=== PATIENT | female | born 1945 | race Caucasian/White ===

== ENCOUNTER 2023-01-22 11:40 | Outpatient (OUT) | payer MEDICARE, OTHER, SELFPAY ==
[2023-01-22 12:27] LABS: Eosinophils Absolute Auto 0.2 10^3/uL (0.0-0.7); Eosinophils Percent Auto 5.8 % (0.9-7.0); Hematocrit 24.2 % (36.0-48.0); Hemoglobin 7.4 g/dL (12.0-16.0); Immature Granulocytes Abs Auto 0.02 10^3/uL (0.00-0.03); Immature Granulocytes Pct Auto 0.5 % (0.0-0.5); Lymphocytes Absolute Auto 0.9 10^3/uL (1.2-3.8); Lymphocytes Percent Auto 22.8 % (20.5-60.0); Mean Corpuscular HGB Conc 30.6 g/dL (29.9-35.2); Mean Corpuscular Hemoglobin 31.2 pg (26.7-34.0); Mean Corpuscular Volume 102.1 fL (81.0-99.0); Mean Platelet Volume 10.7 fL (9.5-13.5); Monocytes Absolute Auto 0.3 10^3/uL (0.3-0.8); Monocytes Percent Auto 7.7 % (1.7-12.0); Neutrophils Absolute Auto 2.6 10^3/uL (1.4-6.5); Neutrophils Percent Auto 62.2 % (43.0-75.0); Platelet Count 284 10^3/uL (150-450); Red Blood Count 2.37 10^6/uL (4.20-5.40); Red Cell Distribution Width 15.6 % (11.0-15.0); White Blood Count 4.1 10^3/uL (4.0-11.0)
[2023-01-22 12:32] LABS: Percent Iron Saturation 8.7 %
[2023-01-22 12:34] LABS: Alanine Aminotransferase 15 U/L (14-59); Albumin Level 3.7 g/dL (3.4-5.0); Alkaline Phosphatase 121 U/L (46-116); Anion Gap 12.7; Aspartate Amino Transferase 15 U/L (15-37); BUN Creatinine Ratio 18.9; Bilirubin Total 0.2 mg/dL (0.2-1.0); Calcium 8.7 mg/dL (8.5-10.1); Carbon Dioxide 28.6 mmol/L (21.0-32.0); Chloride 102 mmol/L (98-107); Estimated GFR (African America 29 (>=60); Estimated GFR (Non-African Ame 24 (>=60); Globulin 3.7 g/dL; Glucose 112 mg/dL (74-106); Potassium 4.3 mmol/L (3.5-5.1); Sodium 139 mmol/L (136-145); Total Protein 7.4 g/dL (6.4-8.2)
== END 2023-01-22 11:41 ==
LOC: LAB 11:45
PROVIDERS: PCP Family Medicine
DX: D50.9 Iron deficiency anemia, unspecified (principal)
CPT/HCPCS: 36415; 80053; 82728; 83540; 83550; 85025

== ENCOUNTER 2023-03-08 13:24 | Outpatient (OUT) | payer MEDICARE, OTHER, SELFPAY ==
[2023-03-08 14:05] LABS: Basophils Absolute Auto 0.1 10^3/uL (0.0-0.1); Basophils Percent Auto 1.3 % (0.2-2.0); Eosinophils Absolute Auto 0.3 10^3/uL (0.0-0.7); Eosinophils Percent Auto 7.3 % (0.9-7.0); Hemoglobin 8.1 g/dL (12.0-16.0); Immature Granulocytes Abs Auto 0.01 10^3/uL (0.00-0.03); Immature Granulocytes Pct Auto 0.2 % (0.0-0.5); Lymphocytes Percent Auto 21.4 % (20.5-60.0); Mean Corpuscular HGB Conc 31.2 g/dL (29.9-35.2); Mean Corpuscular Hemoglobin 32.1 pg (26.7-34.0); Mean Corpuscular Volume 103.2 fL (81.0-99.0); Mean Platelet Volume 9.2 fL (9.5-13.5); Monocytes Absolute Auto 0.4 10^3/uL (0.3-0.8); Monocytes Percent Auto 9.3 % (1.7-12.0); Neutrophils Absolute Auto 2.8 10^3/uL (1.4-6.5); Neutrophils Percent Auto 60.5 % (43.0-75.0); Platelet Count 279 10^3/uL (150-450); Red Blood Count 2.52 10^6/uL (4.20-5.40); Red Cell Distribution Width 16.1 % (11.0-15.0); White Blood Count 4.6 10^3/uL (4.0-11.0)
[2023-03-08 15:06] LABS: Percent Iron Saturation 10.6 %
[2023-03-08 15:13] LABS: Alanine Aminotransferase 16 U/L (14-59); Albumin Globulin Ratio 1.1; Albumin Level 3.8 g/dL (3.4-5.0); Alkaline Phosphatase 100 U/L (46-116); Anion Gap 11.6; Aspartate Amino Transferase 16 U/L (15-37); BUN Creatinine Ratio 19.5; Bilirubin Total 0.2 mg/dL (0.2-1.0); Calcium 8.9 mg/dL (8.5-10.1); Carbon Dioxide 30.6 mmol/L (21.0-32.0); Chloride 104 mmol/L (98-107); Estimated GFR (African America 37 (>=60); Estimated GFR (Non-African Ame 30 (>=60); Globulin 3.4 g/dL; Glucose 78 mg/dL (74-106); Potassium 4.2 mmol/L (3.5-5.1); Sodium 142 mmol/L (136-145); Total Protein 7.2 g/dL (6.4-8.2)
== END 2023-03-08 13:25 | disposition home or self-care (01) ==
LOC: LAB 13:27
PROVIDERS: PCP Internal Medicine
DX: D50.9 Iron deficiency anemia, unspecified (principal)
CPT/HCPCS: 36415; 80053; 82728; 83540; 83550; 85025

== ENCOUNTER 2023-04-06 12:28 | Outpatient (OUT) | payer MEDICARE, OTHER, SELFPAY ==
[2023-04-06 12:57] LABS: Basophils Absolute Auto 0.1 10^3/uL (0.0-0.1); Basophils Percent Auto 1.2 % (0.2-2.0); Eosinophils Absolute Auto 0.4 10^3/uL (0.0-0.7); Eosinophils Percent Auto 7.5 % (0.9-7.0); Hematocrit 29.3 % (36.0-48.0); Hemoglobin 9.2 g/dL (12.0-16.0); Immature Granulocytes Abs Auto 0.03 10^3/uL (0.00-0.03); Immature Granulocytes Pct Auto 0.6 % (0.0-0.5); Lymphocytes Absolute Auto 0.8 10^3/uL (1.2-3.8); Mean Corpuscular HGB Conc 31.4 g/dL (29.9-35.2); Mean Corpuscular Hemoglobin 32.5 pg (26.7-34.0); Mean Corpuscular Volume 103.5 fL (81.0-99.0); Mean Platelet Volume 9.6 fL (9.5-13.5); Monocytes Absolute Auto 0.4 10^3/uL (0.3-0.8); Monocytes Percent Auto 8.1 % (1.7-12.0); Neutrophils Absolute Auto 3.3 10^3/uL (1.4-6.5); Neutrophils Percent Auto 65.6 % (43.0-75.0); Platelet Count 263 10^3/uL (150-450); Red Blood Count 2.83 10^6/uL (4.20-5.40); Red Cell Distribution Width 15.8 % (11.0-15.0)
[2023-04-06 14:24] LABS: Percent Iron Saturation 11.6 %
== END 2023-04-06 12:29 | disposition home or self-care (01) ==
LOC: LAB 12:30
PROVIDERS: PCP Internal Medicine; Visit Provider Urology
DX: D50.9 Iron deficiency anemia, unspecified (principal); E03.9 Hypothyroidism, unspecified
CPT/HCPCS: 36415; 82728; 83540; 83550; 84443; 85025

== ENCOUNTER 2023-04-06 12:32 | Outpatient (OUT) | payer MEDICARE, OTHER, SELFPAY ==
[2023-04-06 13:28] LABS: Thyroid Stimulating Hormone 9.451 uIU/mL (0.358-3.740)
== END 2023-04-06 12:33 | disposition home or self-care (01) ==
PROVIDERS: PCP Internal Medicine; Visit Provider Internal Medicine
DX: E03.9 Hypothyroidism, unspecified (principal)
CPT/HCPCS: 36415; 84443

== ENCOUNTER 2023-05-05 10:19 | Outpatient (OUT) | payer MEDICARE, OTHER, SELFPAY ==
--- NOTE | 2023-05-05 10:44 | XR_ITS ---
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 The lungs are clear. There is no evidence of pleural effusion or pneumothorax. There are calcified nodes of the left hilar region, stable. There is calcification of the left mitral valve annulus, stable. XR/XR chest 2V IMPRESSION: Chest radiograph is essentially within normal limits. Stable chest. Electronically authenticated by: MJ REEVES Date: 05/05/2023 11:12
== END 2023-05-05 10:20 | disposition home or self-care (01) ==
LOC: RAD 10:22
PROVIDERS: PCP Internal Medicine; Visit Provider Internal Medicine
DX: J44.1 Chronic obstructive pulmonary disease with (acute) exacerbation (principal)
CPT/HCPCS: 71046

== ENCOUNTER 2023-05-05 10:26 | Outpatient (OUT) | payer MEDICARE, OTHER, SELFPAY ==
[2023-05-05 11:42] LABS: Basophils Absolute Auto 0.1 10^3/uL (0.0-0.1); Basophils Percent Auto 1.1 % (0.2-2.0); Eosinophils Absolute Auto 0.1 10^3/uL (0.0-0.7); Eosinophils Percent Auto 0.9 % (0.9-7.0); Hematocrit 28.6 % (36.0-48.0); Immature Granulocytes Abs Auto 0.09 10^3/uL (0.00-0.03); Immature Granulocytes Pct Auto 1.6 % (0.0-0.5); Lymphocytes Absolute Auto 0.8 10^3/uL (1.2-3.8); Lymphocytes Percent Auto 14.7 % (20.5-60.0); Mean Corpuscular HGB Conc 31.5 g/dL (29.9-35.2); Mean Corpuscular Hemoglobin 32.6 pg (26.7-34.0); Mean Corpuscular Volume 103.6 fL (81.0-99.0); Mean Platelet Volume 10.1 fL (9.5-13.5); Monocytes Absolute Auto 0.3 10^3/uL (0.3-0.8); Monocytes Percent Auto 4.9 % (1.7-12.0); Neutrophils Absolute Auto 4.2 10^3/uL (1.4-6.5); Neutrophils Percent Auto 76.8 % (43.0-75.0); Platelet Count 405 10^3/uL (150-450); Red Blood Count 2.76 10^6/uL (4.20-5.40); Red Cell Distribution Width 16.3 % (11.0-15.0); White Blood Count 5.5 10^3/uL (4.0-11.0)
[2023-05-05 12:37] LABS: Percent Iron Saturation 18.7 %
== END 2023-05-05 10:27 | disposition home or self-care (01) ==
LOC: LAB 10:28
PROVIDERS: PCP Internal Medicine
DX: D50.9 Iron deficiency anemia, unspecified (principal)
CPT/HCPCS: 36415; 82728; 83540; 83550; 85025

== ENCOUNTER 2023-05-18 09:56 | Outpatient (OUT) | payer MEDICARE, OTHER, SELFPAY ==
[2023-05-18 10:25] LABS: Basophils Percent Auto 0.4 % (0.2-2.0); Eosinophils Absolute Auto 0.2 10^3/uL (0.0-0.7); Eosinophils Percent Auto 2.6 % (0.9-7.0); Hematocrit 31.1 % (36.0-48.0); Hemoglobin 9.7 g/dL (12.0-16.0); Immature Granulocytes Abs Auto 0.06 10^3/uL (0.00-0.03); Immature Granulocytes Pct Auto 0.8 % (0.0-0.5); Lymphocytes Absolute Auto 0.8 10^3/uL (1.2-3.8); Lymphocytes Percent Auto 10.3 % (20.5-60.0); Mean Corpuscular HGB Conc 31.2 g/dL (29.9-35.2); Mean Corpuscular Hemoglobin 32.3 pg (26.7-34.0); Mean Corpuscular Volume 103.7 fL (81.0-99.0); Mean Platelet Volume 11.3 fL (9.5-13.5); Monocytes Absolute Auto 0.7 10^3/uL (0.3-0.8); Monocytes Percent Auto 9.5 % (1.7-12.0); Neutrophils Absolute Auto 5.9 10^3/uL (1.4-6.5); Neutrophils Percent Auto 76.4 % (43.0-75.0); Platelet Count 198 10^3/uL (150-450); Red Cell Distribution Width 16.8 % (11.0-15.0); White Blood Count 7.8 10^3/uL (4.0-11.0)
[2023-05-18 15:54] LABS: Anion Gap 13.6; Bilirubin Total 0.2 mg/dL (0.2-1.0); Calcium 8.1 mg/dL (8.5-10.1); Carbon Dioxide 26.2 mmol/L (21.0-32.0); Chloride 105 mmol/L (98-107); Estimated GFR (African America 29 (>=60); Estimated GFR (Non-African Ame 24 (>=60); Glucose 118 mg/dL (74-106); Potassium 3.8 mmol/L (3.5-5.1); Sodium 141 mmol/L (136-145)
[2023-05-18 15:55] LABS: Alanine Aminotransferase 17 U/L (14-59); Albumin Globulin Ratio 0.9; Albumin Level 3.2 g/dL (3.4-5.0); Alkaline Phosphatase 110 U/L (46-116); Aspartate Amino Transferase 13 U/L (15-37); Globulin 3.4 g/dL; Total Protein 6.6 g/dL (6.4-8.2)
== END 2023-05-18 09:57 | disposition home or self-care (01) ==
LOC: LAB 09:58
PROVIDERS: PCP Internal Medicine; Visit Provider Internal Medicine
DX: K92.2 Gastrointestinal hemorrhage, unspecified (principal); I10 Essential (primary) hypertension; I95.9 Hypotension, unspecified
CPT/HCPCS: 36415; 80053; 85025

== ENCOUNTER 2023-07-09 08:45 | Outpatient (OUT) | payer MEDICARE, OTHER, SELFPAY ==
[2023-07-09 10:19] LABS: Free T3 2.02 pg/mL (2.18-3.98); Thyroid Stimulating Hormone 3.217 uIU/mL (0.358-3.740)
[2023-07-09 11:08] LABS: Free T4 0.95 ng/dL (0.76-1.46)
== END 2023-07-09 08:46 | disposition home or self-care (01) ==
LOC: LAB 08:46
PROVIDERS: PCP Internal Medicine; Visit Provider Internal Medicine
DX: D50.9 Iron deficiency anemia, unspecified (principal); E03.9 Hypothyroidism, unspecified
CPT/HCPCS: 36415; 82728; 83540; 83550; 84436; 84439; 84443; 84481; 85025

== ENCOUNTER 2023-07-09 08:48 | Outpatient (OUT) | payer MEDICARE, OTHER, SELFPAY ==
[2023-07-09 09:08] LABS: Basophils Absolute Auto 0.1 10^3/uL (0.0-0.1); Basophils Percent Auto 1.4 % (0.2-2.0); Eosinophils Absolute Auto 0.4 10^3/uL (0.0-0.7); Eosinophils Percent Auto 9.1 % (0.9-7.0); Hematocrit 38.9 % (36.0-48.0); Hemoglobin 12.4 g/dL (12.0-16.0); Immature Granulocytes Abs Auto 0.03 10^3/uL (0.00-0.03); Immature Granulocytes Pct Auto 0.7 % (0.0-0.5); Lymphocytes Percent Auto 22.4 % (20.5-60.0); Mean Corpuscular HGB Conc 31.9 g/dL (29.9-35.2); Mean Corpuscular Hemoglobin 33.3 pg (26.7-34.0); Mean Corpuscular Volume 104.6 fL (81.0-99.0); Mean Platelet Volume 11.7 fL (9.5-13.5); Monocytes Absolute Auto 0.4 10^3/uL (0.3-0.8); Monocytes Percent Auto 8.4 % (1.7-12.0); Neutrophils Absolute Auto 2.6 10^3/uL (1.4-6.5); Platelet Count 191 10^3/uL (150-450); Red Blood Count 3.72 10^6/uL (4.20-5.40); White Blood Count 4.4 10^3/uL (4.0-11.0)
[2023-07-09 10:03] LABS: Percent Iron Saturation 79.7 %
== END 2023-07-09 08:49 | disposition home or self-care (01) ==
PROVIDERS: PCP Internal Medicine
DX: D50.9 Iron deficiency anemia, unspecified (principal)
CPT/HCPCS: 36415; 82728; 83540; 83550; 85025

== ENCOUNTER 2024-02-25 08:46 | Outpatient (OUT) | payer MEDICARE, OTHER, SELFPAY ==
--- OUTSIDE RECORDS SUMMARY | 2024-02-25 08:50 | XMS_ITS ---
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 Name Role Phone Alem Jimenez Unavailable Jarrell Granados Unavailable DO Ceasar Dunn Primary Care Provider MD Bell Camargo Attending Provider MD Jarrell Granados Referring Provider [phone] DO Ceasar Dunn Primary Care Provider MD Bell Camargo Attending Provider [phone] MD Jarrell Garnados Referring Provider Ceasar Dunn Unavailable Unavailable Unavailable DO Ceasar Dunn Primary Care Provider [phone] MD Bell Camargo Attending Provider MD Jarrell Granados Referring Provider DO Ceasar Dunn Primary Care Provider MD Bell Camargo Attending Provider [phone] MD Jarrell Granados Referring Provider RAMAN, DR BELL Maldonado Attending Unavailable RAMAN, DR BELL Maldonado Admitting Unavailable RAMAN, DR BELL Maldonado Consulting Unavailable HOUSE, DR MCDONOUGH Primary Care Unavailable RAMAN, DR BELL Maldonado Attending Unavailable RAMAN, DR BELL Maldonado Admitting Unavailable RAMAN, DR BELL Maldonado Consulting Unavailable HOUSE, DR MCDONOUGH Primary Care Unavailable RAMAN, DR BELL Maldonado Attending Unavailable RAMAN, DR BELL Maldonado Admitting Unavailable RAMAN, DR BELL Maldonado Consulting Unavailable HOUSE, DR MCDONOUGH Primary Care Unavailable RAMAN, DR BELL Maldonado Attending Unavailable RAMAN, DR BELL Maldonado Admitting Unavailable RAMAN, DR BELL Maldonado Consulting Unavailable HOUSE, DR MCDONOUGH Primary Care Unavailable RAMAN, DR BELL Maldonado Attending Unavailable RAMAN, DR BELL Maldonado Admitting Unavailable HOUSE, DR MCDONOUGH Primary Care Unavailable RAMAN, DR BELL Maldonado Consulting Unavailable RAMAN, DR BELL Maldonado Attending Unavailable RAMAN, DR BELL Maldonado Admitting Unavailable HOUSE, DR MCDONOUGH Primary Care Unavailable RAMAN, DR BELL Maldonado Consulting Unavailable RAMAN, DR BELL Maldonado Attending Unavailable RAMAN, DR BELL Maldonado Admitting Unavailable RAMAN, DR BELL Maldonado Consulting Unavailable HOUSE, DR MCDONOUGH Primary Care Unavailable HOUSE, DR MCDONOUGH Attending Unavailable HOUSE, DR MCDONOUGH Admitting Unavailable HOUSE, DR MCDONOUGH Primary Care Unavailable HOUSE, DR MCDONOUGH Consulting Unavailable ZIEBER, DR LOVE De La Rosa Consulting Unavailable HOUSE, DR MCDONOUGH Primary Care Unavailable RAMAN, DR BELL Maldonado Attending Unavailable RAMAN, DR BELL Maldonado Admitting Unavailable RAMAN, DR BELL Maldonado Consulting Unavailable IVÁN, DR OROZCO Attending Unavailable IVÁN, DR OROZCO Admitting Unavailable HOUSE, DR MCDONOUGH Primary Care Unavailable PAY ., DR SHIN Consulting Unavailable IVÁN, DR OROZCO Consulting Unavailable GRECHNY ., JAIME DORADO Consulting Unavailabl e KLIPPER, ALEM Consulting Unavailable REINECK, DR THERESA Wiley Consulting Unavailabl e REINECK, DR THERESA Wiley Attending Unavailabl e HOUSE, DR MCDONOUGH Primary Care Unavailable REINECK, DR THERESA Wiley Admitting Unavailabl e MARYLOU, ASIYA Consulting Unavailable HOUSE, DR MCDONOUGH Primary Care Unavailable RAMAN, DR BELL Maldonado Attending Unavailable RAMAN, DR BELL Maldonado Admitting Unavailable RAMAN, DR BELL Maldonado Consulting Unavailable Markell, DO Mcdonough Primary Care Provider MD Bell Camargo Attending Provider [phone] MD Jarrell Granados Referring Provider [phone] DO Ceasar Dunn Primary Care Provider MD Bell Camargo Attending Provider [phone] MD Jarrell Granados Referring Provider DO Ceasar Dunn Primary Care Provider [phone] MD Bell Camargo Attending Provider MD Jarrell Granados Referring Provider [phone] Criss Nunez Unavailable Tamar Alvarado Unavailable MD Bell Camargo Attending Provider MD Jarrell Granados Referring Provider IRINA Lomas Primary Care Provider Shaikh Reece MD Primary Care Provider NINFA FAM Attending Unavailable GIGI CASON Attending Unavailable MD Bell Camargo Attending Provider MD Jarrell Granados Referring Provider [phone] IRINA Lomas Primary Care Provider JAYY LOMAS Attending Unavailable JAYY LOMAS Attending Unavailable JAYY LOMAS Attending Unavailable Jayy Lomas Primary Care Unavailable Bell Camargo Admitting Unavailable Bell Camargo Attending Unavailable Jarrell Granados Referring Unavailable Allergies Allergy Classification Reported Allergen(s) Allergy Type Date of Onset Reaction(s) Facility (4 sources) Flecainide; Translations: [Flecainide Acetate TABS] Drug Allergy Hives, Dizziness -[facility] [facility] DO Work Phone: Encounters Encounter Date Encounter Type Care Provider Facility Start: 02-03-2024 ambulatory Jayy Lomas Facility:[facility] Start: 01-24-2024 End: 01-24-2024 ambulatory JAYY LOMAS Not Available Start: 01-07-2024 End: 01-07-2024 ambulatory MD Jarrell Granados Work Phone: [facility] Work Phone: Start: 01-07-2024 End: 01-07-2024 Patient encounter procedure MD Jarrell Granados Work Phone: [facility] Work Phone: Start: 01-06-2024 Registered Recurring MD Tanmay Granados Work Phone: [facility] Work Phone: Start: 01-06-2024 End: 01-06-2024 Patient encounter procedure MD Jarrell Granados [facility] Work Phone: Start: 11-17-2023 End: 11-17-2023 ambulatory JAYY Waldrop DIRK Not Available Start: 10-14-2023 End: 10-14-2023 ambulatory GIGI [facility] Start: 09-28-2023 Registered Recurring MD Tanmay Granados [facility] Work Phone: Start: 09-28-2023 End: 09-28-2023 ambulatory MD Jarrell Granados Work Phone: [facility] Work Phone: Start: 09-28-2023 End: 09-28-2023 Patient encounter procedure MD Jarrell Granados Work Phone: [facility] Work Phone: Start: 09-26-2023 Tonie Reece MD Work Phone: [facility] Comment on above: Hypothyroidism, unsp ecified (CMS/HCC) Start: 09-23-2023 End: 09-23-2023 ambulatory JAYY Palma LOMAS Not Available Start: 09-18-2023 End: 09-18-2023 ambulatory Tamar Alvarado Other [employer] Other Start: 09-18-2023 Office outpatient visit 25 minutes Tamar Alvarado [facility] Start: 08-08-2023 End: 08-08-2023 ambulatory Criss Enrique Other [employer] Other Start: 08-08-2023 Office outpatient visit 15 minutes Criss Enrique [facility] Start: 08-08-2023 End: 08-08-2023 Patient encounter procedure MD Jarrell Granados Work Phone: [facility] Work Phone: Start: 06-10-2023 End: 06-10-2023 ambulatory DO Ceasar House Work Phone: [facility] Work Phone: Start: 06-10-2023 End: 06-10-2023 Registered Recurring DO Ceasar House Work Phone: [facility] Work Phone: Start: 03-30-2023 End: 03-30-2023 ambulatory [facility] Start: 03-10-2023 End: 03-10-2023 ambulatory DO Ceasar House Work Phone: [facility] Work Phone: Start: 03-10-2023 End: 03-10-2023 Registered Recurring DO Ceasar House Work Phone: [facility] Work Phone: Start: 01-27-2023 End: 01-27-2023 ambulatory DO Ceasar House Work Phone: [facility] Work Phone: Start: 01-27-2023 End: 01-27-2023 Registered Recurring DO Ceasar House Work Phone: [facility] Work Phone: Start: 11-27-2022 End: 11-27-2022 ambulatory DO Ceasar House Work Phone: [facility] Work Phone: Start: 11-27-2022 End: 11-27-2022 Registered Recurring DO Ceasar House Work Phone: [facility] Work Phone: Start: 11-24-2022 End: 11-25-[address] CEASAR DUNN Facility:[facility] Start: 09-25-2022 End: 09-26-[address] CEASAR DUNN Facility:[facility] Start: 08-25-2022 End: 08-26-[address] BELL CAMARGO Facility:[facility] Start: 08-19-2022 End: 08-19-[address] PAM MINOR Facility:[facility] Start: 07-02-2022 Rx Renewal Ceasar P Hous e Work Phone: [facility] 600 DO Work Phone: Start: 06-19-2022 End: 06-19-2022 ambulatory Jarrell Granados Other [facility] [employer] Other Start: 06-19-2022 Patient encounter procedure Jarrell Granados [facility] Start: 06-03-2022 Rx Renewal Ceasar P Hous e Work Phone: [facility] [place] 250 DO Work Phone: Start: 05-28-2022 End: 05-28-2022 ambulatory DO Ceasar House Work Phone: [facility] Work Phone: Start: 05-28-2022 End: 05-28-2022 Registered Recurring DO Ceasar House Work Phone: [facility] Start: 05-25-2022 End: 05-26-[address] BELL CAMARGO Facility:[facility] Start: 04-23-2022 End: 04-23-2022 Registered Recurring DO Ceasar House Work Phone: [facility] Start: 04-16-2022 End: 04-17-[address] BELL CAMARGO Facility:[facility] Start: 04-09-2022 End: 04-10-[address] BELL CAMARGO Facility:[facility] Start: 02-27-2022 End: 02-28-[address] BELL CAMARGO Facility:[facility] Start: 02-21-2022 End: 02-21-[address] THERESA ENGLISH Facility:[facility] Start: 01-30-2022 End: 01-31-[address] BELL CAMARGO Facility:[facility] Start: 01-01-2022 End: 01-02-[address] BELL CAMARGO Facility:[facility] Start: 12-22-2021 End: 12-23-[address] CEASAR DUNN Facility:[facility] Start: 11-12-2021 Patient encounter procedure Ceasar Dunn Work Phone: [facility] DO Work Phone: Start: 10-23-2021 End: 10-23-2021 ambulatory Jarrell Sandrasalinaalex Other [employer] Other Start: 10-23-2021 Patient encounter procedure Jarrell Granados [facility] Start: 09-29-2021 End: 09-29-2021 ambulatory Jarrell Sandrabaltazar Other [employer] Other Start: 09-29-2021 Telephone encounter Jarrell FLORES [facility] Start: 09-22-2021 End: 09-22-2021 ambulatory Jarrell Sandrabaltazar Other [employer] Other Start: 09-22-2021 Telephone encounter Jarrell FLORES [facility] Start: 09-10-2021 End: 09-10-2021 ambulatory Alem Jimenez Other [employer] Other Start: 09-10-2021 Telephone encounter Alem Jimenez [facility] Start: 09-04-2021 End: 09-04-2021 ambulatory Jarrell Sandrabaltazar Other [employer] Other Start: 09-04-2021 [facility] visit new patient Jarrell Sandrabaltazar [facility] Medical Equipment Procedure Code Equipment Code Equipment Origin al Text Equipment Identifier Dates Capsule endoscopy, for patency of lumen evaluation Video capsule endoscopy system [id number] [facility] Start: 10-15-2021 Goals Date Patient Goal Desired Activity /State Immunizations Immunization Date Immunization Notes [facility] Influenza, Seasonal, Quadrivalent, Adjuvanted Shaikh Chevy LUBIN Work Phone: [facility] 06-11-2023 RSV, recombinant, protein subunit RSVpreF, adjuvant reconstitu, 120mcg/0.5mL, PF (Arexvy) Shaikh Chevy LUBIN Work Phone: [facility] 06-18-2022 Influenza, Seasonal, Quadrivalent, Adjuvanted Shaikh Chevy LUBIN Work Phone: [facility] 06-21-2021 influenza, high dose seasonal, preservative-free Ceasar [facility] Work Phone: 05-27-2020 Fluad Quadrivalent 0 .5 ML Intramuscular Prefilled Syringe Ceasar P [employer] [facility] Work Phone: 05-23-2020 influenza, seasonal, injectable Ceasar P Cambria [facility] DO Work Phone: 07-26-2019 Seasonal trivalent influenza vaccine, adjuvanted, preservative free Ceasar P House [facility] DO Work Phone: 06-23-2019 influenza, high dose seasonal, preservative-free Ceasar P Cambria Work Phone: [facility] 250 DO Work Phone: 05-23-2018 influenza virus vaccine, unspecified formulation Ceasar P Cambria Work Phone: [facility] 250 DO Work Phone: 05-09-2018 Seasonal trivalent influenza vaccine, adjuvanted, preservative free Ceasar P House [facility] DO Work Phone: 05-02-2017 Seasonal trivalent influenza vaccine, adjuvanted, preservative free Ceasar P House Work Phone: [facility] [place] DO Work Phone: 06-14-2016 pneumococcal conjuga te vaccine, 13 valent [email or web address] [facility] Phone[facility] Work Phone: 06-16-2015 influenza, high dose seasonal, preservative-free [email or web address] [facility] DO Work Phone: 06-16-2015 pneumococcal conjuga te vaccine, 13 valent [email or web address] Work Phone: [facility] [place] [facility] DO Work Phone: Medications Current Medications Medication Drug Class(es) Dates Sig (Normalized) Sig (Original) albuterol 0.83 mg/ml inhalation solution (4 sources) beta2-Adrenergic Agonist Start: 05-28-2023 albuterol (2.5 MG/3ML) 0.083% nebulizer solution Take 2.5 mg by nebulization every 4 (four) hours if needed 0 05/28/2023 Active Start: 04-14-2023 take 2 puff(s) by in halation every four hours albuterol HFA 90 mcg/act inhaler Inhale 2 puffs every 4 (four) hours if needed 0 04/14/2023 Active Albuterol Sulfat e (2.5 MG/3ML) 0.083% 3 mL as needed Inhalation every 6 hrs Active amLODIPine 5 mg oral tablet (19 sources) Dihydropyridine Calcium Channel Cameron Start: 06-25-2023 take 1 tablet by mouth in the morning amLODIPine (Norvasc) 5 MG tablet Take 5 mg by mouth in the morning. 0 06/25/2023 Active Start: 09-15-2021 End: 06-10-2023 take 5 mg by mouth once daily Amlodipine Discontinued 5 MG PO Daily September 15, 2021 1:00am June 10, 2023 9:25am take 1 tablet by meagan th every twenty-four hours amLODIPine Besylate 2.5 MG 1 tablet Orally Once a day Active azithromycin 250 mg oral tablet (3 sources) Macrolide Antimicrobial Start: 09-23-2023 End: 09-28-2023 take 2 tablets by mouth once daily, then take 1 tablet by mouth once daily azithromycin (Zithromax) 250 MG tablet Indications: Acute non-recurrent pansinusitis Take 2 tablets (500 mg) by mouth Daily for 1 day, THEN 1 tablet (250 mg) Daily for 4 days. 6 tablet 0 09/23/2023 09/28/2023 Active Start: 08-08-2023 Azithromycin 2 50 MG Take 2 tablets on first day then 1 tablet daily for 4 days Orally as directed for 5 Jul, Not-Taking/PRN doxycycline hyclate 100 mg oral capsule (1 source) Tetracycline-class Drug Start: 09-18-2023 take 1 capsule by mouth every twelve hours Doxycycline Hyclate 100 MG 1 capsule Orally Twice a day for 10 day(s) Aug, Active folic acid 0.4 mg / vitamin b12 0.5 mg oral tablet (8 sources) Vitamin B12 Start: 05-28-2022 take 1 tablet by mouth once daily Vitamin K14-Asstu Acid Active 1 TAB PO Daily May 28, 2022 12:00am administer with a meal furosemide 40 mg oral tablet (18 sources) Loop Diuretic Start: 06-25-2023 take 1 tablet by mouth in the morning furosemide (Lasix) 40 MG tablet Take 40 mg by mouth in the morning. 0 06/25/2023 Active Start: 09-15-2021 take 20 mg by mouth once daily Furosemide Active 20 MG PO Daily September 15, 2021 1:00am levothyroxine sodium 0.112 mg oral tablet (20 sources) l-Thyroxine Start: 06-25-2023 End: 03-25-2024 take 1 tablet by mouth in the morning levothyroxine (Synthroid, Levoxyl) 112 MCG tablet Indications: Hypothyroidism, unspecified (CMS/HCC) Take 1 tablet (112 mcg) by mouth in the morning. 90 tablet 1 09/27/2023 03/25/2024 Active Start: 04-14-2021 take 88 ug by mouth once daily Levothyroxine Active 88 MCG PO Daily April 14, 2021 12:00am Start: 07-28-2019 End: 04-14-2021 Levothyroxine (Synthroid) 75 mcg tablet Discontinued 88 MCG PO DAILY@0330 July 28, 2019 10:16am April 14, 2021 3:39pm Start: 06-04-2019 End: 07-28-2019 take 1 tablet by mouth once daily Levothyroxine (Synthroid) 75 mcg Tablet Discontinued 75 MCG PO DAILY@0630 June 04, 2019 12:00am July 28, 2019 10:17am Start: 06-01-2019 End: 06-04-2019 take 1 tablet by mouth once daily Levothyroxine Discontinued 1 TAB PO Daily June 01, 2019 12:00am June 04, 2019 11:45am take 1 tablet by meagan th once daily in the morning Levothyroxine Sodium 88 MCG 1 tablet in the morning on an empty stomach Orally Once a day Active methocarbamol 500 mg oral tablet (20 sources) Muscle Relaxant Start: 06-25-2023 take 1 tablet by mouth every twenty-four hours as needed methocarbamol (Robaxin) 500 MG tablet Take 500 mg by mouth Daily as needed 0 06/25/2023 Active Start: 09-15-2021 take 500 mg by mouth twice daily Methocarbamol Active 500 MG PO Twice daily September 15, 2021 1:00am Robaxin 500 MG T ABS TAKE 1 TABLET 3 TIMES DAILY. Quantity: 0 Refills: 0 Ordered: 10-Jun-2021 DO Active methylPREDNISolone 4 mg oral tablet (12 sources) Corticosteroid Start: 08-08-2023 Medrol (Misbah) 4 MG as directed Orally for daily dose take half with breakfast half with dinner for 6 days Aug, Active Start: 06-01-2019 End: 06-04-2019 Methylprednisolone Discontin ued 0 TAB PO Use as Directed May 31, 2019 11:00pm June 04, 2019 10:45am Start: 06-01-2019 End: 06-04-2019 Methylprednisolone Discontin ued 0 TAB PO Use as Directed June 01, 2019 12:00am June 04, 2019 11:45am Multivitamin preparation (9 sources) Start: 06-01-2019 take 1 tablet by mouth once daily Multivitamin Active 1 TAB PO Daily May 31, 2019 11:00pm Start: 06-01-2019 take 1 tablet by meagan th once daily Multivitamin Active 1 TAB PO Daily June 01, 2019 12:00am nitroglycerin 0.4 mg sublingual tablet (9 sources) Nitrate Vasodilator Start: 08-01-2019 Nitroglycerin Active 0.4 MG SUBLINGUAL every 5 to 15 minutes August 01, 2019 1:00am propafenone hydrochloride 150 mg oral tablet (20 sources) Antiarrhythmic Start: 04-15-2021 take 150 mg by mouth every eight hours Propafenone Active 150 MG PO Q8H 90 30 April 15, 2021 12:00am take 1 tablet by meagan th every twelve hours Propafenone HCl 150 MG 1 tablet Orally T WICE A DAY Active simethicone 80 mg chewable tablet (1 source) Start: 06-19-2022 take 1 tablet by mouth three times daily as needed Simethicone 80 MG 1 tablet Orally three times a day as needed for 30 day(s) May, Active traMADol hydrochloride 50 mg oral tablet (9 sources) Opioid Agonist Start: 10-30-2021 take 50 mg by mouth twice daily Tramadol Active 50 MG PO Twice daily October 30, 2021 1:00am Completed/Discontinued Medications Medication Drug Class(es) Dates Sig (Normalized) Sig (Original) apixaban 5 mg oral tablet (13 sources) Factor Xa Inhibitor Start: 04-14-2021 End: 09-15-2021 take 1 tablet by mouth twice daily Apixaban (Eliquis) 5 mg Tablet Discontinued 5 MG PO Twice daily April 14, 2021 12:00am September 15, 2021 10:30am aspirin 81 mg delayed release oral tablet (20 sources) Platelet Aggregation Inhibitor, Nonsteroidal Anti-inflammatory Drug Start: 07-28-2019 End: 04-15-2021 Aspirin (Jackie Low Dose Aspirin) 81 mg Tablet,Delayed Release (Dr/Ec) Discontinued 81 MG PO Daily July 28, 2019 1:00am April 15, 2021 8:35am Start: 06-04-2019 End: 07-28-2019 take 1 tablet by mouth once daily Aspirin Discontinued 1 TAB PO Daily 0 June 04, 2019 10:44am July 28, 2019 9:17am Start: 06-04-2019 End: 07-28-2019 take 1 tablet by mouth once daily Aspirin Discontinued 1 TAB PO Daily 0 June 04, 2019 11:44am July 28, 2019 10:17am Start: 06-01-2019 End: 06-04-2019 take 1 tablet by mouth every other day Aspirin Discontinued 1 TAB PO every other day May 31, 2019 11:00pm June 04, 2019 10:45am Start: 06-01-2019 End: 06-04-2019 take 1 tablet by mouth every other day Aspirin Discontinued 1 TAB PO every other day June 01, 2019 12:00am June 04, 2019 11:45am cefdinir 300 mg oral capsule (9 sources) Cephalosporin Antibacterial Start: 06-04-2019 End: 07-28-2019 take 300 mg by mouth twice daily Cefdinir Discontinued 300 MG PO Twice daily 05 27June 04, 2019 12:00am July 28, 2019 9:43am 24 hr dilTIAZem hydrochloride 120 mg extended release oral capsule (18 sources) Calcium Channel Cameron Start: 07-28-2019 End: 04-14-2021 take 120 mg by mouth once daily Diltiazem Hcl Discontinued 120 MG PO Daily July 28, 2019 1:00am April 14, 2021 3:39pm Start: 06-02-2019 End: 07-28-2019 take 180 mg by mouth once daily Diltiazem Hcl Discontinued 180 MG PO Daily June 02, 2019 12:00am July 28, 2019 9:44am ferrous sulfate 325 mg delayed release oral tablet (14 sources) Start: 09-15-2021 End: 04-23-2022 take 325 mg by mouth once daily Ferrous Sulfate Discontinued 325 MG PO Daily September 15, 2021 1:00am April 23, 2022 8:06am take 1 tablet by mouth once lakes[place] y FeroSul 325 (65 Fe) MG TAKE 1 TABLET BY MOUTH DAILY Oral for 30 Active folic acid 1 mg oral tablet (18 sources) Start: 05-28-2022 End: 01-06-2024 take 3 mg by mouth once daily Folic Acid Discontinued 3 MG PO Daily May 28, 2022 11:31am January 06, 2024 9:57am Start: 05-28-2022 End: 05-28-2022 take 1 mg by mouth once daily Folic Acid Discontinued 1 MG PO Daily May 28, 2022 12:00am May 28, 2022 11:32am folic acid (Folv ite) 1 MG tablet Take 3 mg by mouth in the morning. 0 Active Folic Acid Activ e 12 hr guaiFENesin 600 mg extended release oral tablet (9 sources) Start: 06-04-2019 End: 07-28-2019 take 1 tablet by mouth twice daily, then take 1 tablet by mouth every twelve hours Guaifenesin (Mucinex) 600 mg Tablet Extended Release 12hr Discontinued 600 MG PO Twice daily June 04, 2019 12:00am July 28, 2019 9:44am hydroCHLOROthiazide 25 mg / triamterene 37.5 mg oral tablet (4 sources) Potassium-sparing Diuretic, Thiazide Diuretic take 1 tablet by mouth once daily Triamterene-HCT Z 37.5-25 MG Oral Tablet TAKE 1 TABLET DAILY DIRECTED. Quantity: 0 Refills: 0 Ordered: 10-Jun-2021 DO Active ipratropium bromide 0.2 mg/ml inhalation solution (9 sources) Anticholinergic Start: 06-04-2019 End: 07-28-2019 take 0.5 mg by inhalation four times daily Ipratropium [place] Discontinued 0.5 MG INHALATION Four times daily - Respiratory 150 June 04, 2019 12:22pm July 28, 2019 9:44am levalbuterol 0.417 mg/ml inhalation solution (9 sources) beta2-Adrenergic Agonist Start: 06-04-2019 End: 07-28-2019 take 1.25 mg by inhalation four times daily Levalbuterol Hcl Discontinued 1.25 MG INHALATION Four times daily - Respiratory 90 June 04, 2019 12:00am July 28, 2019 9:44am levoFLOXacin 500 mg oral tablet (9 sources) Quinolone Antimicrobial Start: 06-01-2019 End: 06-04-2019 take 1 tablet by mouth once daily Levofloxacin Discontinued 1 TAB PO Daily June 01, 2019 12:00am June 04, 2019 11:45am 24 hr metoprolol succinate 50 mg extended release oral tablet (20 sources) beta-Adrenergic Cameron Start: 04-14-2021 End: 09-15-2021 take 75 mg by mouth once daily Metoprolol Succinate Discontinued 75 MG PO Daily April 14, 2021 3:39pm September 15, 2021 10:30am Start: 06-04-2019 End: 04-14-2021 take 50 mg by mouth once daily Metoprolol Succinate Di scontinued 50 MG PO Daily June 04, 2019 12:00am April 14, 2021 3:39pm Start: 06-01-2019 End: 06-04-2019 take 1 tablet by mouth once daily Metoprolol Succinate Discontinued 1 TAB PO Daily June 01, 2019 12:00am June 04, 2019 11:45am omeprazole 40 mg delayed release oral capsule (14 sources) Proton Pump Inhibitor Start: 09-15-2021 End: 10-30-2021 take 40 mg by mouth once daily Omeprazole Discontinued 40 MG PO Daily September 15, 2021 1:00am October 30, 2021 2:03pm potassium chloride 10 meq extended release oral capsule (9 sources) Start: 08-01-2019 End: 04-14-2021 take 10 mEq by mouth once daily Potassium Chloride Discontinued 10 MEQ PO Daily August 01, 2019 1:00am April 14, 2021 3:39pm predniSONE 10 mg oral tablet (9 sources) Start: 06-04-2019 End: 07-28-2019 Prednisone Discontinued 10 MG PO Daily June 04, 2019 12:00am July 28, 2019 9:45am 40mg x 3, 30mg x 3, 20mg x 3, 10mg x 3 then stop valsartan 160 mg oral tablet (13 sources) Angiotensin 2 Receptor Cameron Start: 04-14-2021 End: 09-15-2021 take 160 mg by mouth twice daily Valsartan Discontinued 160 MG PO Twice daily April 14, 2021 12:00am September 15, 2021 10:30am Payers Date Payer Category Payer Self-pay [id number] 2022 Unknown 2021 Unknown [id number] 2011 Medicare MEDICARE MEDICAR E PART B [id number] 2011-[place] [address] [place] [address] Medicare [id number] 1958 Medicare [id number] 1959 Unknown [id number] 1945 Unknown [id number] 1945 Unknown [id number] 2.16.840.1.065485.3.579.2.593 1946 Unknown [id number] 2.16.840.1.628926.3.579.2.593 1946 Unknown [id number] 2.16.840.1.124353.3.579.2.593 1946 Unknown [id number] 2.16.840.1.642963.3.579.2.593 1946 Unknown [id number] 2.16.840.1.654980.3.579.2.593 1946 Unknown [id number] 2.16.840.1.080355.3.579.2.593 1946 Unknown [id number] 2.840.1.357754.3.579.2.593 1946 Unknown [id number] 2.16.840.1.483133.3.579.2.593 1946 Unknown [id number] 2.16.840.1.673791.3.579.2.593 1946 Unknown [id number] 2.16.840.1.854091.3.579.2.593 1946 Unknown [id number] 2.840.1.923795.3.579.2.593 1946 Unknown [id number] 2.16.840.1.867718.3.579.2.1259 1946 Unknown [id number] 2.16.840.1.020840.3.579.2.1259 1946 Unknown [id number] 2.16.840.1.810581.3.579.2.1259 Medicare [place] MCR PFFS [id number] Unknown [id number] 2.16.8 [id number] Unknown [id number] [id number] Unknown [id number] Plan of Treatment Date Care Activity Detail Author Start: 01-24-2024 End: 01-24-2024 Patient encounter procedure 01/24/2024 9:15 AM EDT Office Visit [facility] [address] [facility] [address] [place] [address] Jayy Lomas MD [address] [facility] [address] [place] [address] [facility] Start: 10-13-2023 [facility] Start: 09-28-2023 [facility] Start: 09-02-2023 End: 09-02-2023 [facility] Start: 08-27-2023 End: 08-27-2023 [facility] Start: 07-29-2023 [facility] Start: 07-29-2023 [facility] Start: 07-19-2023 [facility] Start: 07-08-2023 [facility] Start: 07-01-2023 [facility] Start: 06-10-2023 [facility] Start: 06-03-2023 [facility] Start: 05-31-2023 [facility] Start: 05-26-2023 End: 05-26-2023 [facility] Start: 05-17-2023 [facility] Start: 05-06-2023 [facility] Start: 04-30-2023 [facility] Start: 04-28-2023 [facility] Start: 04-23-2023 [facility] Start: 04-19-2023 [facility] Start: 03-22-2023 [facility] Start: 03-16-2023 [facility] Start: 03-15-2023 [facility] Start: 03-11-2023 [facility] Start: 03-10-2023 [facility] Start: 02-22-2023 [facility] Start: 02-19-2023 [facility] Start: 02-12-2023 [facility] Start: 02-10-2023 [facility] Start: 02-02-2023 [facility] Start: 01-22-2023 End: 01-22-2023 [facility] Start: 12-14-2022 [facility] Start: 12-07-2022 [facility] Start: 10-23-2022 [facility] Start: 09-08-2022 [facility] Start: 09-01-2022 [facility] Start: 08-20-2022 [facility] Start: 05-20-2022 [facility] Start: 05-08-2022 [facility] Start: 05-01-2022 [facility] Start: 05-01-2022 [facility] Start: 03-18-2022 End: 03-19-2022 [facility] Start: 03-11-2022 [facility] Start: 02-27-2022 [facility] Start: 08-11-2015 Pneumococcal Vaccine: 65+ Years (2 - PPSV23 or PCV20) Pneumococcal Vaccine: 65+ Years (2 - PPSV23 or PCV20) [facility] Start: 1945 Medicare Annual Wellness (AWV) Medicare Annual Wellness (AWV) [facility] Comprehensive metabo lic 1999 panel - Serum or Plasma [facility] Work Phone: Comprehensive metabo lic 1999 panel - Serum or Plasma [facility] Comprehensive metabo lic 1999 panel - Serum or Plasma [facility] Comprehensive metabo lic 1999 panel - Serum or Plasma [facility] Comprehensive metabo lic 1999 panel - Serum or Plasma [facility] Comprehensive metabo lic 1999 panel - Serum or Plasma [facility] Comprehensive metabo lic 1999 panel - Serum or Plasma [facility] CT Abdomen and Pelvi s W contrast IV [facility] Work Phone: Ferritin [Mass/volum e] in Serum or Plasma [facility] Work Phone: Ferritin [Mass/volum e] in Serum or Plasma [facility] Ferritin [Mass/volum e] in Serum or Plasma [facility] Ferritin [Mass/volum e] in Serum or Plasma [facility] Ferritin [Mass/volum e] in Serum or Plasma [facility] Ferritin [Mass/volum e] in Serum or Plasma [facility] Ferritin [Mass/volum e] in Serum or Plasma [facility] Ferritin [Mass/volum e] in Serum or Plasma [facility] Ferritin [Mass/volum e] in Serum or Plasma [facility] Folate [Mass/volume] in Serum or Plasma [facility] Homocysteine [Moles/volume] in Serum or Plasma [facility] Homocysteine [Moles/volume] in Serum or Plasma [facility] Vitamin B12 measurement [facility] Problems Active Problems Problem Classification Problem Date Documented Da te Episodic/Chronic Abdominal pain (18 sources) Epigastric pain; Translations: [Epigastric pain] 04-23-2022 Episodic Acute bronchitis (2 sources) Acute bronchitis, unspecified Episodic Cardiac dysrhythmias (20 sources) Atrial fibrillation; Translations: [Unspecified atrial fibrillation] Onset: 1 10-31-2021 Chronic Cardiac dysrhythmias (4 sources) Palpitations; Translations: [Palpitations] Episodic Chronic kidney disease (3 sources) Chronic kidney disease, unspecified; Translations: [Chronic kidney disease stage 3] Onset: 2 01-06-2024 Chronic Chronic kidney disease (2 sources) Chronic kidney disease; Translations: [Chronic kidney disease, stage 3b] Onset: 3 Chronic obstructive pulmonary disease and bronchiectasis (20 sources) Chronic obstructive lung disease; Translations: [Chronic obstructive pulmonary disease, unspecified] Onset: 1 12-04-2021 Chronic Deficiency and other anemia (1 source) Iron deficiency anemia secondary to blood loss (chronic); Translations: [Iron deficiency anemia secondary to blood loss (chronic)] Onset: 4 Chronic Deficiency and other anemia (18 sources) Iron deficiency anemia; Translations: [Iron deficiency anemia, unspecified] Onset: 3 10-30-2021 Episodic Deficiency and other anemia (16 sources) Iron deficiency anemia, unspecified; Translations: [Iron deficiency anemia, unspecified] Onset: 2 Resolved: 2 Episodic Deficiency and other anemia (7 sources) Nutritional anemia; Translations: [Folate deficiency anemia, unspecified] 08-29-2022 Episodic Deficiency and other anemia (7 sources) Folate deficiency anemia, unspecified; Translations: [Folate-deficiency anemia] 11-27-2022 Episodic Deficiency and other anemia (2 sources) Anemia, unspecified; Translations: [Anemia, unspecified] Onset: 2 Episodic Disorders of lipid metabolism (1 source) Familial hyperchylomicronemia; 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] Onset: 8 07-28-2023 Chronic Essential hypertension (20 sources) Hypertensive disorder; Translations: [Essential (primary) hypertension] Onset: 1 10-31-2021 Chronic Other aftercare (4 sources) Drug therapy finding; Translations: [Long-term (current) use of anticoagulants] Episodic Other aftercare (3 sources) Other long-term (current) drug therapy; Translations: [OTH NUT STEAMER CURRENT DRUG THERAPY] Onset: 2 Episodic Other circulatory disease (4 sources) Ectatic coronary artery; Translations: [Other specified disorders of arteries and arterioles] Chronic Other gastrointestinal disorders (9 sources) Disorder of gastrointestinal tract; Translations: [Angiodysplasia of colon without hemorrhage] 10-30-2021 Episodic Other gastrointestinal disorders (15 sources) Angiodysplasia of colon without hemorrhage; Translations: [Angiodysplasia of intestine (without mention of hemorrhage)] Onset: 2 04-23-2022 Episodic Other gastrointestinal disorders (2 sources) Other specified symptoms and signs involving the digestive system and abdomen Episodic Other gastrointestinal disorders (1 source) Flatulence Episodic Other gastrointestinal disorders (1 source) Diarrhea, unspecified Episodic Other hematologic conditions (9 sources) High troponin I level; Translations: [Other specified abnormalities of plasma proteins] 10-30-2021 Episodic Other injuries and conditions due to external causes (4 sources) At risk for falls ; Translations: [History of fall] Episodic Other nutritional; endocrine; and metabolic disorders (1 source) Obesity; Translations: [Obesity, unspecified] Onset: 1 09-21-2023 Chronic Other nutritional; endocrine; and metabolic disorders (4 sources) Overweight in adulthood with body mass index of 25 or more but less than 30; Translations: [Body Mass Index 25.0-25.9, adult] Episodic Other nutritional; endocrine; and metabolic disorders (4 sources) Overweight; Translations: [Overweight] Episodic Other upper respiratory infections (1 source) Acute sinusitis, unspecified Episodic Pneumonia (except that caused by tuberculosis or sexually transmitted disease) (9 sources) Pneumonia; Translations: [Pneumonia, unspecified organism] 10-30-2021 Episodic Respiratory failure; insufficiency; arrest (adult) (1 source) Dependence on supplemental oxygen; Translations: [DEPENDENCE ON SUPPLEMENTAL OXYGEN] Onset: 2 Chronic Substance-related disorders (9 sources) Smoker; Translations: [Nicotine dependence, unspecified, uncomplicated] 10-30-2021 Chronic Thyroid disorders (20 sources) Hypothyroidism; Translations: [Hypothyroidism, unspecified] Onset: 8 10-31-2021 Chronic Unclassified (1 source) COUGH, UNSPECIFIED; Translations: [COUGH, UNSPECIFIED] Onset: 2 Unclassified (1 source) CONTACT W/AND (SUSP) EXPOS COVID-19; Translations: [CONTACT W/AND (SUSP) EXPOS COVID-19] Onset: 2 Unclassified (1 source) PERSONAL HISTORY OF COVID-19; Translations: [PERSONAL HISTORY OF COVID-19] Onset: 2 Past or Other Problems Problem Classification Problem Date Documented Da te Episodic/Chronic Deficiency and other anemia (1 source) Anemia; Translations: [Anemia, unspecified] Onset: 2 09-21-2023 Episodic Other aftercare (1 source) Encounter for follow-up examination after completed treatment for conditions other than malignant neoplasm; Translations: [ENC F/U EX AFTR CMPL TX NOT MAL JA] Onset: 2 Episodic Other bone disease and musculoskeletal deformities (1 source) Arrest of bone development AND/OR growth; Translations: [Other disorders of bone development and growth, unspecified site] Onset: 8 07-28-2023 Episodic Other circulatory disease (3 sources) Other specified symptoms and signs involving the circulatory and respiratory systems; Translations: [OTH SPEC SX SIGNS INVLV CIRC RS] Onset: 2 Episodic Other gastrointestinal disorders (1 source) Disease of intestine, unspecified Onset: 2 Resolved: 2 Episodic Other gastrointestinal disorders (1 source) History of gastrointestinal bleed; Translations: [Personal history of other diseases of the digestive system] Onset: 2 09-21-2023 Episodic Other gastrointestinal disorders (2 sources) Personal history of other diseases of the digestive system; Translations: [Personal history of other diseases of the digestive system] Onset: 2 Episodic Other hematologic conditions (1 source) Other specified abnormalities of plasma proteins; Translations: [OTH SPEC ABNORM PLASMA PROTEINS] Onset: 2 Episodic Other injuries and conditions due to external causes (4 sources) Unspecified injury of thorax, initial encounter; Translations: [UNSPECIFIED INJURY THORAX INITIAL] Onset: 2 Episodic Other lower respiratory disease (3 sources) Shortness of breath; Translations: [SHORTNESS OF BREATH] Onset: 2 Episodic Other lower respiratory disease (1 source) Dyspnea, unspecified; Translations: [DYSPNEA UNSPECIFIED] Onset: 2 Episodic Other lower respiratory disease (1 source) Personal history of pneumonia (recurrent); Translations: [PERSONAL HX OF PNEUMONIA RECURRENT] Onset: 2 Episodic Other lower respiratory disease (1 source) Wheezing; Translations: [WHEEZING] Onset: 2 Episodic Spondylosis; intervertebral disc disorders; other back problems (1 source) Low back pain; Translations: [Lumbago] Onset: 8 07-28-2023 Episodic Unclassified (1 source) Acute cough R05.1 Procedures Date Procedure Procedure Detail Performing Clinician Start: 04-30-2022 CT of abdomen and pe lvis without contrast DO [facility] Work Phone: Cataract surgery [facility] Work Phone: Cholecystectomy [facility] Work Phone: Colonoscopy [facility] Work Phone: Hysterectomy [facility] Work Phone: Tonsillectomy [facility] Work Phone: Results Test Name Value Interpretation Reference Range Facility Alanine aminotransferase [En zymatic activity/volume] in Serum or PlasmaOrdered By: Nusrat Gregor on 01-04-2024 ALT [Catalytic activity/Vol] 7 U/L Normal 7-52 [facility] Comment on above: Performed By: #### F E and TIBC, SHI, CBC, CMP #### [place] [address] [place] Albumin [Mass/volume] in Ser um or Plasma by Bromocresol green (BCG) dye binding methoOrdered By: Nusrat Bundy on 01-04-2024 Albumin BCG dye [Mass/Vol] 4.1 g/dL 3.5-5.7 [facility] Alkaline phosphatase [Enzyma tic activity/volume] in Serum or PlasmaOrdered By: Nusrat Bundy on 01-04-2024 ALP [Catalytic activity/Vol] 81 U/L Normal 34-104 [facility] Comment on above: Performed By: #### F E and TIBC, SHI, CBC, CMP #### [facility] [address] [place] [address] [place] Aspartate aminotransferase [ Enzymatic activity/volume] in Serum or PlasmaOrdered By: Nusrat Bundy on 01-04-2024 AST [Catalytic activity/Vol] 13 U/L Normal 13-39 [facility] Comment on above: Performed By: #### F E and TIBC, SHI, CBC, CMP #### [facility] [address] [place] [address] [place] Automated basophil %Ordered By: Nusrat Bundy on 01-04-2024 Basophils/100 WBC (Bld) 2.0 % Normal . [facility] Comment on above: Performed By: #### F E and TIBC, SHI, CBC, CMP #### [address] Automated basophil countOrde red By: Nusrat Bundy on 01-04-2024 Basophils (Bld) [#/Vol] 0.1 10*3/uL Normal 0.0-0.2 [facility] Comment on above: Result Comment: PERF ORMED BY: [place] [address] PATHOLOGIST [employer] ANDI DERAS M.D. Performed By: #### F E and TIBC, SHI, CBC, CMP #### [address] Automated blood monocyte cou ntOrdered By: Nusrat Bundy on 01-04-2024 Monocytes (Bld) [#/Vol] 0.5 10*3/uL Normal 0.0-0.8 [facility] Comment on above: Performed By: #### F E and TIBC, SHI, CBC, CMP #### [address] Automated eosinophil %Ordere d By: Nusrat Bundy on 01-04-2024 Eosinophils/100 WBC (Bld) 8.0 % Normal . [facility] Comment on above: Performed By: #### F E and TIBC, SHI, CBC, CMP #### [address] Automated eosinophil countOr dered By: Nusrat Bundy on 01-04-2024 Eosinophils (Bld) [#/Vol] 0.4 10*3/uL Normal 0.0-0.45 [facility] Comment on above: Performed By: #### F E and TIBC, SHI, CBC, CMP #### [address] Automated monocyte %Ordered By: Nusrat Bundy on 01-04-2024 Monocytes/100 WBC (Bld) 10.3 % Normal . [facility] Comment on above: Performed By: #### F E and TIBC, SHI, CBC, CMP #### [facility] [address] Automated neutrophil %Ordere d By: Nusrat Brownrolando on 01-04-2024 Neutrophils/100 WBC (Bld) 58.8 % Normal . [facility] Comment on above: Performed By: #### F E and TIBC, SHI, CBC, CMP #### [address] Bilirubin.total [Mass/volume ] in Serum or PlasmaOrdered By: Nusrat Brownrolando on 01-04-2024 Bilirubin [Mass/Vol] 0.3 mg/dL Normal 0.3-1.0 [facility] Comment on above: Performed By: #### F E and TIBC, SHI, CBC, CMP #### [address] Calcium [Mass/volume] in Ser um or PlasmaOrdered By: Nusrat Brownrolando on 01-04-2024 Calcium [Mass/Vol] 9.0 mg/dL Normal 8.6-10.3 [facility] Comment on above: Performed By: #### F E and TIBC, SHI, CBC, CMP #### [address] Carbon dioxide, total [Moles /volume] in Serum or PlasmaOrdered By: Nusrat Brownrolando on 01-04-2024 CO2 [Moles/Vol] 29.2 mmol/L Normal 21.0-31.0 [facility] Comment on above: Performed By: #### F E and TIBC, SHI, CBC, CMP #### [address] Chloride [Moles/volume] in S constance or PlasmaOrdered By: Nusrat Brownrolando on 01-04-2024 Chloride [Moles/Vol] 105 mmol/L Normal 98-107 [facility] Comment on above: Performed By: #### F E and TIBC, SHI, CBC, CMP #### [address] Complete Blood Count Auto Di ffon 01-04-2024 Mean Corpuscular HGB Conc 33.7 g/dL Normal 32.0-35.0 [facility] Comment on above: Performed By: #### F E and TIBC, SHI, CBC, CMP #### [address] NRBC% 0.1 /100{WBC} Normal 0-0.5 [facility] Comment on above: Performed By: #### F E and TIBC, SHI, CBC, CMP #### [address] Comprehensive Metabolic Pane abraham 01-04-2024 Albumin [Mass/Vol] 4.1 g/dL Normal 3.5-5.7 [facility] Comment on above: Performed By: #### F E and TIBC, SHI, CBC, CMP #### [address] Creatinine Clr Calc Pharmacy 24.22 Normal [facility] Comment on above: Performed By: #### F E and TIBC, SHI, CBC, CMP #### [address] GFR/1.73 sq M.predicted MDRD (S/P/Bld) [Vol rate/Area] 31.134 mL/min/{1.73_m2} Normal [facility] Comment on above: Performed By: #### F E and TIBC, SHI, CBC, CMP #### [address] Creatinine [Mass/volume] in Serum or PlasmaOrdered By: Nusrat Bundy on 01-04-2024 Creatinine [Mass/Vol] 1.68 mg/dL High 0.60-1.20 [facility] Comment on above: Performed By: #### F E and TIBC, SHI, CBC, CMP #### [address] Erythrocyte distribution wid th [Ratio] by Automated countOrdered By: Nusrat Bundy on 01-04-2024 Erythrocyte distribution width (RBC) [Ratio] 14.2 % Normal 11.9-15.3 [facility] Comment on above: Performed By: #### F E and TIBC, SHI, CBC, CMP #### [facility] [address] [place] [address] [place] Erythrocytes [#/volume] in B lood by Automated countOrdered By: Nusrat Brownrolando on 01-04-2024 RBC (Bld) [#/Vol] 2.93 10*6/uL Low 3.60-5.00 [facility] Comment on above: Performed By: #### F E and TIBC, SHI, CBC, CMP #### [facility] [address] [place] [address] [place] Ferritin [Mass/volume] in Se rum or PlasmaOrdered By: Nusrat Gregor on 01-04-2024 Ferritin [Mass/Vol] 313.5 ng/mL High 11.0-306.8 [facility] Comment on above: Result Comment: PERF ORMED BY: [place] [address] PATHOLOGIST [employer]OCIATE ANDI DERAS M.D. Performed By: #### F E and TIBC, SHI, CBC, CMP #### [facility] [address] [place] [address] [place] Glucose [Mass/volume] in Ser um or PlasmaOrdered By: Nusrat Gregor on 01-04-2024 Glucose [Mass/Vol] 81 mg/dL Normal 70-100 [facility] Comment on above: ADA recommended refe rence rangeRandom Glucose Reference Range is dependent on time and content of last meal. Glucose of more than 200 mg/dL in a nonstressed, ambulatory subject supports the diagnosis of Diabetes Mellitus. Result Comment: [place] Glucose Reference Range is dependent on time and content of last meal. Glucose of more than 200 mg/dL in a nonstressed, ambulatory subject supports the diagnosis of Diabetes Mellitus. ADA recommended reference range Performed By: #### F E and TIBC, SHI, CBC, CMP #### [facility] [address] [place] [address] [place] Hematocrit [Volume Fraction] of Blood by Automated countOrdered By: Nusrat Gregor on 01-04-2024 Hematocrit (Bld) [Volume fraction] 29.2 % Low 34.0-46.4 [facility] Comment on above: Performed By: #### F E and TIBC, SHI, CBC, CMP #### [address] Hemoglobin [Mass/volume] in BloodOrdered By: Nusrat Bundy on 01-04-2024 Hemoglobin (Bld) [Mass/Vol] 9.8 g/dL Low 11.8-15.4 [facility] Comment on above: Performed By: #### F E and TIBC, SHI, CBC, CMP #### [facility] [address] Iron [Mass/volume] in Serum or PlasmaOrdered By: Nusrat Bundy on 01-04-2024 Iron [Mass/Vol] 56 ug/dL Normal 50-212 [facility] Comment on above: Performed By: #### F E and TIBC, SHI, CBC, CMP #### [address] Iron and TIBC Profileon 12-21 % Iron Saturation 19.5 % Low 20-50 [facility] Comment on above: Performed By: #### F E and TIBC, SHI, CBC, CMP #### [address] Total Iron Binding Capacity 287 ug/dL Normal 255-450 [facility] Comment on above: Performed By: #### F E and TIBC, SHI, CBC, CMP #### [place] [address] [place] Iron binding capacity [Mass/ volume] in Serum or PlasmaOrdered By: Nusrat Bundy on 01-04-2024 Iron binding capacity [Mass/Vol] 287 ug/dL 255-450 [facility] Iron saturation [Mass Fracti on] in Serum or PlasmaOrdered By: Nusrat Bundy on 01-04-2024 Iron saturation [Mass fraction] 19.5 % 20-50 [facility] Leukocytes [#/volume] correc maria e for nucleated erythrocytes in Blood by Automated counOrdered By: Nusrat Bundy on 01-04-2024 WBC corrected for nucl RBC Auto (Bld) [#/Vol] 4.7 10*3/uL 3.8-11.6 [facility] Leukocytes [#/volume] in Blo od by Automated countOrdered By: Nusrat Gregor on 01-04-2024 WBC (Bld) [#/Vol] 4.7 10*3/uL Normal 3.8-11.6 [facility] Comment on above: Performed By: #### F E and TIBC, SHI, CBC, CMP #### [facility] [address] Lymphocytes [#/volume] in Bl ood by Automated countOrdered By: Nusrat Bundy on 01-04-2024 Lymphocytes (Bld) [#/Vol] 1.0 10*3/uL Normal 1.00-4.8 [facility] Comment on above: Performed By: #### F E and TIBC, SHI, CBC, CMP #### [address] Lymphocytes/100 leukocytes i n Blood by Automated countOrdered By: Nusrat Bundy on 01-04-2024 Lymphocytes/100 WBC (Bld) 20.9 % Normal . [facility] Comment on above: Performed By: #### F E and TIBC, SHI, CBC, CMP #### [address] MCH [Entitic mass] by Automa maria e countOrdered By: Nusrat Bundy on 01-04-2024 MCH (RBC) [Entitic mass] 33.6 pg Normal 24.7-34.3 [facility] Comment on above: Performed By: #### F E and TIBC, SHI, CBC, CMP #### [address] MCHC Auto (RBC) [Mass/Vol]Or dered By: Nusrat Bundy on 01-04-2024 MCHC (RBC) [Mass/Vol] 33.7 g/dL 32.0-35.0 [facility] MCV [Entitic volume] by Auto mated countOrdered By: Nusrat Bundy on 01-04-2024 MCV (RBC) [Entitic vol] 99.5 fL Normal 80-100 [facility] Comment on above: Performed By: #### F E and TIBC, SHI, CBC, CMP #### [facility] [address] Neutrophils [#/volume] in Bl ood by Automated countOrdered By: Nusrat Gregor on 01-04-2024 Neutrophils (Bld) [#/Vol] 2.7 10*3/uL Normal 1.8-7.7 [facility] Comment on above: Performed By: #### F E and TIBC, SHI, CBC, CMP #### [address] No Panel InformationOrdered By: Nusrat Gregor on 01-04-2024 Estimated GFR (CKD-EPI) 31.134 mL/Min [facility] Creatinine Clearance (Chem 24.22 [facility] Nucleated erythrocytes [Pres ence] in Blood by Automated countOrdered By: Nusrat Gregor on 01-04-2024 Nucleated RBC Auto Ql (Bld) 0.1 /100{WBC} 0-0.5 [facility] Platelet mean volume [Entiti c volume] in Blood by Automated countOrdered By: Nusrat Gregor on 01-04-2024 Platelet mean volume (Bld) [Entitic vol] 8.5 fL Normal 6.3-10.7 [facility] Comment on above: Performed By: #### F E and TIBC, SHI, CBC, CMP #### [facility] [address] Platelets [#/volume] in Bloo d by Automated countOrdered By: Nusrat Bundy on 01-04-2024 Platelets (Bld) [#/Vol] 247 10*3/uL Normal 150-450 [facility] Comment on above: Performed By: #### F E and TIBC, SHI, CBC, CMP #### [facility] [address] [place] [address] Potassium [Moles/volume] in Serum or PlasmaOrdered By: Nusrat Bundy on 01-04-2024 Potassium [Moles/Vol] 4.4 mmol/L Normal 3.5-5.1 [facility] Comment on above: Performed By: #### F E and TIBC, SHI, CBC, CMP #### [facility] [address] Protein [Mass/volume] in Ser um or PlasmaOrdered By: Nusrat Brownrolando on 01-04-2024 Protein [Mass/Vol] 6.4 g/dL Normal 6.4-8.9 [facility] Comment on above: Performed By: #### F E and TIBC, SHI, CBC, CMP #### [facility] [address] Serum globulin measurement b y calculation (mass/volume)Ordered By: Nusrat Brownrolando on 01-04-2024 Globulin (S) [Mass/Vol] 2.3 g/dL Normal [facility] Comment on above: Performed By: #### F E and TIBC, SHI, CBC, CMP #### [address] Serum or plasma albumin/glob ulin mass ratioOrdered By: Nusrat Brownrolando on 01-04-2024 Albumin/Globulin [Mass ratio] 1.8 {ratio} Normal [facility] Comment on above: Performed By: #### F E and TIBC, SHI, CBC, CMP #### [address] Serum or plasma anion gap de terminationOrdered By: Nusrat Brownrolando on 01-04-2024 Anion gap [Moles/Vol] 9.2 mmol/L Normal 6.0-15.0 [facility] Comment on above: Performed By: #### F E and TIBC, SHI, CBC, CMP #### [place] [address] [place] Sodium [Moles/volume] in Ser um or PlasmaOrdered By: Nusrat Brownrolando on 01-04-2024 Sodium [Moles/Vol] 139 mmol/L Normal 136-145 [facility] Comment on above: Performed By: #### F E and TIBC, SHI, CBC, CMP #### [facility] [address] Transferrin [Mass/volume] in Serum or PlasmaOrdered By: Nusrat Bundy on 01-04-2024 Transferrin [Mass/Vol] 205 mg/dL Normal 203-362 [facility] Comment on above: Performed By: #### F E and TIBC, SHI, CBC, CMP #### [facility] [address] Urea nitrogen [Mass/volume] in Serum or PlasmaOrdered By: Nusrat Bundy on 01-04-2024 Urea nitrogen [Mass/Vol] 39 mg/dL High 7-25 [facility] Comment on above: Performed By: #### F E and TIBC, SHI, CBC, CMP #### [facility] [address] Office Visiton 10-14-2023 Follow-up visit [id number] Terri Newton 1945 F Date Provider Department Center 10/14/2023 GIGI LIMON [facility] Family History Problem Relation Age of Onset Atrial fibrillation Brother Family Status - Relation Status Age at Brother Level of Service:00723 NE OFFICE/OUTPATIENT ESTABLISHED MOD MDM 30 MIN Normal [facility] COVID + FLU Quick Testingon 09-18-2023 SARS-CoV-2 (COVID-19) RNA TRACIE+probe Ql (Unsp spec) Negative [facility] [employer] Other COVID + FLU Quick Testing Negative [facility] [employer] Other Automated basophil %Ordered By: Bell Camargo on 09-02-2023 Basophils/100 WBC (Bld) 1.7 % Normal . [facility] Comment on above: Performed By: #### F ER, FE and TIBC, CBC #### [facility] [address] Automated basophil countOrde red By: Bell Camargo on 09-02-2023 Basophils (Bld) [#/Vol] 0.1 10*3/uL Normal 0.0-0.2 [facility] Comment on above: Result Comment: PERF ORMED BY: [place] [address] PATHOLOGIST [employer]OCIATE ANDI DERAS M.D. Performed By: #### F ER, FE and TIBC, CBC #### [address] Automated blood monocyte cou ntOrdered By: Bell Camargo on 09-02-2023 Monocytes (Bld) [#/Vol] 0.3 10*3/uL Normal 0.0-0.8 [facility] Comment on above: Performed By: #### F ER, FE and TIBC, CBC #### [address] Automated eosinophil %Ordere d By: Bell Camargo on 09-02-2023 Eosinophils/100 WBC (Bld) 7.8 % Normal . [facility] Comment on above: Performed By: #### F ER, FE and TIBC, CBC #### [address] Automated eosinophil countOr dered By: Bell Camargo on 09-02-2023 Eosinophils (Bld) [#/Vol] 0.3 10*3/uL Normal 0.0-0.45 [facility] Comment on above: Performed By: #### F ER, FE and TIBC, CBC #### [address] Automated monocyte %Ordered By: Bell Camargo on 09-02-2023 Monocytes/100 WBC (Bld) 8.0 % Normal . [facility] Comment on above: Performed By: #### F ER, FE and TIBC, CBC #### [address] Automated neutrophil %Ordere d By: Bell Camargo on 09-02-2023 Neutrophils/100 WBC (Bld) 60.6 % Normal . [facility] Comment on above: Performed By: #### F ER, FE and TIBC, CBC #### [address] Complete Blood Count Auto Di ffon 09-02-2023 Mean Corpuscular HGB Conc 34.2 g/dL Normal 32.0-35.0 [facility] Comment on above: Performed By: #### F ER, FE and TIBC, CBC #### [facility] [address] [place] [address] NRBC% 0.1 /100{WBC} Normal 0-0.5 [facility] Comment on above: Performed By: #### F ER, FE and TIBC, CBC #### [facility] [address] Erythrocyte distribution wid th [Ratio] by Automated countOrdered By: Bell Camargo on 09-02-2023 Erythrocyte distribution width (RBC) [Ratio] 15.1 % Normal 11.9-15.3 [facility] Comment on above: Performed By: #### F ER, FE and TIBC, CBC #### [address] Erythrocytes [#/volume] in B lood by Automated countOrdered By: Bell Camargo on 09-02-2023 RBC (Bld) [#/Vol] 3.02 10*6/uL Low 3.60-5.00 [facility] Comment on above: Performed By: #### F ER, FE and TIBC, CBC #### [address] Ferritin [Mass/volume] in Se rum or PlasmaOrdered By: Bell Camargo on 09-02-2023 Ferritin [Mass/Vol] 940.6 ng/mL High 11.0-306.8 [facility] Comment on above: Result Comment: PERF ORMED BY: [place] [address] PATHOLOGIST [employer]OCIATE ANDI DERAS M.D. Performed By: #### F ER, FE and TIBC, CBC #### [address] Hematocrit [Volume Fraction] of Blood by Automated countOrdered By: Bell Camargo on 09-02-2023 Hematocrit (Bld) [Volume fraction] 30.6 % Low 34.0-46.4 [facility] Comment on above: Performed By: #### F ER, FE and TIBC, CBC #### [facility] [address] Hemoglobin [Mass/volume] in BloodOrdered By: Bell Camargo on 09-02-2023 Hemoglobin (Bld) [Mass/Vol] 10.5 g/dL Low 11.8-15.4 [facility] Comment on above: Performed By: #### F ER, FE and TIBC, CBC #### [facility] [address] Iron [Mass/volume] in Serum or PlasmaOrdered By: Bell Camargo on 09-02-2023 Iron [Mass/Vol] 76 ug/dL Normal 50-212 [facility] Comment on above: Performed By: #### F ER, FE and TIBC, CBC #### [facility] [address] [place] [address] Iron and TIBC Profileon 08-23 % Iron Saturation 29.2 % Normal 20-50 [facility] Comment on above: Performed By: #### F ER, FE and TIBC, CBC #### [facility] [address] [place] [address] Total Iron Binding Capacity 260 ug/dL Normal 255-450 [facility] Comment on above: Performed By: #### F ER, FE and TIBC, CBC #### [facility] [address] [place] [address] Iron binding capacity [Mass/ volume] in Serum or PlasmaOrdered By: Bell Camargo on 09-02-2023 Iron binding capacity [Mass/Vol] 260 ug/dL 255-450 [facility] Iron saturation [Mass Fracti on] in Serum or PlasmaOrdered By: Bell Camargo on 09-02-2023 Iron saturation [Mass fraction] 29.2 % 20-50 [facility] Leukocytes [#/volume] correc maria e for nucleated erythrocytes in Blood by Automated counOrdered By: Bell Camargo on 09-02-2023 WBC corrected for nucl RBC Auto (Bld) [#/Vol] 3.5 10*3/uL 3.8-11.6 [facility] Leukocytes [#/volume] in Blo od by Automated countOrdered By: Bell Camargo on 09-02-2023 WBC (Bld) [#/Vol] 3.5 10*3/uL Low 3.8-11.6 [facility] Comment on above: Performed By: #### F ER, FE and TIBC, CBC #### [facility] [address] [place] [address] [place] Lymphocytes [#/volume] in Bl ood by Automated countOrdered By: Bell Camargo on 09-02-2023 Lymphocytes (Bld) [#/Vol] 0.8 10*3/uL Low 1.00-4.8 [facility] Comment on above: Performed By: #### F ER, FE and TIBC, CBC #### [facility] [address] [place] [address] Lymphocytes/100 leukocytes i n Blood by Automated countOrdered By: Bell Camargo on 09-02-2023 Lymphocytes/100 WBC (Bld) 21.9 % Normal . [facility] Comment on above: Performed By: #### F ER, FE and TIBC, CBC #### [facility] [address] [place] [address] MCH [Entitic mass] by Automa maria e countOrdered By: Bell Camargo on 09-02-2023 MCH (RBC) [Entitic mass] 34.6 pg High 24.7-34.3 [facility] Comment on above: Performed By: #### F ER, FE and TIBC, CBC #### [facility] [address] [place] [address] MCHC Auto (RBC) [Mass/Vol]Or dered By: Bell Camargo on 09-02-2023 MCHC (RBC) [Mass/Vol] 34.2 g/dL 32.0-35.0 [facility] MCV [Entitic volume] by Auto mated countOrdered By: Bell Camargo on 09-02-2023 MCV (RBC) [Entitic vol] 101.3 fL High 80-100 [facility] Comment on above: Performed By: #### F ER, FE and TIBC, CBC #### [address] Neutrophils [#/volume] in Bl ood by Automated countOrdered By: Bell Camargo on 09-02-2023 Neutrophils (Bld) [#/Vol] 2.1 10*3/uL Normal 1.8-7.7 [facility] Comment on above: Performed By: #### F ER, FE and TIBC, CBC #### [address] Nucleated erythrocytes [Pres ence] in Blood by Automated countOrdered By: Bell Camargo on 09-02-2023 Nucleated RBC Auto Ql (Bld) 0.1 /100{WBC} 0-0.5 [facility] Platelet mean volume [Entiti c volume] in Blood by Automated countOrdered By: Bell Camargo on 09-02-2023 Platelet mean volume (Bld) [Entitic vol] 8.0 fL Normal 6.3-10.7 [facility] Comment on above: Performed By: #### F ER, FE and TIBC, CBC #### [facility] [address] [place] [address] Platelets [#/volume] in Bloo d by Automated countOrdered By: Bell Camargo on 09-02-2023 Platelets (Bld) [#/Vol] 313 10*3/uL Normal 150-450 [facility] Comment on above: Performed By: #### F ER, FE and TIBC, CBC #### [facility] [address] [place] [address] Transferrin [Mass/volume] in Serum or PlasmaOrdered By: Bell Camargo on 09-02-2023 Transferrin [Mass/Vol] 186 mg/dL Low 203-362 [facility] Comment on above: Performed By: #### F ER, FE and TIBC, CBC #### [facility] [address] [place] [address] Complete Blood Count Auto Di ffon 07-29-2023 Basophils (Bld) [#/Vol] 0.0 10*3/uL Normal 0.0-0.2 [facility] Comment on above: Result Comment: PERF ORMED BY: [place] [address] PATHOLOGIST [employer]OCIATE ANDI DERAS M.D. Performed By: #### F ER, FE and TIBC, CBC #### [address] Basophils/100 WBC (Bld) 1.3 % Normal . [facility] Comment on above: Performed By: #### F ER, FE and TIBC, CBC #### [address] Eosinophils (Bld) [#/Vol] 0.2 10*3/uL Normal 0.0-0.45 [facility] Comment on above: Performed By: #### F ER, FE and TIBC, CBC #### [address] Eosinophils/100 WBC (Bld) 6.9 % Normal . [facility] Comment on above: Performed By: #### F ER, FE and TIBC, CBC #### [address] Erythrocyte distribution width (RBC) [Ratio] 15.2 % Normal 11.9-15.3 [facility] Comment on above: Performed By: #### F ER, FE and TIBC, CBC #### [address] Hematocrit (Bld) [Volume fraction] 31.6 % Low 34.0-46.4 [facility] Comment on above: Performed By: #### F ER, FE and TIBC, CBC #### [address] Hemoglobin (Bld) [Mass/Vol] 10.6 g/dL Low 11.8-15.4 [facility] Comment on above: Performed By: #### F ER, FE and TIBC, CBC #### [address] Lymphocytes (Bld) [#/Vol] 0.8 10*3/uL Low 1.00-4.8 [facility] Comment on above: Performed By: #### F ER, FE and TIBC, CBC #### [address] Lymphocytes/100 WBC (Bld) 24.4 % Normal . [facility] Comment on above: Performed By: #### F ER, FE and TIBC, CBC #### [address] MCH (RBC) [Entitic mass] 33.4 pg Normal 24.7-34.3 [facility] Comment on above: Performed By: #### F ER, FE and TIBC, CBC #### [address] MCV (RBC) [Entitic vol] 100.0 fL Normal 80-100 [facility] Comment on above: Performed By: #### F ER, FE and TIBC, CBC #### [address] Mean Corpuscular HGB Conc 33.4 g/dL Normal 32.0-35.0 [facility] Comment on above: Performed By: #### F ER, FE and TIBC, CBC #### [address] Monocytes (Bld) [#/Vol] 0.2 10*3/uL Normal 0.0-0.8 [facility] Comment on above: Performed By: #### F ER, FE and TIBC, CBC #### [address] Monocytes/100 WBC (Bld) 7.0 % Normal . [facility] Comment on above: Performed By: #### F ER, FE and TIBC, CBC #### [address] Neutrophils (Bld) [#/Vol] 2.1 10*3/uL Normal 1.8-7.7 [facility] Comment on above: Performed By: #### F ER, FE and TIBC, CBC #### [address] Neutrophils/100 WBC (Bld) 60.4 % Normal . [facility] Comment on above: Performed By: #### F ER, FE and TIBC, CBC #### [address] NRBC% 0.1 /100{WBC} Normal 0-0.5 [facility] Comment on above: Performed By: #### F ER, FE and TIBC, CBC #### [address] Platelet mean volume (Bld) [Entitic vol] 8.9 fL Normal 6.3-10.7 [facility] Comment on above: Performed By: #### F ER, FE and TIBC, CBC #### [address] Platelets (Bld) [#/Vol] 231 10*3/uL Normal 150-450 [facility] Comment on above: Performed By: #### F ER, FE and TIBC, CBC #### [address] RBC (Bld) [#/Vol] 3.16 10*6/uL Low 3.60-5.00 [facility] Comment on above: Performed By: #### F ER, FE and TIBC, CBC #### [address] WBC (Bld) [#/Vol] 3.5 10*3/uL Low 3.8-11.6 [facility] Comment on above: Performed By: #### F ER, FE and TIBC, CBC #### [address] Ferritinon 07-29-2023 Ferritin [Mass/Vol] 757.3 ng/mL High 11.0-306.8 [facility] Comment on above: Result Comment: PERF ORMED BY: [place] [address] PATHOLOGIST [employer] ASSOCIATE ANDI DERAS M.D. Performed By: #### F ER, FE and TIBC, CBC #### [address] Iron and TIBC Profileon 12-0 -2022 % Iron Saturation 35.7 % Normal 20-50 [facility] Comment on above: Performed By: #### F ER, FE and TIBC, CBC #### [address] Iron [Mass/Vol] 92 ug/dL Normal 50-212 [facility] Comment on above: Performed By: #### F ER, FE and TIBC, CBC #### [address] Total Iron Binding Capacity 258 ug/dL Normal 255-450 [facility] Comment on above: Performed By: #### F ER, FE and TIBC, CBC #### [address] Transferrin [Mass/Vol] 184 mg/dL Low 203-362 [facility] Comment on above: Performed By: #### F ER, FE and TIBC, CBC #### [address] Automated basophil %Ordered By: Bell Camargo on 05-26-2023 Basophils/100 WBC (Bld) 1.3 % Normal . [facility] Comment on above: Performed By: #### F ER, FE and TIBC, CBC #### [address] Automated basophil countOrde red By: Bell Camargo on 05-26-2023 Basophils (Bld) [#/Vol] 0.1 10*3/uL Normal 0.0-0.2 [facility] Comment on above: Result Comment: PERF ORMED BY: [place] [address] PATHOLOGIST [employer] ASSOCIATE ANDI DERAS M.D. Performed By: #### F ER, FE and TIBC, CBC #### [address] Automated blood monocyte cou ntOrdered By: Bell Reynoldsse on 05-26-2023 Monocytes (Bld) [#/Vol] 0.3 10*3/uL Normal 0.0-0.8 [facility] Comment on above: Performed By: #### F ER, FE and TIBC, CBC #### [address] Automated eosinophil %Ordere d By: Bell Reynoldsse on 05-26-2023 Eosinophils/100 WBC (Bld) 7.3 % Normal . [facility] Comment on above: Performed By: #### F ER, FE and TIBC, CBC #### [address] Automated eosinophil countOr dered By: Bell Raman on 05-26-2023 Eosinophils (Bld) [#/Vol] 0.3 10*3/uL Normal 0.0-0.45 [facility] Comment on above: Performed By: #### F ER, FE and TIBC, CBC #### [address] Automated monocyte %Ordered By: Bell Raamn on 05-26-2023 Monocytes/100 WBC (Bld) 7.8 % Normal . [facility] Comment on above: Performed By: #### F ER, FE and TIBC, CBC #### [address] Automated neutrophil %Ordere d By: Bell Raman on 05-26-2023 Neutrophils/100 WBC (Bld) 63.2 % Normal . [facility] Comment on above: Performed By: #### F ER, FE and TIBC, CBC #### [address] Complete Blood Count Auto Di ffon 05-26-2023 Mean Corpuscular HGB Conc 33.2 g/dL Normal 32.0-35.0 [facility] Comment on above: Performed By: #### F ER, FE and TIBC, CBC #### [place] [address] NRBC% 0.1 /100{WBC} Normal 0-0.5 [facility] Comment on above: Performed By: #### F ER, FE and TIBC, CBC #### [address] Erythrocyte distribution wid th [Ratio] by Automated countOrdered By: Bell Camargo on 05-26-2023 Erythrocyte distribution width (RBC) [Ratio] 16.8 % High 11.9-15.3 [facility] Comment on above: Performed By: #### F ER, FE and TIBC, CBC #### [address] Erythrocytes [#/volume] in B lood by Automated countOrdered By: Bell Camargo on 05-26-2023 RBC (Bld) [#/Vol] 3.16 10*6/uL Low 3.60-5.00 [facility] Comment on above: Performed By: #### F ER, FE and TIBC, CBC #### [address] Ferritin [Mass/volume] in Se rum or PlasmaOrdered By: Bell Camargo on 05-26-2023 Ferritin [Mass/Vol] 477.2 ng/mL High 11.0-306.8 [facility] Comment on above: Result Comment: PERF ORMED BY: [place] [address] PATHOLOGIST [employer]OC[employer]ATE ANDI DERAS M.D. Performed By: #### F ER, FE and TIBC, CBC #### [address] Hematocrit [Volume Fraction] of Blood by Automated countOrdered By: Bell Camargo on 05-26-2023 Hematocrit (Bld) [Volume fraction] 31.2 % Low 34.0-46.4 [facility] Comment on above: Performed By: #### F ER, FE and TIBC, CBC #### [address] Hemoglobin [Mass/volume] in BloodOrdered By: Bell Camargo on 05-26-2023 Hemoglobin (Bld) [Mass/Vol] 10.3 g/dL Low 11.8-15.4 [facility] Comment on above: Performed By: #### F ER, FE and TIBC, CBC #### [facility] [address] Iron [Mass/volume] in Serum or PlasmaOrdered By: Bell Camargo on 05-26-2023 Iron [Mass/Vol] 44 ug/dL Low 50-212 [facility] Comment on above: Performed By: #### F ER, FE and TIBC, CBC #### [facility] [address] Iron and TIBC Profileon 10-0 % Iron Saturation 17.2 % Low 20-50 [facility] Comment on above: Performed By: #### F ER, FE and TIBC, CBC #### [facility] [address] Total Iron Binding Capacity 256 ug/dL Normal 255-450 [facility] Comment on above: Performed By: #### F ER, FE and TIBC, CBC #### [facility] [address] Iron binding capacity [Mass/ volume] in Serum or PlasmaOrdered By: Bell Camargo on 05-26-2023 Iron binding capacity [Mass/Vol] 256 ug/dL 255-450 [facility] Iron saturation [Mass Fracti on] in Serum or PlasmaOrdered By: Bell Camargo on 05-26-2023 Iron saturation [Mass fraction] 17.2 % 20-50 [facility] Leukocytes [#/volume] correc maria e for nucleated erythrocytes in Blood by Automated counOrdered By: Bell Camargo on 05-26-2023 WBC corrected for nucl RBC Auto (Bld) [#/Vol] 4.0 10*3/uL 3.8-11.6 [facility] Leukocytes [#/volume] in Blo od by Automated countOrdered By: Bell Camargo on 05-26-2023 WBC (Bld) [#/Vol] 4.0 10*3/uL Normal 3.8-11.6 [facility] Comment on above: Performed By: #### F ER, FE and TIBC, CBC #### [facility] [address] Lymphocytes [#/volume] in Bl ood by Automated countOrdered By: Bell Camargo on 05-26-2023 Lymphocytes (Bld) [#/Vol] 0.8 10*3/uL Low 1.00-4.8 [facility] Comment on above: Performed By: #### F ER, FE and TIBC, CBC #### [facility] [address] Lymphocytes/100 leukocytes i n Blood by Automated countOrdered By: Bell Camargo on 05-26-2023 Lymphocytes/100 WBC (Bld) 20.4 % Normal . [facility] Comment on above: Performed By: #### F ER, FE and TIBC, CBC #### [address] MCH [Entitic mass] by Automa maria e countOrdered By: Bell Camargo on 05-26-2023 MCH (RBC) [Entitic mass] 32.7 pg Normal 24.7-34.3 [facility] Comment on above: Performed By: #### F ER, FE and TIBC, CBC #### [address] MCHC Auto (RBC) [Mass/Vol]Or dered By: Bell Camargo on 05-26-2023 MCHC (RBC) [Mass/Vol] 33.2 g/dL 32.0-35.0 [facility] MCV [Entitic volume] by Auto mated countOrdered By: Bell Camargo on 05-26-2023 MCV (RBC) [Entitic vol] 98.6 fL Normal 80-100 [facility] Comment on above: Performed By: #### F ER, FE and TIBC, CBC #### [address] Neutrophils [#/volume] in Bl ood by Automated countOrdered By: Bell Camargo on 05-26-2023 Neutrophils (Bld) [#/Vol] 2.5 10*3/uL Normal 1.8-7.7 [facility] Comment on above: Performed By: #### F ER, FE and TIBC, CBC #### [address] Nucleated erythrocytes [Pres ence] in Blood by Automated countOrdered By: Bell Camargo on 05-26-2023 Nucleated RBC Auto Ql (Bld) 0.1 /100{WBC} 0-0.5 [facility] Platelet mean volume [Entiti c volume] in Blood by Automated countOrdered By: Bell Camargo on 05-26-2023 Platelet mean volume (Bld) [Entitic vol] 8.3 fL Normal 6.3-10.7 [facility] Comment on above: Performed By: #### F ER, FE and TIBC, CBC #### [address] Platelets [#/volume] in Bloo d by Automated countOrdered By: Bell Camargo on 05-26-2023 Platelets (Bld) [#/Vol] 245 10*3/uL Normal 150-450 [facility] Comment on above: Performed By: #### F ER, FE and TIBC, CBC #### [address] Transferrin [Mass/volume] in Serum or PlasmaOrdered By: Bell Camargo on 05-26-2023 Transferrin [Mass/Vol] 183 mg/dL Low 203-362 [facility] Comment on above: Performed By: #### F ER, FE and TIBC, CBC #### [facility] [address] [place] [address] Ferritinon 04-19-2023 Ferritin [Mass/Vol] 202.2 ng/mL Normal 11.0-306.8 [facility] Comment on above: Result Comment: PERF ORMED BY: [place] [address] PATHOLOGIST [employer] ASSOCIATE ANDI DERAS M.D. Performed By: #### F ER, FE and TIBC #### [facility] [address] [id number] [facility] Iron and TIBC Profileon 03-24 % Iron Saturation 18.7 % Low 20-50 [facility] Comment on above: Performed By: #### F ER, FE and TIBC #### [facility] [address] [id number] [facility] Iron [Mass/Vol] 53 ug/dL Normal 50-212 [facility] Comment on above: Performed By: #### F ER, FE and TIBC #### [facility] [address] Total Iron Binding Capacity 283 ug/dL Normal 255-450 [facility] Comment on above: Performed By: #### F ER, FE and TIBC #### [facility] [address] Transferrin [Mass/Vol] 202 mg/dL Low 203-362 [facility] Comment on above: Performed By: #### F ER, FE and TIBC #### [facility] [address] Office Visiton 03-30-2023 Follow-up visit [id number] Terri Newton 1945 F Date Provider Department [place] 03/30/2023 NINFA ATKINSON [facility] Family History Problem Relation Age of Onset Atrial fibrillation Brother Family Status - Relation Status Age at Brother Level of Service:14913 NE OFFICE/OUTPATIENT ESTABLISHED LOW MDM 20-29 MIN Normal [facility] CBC AUTO DIFFon 11-24-2022 BASO # 0.1 103/ul Normal 0.0-0.1 [facility] Comment on above: Performed By: #### C BC #### [facility] [address] [place] [address] Dr. Albert Briscoe Basophils/100 WBC (Bld) 1.0 % Normal 0.2-2.0 [facility] Comment on above: Performed By: #### C BC #### [facility] [address] [address] [address] Albert Briscoe EO # 0.3 103/ul Normal 0.0-0.7 [facility] Comment on above: Performed By: #### C BC #### [facility] [address] [place] [address] Dr. Albert Briscoe Eosinophils/100 WBC (Bld) 6.9 % Normal 0.9-7.0 [facility] Comment on above: Performed By: #### C BC #### [facility] [address] [place] [address] Dr. Albert Briscoe Erythrocyte distribution width (RBC) [Ratio] 14.8 % Normal 11.0-15.0 [facility] Comment on above: Performed By: #### C BC #### [facility] [address] [place] [address] Dr. Albert Briscoe Hematocrit (Bld) [Volume fraction] 23.7 % Critically low 36.0-48.0 [facility] Comment on above: Performed By: #### C BC #### [facility] [address] [place] [address] Dr. Albert Briscoe Hemoglobin (Bld) [Mass/Vol] 7.3 g/dL Critically low 12.0-16.0 [facility] Comment on above: Performed By: #### C BC #### [facility] [address] [place] [address] Dr. Albert Briscoe IG # 0.02 10e3/ul Normal 0.00-0.03 [facility] Comment on above: Performed By: #### C BC #### [facility] [address] [place] [address] Dr. Albert Briscoe IG % 0.4 % Normal 0.0-0.5 [facility] Comment on above: Performed By: #### C BC #### [facility] [address] [place] [address] Dr. Albert Briscoe LYMPH # 1.2 103/ul Normal 1.2-3.8 [facility] Comment on above: Performed By: #### C BC #### [facility] [address] [place] [address] Dr. Albert Briscoe Lymphocytes/100 WBC (Bld) 25.1 % Normal 20.5-60.0 [facility] Comment on above: Performed By: #### C BC #### [facility] [address] [place] [address] Dr. Albert Briscoe MANUAL DIFF REQ NO Normal [facility] Comment on above: Performed By: #### C BC #### [facility] [address] [place] [address] Dr. Albert Briscoe MCH (RBC) [Entitic mass] 30.4 pg Normal 26.7-34.0 [facility] Comment on above: Performed By: #### C BC #### [facility] [address] [place] [address] Dr. Albert Briscoe MCHC (RBC) [Mass/Vol] 30.8 g/dL Normal 29.9-35.2 [facility] Comment on above: Performed By: #### C BC #### [facility] [address] [place] [address] Dr. Albert Briscoe MCV (RBC) [Entitic vol] 98.8 fL Normal 81.0-99.0 [facility] Comment on above: Performed By: #### C BC #### [facility] [address] [place] [address] Dr. Albert Briscoe MONO # 0.4 103/ul Normal 0.3-0.8 [facility] Comment on above: Performed By: #### C BC #### [facility] [address] [place] [address] Dr. Albert Briscoe Monocytes/100 WBC (Bld) 8.1 % Normal 1.7-12.0 [facility] Comment on above: Performed By: #### C BC #### [facility] [address] [place] [address] Dr. Albert Briscoe NEUT # 2.8 103/ul Normal 1.4-6.5 [facility] Comment on above: Performed By: #### C BC #### [facility] [address] [place] [address] Dr. Albert Briscoe Neutrophils/100 WBC (Bld) 58.5 % Normal 43.0-75.0 [facility] Comment on above: Performed By: #### C BC #### [facility] [address] [place] [address] Dr. Albert Briscoe Platelet mean volume (Bld) [Entitic vol] 9.1 fL Critically low 9.5-13.5 [facility] Comment on above: Performed By: #### C BC #### [facility] [address] [place] [address] Dr. Albert Briscoe PLT 315 103/ul Normal 150-450 [facility] Comment on above: Performed By: #### C BC #### [facility] [address] [place] [address] Dr. Albert Briscoe RBC 2.40 106/ul Critically low 4.20-5.40 [facility] Comment on above: Performed By: #### C BC #### [facility] [address] [place] [address] Dr. Albert Briscoe WBC 4.8 103/ul Normal 4.0-11.0 [facility] Comment on above: Performed By: #### C BC #### [facility] [address] [place] [address] Dr. Albert Briscoe FERRITINon 11-24-2022 Ferritin [Mass/Vol] 53.0 ng/mL Normal 8.0-252.0 [facility] Comment on above: Performed By: #### B 12FOL, FETIBC, FERR #### [facility] [address] [place] [address] Dr. Albert Briscoe IRON AND TIBCon 11-24-2022 % SATURATION 10.6 % Normal [facility] Comment on above: Performed By: #### B 12FOL, FETIBC, FERR #### [facility] [address] [place] [address] Dr. Albert Briscoe Iron [Mass/Vol] 34.0 ug/dL Critically low 50.0-170.0 [facility] Comment on above: Performed By: #### B 12FOL, FETIBC, FERR #### [facility] [address] [place] [address] Dr. Albert Briscoe TIBC DIRECT 322.0 ug/dL Normal 250.0-450.0 [facility] Comment on above: Performed By: #### B 12FOL, FETIBC, FERR #### [facility] [address] [address] [address] Albert Briscoe PROF 14(COMP METB)on 023 Albumin [Mass/Vol] 3.6 g/dL Normal 3.4-5.0 [facility] Comment on above: Performed By: #### B 12FOL, FETIBC, FERR #### [facility] [address] [place] [address] Dr. Albert Briscoe Albumin/Globulin [Mass ratio] 1.0 {ratio} Normal [facility] Comment on above: Performed By: #### B 12FOL, FETIBC, FERR #### [facility] [address] [place] [address] Dr. Albert Briscoe ALP [Catalytic activity/Vol] 104 U/L Normal 46-116 [facility] Comment on above: Performed By: #### B 12FOL, FETIBC, FERR #### [facility] [address] [address] [address] Albert Briscoe ALT [Catalytic activity/Vol] 16 U/L Normal 14-59 [facility] Comment on above: Performed By: #### B 12FOL, FETIBC, FERR #### [facility] [address] [address] [address] Albert Briscoe Anion gap [Moles/Vol] 12.0 mmol/L Normal [facility] Comment on above: Performed By: #### B 12FOL, FETIBC, FERR #### [facility] [address] [address] [address] Albert Briscoe AST [Catalytic activity/Vol] 11 U/L Critically low 15-37 [facility] Comment on above: Performed By: #### B 12FOL, FETIBC, FERR #### [facility] [address] [address] [address] Albert Briscoe Bilirubin [Mass/Vol] 0.2 mg/dL Normal 0.2-1.0 [facility] Comment on above: Performed By: #### B 12FOL, FETIBC, FERR #### [facility] [address] [place] [address] Dr. Albert Briscoe Calcium [Mass/Vol] 8.8 mg/dL Normal 8.5-10.1 [facility] Comment on above: Performed By: #### B 12FOL, FETIBC, FERR #### [facility] [address] [place] [address] Dr. Albert Briscoe Chloride [Moles/Vol] 103 mmol/L Normal 98-107 [facility] Comment on above: Performed By: #### B 12FOL, FETIBC, FERR #### [facility] [address] [place] [address] Dr. Albert Briscoe CO2 [Moles/Vol] 29.0 mmol/L Normal 21.0-32.0 [facility] Comment on above: Performed By: #### B 12FOL, FETIBC, FERR #### [facility] [address] [place] [address] Dr. Albert Briscoe Creatinine [Mass/Vol] 1.71 mg/dL Critically high 0.55-1.02 [facility] Comment on above: Performed By: #### B 12FOL, FETIBC, FERR #### [facility] [address] [place] [address] Dr. Albert Briscoe EGFR-AF [place] 35 mL/min/1.73m2 Critically low >=60 [facility] Comment on above: Performed By: #### B 12FOL, FETIBC, FERR #### [facility] [address] [place] [address] Dr. Albert Briscoe EGFR-NON AF [place] 29 mL/min/1.73m2 Critically low >=60 [facility] Comment on above: Performed By: #### B 12FOL, FETIBC, FERR #### [facility] [address] [place] [address] Dr. Albert Briscoe Globulin (S) [Mass/Vol] 3.7 g/dL Normal [facility] Comment on above: Performed By: #### B 12FOL, FETIBC, FERR #### [facility] [address] [place] [address] Dr. Albert Briscoe Glucose [Mass/Vol] 108 mg/dL Critically high 74-106 [facility] Comment on above: Performed By: #### B 12FOL, FETIBC, FERR #### [facility] [address] [place] [address] Dr. Albert Briscoe Potassium [Moles/Vol] 4.0 mmol/L Normal 3.5-5.1 [facility] Comment on above: Performed By: #### B 12FOL, FETIBC, FERR #### [facility] [address] [place] [address] Dr. Albert Briscoe Protein [Mass/Vol] 7.3 g/dL Normal 6.4-8.2 [facility] Comment on above: Performed By: #### B 12FOL, FETIBC, FERR #### [facility] [address] [place] [address] Dr. Albert Briscoe Sodium [Moles/Vol] 140 mmol/L Normal 136-145 [facility] Comment on above: Performed By: #### B 12FOL, FETIBC, FERR #### [facility] [address] [place] [address] Dr. Albert Briscoe Urea nitrogen [Mass/Vol] 32.0 mg/dL Critically high 7.0-18.0 [facility] Comment on above: Performed By: #### B 12FOL, FETIBC, FERR #### [facility] [address] [place] [address] Dr. Albert Briscoe Urea nitrogen/Creatinine [Mass ratio] 18.7 mg/mg Normal [facility] Comment on above: Performed By: #### B 12FOL, FETIBC, FERR #### [facility] [address] [place] [address] Dr. Albert Briscoe CBC AUTO DIFFon 09-25-2022 BASO # 0.1 103/ul Normal 0.0-0.1 [facility] Comment on above: Performed By: #### C BC #### [facility] [address] [address] [address] Albert Briscoe Basophils/100 WBC (Bld) 1.1 % Normal 0.2-2.0 [facility] Comment on above: Performed By: #### C BC #### [facility] [address] [address] [address] Albert Briscoe EO # 0.2 103/ul Normal 0.0-0.7 [facility] Comment on above: Performed By: #### C BC #### [facility] [address] [address] [address] Albert Briscoe Eosinophils/100 WBC (Bld) 4.7 % Normal 0.9-7.0 [facility] Comment on above: Performed By: #### C BC #### [facility] [address] [address] [address] Albert Briscoe Erythrocyte distribution width (RBC) [Ratio] 16.5 % Critically high 11.0-15.0 [facility] Comment on above: Performed By: #### C BC #### [facility] [address] [address] [address] Albert Briscoe Hematocrit (Bld) [Volume fraction] 33.7 % Critically low 36.0-48.0 [facility] Comment on above: Performed By: #### C BC #### [facility] [address] [address] [address] Albert Briscoe Hemoglobin (Bld) [Mass/Vol] 10.1 g/dL Critically low 12.0-16.0 [facility] Comment on above: Performed By: #### C BC #### [facility] [address] [address] [address] Albert Briscoe IG # 0.05 10e3/ul Critically high 0.00-0.03 [facility] Comment on above: Performed By: #### C BC #### [facility] [address] [address] [address] Albert Briscoe IG % 1.1 % Critically high 0.0-0.5 [facility] Comment on above: Performed By: #### C BC #### [facility] [address] [place] [address] Dr. Albert Briscoe LYMPH # 1.4 103/ul Normal 1.2-3.8 [facility] Comment on above: Performed By: #### C BC #### [facility] [address] [place] [address] Dr. Albert Briscoe Lymphocytes/100 WBC (Bld) 29.7 % Normal 20.5-60.0 [facility] Comment on above: Performed By: #### C BC #### [facility] [address] [place] [address] Dr. Albert Briscoe MANUAL DIFF REQ NO Normal [facility] Comment on above: Performed By: #### C BC #### [facility] [address] [place] [address] Dr. Albert Briscoe MCH (RBC) [Entitic mass] 31.2 pg Normal 26.7-34.0 [facility] Comment on above: Performed By: #### C BC #### [facility] [address] [place] [address] Dr. Albert Briscoe MCHC (RBC) [Mass/Vol] 30.0 g/dL Normal 29.9-35.2 [facility] Comment on above: Performed By: #### C BC #### [facility] [address] [place] [address] Dr. Albert Briscoe MCV (RBC) [Entitic vol] 104.0 fL Critically high 81.0-99 .0 [facility] Comment on above: Performed By: #### C BC #### [facility] [address] [place] [address] Dr. Albert Briscoe MONO # 0.4 103/ul Normal 0.3-0.8 [facility] Comment on above: Performed By: #### C BC #### [facility] [address] [place] [address] Dr. Albert Briscoe Monocytes/100 WBC (Bld) 8.1 % Normal 1.7-12.0 [facility] Comment on above: Performed By: #### C BC #### [facility] [address] [address] [address] Albert Briscoe NEUT # 2.6 103/ul Normal 1.4-6.5 [facility] Comment on above: Performed By: #### C BC #### [facility] [address] [address] [address] Albert Briscoe Neutrophils/100 WBC (Bld) 55.3 % Normal 43.0-75.0 [facility] Comment on above: Performed By: #### C BC #### [facility] [address] [place] [address] Dr. Albert Briscoe Platelet mean volume (Bld) [Entitic vol] 10.9 fL Normal 9.5-13.5 [facility] Comment on above: Performed By: #### C BC #### [facility] [address] [place] [address] Dr. Albert Briscoe PLT 276 103/ul Normal 150-450 [facility] Comment on above: Performed By: #### C BC #### [facility] [address] [place] [address] Dr. Albert Briscoe RBC 3.24 106/ul Critically low 4.20-5.40 [facility] Comment on above: Performed By: #### C BC #### [facility] [address] [place] [address] Dr. Albert Briscoe WBC 4.7 103/ul Normal 4.0-11.0 [facility] Comment on above: Performed By: #### C BC #### [facility] [address] [place] [address] Dr. Albert Briscoe IRON AND TIBCon 09-25-2022 % SATURATION 15.5 % Normal [facility] Comment on above: Performed By: #### C BC #### [facility] [address] [place] [address] Dr. Albert Briscoe Iron [Mass/Vol] 49.0 ug/dL Critically low 50.0-170.0 [facility] Comment on above: Performed By: #### C BC #### [facility] [id number] Albert Briscoe TIBC DIRECT 316.0 ug/dL Normal 250.0-450.0 [facility] Comment on above: Performed By: #### C BC #### [facility] [address] [place], [place] [id number] Dr. Albert Briscoe METHYLMALONIC ACID (MMA)on 0 08-30-2022 Methylmalonic Acid, Serum 246 nmol/L Normal 0-378 [facility] Comment on above: Performed By: #### C BC #### [facility] [address] [place] [address] Dr. Albert Briscoe CBC AUTO DIFFon 08-25-2022 BASO # 0.0 103/ul Normal 0.0-0.1 [facility] Comment on above: Performed By: #### C BC #### [facility] [address] [place] [address] Dr. Albert Briscoe Basophils/100 WBC (Bld) 0.6 % Normal 0.2-2.0 [facility] Comment on above: Performed By: #### C BC #### [facility] [address] [place] [address] Dr. Albert Briscoe EO # 0.2 103/ul Normal 0.0-0.7 [facility] Comment on above: Performed By: #### C BC #### [facility] [address] [place] [address] Dr. Albert Briscoe Eosinophils/100 WBC (Bld) 3.3 % Normal 0.9-7.0 [facility] Comment on above: Performed By: #### C BC #### [facility] [address] [place] [address] Dr. Albert Briscoe Erythrocyte distribution width (RBC) [Ratio] 13.7 % Normal 11.0-15.0 [facility] Comment on above: Performed By: #### C BC #### [facility] [address] [place] [address] Dr. Albert Briscoe Hematocrit (Bld) [Volume fraction] 27.3 % Critically low 36.0-48.0 [facility] Comment on above: Performed By: #### C BC #### [facility] [address] [address] [address] Albert Briscoe Hemoglobin (Bld) [Mass/Vol] 8.9 g/dL Critically low 12.0-16.0 [facility] Comment on above: Performed By: #### C BC #### [facility] [address] [address] [address] Albert Briscoe IG # 0.15 10e3/ul Critically high 0.00-0.03 [facility] Comment on above: Performed By: #### C BC #### [facility] [address] [address] [address] Albert Briscoe IG % 2.3 % Critically high 0.0-0.5 [facility] Comment on above: Performed By: #### C BC #### [facility] [address] [place] [address] Dr. Albert Briscoe LYMPH # 1.2 103/ul Normal 1.2-3.8 [facility] Comment on above: Performed By: #### C BC #### [facility] [address] [place] [address] Dr. Albert Briscoe Lymphocytes/100 WBC (Bld) 18.2 % Critically low 20.5-60.0 [facility] Comment on above: Performed By: #### C BC #### [facility] [address] [place] [address] Dr. Albert Briscoe MANUAL DIFF REQ NO Normal [facility] Comment on above: Performed By: #### C BC #### [facility] [address] [place] [address] Dr. Albert Briscoe MCH (RBC) [Entitic mass] 31.2 pg Normal 26.7-34.0 [facility] Comment on above: Performed By: #### C BC #### [facility] [address] [place] [address] Dr. Albert Briscoe MCHC (RBC) [Mass/Vol] 32.6 g/dL Normal 29.9-35.2 [facility] Comment on above: Performed By: #### C BC #### [facility] [address] [address] [address] Albert Briscoe MCV (RBC) [Entitic vol] 95.8 fL Normal 81.0-99.0 [facility] Comment on above: Performed By: #### C BC #### [facility] [address] [address] [address] Albert Briscoe MONO # 0.8 103/ul Normal 0.3-0.8 [facility] Comment on above: Performed By: #### C BC #### [facility] [address] [address] [address] Albert Briscoe Monocytes/100 WBC (Bld) 12.5 % Critically high 1.7-12. 0 [facility] Comment on above: Performed By: #### C BC #### [facility] [address] [place] [address] Dr. Albert Briscoe NEUT # 4.0 103/ul Normal 1.4-6.5 [facility] Comment on above: Performed By: #### C BC #### [facility] [address] [place] [address] Dr. Albert Briscoe Neutrophils/100 WBC (Bld) 63.1 % Normal 43.0-75.0 [facility] Comment on above: Performed By: #### C BC #### [facility] [address] [address] [address] Albert Briscoe Platelet mean volume (Bld) [Entitic vol] 11.0 fL Normal 9.5-13.5 [facility] Comment on above: Performed By: #### C BC #### [facility] [address] [address] [address] Albert Briscoe PLT 223 103/ul Normal 150-450 [facility] Comment on above: Performed By: #### C BC #### [facility] [address] [address] [address] Albert Briscoe RBC 2.85 106/ul Critically low 4.20-5.40 [facility] Comment on above: Performed By: #### C BC #### [facility] [address] [place] [address] Dr. Albert Briscoe WBC 6.4 103/ul Normal 4.0-11.0 [facility] Comment on above: Performed By: #### C BC #### [facility] [address] [place] [address] Dr. Albert Briscoe FERRITINon 08-25-2022 Ferritin [Mass/Vol] 114.0 ng/mL Normal 8.0-252.0 [facility] Comment on above: Performed By: #### F ETIBC, FERR #### [facility] [address] [place] [address] Dr. Albert Briscoe IRON AND TIBCon 08-25-2022 % SATURATION 8.6 % Normal [facility] Comment on above: Performed By: #### F ETIBC, FERR #### [facility] [address] [place] [address] Dr. Albert Briscoe Iron [Mass/Vol] 24.0 ug/dL Critically low 50.0-170.0 [facility] Comment on above: Performed By: #### F ETIBC, FERR #### [facility] [address] [place] [address] Dr. Albert Briscoe TIBC DIRECT 278.0 ug/dL Normal 250.0-450.0 [facility] Comment on above: Performed By: #### F ETIBC, FERR #### [facility] [address] [place] [address] Dr. Albert Briscoe BNPon 08-19-2022 Natriuretic peptide B (Bld) [Mass/Vol] 753.0 pg/mL Normal <=1,800.0 [facility] Comment on above: Performed By: #### C BC #### [facility] [address] [place] [address] Dr. Albert Briscoe CBC AUTO DIFFon 08-19-2022 BASO # 0.1 103/ul Normal 0.0-0.1 [facility] Comment on above: Performed By: #### B 12FOL, FETIBC, FERR #### [facility] [address] [place] [address] Dr. Albert Briscoe Basophils/100 WBC (Bld) 0.9 % Normal 0.2-2.0 [facility] Comment on above: Performed By: #### B 12FOL, FETIBC, FERR #### [facility] [address] [place] [address] Dr. Albert Briscoe EO # 0.1 103/ul Normal 0.0-0.7 [facility] Comment on above: Performed By: #### B 12FOL, FETIBC, FERR #### [facility] [address] [place] [address] Dr. Albert Briscoe Eosinophils/100 WBC (Bld) 2.1 % Normal 0.9-7.0 [facility] Comment on above: Performed By: #### B 12FOL, FETIBC, FERR #### [facility] [address] [place] [address] Dr. Albert Briscoe Erythrocyte distribution width (RBC) [Ratio] 14.0 % Normal 11.0-15.0 [facility] Comment on above: Performed By: #### B 12FOL, FETIBC, FERR #### [facility] [address] [place] [address] Dr. Albert Briscoe Hematocrit (Bld) [Volume fraction] 32.1 % Critically low 36.0-48.0 [facility] Comment on above: Performed By: #### B 12FOL, FETIBC, FERR #### [facility] [address] [place] [address] Dr. Albert Briscoe Hemoglobin (Bld) [Mass/Vol] 10.3 g/dL Critically low 12.0-16.0 [facility] Comment on above: Performed By: #### B 12FOL, FETIBC, FERR #### [facility] [address] [place] [address] Dr. Albert Briscoe IG # 0.22 10e3/ul Critically high 0.00-0.03 [facility] Comment on above: Performed By: #### B 12FOL, FETIBC, FERR #### [facility] [address] [place] [address] Dr. Albert Briscoe IG % 4.1 % Critically high 0.0-0.5 [facility] Comment on above: Performed By: #### B 12FOL, FETIBC, FERR #### [facility] [address] [place] [address] Dr. Albert Briscoe LYMPH # 0.9 103/ul Critically low 1.2-3.8 [facility] Comment on above: Performed By: #### B 12FOL, FETIBC, FERR #### [facility] [address] [place] [address] Dr. Albert Briscoe Lymphocytes/100 WBC (Bld) 17.4 % Critically low 20.5-60.0 [facility] Comment on above: Performed By: #### B 12FOL, FETIBC, FERR #### [facility] [address] [place] [address] Dr. Albert Briscoe MANUAL DIFF REQ NO Normal [facility] Comment on above: Performed By: #### B 12FOL, FETIBC, FERR #### [facility] [address] [place] [address] Dr. Albert Briscoe MCH (RBC) [Entitic mass] 30.7 pg Normal 26.7-34.0 [facility] Comment on above: Performed By: #### B 12FOL, FETIBC, FERR #### [facility] [address] [place] [address] Dr. Albert Briscoe MCHC (RBC) [Mass/Vol] 32.1 g/dL Normal 29.9-35.2 [facility] Comment on above: Performed By: #### B 12FOL, FETIBC, FERR #### [facility] [address] [place] [address] Dr. Albert Briscoe MCV (RBC) [Entitic vol] 95.5 fL Normal 81.0-99.0 [facility] Comment on above: Performed By: #### B 12FOL, FETIBC, FERR #### [facility] [address] [place] [address] Dr. Albert Briscoe MONO # 0.5 103/ul Normal 0.3-0.8 [facility] Comment on above: Performed By: #### B 12FOL, FETIBC, FERR #### [facility] [address] [place] [address] Dr. Albert Briscoe Monocytes/100 WBC (Bld) 9.4 % Normal 1.7-12.0 [facility] Comment on above: Performed By: #### B 12FOL, FETIBC, FERR #### [facility] [address] [place] [address] Dr. Albert Briscoe NEUT # 3.5 103/ul Normal 1.4-6.5 [facility] Comment on above: Performed By: #### B 12FOL, FETIBC, FERR #### [facility] [address] [place] [address] Dr. Albert Briscoe Neutrophils/100 WBC (Bld) 66.1 % Normal 43.0-75.0 [facility] Comment on above: Performed By: #### B 12FOL, FETIBC, FERR #### [facility] [address] [place] [address] Dr. Albert Briscoe Platelet mean volume (Bld) [Entitic vol] 9.6 fL Normal 9.5-13.5 [facility] Comment on above: Performed By: #### B 12FOL, FETIBC, FERR #### [facility] [address] [place] [address] Dr. Albert Briscoe PLT 247 103/ul Normal 150-450 [facility] Comment on above: Performed By: #### B 12FOL, FETIBC, FERR #### [facility] [address] [place] [address] Dr. Albert Briscoe RBC 3.36 106/ul Critically low 4.20-5.40 [facility] Comment on above: Performed By: #### B 12FOL, FETIBC, FERR #### [facility] [address] [place] [address] Dr. Albert Briscoe WBC 5.3 103/ul Normal 4.0-11.0 [facility] Comment on above: Performed By: #### B 12FOL, FETIBC, FERR #### [facility] [address] [address] [address] Albert Briscoe Covid-19 PCR ([facility])on 07-24 SARS-CoV-2 (COVID-19) RNA TRACIE+probe Ql (Unsp spec) Not detected Normal NOT DETECTED [facility] Comment on above: Result Comment: This test is not yet approved or cleared by the [place] FDA. When there are no FDA-approved or cleared tests available, and other criteria are met, FDA can make tests available under an emergency access mechanism called an Emergency Use Authorization (EUA). The EUA for this test is supported by the [employer] Supervisor of Health and Human Service's (HHS's) declaration that circumstances exist to justify the emergency use of in vitro diagnostics for the detection and/or diagnosis of the virus that causes COVID-19. This EUA will remain in effect (meaning this test can be used) for the duration of the COVID-19 declaration justifying emergency of IVDs, unless it is terminated or revoked by FDA (after which the test may no longer be used). When diagnostic testing is negative, the possibility of a false negative should be considered in the context of a patient's recent exposures and the presence of clinical signs and symptoms consistent with SARS-CoV-2. Performed By: #### B 12FOL, FETIBC, FERR #### [facility] [address] [place] [address] Dr. Albert Briscoe INFLUENZA A AND B AGon 08-[facility] SEE BELOW Normal [facility] Comment on above: Result Comment: Nega tive for Flu A protein angiten. Infection due to Flu A cannot be ruled out. Flu A angiten in the sample may be below the detection limit of the test. Performed By: #### B 12FOL, FETIBC, FERR #### [facility] [address] [address] [address] Albert Briscoe INFLUBNEG SEE BELOW Normal [facility] Comment on above: Result Comment: Nega tive for Flu B protein antigen. Infection due to Flu B cannot be ruled out. Flu B antigen in the sample may be below the detection limit of the test. Performed By: #### B 12FOL, FETIBC, FERR #### [facility] [address] [place] [address] Dr. Albert Briscoe INFLUENZA A AG Negative Normal NEGATIVE SEE COMMENT [facility] Comment on above: Performed By: #### B 12FOL, FETIBC, FERR #### [facility] [address] [place] [address] Dr. Albert Briscoe INFLUENZA B AG Negative Normal NEGATIVE SEE COMMENT [facility] Comment on above: Performed By: #### B 12FOL, FETIBC, FERR #### [facility] [address] [place] [address] Dr. Albert Briscoe PROF 14(COMP METB)on 022 Albumin [Mass/Vol] 3.5 g/dL Normal 3.4-5.0 [facility] Comment on above: Performed By: #### C BC #### [facility] [address] [place] [address] Dr. Albert Briscoe Albumin/Globulin [Mass ratio] 0.9 {ratio} Normal [facility] Comment on above: Performed By: #### C BC #### [facility] [address] [place] [address] Dr. Albert Briscoe ALP [Catalytic activity/Vol] 106 U/L Normal 46-116 [facility] Comment on above: Performed By: #### C BC #### [facility] [address] [place] [address] Dr. Albert Briscoe ALT [Catalytic activity/Vol] 12 U/L Critically low 14-59 [facility] Comment on above: Performed By: #### C BC #### [facility] [address] [place] [address] Dr. Albert Briscoe Anion gap [Moles/Vol] 12.1 mmol/L Normal [facility] Comment on above: Performed By: #### C BC #### [facility] [address] [place] [address] Dr. Albert Briscoe AST [Catalytic activity/Vol] 14 U/L Critically low 15-37 [facility] Comment on above: Performed By: #### C BC #### [facility] [address] [address] [address] Albert Briscoe Bilirubin [Mass/Vol] 0.2 mg/dL Normal 0.2-1.0 [facility] Comment on above: Performed By: #### C BC #### [facility] [address] [address] [address] Albert Briscoe Calcium [Mass/Vol] 8.6 mg/dL Normal 8.5-10.1 [facility] Comment on above: Performed By: #### C BC #### [facility] [address] [address] [address] Albert Briscoe Chloride [Moles/Vol] 96 mmol/L Critically low 98-107 [facility] Comment on above: Performed By: #### C BC #### [facility] [address] [address] [address] Albert Briscoe CO2 [Moles/Vol] 30.9 mmol/L Normal 21.0-32.0 [facility] Comment on above: Performed By: #### C BC #### [facility] [address] [address] [address] Albert Briscoe Creatinine [Mass/Vol] 1.68 mg/dL Critically high 0.55-1.02 [facility] Comment on above: Performed By: #### C BC #### [facility] [address] [address] [address] Albert Briscoe EGFR-AF [place] 36 mL/min/1.73m2 Critically low >=60 [facility] Comment on above: Performed By: #### C BC #### [facility] [address] [address] [address] Albert Briscoe EGFR-NON AF [place] 30 mL/min/1.73m2 Critically low >=60 [facility] Comment on above: Performed By: #### C BC #### [facility] [address] [address] [address] Albert Briscoe Globulin (S) [Mass/Vol] 3.7 g/dL Normal [facility] Comment on above: Performed By: #### C BC #### [facility] [address] [address] [address] Albert Briscoe Glucose [Mass/Vol] 109 mg/dL Critically high 74-106 [facility] Comment on above: Performed By: #### C BC #### [facility] [address] [address] [address] Albert Briscoe Potassium [Moles/Vol] 4.0 mmol/L Normal 3.5-5.1 [facility] Comment on above: Performed By: #### C BC #### [facility] [address] [address] [address] Albert Briscoe Protein [Mass/Vol] 7.2 g/dL Normal 6.4-8.2 [facility] Comment on above: Performed By: #### C BC #### [facility] [address] [address] [address] Albert Briscoe Sodium [Moles/Vol] 135 mmol/L Critically low 136-145 [facility] Comment on above: Performed By: #### C BC #### [facility] [address] [address] [address] Albert Briscoe Urea nitrogen [Mass/Vol] 52.0 mg/dL Critically high 7.0-18.0 [facility] Comment on above: Performed By: #### C BC #### [facility] [address] [address] [address] Albert Briscoe Urea nitrogen/Creatinine [Mass ratio] 31.0 mg/mg Normal [facility] Comment on above: Performed By: #### C BC #### [facility] [address] [address] [address] Albert Briscoe PROTIMEon 08-19-2022 INR Coag (PPP) [Relative time] 0.98 {INR} Normal [facility] Comment on above: Performed By: #### B 12FOL, FETIBC, FERR #### [facility] [address] [address] [address] Albert Briscoe INR GUIDELINES SEE BELOW Normal [facility] Comment on above: Result Comment: DREW RED INR: 2.0 - 3.0 CONDITIONS NOT LISTED BELOW 2.5 - 3.5 FOR PROSTHETIC HEART VALVE REPLACEMENT 2.5 - 3.5 RECURRENT THROMBOSIS Performed By: #### B 12FOL, FETIBC, FERR #### [facility] [address] [place] [address] Dr. Albert Briscoe PT Coag (PPP) [Time] 10.6 s Normal 9.0-11.6 [facility] Comment on above: Performed By: #### B 12FOL, FETIBC, FERR #### [facility] [address] [place] [address] Dr. Albert Briscoe PTTon 08-19-2022 aPTT Coag (Bld) [Time] 24.4 s Normal 22.3-36.2 [facility] Comment on above: Performed By: #### B 12FOL, FETIBC, FERR #### [facility] [address] [place] [address] Dr. Albert Briscoe TROPONIN, HIGH SENSITIVITYon 08-19-2022 HSTROP 150.0 pg/mL Critically high 4.0-51.3 [facility] Comment on above: Result Comment: CUT- OFF POINTS HAVE BEEN ESTABLISHED BASED ON THE FOURTH UNIVERSAL DEFINITIONS OF MYOCARDIAL INFARCTION. THE UPPER REFERENCE LIMIT (URL) OF TROPONIN, DEFINED THE 99TH PERCENTILE OF cTnI DISTRIBUTION IN A REFERENCE POPULATION, HAS BEEN CONFIRMED THE DECISION THRESHOLD FOR AK DIAGNOSIS. Performed By: #### C BC #### [facility] [address] [place] [address] Dr. Albert Briscoe HSTROP 139.4 pg/mL Critically high 4.0-51.3 [facility] Comment on above: Result Comment: CUT- OFF POINTS HAVE BEEN ESTABLISHED BASED ON THE FOURTH UNIVERSAL DEFINITIONS OF MYOCARDIAL INFARCTION. THE UPPER REFERENCE LIMIT (URL) OF TROPONIN, DEFINED THE 99TH PERCENTILE OF cTnI DISTRIBUTION IN A REFERENCE POPULATION, HAS BEEN CONFIRMED THE DECISION THRESHOLD FOR AK DIAGNOSIS. Performed By: #### C BC #### [facility] [address] [place] [address] Dr. Albert Briscoe XR CHEST 1 Von 08-19-2022 XR CHEST 1 V EXAMINATION: XR CHEST 1 V HISTORY: Shortness of breath COMPARISON: Portable chest 02/21/2022 TECHNIQUE: Portable chest FINDINGS: The lung parenchyma is free of consolidation or infiltrate. No pneumothorax or pleural effusion. The cardiac, mediastinal and hilar contours are normal. The visualized osseous structures exhibit no gross abnormality. IMPRESSION: No acute cardiopulmonary abnormality. Electronically authenticated by: ALEM ARANDA Date: 2022-08-19 19:33 Normal [facility] CBC AUTO DIFFon 05-25-2022 BASO # 0.1 103/ul Normal 0.0-0.1 [facility] Comment on above: Performed By: #### C BC #### [facility] [address] [address] [address] Albert Briscoe Basophils/100 WBC (Bld) 1.4 % Normal 0.2-2.0 [facility] Comment on above: Performed By: #### C BC #### [facility] [address] [place] [address] Dr. Albert Briscoe EO # 0.5 103/ul Normal 0.0-0.7 [facility] Comment on above: Performed By: #### C BC #### [facility] [address] [address] [address] Albert Briscoe Eosinophils/100 WBC (Bld) 11.1 % Critically high 0.9-7.0 [facility] Comment on above: Performed By: #### C BC #### [facility] [address] [place] [address] Dr. Albert Briscoe Erythrocyte distribution width (RBC) [Ratio] 14.6 % Normal 11.0-15.0 [facility] Comment on above: Performed By: #### C BC #### [facility] [address] [address] [address] Albert Briscoe Hematocrit (Bld) [Volume fraction] 30.8 % Critically low 36.0-48.0 [facility] Comment on above: Performed By: #### C BC #### [facility] [address] [address] [address] Albert Briscoe Hemoglobin (Bld) [Mass/Vol] 9.6 g/dL Critically low 12.0-16.0 [facility] Comment on above: Performed By: #### C BC #### [facility] [address] [address] [address] Albert Briscoe IG # 0.03 10e3/ul Normal 0.00-0.03 [facility] Comment on above: Performed By: #### C BC #### [facility] [address] [place] [address] Dr. Albert Briscoe IG % 0.7 % Critically high 0.0-0.5 [facility] Comment on above: Performed By: #### C BC #### [facility] [address] [place] [address] Dr. Albert Briscoe LYMPH # 1.0 103/ul Critically low 1.2-3.8 [facility] Comment on above: Performed By: #### C BC #### [facility] [address] [place] [address] Dr. Albert Briscoe Lymphocytes/100 WBC (Bld) 22.9 % Normal 20.5-60.0 [facility] Comment on above: Performed By: #### C BC #### [facility] [address] [place] [address] Dr. Albert Briscoe MANUAL DIFF REQ NO Normal [facility] Comment on above: Performed By: #### C BC #### [facility] [address] [place] [address] Dr. Albert Briscoe MCH (RBC) [Entitic mass] 32.7 pg Normal 26.7-34.0 [facility] Comment on above: Performed By: #### C BC #### [facility] [address] [place] [address] Dr. Albert Briscoe MCHC (RBC) [Mass/Vol] 31.2 g/dL Normal 29.9-35.2 [facility] Comment on above: Performed By: #### C BC #### [facility] [address] [place] [address] Dr. Albert Briscoe MCV (RBC) [Entitic vol] 104.8 fL Critically high 81.0-99 .0 [facility] Comment on above: Performed By: #### C BC #### [facility] [address] [place] [address] Dr. Albert Briscoe MONO # 0.3 103/ul Normal 0.3-0.8 [facility] Comment on above: Performed By: #### C BC #### [facility] [address] [place] [address] Dr. Albert Briscoe Monocytes/100 WBC (Bld) 7.3 % Normal 1.7-12.0 [facility] Comment on above: Performed By: #### C BC #### [facility] [address] [place] [address] Dr. Albert Briscoe NEUT # 2.5 103/ul Normal 1.4-6.5 [facility] Comment on above: Performed By: #### C BC #### [facility] [address] [place] [address] Dr. Albert Briscoe Neutrophils/100 WBC (Bld) 56.6 % Normal 43.0-75.0 [facility] Comment on above: Performed By: #### C BC #### [facility] [address] [place] [address] Dr. Albert Briscoe Platelet mean volume (Bld) [Entitic vol] 10.4 fL Normal 9.5-13.5 [facility] Comment on above: Performed By: #### C BC #### [facility] [address] [place] [address] Dr. Albert Briscoe PLT 228 103/ul Normal 150-450 [facility] Comment on above: Performed By: #### C BC #### [facility] [address] [place] [address] Dr. Albert Briscoe RBC 2.94 106/ul Critically low 4.20-5.40 [facility] Comment on above: Performed By: #### C BC #### [facility] [address] [place] [address] Dr. Albert Briscoe WBC 4.4 103/ul Normal 4.0-11.0 [facility] Comment on above: Performed By: #### C BC #### [facility] [address] [place] [address] Dr. Albert Briscoe FERRITINon 05-25-2022 Ferritin [Mass/Vol] 353.0 ng/mL Critically high 8.0-252.0 [facility] Comment on above: Performed By: #### B 12FOL, FETIBC, FERR #### [facility] [address] [place] [address] Dr. Albert Briscoe IRON AND TIBCon 05-25-2022 % SATURATION 29.1 % Normal [facility] Comment on above: Performed By: #### B 12FOL, FETIBC, FERR #### [facility] [address] [place] [address] Dr. Albert Briscoe Iron [Mass/Vol] 81.0 ug/dL Normal 50.0-170.0 [facility] Comment on above: Performed By: #### B 12FOL, FETIBC, FERR #### [facility] [address] [place] [address] Dr. Albert Briscoe TIBC DIRECT 278.0 ug/dL Normal 250.0-450.0 [facility] Comment on above: Performed By: #### B 12FOL, FETIBC, FERR #### [facility] [address] [place] [address] Dr. Albert Briscoe RETICULOCYTEon 05-25-2022 RETIC 3.02 % Normal 0.60-3.10 [facility] Comment on above: Performed By: #### C BC #### [facility] [address] [place] [address] Dr. Albert Briscoe VIT B12 AND FOLATEon 022 Cobalamin (Vitamin B12) [Mass/Vol] 3512.0 pg/mL Critically high 193.0-986.0 [facility] Comment on above: Performed By: #### B 12FOL, FETIBC, FERR #### [facility] [address] [place] [address] Dr. Albert Briscoe FOLATE 8.20 ng/mL Critically low 8.60-58.90 [facility] Comment on above: Performed By: #### B 12FOL, FETIBC, FERR #### [facility] [address] [place], [place] [address] Dr. Albert Briscoe Albumin [Mass/volume] in Ser um or PlasmaOrdered By: Bell Camargo on 04-30-2022 Albumin [Mass/Vol] 3.6 g/dL 3.2-5.5 [facility] Basophils Auto (Bld) [#/Vol] Ordered By: Bell Camargo on 04-30-2022 Basophils (Bld) [#/Vol] 0.1 10*3/uL 0.0-0.2 [facility] Basophils/100 WBC Auto (Bld) Ordered By: Bell Camargo on 04-30-2022 Basophils/100 WBC (Bld) 1.8 % . [facility] Blood hemoglobin measurement (mass/volume)Ordered By: Bell Camargo on 04-30-2022 Hemoglobin (Bld) [Mass/Vol] 7.4 g/dL 11.8-15.4 [facility] Blood leukocytes automated c ount (number/volume)Ordered By: Bell Camargo on 04-30-2022 WBC (Bld) [#/Vol] 3.4 10*3/uL 4.5-11.[address] [facility] [address] biopsyOrdered By: Bell Reynolds se on 04-30-2022 Transferrin [Mass/Vol] 246 mg/dL 180-380 Fi [facility] Creatinine and Glomerular fi ltration rate.predicted panel (S/P/Bld)Ordered By: Bell Camargo on 04-30-2022 Creatinine [Mass/Vol] 2.16 mg/dL 0.44-1.03 [facility] Eosinophils Auto (Bld) [#/Vo l]Ordered By: Bell Camargo on 04-30-2022 Eosinophils (Bld) [#/Vol] 0.4 10*3/uL 0.0-0.45 [facility] Eosinophils/100 WBC Auto (Bl d)Ordered By: Bell Camargo on 04-30-2022 Eosinophils/100 WBC (Bld) 11.9 % . [facility] Erythrocyte distribution wid th Auto (RBC) [Ratio]Ordered By: Bell Camargo on 04-30-2022 Erythrocyte distribution width (RBC) [Ratio] 17.0 % 11.9-15.3 [facility] Estimated glomerular filtrat ion rate (GFR) non- AmericanOrdered By: Bell Camargo on 04-30-2022 GFR/1.73 sq M.predicted among non-blacks MDRD (S/P/Bld) [Vol rate/Area] 22 mL/Min [facility] Ferritin [Mass/volume] in Se rum or PlasmaOrdered By: Bell Camargo on 04-30-2022 Ferritin [Mass/Vol] 54.9 ng/mL 11-306.8 [facility] Globulin Calc (S) [Mass/Vol] Ordered By: Bell Camargo on 04-30-2022 Globulin (S) [Mass/Vol] 2.5 g/dL [facility] Hematocrit Auto (Bld) [Volum e fraction]Ordered By: Bell Camargo on 04-30-2022 Hematocrit (Bld) [Volume fraction] 23.2 % 34.0-46.4 [facility] Iron [Mass/volume] in Serum or PlasmaOrdered By: Bell Camargo on 04-30-2022 Iron [Mass/Vol] 65 ug/dL 40-150 [facility] Iron binding capacity [Mass/ volume] in Serum or PlasmaOrdered By: Bell Camargo on 04-30-2022 Iron binding capacity [Mass/Vol] 344 ug/dL 255-450 [facility] Iron saturation [Mass Fracti on] in Serum or PlasmaOrdered By: Bell Camargo on 04-30-2022 Iron saturation [Mass fraction] 18.0 % 20-50 [facility] - Hematology and Cell countsOrdered By: Bell Camargo on 04-30-2022 Nucleated RBC/100 WBC (Bld) [Ratio] 0.1 % 0-0.5 [facility] Lymphocytes Auto (Bld) [#/Vo l]Ordered By: Bell Camargo on 04-30-2022 Lymphocytes (Bld) [#/Vol] 1.0 10*3/uL 1.00-4.8 [facility] Lymphocytes/100 WBC Auto (Bl d)Ordered By: Bell Camargo on 04-30-2022 Lymphocytes/100 WBC (Bld) 29.7 % . [facility] MCH Auto (RBC) [Entitic mass ]Ordered By: Bell Camargo on 04-30-2022 MCH (RBC) [Entitic mass] 31.6 pg 24.7-34.3 [facility] MCHC Auto (RBC) [Mass/Vol]Or dered By: Bell Camargo on 04-30-2022 MCHC (RBC) [Mass/Vol] 32.1 g/dL 32.0-35.0 [facility] MCV Auto (RBC) [Entitic vol] Ordered By: Bell Camargo on 04-30-2022 MCV (RBC) [Entitic vol] 98.5 fL 80-100 [facility] Monocytes Auto (Bld) [#/Vol] Ordered By: Bell Camargo on 04-30-2022 Monocytes (Bld) [#/Vol] 0.2 10*3/uL 0.0-0.8 [facility] Monocytes/100 WBC Auto (Bld) Ordered By: Bell Camargo on 04-30-2022 Monocytes/100 WBC (Bld) 7.3 % . [facility] Neutrophils Auto (Bld) [#/Vo l]Ordered By: Bell Camargo on 04-30-2022 Neutrophils (Bld) [#/Vol] 1.7 10*3/uL 1.8-7.7 [facility] Neutrophils/100 WBC Auto (Bl d)Ordered By: Bell Camargo on 04-30-2022 Neutrophils/100 WBC (Bld) 49.3 % . [facility] No Panel InformationOrdered By: Bell Camargo on 04-30-2022 Estimated GFR () 27 mL/Min [facility] Comment on above: GFR estimated refere nce range: According to KDOQI guidelines, <60 ml/min/1.73m2 is sufficient to diagnose a patient with chronic kidney disease. Pharmacy Creatinine Clearance (Chem 21.95 [facility] Platelet mean volume Auto (B ld) [Entitic vol]Ordered By: Bell Camargo on 04-30-2022 Platelet mean volume (Bld) [Entitic vol] 8.1 fL 6.3-10.7 [facility] Platelets Auto (Bld) [#/Vol] Ordered By: Bell Camargo on 04-30-2022 Platelets (Bld) [#/Vol] 332 10*3/uL 150-450 [facility] Protein [Mass/volume] in Ser um or PlasmaOrdered By: Bell Camargo on 04-30-2022 Protein [Mass/Vol] 6.1 g/dL 6.1-7.9 [facility] RBC Auto (Bld) [#/Vol]Ordere d By: Bell Camargo on 04-30-2022 RBC (Bld) [#/Vol] 2.36 10*6/uL 3.60-5.00 [facility] Serum or plasma alanine moore otransferase measurement without P-5'-P (enzymatic activiOrdered By: Bell Camargo on 04-30-2022 ALT No additional P-5'-P [Catalytic activity/Vol] 10 U/L 10-60 [facility] Serum or plasma albumin/glob ulin mass ratioOrdered By: Bell Camargo on 04-30-2022 Albumin/Globulin [Mass ratio] 1.4 {ratio} [facility] Serum or plasma alkaline akshat sphatase measurement (enzymatic activity/volume)Ordered By: Bell Camargo on 04-30-2022 ALP [Catalytic activity/Vol] 57 U/L 32-92 [facility] Serum or plasma anion gap de terminationOrdered By: Bell Camargo on 04-30-2022 Anion gap [Moles/Vol] 16.0 mmol/L 6.0-15.0 [facility] Serum or plasma aspartate am inotransferase measurement (enzymatic activity/volume)Ordered By: Bell Camargo on 04-30-2022 AST [Catalytic activity/Vol] 17 U/L 10-42 [facility] Serum or plasma calcium ej urement (mass/volume)Ordered By: Bell Camargo on 04-30-2022 Calcium [Mass/Vol] 8.9 mg/dL 8.2-10.2 [facility] Serum or plasma chloride mak surement (moles/volume)Ordered By: Bell Camargo on 04-30-2022 Chloride [Moles/Vol] 100 mmol/L 95-114 [facility] Serum or plasma glucose ej urement (mass/volume)Ordered By: Bell Camargo on 04-30-2022 Glucose [Mass/Vol] 98 mg/dL 70-100 [facility] Comment on above: ADA recommended refe rence rangeRandom Glucose Reference Range is dependent on time and content of last meal. Glucose of more than 200 mg/dL in a nonstressed, ambulatory subject supports the diagnosis of Diabetes Mellitus. Serum or plasma potassium me asurement (moles/volume)Ordered By: Bell Camargo on 04-30-2022 Potassium [Moles/Vol] 4.7 mmol/L 3.5-5.1 [facility] Serum or plasma sodium measu rement (moles/volume)Ordered By: Bell Camargo on 04-30-2022 Sodium [Moles/Vol] 139 mmol/L 136-146 [facility] Serum or plasma total biliru bin measurement (mass/volume)Ordered By: Bell Camargo on 04-30-2022 Bilirubin [Mass/Vol] 0.7 mg/dL 0.3-1.2 [facility] Serum or plasma total carbon dioxide measurement (moles/volume)Ordered By: Bell Camargo on 04-30-2022 CO2 [Moles/Vol] 27.7 mmol/L 22.0-30.0 [facility] Serum or plasma urea nitroge n measurement (mass/volume)Ordered By: Bell Camargo on 04-30-2022 Urea nitrogen [Mass/Vol] 43 mg/dL 9- [facility] Basophil percentageOrdered B y: Bell Camargo on 04-17-2022 Eosinophils/100 WBC (Bld) 5 % 1-3 [facility] Basophils Auto (Bld) [#/Vol] Ordered By: Bell Camargo on 04-17-2022 Basophils (Bld) [#/Vol] N/A [facility] Basophils/100 WBC Auto (Bld) Ordered By: Bell Camargo on 04-17-2022 Basophils/100 WBC (Bld) N/A [facility] Blood anisocytosis detection Ordered By: Bell Camargo on 04-17-2022 Anisocytosis Ql (Bld) [facility] Blood hemoglobin measurement (mass/volume)Ordered By: Bell Camargo on 04-17-2022 Hemoglobin (Bld) [Mass/Vol] 7.6 g/dL 11.8-15.4 [facility] Blood leukocytes automated c ount (number/volume)Ordered By: Bell Camargo on 04-17-2022 WBC (Bld) [#/Vol] 5.8 10*3/uL 4.5-11.[address] [facility] [address] biopsyOrdered By: Bell Reynolds se on 04-17-2022 Transferrin [Mass/Vol] 234 mg/dL 180-380 [facility] Eosinophils Auto (Bld) [#/Vo l]Ordered By: Bell Camargo on 04-17-2022 Eosinophils (Bld) [#/Vol] N/A [facility] Eosinophils/100 WBC Auto (Bl d)Ordered By: Bell Camargo on 04-17-2022 Eosinophils/100 WBC (Bld) N/A [facility] Erythrocyte distribution wid th Auto (RBC) [Ratio]Ordered By: Bell Camargo on 04-17-2022 Erythrocyte distribution width (RBC) [Ratio] 16.2 % 11.9-15.3 [facility] Ferritin [Mass/volume] in Se rum or PlasmaOrdered By: Bell Camargo on 04-17-2022 Ferritin [Mass/Vol] 77.8 ng/mL 11-306.8 [facility] Hematocrit Auto (Bld) [Volum e fraction]Ordered By: Bell Camargo on 04-17-2022 Hematocrit (Bld) [Volume fraction] 23.6 % 34.0-46.4 [facility] Iron [Mass/volume] in Serum or PlasmaOrdered By: Bell Camargo on 04-17-2022 Iron [Mass/Vol] 40 ug/dL 40-150 [facility] Iron binding capacity [Mass/ volume] in Serum or PlasmaOrdered By: Bell Camargo on 04-17-2022 Iron binding capacity [Mass/Vol] 328 ug/dL 255-450 [facility] Iron saturation [Mass Fracti on] in Serum or PlasmaOrdered By: Bell Camargo on 04-17-2022 Iron saturation [Mass fraction] 12.0 % 20-50 [facility] - Hematology and Cell countsOrdered By: Bell Camargo on 04-17-2022 Nucleated RBC/100 WBC (Bld) [Ratio] 0.2 % 0-0.5 [facility] Lymphocytes Auto (Bld) [#/Vo l]Ordered By: Bell Camargo on 04-17-2022 Lymphocytes (Bld) [#/Vol] N/A [facility] Lymphocytes/100 WBC Auto (Bl d)Ordered By: Bell Camargo on 04-17-2022 Lymphocytes/100 WBC (Bld) N/A [facility] Lymphocytes/100 WBC (Bld) 19 % 18-42 [facility] MCH Auto (RBC) [Entitic mass ]Ordered By: Bell Camargo on 04-17-2022 MCH (RBC) [Entitic mass] 33.1 pg 24.7-34.3 [facility] MCHC Auto (RBC) [Mass/Vol]Or dered By: Bell Camargo on 04-17-2022 MCHC (RBC) [Mass/Vol] 32.4 g/dL 32.0-35.0 [facility] MCV Auto (RBC) [Entitic vol] Ordered By: Bell Camargo on 04-17-2022 MCV (RBC) [Entitic vol] 102.3 fL 80-100 [facility] Macrocytes detectionOrdered By: Bell Camargo on 04-17-2022 Macrocytes Ql (Bld) [facility] Metamyelocytes/100 WBC Manua l cnt (Bld)Ordered By: Bell Camargo on 04-17-2022 Metamyelocytes/100 WBC (Bld) 2 % 0-0 [facility] Monocyte %Ordered By: Bell clarke on 04-17-2022 Monocytes/100 WBC (Bld) 5 % 1-3 [facility] Monocytes Auto (Bld) [#/Vol] Ordered By: Bell Camargo on 04-17-2022 Monocytes (Bld) [#/Vol] N/A [facility] Monocytes/100 WBC Auto (Bld) Ordered By: Bell Camargo on 04-17-2022 Monocytes/100 WBC (Bld) N/A [facility] Monocytes/100 WBC Manual cnt (Bld)Ordered By: Bell Camargo on 04-17-2022 Monocytes/100 WBC (Bld) 12 % 2-11 [facility] Myelocytes/100 WBC Manual cn t (Bld)Ordered By: Bell Camargo on 04-17-2022 Myelocytes/100 WBC (Bld) 2 % 0-0 [facility] Neutrophils Auto (Bld) [#/Vo l]Ordered By: Bell Camargo on 04-17-2022 Neutrophils (Bld) [#/Vol] N/A [facility] Neutrophils/100 WBC Auto (Bl d)Ordered By: Bell Camargo on 04-17-2022 Neutrophils/100 WBC (Bld) N/A [facility] No Panel InformationOrdered By: Bell Camargo on 04-17-2022 Platelet Estimate Normal Normal [facility] Platelet Morphology Comment Normal Normal [facility] Platelet mean volume Auto (B ld) [Entitic vol]Ordered By: Bell Camargo on 04-17-2022 Platelet mean volume (Bld) [Entitic vol] 8.3 fL 6.3-10.7 [facility] Platelets Auto (Bld) [#/Vol] Ordered By: Bell Camargo on 04-17-2022 Platelets (Bld) [#/Vol] 339 10*3/uL 150-450 [facility] RBC Auto (Bld) [#/Vol]Ordere d By: Bell Camargo on 04-17-2022 RBC (Bld) [#/Vol] 2.30 10*6/uL 3.60-5.00 [facility] RBC morphologyOrdered By: Aida Camargo on 04-17-2022 RBC morphology finding Nom (Bld) N/A [facility] Segmented neutrophils/100 WB C Manual cnt (Bld)Ordered By: Bell Camargo on 04-17-2022 Segmented neutrophils/100 WBC (Bld) 60 % 50-70 [facility] CBC AUTO DIFFon 04-16-2022 BASO # 0.1 103/ul Normal 0.0-0.1 [facility] Comment on above: Performed By: #### B 12FOWILDA Shipley FERR #### [facility] [address] [address] [address] Albert Briscoe Basophils/100 WBC (Bld) 1.5 % Normal 0.2-2.0 [facility] Comment on above: Performed By: #### B 12FOWILDA Shipley FERR #### [facility] [address] [place] [address] Dr. Albert Briscoe EO # 0.4 103/ul Normal 0.0-0.7 [facility] Comment on above: Performed By: #### B 12FOL, FETIBC, FERR #### [facility] [address] [place] [address] Dr. Albert Briscoe Eosinophils/100 WBC (Bld) 6.1 % Normal 0.9-7.0 [facility] Comment on above: Performed By: #### B 12FOL, FETIBC, FERR #### [facility] [address] [place] [address] Dr. Albert Briscoe Erythrocyte distribution width (RBC) [Ratio] 14.9 % Normal 11.0-15.0 [facility] Comment on above: Performed By: #### B 12FOL, FETIBC, FERR #### [facility] [address] [place] [address] Dr. Albert Briscoe Hematocrit (Bld) [Volume fraction] 22.1 % Critically low 36.0-48.0 [facility] Comment on above: Performed By: #### B 12FOL, FETIBC, FERR #### [facility] [address] [place] [address] Dr. Albert Briscoe Hemoglobin (Bld) [Mass/Vol] 6.8 g/dL Critically low 12.0-16.0 [facility] Comment on above: Performed By: #### B 12FOL, FETIBC, FERR #### [facility] [address] [place] [address] Dr. Albert Briscoe IG # 0.17 10e3/ul Critically high 0.00-0.03 [facility] Comment on above: Performed By: #### B 12FOL, FETIBC, FERR #### [facility] [address] [place] [address] Dr. Albert Briscoe IG % 2.8 % Critically high 0.0-0.5 [facility] Comment on above: Performed By: #### B 12FOL, FETIBC, FERR #### [facility] [address] [place] [address] Dr. Albert Briscoe LYMPH # 1.6 103/ul Normal 1.2-3.8 [facility] Comment on above: Performed By: #### B 12FOL, FETIBC, FERR #### [facility] [address] [place] [address] Dr. Albert Briscoe Lymphocytes/100 WBC (Bld) 25.7 % Normal 20.5-60.0 [facility] Comment on above: Performed By: #### B 12FOL, FETIBC, FERR #### [facility] [address] [place] [address] Dr. Albert Briscoe MANUAL DIFF REQ NO Normal [facility] Comment on above: Performed By: #### B 12FOL, FETIBC, FERR #### [facility] [address] [place] [address] Dr. Albert Briscoe MCH (RBC) [Entitic mass] 33.2 pg Normal 26.7-34.0 [facility] Comment on above: Performed By: #### B 12FOL, FETIBC, FERR #### [facility] [address] [place] [address] Dr. Albert Briscoe MCHC (RBC) [Mass/Vol] 30.8 g/dL Normal 29.9-35.2 [facility] Comment on above: Performed By: #### B 12FOL, FETIBC, FERR #### [facility] [address] [place] [address] Dr. Albert Briscoe MCV (RBC) [Entitic vol] 107.8 fL Critically high 81.0-99 .0 [facility] Comment on above: Performed By: #### B 12FOL, FETIBC, FERR #### [facility] [address] [place] [address] Dr. Albert Briscoe MONO # 0.6 103/ul Normal 0.3-0.8 [facility] Comment on above: Performed By: #### B 12FOL, FETIBC, FERR #### [facility] [address] [place] [address] Dr. Albert Briscoe Monocytes/100 WBC (Bld) 9.4 % Normal 1.7-12.0 [facility] Comment on above: Performed By: #### B 12FOL, FETIBC, FERR #### [facility] [address] [place] [address] Dr. Albert Briscoe NEUT # 3.3 103/ul Normal 1.4-6.5 [facility] Comment on above: Performed By: #### B 12FOL, FETIBC, FERR #### [facility] [address] [place] [address] Dr. Albert Briscoe Neutrophils/100 WBC (Bld) 54.5 % Normal 43.0-75.0 [facility] Comment on above: Performed By: #### B 12FOL, FETIBC, FERR #### [facility] [address] [place] [address] Dr. Albert Briscoe Platelet mean volume (Bld) [Entitic vol] 10.3 fL Normal 9.5-13.5 [facility] Comment on above: Performed By: #### B 12FOL, FETIBC, FERR #### [facility] [address] [place] [address] Dr. Albert Briscoe PLT 336 103/ul Normal 150-450 [facility] Comment on above: Performed By: #### B 12FOL, FETIBC, FERR #### [facility] [address] [place] [address] Dr. Albert Briscoe RBC 2.05 106/ul Critically low 4.20-5.40 [facility] Comment on above: Result Comment: Hypo chromasia 2+ Macrocytosis 2+ Performed By: #### B 12FOL, FETIBC, FERR #### [facility] [address] [place] [address] Dr. Albert Briscoe WBC 6.1 103/ul Normal 4.0-11.0 [facility] Comment on above: Performed By: #### B 12FOL, FETIBC, FERR #### [facility] [address] [place] [address] Dr. Albert Briscoe PROF 14(COMP METB)on 022 Albumin [Mass/Vol] 3.5 g/dL Normal 3.4-5.0 [facility] Comment on above: Performed By: #### C BC #### [facility] [address] [place] [address] Dr. Albert Briscoe Albumin/Globulin [Mass ratio] 1.2 {ratio} Normal [facility] Comment on above: Performed By: #### C BC #### [facility] [address] [place] [address] Dr. Albert Briscoe ALP [Catalytic activity/Vol] 63 U/L Normal 46-116 [facility] Comment on above: Performed By: #### C BC #### [facility] [address] [place] [address] Dr. Albert Briscoe ALT [Catalytic activity/Vol] 19 U/L Normal 14-59 [facility] Comment on above: Performed By: #### C BC #### [facility] [address] [place] [address] Dr. Albert Briscoe Anion gap [Moles/Vol] 12.8 mmol/L Normal [facility] Comment on above: Performed By: #### C BC #### [facility] [address] [place] [address] Dr. Albert Briscoe AST [Catalytic activity/Vol] 21 U/L Normal 15-37 [facility] Comment on above: Performed By: #### C BC #### [facility] [address] [place] [address] Dr. Albert Briscoe Bilirubin [Mass/Vol] 0.2 mg/dL Normal 0.2-1.0 [facility] Comment on above: Performed By: #### C BC #### [facility] [address] [place] [address] Dr. Albert Briscoe Calcium [Mass/Vol] 8.3 mg/dL Critically low 8.5-10.1 [facility] Comment on above: Performed By: #### C BC #### [facility] [address] [place] [address] Dr. Albert Briscoe Chloride [Moles/Vol] 101 mmol/L Normal 98-107 [facility] Comment on above: Performed By: #### C BC #### [facility] [address] [place] [address] Dr. Albert Briscoe CO2 [Moles/Vol] 28.8 mmol/L Normal 21.0-32.0 [facility] Comment on above: Performed By: #### C BC #### [facility] [address] [place] [address] Dr. Albert Briscoe Creatinine [Mass/Vol] 1.95 mg/dL Critically high 0.55-1.02 [facility] Comment on above: Performed By: #### C BC #### [facility] [address] [place] [address] Dr. Albert Briscoe EGFR-AF [place] 30 mL/min/1.73m2 Critically low >=60 [facility] Comment on above: Performed By: #### C BC #### [facility] [address] [place] [address] Dr. Albert Briscoe EGFR-NON AF [place] 25 mL/min/1.73m2 Critically low >=60 [facility] Comment on above: Performed By: #### C BC #### [facility] [address] [place] [address] Dr. Albert Briscoe Globulin (S) [Mass/Vol] 3.0 g/dL Normal [facility] Comment on above: Performed By: #### C BC #### [facility] [address] [place] [address] Dr. Albert Briscoe Glucose [Mass/Vol] 89 mg/dL Normal 74-106 [facility] Comment on above: Performed By: #### C BC #### [facility] [address] [address] [address] Albert Briscoe Potassium [Moles/Vol] 4.6 mmol/L Normal 3.5-5.1 [facility] Comment on above: Performed By: #### C BC #### [facility] [address] [place] [address] Dr. Albert Briscoe Protein [Mass/Vol] 6.5 g/dL Normal 6.4-8.2 [facility] Comment on above: Performed By: #### C BC #### [facility] [address] [place] [address] Dr. Albert Briscoe Sodium [Moles/Vol] 138 mmol/L Normal 136-145 [facility] Comment on above: Performed By: #### C BC #### [facility] [address] [place] [address] Dr. Albert Briscoe Urea nitrogen [Mass/Vol] 52.0 mg/dL Critically high 7.0-18.0 [facility] Comment on above: Performed By: #### C BC #### [facility] [address] [place] [address] Dr. Albert Briscoe Urea nitrogen/Creatinine [Mass ratio] 26.7 mg/mg Normal [facility] Comment on above: Performed By: #### C BC #### [facility] [address] [place] [address] Dr. Albert Briscoe CBC AUTO DIFFon 04-09-2022 BASO # 0.0 103/ul Normal 0.0-0.1 [facility] Comment on above: Performed By: #### C BC #### [facility] [address] [place] [address] Dr. Albert Briscoe Basophils/100 WBC (Bld) 0.8 % Normal 0.2-2.0 [facility] Comment on above: Performed By: #### C BC #### [facility] [address] [place] [address] Dr. Albert Briscoe EO # 0.4 103/ul Normal 0.0-0.7 [facility] Comment on above: Performed By: #### C BC #### [facility] [address] [place] [address] Dr. Albert Briscoe Eosinophils/100 WBC (Bld) 7.4 % Critically high 0.9-7.0 [facility] Comment on above: Performed By: #### C BC #### [facility] [address] [place] [address] Dr. Albert Briscoe Erythrocyte distribution width (RBC) [Ratio] 15.6 % Critically high 11.0-15.0 [facility] Comment on above: Performed By: #### C BC #### [facility] [address] [place] [address] Dr. Albert Briscoe Hematocrit (Bld) [Volume fraction] 24.0 % Critically low 36.0-48.0 [facility] Comment on above: Performed By: #### C BC #### [facility] [address] [place] [address] Dr. Albert Briscoe Hemoglobin (Bld) [Mass/Vol] 7.4 g/dL Critically low 12.0-16.0 [facility] Comment on above: Performed By: #### C BC #### [facility] [address] [place] [address] Dr. Albert Briscoe IG # 0.05 10e3/ul Critically high 0.00-0.03 [facility] Comment on above: Performed By: #### C BC #### [facility] [address] [place] [address] Dr. Albert Briscoe IG % 1.0 % Critically high 0.0-0.5 [facility] Comment on above: Performed By: #### C BC #### [facility] [address] [place] [address] Dr. Albert Briscoe LYMPH # 1.2 103/ul Normal 1.2-3.8 [facility] Comment on above: Performed By: #### C BC #### [facility] [address] [place] [address] Dr. Albert Briscoe Lymphocytes/100 WBC (Bld) 23.9 % Normal 20.5-60.0 [facility] Comment on above: Performed By: #### C BC #### [facility] [address] [place] [address] Dr. Albert Briscoe MANUAL DIFF REQ NO Normal [facility] Comment on above: Performed By: #### C BC #### [facility] [address] [place] [address] Dr. Albert Briscoe MCH (RBC) [Entitic mass] 32.7 pg Normal 26.7-34.0 [facility] Comment on above: Performed By: #### C BC #### [facility] [address] [address] [address] Albert Briscoe MCHC (RBC) [Mass/Vol] 30.8 g/dL Normal 29.9-35.2 [facility] Comment on above: Performed By: #### C BC #### [facility] [address] [address] [address] Albert Briscoe MCV (RBC) [Entitic vol] 106.2 fL Critically high 81.0-99 .0 [facility] Comment on above: Performed By: #### C BC #### [facility] [address] [place] [address] Dr. Albert Briscoe MONO # 0.4 103/ul Normal 0.3-0.8 [facility] Comment on above: Performed By: #### C BC #### [facility] [address] [place] [address] Dr. Albert Briscoe Monocytes/100 WBC (Bld) 8.2 % Normal 1.7-12.0 [facility] Comment on above: Performed By: #### C BC #### [facility] [address] [place] [address] Dr. Albert Briscoe NEUT # 2.8 103/ul Normal 1.4-6.5 [facility] Comment on above: Performed By: #### C BC #### [facility] [address] [place] [address] Dr. Albert Bricsoe Neutrophils/100 WBC (Bld) 58.7 % Normal 43.0-75.0 [facility] Comment on above: Performed By: #### C BC #### [facility] [address] [place] [address] Dr. Albert Briscoe Platelet mean volume (Bld) [Entitic vol] 10.3 fL Normal 9.5-13.5 [facility] Comment on above: Performed By: #### C BC #### [facility] [address] [place] [address] Dr. Albert Briscoe PLT 279 103/ul Normal 150-450 [facility] Comment on above: Performed By: #### C BC #### [facility] [address] [place] [address] Dr. Albert Briscoe RBC 2.26 106/ul Critically low 4.20-5.40 [facility] Comment on above: Performed By: #### C BC #### [facility] [address] [place] [address] Dr. Albert Briscoe WBC 4.9 103/ul Normal 4.0-11.0 [facility] Comment on above: Performed By: #### C BC #### [facility] [address] [place] [address] Dr. Albert Briscoe FERRITINon 04-09-2022 Ferritin [Mass/Vol] 170.0 ng/mL Normal 8.0-252.0 [facility] Comment on above: Performed By: #### B 12FOL, FETIBC, FERR #### [facility] [address] [place] [address] Dr. Albert Briscoe IRON AND TIBCon 04-09-2022 % SATURATION 20.6 % Normal [facility] Comment on above: Performed By: #### B 12FOL, FETIBC, FERR #### [facility] [address] [place] [address] Dr. Albert Briscoe Iron [Mass/Vol] 57.0 ug/dL Normal 50.0-170.0 [facility] Comment on above: Performed By: #### B 12FOL, FETIBC, FERR #### [facility] [address] [place] [address] Dr. Albert Briscoe TIBC DIRECT 277.0 ug/dL Normal 250.0-450.0 [facility] Comment on above: Performed By: #### B 12FOL, FETIBC, FERR #### [facility] [address] [place] [address] Dr. Albert Briscoe CBC AUTO DIFFon 02-27-2022 BASO # 0.0 103/ul Normal 0.0-0.1 [facility] Comment on above: Performed By: #### B 12FOL, FETIBC, FERR #### [facility] [address] [place] [address] Dr. Albert Briscoe Basophils/100 WBC (Bld) 0.4 % Normal 0.2-2.0 [facility] Comment on above: Performed By: #### B 12FOL, FETIBC, FERR #### [facility] [address] [place] [address] Dr. Albert Briscoe EO # 0.0 103/ul Normal 0.0-0.7 [facility] Comment on above: Performed By: #### B 12FOL, FETIBC, FERR #### [facility] [address] [place] [address] Dr. Albert Briscoe Eosinophils/100 WBC (Bld) 0.0 % Critically low 0.9-7.0 [facility] Comment on above: Performed By: #### B 12FOL, FETIBC, FERR #### [facility] [address] [place] [address] Dr. Albert Briscoe Erythrocyte distribution width (RBC) [Ratio] 14.6 % Normal 11.0-15.0 [facility] Comment on above: Performed By: #### B 12FOL, FETIBC, FERR #### [facility] [address] [place] [address] Dr. Albert Briscoe Hematocrit (Bld) [Volume fraction] 26.1 % Critically low 36.0-48.0 [facility] Comment on above: Performed By: #### B 12FOL, FETIBC, FERR #### [facility] [address] [place] [address] Dr. Albert Briscoe Hemoglobin (Bld) [Mass/Vol] 8.4 g/dL Critically low 12.0-16.0 [facility] Comment on above: Performed By: #### B 12FOL, FETIBC, FERR #### [facility] [address] [place] [address] Dr. Albert Briscoe IG # 0.49 10e3/ul Critically high 0.00-0.03 [facility] Comment on above: Performed By: #### B 12FOL, FETIBC, FERR #### [facility] [address] [place] [address] Dr. Albert Briscoe IG % 6.1 % Critically high 0.0-0.5 [facility] Comment on above: Performed By: #### B 12FOL, FETIBC, FERR #### [facility] [address] [place] [address] Dr. Albert Briscoe LYMPH # 1.0 103/ul Critically low 1.2-3.8 [facility] Comment on above: Performed By: #### B 12FOL, FETIBC, FERR #### [facility] [address] [place] [address] Dr. Albert Briscoe Lymphocytes/100 WBC (Bld) 11.9 % Critically low 20.5-60.0 [facility] Comment on above: Performed By: #### B 12FOL, FETIBC, FERR #### [facility] [address] [place] [address] Dr. Albert Briscoe MANUAL DIFF REQ NO Normal [facility] Comment on above: Performed By: #### B 12FOL, FETIBC, FERR #### [facility] [address] [place] [address] Dr. Albert Briscoe MCH (RBC) [Entitic mass] 31.1 pg Normal 26.7-34.0 [facility] Comment on above: Performed By: #### B 12FOL, FETIBC, FERR #### [facility] [address] [place] [address] Dr. Albert Briscoe MCHC (RBC) [Mass/Vol] 32.2 g/dL Normal 29.9-35.2 [facility] Comment on above: Performed By: #### B 12FOL, FETIBC, FERR #### [facility] [address] [place] [address] Dr. Albert Briscoe MCV (RBC) [Entitic vol] 96.7 fL Normal 81.0-99.0 [facility] Comment on above: Performed By: #### B 12FOL, FETIBC, FERR #### [facility] [address] [place], [place] [id number] Dr. Albert Briscoe MONO # 0.5 103/ul Normal 0.3-0.8 [facility] Comment on above: Performed By: #### B 12FOL, FETIBC, FERR #### [facility] [address] [place] [address] Dr. Albert Briscoe Monocytes/100 WBC (Bld) 6.1 % Normal 1.7-12.0 [facility] Comment on above: Performed By: #### B 12FOL, FETIBC, FERR #### [facility] [address] [place] [address] Dr. Albert Briscoe NEUT # 6.1 103/ul Normal 1.4-6.5 [facility] Comment on above: Performed By: #### B 12FOL, FETIBC, FERR #### [facility] [address] [place] [address] Dr. Albert Briscoe Neutrophils/100 WBC (Bld) 75.5 % Critically high 43.0-75.0 [facility] Comment on above: Performed By: #### B 12FOL, FETIBC, FERR #### [facility] [address] [place] [address] Dr. Albert Briscoe Platelet mean volume (Bld) [Entitic vol] 10.3 fL Normal 9.5-13.5 [facility] Comment on above: Performed By: #### B 12FOL, FETIBC, FERR #### [facility] [address] [place] [address] Dr. Albert Briscoe PLT 348 103/ul Normal 150-450 [facility] Comment on above: Performed By: #### B 12FOL, FETIBC, FERR #### [facility] [address] [place] [address] Dr. Albert Briscoe RBC 2.70 106/ul Critically low 4.20-5.40 [facility] Comment on above: Performed By: #### B 12FOL, FETIBC, FERR #### [facility] [address] [place] [address] Dr. Albert Briscoe WBC 8.1 103/ul Normal 4.0-11.0 [facility] Comment on above: Performed By: #### B 12FOL, FETIBC, FERR #### [facility] [address] [place] [address] Dr. Albert Briscoe FERRITINon 02-27-2022 Ferritin [Mass/Vol] 56.0 ng/mL Normal 8.0-252.0 [facility] Comment on above: Performed By: #### C BC #### [facility] [address] [place] [address] Dr. Albert Briscoe IRON AND TIBCon 02-27-2022 % SATURATION 24.0 % Normal [facility] Comment on above: Performed By: #### C BC #### [facility] [address] [place] [address] Dr. Albert Briscoe Iron [Mass/Vol] 84.0 ug/dL Normal 50.0-170.0 [facility] Comment on above: Performed By: #### C BC #### [facility] [address] [place] [address] Dr. Albert Briscoe TIBC DIRECT 350.0 ug/dL Normal 250.0-450.0 [facility] Comment on above: Performed By: #### C BC #### [facility] [address] [place] [address] Dr. Albert Briscoe BNPon 02-21-2022 Natriuretic peptide B (Bld) [Mass/Vol] 725.0 pg/mL Normal <=1,800.0 [facility] Comment on above: Performed By: #### B 12FOL, FETIBC, FERR #### [facility] [address] [place] [address] Dr. Albert Briscoe CBC AUTO DIFFon 02-21-2022 BASO # 0.1 103/ul Normal 0.0-0.1 [facility] Comment on above: Performed By: #### C BC #### [facility] [address] [place] [address] Dr. Albert Briscoe Basophils/100 WBC (Bld) 0.5 % Normal 0.2-2.0 [facility] Comment on above: Performed By: #### C BC #### [facility] [address] [address] [address] Albert Briscoe EO # 0.1 103/ul Normal 0.0-0.7 [facility] Comment on above: Performed By: #### C BC #### [facility] [address] [address] [address] Albert Briscoe Eosinophils/100 WBC (Bld) 0.8 % Critically low 0.9-7.0 [facility] Comment on above: Performed By: #### C BC #### [facility] [address] [place] [address] Dr. Albert Briscoe Erythrocyte distribution width (RBC) [Ratio] 14.8 % Normal 11.0-15.0 [facility] Comment on above: Performed By: #### C BC #### [facility] [address] [place] [address] Dr. Albert Briscoe Hematocrit (Bld) [Volume fraction] 28.4 % Critically low 36.0-48.0 [facility] Comment on above: Performed By: #### C BC #### [facility] [address] [place] [address] Dr. Albert Briscoe Hemoglobin (Bld) [Mass/Vol] 9.2 g/dL Critically low 12.0-16.0 [facility] Comment on above: Performed By: #### C BC #### [facility] [address] [place] [address] Dr. Albert Briscoe IG # 0.33 10e3/ul Critically high 0.00-0.03 [facility] Comment on above: Performed By: #### C BC #### [facility] [address] [place] [address] Dr. Albert Briscoe IG % 2.0 % Critically high 0.0-0.5 [facility] Comment on above: Performed By: #### C BC #### [facility] [address] [place] [address] Dr. Albert Briscoe LYMPH # 1.2 103/ul Normal 1.2-3.8 [facility] Comment on above: Performed By: #### C BC #### [facility] [address] [place] [address] Dr. Albert Briscoe Lymphocytes/100 WBC (Bld) 7.1 % Critically low 20.5-60.0 [facility] Comment on above: Performed By: #### C BC #### [facility] [address] [place] [address] Dr. Albert Briscoe MANUAL DIFF REQ NO Normal [facility] Comment on above: Performed By: #### C BC #### [facility] [address] [place] [address] Dr. Albert Briscoe MCH (RBC) [Entitic mass] 31.5 pg Normal 26.7-34.0 [facility] Comment on above: Performed By: #### C BC #### [facility] [address] [place] [address] Dr. Albert Briscoe MCHC (RBC) [Mass/Vol] 32.4 g/dL Normal 29.9-35.2 [facility] Comment on above: Performed By: #### C BC #### [facility] [address] [place] [address] Dr. Albert Briscoe MCV (RBC) [Entitic vol] 97.3 fL Normal 81.0-99.0 [facility] Comment on above: Performed By: #### C BC #### [facility] [address] [place] [address] Dr. Albert Briscoe MONO # 1.2 103/ul Critically high 0.3-0.8 [facility] Comment on above: Performed By: #### C BC #### [facility] [address] [place] [address] Dr. Albert Briscoe Monocytes/100 WBC (Bld) 7.2 % Normal 1.7-12.0 [facility] Comment on above: Performed By: #### C BC #### [facility] [address] [place] [address] Dr. Albert Briscoe NEUT # 13.5 103/ul Critically high 1.4-6.5 [facility] Comment on above: Performed By: #### C BC #### [facility] [address] [address] [address] Albert Briscoe Neutrophils/100 WBC (Bld) 82.4 % Critically high 43.0-75.0 [facility] Comment on above: Performed By: #### C BC #### [facility] [address] [place] [address] Dr. Albert Briscoe Platelet mean volume (Bld) [Entitic vol] 10.1 fL Normal 9.5-13.5 [facility] Comment on above: Performed By: #### C BC #### [facility] [address] [place] [address] Dr. Albert Briscoe PLT 282 103/ul Normal 150-450 [facility] Comment on above: Performed By: #### C BC #### [facility] [address] [place] [address] Dr. Albert Briscoe RBC 2.92 106/ul Critically low 4.20-5.40 [facility] Comment on above: Performed By: #### C BC #### [facility] [address] [place] [address] Dr. Albert Briscoe WBC 16.4 103/ul Critically high 4.0-11.0 [facility] Comment on above: Performed By: #### C BC #### [facility] [address] [place] [address] Dr. Albert Brisco[facility] SARS-CoV-2 (COVID-19) RNA TRACIE+probe Ql (Unsp spec) Not detected Normal NOT DETECTED [facility] Comment on above: Result Comment: When diagnostic testing is negative, the possibility of a false negative should be considered in the context of a patient's recent exposures and the presence of clinical signs and symptoms consistent with SARS-CoV-2. This test is not yet approved or cleared by the [place] FDA. When there are no FDA-approved or cleared tests available, and other criteria are met, FDA can make tests available under an emergency access mechanism called an Emergency Use Authorization (EUA). The EUA for this test is supported by the [employer] Supervisor of Health and Human Service's declaration that circumstances exist to justify the emergency use of in vitro diagnostics for the detection and/or diagnosis of the virus that causes COVID-19. This EUA will remain in effect for the duration of the COVID-19 declaration justifying emergency of IVDs, unless it is terminated or revoked by the FDA (after which the test may no longer be used). Performed By: #### C VDTBH #### [facility] [address] [place] [address] Dr. Albert Briscoe PROF CHEM 8 (BAS METB)on Anion gap [Moles/Vol] 11.0 mmol/L Normal [facility] Comment on above: Performed By: #### B 12FOL, FETIBC, FERR #### [facility] [address] [place] [address] Dr. Albert Briscoe Calcium [Mass/Vol] 8.8 mg/dL Normal 8.5-10.1 [facility] Comment on above: Performed By: #### B 12FOL, FETIBC, FERR #### [facility] [address] [place] [address] Dr. Albert Briscoe Chloride [Moles/Vol] 101 mmol/L Normal 98-107 [facility] Comment on above: Performed By: #### B 12FOL, FETIBC, FERR #### [facility] [address] [place] [address] Dr. Albert Briscoe CO2 [Moles/Vol] 28.6 mmol/L Normal 21.0-32.0 [facility] Comment on above: Performed By: #### B 12FOL, FETIBC, FERR #### [facility] [address] [place] [address] Dr. Albert Briscoe Creatinine [Mass/Vol] 1.65 mg/dL Critically high 0.55-1.02 [facility] Comment on above: Performed By: #### B 12FOL, FETIBC, FERR #### [facility] [address] [place] [address] Dr. Albert Briscoe EGFR-AF [place] 37 mL/min/1.73m2 Critically low >=60 [facility] Comment on above: Performed By: #### B 12FOL, FETIBC, FERR #### [facility] [address] [address] [address] Albert Briscoe EGFR-NON AF [place] 30 mL/min/1.73m2 Critically low >=60 [facility] Comment on above: Performed By: #### B 12FOL, FETIBC, FERR #### [facility] [address] [place] [address] Dr. Albert Briscoe Glucose [Mass/Vol] 115 mg/dL Critically high 74-106 [facility] Comment on above: Performed By: #### B 12FOL, FETIBC, FERR #### [facility] [address] [place] [address] Dr. Albert Briscoe Potassium [Moles/Vol] 4.6 mmol/L Normal 3.5-5.1 [facility] Comment on above: Performed By: #### B 12FOL, FETIBC, FERR #### [facility] [address] [place] [address] Dr. Albert Briscoe Sodium [Moles/Vol] 136 mmol/L Normal 136-145 [facility] Comment on above: Performed By: #### B 12FOL, FETIBC, FERR #### [facility] [address] [place] [address] Dr. Albert Briscoe Urea nitrogen [Mass/Vol] 48.0 mg/dL Critically high 7.0-18.0 [facility] Comment on above: Performed By: #### B 12FOL, FETIBC, FERR #### [facility] [address] [place] [address] Dr. Albert Briscoe Urea nitrogen/Creatinine [Mass ratio] 29.1 mg/mg Normal [facility] Comment on above: Performed By: #### B 12FOL, FETIBC, FERR #### [facility] [address] [place] [address] Dr. Albert Briscoe TROPONIN, HIGH SENSITIVITYon 02-21-2022 HSTROP 202.4 pg/mL Critically high 4.0-51.3 [facility] Comment on above: Result Comment: CUT- OFF POINTS HAVE BEEN ESTABLISHED BASED ON THE FOURTH UNIVERSAL DEFINITIONS OF MYOCARDIAL INFARCTION. THE UPPER REFERENCE LIMIT (URL) OF TROPONIN, DEFINED THE 99TH PERCENTILE OF cTnI DISTRIBUTION IN A REFERENCE POPULATION, HAS BEEN CONFIRMED THE DECISION THRESHOLD FOR AK DIAGNOSIS. Performed By: #### B VENKAT DAVISC, FERR #### [facility] [address] [place] [address] Dr. Albert Briscoe XR CHEST 1 Von 02-21-2022 XR CHEST 1 V EXAM: XR CHEST 1 V 02/21/2022 HISTORY: COUGH. COMPARISON STUDY: AP chest 08/10/2021. FINDINGS: Single upright AP chest image was obtained. The patient is quite rotated. IMPRESSION: 1. Heart size remains stable. There are heavy calcifications associated with the mitral valve annulus. 2. Lung volumes are mildly diminished with slight asymmetric elevation left hemidiaphragm noted. Minimal left basilar atelectatic change noted. No edema, failure, effusion, pneumothorax or acute osseous change otherwise identified. Electronically authenticated by: ASIYA MARYLOU Date: 2022-02-21 10:35 Normal [facility] CBC AUTO DIFFon 01-30-2022 BASO # 0.1 103/ul Normal 0.0-0.1 [facility] Comment on above: Performed By: #### B WILDA DAVIS, FERR #### [facility] [address] [place] [address] Dr. Albert Briscoe Basophils/100 WBC (Bld) 0.9 % Normal 0.2-2.0 [facility] Comment on above: Performed By: #### B NavaFOL FETIBC, FERR #### [facility] [address] [place] [address] Dr. Albert Briscoe EO # 0.4 103/ul Normal 0.0-0.7 [facility] Comment on above: Performed By: #### B NavaFOYUNG ShipleyIBC, FERR #### [facility] [address] [place] [address] Dr. Albert Briscoe Eosinophils/100 WBC (Bld) 6.6 % Normal 0.9-7.0 [facility] Comment on above: Performed By: #### B WILDA DAVIS, FERR #### [facility] [address] [place] [address] Dr. Albert Briscoe Erythrocyte distribution width (RBC) [Ratio] 15.6 % Critically high 11.0-15.0 [facility] Comment on above: Performed By: #### B 12FOL, FETIBC, FERR #### [facility] [address] [place] [address] Dr. Albert Briscoe Hematocrit (Bld) [Volume fraction] 31.0 % Critically low 36.0-48.0 [facility] Comment on above: Performed By: #### B 12FOL, FETIBC, FERR #### [facility] [address] [place] [address] Dr. Albert Briscoe Hemoglobin (Bld) [Mass/Vol] 9.6 g/dL Critically low 12.0-16.0 [facility] Comment on above: Performed By: #### B 12FOL, FETIBC, FERR #### [facility] [address] [place] [address] Dr. Albert Briscoe IG # 0.04 10e3/ul Critically high 0.00-0.03 [facility] Comment on above: Performed By: #### B 12FOL, FETIBC, FERR #### [facility] [address] [place] [address] Dr. Albert Briscoe IG % 0.8 % Critically high 0.0-0.5 [facility] Comment on above: Performed By: #### B 12FOL, FETIBC, FERR #### [facility] [address] [place] [address] Dr. Albert Briscoe LYMPH # 1.1 103/ul Critically low 1.2-3.8 [facility] Comment on above: Performed By: #### B 12FOL, FETIBC, FERR #### [facility] [address] [place] [address] Dr. Albert Briscoe Lymphocytes/100 WBC (Bld) 20.8 % Normal 20.5-60.0 [facility] Comment on above: Performed By: #### B 12FOL, FETIBC, FERR #### [facility] [address] [place] [address] Dr. Albert Briscoe MANUAL DIFF REQ NO Normal [facility] Comment on above: Performed By: #### B 12FOL, FETIBC, FERR #### [facility] [address] [place] [address] Dr. Albert Briscoe MCH (RBC) [Entitic mass] 31.2 pg Normal 26.7-34.0 [facility] Comment on above: Performed By: #### B 12FOL, FETIBC, FERR #### [facility] [address] [place] [address] Dr. Albert Briscoe MCHC (RBC) [Mass/Vol] 31.0 g/dL Normal 29.9-35.2 [facility] Comment on above: Performed By: #### B 12FOL, FETIBC, FERR #### [facility] [address] [place] [address] Dr. Albert Briscoe MCV (RBC) [Entitic vol] 100.6 fL Critically high 81.0-99 .0 [facility] Comment on above: Performed By: #### B 12FOL, FETIBC, FERR #### [facility] [address] [place] [address] Dr. Albert Briscoe MONO # 0.5 103/ul Normal 0.3-0.8 [facility] Comment on above: Performed By: #### B 12FOL, FETIBC, FERR #### [facility] [address] [place] [address] Dr. Albert Briscoe Monocytes/100 WBC (Bld) 8.8 % Normal 1.7-12.0 [facility] Comment on above: Performed By: #### B 12FOL, FETIBC, FERR #### [facility] [address] [place] [address] Dr. Albert Briscoe NEUT # 3.3 103/ul Normal 1.4-6.5 [facility] Comment on above: Performed By: #### B 12FOL, FETIBC, FERR #### [facility] [address] [place] [address] Dr. Albert Briscoe Neutrophils/100 WBC (Bld) 62.1 % Normal 43.0-75.0 [facility] Comment on above: Performed By: #### B 12FOL, FETIBC, FERR #### [facility] [address] [place] [address] Dr. Albert Briscoe Platelet mean volume (Bld) [Entitic vol] 10.4 fL Normal 9.5-13.5 [facility] Comment on above: Performed By: #### B 12FOL, FETIBC, FERR #### [facility] [address] [place] [address] Dr. Albert Briscoe PLT 250 103/ul Normal 150-450 [facility] Comment on above: Performed By: #### B 12FOL, FETIBC, FERR #### [facility] [address] [place] [address] Dr. Albert Briscoe RBC 3.08 106/ul Critically low 4.20-5.40 [facility] Comment on above: Performed By: #### B 12FOL, FETIBC, FERR #### [facility] [address] [place] [address] Dr. Albert Briscoe WBC 5.3 103/ul Normal 4.0-11.0 [facility] Comment on above: Performed By: #### B 12FOL, FETIBC, FERR #### [facility] [address] [place] [address] Dr. Albert Briscoe CBC AUTO DIFFon 01-01-2022 BASO # 0.1 103/ul Normal 0.0-0.1 [facility] Comment on above: Performed By: #### B 12FOL, FETIBC, FERR #### [facility] [address] [place] [address] Dr. Albert Briscoe Basophils/100 WBC (Bld) 1.7 % Normal 0.2-2.0 [facility] Comment on above: Performed By: #### B 12FOL, FETIBC, FERR #### [facility] [address] [place] [address] Dr. Albert Briscoe EO # 0.5 103/ul Normal 0.0-0.7 [facility] Comment on above: Performed By: #### B 12FOL, FETIBC, FERR #### [facility] [address] [place] [address] Dr. Albert Briscoe Eosinophils/100 WBC (Bld) 11.9 % Critically high 0.9-7.0 [facility] Comment on above: Performed By: #### B 12FOL, FETIBC, FERR #### [facility] [address] [place] [address] Dr. Albert Briscoe Erythrocyte distribution width (RBC) [Ratio] 16.6 % Critically high 11.0-15.0 [facility] Comment on above: Performed By: #### B 12FOL, FETIBC, FERR #### [facility] [address] [place] [address] Dr. Albert Briscoe Hematocrit (Bld) [Volume fraction] 30.5 % Critically low 36.0-48.0 [facility] Comment on above: Performed By: #### B 12FOL, FETIBC, FERR #### [facility] [address] [place] [address] Dr. Albert Briscoe Hemoglobin (Bld) [Mass/Vol] 9.6 g/dL Critically low 12.0-16.0 [facility] Comment on above: Performed By: #### B 12FOL, FETIBC, FERR #### [facility] [address] [place] [address] Dr. Albert Briscoe IG # 0.03 10e3/ul Normal 0.00-0.03 [facility] Comment on above: Performed By: #### B 12FOL, FETIBC, FERR #### [facility] [address] [place] [address] Dr. Albert Briscoe IG % 0.7 % Critically high 0.0-0.5 [facility] Comment on above: Performed By: #### B 12FOL, FETIBC, FERR #### [facility] [address] [place] [address] Dr. Albert Briscoe LYMPH # 1.2 103/ul Normal 1.2-3.8 [facility] Comment on above: Performed By: #### B 12FOL, FETIBC, FERR #### [facility] [address] [place] [address] Dr. Albert Briscoe Lymphocytes/100 WBC (Bld) 29.8 % Normal 20.5-60.0 [facility] Comment on above: Performed By: #### B 12FOL, FETIBC, FERR #### [facility] [address] [place] [address] Dr. Albert Briscoe MANUAL DIFF REQ NO Normal [facility] Comment on above: Performed By: #### B 12FOL, FETIBC, FERR #### [facility] [address] [place] [address] Dr. Albert Briscoe MCH (RBC) [Entitic mass] 30.9 pg Normal 26.7-34.0 [facility] Comment on above: Performed By: #### B 12FOL, FETIBC, FERR #### [facility] [address] [place] [address] Dr. Albert Briscoe MCHC (RBC) [Mass/Vol] 31.5 g/dL Normal 29.9-35.2 [facility] Comment on above: Performed By: #### B 12FOL, FETIBC, FERR #### [facility] [address] [place] [address] Dr. Albert Briscoe MCV (RBC) [Entitic vol] 98.1 fL Normal 81.0-99.0 [facility] Comment on above: Performed By: #### B 12FOL, FETIBC, FERR #### [facility] [address] [place] [address] Dr. Albert Briscoe MONO # 0.4 103/ul Normal 0.3-0.8 [facility] Comment on above: Performed By: #### B 12FOL, FETIBC, FERR #### [facility] [address] [place] [address] Dr. Albert Briscoe Monocytes/100 WBC (Bld) 10.2 % Normal 1.7-12.0 [facility] Comment on above: Performed By: #### B 12FOL, FETIBC, FERR #### [facility] [address] [place] [address] Dr. Albert Briscoe NEUT # 1.8 103/ul Normal 1.4-6.5 [facility] Comment on above: Performed By: #### B 12FOL, FETIBC, FERR #### [facility] [address] [place] [address] Dr. Albert Briscoe Neutrophils/100 WBC (Bld) 45.7 % Normal 43.0-75.0 [facility] Comment on above: Performed By: #### B 12FOL, FETIBC, FERR #### [facility] [address] [place] [address] Dr. Albert Briscoe Platelet mean volume (Bld) [Entitic vol] 10.3 fL Normal 9.5-13.5 [facility] Comment on above: Performed By: #### B 12FOL, FETIBC, FERR #### [facility] [address] [place] [address] Dr. Albert Briscoe PLT 270 103/ul Normal 150-450 [facility] Comment on above: Performed By: #### B 12FOL, FETIBC, FERR #### [facility] [address] [place] [address] Dr. Albert Briscoe RBC 3.11 106/ul Critically low 4.20-5.40 [facility] Comment on above: Performed By: #### B 12FOL, FETIBC, FERR #### [facility] [address] [place] [address] Dr. Albert Briscoe WBC 4.0 103/ul Normal 4.0-11.0 [facility] Comment on above: Performed By: #### B 12FOL, FETIBC, FERR #### [facility] [address] [place] [address] Dr. Albert Briscoe XR RIBS RT PA [place] 2 XR RIBS RT PA CH EXAMINATION: XR RIBS RT PA CH HISTORY: Contusion of right chest wall ; acute right rib pain since falling 2 weeks ago COMPARISON: XR chest 08/10/2021 FINDINGS: LUNGS: No significant pulmonary parenchymal abnormalities. PLEURA: No pneumothorax, effusion, or pleural thickening. MEDIASTINUM: No visible mass or adenopathy. CARDIAC: Stable chronic calcifications within the left myocardium. RIBS: Normal. No significant arthropathy or acute abnormality. OTHER: Negative. IMPRESSION: 1. No acute cardiac pulmonary process. 2. No visible rib fracture. Electronically authenticated by: LOVE COTTON Date: 2021-12-22 11:16 Normal [facility] CBCon 05-30-2020 Erythrocyte distribution width (RBC) [Ratio] 15.0 % High 11.5 - 14.5 [facility] Comment on above: Performed By: #### C BC #### [address] [id number] Hematocrit (Bld) [Volume fraction] 43.9 % Normal 36.0 - 46.0 [facility] Comment on above: Performed By: #### C BC #### [address] [id number] Hemoglobin (Bld) [Mass/Vol] 13.7 g/dL Normal 12.0 - 16.0 [facility] Comment on above: Performed By: #### C BC #### [address] [id number] MCHC (RBC) [Mass/Vol] 31.2 g/dL Low 32.0 - 36.0 [facility] Comment on above: Performed By: #### C BC #### [address] [id number] MCV (RBC) [Entitic vol] 102 fL High 80 - 100 U [facility] Comment on above: Performed By: #### C BC #### [address] [id number] Platelets (Bld) [#/Vol] 254 10*3/uL Normal 150 - 450 [facility] Comment on above: Performed By: #### C BC #### [address] [id number] RBC (Bld) [#/Vol] 4.32 x10E12/L Normal 4.00 - 5.20 [facility] Comment on above: Performed By: #### C BC #### [address] [id number] WBC (Bld) [#/Vol] 5.2 10*3/uL Normal 4.4 - 11.3 [facility] Comment on above: Performed By: #### C BC #### [address] [id number] CREATININEon 05-30-2020 Creatinine [Mass/Vol] 59 mL/min/1.73m2 Abnormal >60 [facility] Comment on above: Performed By: #### C REAT #### [address] [id number] Creatinine [Mass/Vol] 0.93 mg/dL Normal 0.50 - 1.05 [facility] Comment on above: Performed By: #### C REAT #### [address] [id number] Creatinine [Mass/Vol] 71 mL/min/1.73m2 Normal >60 [facility] Comment on above: Result Comment: CALC ULATIONS OF ESTIMATED GFR ARE PERFORMED USING THE MDRD STUDY EQUATION FOR THE IDMS-TRACEABLE CREATININE METHODS. CLIN CHEM 2007;53:766-72 Performed By: #### C REAT #### [address] [id number] ELECTROLYTE PANELon 05-30-20 20 Anion gap [Moles/Vol] 10 mmol/L Normal 10 - 20 [facility] Comment on above: Performed By: #### E LECT #### [address] [id number] Chloride [Moles/Vol] 105 mmol/L Normal 98 - 107 [facility] Comment on above: Performed By: #### E LECT #### [address] [id number] HCO3 (Bld) [Moles/Vol] 28 mmol/L Normal 21 - 32 [facility] Comment on above: Performed By: #### E LECT #### [address] [id number] Potassium [Moles/Vol] 4.2 mmol/L Normal 3.5 - 5.3 [facility] Comment on above: Performed By: #### E LECT #### [address] [id number] Sodium [Moles/Vol] 139 mmol/L Normal 136 - 145 [facility] Comment on above: Performed By: #### E LECT #### [address] [id number] TSHon 05-30-2020 TSH Qn 8.01 m[IU]/L High 0.44 - 3.98 [facility] Comment on above: Result Comment: TSH testing is performed using different testing methodology at [facility] than at other [facility]. Direct result comparisons should only be made within the same method. Performed By: #### T SH2 #### [address] [id number] UREA NITROGENon 05-30-2020 Urea nitrogen [Mass/Vol] 22 mg/dL Normal 6 - 23 [facility] Comment on above: Performed By: #### U TRINI #### [address] [id number] [facility] CARDIAC STRESS/REST INJE CTIONon 06-30-2019 [facility] CARDIAC STRESS/REST INJECTION Patient Name: TERRI NEWTON STUDY: MYOCARDIAL PERFUSION STRESS TEST WITH LEXISCAN Performing facility: [facility], [address] [place] [address], [address], [place] [address] [facility] Provider: Kat LOZADA NP PCP: Dr. Ceci DUNN Supervising provider: CARLO BRO INDICATION: Abnormal EKG; FATIGUE HISTORY: Gender: F; Age: 74 y/o ; Height: 162.56 cm; Weight: 72.9367436 kg. HTN PALPITATIONS COPD FATIGUE Family HX CAD; Currently smoking. COMPARISON: ACCESSION NUMBER(S): [id number] ORDERING CLINICIAN: LAURA LOZADA TECHNIQUE: ONE DAY protocol. Stress injection: Date:06/30/19, 35.8 mCi of Myoview IV 20 seconds after rapid injection of Lexiscan. Rest injection: Date: 07/10/19, 11 mCi of Myoview IV at rest. The patient had a rapid injection of 0.4 mg of Lexiscan IV over 10 seconds. Imaging was performed by GATED tomographic technique. Reason for Lexiscan: HIP/BACK PAIN STRESS TEST DATA: Resting heart rate was 51 BPM. Resting blood pressure was 126/82 mmHg. Peak blood pressure was 132/72 mmHg. Peak heart rate was 70 BPM. TEST TERMINATED DUE TO: Protocol completed FINDINGS: STRESS TEST RESULTS: Resting electrocardiogram revealed sinus bradycardia with non-specific ST segment abnormalities. There were no significant ischemic ECG changes or dysrhythmias. The patient did not have chest pains/symptoms during procedure. There was a normal recovery phase. IMAGING RESULTS: Image quality was good. Rest and stress tomographic images were reviewed and revealed abnormal perfusion. There was evidence of ischemia by perfusion images with small area of mild-moderate mid anterior ischemia. There was no evidence of myocardial infarction by perfusion images myocardial infarction. There was no left ventricular dilatation with stress. Overall left ventricular systolic function appeared to be normal. There were no regional wall motion abnormalities LVEF was 64%. TID is 1.09 and is normal. breast attenuation artifact could not be excluded. IMPRESSION: Abnormal Lexiscan Myoview cardiac perfusion stress test. Mild-Moderate mid anterior myocardial ischemia by perfusion imaging. Breast attenuation artifact could not be entirely excluded No myocardial infarction by perfusion imaging. normal left ventricular systolic function. Left ventricular ejection fraction 64 %. No previous studies are available for comparison. Electronically signed by: KYRA YEPEZ MD Normal [facility] Social History Date Type Detail Facility Start: 01-06-2024 Tobacco smoking status NEIS Current some day smoker [facility] Start: 09-23-2023 Sex Assigned At N [employer] Other Start: 07-30-2023 End: 09-23-2023 Caffeine use Caffeine use -[facility] 250 DO Work Phone: Start: 07-30-2023 Tobacco smoking status NHIS Smokes tobacco daily [facility] Start: 04-23-2022 End: 06-10-2023 Tobacco smoking status NHIS Ex-smoker (finding) [facility] Start: 1945 Sex Assigned At Female F [facility] Start: 1945 Sex Assigned At Not on file [facility] History of tobacco use Cigarette Smoker [facility] Vital Signs Date Time Vital Sign Value Performing Clinician Facility 01-07-2024 09:10-0400 Body height 162.56 cm MD Jarrell Granados Work Phone: [facility] 01-07-2024 09:10-0400 Body mass index (BMI) [Ratio] 24 kg/m2 MD Jarrell Granados Work Phone: [facility] 01-07-2024 09:10-0400 Body temperature 98.1 [degF] MD Jarrell Granados Work Phone: [facility] 01-07-2024 09:10-0400 Body weight 63.5 kg MD Jarrell Granados Work Phone: [facility] 01-07-2024 09:10-0400 Diastolic blood pressure 41 mm[Hg] MD Jarrell Granados Work Phone: [facility] 01-07-2024 09:10-0400 Heart rate 64 /min MD Jarrell Granados Work Phone: [facility] 01-07-2024 09:10-0400 Respiratory rate 18 /min MD Jarrell Granados Work Phone: [facility] 01-07-2024 09:10-0400 SaO2% (BldA) [Mass fraction] 98 % MD Jarrell Granados Work Phone: [facility] 01-07-2024 09:10-0400 Systolic blood pressure 105 mm[Hg] MD Jarrell Granados Work Phone: [facility] 01-06-2024 09:55-0400 Body temperature 97.7 [degF] MD Jarrell Granados Work Phone: [facility] 01-06-2024 09:55-0400 Body weight 63.04 kg MD Jarrell Granados Work Phone: [facility] 01-06-2024 09:55-0400 Diastolic blood pressure 74 mm[Hg] MD Jarrell Granados Work Phone: [facility] 01-06-2024 09:55-0400 Heart rate 58 /min MD Jarrell Granados Work Phone: [facility] 01-06-2024 09:55-0400 Respiratory rate 16 /min MD Jarrell Granados Work Phone: [facility] 01-06-2024 09:55-0400 SaO2% (BldA) [Mass fraction] 99 % MD Jarrell Granados Work Phone: [facility] 01-06-2024 09:55-0400 Systolic blood pressure 133 mm[Hg] MD Jarrell Granados Work Phone: [facility] 09-28-2023 11:08-0500 Body height 162.56 cm MD Jarrell Granados Work Phone: [facility] 09-28-2023 11:08-0500 Body mass index (BMI) [Ratio] 23.6 kg/m2 MD Jarrell Granados Work Phone: [facility] 09-28-2023 11:08-0500 Body temperature 98.2 [degF] MD Jarrell Granados Work Phone: [facility] 09-28-2023 11:08-0500 Body weight 62.34 kg MD Jarrell Granados Work Phone: [facility] 09-28-2023 11:08-0500 Diastolic blood pressure 53 mm[Hg] MD Jarrell Granados Work Phone: [facility] 09-28-2023 11:08-0500 Heart rate 53 /min MD Jarrell Granados Work Phone: [facility] 09-28-2023 11:08-0500 Respiratory rate 20 /min MD Jarrell Granados Work Phone: [facility] 09-28-2023 11:08-0500 SaO2% (BldA) [Mass fraction] 100 % MD Jarrell Granados Work Phone: [facility] 09-28-2023 11:08-0500 Systolic blood pressure 126 mm[Hg] MD Jarrell Granados Work Phone: [facility] 09-18-2023 09:00-0500 Body height 162.56 cm Tamar Alvarado Other [employer] Other 09-18-2023 09:00-0500 Body mass index (BMI) [Ratio] 24.54 kg/m2 Tamar Alvarado Other [employer] Other 09-18-2023 09:00-0500 Body temperature 98 [degF] Tamar Alvarado Other [employer] Other 09-18-2023 09:00-0500 Body weight 64.86 kg Tamar Alvarado Other [employer] Other 09-18-2023 09:00-0500 Respiratory rate 18 /min Tamar Alvarado Other [employer] Other 09-18-2023 09:00-0500 SaO2% (BldA) [Mass fraction] 98 % Tamar Alvarado Other [employer] Other 09-02-2023 09:00-0500 Diastolic blood pressure 48 mm[Hg] MD Jarrell Granados Work Phone: [facility] 09-02-2023 09:00-0500 Heart rate 56 /min MD Jarrell Granados Work Phone: [facility] 09-02-2023 09:00-0500 Respiratory rate 16 /min MD Jarrell Granados Work Phone: [facility] 09-02-2023 09:00-0500 SaO2% (BldA) [Mass fraction] 99 % MD Jarrell Granados Work Phone: [facility] 09-02-2023 09:00-0500 Systolic blood pressure 113 mm[Hg] MD Jarrell Granados Work Phone: [facility] 08-08-2023 11:30-0500 Body height 162.56 cm Criss Enrique Other [employer] Other 08-08-2023 11:30-0500 Body mass index (BMI) [Ratio] 24.03 kg/m2 Criss En[employer] Other [employer] Other 08-08-2023 11:30-0500 Body temperature 99 [degF] Criss Enrique Other [employer] Other 08-08-2023 11:30-0500 Body weight 63.5 kg Criss Enrique Other [employer] Other 08-08-2023 11:30-0500 Respiratory rate 20 /min Criss Enrique Other [employer] Other 08-08-2023 11:30-0500 SaO2% (BldA) [Mass fraction] 94 % Criss Enrique Other [employer] Other 06-10-2023 09:25-0400 Body temperature 97.6 [degF] DO [employer] Work Phone: [facility] 06-10-2023 09:25-0400 Body weight 61.14 kg DO [facility] Work Phone: [facility] 06-10-2023 09:25-0400 Diastolic blood pressure 50 mm[Hg] DO [employer] [facility] Work Phone: [facility] 06-10-2023 09:25-0400 Heart rate 55 /min DO [employer] [facility] Work Phone: [facility] 06-10-2023 09:25-0400 Respiratory rate 16 /min DO [employer] Work Phone: [facility] 06-10-2023 09:25-0400 SaO2% (BldA) [Mass fraction] 99 % DO [employer] Work Phone: [facility] 06-10-2023 09:25-0400 Systolic blood pressure 124 mm[Hg] DO [employer] Work Phone: [facility] 03-10-2023 10:20-0400 Body temperature 97.5 [degF] DO [employer] Work Phone: [facility] 03-10-2023 10:20-0400 Body weight 68.03 kg DO [facility] Work Phone: [facility] 03-10-2023 10:20-0400 Diastolic blood pressure 53 mm[Hg] DO [employer] [facility] Work Phone: [facility] 03-10-2023 10:20-0400 Heart rate 56 /min DO [employer] [facility] Work Phone: [facility] 03-10-2023 10:20-0400 Respiratory rate 16 /min DO [employer] [facility] Work Phone: [facility] 03-10-2023 10:20-0400 SaO2% (BldA) [Mass fraction] 100 % DO [employer] Work Phone: [facility] 03-10-2023 10:20-0400 Systolic blood pressure 117 mm[Hg] DO [employer] [facility] Work Phone: [facility] 01-27-2023 13:49-0400 Body temperature 98.2 [degF] DO [facility] Work Phone: [facility] 01-27-2023 13:49-0400 Body weight 69.89 kg DO [facility] Work Phone: [facility] 01-27-2023 13:49-0400 Diastolic blood pressure 43 mm[Hg] DO [facility] [facility] Work Phone: [facility] 01-27-2023 13:49-0400 Heart rate 60 /min DO [facility] [facility] Work Phone: [facility] 01-27-2023 13:49-0400 Respiratory rate 20 /min DO [facility] [facility] Work Phone: [facility] 01-27-2023 13:49-0400 SaO2% (BldA) [Mass fraction] 99 % DO [facility] [facility] Work Phone: [facility] 01-27-2023 13:49-0400 Systolic blood pressure 104 mm[Hg] DO [facility] [facility] Work Phone: [facility] 11-27-2022 10:10-0400 Body temperature 97 [degF] DO [facility] Work Phone: [facility] 11-27-2022 10:10-0400 Body weight 73.02 kg DO [facility] Work Phone: [facility] 11-27-2022 10:10-0400 Diastolic blood pressure 52 mm[Hg] DO [facility] [facility] Work Phone: [facility] 11-27-2022 10:10-0400 Heart rate 61 /min DO [facility] Work Phone: [facility] 11-27-2022 10:10-0400 Respiratory rate 16 /min DO [facility] Work Phone: [facility] 11-27-2022 10:10-0400 SaO2% (BldA) [Mass fraction] 100 % DO [employer] Work Phone: [facility] 11-27-2022 10:10-0400 Systolic blood pressure 123 mm[Hg] DO [facility] Work Phone: [facility] 08-28-2022 10:33-0500 Body height 162.56 cm DO [facility] [facility] Work Phone: [facility] 06-19-2022 10:30-0400 Body height 162.56 cm Jarrell Granados Other [employer] Other 06-19-2022 10:30-0400 Body mass index (BMI) [Ratio] 27.46 kg/m2 Jarrell Granados Other [employer] Other 06-19-2022 10:30-0400 Body weight 72.58 kg Jarrell Granados Other [employer] [facility] [employer] Other 05-28-2022 11:14-0400 Body temperature 97.5 [degF] DO [employer] Work Phone: [facility] 05-28-2022 11:14-0400 Body weight 73.02 kg DO [employer] Work Phone: [facility] 05-28-2022 11:14-0400 Diastolic blood pressure 75 mm[Hg] DO [employer] [facility] Work Phone: [facility] 05-28-2022 11:14-0400 Heart rate 55 /min DO [employer] Work Phone: [facility] 05-28-2022 11:14-0400 Respiratory rate 16 /min DO [employer] Work Phone: [facility] 05-28-2022 11:14-0400 SaO2% (BldA) [Mass fraction] 98 % DO [employer] Work Phone: [facility] 05-28-2022 11:14-0400 Systolic blood pressure 147 mm[Hg] DO [employer] Work Phone: [facility] 04-23-2022 08:07-0400 Body temperature 97.8 [degF] DO [employer] Work Phone: [facility] 04-23-2022 08:07-0400 Body weight 74.84 kg DO [employer] Work Phone: [facility] 04-23-2022 08:07-0400 Diastolic blood pressure 75 mm[Hg] DO [employer] Work Phone: [facility] 04-23-2022 08:07-0400 Heart rate 60 /min DO [employer] Work Phone: [facility] 04-23-2022 08:07-0400 Respiratory rate 16 /min DO [employer] Work Phone: [facility] 04-23-2022 08:07-0400 SaO2% (BldA) [Mass fraction] 99 % DO [employer] Work Phone: [facility] 04-23-2022 08:07-0400 Systolic blood pressure 142 mm[Hg] DO [employer] Work Phone: [facility] 10-30-2021 13:04-0500 Body height 162.56 cm DO [facility] [employer] Work Phone: [facility] 10-23-2021 15:30-0500 Body height 162.56 cm Jarrell Granados Other [employer] Other 10-23-2021 15:30-0500 Body mass index (BMI) [Ratio] 27.46 kg/m2 Jarrell Granados Other [employer] Other 10-23-2021 15:30-0500 Body weight 72.58 kg Jarrell Granados Other [employer] Other 09-04-2021 16:45-0500 Body height 162.56 cm Jarrell Granados Other [employer] Other 09-04-2021 16:45-0500 Body mass index (BMI) [Ratio] 27.46 kg/m2 Jarrell Granados Other [employer] Other 09-04-2021 16:45-0500 Body weight 72.58 kg Jarrell Granados Other [employer] Other 09-04-2021 16:45-0500 Diastolic blood pressure 63 mm[Hg] Jarrell Granados Other [employer] Other 09-04-2021 16:45-0500 Systolic blood pressure 129 mm[Hg] Jarrell Granados Other [employer] Other Clinical Notes 09-04-2021 to 10-14-2023 Note Date & Type Note Facility 10-14-2023 Note Patient here for 6 m o follow up PAF and hypertension. She remains off of anticoagulants due to hx of GI bleed. Doing very well from cardiac standpoint, as she denies chest pain, SOB, palpitations, and lightheadedness/syncope. Has labs monthly for hematology. Review of Systems Hematologic/Lymphatic: Bruises/bleeds easily. Musculoskeletal: Positive for arthritis and back pain. All other systems reviewed and are negative. [facility] 10-14-2023 Note Cardiology [facility] Note Subjective Terri Newton is a 78 y.o. 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 Iron deficiency anemia Lumbago Family History Problem Relation Name Age of Onset Atrial fibrillation Brother Social History Tobacco Use Smoking status: Former Types: Cigarettes Smokeless tobacco: Never Substance Use Topics Alcohol use: Not Currently Drug use: Never Update: 03/30/2023 She is octreotide every month and iron every three months for small intestinal bleeding She follows with hematology for management She takes Lasix for lower extremity edema which is worse in the summer months She stays very active crafting and doing yard work Denies chest pain, dyspnea, lightheadedness or palpitations 10/14/2023 She has been feeling well since last seen, better than she has felt in a long time. She follows with Dr. Camargo with hematology in [place]. She is no longer having blood in her stool. Her hgb is stable. She is currently off of octreotide and iron infusions. She will see Dr. Camargo in December to see if she can continue to hold these. Denies c/o CP, dyspnea, orthopnea, PND, LE edema, dizziness/LH, palpitations, syncope. 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 Review of Systems Cardiovascular: Negative for chest pain, claudication, dyspnea on exertion, irregular heartbeat, leg swelling, near-syncope, orthopnea, palpitations, paroxysmal nocturnal dyspnea and syncope. Objective Visit Vitals BP 128/58 (BP Location: Left arm, Patient Position: Sitting) Pulse 55 Ht 1.626 m (5' 4 ) Wt 63 kg (139 lb) SpO2 100% BMI 23.86 kg/m??? Smoking Status Former BSA 1.69 m??? Physical Exam General: Awake, alert, NAD Neck: No elevated JVP. No carotid bruit Pulm: Breath sounds clear to ascultation bilaterally with no wheeze, crackles or rhonchi Cards: Regular rhythm, bradycardic, S1, S2. No S3 or S4 gallop. Murmur: none Extr: Lower extremity edema: None. DP pulses: 2+ Skin: warm, dry, well perfused Neuro: A&Ox3, No gross deficits Allergies No Known Allergies Medications Current Outpatient Medications: amLODIPine (Norvasc) 5 mg tablet, Take 1 tablet (5 mg) by mouth in the morning., Disp: 90 tablet, Rfl: 3 furosemide (Lasix) 40 mg tablet, Take 1 tablet (40 mg) by mouth once daily as directed., Disp: 90 tablet, Rfl: 3 levothyroxine (Tirosint) 75 mcg capsule, Take 75 mcg by mouth before breakfast., Disp: , Rfl: methocarbamol (Robaxin) 500 mg tablet, Take 1 tablet by mouth if needed in the morning and at bedtime., Disp: , Rfl: octreotide (SandoSTATIN) 100 mcg/mL injection, Infuse 100 mcg into a venous catheter every 30 (thirty) days. On hold, will see in December if continuing , Disp: , Rfl: propafenone (Rythmol) 150 mg tablet, TAKE 1 TABLET BY MOUTH TWICE DAILY (IN THE MORNING & AT BEDTIME), Disp: 180 tablet, Rfl: 3 Recent Labs 07/09/2023 Hgb 12.4 TSH 3.217 05/18/2023 Hgb 9.7, plat 198 Cr 2, K 3.8, BUN 44, Na 141, eGFR 24 03/08/2023 WBC 4.6, Hgb 8.1, hematocrit 26, platelet 279 Sodium 142, potassium 4.2, chloride 104, CO2, 30.6, BUN 32, Scr 1.64, eGFR 30% 01/22/2023 Scr 2.01, eGFR 24% Blood testing 09/10/2021: Hemoglobin 6.6. Hematocrit 22. Blood testing 09/09/2021: Potassium 4.6, BUN 33, creatinine 1.52. NT proBNP 685 labs 06/21/2021: CBC showed hemoglobin 9.1, hematocrit 28.8 and platelet 337; Renal function BUN 23 creatinine 1.07; Liver function ALP elevated 264, AST 35 ALT 51 Imaging and other tests EKG from 06/19/2021 sinus bradycardia heart rate 54: First-degree AV block ECHO (03/20/2021): 1. Normal ventricular systolic function 2. Mild to moderate atrial dilatation 3. No significant valvular dysfunction 4. Normal right-sided pressures 5. No pericardial effusion Cardiac cath in 2019 which showed normal coronary arteries Assessment Diagnoses and all orders for this visit: Paroxysmal atrial fibrillation (CMS/HCC) - Transthoracic echo (TTE) complete; Future History of GI bleed Essential hypertension terminal carman current use of antiarrhythmic drug Stage 3b chronic kidney disease (CKD) ([facility]) Anemia, unspecified type Plan Paroxysmal atrial fibrillation -[id number] Score is 4, she is not on anticoagulation due to life-threatening GI bleed. Discussed she is at high risk for stroke not being on any anticoagulation. She states understanding. Re-discussed the option of an LAAO device, she remains uninterested at this time. I will reach out to her hematolog (more content not included)... [facility] 09-18-2023 Evaluation note Encounter Date Diagnosis Assessment Notes Aug, Acute bronchitis (ICD-10 - J20.9) pt has rescue inhaler at home. encouraged smoking cessation. Aug, Acute sinusitis (ICD-10 - J01.90) testing is negative today in clinic. rx sent, take as directed. may continue symptomatic tx c otc meds prn. push rest/fluids. reinforced universal infection control protocols and good hand hygiene for infection control. immediate eval if warning s/s of intractable fevers, respir distress or other emergent symptoms. otherwise f/u with PCP if febrile or new/worsening s/s. Aug, Diarrhea (ICD-10 - R19.7) likely d/t prunes, pt denies any N/V or abd pain. push fluids. seek further eval if new/worsening symptoms or s/s of dehydration Aug, Acute cough (ICD-10 - R05.1) [facility] Other 12-17-2023 Evaluation note* Encounter Date Diagnosis Assessment Notes Treatment Notes Treatment Clinical Notes Jul, Acute bronchitis, unspecified organism (ICD-10 - J20.9) You were seen here for your complaints of productive cough with yellow sputum, wheezing, scratchy throat. You state your throat has improved and your sinuses have improved over the past couple days but you now have chest congestion and cough. You report your wheezing and shortness of breath are improved with using your nebulizer breathing treatments. You have audible wheezing noted with deep breaths on exam. You are being diagnosed with bronchitis and put on azithromycin and Medrol dose pack. Take the medications as prescribed, rest, drink plenty of water. As discussed, keep your appt with your primary care doctor on for close follow up. Go to the ER if you develop increased cough, shortness of breath, difficulty breathing, fever, chills, nausea, vomiting, fatigue. [facility] Other 08-08-2023 NotePatient here for 10 mo follow up hypertension, PAF, and hx of GI bleed. Amlodipine was increased to 7.5mg daily at last apt in May 2022. Still having iron infusions about every 3 months. Feels good and denies chest pain, SOB, palpitations, and lightheadedness. Review of Systems Cardiovascular: Positive for leg swelling. Hematologic/Lymphatic: Bruises/bleeds easily. Musculoskeletal: Positive for arthritis and back pain. All other systems reviewed and are negative.[facility] 03-30-2023 NoteCardiology Clinic Note Subjective Terri Newton is a 77 y.o. year old female with paroxsymal a.fib s/p DVVC in 03/2021, HTN, HLD, COPD, hypothyroidism, recent GI bleed requiring blood transfusion, gastritis, diverticulitis and GERD seen in follow-up Patient Active Problem List Diagnosis Chronic obstructive lung disease (CMS/HCC) Hypertensive disorder Hypothyroidism Obesity Paroxysmal atrial fibrillation (CMS/HCC) Anemia History of GI bleed Family History Problem Relation Name Age of Onset Atrial fibrillation Brother Social History Tobacco Use Smoking status: Former Types: Cigarettes Smokeless tobacco: Never Substance Use Topics Alcohol use: Not Currently Drug use: Never Update: 03/30/2023 She is octreotide every month and iron every three months for small intestinal bleeding She follows with hematology for management She takes Lasix for lower extremity edema which is worse in the summer months She stays very active crafting and doing yard work Denies chest pain, dyspnea, lightheadedness or palpitations Review of Systems Cardiovascular: Negative for chest pain, claudication, dyspnea on exertion, irregular heartbeat, leg swelling, near-syncope, orthopnea, palpitations, paroxysmal nocturnal dyspnea and syncope. Objective Visit Vitals BP 124/53 (BP Location: Left arm, Patient Position: Sitting) Pulse 58 Ht 1.626 m (5' 4 ) Wt 66.7 kg (147 lb) SpO2 98% BMI 25.23 kg/m??? Smoking Status Former BSA 1.74 m??? Physical Exam General: Awake, alert, NAD Neck: No elevated JVP. No carotid bruit Pulm: Breath sounds clear to ascultation bilaterally with no wheeze, crackles or rhonchi Cards: Regular rate and rhythm, S1, S2. No S3 or S4 gallop. Murmur: none Extr: Lower extremity edema: None. DP pulses: 2+ Skin: warm, dry, well perfused Neuro: A&Ox3, No gross deficits Allergies No Known Allergies Medications Current Outpatient Medications: amLODIPine (Norvasc) 2.5 mg tablet, Take 1 tablet (2.5 mg) by mouth in the morning. Take in addition to 5mg tablet, Disp: 90 tablet, Rfl: 3 amLODIPine (Norvasc) 5 mg tablet, Take 1 tablet (5 mg) by mouth in the morning., Disp: 90 tablet, Rfl: 3 folic acid (Folvite) 1 mg tablet, Take 3 mg by mouth in the morning., Disp: , Rfl: levothyroxine (Tirosint) 75 mcg capsule, Take 75 mcg by mouth before breakfast., Disp: , Rfl: methocarbamol (Robaxin) 500 mg tablet, Take 1 tablet by mouth if needed in the morning and at bedtime., Disp: , Rfl: octreotide (SandoSTATIN) 100 mcg/mL injection, Infuse 100 mcg into a venous catheter every 30 (thirty) days., Disp: , Rfl: propafenone (Rythmol) 150 mg tablet, TAKE 1 TABLET BY MOUTH TWICE DAILY (IN THE MORNING & AT BEDTIME), Disp: 180 tablet, Rfl: 3 traMADol (Ultram) 50 mg tablet, Take 1 tablet by mouth if needed., Disp: , Rfl: furosemide (Lasix) 40 mg tablet, Take 1 tablet (40 mg) by mouth once daily as directed., Disp: 90 tablet, Rfl: 3 Recent Labs 03/08/2023 WBC 4.6, Hgb 8.1, hematocrit 26, platelet 279 Sodium 142, potassium 4.2, chloride 104, CO2, 30.6, BUN 32, Scr 1.64, eGFR 30% 01/22/2023 Scr 2.01, eGFR 24% Imaging and other tests EKG from 06/19/2021 sinus bradycardia heart rate 54: First-degree AV block ECHO (03/20/2021): 1. Normal ventricular systolic function 2. Mild to moderate atrial dilatation 3. No significant valvular dysfunction 4. Normal right-sided pressures 5. No pericardial effusion Cardiac cath in 2019 which showed normal coronary arteries Assessment Diagnoses and all orders for this visit: Paroxysmal atrial fibrillation (CMS/HCC) Essential hypertension - furosemide (Lasix) 40 mg tablet; Take 1 tablet (40 mg) by mouth once daily as directed. History of GI bleed Stage 3b chronic kidney disease (CKD) (CMS/HCC) terminal carman current use of antiarrhythmic drug - ECG 12 lead; Future Plan . Paroxysmal atrial fibrillation -[id number] Score is 4, she is not on anticoagulation due to life-threatening GI bleed. she is in sinus bradycardia here today. She remains uninterested in left atrial appendage closure options. She is maintained on propafenone 150 mg twice daily. 2. Hypertension -Well-controlled on amlodipine 7.5 mg. 3. History of GI bleed -Follows with hematology, receives octreotide and iron infusions as needed. 4. Long-term use of antiarrhythmic drug - ECG here today shows sinus bradycardia, will continue current dose as she is asymptomatic. 5. Stage IIIb chronic kidney disease -Recommended follow-up with PCP with consideration for nephrology referral. Follow up in about 6 months (around 09/30/2023). Ninfa Fam APRN-LORENA [facility] Progress note Author Bell Camargo [facility] March 10, 2023 4:39pm Note Date/Time March 10, 2023 10:3 3am [facility] [place] [address] Hem/Onc Follow Up Note - OP Signed Patient: Terri Newton MR#: [id number] : 1945 Acct:[id number] Age/Sex: 77 / F Type: REG RCR Copies to: MD Ceasar Ferrari DO~ Subjective Date/Time of Service: Date of Service: 03/10/2023 Time of Service: 10:32 Chief Complaint: Patient is here today for a 6 week follow up visit for iron deficiency anemia HPI: 03/10/2023: 6-week follow-up for iron deficiency anemia after IV iron repletion in mid January. She continues monthly octreotide LAR. She notes some improvement of fatigue since iron infusions but followup labs at [place] show ongoing anemia with hemoglobin 8.1, iron saturation 10.6, and ferritin normal 158.0. She denies visible bright red blood per rectum or melena. She continues monthlyoctreotide LAR 30mg IM and has not had admissions or transfusions. At this time, we will schedule Injectafer 750mg IV weekly x 2 monthly with surveillance CBC/iron profile/ferritin--will hold iron infusions if Hemoglobin normal, iron saturation >20, and ferritin >20. Next f/u for exam and review of labs in 3 months, sooner prn. Low complexity 25 minute followup. 01/27/2023: Terri presents for follow-up for her iron deficiency anemia. She has been having fatigue and dyspnea on exertion still along with continued muscle cramps. She denies any s/s of bleeding or other new complaints. Labs reveal hgb 7.4, iron saturation 8.7% and ferritin 84. She will be set up for IV iron repletion and will follow-up in 6wks, sooner as needed. 11/27/2022: Terri is here for follow-up for her iron deficiency anemia. She notes increased fatigue and dyspnea on exertion. She is having muscle cramps as well. Denies dark, tarry stool or other s/s of bleeding. Labs are reviewed and hgb is down to 7.3 with low iron- iron saturation 10.6% and ferritin 53. We will plan to replete with additional IV iron and continue her monthly Octreotide. She doesfeel the Octreotide has improved things overall. We will follow-up in 2 months with repeat labs. 08/28/2022: 3 month followup with recent increase in fatigue, but no bright red blood per rectum or melena. Maintains monthly Octreotide, no transfusions or hospitalizations. Labs reviewed from 08/25/2022: Hemoglobin currently low at 8.9, iron saturation 8.9% and ferritin normal 114. She continues oral B12/folicacid (insurance denies homocysteine test to determine if adequate replacement dosing). I will set up infusions of Injectafer 750mg IV x 2 weekly doses. 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 Low complexity 25 minute f/u visit. 05/27/2022: Terri presents for one month f/u to review labs after Injectafer. Notes improvement in fatigue and no new symptoms--denies bright red blood per rectum and continues monthly Octreotide LAR. Hemoglobin has improved from 7.4 to 9.3 but still not normal. Iron sat improved from 18% to 29% and ferritin from 54.9 to 353. B12 elevated to 5312 but folate low at 8.3. Platelets still ok 228,000. I again offered bone marrow biopsy which she declined. Since she did have some improvement after iron infusions and still has low folate 8.3, I will have her take oral folate 3mg po monthly with f/u labs and visit in 3 months. If still anemic at that time, she will reconsider bone marrow biopsy. Low complexity followup 25 minutes. 05/01/2022: Terri is here for one week followup to start Injectafer. Her CT Abdomen/Pelvis showed no abnormality in area of epigastric pain and distension. We will reevaluate iron studies after completing Injectafer, continue monthly Octreotide LAR. If persistent anemia despite normal iron stores, we may recommend bone marrow biopsy for further workup at that time. The patient will f/u 1 month, low complexity 20 minute followup visit. 04/23/2022: Terri continues to have fatigue and dyspnea on exertion. Despite receiving Injectafer 2 infusions over 2 weeks in late February, her hemoglobin returned this week at 7.6. She denies any visible melena or bright red blood per rectum. She has continued octreotide monthly with no improvement of her symptoms. She continues to have gaseous distention and has stopped oral iron. We offered bone marrow aspiration and biopsy and she again declined this today. She is concerned with persistent epigastric pain and weight gain with some lowerextremity edema. She has not had a previous abdomen/pelvic CT and on exam she has mildly increased bowel sounds with epigastric fullness. We will follow-up results by phone and determine if further work-up is needed. I am placing another orders for Injectafer 750mg IV x 2 doses due to iron sat 12% with normalferritin 77. Repeat iron studies in 4 weeks. Moderate complexity visit 30 minutes for new symptoms. 03/05/2022: Terri notes worsening fatigue and dyspnea on exertion. Her most recent hemoglobin is down to 8.0. She has been taking octreotide LAR 20 mg IM monthly with gaseous distention and light stools but no abdominal pain. Iron studies show low iron saturation 14% with low normal ferritin 36.2. We are setting up iron infusions with Injectafer 750 mg IV x 2 doses over 2 weeks. If she has persistent anemia after repletion of iron stores we may need to considerbone marrow biopsy for other causes of anemia such as myelodysplastic syndrome. Patient is in agreement with this plan and follow-up in the next 6 weeks for review of iron studies and CBC. 12/04/2021: Terri is here for followup after initiating Octreotide LAR 20mg IM monthly with weekly CBC. 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 She notes improving energy and weekly CBC over the past month shows gradually increasing hemoglobin (11/04 Hg 10.7, 12/01/2021 Hg 11). She also had f/u iron studies 11/04/2021 with normal iron saturation 23.3% with ferritin 37. She will continue monthly Octreotide IM, and I will change CBC to monthly prior to Octreotide LAR and f/u with dc 02/2022. PREVIOUS HISTORY: Original consult 10/30/2021 This is a now 77 year old lady who reported severe anemia, presenting in 06/2021with a hemoglobin of 2.7. She received 5 units RBC and was discharged with daily ferrous sulfate. She did not present with chest pain or dyspnea, but had profound fatigue. She did not report any melena or hematochezia. She returned in Aug 2021 with hemoglobin 6.6. She received 2 more units of RBC and has been followed with every 2 week CBC since that time on daily oral iron. She denies dyspepsia or constipation on oral iron. Past history of hysterectomy age 23, no history of heavy menstrual bleeding, bleeding with surgeries, . She was on hormonal therapy post hysterectomy for about 2 years only. No history of thromboembolic disease. + for chronic constipation, prior atrial fibrillation s/p cardioversion last year. Chronic anticoagulation stopped due to severe anemia and she is being evaluated for a Watchman procedure. She was evaluated with upper and lower endoscopy in late Aug 2021 with subsequent capsular endoscopy 09/2021 revealing multiple sites of vascular ectasia--Dr. Jimenez treated gastric, small bowel, and cecal AVMs with gold probe. Dr. Granados recommended consideration of Octreotide LAR to prevent recurrent bleeding due to angiodysplasia. We discussed potential adverse reactions of cholecystitis, allergic reactions, dyspepsia. She agrees to proceed. Will contact her with repeat CBC/iron studies and consider parenteral iron if recurrent iron deficiency anemia. DIAGNOSIS: 1. Iron deficiency anemia due to chronic blood loss 2. Multiple AVMs (angiodysplasia) of gastric, proximal small bowel and cecum 09/15/2021 EGD/colonoscopy 3. Atrial fibrillation 4. COPD, prior 50+ pack year smoker, quit 02/2021 - Summary of Therapies Summary of Therapies: Octreotide LAR 20mg IM monthly ordered for AVMs--starting 10/2021. 03/05/2022: Injectafer 750 mg IV x2 doses ordered for iron saturation 14%, hemoglobin 8 04/23/2022: Injectafer 750 mg IV x2 doses ordered for iron saturation 12%, hemoglobin 7.6--patient declines bone marrow biopsy for further evaluation 08/28/2022: Repeat Injectafer 750 mg IV x2 doses ordered for iron saturation 8.6%, hemoglobin 8.9 11/27/2022: Repeat Injectafer 750mg x 2 and 01/2023. Plan monthly Injectafer x 6 months after 02/2023 visit. ROS Details: All systems reviewed & no additional complaints except as documented Subjective/ROS - Narrative: CONSTITUTIONAL: Persistent fatigue since April 2022 Injectafer infusions, negative for fever or night sweats. HEAD AND NECK: Negative for changes in hearing and vision. Negative for mouth ulcers, nasal congestion and nasal drainage. PULMONARY: Negative for chest pain, cough and dyspnea. CARDIOVASCULAR: Negative for claudication and negative for irregular heartbeat/palpitations (improved after prior cardioversion). GASTROINTESTINAL: Improved epigastric abdominal pain, decreased appetite, and constipation having 1 bowel movement per day on MiraLAX. No diarrhea, nausea orvomiting. + for known AVM. Stable stools on octreotide, recent worsening anemia. GENITOURINARY: Negative for dysuria and hematuria. ENDOCRINE: Negative for cold intolerance and heat intolerance. CENTRAL NERVOUS SYSTEM: Negative for gait disturbance and headache. No focal neurologic deficits. PSYCHIATRIC: Negative for anxiety or depression. DERMATOLOGICAL: Negative for pruritus and rash. Negative for suspicious skin lesions. MUSCULOSKELETAL: Negative for back pain or other bone/joint symptoms. HEMATOLOGICAL: Negative for bleeding and easy bruising. Negative for history of thromboembolic disease. Multiple recent RBC transfusions (none prior to last year). ALLERGY: Negative for environmental allergies and food allergies. [facility] - History Attestation statement: The following information was validated with the patient. Source: Old Records Reviewed - Medical History Medical History: Medical History (Last Reviewed 03/10/23 @ 10:33 by Bell Camargo MD) Atrial fibrillation COPD (chronic obstructive pulmonary disease) Former smoker Hypothyroidism Iron deficiency anemia Kidney stones X 6 episodes Palpitations Pneumonia - Surgical History Surgical History: Surgical History (Last Reviewed 03/10/23 @ 10:33 by Bell Camargo MD) History of bladder suspension procedure History of hysterectomy History of tonsillectomy and adenoidectomy Hx of cholecystectomy - Family History Family History: Family History (Last Reviewed 03/10/23 @ 10:33 by Bell Camargo MD) Brother Fibromyalgia Heart disease Bone cancer Father Heart disease Myocardial infarction Sister Stroke Mother Suicide - Social History Smoking Status: Former smoker Tobacco Type: cigarettes Substance Use Type: None Home Medications & Allergies Allergies No Known Drug Allergies Allergy (Verified 03/10/23 10:19) Unknown Reaction Home Medications multivitamin 1 tab PO DAILY supplement 06/01/19 [History Confirmed 03/10/23] nitroglycerin 0.4 mg sublingual tablet 0.4 mg sublingual Q5-15M PRN Chest Pain 08/01/19 [History Confirmed 03/10/23] levothyroxine 88 mcg tablet 88 mcg PO DAILY 04/14/21 [History Confirmed 03/10/23] propafenone 150 mg tablet 150 mg PO Q8H 30 days #90 tabs 04/15/21 [Rx Confirmed 03/10/23] amlodipine 5 mg tablet 5 mg PO DAILY 09/15/21 [History Confirmed 03/10/23] furosemide 40 mg tablet 20 mg PO DAILY 09/15/21 [History Confirmed 03/10/23] methocarbamol 500 mg tablet 500 mg PO BID PRN Muscle Spasm 09/15/21 [History Confirmed 03/10/23] tramadol 50 mg tablet 50 mg PO BID PRN Back Pain 10/30/21 [History Confirmed 03/10/23] folic acid 1 mg tablet 3 mg PO DAILY 30 days #90 tabs 05/28/22 [Rx Confirmed 07/19/23] vitamin B12 500 mcg-folic acid 400 mcg tablet 1 tab PO DAILY 05/28/22 [History Confirmed 03/10/23] Objective - Height/Weight Height/Weight: Height 5 ft 4 in Weight 68.039 kg BSA for Today's Weight 1.78 - Vital Signs Vital Signs: 03/10/23 10:20 Temperature 97.5 F L Pulse Rate [Left Brachial] 56 L Pulse Rate [Right Brachial] 56 L Respiratory Rate 16 Blood Pressure [Right Arm] 117/53 L 02 Sat by Pulse Oximetry 100 Oxygen Delivery Method Room Air - Pain Back Pain Intensity: 6 Physical Exam Narrative: CONSTITUTIONAL: The patient is in no acute distress. HEAD / FACE: Normocephalic. RESPIRATORY: Normal to inspection. Lungs clear to auscultation and percussion. No wheezing, rales, rhonchi or rubs. Normal effort. CARDIOVASCULAR: Regular rate and rhythm. No murmurs, gallops, or rubs. ABDOMEN: Bowel sounds normoactive. Soft, nontender and non-distended. No hepatosplenomegaly. No masses. INTEGUMENTARY: The skin is unremarkable. No rashes. No suspicious lesions EXTREMITIES: No edema, cyanosis or clubbing. NEUROLOGICAL: Alert and oriented. Cranial nerves intact. No gross motor or sensory deficits. PSYCHIATRIC: No anxiety or evidence of depression.. - ECOG Performance Status ECOG Score: 1 Results - Labs Labs: Diagram of Most Recent CBC and CMP 04/30/22 11:14 04/30/22 11:14 Outside Labs: 03/08/2023: Na 142, K 4.2, BUN 32, Creat 1.64, Glu 78, Ca 8.9, Glu 78, TB 0.2, AST 16, ALT 16, ALP 100, TP 7.2, Alb 3.8 WBC 4,600, Hg 8.1, Hct 26, Platelets 278,000---ANC 2800 Iron 30, Iron sat 10.6%, Ferritin 158 - Impressions No new imaging for review. Assessment and Plan (1) Iron deficiency anemia Qualifiers: Iron deficiency anemia type: chronic blood loss Qualified Code(s): D50.0 - Iron deficiency anemia secondary to blood loss (chronic) This is a 77 year old lady who had severe iron deficiency anemia in late 2020, continued moderate anemia with EGD/colonoscopy/capsular endoscopy showing AVM/angiodysplasia. These lesions were treated with gold probe, but due to multiple lesions Dr. Granados recommended trial of Octreotide LAR 20mg IM monthly to decrease frequency of transfusions and hospitalizations due to severe anemia. I explained the pathophysiology of AVMs contributing to iron deficiency and sheagrees to proceed. If she still has low iron stores on repeat testing despite daily oral ferrous sulfate, we will set up parenteral iron. Will f/u with me toreassess response to iron and octreotide and determine frequency of CBCs and iron infusions (for now, continue q2w CBC). 12/04/2021: Here for one month followup after starting Octreotide LAR 20mg IM monthly and oral iron. Iron saturation and ferritin are normal on 11/04/2021 labs. Energy and hemoglobin have continued to improve. Continue now monthly CBC with Octreotide LAR and f/u with me in 3 months with iron profile deferred unless recurrent symptomatic anemia. 03/05/2022: Patient has worsening fatigue and hemoglobin has declined to 8. Ironsaturation down to 14% with low normal ferritin 36. Unsure if this is iron deficiency or another cause of anemia. We will replete with Injectafer 750 mg IV x2 weekly doses and repeat labs in 6 weeks. If persistent anemia despite replete iron stores, we may need to evaluate with bone marrow biopsy to exclude myelodysplastic syndrome. Patient expressed understanding. 04/23/2022: Patient has persistent anemia with hemoglobin 7.6 despite Injectafer last week. Iron saturation is still 12% with normal ferritin 77. She also has reticulocyte count of 1.2% which is hypoproliferative for her degree of anemia. She will receive another round of Injectafer 750 mg x 2 weekly doses with repeatlabs in 4 weeks. Epigastric pain evaluated with CT abdomen pelvis to rule out mass. Okay to stop her daily oral iron. 04/30/2022: Abdomen/Pelvis CT with no concerning finding. Will receive first Injectafer of 2 today. Reeval with CBC and iron studies with exam in one month. If normal iron stores with persistent low hemoglobin, consider bone marrow biopsy at that time. 05/28/2022: Improved but persistent macrocytic anemia with replete iron stores on followup labs. We will start folic acid 3mg po daily for low folate. She agrees if persistent anemia at 3 month followup she will reconsider bone marrow biopsy. She agrees with this plan. Low complexity followup over 25 minutes to review followup labs after iron infusion. 08/28/2022: Recurrent fatigue--no obvious rectal bleeding noted by patient on monthly Octreotide. Homocysteine level to assess response to folic acid and [id number] by insurance. Again has anemia 8.9 with iron sat 8.6%--agrees to repeat infusion of Injectafer 750mg IV x 2 weeks (has been getting this about once every 4 months). 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 Low complexity followup over 25 minutes to review followup labs and coordinate repeat iron infusions. 11/27/2022: She has recurrent symptoms of GRZEGORZ with fatigue, dyspnea and muscle cramping. No s/s of bleeding. Her labs reveal low iron with saturation 10.6%, ferritin 53 and hgb 7.3. We will plan for IV iron repletion in addition to her Octreotide injections. Follow-up will be in 2 months with repeat cbc, cmp, iron studies. She is in agreement with this plan and has no questions. 01/27/2023: She continues to have symptoms and labs reveal low iron studies. We will replete with IV Injectafer and follow-up in 6 weeks to assess response. Shecontinues Octreotide as well 03/10/2023: Persistent anemia and iron sat 10% despite iron infusions in 08/2022,11/2022, and 01/2023. Known history of angiodysplasia without visible blood in stool. Due to persistent anemia and iron deficiency, I recommend monthly iron infusions with Injectafer until hemoglobin and iron saturation/ferritin normalizes. If persistent anemia with normal iron stores, we may workup with bone marrow biopsy to evaluate for angiodysplasia. Next f/u in 3 months. Low complexity 25 minute followup. (2) Folate deficiency anemia, unspecified Qualifiers: Folate deficiency anemia type: unspecified folate deficiency Qualified Code(s): D52.9 - Folate deficiency anemia, unspecified Persistent macrocytic anemia with folate deficiency by followup labs 05/25/2022. We added oral folate 3mg daily and ordered labs for 3 month methylmalonic acid and homocysteine at the time of repeat iron studies were declined by insurance. For now continue current supplementation. 03/10/2023: She continues on folic acid supplementation. Will check methylmalonic acid and homocysteine with 3 month followup labs. (3) Angiodysplasia of gastrointestinal tract Octreotide LAR 20mg IM every 28 days as noted above. 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 She denied increased bloody stools or black stools but continued to have decline in hemoglobin to 8.9 noted on labs 08/25/2022. Continue monthly octreotide LAR with further iron repletion (4) Atrial fibrillation status post cardioversion Rate controlled, followup primary care. (5) COPD (chronic obstructive pulmonary disease) (6) Hypertension (7) Hypothyroidism - Time with Patient Time Spent with Patient (Follow Up Visit): 25 minutes - f/u labs and Injectafer infusions Coordination of Care & Counseling Time: Greater than 50% of time spent with patient was for coordination of care (as documented) and [id number] counseling of patient and/or family. Dictated By: Bell Camargo MD DD/ [id number] Signed By: <Electronically signed by MD Bell Camargo> 03/10/23 16[address] [facility] Work Phone: 1(213) 180-314806-21-2023 Progress note Author Nusrat Bundy [facility] February 10, 2023 4:14pm Note Date/Time January 27, 2023 2:04p m [facility] [place] [address] Hem/Onc Follow Up Note - OP Signed Patient: Terri Newton MR#: [id number] : 1945 Acct:[id number] Age/Sex: 77 / F Type: REG RCR Copies to: MD Ceasar Ferrari, DO~ Subjective Date/Time of Service: Date of Service: 01/27/2023 Time of Service: 14:04 Chief Complaint: Patient is here for a 2 month follow up with outside labs for review. No concerns voiced at this time. HPI: 01/27/2023: Terri presents for follow-up for her iron deficiency anemia. She has been having fatigue and dyspnea on exertion still along with continued muscle cramps. She denies any s/s of bleeding or other new complaints. Labs reveal hgb 7.4, iron saturation 8.7% and ferritin 84. She will be set up for IV iron repletion and will follow-up in 6wks, sooner as needed. 11/27/2022: Terri is here for follow-up for her iron deficiency anemia. She notes increased fatigue and dyspnea on exertion. She is having muscle cramps as well. Denies dark, tarry stool or other s/s of bleeding. Labs are reviewed and hgb is down to 7.3 with low iron- iron saturation 10.6% and ferritin 53. We will plan to replete with additional IV iron and continue her monthly Octreotide. She doesfeel the Octreotide has improved things overall. We will follow-up in 2 months with repeat labs. 08/28/2022: 3 month followup with recent increase in fatigue, but no bright red blood per rectum or melena. Maintains monthly Octreotide, no transfusions or hospitalizations. Labs reviewed from 08/25/2022: Hemoglobin currently low at 8.9, iron saturation 8.9% and ferritin normal 114. She continues oral B12/folicacid (insurance denies homocysteine test to determine if adequate replacement dosing). I will set up infusions of Injectafer 750mg IV x 2 weekly doses. 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 Low complexity 25 minute f/u visit. 05/27/2022: Terri presents for one month f/u to review labs after Injectafer. Notes improvement in fatigue and no new symptoms--denies bright red blood per rectum and continues monthly Octreotide LAR. Hemoglobin has improved from 7.4 to 9.3 but still not normal. Iron sat improved from 18% to 29% and ferritin from 54.9 to 353. B12 elevated to 5312 but folate low at 8.3. Platelets still ok 228,000. I again offered bone marrow biopsy which she declined. Since she did have some improvement after iron infusions and still has low folate 8.3, I will have her take oral folate 3mg po monthly with f/u labs and visit in 3 months. If still anemic at that time, she will reconsider bone marrow biopsy. Low complexity followup 25 minutes. 05/01/2022: Terri is here for one week followup to start Injectafer. Her CT Abdomen/Pelvis showed no abnormality in area of epigastric pain and distension. We will reevaluate iron studies after completing Injectafer, continue monthly Octreotide LAR. If persistent anemia despite normal iron stores, we may recommend bone marrow biopsy for further workup at that time. The patient will f/u 1 month, low complexity 20 minute followup visit. 04/23/2022: Terri continues to have fatigue and dyspnea on exertion. Despite receiving Injectafer 2 infusions over 2 weeks in late February, her hemoglobin returned this week at 7.6. She denies any visible melena or bright red blood per rectum. She has continued octreotide monthly with no improvement of her symptoms. She continues to have gaseous distention and has stopped oral iron. We offered bone marrow aspiration and biopsy and she again declined this today. She is concerned with persistent epigastric pain and weight gain with some lowerextremity edema. She has not had a previous abdomen/pelvic CT and on exam she has mildly increased bowel sounds with epigastric fullness. We will follow-up results by phone and determine if further work-up is needed. I am placing another orders for Injectafer 750mg IV x 2 doses due to iron sat 12% with normalferritin 77. Repeat iron studies in 4 weeks. Moderate complexity visit 30 minutes for new symptoms. 03/05/2022: Terri notes worsening fatigue and dyspnea on exertion. Her most recent hemoglobin is down to 8.0. She has been taking octreotide LAR 20 mg IM monthly with gaseous distention and light stools but no abdominal pain. Iron studies show low iron saturation 14% with low normal ferritin 36.2. We are setting up iron infusions with Injectafer 750 mg IV x 2 doses over 2 weeks. If she has persistent anemia after repletion of iron stores we may need to considerbone marrow biopsy for other causes of anemia such as myelodysplastic syndrome. Patient is in agreement with this plan and follow-up in the next 6 weeks for review of iron studies and CBC. 12/04/2021: Terri is here for followup after initiating Octreotide LAR 20mg IM monthly with weekly CBC. 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 She notes improving energy and weekly CBC over the past month shows gradually increasing hemoglobin (11/04 Hg 10.7, 12/01/2021 Hg 11). She also had f/u iron studies 11/04/2021 with normal iron saturation 23.3% with ferritin 37. She will continue monthly Octreotide IM, and I will change CBC to monthly prior to Octreotide LAR and f/u with me 02/2022. PREVIOUS HISTORY: Original consult 10/30/2021 This is a now 77 year old lady who reported severe anemia, presenting in 06/2021with a hemoglobin of 2.7. She received 5 units RBC and was discharged with daily ferrous sulfate. She did not present with chest pain or dyspnea, but had profound fatigue. She did not report any melena or hematochezia. She returned in Aug 2021 with hemoglobin 6.6. She received 2 more units of RBC and has been followed with every 2 week CBC since that time on daily oral iron. She denies dyspepsia or constipation on oral iron. Past history of hysterectomy age 23, no history of heavy menstrual bleeding, bleeding with surgeries, . She was on hormonal therapy post hysterectomy for about 2 years only. No history of thromboembolic disease. + for chronic constipation, prior atrial fibrillation s/p cardioversion last year. Chronic anticoagulation stopped due to severe anemia and she is being evaluated for a Watchman procedure. She was evaluated with upper and lower endoscopy in late Aug 2021 with subsequent capsular endoscopy 09/2021 revealing multiple sites of vascular ectasia-- treated gastric, small bowel, and cecal AVMs with gold probe. Dr. Granados recommended consideration of Octreotide LAR to prevent recurrent bleeding due toangiodysplasia. We discussed potential adverse reactions of cholecystitis, allergic reactions, dyspepsia. She agrees to proceed. Will contact her with repeat CBC/iron studies and consider parenteral iron if recurrent iron deficiency anemia. DIAGNOSIS: 1. Iron deficiency anemia due to chronic blood loss 2. Multiple AVMs (angiodysplasia) of gastric, proximal small bowel and cecum 09/15/2021 EGD/colonoscopy 3. Atrial fibrillation 4. COPD, prior 50+ pack year smoker, quit 02/2021 - Summary of Therapies Summary of Therapies: Octreotide LAR 20mg IM monthly ordered for AVMs--starting 10/2021. 03/05/2022: Injectafer 750 mg IV x2 doses ordered for iron saturation 14%, hemoglobin 8 04/23/2022: Injectafer 750 mg IV x2 doses ordered for iron saturation 12%, hemoglobin 7.6--patient declines bone marrow biopsy for further evaluation 08/28/2022: Repeat Injectafer 750 mg IV x2 doses ordered for iron saturation 8.6%, hemoglobin 8.9 11/27/2022: Plan repeat Injectafer 750mg x 2 ROS Details: All systems reviewed & no additional complaints except as documented PMFSH - Medical History Medical History: Medical History (Last Reviewed 08/29/22 @ 10:36 by Bell Camargo MD) Atrial fibrillation COPD (chronic obstructive pulmonary disease) Former smoker Hypothyroidism Iron deficiency anemia Kidney stones X 6 episodes Palpitations Pneumonia - Surgical History Surgical History: Surgical History (Last Reviewed 08/29/22 @ 10:36 by Bell Camargo MD) History of bladder suspension procedure History of hysterectomy History of tonsillectomy and adenoidectomy Hx of cholecystectomy - Family History Family History: Family History (Last Reviewed 08/29/22 @ 10:36 by Bell Camargo MD) Brother Fibromyalgia Heart disease Bone cancer Father Heart disease Myocardial infarct Sister Stroke Mother Suicide - Social History Smoking Status: Former smoker Tobacco Type: cigarettes Substance Use Type: None Home Medications & Allergies Allergies No Known Drug Allergies Allergy (Verified 11/27/22 10:10) Unknown Reaction Home Medications multivitamin 1 tab PO DAILY supplement 06/01/19 [History Confirmed 01/27/23] nitroglycerin 0.4 mg sublingual tablet 0.4 mg sublingual Q5-15M PRN Chest Pain 08/01/19 [History Confirmed 01/27/23] levothyroxine 88 mcg tablet 88 mcg PO DAILY 04/14/21 [History Confirmed 01/27/23] propafenone 150 mg tablet 150 mg PO Q8H 30 days #90 tabs 04/15/21 [Rx Confirmed 01/27/23] amlodipine 5 mg tablet 5 mg PO DAILY 09/15/21 [History Confirmed 01/27/23] furosemide 40 mg tablet 20 mg PO DAILY 09/15/21 [History Confirmed 01/27/23] methocarbamol 500 mg tablet 500 mg PO BID PRN Muscle Spasm 09/15/21 [History Confirmed 01/27/23] tramadol 50 mg tablet 50 mg PO BID PRN Back Pain 10/30/21 [History Confirmed 01/27/23] folic acid 1 mg tablet 3 mg PO DAILY 30 days #90 tabs 05/28/22 [Rx Confirmed 01/27/23] vitamin B12 500 mcg-folic acid 400 mcg tablet 1 tab PO DAILY 05/28/22 [History Confirmed 01/27/23] Objective - Height/Weight Height/Weight: Height 5 ft 4 in Weight 69.899 kg - Vital Signs Vital Signs: 01/27/23 13:49 Temperature 98.2 F Pulse Rate [Right Brachial] 60 Respiratory Rate 20 Blood Pressure [Right Arm] 104/43 L 02 Sat by Pulse Oximetry 99 Oxygen Delivery Method Room Air - Pain Back Pain Intensity: 6 Physical Exam Narrative: CONSTITUTIONAL: The patient is in no acute distress. HEAD / FACE: Normocephalic. RESPIRATORY: Normal to inspection. Lungs clear to auscultation and percussion. No wheezing, rales, rhonchi or rubs. Normal effort. CARDIOVASCULAR: Regular rate and rhythm. No murmurs, gallops, or rubs. ABDOMEN: Bowel sounds normoactive. Soft, nontender and non-distended. No hepatosplenomegaly. No masses. INTEGUMENTARY: The skin is unremarkable. No rashes. No suspicious lesions EXTREMITIES: No edema, cyanosis or clubbing. NEUROLOGICAL: Alert and oriented. Cranial nerves intact. No gross motor or sensory deficits. PSYCHIATRIC: No anxiety or evidence of depression. She has a small grape sized nodule on her left buttock that is nontender. Most likely scar tissue from her Octreotide shots, no erythema or edema. Is not fixed. Results - Labs Labs: Diagram of Most Recent CBC and CMP 04/30/22 11:14 04/30/22 11:14 Assessment and Plan (1) Iron deficiency anemia Qualifiers: Iron deficiency anemia type: chronic blood loss Qualified Code(s): D50.0 - Iron deficiency anemia secondary to blood loss (chronic) This is a 77 year old lady who had severe iron deficiency anemia in late 2020, continued moderate anemia with EGD/colonoscopy/capsular endoscopy showing AVM/angiodysplasia. These lesions were treated with gold probe, but due to multiple lesions Dr. Granados recommended trial of Octreotide LAR 20mg IM monthly to decrease frequency of transfusions and hospitalizations due to severe anemia. I explained the pathophysiology of AVMs contributing to iron deficiency and sheagrees to proceed. If she still has low iron stores on repeat testing despite daily oral ferrous sulfate, we will set up parenteral iron. Will f/u with me toreassess response to iron and octreotide and determine frequency of CBCs and iron infusions (for now, continue q2w CBC). 12/04/2021: Here for one month followup after starting Octreotide LAR 20mg IM monthly and oral iron. Iron saturation and ferritin are normal on 11/04/2021 labs. Energy and hemoglobin have continued to improve. Continue now monthly CBC with Octreotide LAR and f/u with me in 3 months with iron profile deferred unless recurrent symptomatic anemia. 03/05/2022: Patient has worsening fatigue and hemoglobin has declined to 8. Ironsaturation down to 14% with low normal ferritin 36. Unsure if this is iron deficiency or another cause of anemia. We will replete with Injectafer 750 mg IV x2 weekly doses and repeat labs in 6 weeks. If persistent anemia despite replete iron stores, we may need to evaluate with bone marrow biopsy to exclude myelodysplastic syndrome. Patient expressed understanding. 04/23/2022: Patient has persistent anemia with hemoglobin 7.6 despite Injectafer last week. Iron saturation is still 12% with normal ferritin 77. She also has reticulocyte count of 1.2% which is hypoproliferative for her degree of anemia. She will receive another round of Injectafer 750 mg x 2 weekly doses with repeatlabs in 4 weeks. Epigastric pain evaluated with CT abdomen pelvis to rule out mass. Okay to stop her daily oral iron. 04/30/2022: Abdomen/Pelvis CT with no concerning finding. Will receive first Injectafer of 2 today. Reeval with CBC and iron studies with exam in one month. If normal iron stores with persistent low hemoglobin, consider bone marrow biopsy at that time. 05/28/2022: Improved but persistent macrocytic anemia with replete iron stores on followup labs. We will start folic acid 3mg po daily for low folate. She agrees if persistent anemia at 3 month followup she will reconsider bone marrow biopsy. She agrees with this plan. Low complexity followup over 25 minutes to review followup labs after iron infusion. 08/28/2022: Recurrent fatigue--no obvious rectal bleeding noted by patient on monthly Octreotide. Homocysteine level to assess response to folic acid and [id number] by insurance. Again has anemia 8.9 with iron sat 8.6%--agrees to repeat infusion of Injectafer 750mg IV x 2 weeks (has been getting this about once every 4 months). 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 Low complexity followup over 25 minutes to review followup labs and coordinate repeat iron infusions. 11/27/2022: She has recurrent symptoms of GRZEGORZ with fatigue, dyspnea and muscle cramping. No s/s of bleeding. Her labs reveal low iron with saturation 10.6%, ferritin 53 and hgb 7.3. We will plan for IV iron repletion in addition to her Octreotide injections. Follow-up will be in 2 months with repeat cbc, cmp, iron studies. She is in agreement with this plan and has no questions. 01/27/2023: She continues to have symptoms and labs reveal low iron studies. We will replete with IV Injectafer and follow-up in 6 weeks to assess response. Shecontinues Octreotide as well (2) Folate deficiency anemia, unspecified Qualifiers: Folate deficiency anemia type: unspecified folate deficiency Qualified Code(s): D52.9 - Folate deficiency anemia, unspecified Persistent macrocytic anemia with folate deficiency by followup labs 05/25/2022. We added oral folate 3mg daily and ordered labs for 3 month methylmalonic acid and homocysteine at the time of repeat iron studies were declined by insurance. For now continue current supplementation. 11/27/2022: She continues on folic acid supplementation (3) Angiodysplasia of gastrointestinal tract (4) Atrial fibrillation status post cardioversion (5) COPD (chronic obstructive pulmonary disease) (6) Hypertension (7) Hypothyroidism - Time with Patient Time Spent with Patient (Follow Up Visit): 25 minutes - f/u labs and Injectafer infusions Coordination of Care & Counseling Time: Greater than 50% of time spent with patient was for coordination of care (as documented) and [id number] counseling of patient and/or family. Dictated By: Nusrat Bundy APRN DD/ [id number] Signed By: <Electronically signed by LESLY Bundy> 02/10/23 17[address] [facility] Work Phone: [phone]) 644-126004-07-2023 Progress note Author Nusrat Bundy [facility] November 27, 2022 10:37am Note Date/Time November 27, 2022 10:2 9am [facility] [place] [address] Hem/Onc Follow Up Note - OP Signed Patient: Terri Newton MR#: [id number] : 1945 Acct:[id number] Age/Sex: 77 / F Type: REG RCR Copies to: MD Ceasar Ferrari, DO~ Subjective Date/Time of Service: Date of Service: 11/27/2022 Time of Service: 10:28 Chief Complaint: Patient is here today for a 3 month follow up visit for iron deficiency anemia and go over labs HPI: 11/27/2022: Terri is here for follow-up for her iron deficiency anemia. She notes increased fatigue and dyspnea on exertion. She is having muscle cramps as well. Denies dark, tarry stool or other s/s of bleeding. Labs are reviewed and hgb is down to 7.3 with low iron- iron saturation 10.6% and ferritin 53. We will plan to replete with additional IV iron and continue her monthly Octreotide. She doesfeel the Octreotide has improved things overall. We will follow-up in 2 months with repeat labs. 08/28/2022: 3 month followup with recent increase in fatigue, but no bright red blood per rectum or melena. Maintains monthly Octreotide, no transfusions or hospitalizations. Labs reviewed from 08/25/2022: Hemoglobin currently low at 8.9, iron saturation 8.9% and ferritin normal 114. She continues oral B12/folicacid (insurance denies homocysteine test to determine if adequate replacement dosing). I will set up infusions of Injectafer 750mg IV x 2 weekly doses. 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 Low complexity 25 minute f/u visit. 05/27/2022: Terri presents for one month f/u to review labs after Injectafer. Notes improvement in fatigue and no new symptoms--denies bright red blood per rectum and continues monthly Octreotide LAR. Hemoglobin has improved from 7.4 to 9.3 but still not normal. Iron sat improved from 18% to 29% and ferritin from 54.9 to 353. B12 elevated to 5312 but folate low at 8.3. Platelets still ok 228,000. I again offered bone marrow biopsy which she declined. Since she did have some improvement after iron infusions and still has low folate 8.3, I will have her take oral folate 3mg po monthly with f/u labs and visit in 3 months. If still anemic at that time, she will reconsider bone marrow biopsy. Low complexity followup 25 minutes. 05/01/2022: Terri is here for one week followup to start Injectafer. Her CT Abdomen/Pelvis showed no abnormality in area of epigastric pain and distension. We will reevaluate iron studies after completing Injectafer, continue monthly Octreotide LAR. If persistent anemia despite normal iron stores, we may recommend bone marrow biopsy for further workup at that time. The patient will f/u 1 month, low complexity 20 minute followup visit. 04/23/2022: Terri continues to have fatigue and dyspnea on exertion. Despite receiving Injectafer 2 infusions over 2 weeks in late February, her hemoglobin returned this week at 7.6. She denies any visible melena or bright red blood per rectum. She has continued octreotide monthly with no improvement of her symptoms. She continues to have gaseous distention and has stopped oral iron. We offered bone marrow aspiration and biopsy and she again declined this today. She is concerned with persistent epigastric pain and weight gain with some lowerextremity edema. She has not had a previous abdomen/pelvic CT and on exam she has mildly increased bowel sounds with epigastric fullness. We will follow-up results by phone and determine if further work-up is needed. I am placing another orders for Injectafer 750mg IV x 2 doses due to iron sat 12% with normalferritin 77. Repeat iron studies in 4 weeks. Moderate complexity visit 30 minutes for new symptoms. 03/05/2022: Terri notes worsening fatigue and dyspnea on exertion. Her most recent hemoglobin is down to 8.0. She has been taking octreotide LAR 20 mg IM monthly with gaseous distention and light stools but no abdominal pain. Iron studies show low iron saturation 14% with low normal ferritin 36.2. We are setting up iron infusions with Injectafer 750 mg IV x 2 doses over 2 weeks. If she has persistent anemia after repletion of iron stores we may need to considerbone marrow biopsy for other causes of anemia such as myelodysplastic syndrome. Patient is in agreement with this plan and follow-up in the next 6 weeks for review of iron studies and CBC. 12/04/2021: Terri is here for followup after initiating Octreotide LAR 20mg IM monthly with weekly CBC. 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 She notes improving energy and weekly CBC over the past month shows gradually increasing hemoglobin (11/04 Hg 10.7, 12/01/2021 Hg 11). She also had f/u iron studies 11/04/2021 with normal iron saturation 23.3% with ferritin 37. She will continue monthly Octreotide IM, and I will change CBC to monthly prior to Octreotide LAR and f/u with me 02/2022. PREVIOUS HISTORY: Original consult 10/30/2021 This is a now 77 year old lady who reported severe anemia, presenting in 06/2021with a hemoglobin of 2.7. She received 5 units RBC and was discharged with daily ferrous sulfate. She did not present with chest pain or dyspnea, but had profound fatigue. She did not report any melena or hematochezia. She returned in Aug 2021 with hemoglobin 6.6. She received 2 more units of RBC and has been followed with every 2 week CBC since that time on daily oral iron. She denies dyspepsia or constipation on oral iron. Past history of hysterectomy age 23, no history of heavy menstrual bleeding, bleeding with surgeries, . She was on hormonal therapy post hysterectomy for about 2 years only. No history of thromboembolic disease. + for chronic constipation, prior atrial fibrillation s/p cardioversion last year. Chronic anticoagulation stopped due to severe anemia and she is being evaluated for a Watchman procedure. She was evaluated with upper and lower endoscopy in late Aug 2021 with subsequent capsular endoscopy 09/2021 revealing multiple sites of vascular ectasia--Dr. Jimenez treated gastric, small bowel, and cecal AVMs with gold probe. Dr. Granados recommended consideration of Octreotide LAR to prevent recurrent bleeding due to angiodysplasia. We discussed potential adverse reactions of cholecystitis, allergic reactions, dyspepsia. She agrees to proceed. Will contact her with repeat CBC/iron studies and consider parenteral iron if recurrent iron deficiency anemia. DIAGNOSIS: 1. Iron deficiency anemia due to chronic blood loss 2. Multiple AVMs (angiodysplasia) of gastric, proximal small bowel and cecum 09/15/2021 EGD/colonoscopy 3. Atrial fibrillation 4. COPD, prior 50+ pack year smoker, quit 02/2021 - Summary of Therapies Summary of Therapies: Octreotide LAR 20mg IM monthly ordered for AVMs--starting 10/2021. 03/05/2022: Injectafer 750 mg IV x2 doses ordered for iron saturation 14%, hemoglobin 8 04/23/2022: Injectafer 750 mg IV x2 doses ordered for iron saturation 12%, hemoglobin 7.6--patient declines bone marrow biopsy for further evaluation 08/28/2022: Repeat Injectafer 750 mg IV x2 doses ordered for iron saturation 8.6%, hemoglobin 8.9 11/27/2022: Plan repeat Injectafer 750mg x 2 ROS Details: All systems reviewed & no additional complaints except as documented PMF - Medical History Medical History: Medical History (Last Reviewed 08/29/22 @ 10:36 by Bell Camargo MD) Atrial fibrillation COPD (chronic obstructive pulmonary disease) Former smoker Hypothyroidism Iron deficiency anemia Kidney stones X 6 episodes Palpitations Pneumonia - Surgical History Surgical History: Surgical History (Last Reviewed 08/29/22 @ 10:36 by Bell Camargo MD) History of bladder suspension procedure History of hysterectomy History of tonsillectomy and adenoidectomy Hx of cholecystectomy - Family History Family History: Family History (Last Reviewed 08/29/22 @ 10:36 by Bell Camargo MD) Brother Fibromyalgia Heart disease Bone cancer Father Heart disease Myocardial infarct Sister Stroke Mother Suicide - Social History Smoking Status: Former smoker Tobacco Type: cigarettes Substance Use Type: None Home Medications & Allergies Allergies No Known Drug Allergies Allergy (Verified 11/27/22 10:10) Unknown Reaction Home Medications multivitamin 1 tab PO DAILY supplement 06/01/19 [History Confirmed 11/27/22] nitroglycerin 0.4 mg sublingual tablet 0.4 mg sublingual Q5-15M PRN Chest Pain 08/01/19 [History Confirmed 11/27/22] levothyroxine 88 mcg tablet 88 mcg PO DAILY 04/14/21 [History Confirmed 11/27/22] propafenone 150 mg tablet 150 mg PO Q8H 30 days #90 tabs 04/15/21 [Rx Confirmed 11/27/22] amlodipine 5 mg tablet 5 mg PO DAILY 09/15/21 [History Confirmed 11/27/22] furosemide 40 mg tablet 20 mg PO DAILY 09/15/21 [History Confirmed 11/27/22] methocarbamol 500 mg tablet 500 mg PO BID PRN Muscle Spasm 09/15/21 [History Confirmed 11/27/22] tramadol 50 mg tablet 50 mg PO BID PRN Back Pain 10/30/21 [History Confirmed 11/27/22] folic acid 1 mg tablet 3 mg PO DAILY 30 days #90 tabs 05/28/22 [Rx Confirmed 11/27/22] vitamin B12 500 mcg-folic acid 400 mcg tablet 1 tab PO DAILY 05/28/22 [History Confirmed 11/27/22] Objective - Height/Weight Height/Weight: Height 5 ft 4 in Weight 73.028 kg - Vital Signs Vital Signs: 11/27/22 10:10 Temperature 97.0 F L Pulse Rate [Right Brachial] 61 Respiratory Rate 16 Blood Pressure [Right Arm] 123/52 L 02 Sat by Pulse Oximetry 100 Oxygen Delivery Method Room Air - Pain Back Pain Intensity: 6 Physical Exam Narrative: CONSTITUTIONAL: The patient is in no acute distress. HEAD / FACE: Normocephalic. RESPIRATORY: Normal to inspection. Lungs clear to auscultation and percussion. No wheezing, rales, rhonchi or rubs. Normal effort. CARDIOVASCULAR: Regular rate and rhythm. No murmurs, gallops, or rubs. ABDOMEN: Bowel sounds normoactive. Soft, nontender and non-distended. No hepatosplenomegaly. No masses. INTEGUMENTARY: The skin is unremarkable. No rashes. No suspicious lesions EXTREMITIES: No edema, cyanosis or clubbing. NEUROLOGICAL: Alert and oriented. Cranial nerves intact. No gross motor or sensory deficits. PSYCHIATRIC: No anxiety or evidence of depression. She has a small grape sized nodule on her left buttock that is nontender. Most likely scar tissue from her Octreotide shots, no erythema or edema. Is not fixed. Results - Labs Labs: Diagram of Most Recent CBC and CMP 04/30/22 11:14 04/30/22 11:14 Assessment and Plan (1) Iron deficiency anemia Qualifiers: Iron deficiency anemia type: chronic blood loss Qualified Code(s): D50.0 - Iron deficiency anemia secondary to blood loss (chronic) This is a 77 year old lady who had severe iron deficiency anemia in late 2020, continued moderate anemia with EGD/colonoscopy/capsular endoscopy showing AVM/angiodysplasia. These lesions were treated with gold probe, but due to multiple lesions Dr. Granados recommended trial of Octreotide LAR 20mg IM monthly to decrease frequency of transfusions and hospitalizations due to severe anemia. I explained the pathophysiology of AVMs contributing to iron deficiency and sheagrees to proceed. If she still has low iron stores on repeat testing despite daily oral ferrous sulfate, we will set up parenteral iron. Will f/u with me toreassess response to iron and octreotide and determine frequency of CBCs and iron infusions (for now, continue q2w CBC). 12/04/2021: Here for one month followup after starting Octreotide LAR 20mg IM monthly and oral iron. Iron saturation and ferritin are normal on 11/04/2021 labs. Energy and hemoglobin have continued to improve. Continue now monthly CBC with Octreotide LAR and f/u with me in 3 months with iron profile deferred unless recurrent symptomatic anemia. 03/05/2022: Patient has worsening fatigue and hemoglobin has declined to 8. Ironsaturation down to 14% with low normal ferritin 36. Unsure if this is iron deficiency or another cause of anemia. We will replete with Injectafer 750 mg IV x2 weekly doses and repeat labs in 6 weeks. If persistent anemia despite replete iron stores, we may need to evaluate with bone marrow biopsy to exclude myelodysplastic syndrome. Patient expressed understanding. 04/23/2022: Patient has persistent anemia with hemoglobin 7.6 despite Injectafer last week. Iron saturation is still 12% with normal ferritin 77. She also has reticulocyte count of 1.2% which is hypoproliferative for her degree of anemia. She will receive another round of Injectafer 750 mg x 2 weekly doses with repeatlabs in 4 weeks. Epigastric pain evaluated with CT abdomen pelvis to rule out mass. Okay to stop her daily oral iron. 04/30/2022: Abdomen/Pelvis CT with no concerning finding. Will receive first Injectafer of 2 today. Reeval with CBC and iron studies with exam in one month. If normal iron stores with persistent low hemoglobin, consider bone marrow biopsy at that time. 05/28/2022: Improved but persistent macrocytic anemia with replete iron stores on followup labs. We will start folic acid 3mg po daily for low folate. She agrees if persistent anemia at 3 month followup she will reconsider bone marrow biopsy. She agrees with this plan. Low complexity followup over 25 minutes to review followup labs after iron infusion. 08/28/2022: Recurrent fatigue--no obvious rectal bleeding noted by patient on monthly Octreotide. Homocysteine level to assess response to folic acid and [id number] by insurance. Again has anemia 8.9 with iron sat 8.6%--agrees to repeat infusion of Injectafer 750mg IV x 2 weeks (has been getting this about once every 4 months). 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 Low complexity followup over 25 minutes to review followup labs and coordinate repeat iron infusions. 11/27/2022: She has recurrent symptoms of GRZEGORZ with fatigue, dyspnea and muscle cramping. No s/s of bleeding. Her labs reveal low iron with saturation 10.6%, ferritin 53 and hgb 7.3. We will plan for IV iron repletion in addition to her Octreotide injections. Follow-up will be in 2 months with repeat cbc, cmp, iron studies. She is in agreement with this plan and has no questions. (2) Folate deficiency anemia, unspecified Qualifiers: Folate deficiency anemia type: unspecified folate deficiency Qualified Code(s): D52.9 - Folate deficiency anemia, unspecified Persistent macrocytic anemia with folate deficiency by followup labs 05/25/2022. We added oral folate 3mg daily and ordered labs for 3 month methylmalonic acid and homocysteine at the time of repeat iron studies were declined by insurance. For now continue current supplementation. 11/27/2022: She continues on folic acid supplementation (3) Angiodysplasia of gastrointestinal tract Octreotide LAR 20mg IM every 28 days as noted above. 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 She denied increased bloody stools or black stools but continued to have decline in hemoglobin to 8.9 noted on labs 08/25/2022. Continue monthly octreotide LAR with further iron repletion (4) Atrial fibrillation status post cardioversion (5) COPD (chronic obstructive pulmonary disease) (6) Hypertension (7) Hypothyroidism - Time with Patient Time Spent with Patient (Follow Up Visit): 25 minutes - f/u labs and Injectafer infusions Coordination of Care & Counseling Time: Greater than 50% of time spent with patient was for coordination of care (as documented) and [id number] counseling of patient and/or family. Dictated By: Nusrat Bundy APRN DD/ 1028 Signed By: <Electronically signed by LELSY Bundy> 11/27/22 [address] [facility] Work Phone: [phone] Progress note Author Bell Camargo [facility] August 29, 2022 10:57am Note Date/Time August 28, 2022 10 :40am [facility] [place] [id number] Hem/Onc Follow Up Note - OP Signed Patient: Terri Newton MR#: [id number] : 1945 Acct:[id number] Age/Sex: 77 / F Type: REG RCR Copies to: MD Ceasar Ferrari, DO~ Subjective Date/Time of Service: Date of Service: 08/28/2022 Time of Service: 10:40 Chief Complaint: Patient is here for a 3 month follow up with outside labs for review. States she has been sick for 3 weeks and is just now feeling better. HPI: 08/28/2022: 3 month followup with recent increase in fatigue, but no bright red blood per rectum or melena. Maintains monthly Octreotide, no transfusions or hospitalizations. Labs reviewed from 08/25/2022: Hemoglobin currently low at 8.9, iron saturation 8.9% and ferritin normal 114. She continues oral B12/folicacid (insurance denies homocysteine test to determine if adequate replacement dosing). I will set up infusions of Injectafer 750mg IV x 2 weekly doses. 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 Low complexity 25 minute f/u visit. 05/27/2022: Terri presents for one month f/u to review labs after Injectafer. Notes improvement in fatigue and no new symptoms--denies bright red blood per rectum and continues monthly Octreotide LAR. Hemoglobin has improved from 7.4 to9.3 but still not normal. Iron sat improved from 18% to 29% and ferritin from 54.9 to 353. B12 elevated to 5312 but folate low at 8.3. Platelets still ok 228,000. I again offered bone marrow biopsy which she declined. Since she did have some improvement after iron infusions and still has low folate 8.3, I will have her take oral folate 3mg po monthly with f/u labs and visit in 3 months. If still anemic at that time, she will reconsider bone marrow biopsy. Low complexity followup 25 minutes. 05/01/2022: Terri is here for one week followup to start Injectafer. Her CT Abdomen/Pelvis showed no abnormality in area of epigastric pain and distension. We will reevaluate iron studies after completing Injectafer, continue monthly Octreotide LAR. If persistent anemia despite normal iron stores, we may recommend bone marrow biopsy for further workup at that time. The patient will f/u 1 month, low complexity 20 minute followup visit. 04/23/2022: Terri continues to have fatigue and dyspnea on exertion. Despite receiving Injectafer 2 infusions over 2 weeks in late February, her hemoglobin returned this week at 7.6. She denies any visible melena or bright red blood per rectum. She has continued octreotide monthly with no improvement of her symptoms. She continues to have gaseous distention and has stopped oral iron. We offered bone marrow aspiration and biopsy and she again declined this today. She is concerned with persistent epigastric pain and weight gain with some lowerextremity edema. She has not had a previous abdomen/pelvic CT and on exam she has mildly increased bowel sounds with epigastric fullness. We will follow-up results by phone and determine if further work-up is needed. I am placing another orders for Injectafer 750mg IV x 2 doses due to iron sat 12% with normalferritin 77. Repeat iron studies in 4 weeks. Moderate complexity visit 30 minutes for new symptoms. 03/05/2022: Terri notes worsening fatigue and dyspnea on exertion. Her most recent hemoglobin is down to 8.0. She has been taking octreotide LAR 20 mg IM monthly with gaseous distention and light stools but no abdominal pain. Iron studies show low iron saturation 14% with low normal ferritin 36.2. We are setting up iron infusions with Injectafer 750 mg IV x 2 doses over 2 weeks. If she has persistent anemia after repletion of iron stores we may need to considerbone marrow biopsy for other causes of anemia such as myelodysplastic syndrome. Patient is in agreement with this plan and follow-up in the next 6 weeks for review of iron studies and CBC. 12/04/2021: Terri is here for followup after initiating Octreotide LAR 20mg IM monthly with weekly CBC. 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 She notes improving energy and weekly CBC over the past month shows gradually increasing hemoglobin (11/04 Hg 10.7, 12/01/2021 Hg 11). She also had f/u iron studies 11/04/2021 with normal iron saturation 23.3% with ferritin 37. She will continue monthly Octreotide IM, and I will change CBC to monthly prior to Octreotide LAR and f/u with me 02/2022. PREVIOUS HISTORY: Original consult 10/30/2021 This is a now 77 year old lady who reported severe anemia, presenting in 06/2021with a hemoglobin of 2.7. She received 5 units RBC and was discharged with daily ferrous sulfate. She did not present with chest pain or dyspnea, but had profound fatigue. She did not report any melena or hematochezia. She returned in Aug 2021 with hemoglobin 6.6. She received 2 more units of RBC and has been followed with every 2 week CBC since that time on daily oral iron. She denies dyspepsia or constipation on oral iron. Past history of hysterectomy age 23, no history of heavy menstrual bleeding, bleeding with surgeries, . She was on hormonal therapy post hysterectomy for about 2 years only. No history of thromboembolic disease. + for chronic constipation, prior atrial fibrillation s/p cardioversion last year. Chronic anticoagulation stopped due to severe anemia and she is being evaluated for a Watchman procedure. She was evaluated with upper and lower endoscopy in late Aug 2021 with subsequent capsular endoscopy 09/2021 revealing multiple sites of vascular ectasia--Dr. Jimenez treated gastric, small bowel, and cecal AVMs with gold probe. Dr. Granados recommended consideration of Octreotide LAR to prevent recurrent bleeding due to angiodysplasia. We discussed potential adverse reactions of cholecystitis, allergic reactions, dyspepsia. She agrees to proceed. Will contact her with repeat CBC/iron studies and consider parenteral iron if recurrent iron deficiency anemia. DIAGNOSIS: 1. Iron deficiency anemia due to chronic blood loss 2. Multiple AVMs (angiodysplasia) of gastric, proximal small bowel and cecum 09/15/2021 EGD/colonoscopy 3. Atrial fibrillation 4. COPD, prior 50+ pack year smoker, quit 02/2021 - Summary of Therapies Summary of Therapies: Octreotide LAR 20mg IM monthly ordered for AVMs--starting 10/2021. 03/05/2022: Injectafer 750 mg IV x2 doses ordered for iron saturation 14%, hemoglobin 8 04/23/2022: Injectafer 750 mg IV x2 doses ordered for iron saturation 12%, hemoglobin 7.6--patient declines bone marrow biopsy for further evaluation 08/28/2022: Repeat Injectafer 750 mg IV x2 doses ordered for iron saturation 8.6%, hemoglobin 8.9 ROS Details: All systems reviewed & no additional complaints except as documented Subjective/ROS - Narrative: CONSTITUTIONAL: Recurrent fatigue since April 2022 Injectafer infusions, negative for fever or night sweats. HEAD AND NECK: Negative for changes in hearing and vision. Negative for mouth ulcers, nasal congestion and nasal drainage. PULMONARY: Negative for chest pain, cough and dyspnea. CARDIOVASCULAR: Negative for claudication and negative for irregular heartbeat/palpitations (improved after prior cardioversion). GASTROINTESTINAL: Improved epigastric abdominal pain, decreased appetite, and constipation having 1 bowel movement per day on MiraLAX. No diarrhea, nausea orvomiting. + for known AVM. Stable stools on octreotide, recent worsening anemia. GENITOURINARY: Negative for dysuria and hematuria. ENDOCRINE: Negative for cold intolerance and heat intolerance. CENTRAL NERVOUS SYSTEM: Negative for gait disturbance and headache. No focal neurologic deficits. PSYCHIATRIC: Negative for anxiety or depression. DERMATOLOGICAL: Negative for pruritus and rash. Negative for suspicious skin lesions. MUSCULOSKELETAL: Negative for back pain or other bone/joint symptoms. HEMATOLOGICAL: Negative for bleeding and easy bruising. Negative for history of thromboembolic disease. Multiple recent RBC transfusions (none prior to last year). ALLERGY: Negative for environmental allergies and food allergies. [facility] - History Attestation statement: The following information was validated with the patient. Source: Old Records Reviewed - Medical History Medical History: Medical History (Last Reviewed 08/29/22 @ 10:36 by Bell Camarog MD) Atrial fibrillation COPD (chronic obstructive pulmonary disease) Former smoker Hypothyroidism Iron deficiency anemia Kidney stones X 6 episodes Palpitations Pneumonia - Surgical History Surgical History: Surgical History (Last Reviewed 08/29/22 @ 10:36 by Bell Camargo MD) History of bladder suspension procedure History of hysterectomy History of tonsillectomy and adenoidectomy Hx of cholecystectomy - Family History Family History: Family History (Last Reviewed 08/29/22 @ 10:36 by Bell Camargo MD) Brother Fibromyalgia Heart disease Bone cancer Father Heart disease Myocardial infarct Sister Stroke Mother Suicide - Social History Smoking Status: Former smoker Tobacco Type: cigarettes Substance Use Type: None Home Medications & Allergies Allergies No Known Drug Allergies Allergy (Verified 05/28/22 11:14) Unknown Reaction Home Medications multivitamin 1 tab PO DAILY supplement 06/01/19 [History Confirmed 08/28/22] nitroglycerin 0.4 mg sublingual tablet 0.4 mg sublingual Q5-15M PRN Chest Pain 08/01/19 [History Confirmed 08/28/22] levothyroxine 88 mcg tablet 88 mcg PO DAILY 04/14/21 [History Confirmed 08/28/22] propafenone 150 mg tablet 150 mg PO Q8H 30 days #90 tabs 04/15/21 [Rx Confirmed 08/28/22] amlodipine 5 mg tablet 5 mg PO DAILY 09/15/21 [History Confirmed 08/28/22] furosemide 40 mg tablet 20 mg PO DAILY 09/15/21 [History Confirmed 08/28/22] methocarbamol 500 mg tablet 500 mg PO BID PRN Muscle Spasm 09/15/21 [History Confirmed 08/28/22] tramadol 50 mg tablet 50 mg PO BID PRN Back Pain 10/30/21 [History Confirmed 08/28/22] folic acid 1 mg tablet 3 mg PO DAILY 30 days #90 tabs 05/28/22 [Rx Confirmed 08/28/22] vitamin B12 500 mcg-folic acid 400 mcg tablet 1 tab PO DAILY 05/28/22 [History Confirmed 08/28/22] Objective - Height/Weight Height/Weight: Height 5 ft 4 in Weight 75.7 kg - Vital Signs Vital Signs: 08/28/22 10:33 Pulse Rate [Left Brachial] 60 Respiratory Rate 20 Blood Pressure [Left Arm] 130/69 02 Sat by Pulse Oximetry 100 Oxygen Delivery Method Room Air - Pain Back Pain Intensity: 6 Physical Exam Narrative: CONSTITUTIONAL: The patient is in no acute distress. HEAD / FACE: Normocephalic. EYES: Pupils are equal and reactive to light. Conjunctivae and lids are benign in appearance. Ocular movement intact. Positive mucosal pallor. EARS: Hearing grossly intact. NOSE / MOUTH / THROAT: Nose, mouth, tongue and oropharynx are benign in appearance. No signs of inflammation. NECK / THYROID: Neck is supple. Thyroid is symmetrical, without thyromegaly, masses or palpable nodules. LYMPHATIC: No palpable cervical, supraclavicular, axillary, or inguinal adenopathy. RESPIRATORY: Normal to inspection. Lungs clear to auscultation and percussion. No wheezing, rales, rhonchi or rubs. Normal effort. CARDIOVASCULAR: Regular rate and rhythm. No murmurs, gallops, or rubs. VASCULAR: Carotid, radial, femoral and pedal pulses present bilaterally. No bruits. ABDOMEN: Bowel sounds normoactive. Soft, nontender and non-distended. No hepatosplenomegaly. No masses. GENITOURINARY: No CVA tenderness. No suprapubic fullness or tenderness. No groinadenopathy. No evidence of hernias. INTEGUMENTARY: The skin is unremarkable. No rashes. No suspicious lesions BACK / SPINE: The back is nontender. MUSCULOSKELETAL: Normal musculature, no joint deformities or abnormalities, normal range of motion for all four extremities. EXTREMITIES: No edema, cyanosis or clubbing. No Coretta sign. NEUROLOGICAL: Alert and oriented. Cranial nerves intact. No gross motor or sensory deficits. PSYCHIATRIC: No anxiety or evidence of depression. - ECOG Performance Status ECOG Score: 1 Results - Labs Labs: Diagram of Most Recent CBC and CMP 04/30/22 11:14 04/30/22 11:14 Outside Labs: Labs reviewed from 08/25/2022 (from [facility]): Hemoglobin currently low at 8.9, iron saturation 8.9% and ferritin normal 114. She continues oral B12/folic acid (insurance denies homocysteine test to determine if adequate replacement dosing). - Impressions CT ABDOMEN AND PELVIS WITHOUT INTRAVENOUS CONTRAST: CLINICAL HISTORY: Constipation, bloating, weight gain for several months COMPARISON: None TECHNIQUE: Spiral images were obtained through the abdomen and pelvis without intravenous contrast. This CT exam was performed using one or more following dose reduction techniques: Automated exposure control, adjustment of the mA and/or kV according to patient size, or use of iterative reconstruction technique. FINDINGS: Lung Bases: Mitral valve calcification. Minimal atelectasis/scarring. Organs:Suboptimal evaluation due to lack of IV contrast. Gallbladder has been removed. Splenic granulomas. Liver pancreas and adrenal glands appear unremarkable. Cystic changes involving the kidneys. Abdominal aorta demonstrates moderate calcification without aneurysm. GI: Stomach is grossly unremarkable. Small bowel appears nondilated. Colonic diverticulosis. Pelvis:Urinary bladder is grossly unremarkable. Uterus has been removed. No adnexal mass. Peritoneum/Retroperitoneum:No free air or free fluid. No lymphadenopathy. Abd wall/Bones:Abdominal wall demonstrates no acute findings. Osseous structures demonstrate degenerative change. CT/CT abdomen pelvis wo con IMPRESSION: No acute process. Impression dictated by: Marcel Grossman Jr., D.OAngelica04/30/2022 4:40 PM Assessment and Plan (1) Iron deficiency anemia Qualifiers: Iron deficiency anemia type: chronic blood loss Qualified Code(s): D50.0 - Iron deficiency anemia secondary to blood loss (chronic) This is a 77 year old lady who had severe iron deficiency anemia in late 2020, continued moderate anemia with EGD/colonoscopy/capsular endoscopy showing AVM/angiodysplasia. These lesions were treated with gold probe, but due to multiple lesions Dr. Granados recommended trial of Octreotide LAR 20mg IM monthly to decrease frequency of transfusions and hospitalizations due to severe anemia. Iexplained the pathophysiology of AVMs contributing to iron deficiency and she agrees to proceed. If she still has low iron stores on repeat testing despite daily oral ferrous sulfate, we will set up parenteral iron. Will f/u with me toreassess response to iron and octreotide and determine frequency of CBCs and iron infusions (for now, continue q2w CBC). 12/04/2021: Here for one month followup after starting Octreotide LAR 20mg IM monthly and oral iron. Iron saturation and ferritin are normal on 11/04/2021 labs. Energy and hemoglobin have continued to improve. Continue now monthly CBC with Octreotide LAR and f/u with me in 3 months with iron profile deferred unless recurrent symptomatic anemia. 03/05/2022: Patient has worsening fatigue and hemoglobin has declined to 8. Ironsaturation down to 14% with low normal ferritin 36. Unsure if this is iron deficiency or another cause of anemia. We will replete with Injectafer 750 mg IV x2 weekly doses and repeat labs in 6 weeks. If persistent anemia despite replete iron stores, we may need to evaluate with bone marrow biopsy to exclude myelodysplastic syndrome. Patient expressed understanding. 04/23/2022: Patient has persistent anemia with hemoglobin 7.6 despite Injectafer last week. Iron saturation is still 12% with normal ferritin 77. She also has reticulocyte count of 1.2% which is hypoproliferative for her degree of anemia. She will receive another round of Injectafer 750 mg x 2 weekly doses with repeatlabs in 4 weeks. Epigastric pain evaluated with CT abdomen pelvis to rule out mass. Okay to stop her daily oral iron. 04/30/2022: Abdomen/Pelvis CT with no concerning finding. Will receive first Injectafer of 2 today. Reeval with CBC and iron studies with exam in one month. If normal iron stores with persistent low hemoglobin, consider bone marrow biopsy at that time. 05/28/2022: Improved but persistent macrocytic anemia with replete iron stores on followup labs. We will start folic acid 3mg po daily for low folate. She agrees if persistent anemia at 3 month followup she will reconsider bone marrow biopsy. She agrees with this plan. Low complexity followup over 25 minutes to review followup labs after iron infusion. 08/28/2022: Recurrent fatigue--no obvious rectal bleeding noted by patient on monthly Octreotide. Homocysteine level to assess response to folic acid and [id number] by insurance. Again has anemia 8.9 with iron sat 8.6%--agrees to repeat infusion of Injectafer 750mg IV x 2 weeks (has been getting this about once every 4 months). 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 Low complexity followup over 25 minutes to review followup labs and coordinate repeat iron infusions. (2) Folate deficiency anemia, unspecified Qualifiers: Folate deficiency anemia type: unspecified folate deficiency Qualified Code(s): D52.9 - Folate deficiency anemia, unspecified Persistent macrocytic anemia with folate deficiency by followup labs 05/25/2022. We added oral folate 3mg daily and ordered labs for 3 month methylmalonic acid and homocysteine at the time of repeat iron studies were declined by insurance. For now continue current supplementation. (3) Angiodysplasia of gastrointestinal tract Octreotide LAR 20mg IM every 28 days as noted above. 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 She denied increased bloody stools or black stools but continued to have decline in hemoglobin to 8.9 noted on labs 08/25/2022. Continuemonthly octreotide LAR with further iron repletion (4) Atrial fibrillation status post cardioversion (5) COPD (chronic obstructive pulmonary disease) (6) Hypertension (7) Hypothyroidism - Time with Patient Time Spent with Patient (Follow Up Visit): 25 minutes - f/u labs and Injectafer infusions Coordination of Care & Counseling Time: Greater than 50% of time spent with patient was for coordination of care (as documented) and [id number] counseling of patient and/or family. Dictated By: Bell Camargo MD DD/ [id number] Signed By: <Electronically signed by MD Bell Camargo> 08/29/22 10[address] [facility] Work Phone: [phone] 836-421310-28-2022 Evaluation note* Encounter Date Diagnosis Assessment Notes Treatment Notes Treatment Clinical Notes May, Alternating constipation and diarrhea (ICD-10 - R19.8) Patient is encouraged to titrate the miralax until she does find the right dose to keep her bowels moving but not to far into diarrhea. May, Gas (ICD-10 - R14.3) patient is encouraged to use the Gas-x to help break up the gas bubbles. May, Fullness of abdomen (ICD-10 - R19.8) patient reassured this feeling could bt from the excess stool Runfaces Other 10-07-2022 Progress note Author Bell Camargo [facility] May 29, 2022 7:40am Note Date/Time May 28, 2022 11 :18am [facility] at [address] [address] Hem/Onc Follow Up Note - OP Signed Patient: Terri Newton MR#: [id number] : 1945 Acct:[id number] Age/Sex: 77 / F Type: REG RCR Copies to: MD Ceasar Ferrari Markell, ~ Subjective Date/Time of Service: Date of Service: 05/28/2022 Time of Service: 11:17 Chief Complaint: Patient is here today for 1 month follow up visit for iron deficiency anemia and go over outside labs HPI: 05/27/2022: Terri presents for one month f/u to review labs after Injectafer. Notes improvement in fatigue and no new symptoms--denies bright red blood per rectum and continues monthly Octreotide LAR. Hemoglobin has improved from 7.4 to 9.3 but still not normal. Iron sat improved from 18% to 29% and ferritin from 54.9 to 353. B12 elevated to 5312 but folate low at 8.3. Platelets still ok 228,000. I again offered bone marrow biopsy which she declined. Since she did have some improvement after iron infusions and still has low folate 8.3, I will have her take oral folate 3mg po monthly with f/u labs and visit in 3 months. If still anemic at that time, she will reconsider bone marrow biopsy. Low complexity followup 25 minutes. 05/01/2022: Terri is here for one week followup to start Injectafer. Her CT Abdomen/Pelvis showed no abnormality in area of epigastric pain and distension. We will reevaluate iron studies after completing Injectafer, continue monthly Octreotide LAR. If persistent anemia despite normal iron stores, we may recommend bone marrow biopsy for further workup at that time. The patient will f/u 1 month, low complexity 20 minute followup visit. 04/23/2022: Terri continues to have fatigue and dyspnea on exertion. Despite receiving Injectafer 2 infusions over 2 weeks in late February, her hemoglobin returned this week at 7.6. She denies any visible melena or bright red blood per rectum. She has continued octreotide monthly with no improvement of her symptoms. She continues to have gaseous distention and has stopped oral iron. We offered bone marrow aspiration and biopsy and she again declined this today. She is concerned with persistent epigastric pain and weight gain with some lowerextremity edema. She has not had a previous abdomen/pelvic CT and on exam she has mildly increased bowel sounds with epigastric fullness. We will follow-up results by phone and determine if further work-up is needed. I am placing another orders for Injectafer 750mg IV x 2 doses due to iron sat 12% with normalferritin 77. Repeat iron studies in 4 weeks. Moderate complexity visit 30 minutes for new symptoms. 03/05/2022: Terri notes worsening fatigue and dyspnea on exertion. Her most recent hemoglobin is down to 8.0. She has been taking octreotide LAR 20 mg IM monthly with gaseous distention and light stools but no abdominal pain. Iron studies show low iron saturation 14% with low normal ferritin 36.2. We are setting up iron infusions with Injectafer 750 mg IV x 2 doses over 2 weeks. If she has persistent anemia after repletion of iron stores we may need to considerbone marrow biopsy for other causes of anemia such as myelodysplastic syndrome. Patient is in agreement with this plan and follow-up in the next 6 weeks for review of iron studies and CBC. 12/04/2021: Terri is here for followup after initiating Octreotide LAR 20mg IM monthly with weekly CBC. 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 She notes improving energy and weekly CBC over the past month shows gradually increasing hemoglobin (11/04 Hg 10.7, 12/01/2021 Hg 11). She also had f/u iron studies 11/04/2021 with normal iron saturation 23.3% with ferritin 37. She will continue monthly Octreotide IM, and I will change CBC to monthly prior to Octreotide LAR and f/u with me 02/2022. PREVIOUS HISTORY: Original consult 10/30/2021 This is a 76 year old lady who reported severe anemia, presenting in 06/2021 with a hemoglobin of 2.7. She received 5 units RBC and was discharged with daily ferrous sulfate. She did not present with chest pain or dyspnea, but had profound fatigue. She did not report any melena or hematochezia. She returned in Aug 2021 with hemoglobin 6.6. She received 2 more units of RBC and has been followed with every 2 week CBC since that time on daily oral iron. She denies dyspepsia or constipation on oral iron. Past history of hysterectomy age 23, no history of heavy menstrual bleeding, bleeding with surgeries, . She was on hormonal therapy post hysterectomy for about 2 years only. No history of thromboembolic disease. + for chronic constipation, prior atrial fibrillation s/p cardioversion last year. Chronic anticoagulation stopped due to severe anemia and she is being evaluated for a Watchman procedure. She was evaluated with upper and lower endoscopy in late Aug 2021 with subsequent capsular endoscopy 09/2021 revealing multiple sites of vascular ectasia--Dr. Jimenez treated gastric, small bowel, and cecal AVMs with gold probe. Dr. Granados recommended consideration of Octreotide LAR to prevent recurrent bleeding due to angiodysplasia. We discussed potential adverse reactions of cholecystitis, allergic reactions, dyspepsia. She agrees to proceed. Will contact her with repeat CBC/iron studies and consider parenteral iron if recurrent iron deficiency anemia. DIAGNOSIS: 1. Iron deficiency anemia due to chronic blood loss 2. Multiple AVMs (angiodysplasia) of gastric, proximal small bowel and cecum 09/15/2021 EGD/colonoscopy 3. Atrial fibrillation 4. COPD, prior 50+ pack year smoker, quit 02/2021 - Summary of Therapies Summary of Therapies: Octreotide LAR 20mg IM monthly ordered for AVMs--starting 10/2021. 03/05/2022: Injectafer 750 mg IV x2 doses ordered for iron saturation 14%, hemoglobin 8 04/23/2022: Injectafer 750 mg IV x2 doses ordered for iron saturation 12%, hemoglobin 7.6--patient declines bone marrow biopsy for further evaluation ROS Details: All systems reviewed & no additional complaints except as documented Subjective/ROS - Narrative: CONSTITUTIONAL: Improved fatigue since April Injectafer infusions, negative for fever or night sweats. HEAD AND NECK: Negative for changes in hearing and vision. Negative for mouth ulcers, nasal congestion and nasal drainage. PULMONARY: Negative for chest pain, cough and dyspnea. CARDIOVASCULAR: Negative for claudication and negative for irregular heartbeat/palpitations (improved after prior cardioversion). GASTROINTESTINAL: Improved epigastric abdominal pain, decreased appetite, and constipation having 1 bowel movement per day on MiraLAX. No diarrhea, nausea orvomiting. + for known AVM. Stable stools on octreotide, recent worsening anemia. GENITOURINARY: Negative for dysuria and hematuria. ENDOCRINE: Negative for cold intolerance and heat intolerance. CENTRAL NERVOUS SYSTEM: Negative for gait disturbance and headache. No focal neurologic deficits. PSYCHIATRIC: Negative for anxiety or depression. DERMATOLOGICAL: Negative for pruritus and rash. Negative for suspicious skin lesions. MUSCULOSKELETAL: Negative for back pain or other bone/joint symptoms. HEMATOLOGICAL: Negative for bleeding and easy bruising. Negative for history of thromboembolic disease. Multiple recent RBC transfusions (none prior to last year). ALLERGY: Negative for environmental allergies and food allergies. [facility] - History Attestation statement: The following information was validated with the patient. Source: Old Records Reviewed - Medical History Medical History: Medical History (Last Reviewed 05/29/22 @ 06:30 by Bell Camargo MD) Atrial fibrillation COPD (chronic obstructive pulmonary disease) Former smoker Hypothyroidism Iron deficiency anemia Kidney stones X 6 episodes Palpitations Pneumonia - Surgical History Surgical History: Surgical History (Last Reviewed 05/29/22 @ 06:30 by Bell Camargo MD) History of bladder suspension procedure History of hysterectomy History of tonsillectomy and adenoidectomy Hx of cholecystectomy - Family History Family History: Family History (Last Reviewed 05/29/22 @ 06:30 by Bell Camargo MD) Brother Fibromyalgia Heart disease Bone cancer Father Heart disease Myocardial infarct Sister Stroke Mother Suicide - Social History Smoking Status: Former smoker Tobacco Type: cigarettes Substance Use Type: None Home Medications & Allergies Allergies No Known Drug Allergies Allergy (Verified 05/28/22 11:14) Unknown Reaction Home Medications multivitamin 1 tab PO DAILY supplement 06/01/19 [History Confirmed 05/28/22] nitroglycerin 0.4 mg sublingual tablet 0.4 mg sublingual Q5-15M PRN Chest Pain 08/01/19 [History Confirmed 05/28/22] levothyroxine 88 mcg tablet 88 mcg PO DAILY 04/14/21 [History Confirmed 05/28/22] propafenone 150 mg tablet 150 mg PO Q8H 30 days #90 tabs 04/15/21 [Rx Confirmed 05/28/22] amlodipine 5 mg tablet 5 mg PO DAILY 09/15/21 [History Confirmed 05/28/22] furosemide 40 mg tablet 20 mg PO DAILY 09/15/21 [History Confirmed 05/28/22] methocarbamol 500 mg tablet 500 mg PO BID PRN Muscle Spasm 09/15/21 [History Confirmed 05/28/22] tramadol 50 mg tablet 50 mg PO BID PRN Back Pain 10/30/21 [History Confirmed 05/28/22] folic acid 1 mg tablet 3 mg PO DAILY 30 days #90 tabs 05/28/22 [Rx] vitamin B12 500 mcg-folic acid 400 mcg tablet 1 tab PO DAILY 05/28/22 [History Confirmed 05/28/22] Objective - Height/Weight Height/Weight: Height 5 ft 4 in Weight 73.028 kg - Vital Signs Vital Signs: 05/28/22 11:14 Temperature 97.5 F L Pulse Rate [Left Brachial] 55 L Respiratory Rate 16 Blood Pressure [Left Arm] 147/75 H 02 Sat by Pulse Oximetry 98 Oxygen Delivery Method Room Air - Pain Back Pain Intensity: 6 Physical Exam Narrative: CONSTITUTIONAL: The patient is in no acute distress. HEAD / FACE: Normocephalic. EARS: Hearing grossly intact. Full exam deferred, see exam below from 04/23/2022. EYES: Pupils are equal and reactive to light. Conjunctivae and lids are benign in appearance. Ocular movement intact. Positive mucosal pallor. NOSE / MOUTH / THROAT: Nose, mouth, tongue and oropharynx are benign in appearance. No signs of inflammation. NECK / THYROID: Neck is supple. Thyroid is symmetrical, without thyromegaly, masses or palpable nodules. LYMPHATIC: No palpable cervical, supraclavicular, axillary, or inguinal adenopathy. RESPIRATORY: Normal to inspection. Lungs clear to auscultation and percussion. No wheezing, rales, rhonchi or rubs. Normal effort. CARDIOVASCULAR: Regular rate and rhythm. No murmurs, gallops, or rubs. VASCULAR: Carotid, radial, femoral and pedal pulses present bilaterally. No bruits. ABDOMEN: Bowel sounds normoactive. Soft, nontender and non-distended. No hepatosplenomegaly. No masses. GENITOURINARY: No CVA tenderness. No suprapubic fullness or tenderness. No groinadenopathy. No evidence of hernias. INTEGUMENTARY: The skin is unremarkable. No rashes. No suspicious lesions BACK / SPINE: The back is nontender. MUSCULOSKELETAL: Normal musculature, no joint deformities or abnormalities, normal range of motion for all four extremities. EXTREMITIES: No edema, cyanosis or clubbing. No Coretta sign. NEUROLOGICAL: Alert and oriented. Cranial nerves intact. No gross motor or sensory deficits. PSYCHIATRIC: No anxiety or evidence of depression. - ECOG Performance Status ECOG Score: 1 Results - Labs Labs: Diagram of Most Recent CBC and CMP 04/30/22 11:14 04/30/22 11:14 Outside Labs: Labs from [facility] 05/25/2022: WBC 4400, ANC 2500, Hg 9.6, Hct 30.8, MCV 104.8, Platelets 228, retic 3.02% Iron sat 29.1%, Ferritin 353, B12 3512, Folate 8.2 - Impressions No new imaging for review Assessment and Plan (1) Iron deficiency anemia Qualifiers: Iron deficiency anemia type: chronic blood loss Qualified Code(s): D50.0 - Iron deficiency anemia secondary to blood loss (chronic) This is a 77 year old lady who had severe iron deficiency anemia in late 2020, continued moderate anemia with EGD/colonoscopy/capsular endoscopy showing AVM/angiodysplasia. These lesions were treated with gold probe, but due to multiple lesions Dr. Granados recommended trial of Octreotide LAR 20mg IM monthly to decrease frequency of transfusions and hospitalizations due to severe anemia. I explained the pathophysiology of AVMs contributing to iron deficiency and sheagrees to proceed. If she still has low iron stores on repeat testing despite daily oral ferrous sulfate, we will set up parenteral iron. Will f/u with me toreassess response to iron and octreotide and determine frequency of CBCs and iron infusions (for now, continue q2w CBC). 12/04/2021: Here for one month followup after starting Octreotide LAR 20mg IM monthly and oral iron. Iron saturation and ferritin are normal on 11/04/2021 labs. Energy and hemoglobin have continued to improve. Continue now monthly CBC with Octreotide LAR and f/u with me in 3 months with iron profile deferred unless recurrent symptomatic anemia. 03/05/2022: Patient has worsening fatigue and hemoglobin has declined to 8. Ironsaturation down to 14% with low normal ferritin 36. Unsure if this is iron deficiency or another cause of anemia. We will replete with Injectafer 750 mg IV x2 weekly doses and repeat labs in 6 weeks. If persistent anemia despite replete iron stores, we may need to evaluate with bone marrow biopsy to exclude myelodysplastic syndrome. Patient expressed understanding. 04/23/2022: Patient has persistent anemia with hemoglobin 7.6 despite Injectafer last week. Iron saturation is still 12% with normal ferritin 77. She also has reticulocyte count of 1.2% which is hypoproliferative for her degree of anemia. She will receive another round of Injectafer 750 mg x 2 weekly doses with repeatlabs in 4 weeks. Epigastric pain evaluated with CT abdomen pelvis to rule out mass. Okay to stop her daily oral iron. 04/30/2022: Abdomen/Pelvis CT with no concerning finding. Will receive first Injectafer of 2 today. Reeval with CBC and iron studies with exam in one month. If normal iron stores with persistent low hemoglobin, consider bone marrow biopsy at that time. 05/28/2022: Improved but persistent macrocytic anemia with replete iron stores on followup labs. We will start folic acid 3mg po daily for low folate. She agrees if persistent anemia at 3 month followup she will reconsider bone marrow biopsy. She agrees with this plan. Low complexity followup over 25 minutes to review followup labs after iron infusion. (2) Folate deficiency anemia, unspecified Qualifiers: Folate deficiency anemia type: unspecified folate deficiency Qualified Code(s): D52.9 - Folate deficiency anemia, unspecified Persistent macrocytic anemia with folate deficiency by followup labs 05/25/2022. Will add oral folate 3mg daily and followup with 3 month CBC with methylmalonic acid, homocysteine at the time of repeat iron studies. (3) Angiodysplasia of gastrointestinal tract Octreotide LAR 20mg IM every 28 days as noted above. 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 She denied increased bloody stoolsor black stools but continued to have decline in hemoglobin to 7.6 noted on labs04/17/2022. Continue monthly octreotide LAR. Iron stores now replete. (4) Atrial fibrillation status post cardioversion Rate controlled, followup primary care. (5) COPD (chronic obstructive pulmonary disease) (6) Hypertension (7) Hypothyroidism - Time with Patient Time Spent with Patient (Follow Up Visit): Less than 20 minutes - f/u labs and abdominal distention/pain symptoms, normal CT Abdomen/Pelvis, Injectafer infusions Coordination of Care & Counseling Time: Greater than 50% of time spent with patient was for coordination of care (as documented) and [id number] counseling of patient and/or family. Dictated By: Bell Camargo MD DD/ [id number] Signed By: <Electronically signed by MD Bell Camargo> 05/29/22 0740 [facility] Work Phone: [phone]) 419-225109-10-2022 Progress note Author Bell Camargo [facility] May 02, 2022 11:39am Note Date/Time May 01, 2022 11:01am [facility] at [address] [address] Hem/Onc Follow Up Note - OP Signed Patient: Terri Newton MR#: [id number] : 1945 Acct:[id number] Age/Sex: 77 / F Type: REG RCR Copies to: MD Ceasar Ferrari, DO~ Subjective Date/Time of Service: Date of Service: 05/01/2022 Time of Service: 11:00 Chief Complaint: Patient is here today for one week follow up visit and go over CT scans and labs HPI: 05/01/2022: Terri is here for one week followup to start Injectafer. Her CT Abdomen/Pelvis showed no abnormality in area of epigastric pain and distension. We will reevaluate iron studies after completing Injectafer, continue monthly Octreotide LAR. If persistent anemia despite normal iron stores, we may recommend bone marrow biopsy for further workup at that time. The patient will f/u 1 month, low complexity 20 minute followup visit. 04/23/2022: Terri continues to have fatigue and dyspnea on exertion. Despite receiving Injectafer 2 infusions over 2 weeks in late February, her hemoglobin returned this week at 7.6. She denies any visible melena or bright red blood per rectum. She has continued octreotide monthly with no improvement of her symptoms. She continues to have gaseous distention and has stopped oral iron. We offered bone marrow aspiration and biopsy and she again declined this today. She is concerned with persistent epigastric pain and weight gain with some lowerextremity edema. She has not had a previous abdomen/pelvic CT and on exam she has mildly increased bowel sounds with epigastric fullness. We will follow-up results by phone and determine if further work-up is needed. I am placing another orders for Injectafer 750mg IV x 2 doses due to iron sat 12% with normalferritin 77. Repeat iron studies in 4 weeks. Moderate complexity visit 30 minutes for new symptoms. 03/05/2022: Terri notes worsening fatigue and dyspnea on exertion. Her most recent hemoglobin is down to 8.0. She has been taking octreotide LAR 20 mg IM monthly with gaseous distention and light stools but no abdominal pain. Iron studies show low iron saturation 14% with low normal ferritin 36.2. We are setting up iron infusions with Injectafer 750 mg IV x 2 doses over 2 weeks. If she has persistent anemia after repletion of iron stores we may need to considerbone marrow biopsy for other causes of anemia such as myelodysplastic syndrome. Patient is in agreement with this plan and follow-up in the next 6 weeks for review of iron studies and CBC. 12/04/2021: Terri is here for followup after initiating Octreotide LAR 20mg IM monthly with weekly CBC. 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 She notes improving energy and weekly CBC over the past month shows gradually increasing hemoglobin (11/04 Hg 10.7, 12/01/2021 Hg 11). She also had f/u iron studies 11/04/2021 with normal iron saturation 23.3% with ferritin 37. She will continue monthly Octreotide IM, and I will change CBC to monthly prior to Octreotide LAR and f/u with me 02/2022. PREVIOUS HISTORY: Original consult 10/30/2021 This is a 76 year old lady who reported severe anemia, presenting in 06/2021 with a hemoglobin of 2.7. She received 5 units RBC and was discharged with daily ferrous sulfate. She did not present with chest pain or dyspnea, but had profound fatigue. She did not report any melena or hematochezia. She returned in Aug 2021 with hemoglobin 6.6. She received 2 more units of RBC and has been followed with every 2 week CBC since that time on daily oral iron. She denies dyspepsia or constipation on oral iron. Past history of hysterectomy age 23, no history of heavy menstrual bleeding, bleeding with surgeries, . She was on hormonal therapy post hysterectomy for about 2 years only. No history of thromboembolic disease. + for chronic constipation, prior atrial fibrillation s/p cardioversion last year. Chronic anticoagulation stopped due to severe anemia and she is being evaluated for a Watchman procedure. She was evaluated with upper and lower endoscopy in late Aug 2021 with subsequent capsular endoscopy 09/2021 revealing multiple sites of vascular ectasia--Dr. Jimenez treated gastric, small bowel, and cecal AVMs with gold probe. Dr. Granados recommended consideration of Octreotide LAR to prevent recurrent bleeding due to angiodysplasia. We discussed potential adverse reactions of cholecystitis, allergic reactions, dyspepsia. She agrees to proceed. Will contact her with repeat CBC/iron studies and consider parenteral iron if recurrent iron deficiency anemia. DIAGNOSIS: 1. Iron deficiency anemia due to chronic blood loss 2. Multiple AVMs (angiodysplasia) of gastric, proximal small bowel and cecum 09/15/2021 EGD/colonoscopy 3. Atrial fibrillation 4. COPD, prior 50+ pack year smoker, quit 02/2021 - Summary of Therapies Summary of Therapies: Octreotide LAR 20mg IM monthly ordered for AVMs--starting 10/2021. 03/05/2022: Injectafer 750 mg IV x2 doses ordered for iron saturation 14%, hemoglobin 8 04/23/2022: Injectafer 750 mg IV x2 doses ordered for iron saturation 12%, hemoglobin 7.6--patient declines bone marrow biopsy for further evaluation ROS Details: All systems reviewed & no additional complaints except as documented Subjective/ROS - Narrative: CONSTITUTIONAL: Worsening fatigue over the last 3 months, negative for fever or night sweats. HEAD AND NECK: Negative for changes in hearing and vision. Negative for mouth ulcers, nasal congestion and nasal drainage. PULMONARY: Negative for chest pain, cough and dyspnea. CARDIOVASCULAR: Negative for claudication and negative for irregular heartbeat/palpitations (improved after prior cardioversion). GASTROINTESTINAL: Positive for new persistent epigastric abdominal pain, decreased appetite, and constipation having 1 bowel movement per day on MiraLAX. No diarrhea, nausea or vomiting. + for known AVM. Stable stools on octreotide, recent worsening anemia. GENITOURINARY: Negative for dysuria and hematuria. ENDOCRINE: Negative for cold intolerance and heat intolerance. CENTRAL NERVOUS SYSTEM: Negative for gait disturbance and headache. No focal neurologic deficits. PSYCHIATRIC: Negative for anxiety or depression. DERMATOLOGICAL: Negative for pruritus and rash. Negative for suspicious skin lesions. MUSCULOSKELETAL: Negative for back pain and bone/joint symptoms. HEMATOLOGICAL: Negative for bleeding and easy bruising. Negative for history of thromboembolic disease. Multiple recent RBC transfusions (none prior to last year). ALLERGY: Negative for environmental allergies and food allergies. [facility] - History Attestation statement: The following information was validated with the patient. Source: Old Records Reviewed - Medical History Medical History: Medical History (Last Reviewed 05/02/22 @ 11:32 by Bell Camargo MD) Atrial fibrillation COPD (chronic obstructive pulmonary disease) Former smoker Hypothyroidism Iron deficiency anemia Kidney stones X 6 episodes Palpitations Pneumonia - Surgical History Surgical History: Surgical History (Last Reviewed 05/02/22 @ 11:32 by Bell Camargo MD) History of bladder suspension procedure History of hysterectomy History of tonsillectomy and adenoidectomy Hx of cholecystectomy - Family History Family History: Family History (Last Reviewed 05/02/22 @ 11:32 by Bell Camargo MD) Brother Fibromyalgia Heart disease Bone cancer Father Heart disease Myocardial infarct Sister Stroke Mother Suicide - Social History Smoking Status: Former smoker Tobacco Type: cigarettes Substance Use Type: None Home Medications & Allergies Allergies No Known Drug Allergies Allergy (Verified 05/01/22 10:45) Unknown Reaction Home Medications multivitamin 1 tab PO DAILY supplement 06/01/19 [History Confirmed 05/01/22] nitroglycerin 0.4 mg sublingual tablet 0.4 mg sublingual Q5-15M PRN Chest Pain 08/01/19 [History Confirmed 05/01/22] levothyroxine 88 mcg tablet 88 mcg PO DAILY 04/14/21 [History Confirmed 05/01/22] propafenone 150 mg tablet 150 mg PO Q8H 30 days #90 tabs 04/15/21 [Rx Confirmed 05/01/22] amlodipine 5 mg tablet 5 mg PO DAILY 09/15/21 [History Confirmed 05/01/22] furosemide 40 mg tablet 20 mg PO DAILY 09/15/21 [History Confirmed 05/01/22] methocarbamol 500 mg tablet 500 mg PO BID PRN Muscle Spasm 09/15/21 [History Confirmed 05/01/22] tramadol 50 mg tablet 50 mg PO BID PRN Back Pain 10/30/21 [History Confirmed 05/01/22] Objective - Height/Weight Height/Weight: Height 5 ft 4 in Weight 74.389 kg - Vital Signs Vital Signs: 05/01/22 10:46 Temperature 97.8 F Pulse Rate [Left Brachial] 52 L Respiratory Rate 16 Blood Pressure [Left Arm] 119/60 02 Sat by Pulse Oximetry 100 Oxygen Delivery Method Room Air - Pain Back Pain Intensity: 6 Physical Exam Narrative: CONSTITUTIONAL: The patient is in no acute distress. HEAD / FACE: Normocephalic. EARS: Hearing grossly intact. Full exam deferred, see exam below from 04/23/2022. EYES: Pupils are equal and reactive to light. Conjunctivae and lids are benign in appearance. Ocular movement intact. Positive mucosal pallor. NOSE / MOUTH / THROAT: Nose, mouth, tongue and oropharynx are benign in appearance. No signs of inflammation. NECK / THYROID: Neck is supple. Thyroid is symmetrical, without thyromegaly, masses or palpable nodules. LYMPHATIC: No palpable cervical, supraclavicular, axillary, or inguinal adenopathy. RESPIRATORY: Normal to inspection. Lungs clear to auscultation and percussion. No wheezing, rales, rhonchi or rubs. Normal effort. CARDIOVASCULAR: Regular rate and rhythm. No murmurs, gallops, or rubs. VASCULAR: Carotid, radial, femoral and pedal pulses present bilaterally. No bruits. ABDOMEN: Bowel sounds normoactive. Soft, nontender and non-distended. No hepatosplenomegaly. No masses. GENITOURINARY: No CVA tenderness. No suprapubic fullness or tenderness. No groinadenopathy. No evidence of hernias. INTEGUMENTARY: The skin is unremarkable. No rashes. No suspicious lesions BACK / SPINE: The back is nontender. MUSCULOSKELETAL: Normal musculature, no joint deformities or abnormalities, normal range of motion for all four extremities. EXTREMITIES: No edema, cyanosis or clubbing. No Coretta sign. NEUROLOGICAL: Alert and oriented. Cranial nerves intact. No gross motor or sensory deficits. PSYCHIATRIC: No anxiety or evidence of depression. - ECOG Performance Status ECOG Score: 2 Results - Labs Labs: Diagram of Most Recent CBC and CMP 04/30/22 11:14 04/30/22 11:14 Labs - Last 7 Days 04/30/22 11:14: PHA Creatinine Clear 22.37, Sodium 137, Potassium 4.3, Chloride 101, Carbon Dioxide 28.2, Anion Gap 12.1, BUN 44 H, Creatinine 2.12 H, Est GFR ( Amer) 27, Est GFR (Non-Af Amer) 23, Glucose 102 H, Calcium 8.8, Total Bilirubin 0.7, AST 17, ALT 10, Alkaline Phosphatase 57, Total Protein 6.6, Albumin 3.6, Globulin 3.0, Albumin/Globulin Ratio 1.2 04/30/22 11:14: PHA Creatinine Clear 21.95, Sodium 139, Potassium 4.7, Chloride 100, Carbon Dioxide 27.7, Anion Gap 16.0 H, BUN 43 H, Creatinine 2.16 H, Est GFR( Amer) 27, Est GFR (Non-Af Amer) 22, Glucose 98, Calcium 8.9, Iron 65, TIBC 344, Iron Saturation 18.0 L, Transferrin 246, Ferritin 54.9, Total Bilirubin 0.7, AST 17, ALT 10, Alkaline Phosphatase 57, Total Protein 6.1, Albumin 3.6, Globulin 2.5, Albumin/Globulin Ratio 1.4 04/30/22 11:14: Corrected WBC 3.4 L, Uncorrected WBC Count 3.4 L, RBC 2.36 L, Hgb 7.4 L, Hct 23.2 L, MCV 98.5, MCH 31.6, MCHC 32.1, RDW 17.0 H, Plt Count 332,MPV 8.1, Neut % (Auto) 49.3, Lymph % (Auto) 29.7, [place] % (Auto) 7.3, Eos % (Auto) 11.9, Baso % (Auto) 1.8, Neut # (Auto) 1.7 L, Lymph # (Auto) 1.0, [place] # (Auto) 0.2, Eos # (Auto) 0.4, Baso # (Auto) 0.1, Nucleated RBC % (auto) 0.1 - Impressions CT ABDOMEN AND PELVIS WITHOUT INTRAVENOUS CONTRAST: CLINICAL HISTORY: Constipation, bloating, weight gain for several months COMPARISON: None TECHNIQUE: Spiral images were obtained through the abdomen and pelvis without intravenous contrast. This CT exam was performed using one or more following dose reduction techniques: Automated exposure control, adjustment of the mA and/or kV according to patient size, or use of iterative reconstruction technique. FINDINGS: Lung Bases: Mitral valve calcification. Minimal atelectasis/scarring. Organs:Suboptimal evaluation due to lack of IV contrast. Gallbladder has been removed. Splenic granulomas. Liver pancreas and adrenal glands appear unremarkable. Cystic changes involving the kidneys. Abdominal aorta demonstrates moderate calcification without aneurysm.[ GI: Stomach is grossly unremarkable. Small bowel appears nondilated. Colonic diverticulosis. Pelvis:Urinary bladder is grossly unremarkable. Uterus has been removed. No adnexal mass. Peritoneum/Retroperitoneum:No free air or free fluid. No lymphadenopathy. Abd wall/Bones:Abdominal wall demonstrates no acute findings. Osseous structures demonstrate degenerative change. CT/CT abdomen pelvis wo con IMPRESSION: No acute process. Impression dictated by: Marcel Grossman Jr., D.O.04/30/2022 4:40 PM Assessment and Plan (1) Iron deficiency anemia Qualifiers: Iron deficiency anemia type: chronic blood loss Qualified Code(s): D50.0 - Iron deficiency anemia secondary to blood loss (chronic) This is a 77 year old lady who had severe iron deficiency anemia in late 2020, continued moderate anemia with EGD/colonoscopy/capsular endoscopy showing AVM/angiodysplasia. These lesions were treated with gold probe, but due to multiple lesions Dr. Granados recommended trial of Octreotide LAR 20mg IM monthly to decrease frequency of transfusions and hospitalizations due to severe anemia. I explained the pathophysiology of AVMs contributing to iron deficiency and she agrees to proceed. If she still has low iron stores on repeat testing despite daily oral ferrous sulfate, we will set up parenteral iron. Will f/u with me to reassess response to iron and octreotide and determine frequency of CBCs and iron infusions (for now, continue q2w CBC). 12/04/2021: Here for one month followup after starting Octreotide LAR 20mg IM monthly and oral iron. Iron saturation and ferritin are normal on 11/04/2021 labs. Energy and hemoglobin have continued to improve. Continue now monthly CBC with Octreotide LAR and f/u with me in 3 months with iron profile deferred unless recurrent symptomatic anemia. 03/05/2022: Patient has worsening fatigue and hemoglobin has declined to 8. Iron saturation down to 14% with low normal ferritin 36. Unsure if this is iron deficiency or another cause of anemia. We will replete with Injectafer 750 mg IV x2 weekly doses and repeat labs in 6 weeks. If persistent anemia despite replete iron stores, we may need to evaluate with bone marrow biopsy to exclude myelodysplastic syndrome. Patient expressed understanding. 04/23/2022: Patient has persistent anemia with hemoglobin 7.6 despite Injectafer last week. Iron saturation is still 12% with normal ferritin 77. She also has reticulocyte count of 1.2% which is hypoproliferative for her degree of anemia. She will receive another round of Injectafer 750 mg x 2 weekly doses with repeat labs in 4 weeks. Epigastric pain evaluated with CT abdomen pelvis to rule out mass. Okay to stop her daily oral iron. 04/30/2022: Abdomen/Pelvis CT with no concerning finding. Will receive first Injectafer of 2 today. Reeval with CBC and iron studies with exam in one month. If normal iron stores with persistent low hemoglobin, consider bone marrow biopsy at that time. Low complexity consult over [address] Abdomen/Pelvis and stable abdominal symptoms. (2) Epigastric abdominal pain Patient has previously reported constipation and had documented AVMs but now notes some abdominal distention, epigastric pain, and recent lower extremity edema that is new (not obvious on exam today). Unremarkable CT abdomen pelvis and will continue to monitor symptoms. (3) Angiodysplasia of gastrointestinal tract Octreotide LAR 20mg IM every 28 days as noted above. 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 She has not noted increased bloody stools or black stools but continues to have decline in hemoglobin to 7.6 noted on labs 04/17/2022. Continue monthly octreotide LAR. (4) Atrial fibrillation status post cardioversion (5) COPD (chronic obstructive pulmonary disease) (6) Hypertension (7) Hypothyroidism - Time with Patient Time Spent with Patient (Follow Up Visit): Less than 20 minutes - f/u labs and abdominal distention/pain symptoms, normal CT Abdomen/Pelvis, Injectafer infusions Coordination of Care & Counseling Time: Greater than 50% of time spent with patient was for coordination of care (as documented) and [id number] counseling of patient and/or family. Dictated By: Bell Camargo MD DD/ 1100 Signed By: <Electronically signed by MD Bell Camargo> 05/02/22 [id number] [facility] Work Phone: [phone] 608-538209-01-2022 Progress note Author Bell Camargo [facility] April 23, 2022 8:40am Note Date/Time April 23, 2022 8:30am [facility] [place] [facility] [place] [id number] Hem/Onc Follow Up Note - OP Signed Patient: Terri Newton MR#: [id number] : 1945 Acct:[id number] Age/Sex: 77 / F Type: REG RCR Copies to: MD Ceasar Ferrari, DO~ Subjective Date/Time of Service: Date of Service: 04/23/2022 Time of Service: 08:30 Chief Complaint: Patient is here today for iron deficiency and for bone marrow biopsy HPI: 04/23/2022: Terri continues to have fatigue and dyspnea on exertion. Despite receiving Injectafer 2 infusions over 2 weeks in late February, her hemoglobin returned this week at 7.6. She denies any visible melena or bright red blood per rectum. She has continued octreotide monthly with no improvement of her symptoms. She continues to have gaseous distention and has stopped oral iron. We offered bone marrow aspiration and biopsy and she again declined this today. She is concerned with persistent epigastric pain and weight gain with some lowerextremity edema. She has not had a previous abdomen/pelvic CT and on exam she has mildly increased bowel sounds with epigastric fullness. We will follow-up results by phone and determine if further work-up is needed. I am placing another orders for Injectafer 750mg IV x 2 doses due to iron sat 12% with normalferritin 77. Repeat iron studies in 4 weeks. Moderate complexity visit 30 minutes for new symptoms. 03/05/2022: Terri notes worsening fatigue and dyspnea on exertion. Her most recent hemoglobin is down to 8.0. She has been taking octreotide LAR 20 mg IM monthly with gaseous distention and light stools but no abdominal pain. Iron studies show low iron saturation 14% with low normal ferritin 36.2. We are setting up iron infusions with Injectafer 750 mg IV x 2 doses over 2 weeks. If she has persistent anemia after repletion of iron stores we may need to considerbone marrow biopsy for other causes of anemia such as myelodysplastic syndrome. Patient is in agreement with this plan and follow-up in the next 6 weeks for review of iron studies and CBC. 12/04/2021: Terri is here for followup after initiating Octreotide LAR 20mg IM monthly with weekly CBC. 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 She notes improving energy and weekly CBC over the past month shows gradually increasing hemoglobin (11/04 Hg 10.7, 12/01/2021 Hg 11). She also had f/u iron studies 11/04/2021 with normal iron saturation 23.3% with ferritin 37. She will continue monthly Octreotide IM, and I will change CBC to monthly prior to Octreotide LAR and f/u with me 02/2022. PREVIOUS HISTORY: Original consult 10/30/2021 This is a 76 year old lady who reported severe anemia, presenting in 06/2021 with a hemoglobin of 2.7. She received 5 units RBC and was discharged with daily ferrous sulfate. She did not present with chest pain or dyspnea, but had profound fatigue. She did not report any melena or hematochezia. She returned in Aug 2021 with hemoglobin 6.6. She received 2 more units of RBC and has been followed with every 2 week CBC since that time on daily oral iron. She denies dyspepsia or constipation on oral iron. Past history of hysterectomy age 23, no history of heavy menstrual bleeding, bleeding with surgeries, . She was on hormonal therapy post hysterectomy for about 2 years only. No history of thromboembolic disease. + for chronic constipation, prior atrial fibrillation s/p cardioversion last year. Chronic anticoagulation stopped due to severe anemia and she is being evaluated for a Watchman procedure. She was evaluated with upper and lower endoscopy in late Aug 2021 with subsequent capsular endoscopy 09/2021 revealing multiple sites of vascular ectasia--Dr. Jimenez treated gastric, small bowel, and cecal AVMs with gold probe. Dr. Granados recommended consideration of Octreotide LAR to prevent recurrent bleeding due to angiodysplasia. We discussed potential adverse reactions of cholecystitis, allergic reactions, dyspepsia. She agrees to proceed. Will contact her with repeat CBC/iron studies and consider parenteral iron if recurrent iron deficiency anemia. DIAGNOSIS: 1. Iron deficiency anemia due to chronic blood loss 2. Multiple AVMs (angiodysplasia) of gastric, proximal small bowel and cecum 09/15/2021 EGD/colonoscopy 3. Atrial fibrillation 4. COPD, prior 50+ pack year smoker, quit 02/2021 - Summary of Therapies Summary of Therapies: Octreotide LAR 20mg IM monthly ordered for AVMs--starting 10/2021. 03/05/2022: Injectafer 750 mg IV x2 doses ordered for iron saturation 14%, hemoglobin 8 04/23/2022: Injectafer 750 mg IV x2 doses ordered for iron saturation 12%, hemoglobin 7.6--patient declines bone marrow biopsy for further evaluation ROS Details: All systems reviewed & no additional complaints except as documented Subjective/ROS - Narrative: CONSTITUTIONAL: Worsening fatigue over the last 3 months, negative for fever or night sweats. HEAD AND NECK: Negative for changes in hearing and vision. Negative for mouth ulcers, nasal congestion and nasal drainage. PULMONARY: Negative for chest pain, cough and dyspnea. CARDIOVASCULAR: Negative for claudication and negative for irregular heartbeat/palpitations (improved after prior cardioversion). GASTROINTESTINAL: Positive for new persistent epigastric abdominal pain, decreased appetite, and constipation having 1 bowel movement per day on MiraLAX. No diarrhea, nausea or vomiting. + for known AVM. Stable stools on octreotide, recent worsening anemia. GENITOURINARY: Negative for dysuria and hematuria. ENDOCRINE: Negative for cold intolerance and heat intolerance. CENTRAL NERVOUS SYSTEM: Negative for gait disturbance and headache. No focal neurologic deficits. PSYCHIATRIC: Negative for anxiety or depression. DERMATOLOGICAL: Negative for pruritus and rash. Negative for suspicious skin lesions. MUSCULOSKELETAL: Negative for back pain and bone/joint symptoms. HEMATOLOGICAL: Negative for bleeding and easy bruising. Negative for history of thromboembolic disease. Multiple recent RBC transfusions (none prior to last year). ALLERGY: Negative for environmental allergies and food allergies. [facility] - History Attestation statement: The following information was validated with the patient. Source: Old Records Reviewed - Medical History Medical History: Medical History (Last Reviewed 04/23/22 @ 08:36 by Bell Camargo MD) Atrial fibrillation COPD (chronic obstructive pulmonary disease) Former smoker Hypothyroidism Iron deficiency anemia Kidney stones X 6 episodes Palpitations Pneumonia - Surgical History Surgical History: Surgical History (Last Reviewed 04/23/22 @ 08:36 by Bell Camargo MD) History of bladder suspension procedure History of hysterectomy History of tonsillectomy and adenoidectomy Hx of cholecystectomy - Family History Family History: Family History (Last Reviewed 04/23/22 @ 08:36 by Bell Camargo MD) Brother Fibromyalgia Heart disease Bone cancer Father Heart disease Myocardial infarct Sister Stroke Mother Suicide - Social History Smoking Status: Former smoker Tobacco Type: cigarettes Substance Use Type: None Home Medications & Allergies Allergies No Known Drug Allergies Allergy (Verified 04/23/22 08:06) Unknown Reaction Home Medications multivitamin 1 tab PO DAILY supplement 06/01/19 [History Confirmed 04/23/22] nitroglycerin 0.4 mg sublingual tablet 0.4 mg sublingual Q5-15M PRN Chest Pain 08/01/19 [History Confirmed 04/23/22] levothyroxine 88 mcg tablet 88 mcg PO DAILY 04/14/21 [History Confirmed 04/23/22] propafenone 150 mg tablet 150 mg PO Q8H 30 days #90 tabs 04/15/21 [Rx Confirmed 04/23/22] amlodipine 5 mg tablet 5 mg PO DAILY 09/15/21 [History Confirmed 04/23/22] furosemide 40 mg tablet 20 mg PO DAILY 09/15/21 [History Confirmed 04/23/22] methocarbamol 500 mg tablet 500 mg PO BID PRN Muscle Spasm 09/15/21 [History Confirmed 04/23/22] tramadol 50 mg tablet 50 mg PO BID PRN Back Pain 10/30/21 [History Confirmed 04/23/22] Objective - Height/Weight Height/Weight: Height 5 ft 4 in Weight 74.843 kg - Vital Signs Vital Signs: 04/23/22 08:07 Temperature 97.8 F Pulse Rate [Left Brachial] 60 Respiratory Rate 16 Blood Pressure [Left Arm] 142/75 H 02 Sat by Pulse Oximetry 99 Oxygen Delivery Method Room Air - Pain Back Pain Intensity: 6 Physical Exam Narrative: CONSTITUTIONAL: The patient is in no acute distress. HEAD / FACE: Normocephalic. EYES: Pupils are equal and reactive to light. Conjunctivae and lids are benign in appearance. Ocular movement intact. Positive mucosal pallor. EARS: Hearing grossly intact. NOSE / MOUTH / THROAT: Nose, mouth, tongue and oropharynx are benign in appearance. No signs of inflammation. NECK / THYROID: Neck is supple. Thyroid is symmetrical, without thyromegaly, masses or palpable nodules. LYMPHATIC: No palpable cervical, supraclavicular, axillary, or inguinal adenopathy. RESPIRATORY: Normal to inspection. Lungs clear to auscultation and percussion. No wheezing, rales, rhonchi or rubs. Normal effort. CARDIOVASCULAR: Regular rate and rhythm. No murmurs, gallops, or rubs. VASCULAR: Carotid, radial, femoral and pedal pulses present bilaterally. No bruits. ABDOMEN: Bowel sounds normoactive. Soft, nontender and non-distended. No hepatosplenomegaly. No masses. GENITOURINARY: No CVA tenderness. No suprapubic fullness or tenderness. No groinadenopathy. No evidence of hernias. INTEGUMENTARY: The skin is unremarkable. No rashes. No suspicious lesions BACK / SPINE: The back is nontender. MUSCULOSKELETAL: Normal musculature, no joint deformities or abnormalities, normal range of motion for all four extremities. EXTREMITIES: No edema, cyanosis or clubbing. No Coretta sign. NEUROLOGICAL: Alert and oriented. Cranial nerves intact. No gross motor or sensory deficits. PSYCHIATRIC: No anxiety or evidence of depression. - ECOG Performance Status ECOG Score: 1 Results - Labs Labs: Diagram of Most Recent CBC and CMP 04/17/22 08:30 Labs - Last 7 Days 04/17/22 10:17: Blood Type Recheck A Positive 04/17/22 09:10: Iron 40, TIBC 328, Iron Saturation 12.0 L, Transferrin 234, Ferritin 77.8 04/17/22 08:30: Corrected WBC 5.8, Uncorrected WBC Count 5.8, RBC 2.30 L, Hgb 7.6 L, Hct 23.6 L, MCV 102.3 H, MCH 33.1, MCHC 32.4, RDW 16.2 H, Plt Count 339, MPV 8.3, Neut % (Auto) N/A, Lymph % (Auto) N/A, [place] % (Auto) N/A, Eos % (Auto) N/A, Baso % (Auto) N/A, Neut # (Auto) N/A, Lymph # (Auto) N/A, [place] # (Auto) N/A, Eos # (Auto) N/A, Baso # (Auto) N/A, Nucleated RBC % (auto) 0.2, Lymphocytes % 19, Monocytes % 12 H, Eosinophils % 5 H, Metamyelocytes % 2 H, Myelocytes % 2 H, Segmented Neutrophils 60, Platelet Estimate Normal, Plt Morphology Comment Normal, RBC Morphology N/A, Anisocytosis Slight, MacrocytosisSlight 04/17/22 08:30: Blood Type A Positive, Antibody Screen Negative, Crossmatch (AHG) See Detail - Impressions CT abdomen pelvis with contrast ordered due to epigastric tenderness with persistent anemia, rule out mass Assessment and Plan (1) Iron deficiency anemia Qualifiers: Iron deficiency anemia type: chronic blood loss Qualified Code(s): D50.0 - Iron deficiency anemia secondary to blood loss (chronic) This is a 77 year old lady who had severe iron deficiency anemia in late 2020, continued moderate anemia with EGD/colonoscopy/capsular endoscopy showing AVM/angiodysplasia. These lesions were treated with gold probe, but due to multiple lesions Dr. Granados recommended trial of Octreotide LAR 20mg IM monthly to decrease frequency of transfusions and hospitalizations due to severe anemia. Iexplained the pathophysiology of AVMs contributing to iron deficiency and she agrees to proceed. If she still has low iron stores on repeat testing despite daily oral ferrous sulfate, we will set up parenteral iron. Will f/u with me toreassess response to iron and octreotide and determine frequency of CBCs and iron infusions (for now, continue q2w CBC). 12/04/2021: Here for one month followup after starting Octreotide LAR 20mg IM monthly and oral iron. Iron saturation and ferritin are normal on 11/04/2021 labs. Energy and hemoglobin have continued to improve. Continue now monthly CBC with Octreotide LAR and f/u with me in 3 months with iron profile deferred unless recurrent symptomatic anemia. 03/05/2022: Patient has worsening fatigue and hemoglobin has declined to 8. Ironsaturation down to 14% with low normal ferritin 36. Unsure if this is iron deficiency or another cause of anemia. We will replete with Injectafer 750 mg IV x2 weekly doses and repeat labs in 6 weeks. If persistent anemia despite replete iron stores, we may need to evaluate with bone marrow biopsy to exclude myelodysplastic syndrome. Patient expressed understanding. 04/23/2022: Patient has persistent anemia with hemoglobin 7.6 despite Injectafer last week. Iron saturation is still 12% with normal ferritin 77. She also has reticulocyte count of 1.2% which is hypoproliferative for her degree of anemia. She will receive another round of Injectafer 750 mg x 2 weekly doses with repeatlabs in 4 weeks. Epigastric pain evaluated with CT abdomen pelvis to rule out mass. Okay to stop her daily oral iron. Moderate complexity consult over 30 minutes to address new symptoms. (2) Epigastric abdominal pain Patient has previously reported constipation and had documented AVMs but now notes some abdominal distention, epigastric pain, and recent lower extremity edema that is new (not obvious on exam today). We are working up with CT abdomen pelvis and will follow-up results by phone in 1 week. (3) Angiodysplasia of gastrointestinal tract Octreotide LAR 20mg IM every 28 days as noted above. 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 She has not noted increased bloodystools or black stools but continues to have decline in hemoglobin to 7.6 noted on labs 04/17/2022. Continue monthly octreotide LAR. (4) Atrial fibrillation status post cardioversion (5) COPD (chronic obstructive pulmonary disease) (6) Hypertension (7) Hypothyroidism - Time with Patient Time Spent with Patient (Follow Up Visit): 35 minutes - f/u labs and no abdominal pain symptoms, arrange Injectafer infusions Coordination of Care & Counseling Time: Greater than 50% of time spent with patient was for coordination of care (as documented) and [id number] counseling of patient and/or family. Dictated By: Bell Camargo MD DD/ 9 Signed By: <Electronically signed by MD Bell Camargo> 04/23/[address] [facility] Work Phone: [phone] 823-862907-15-2022 Progress note Author Bell Camargo [facility] March 06, 2022 2:57pm Note Date/Time March 05, 2022 9:33 am [facility] [place] [address] Hem/Onc Follow Up Note - OP Signed Patient: Terri Newton MR#: [id number] : 1945 Acct:[id number] Age/Sex: 76 / F Type: REG RCR Copies to: MD eCasar Ferrari DO~ Subjective Date/Time of Service: Date of Service: 03/05/2022 Time of Service: 09:33 Chief Complaint: Patient is here today for 3 month follow up visit for iron deficiency anemia and go over outside labs. HPI: 03/05/2022: Terri notes worsening fatigue and dyspnea on exertion. Her most recent hemoglobin is down to 8.0. She has been taking octreotide LAR 20 mg IM monthly with gaseous distention and light stools but no abdominal pain. Iron studies show low iron saturation 14% with low normal ferritin 36.2. We are setting up iron infusions with Injectafer 750 mg IV x to doses over 2 weeks. Ifyamil has persistent anemia after repletion of iron stores we may need to considerbone marrow biopsy for other causes of anemia such as myelodysplastic syndrome. Patient is in agreement with this plan and follow-up in the next 6 weeks for review of iron studies and CBC. 12/04/2021: Terri is here for followup after initiating Octreotide LAR 20mg IM monthly with weekly CBC. 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 She notes improving energy and weekly CBC over the past month shows gradually increasing hemoglobin (11/04 Hg 10.7, 12/01/2021 Hg 11). She also had f/u iron studies 11/04/2021 with normal iron saturation 23.3% with ferritin 37. She will continue monthly Octreotide IM, and I will change CBC to monthly prior to Octreotide LAR and f/u with me 02/2022. PREVIOUS HISTORY: Original consult 10/30/2021 This is a 76 year old lady who reported severe anemia, presenting in 06/2021 with a hemoglobin of 2.7. She received 5 units RBC and was discharged with daily ferrous sulfate. She did not present with chest pain or dyspnea, but had profound fatigue. She did not report any melena or hematochezia. She returned in Aug 2021 with hemoglobin 6.6. She received 2 more units of RBC and has been followed with every 2 week CBC since that time on daily oral iron. She denies dyspepsia or constipation on oral iron. Past history of hysterectomy age 23, no history of heavy menstrual bleeding, bleeding with surgeries, . She was on hormonal therapy post hysterectomy for about 2 years only. No history of thromboembolic disease. + for chronic constipation, prior atrial fibrillation s/p cardioversion last year. Chronic anticoagulation stopped due to severe anemia and she is being evaluated for a Watchman procedure. She was evaluated with upper and lower endoscopy in late Aug 2021 with subsequent capsular endoscopy 09/2021 revealing multiple sites of vascular ectasia--Dr. Jimenez treated gastric, small bowel, and cecal AVMs with gold probe. Dr. Granados recommended consideration of Octreotide LAR to prevent recurrent bleeding due to angiodysplasia. We discussed potential adverse reactions of cholecystitis, allergic reactions, dyspepsia. She agrees to proceed. Will contact her with repeat CBC/iron studies and consider parenteral iron if recurrent iron deficiency anemia. DIAGNOSIS: 1. Iron deficiency anemia due to chronic blood loss 2. Multiple AVMs (angiodysplasia) of gastric, proximal small bowel and cecum 09/15/2021 EGD/colonoscopy 3. Atrial fibrillation 4. COPD, prior 50+ pack year smoker, quit 02/2021 - Summary of Therapies Summary of Therapies: Octreotide LAR 20mg IM monthly ordered for AVMs--starting 10/2021. 03/05/2022: Injectafer 750 mg IV x2 doses ordered for iron saturation 14%, hemoglobin 8 ROS Details: All systems reviewed & no additional complaints except as documented Subjective/ROS - Narrative: CONSTITUTIONAL: Worsening fatigue over the last 2 months, negative for fever or night sweats. HEAD AND NECK: Negative for changes in hearing and vision. Negative for mouth ulcers, nasal congestion and nasal drainage. PULMONARY: Negative for chest pain, cough and dyspnea. CARDIOVASCULAR: Negative for claudication and negative for irregular heartbeat/palpitations (improved after prior cardioversion). GASTROINTESTINAL: Negative for abdominal pain, decreased appetite, diarrhea, nausea or vomiting. + for known AVM and chronic constipation. 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 GENITOURINARY: Negative for dysuria and hematuria. ENDOCRINE: Negative for cold intolerance and heat intolerance. CENTRAL NERVOUS SYSTEM: Negative for gait disturbance and headache. PSYCHIATRIC: Negative for anxiety or depression. DERMATOLOGICAL: Negative for pruritus and rash. Negative for suspicious skin lesions. MUSCULOSKELETAL: Negative for back pain and bone/joint symptoms. HEMATOLOGICAL: Negative for bleeding and easy bruising. Negative for history of thromboembolic disease. Multiple recent RBC transfusions (none prior to last year). ALLERGY: Negative for environmental allergies and food allergies. PMFSH - History Attestation statement: The following information was validated with the patient. Source: Old Records Reviewed - Medical History Medical History: Medical History (Last Reviewed 03/06/22 @ 14:52 by Bell Camargo MD) Atrial fibrillation COPD (chronic obstructive pulmonary disease) Former smoker Hypothyroidism Iron deficiency anemia Kidney stones X 6 episodes Palpitations Pneumonia - Surgical History Surgical History: Surgical History (Last Reviewed 03/06/22 @ 14:52 by Bell Camargo MD) History of bladder suspension procedure History of hysterectomy History of tonsillectomy and adenoidectomy Hx of cholecystectomy - Family History Family History: Family History (Last Reviewed 03/06/22 @ 14:52 by Bell Camargo MD) Brother Fibromyalgia Heart disease Bone cancer Father Heart disease Myocardial infarct Sister Stroke Mother Suicide - Social History Smoking Status: Former smoker Tobacco Type: cigarettes Substance Use Type: None Home Medications & Allergies Allergies No Known Drug Allergies Allergy (Verified 03/05/22 09:25) Unknown Reaction Home Medications multivitamin 1 tab PO DAILY 06/01/19 [History Confirmed 03/05/22] nitroglycerin 0.4 mg sublingual tablet 0.4 mg SUBLINGUAL Q5-15M PRN 08/01/19 [History Confirmed 03/05/22] levothyroxine 88 mcg tablet 88 mcg PO DAILY 04/14/21 [History Confirmed 03/05/22] propafenone 150 mg tablet 150 mg PO Q8H 30 Days #90 tab 04/15/21 [Rx Confirmed 03/05/22] amlodipine 5 mg tablet 5 mg PO DAILY 09/15/21 [History Confirmed 03/05/22] ferrous sulfate 325 mg (65 mg iron) tablet,delayed release 325 mg PO DAILY 09/15/21 [History Confirmed 03/05/22] furosemide 40 mg tablet 20 mg PO DAILY 09/15/21 [History Confirmed 03/05/22] methocarbamol 500 mg tablet 500 mg PO BID PRN 09/15/21 [History Confirmed 03/05/22] tramadol 50 mg tablet 50 mg PO BID PRN 10/30/21 [History Confirmed 03/05/22] Objective - Height/Weight Height/Weight: Height 5 ft 4 in Weight 73.028 kg - Vital Signs Vital Signs: 03/05/22 09:27 Temperature 97.8 F Pulse Rate [Left Brachial] 54 L Respiratory Rate 16 Blood Pressure [Left Arm] 149/66 H 02 Sat by Pulse Oximetry 100 - Pain Back Pain Intensity: 6 Physical Exam Narrative: CONSTITUTIONAL: The patient is in no acute distress. HEAD / FACE: Normocephalic. EYES: Pupils are equal and reactive to light. Conjunctivae and lids are benign in appearance. Ocular movement intact. EARS: Hearing grossly intact. NOSE / MOUTH / THROAT: Nose, mouth, tongue and oropharynx are benign in appearance. No signs of inflammation. NECK / THYROID: Neck is supple. Thyroid is symmetrical, without thyromegaly, masses or palpable nodules. LYMPHATIC: No palpable cervical, supraclavicular, axillary, or inguinal adenopathy. RESPIRATORY: Normal to inspection. Lungs clear to auscultation and percussion. No wheezing, rales, rhonchi or rubs. Normal effort. CARDIOVASCULAR: Regular rate and rhythm. No murmurs, gallops, or rubs. VASCULAR: Carotid, radial, femoral and pedal pulses present bilaterally. No bruits. ABDOMEN: Bowel sounds normoactive. Soft, nontender and non-distended. No hepatosplenomegaly. No masses. GENITOURINARY: No CVA tenderness. No suprapubic fullness or tenderness. No groinadenopathy. No evidence of hernias. INTEGUMENTARY: The skin is unremarkable. No rashes. No suspicious lesions BACK / SPINE: The back is nontender. MUSCULOSKELETAL: Normal musculature, no joint deformities or abnormalities, normal range of motion for all four extremities. EXTREMITIES: No edema, cyanosis or clubbing. No Coretta sign. NEUROLOGICAL: Alert and oriented. Cranial nerves intact. No gross motor or sensory deficits. PSYCHIATRIC: No anxiety or evidence of depression. - ECOG Performance Status ECOG Score: 1 - Fatigue from anemia Results - Labs Labs: 03/05/2022: White blood cells 4900, absolute neutrophil count 3300, hemoglobin 8,hematocrit 24, platelet count 253,000 Serum iron 53, iron saturation 14%, ferritin 36.2 - Impressions No imaging for review. Assessment and Plan (1) Iron deficiency anemia Qualifiers: Iron deficiency anemia type: chronic blood loss Qualified Code(s): D50.0 - Iron deficiency anemia secondary to blood loss (chronic) This is a 76 year old lady who had severe iron deficiency anemia in late 2020, continued moderate anemia with EGD/colonoscopy/capsular endoscopy showing AVM/angiodysplasia. These lesions were treated with gold probe, but due to multiple lesions Dr. Granados recommended trial of Octreotide LAR 20mg IM monthly to decrease frequency of transfusions and hospitalizations due to severe anemia. I explained the pathophysiology of AVMs contributing to iron deficiency and sheagrees to proceed. If she still has low iron stores on repeat testing despite daily oral ferrous sulfate, we will set up parenteral iron. Will f/u with me toreassess response to iron and octreotide and determine frequency of CBCs and iron infusions (for now, continue q2w CBC). 12/04/2021: Here for one month followup after starting Octreotide LAR 20mg IM monthly and oral iron. Iron saturation and ferritin are normal on 11/04/2021 labs. Energy and hemoglobin have continued to improve. Continue now monthly CBC with Octreotide LAR and f/u with me in 3 months with iron profile deferred unless recurrent symptomatic anemia. 03/05/2022: Patient has worsening fatigue and hemoglobin has declined to 8. Ironsaturation down to 14% with low normal ferritin 36. Unsure if this is iron deficiency or another cause of anemia. We will replete with Injectafer 750 mg IV x2 weekly doses and repeat labs in 6 weeks. If persistent anemia despite replete iron stores, we may need to evaluate with bone marrow biopsy to exclude myelodysplastic syndrome. Patient expressed understanding. Low complexity consult over 20 minutes. (2) Angiodysplasia of gastrointestinal tract Octreotide LAR 20mg IM every 28 days as noted above. 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 She has not noted increased bloodystools or black stools since decline in hemoglobin to 8 noted on labs 03/05/2022. Continue octreotide LAR. (3) Atrial fibrillation status post cardioversion (4) COPD (chronic obstructive pulmonary disease) (5) Hypertension (6) Hypothyroidism - Time with Patient Time Spent with Patient (Follow Up Visit): 25 minutes - f/u labs and symptoms, arrange Injectafer infusions (low complexity) Coordination of Care & Counseling Time: Greater than 50% of time spent with patient was for coordination of care (as documented) and [id number] counseling of patient and/or family. Dictated By: Bell Camargo MD DD/ [id number] Signed By: <Electronically signed by MD Bell Camargo> 03/06/22 1457 [facility] Work Phone: [phone]) 928-604604-14-2022 Progress note Author Bell Camargo [facility] December 04, 2021 9:33pm Note Date/Time December 04, 2021 10: 56am [facility] at [address] [address] Hem/Onc Follow Up Note - OP Signed Patient: Terri Newton MR#: [id number] : 1945 Acct:[id number] Age/Sex: 76 / F Type: REG RCR Copies to: MD Ceasar Ferrari, DO~ Subjective Date/Time of Service: Date of Service: 12/04/2021 Time of Service: 10:55 Chief Complaint: Patient is here today for 1 month follow up visit for iron deficiency anemia and go over outside labs HPI: 12/04/2021: Terri is here for followup after initiating Octreotide LAR 20mg IM monthly with weekly CBC. 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 She notes improving energy and weekly CBC over the past month shows gradually increasing hemoglobin (11/04 Hg 10.7, 12/01/2021 Hg 11). She also had f/u iron studies 11/04/2021 with normal iron saturation 23.3% with ferritin 37. She will continue monthly Octreotide IM, and I will change CBC to monthly prior to Octreotide LAR and f/u with me 02/2022. PREVIOUS HISTORY: Original consult 10/30/2021 This is a 76 year old lady who reported severe anemia, presenting in 06/2021 with a hemoglobin of 2.7. She received 5 units RBC and was discharged with daily ferrous sulfate. She did not present with chest pain or dyspnea, but had profound fatigue. She did not report any melena or hematochezia. She returned in Aug 2021 with hemoglobin 6.6. She received 2 more units of RBC and has been followed with every 2 week CBC since that time on daily oral iron. She denies dyspepsia or constipation on oral iron. Past history of hysterectomy age 23, no history of heavy menstrual bleeding, bleeding with surgeries, . She was on hormonal therapy post hysterectomy for about 2 years only. No history of thromboembolic disease. + for chronic constipation, prior atrial fibrillation s/p cardioversion last year. Chronic anticoagulation stopped due to severe anemia and she is being evaluated for a Watchman procedure. She was evaluated with upper and lower endoscopy in late Aug 2021 with subsequent capsular endoscopy 09/2021 revealing multiple sites of vascular ectasia--Dr. Jimenez treated gastric, small bowel, and cecal AVMs with gold probe. Dr. Granados recommended consideration of Octreotide LAR to prevent recurrent bleeding due to angiodysplasia. We discussed potential adverse reactions of cholecystitis, allergic reactions, dyspepsia. She agrees to proceed. Will contact her with repeat CBC/iron studies and consider parenteral iron if recurrent iron deficiency anemia. DIAGNOSIS: 1. Iron deficiency anemia due to chronic blood loss 2. Multiple AVMs (angiodysplasia) of gastric, proximal small bowel and cecum 09/15/2021 EGD/colonoscopy 3. Atrial fibrillation 4. COPD, prior 50+ pack year smoker, quit 02/2021 - Summary of Therapies Summary of Therapies: Octreotide LAR 20mg IM monthly ordered for AVMs--starting 10/2021. ROS Details: All systems reviewed & no additional complaints except as documented Subjective/ROS - Narrative: CONSTITUTIONAL: Significantly improved fatigue, negative for fever or night sweats. HEAD AND NECK: Negative for changes in hearing and vision. Negative for mouth ulcers, nasal congestion and nasal drainage. PULMONARY: Negative for chest pain, cough and dyspnea. CARDIOVASCULAR: Negative for claudication and negative for irregular heartbeat/palpitations (improved after prior cardioversion). GASTROINTESTINAL: Negative for abdominal pain, decreased appetite, diarrhea, nausea or vomiting. + for known AVM and chronic constipation. 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 GENITOURINARY: Negative for dysuria and hematuria. ENDOCRINE: Negative for cold intolerance and heat intolerance. CENTRAL NERVOUS SYSTEM: Negative for gait disturbance and headache. PSYCHIATRIC: Negative for anxiety or depression. DERMATOLOGICAL: Negative for pruritus and rash. Negative for suspicious skin lesions. MUSCULOSKELETAL: Negative for back pain and bone/joint symptoms. HEMATOLOGICAL: Negative for bleeding and easy bruising. Negative for history of thromboembolic disease. Multiple recent RBC transfusions (none prior to last year). ALLERGY: Negative for environmental allergies and food allergies. PMFSH - History Attestation statement: The following information was validated with the patient. Source: Old Records Reviewed - Medical History Medical History: Medical History (Last Reviewed 12/04/21 @ 21:19 by Bell Camargo MD) Atrial fibrillation COPD (chronic obstructive pulmonary disease) Former smoker Hypothyroidism Iron deficiency anemia Kidney stones X 6 episodes Palpitations Pneumonia - Surgical History Surgical History: Surgical History (Last Reviewed 12/04/21 @ 10:56 by Bell Camargo MD) History of bladder suspension procedure History of hysterectomy History of tonsillectomy and adenoidectomy Hx of cholecystectomy - Family History Family History: Family History (Last Reviewed 12/04/21 @ 10:56 by Bell Camargo MD) Brother Fibromyalgia Heart disease Bone cancer Father Heart disease Myocardial infarct Sister Stroke Mother Suicide - Social History Smoking Status: Former smoker Tobacco Type: cigarettes Substance Use Type: None Home Medications & Allergies Allergies No Known Drug Allergies Allergy (Verified 12/04/21 10:46) Unknown Reaction Home Medications multivitamin 1 tab PO DAILY 06/01/19 [History Confirmed 12/04/21] nitroglycerin 0.4 mg sublingual tablet 0.4 mg SUBLINGUAL Q5-15M PRN 08/01/19 [History Confirmed 12/04/21] levothyroxine 88 mcg tablet 88 mcg PO DAILY 04/14/21 [History Confirmed 12/04/21] propafenone 150 mg tablet 150 mg PO Q8H 30 Days #90 tab 04/15/21 [Rx Confirmed 12/04/21] amlodipine 5 mg tablet 5 mg PO DAILY 09/15/21 [History Confirmed 12/04/21] ferrous sulfate 325 mg (65 mg iron) tablet,delayed release 325 mg PO DAILY 09/15/21 [History Confirmed 12/04/21] furosemide 40 mg tablet 20 mg PO DAILY 09/15/21 [History Confirmed 12/04/21] methocarbamol 500 mg tablet 500 mg PO BID PRN 09/15/21 [History Confirmed 12/04/21] tramadol 50 mg tablet 50 mg PO BID PRN 10/30/21 [History Confirmed 12/04/21] Objective - Height/Weight Height/Weight: Height 5 ft 4 in Weight 74.843 kg - Vital Signs Vital Signs: 12/04/21 10:47 Temperature 98.0 F Pulse Rate [Left Brachial] 71 Respiratory Rate 16 Blood Pressure [Left Arm] 129/74 02 Sat by Pulse Oximetry 97 - Pain Back Pain Intensity: 6 Physical Exam Narrative: CONSTITUTIONAL: The patient is in no acute distress. HEAD / FACE: Normocephalic. EYES: Pupils are equal and reactive to light. Conjunctivae and lids are benign in appearance. Ocular movement intact. EARS: Hearing grossly intact. NEUROLOGICAL: Alert and oriented. Cranial nerves intact. No gross motor or sensory deficits. PSYCHIATRIC: No anxiety or evidence of depression. Full exam deferred--see physical exam from initial consult 11/06/2021 NOSE / MOUTH / THROAT: Nose, mouth, tongue and oropharynx are benign in appearance. No signs of inflammation. NECK / THYROID: Neck is supple. Thyroid is symmetrical, without thyromegaly, masses or palpable nodules. LYMPHATIC: No palpable cervical, supraclavicular, axillary, or inguinal adenopathy. RESPIRATORY: Normal to inspection. Lungs clear to auscultation and percussion. No wheezing, rales, rhonchi or rubs. Normal effort. CARDIOVASCULAR: Regular rate and rhythm. No murmurs, gallops, or rubs. VASCULAR: Carotid, radial, femoral and pedal pulses present bilaterally. No bruits. ABDOMEN: Bowel sounds normoactive. Soft, nontender and non-distended. No hepatosplenomegaly. No masses. GENITOURINARY: No CVA tenderness. No suprapubic fullness or tenderness. No groinadenopathy. No evidence of hernias. INTEGUMENTARY: The skin is unremarkable. No rashes. No suspicious lesions BACK / SPINE: The back is nontender. MUSCULOSKELETAL: Normal musculature, no joint deformities or abnormalities, normal range of motion for all four extremities. EXTREMITIES: No edema, cyanosis or clubbing. No Coretta sign. - ECOG Performance Status ECOG Score: 1 Results - Labs Outside Labs: 11/04/2021: WBC 4000, Hg 10.7, Hct 33.8, Platelets 281,000--serum iron 90, iron saturation 23%, Ferritin 37 11/17/2021: WBC 4800, Hg 10.5, Hct 33.8, Platelets 271,000 12/01/2021: WBC 4200, Hg 11, Hct 35.1, Platelets 286,000 - Impressions No imaging for review. Assessment and Plan (1) Iron deficiency anemia Qualifiers: Iron deficiency anemia type: chronic blood loss Qualified Code(s): D50.0 - Iron deficiency anemia secondary to blood loss (chronic) This is a 76 year old lady who had severe iron deficiency anemia in late 2020, continued moderate anemia with EGD/colonoscopy/capsular endoscopy showing AVM/angiodysplasia. These lesions were treated with gold probe, but due to multiple lesions Dr. Granados recommended trial of Octreotide LAR 20mg IM monthly to decrease frequency of transfusions and hospitalizations due to severe anemia. I explained the pathophysiology of AVMs contributing to iron deficiency and sheagrees to proceed. If she still has low iron stores on repeat testing despite daily oral ferrous sulfate, we will set up parenteral iron. Will f/u with me toreassess response to iron and octreotide and determine frequency of CBCs and iron infusions (for now, continue q2w CBC). 12/04/2021: Here for one month followup after starting Octreotide LAR 20mg IM monthly and oral iron. Iron saturation and ferritin are normal on 11/04/2021 labs. Energy and hemoglobin have continued to improve. Continue now monthly CBC with Octreotide LAR and f/u with me in 3 months with iron profile deferred unless recurrent symptomatic anemia. Low complexity consult over 20 minutes. (2) Angiodysplasia of gastrointestinal tract Octreotide LAR 20mg IM every 28 days as noted above. 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 (3) Atrial fibrillation status post cardioversion (4) COPD (chronic obstructive pulmonary disease) (5) Hypertension (6) Hypothyroidism - Time with Patient Time Spent with Patient (Follow Up Visit): Less than 20 minutes - f/u labs and symptoms Coordination of Care & Counseling Time: Greater than 50% of time spent with patient was for coordination of care (as documented) and [id number] counseling of patient and/or family. Dictated By: Bell Camargo MD DD/ [id number] Signed By: <Electronically signed by MD Bell Camargo> 12/04/21 [address] [facility] Work Phone: [phone] Consult note Author Bell Camargo [facility] October 31, 2021 10:35pm Note Date/Time October 30, 2021 1:2 3pm [facility] [place] [address] Hem/Onc Consult Note - OP Signed Patient: Terri Newton MR#: [id number] : 1945 Acct:[id number] Age/Sex: 76 / F Type: REG RCR Copies to: MD Ceasar Ferrari, DO~ HPI Date/Time of Service: Date of Service: 10/30/2021 Time of Service: 13:23 Referring Provider/PCP: Referring Provider: Jarrell Granados MD PCP: Ceasar Dunn DO - History of Present Illness Reason for Consultation: Patient with multiple AVMs on capsular endoscopy for recurrent iron deficiency anemia. Referred for management of both diagnoses. Chief Complaint: Patient is here today for a referral from Dr Granados for iron deficiency anemia HPI: Dear Dr. Granados, I had the great pleasure of seeing your patient in consultation. Thank you verymuch for your referral. This is a 76 year old lady who reported severe anemia, presenting in 06/2021 with a hemoglobin of 2.7. She received 5 units RBC and was discharged with daily ferrous sulfate. She did not present with chest pain or dyspnea, but had profound fatigue. She did not report any melena or hematochezia. She returned in Aug 2021 with hemoglobin 6.6. She received 2 more units of RBC and has been followed with every 2 week CBC since that time ondaily oral iron. She denies dyspepsia or constipation on oral iron. Past history of hysterectomy age 23, no history of heavy menstrual bleeding, bleeding with surgeries, . She was on hormonal therapy post hysterectomy for about 2 years only. No history of thromboembolic disease. + for chronic constipation, prior atrial fibrillation s/p cardioversion last year. Chronic anticoagulation stopped due to severe anemia and she is being evaluated for a Watchman procedure. She was evaluated with upper and lower endoscopy in late Aug 2021 with subsequent capsular endoscopy 09/2021 revealing multiple sites of vascular ectasia--Dr. Jimenez treated gastric, small bowel, and cecal AVMs with gold probe. Dr. Granados recommended consideration of Octreotide LAR to prevent recurrent bleeding due to angiodysplasia. We discussed potential adverse reactions of cholecystitis, allergic reactions, dyspepsia. She agrees to proceed. Will contact her with repeat CBC/iron studies and consider parenteral iron if recurrent iron deficiency anemia. PMFSH - History Attestation statement: The following information was validated with the patient. Source: Old Records Reviewed - Medical History Medical History: Medical History (Last Reviewed 10/31/21 @ 22:10 by Bell Camargo MD) Atrial fibrillation COPD (chronic obstructive pulmonary disease) Former smoker Hypothyroidism Iron deficiency anemia Kidney stones X 6 episodes Palpitations Pneumonia - Surgical History Surgical History: Surgical History (Last Reviewed 10/31/21 @ 22:10 by Bell Camargo MD) History of bladder suspension procedure History of hysterectomy History of tonsillectomy and adenoidectomy Hx of cholecystectomy - Family History Family History: Family History (Last Reviewed 10/31/21 @ 22:10 by Bell Camargo MD) Brother Fibromyalgia Heart disease Bone cancer Father Heart disease Myocardial infarct Sister Stroke Mother Suicide - Social History Smoking Status: Former smoker Tobacco Type: cigarettes Substance Use Type: None Home Medications & Allergies Allergies No Known Drug Allergies Allergy (Verified 10/30/21 13:04) Unknown Reaction Home Medications multivitamin 1 tab PO DAILY 06/01/19 [History Confirmed 10/30/21] nitroglycerin 0.4 mg sublingual tablet 0.4 mg SUBLINGUAL Q5-15M PRN 08/01/19 [History Confirmed 10/30/21] levothyroxine 88 mcg tablet 88 mcg PO DAILY 04/14/21 [History Confirmed 10/30/21] propafenone 150 mg tablet 150 mg PO Q8H 30 Days #90 tab 04/15/21 [Rx Confirmed 10/30/21] amlodipine 5 mg tablet 5 mg PO DAILY 09/15/21 [History Confirmed 10/30/21] ferrous sulfate 325 mg (65 mg iron) tablet,delayed release 325 mg PO DAILY 09/15/21 [History Confirmed 10/30/21] furosemide 40 mg tablet 20 mg PO DAILY 09/15/21 [History Confirmed 10/30/21] methocarbamol 500 mg tablet 500 mg PO BID PRN 09/15/21 [History Confirmed 10/30/21] tramadol 50 mg tablet 50 mg PO BID PRN 10/30/21 [History Confirmed 10/30/21] Subjective Data - Diagnosis DIAGNOSIS: 1. Iron deficiency anemia due to chronic blood loss 2. Multiple AVMs (angiodysplasia) of gastric, proximal small bowel and cecum 09/15/2021 EGD/colonoscopy 3. Atrial fibrillation 4. COPD, prior 50+ pack year smoker, quit 02/2021 - Summary of Therapies Summary of Therapies: Octreotide LAR 20mg IM monthly ordered for AVMs Subjective/ROS - Narrative: CONSTITUTIONAL: Positive for recurrent fatigue, negative for fever or night sweats. HEAD AND NECK: Negative for changes in hearing and vision. Negative for mouth ulcers, nasal congestion and nasal drainage. PULMONARY: Negative for chest pain, cough and dyspnea. CARDIOVASCULAR: Negative for claudication and negative for irregular heartbeat/palpitations (improved after prior cardioversion). GASTROINTESTINAL: Negative for abdominal pain, decreased appetite, diarrhea, nausea or vomiting. + for known AVM and chronic constipation. GENITOURINARY: Negative for dysuria and hematuria. ENDOCRINE: Negative for cold intolerance and heat intolerance. CENTRAL NERVOUS SYSTEM: Negative for gait disturbance and headache. PSYCHIATRIC: Negative for anxiety or depression. DERMATOLOGICAL: Negative for pruritus and rash. Negative for suspicious skin lesions. MUSCULOSKELETAL: Negative for back pain and bone/joint symptoms. HEMATOLOGICAL: Negative for bleeding and easy bruising. Negative for history of thromboembolic disease. Multiple recent RBC transfusions (none prior to last year). ALLERGY: Negative for environmental allergies and food allergies. ROS Details: All systems reviewed & no additional complaints except as documented Objective - Height/Weight Height/Weight: Height 5 ft 4 in Weight 74.843 kg - Vital Signs Vital Signs: 10/30/21 13:10 Temperature 98.1 F Pulse Rate [Left Brachial] 60 Respiratory Rate 16 Blood Pressure [Left Arm] 181/79 H 02 Sat by Pulse Oximetry 99 - Pain Back Pain Intensity: 3 Physical Exam Narrative: CONSTITUTIONAL: The patient is in no acute distress. HEAD / FACE: Normocephalic. EYES: Pupils are equal and reactive to light. Conjunctivae and lids are benign in appearance. Ocular movement intact. EARS: Hearing grossly intact. NOSE / MOUTH / THROAT: Nose, mouth, tongue and oropharynx are benign in appearance. No signs of inflammation. NECK / THYROID: Neck is supple. Thyroid is symmetrical, without thyromegaly, masses or palpable nodules. LYMPHATIC: No palpable cervical, supraclavicular, axillary, or inguinal adenopathy. RESPIRATORY: Normal to inspection. Lungs clear to auscultation and percussion. No wheezing, rales, rhonchi or rubs. Normal effort. CARDIOVASCULAR: Regular rate and rhythm. No murmurs, gallops, or rubs. VASCULAR: Carotid, radial, femoral and pedal pulses present bilaterally. No bruits. ABDOMEN: Bowel sounds normoactive. Soft, nontender and non-distended. No hepatosplenomegaly. No masses. GENITOURINARY: No CVA tenderness. No suprapubic fullness or tenderness. No groinadenopathy. No evidence of hernias. INTEGUMENTARY: The skin is unremarkable. No rashes. No suspicious lesions BACK / SPINE: The back is nontender. MUSCULOSKELETAL: Normal musculature, no joint deformities or abnormalities, normal range of motion for all four extremities. EXTREMITIES: No edema, cyanosis or clubbing. No Coretta sign. NEUROLOGICAL: Alert and oriented. Cranial nerves intact. No gross motor or sensory deficits. PSYCHIATRIC: No anxiety or evidence of depression. - ECOG Performance Status ECOG Score: 2 Results - Labs Outside Labs: 10/20/2021: WBC 4900, Hg 10.1, Hct 32.6, Platelets 180,000, ANC 2500 09/10/2021: WBC 5200, Hg 6.6, Hct 22.0, Platelets 357,000 Na 137, K 4.8, BUN 33, Creat 1.52, eGFR (nonAA) 33, Ca 8.9 08/01/2021: Iron 35, Iron saturation 9.4% - Impressions No imaging for review. - Other Results Results/Comments: 09/15/2021 Alem Jimenez EGD/Colonoscopy Additional procedure: 1. EGD with bipolar cautery and tattoo 2. colonoscopy to terminal ileum with bipolar cautery Preoperative diagnosis:: severe iron deficiency anemia Postoperative diagnosis:: 1. several small vascular ectasias, proximal small bowel, ablated to gold probe 2. tattoo placed at furthest area of small bowel scope could be reached with the enteroscope 3. a couple small duodenal diverticuli 4. mild hemorrhagic gastritis ablated with gold probe 5. small vascular ectasia, cecum, ablated with gold probe Preparation/Medications:: 1. Propofol per anesthesia dept 2. prep was good Procedure description: O2 oximetry, hemodynamic monitoring was performed pre, during, and post procedure. Patient was identified, H&P completed, patient was given full explanation of the procedure as well as associated risks and written consent wasobtained prior to procedure. Patient expressed complete understanding of the procedure as well as alternatives to the procedure and to anesthesia and agreed to proceed with the procedure as indicated. Patient was immediately reassessed prior to IV sedation. Following IV sedation, patient was placed in the left lateral decubitus position. Bite block was inserted. Endoscope was passed through the mouth, into the esophagus. Scope was passed to GE junction. Scope was advanced into the stomach through the pyloric channel and into the duodenum. A couple small duodenal diverticuli. Scope advanced further into the small bowel. Several small vascular ectasias, proximal small bowel, ablated to gold probe. Tattoo, with SPOT ink 1 cc per injection for total of 1 cc, placed at furthest section of small bowel scope that could be reached with the enteroscope. Scope was withdrawn into the stomach and retroflexion was performed. The scope was straightened, the stomach was decompressed. Scope was withdrawn into the esophagus then completely removed. Subsequently the bed was switched around. Digital rectal exam was performed. Colonoscope was inserted and passed proximally. Scope was advanced over to the right side. Ileocecal valve, cecal floor, and appendiceal orifice were identified. Small vascular ectasia, cecum, ablated with gold probe. Terminal ileum was cannulated. Scope was slowly withdrawn through the ascending colon, hepatic flexure, transverse colon, splenic flexure, descending colon, sigmoid colon, and rectum. Retroflexion was performed, scope was then straightened and removed. Following a period of recovery, patient was seen and given full explanation of the procedure. Patient tolerated the procedure well and be discharged in satisfactory, stable condition. Recommendations:: 1. continue to follow H/H 2. followup with Dr. Granados Documented By: Alem Jimenez Jr, DO 09/15/21 102 7 Signed By: <Electronically signed by Alem Jimenez Jr, DO> Assessment and Plan (1) Iron deficiency anemia Qualifiers: Iron deficiency anemia type: chronic blood loss Qualified Code(s): D50.0 - Iron deficiency anemia secondary to blood loss (chronic) This is a 76 year old lady who had severe iron deficiency anemia in late 2020, continued moderate anemia with EGD/colonoscopy/capsular endoscopy showing AVM/angiodysplasia. These lesions were treated with gold probe, but due to multiple lesions Dr. Granados recommended trial of Octreotide LAR 20mg IM monthly to decrease frequency of transfusions and hospitalizations due to severe anemia. I explained the pathophysiology of AVMs contributing to iron deficiency and sheagrees to proceed. If she still has low iron stores on repeat testing despite daily oral ferrous sulfate, we will set up parenteral iron. Will f/u with me toreassess response to iron and octreotide and determine frequency of CBCs and iron infusions (for now, continue q2w CBC). Moderate complexity consult over 45minutes. I would like to thank you very much for the courtesy of this referral. I will keep you up-to-date with this patient's progress. Should you have any questionsregarding the management of this patient, please do not hesitate to contact me. Sincerely, Bell Camargo MD, FACP Medical Oncology (2) Angiodysplasia of gastrointestinal tract Octreotide LAR 20mg IM every 28 days as noted above. (3) Atrial fibrillation status post cardioversion (4) COPD (chronic obstructive pulmonary disease) (5) Hypertension (6) Hypothyroidism - Time with Patient Total Time Spent with Patient (Consult): 45 mins - Moderate complexity face to face visit to review prior records, consent for Octreotide LAR Coordination of Care & Counseling Time: Greater than 50% of time spent with patient was for coordination of care (as documented) and [id number] counseling of patient and/or family. Dictated By: Bell Camargo MD DD/ [id number] Signed By: <Electronically signed by MD Bell Camargo> 10/31/21 [facility] Work Phone: [phone] Evaluation note* Encounter Date Diagnosis Assessment Notes Treatment Notes Treatment Clinical Notes Oct, Vascular ectasia of small intestine (ICD-10 - K63.9) REFERRAL TO HEMATOLOGY ( ALREADY IN PLACE) F/U HERE PRN [facility] [employer] Other 01-13-2022 Evaluation note* Encounter Date Diagnosis Assessment Notes Treatment Notes Treatment Clinical Notes Aug, Iron deficiency anemia (ICD-10 - D50.9) [employer] Other Evaluation noteNo InformationNort Therative Other Evaluation note* Diagnosis Onset Date Resolution Status Epigastric abdominal pain ac sitka Angiodysplasia of gastrointestinal tract chronic Atrial fibrillation status post cardioversion chronic COPD (chronic obstructive pulmonary disease) chronic Hypertension chronic Hypothyroidism chronic Iron deficiency anemia chron ic [facility] Work Phone: Evaluation note* Diagnosis Onset Date Resolution Status Angiodysplasia of gastrointestinal tract chronic Atrial fibrillation status post cardioversion chronic COPD (chronic obstructive pulmonary disease) chronic Epigastric abdominal pain ch ronic Hypertension chronic Hypothyroidism chronic Iron deficiency anemia [facility] Work Phone: Evaluation note* Diagnosis Onset Date Resolution Status Angiodysplasia of gastrointestinal tract chronic Atrial fibrillation status post cardioversion chronic COPD (chronic obstructive pulmonary disease) chronic Epigastric abdominal pain ch ronic Folate deficiency anemia, unspecified chronic Hypertension chronic Hypothyroidism chronic Iron deficiency anemia [facility] Work Phone: Evaluation note* Diagnosis Hypothyroidism, unspecified (CMS/HCC) documented in this encounter [facility] Diagnosis Onset Date Resolution Status Stage 3 chronic kidney disease acute Angiodysplasia of gastrointestinal tract chronic Atrial fibrillation status post cardioversion chronic Iron deficiency anemia [facility] Angiodysplasia of gastrointestinal tract chronic Atrial fibrillation status post cardioversion chronic COPD (chronic obstructive pulmonary disease) chronic Epigastric abdominal pain ch ronic Folate deficiency anemia, unspecified chronic Hypertension chronic Hypothyroidism chronic Iron deficiency anemia [facility] Work Phone: Hisakts general Narrative - Reported* Type Description Date Surgical History cholecystectomy Surgical History hysterectomy [facility] [employer] Other Hisftrr general Narrative - Reported* Type Description Date Medical History HYPERTENSION Surgical History cholecystectomy Surgical History hysterectomy Hospitalization History SEE ABOVE [facility] [employer] Other Hismoxe general Narrative - Reported* Type Description Date Medical History HYPERTENSION Medical History COPD Medical History Chronic Bronchitis Surgical History cholecystectomy Surgical History hysterectomy Hospitalization History SEE ABOVE [facility] [employer] Other Progress note Author Bell Camargo [facility] April 23, 2022 8:40am Note Date/Time April 23, 2022 8:30am [facility] [place] [address] Hem/Onc Follow Up Note - OP Signed Patient: Terri Newton MR#: [id number] : 1945 Acct:[id number] Age/Sex: 77 / F Type: REG RCR Copies to: MD Ceasar Ferrari, DOJeri Subjective Date/Time of Service: Date of Service: 04/23/2022 Time of Service: 08:30 Chief Complaint: Patient is here today for iron deficiency and for bone marrow biopsy HPI: 04/23/2022: Terri continues to have fatigue and dyspnea on exertion. Despite receiving Injectafer 2 infusions over 2 weeks in late February, her hemoglobin returned this week at 7.6. She denies any visible melena or bright red blood per rectum. She has continued octreotide monthly with no improvement of her symptoms. She continues to have gaseous distention and has stopped oral iron. We offered bone marrow aspiration and biopsy and she again declined this today. She is concerned with persistent epigastric pain and weight gain with some lowerextremity edema. She has not had a previous abdomen/pelvic CT and on exam she has mildly increased bowel sounds with epigastric fullness. We will follow-up results by phone and determine if further work-up is needed. I am placing another orders for Injectafer 750mg IV x 2 doses due to iron sat 12% with normalferritin 77. Repeat iron studies in 4 weeks. Moderate complexity visit 30 minutes for new symptoms. 03/05/2022: Terri notes worsening fatigue and dyspnea on exertion. Her most recent hemoglobin is down to 8.0. She has been taking octreotide LAR 20 mg IM monthly with gaseous distention and light stools but no abdominal pain. Iron studies show low iron saturation 14% with low normal ferritin 36.2. We are setting up iron infusions with Injectafer 750 mg IV x 2 doses over 2 weeks. If she has persistent anemia after repletion of iron stores we may need to considerbone marrow biopsy for other causes of anemia such as myelodysplastic syndrome. Patient is in agreement with this plan and follow-up in the next 6 weeks for review of iron studies and CBC. 12/04/2021: Terri is here for followup after initiating Octreotide LAR 20mg IM monthly with weekly CBC. 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 She notes improving energy and weekly CBC over the past month shows gradually increasing hemoglobin (11/04 Hg 10.7, 12/01/2021 Hg 11). She also had f/u iron studies 11/04/2021 with normal iron saturation 23.3% with ferritin 37. She will continue monthly Octreotide IM, and I will change CBC to monthly prior to Octreotide LAR and f/u with me 02/2022. PREVIOUS HISTORY: Original consult 10/30/2021 This is a 76 year old lady who reported severe anemia, presenting in 06/2021 with a hemoglobin of 2.7. She received 5 units RBC and was discharged with daily ferrous sulfate. She did not present with chest pain or dyspnea, but had profound fatigue. She did not report any melena or hematochezia. She returned in Aug 2021 with hemoglobin 6.6. She received 2 more units of RBC and has been followed with every 2 week CBC since that time on daily oral iron. She denies dyspepsia or constipation on oral iron. Past history of hysterectomy age 23, no history of heavy menstrual bleeding, bleeding with surgeries, . She was on hormonal therapy post hysterectomy for about 2 years only. No history of thromboembolic disease. + for chronic constipation, prior atrial fibrillation s/p cardioversion last year. Chronic anticoagulation stopped due to severe anemia and she is being evaluated for a Watchman procedure. She was evaluated with upper and lower endoscopy in late Aug 2021 with subsequent capsular endoscopy 09/2021 revealing multiple sites of vascular ectasia--Dr. Jimenez treated gastric, small bowel, and cecal AVMs with gold probe. Dr. Granados recommended consideration of Octreotide LAR to prevent recurrent bleeding due to angiodysplasia. We discussed potential adverse reactions of cholecystitis, allergic reactions, dyspepsia. She agrees to proceed. Will contact her with repeat CBC/iron studies and consider parenteral iron if recurrent iron deficiency anemia. DIAGNOSIS: 1. Iron deficiency anemia due to chronic blood loss 2. Multiple AVMs (angiodysplasia) of gastric, proximal small bowel and cecum 09/15/2021 EGD/colonoscopy 3. Atrial fibrillation 4. COPD, prior 50+ pack year smoker, quit 02/2021 - Summary of Therapies Summary of Therapies: Octreotide LAR 20mg IM monthly ordered for AVMs--starting 10/2021. 03/05/2022: Injectafer 750 mg IV x2 doses ordered for iron saturation 14%, hemoglobin 8 04/23/2022: Injectafer 750 mg IV x2 doses ordered for iron saturation 12%, hemoglobin 7.6--patient declines bone marrow biopsy for further evaluation ROS Details: All systems reviewed & no additional complaints except as documented Subjective/ROS - Narrative: CONSTITUTIONAL: Worsening fatigue over the last 3 months, negative for fever or night sweats. HEAD AND NECK: Negative for changes in hearing and vision. Negative for mouth ulcers, nasal congestion and nasal drainage. PULMONARY: Negative for chest pain, cough and dyspnea. CARDIOVASCULAR: Negative for claudication and negative for irregular heartbeat/palpitations (improved after prior cardioversion). GASTROINTESTINAL: Positive for new persistent epigastric abdominal pain, decreased appetite, and constipation having 1 bowel movement per day on MiraLAX. No diarrhea, nausea or vomiting. + for known AVM. Stable stools on octreotide, recent worsening anemia. GENITOURINARY: Negative for dysuria and hematuria. ENDOCRINE: Negative for cold intolerance and heat intolerance. CENTRAL NERVOUS SYSTEM: Negative for gait disturbance and headache. No focal neurologic deficits. PSYCHIATRIC: Negative for anxiety or depression. DERMATOLOGICAL: Negative for pruritus and rash. Negative for suspicious skin lesions. MUSCULOSKELETAL: Negative for back pain and bone/joint symptoms. HEMATOLOGICAL: Negative for bleeding and easy bruising. Negative for history of thromboembolic disease. Multiple recent RBC transfusions (none prior to last year). ALLERGY: Negative for environmental allergies and food allergies. [facility] - History Attestation statement: The following information was validated with the patient. Source: Old Records Reviewed - Medical History Medical History: Medical History (Last Reviewed 04/23/22 @ 08:36 by Bell Camargo MD) Atrial fibrillation COPD (chronic obstructive pulmonary disease) Former smoker Hypothyroidism Iron deficiency anemia Kidney stones X 6 episodes Palpitations Pneumonia - Surgical History Surgical History: Surgical History (Last Reviewed 04/23/22 @ 08:36 by Bell Camargo MD) History of bladder suspension procedure History of hysterectomy History of tonsillectomy and adenoidectomy Hx of cholecystectomy - Family History Family History: Family History (Last Reviewed 04/23/22 @ 08:36 by Bell Camargo MD) Brother Fibromyalgia Heart disease Bone cancer Father Heart disease Myocardial infarct Sister Stroke Mother Suicide - Social History Smoking Status: Former smoker Tobacco Type: cigarettes Substance Use Type: None Home Medications & Allergies Allergies No Known Drug Allergies Allergy (Verified 04/23/22 08:06) Unknown Reaction Home Medications multivitamin 1 tab PO DAILY supplement 06/01/19 [History Confirmed 04/23/22] nitroglycerin 0.4 mg sublingual tablet 0.4 mg sublingual Q5-15M PRN Chest Pain 08/01/19 [History Confirmed 04/23/22] levothyroxine 88 mcg tablet 88 mcg PO DAILY 04/14/21 [History Confirmed 04/23/22] propafenone 150 mg tablet 150 mg PO Q8H 30 days #90 tabs 04/15/21 [Rx Confirmed 04/23/22] amlodipine 5 mg tablet 5 mg PO DAILY 09/15/21 [History Confirmed 04/23/22] furosemide 40 mg tablet 20 mg PO DAILY 09/15/21 [History Confirmed 04/23/22] methocarbamol 500 mg tablet 500 mg PO BID PRN Muscle Spasm 09/15/21 [History Confirmed 04/23/22] tramadol 50 mg tablet 50 mg PO BID PRN Back Pain 10/30/21 [History Confirmed 04/23/22] Objective - Height/Weight Height/Weight: Height 5 ft 4 in Weight 74.843 kg - Vital Signs Vital Signs: 04/23/22 08:07 Temperature 97.8 F Pulse Rate [Left Brachial] 60 Respiratory Rate 16 Blood Pressure [Left Arm] 142/75 H 02 Sat by Pulse Oximetry 99 Oxygen Delivery Method Room Air - Pain Back Pain Intensity: 6 Physical Exam Narrative: CONSTITUTIONAL: The patient is in no acute distress. HEAD / FACE: Normocephalic. EYES: Pupils are equal and reactive to light. Conjunctivae and lids are benign in appearance. Ocular movement intact. Positive mucosal pallor. EARS: Hearing grossly intact. NOSE / MOUTH / THROAT: Nose, mouth, tongue and oropharynx are benign in appearance. No signs of inflammation. NECK / THYROID: Neck is supple. Thyroid is symmetrical, without thyromegaly, masses or palpable nodules. LYMPHATIC: No palpable cervical, supraclavicular, axillary, or inguinal adenopathy. RESPIRATORY: Normal to inspection. Lungs clear to auscultation and percussion. No wheezing, rales, rhonchi or rubs. Normal effort. CARDIOVASCULAR: Regular rate and rhythm. No murmurs, gallops, or rubs. VASCULAR: Carotid, radial, femoral and pedal pulses present bilaterally. No bruits. ABDOMEN: Bowel sounds normoactive. Soft, nontender and non-distended. No hepatosplenomegaly. No masses. GENITOURINARY: No CVA tenderness. No suprapubic fullness or tenderness. No groinadenopathy. No evidence of hernias. INTEGUMENTARY: The skin is unremarkable. No rashes. No suspicious lesions BACK / SPINE: The back is nontender. MUSCULOSKELETAL: Normal musculature, no joint deformities or abnormalities, normal range of motion for all four extremities. EXTREMITIES: No edema, cyanosis or clubbing. No Coretta sign. NEUROLOGICAL: Alert and oriented. Cranial nerves intact. No gross motor or sensory deficits. PSYCHIATRIC: No anxiety or evidence of depression. - ECOG Performance Status ECOG Score: 1 Results - Labs Labs: Diagram of Most Recent CBC and CMP 04/17/22 08:30 Labs - Last 7 Days 04/17/22 10:17: Blood Type Recheck A Positive 04/17/22 09:10: Iron 40, TIBC 328, Iron Saturation 12.0 L, Transferrin 234, Ferritin 77.8 04/17/22 08:30: Corrected WBC 5.8, Uncorrected WBC Count 5.8, RBC 2.30 L, Hgb 7.6 L, Hct 23.6 L, MCV 102.3 H, MCH 33.1, MCHC 32.4, RDW 16.2 H, Plt Count 339, MPV 8.3, Neut % (Auto) N/A, Lymph % (Auto) N/A, [place] % (Auto) N/A, Eos % (Auto) N/A, Baso % (Auto) N/A, Neut # (Auto) N/A, Lymph # (Auto) N/A, [place] # (Auto) N/A, Eos # (Auto) N/A, Baso # (Auto) N/A, Nucleated RBC % (auto) 0.2, Lymphocytes % 19, Monocytes % 12 H, Eosinophils % 5 H, Metamyelocytes % 2 H, Myelocytes % 2 H, Segmented Neutrophils 60, Platelet Estimate Normal, Plt Morphology Comment Normal, RBC Morphology N/A, Anisocytosis Slight, MacrocytosisSlight 04/17/22 08:30: Blood Type A Positive, Antibody Screen Negative, Crossmatch (AHG) See Detail - Impressions CT abdomen pelvis with contrast ordered due to epigastric tenderness with persistent anemia, rule out mass Assessment and Plan (1) Iron deficiency anemia Qualifiers: Iron deficiency anemia type: chronic blood loss Qualified Code(s): D50.0 - Iron deficiency anemia secondary to blood loss (chronic) This is a 77 year old lady who had severe iron deficiency anemia in late 2020, continued moderate anemia with EGD/colonoscopy/capsular endoscopy showing AVM/angiodysplasia. These lesions were treated with gold probe, but due to multiple lesions Dr. Granados recommended trial of Octreotide LAR 20mg IM monthly to decrease frequency of transfusions and hospitalizations due to severe anemia. Iexplained the pathophysiology of AVMs contributing to iron deficiency and she agrees to proceed. If she still has low iron stores on repeat testing despite daily oral ferrous sulfate, we will set up parenteral iron. Will f/u with me toreassess response to iron and octreotide and determine frequency of CBCs and iron infusions (for now, continue q2w CBC). 12/04/2021: Here for one month followup after starting Octreotide LAR 20mg IM monthly and oral iron. Iron saturation and ferritin are normal on 11/04/2021 labs. Energy and hemoglobin have continued to improve. Continue now monthly CBC with Octreotide LAR and f/u with me in 3 months with iron profile deferred unless recurrent symptomatic anemia. 03/05/2022: Patient has worsening fatigue and hemoglobin has declined to 8. Ironsaturation down to 14% with low normal ferritin 36. Unsure if this is iron deficiency or another cause of anemia. We will replete with Injectafer 750 mg IV x2 weekly doses and repeat labs in 6 weeks. If persistent anemia despite replete iron stores, we may need to evaluate with bone marrow biopsy to exclude myelodysplastic syndrome. Patient expressed understanding. 04/23/2022: Patient has persistent anemia with hemoglobin 7.6 despite Injectafer last week. Iron saturation is still 12% with normal ferritin 77. She also has reticulocyte count of 1.2% which is hypoproliferative for her degree of anemia. She will receive another round of Injectafer 750 mg x 2 weekly doses with repeatlabs in 4 weeks. Epigastric pain evaluated with CT abdomen pelvis to rule out mass. Okay to stop her daily oral iron. Moderate complexity consult over 30 minutes to address new symptoms. (2) Epigastric abdominal pain Patient has previously reported constipation and had documented AVMs but now notes some abdominal distention, epigastric pain, and recent lower extremity edema that is new (not obvious on exam today). We are working up with CT abdomen pelvis and will follow-up results by phone in 1 week. (3) Angiodysplasia of gastrointestinal tract Octreotide LAR 20mg IM every 28 days as noted above. 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 She has not noted increased bloodystools or black stools but continues to have decline in hemoglobin to 7.6 noted on labs 04/17/2022. Continue monthly octreotide LAR. (4) Atrial fibrillation status post cardioversion (5) COPD (chronic obstructive pulmonary disease) (6) Hypertension (7) Hypothyroidism - Time with Patient Time Spent with Patient (Follow Up Visit): 35 minutes - f/u labs and no abdominal pain symptoms, arrange Injectafer infusions Coordination of Care & Counseling Time: Greater than 50% of time spent with patient was for coordination of care (as documented) and [id number] counseling of patient and/or family. Dictated By: Bell Camargo MD DD/ 9 Signed By: <Electronically signed by MD Bell Camargo> 04/23/[address] [facility] Work Phone: Progress note Author [facility] November 27, 2022 10:37am Note Date/Time November 27, 2022 10:2 9am [facility] [place] [address] Hem/Onc Follow Up Note - OP Signed Patient: Terri Newton MR#: [id number] : 1945 Acct:[id number] Age/Sex: 77 / F Type: REG RCR Copies to: MD Ceasar Ferrari, DO~ Subjective Date/Time of Service: Date of Service: 11/27/2022 Time of Service: 10:28 Chief Complaint: Patient is here today for a 3 month follow up visit for iron deficiency anemia and go over labs HPI: 11/27/2022: Terri is here for follow-up for her iron deficiency anemia. She notes increased fatigue and dyspnea on exertion. She is having muscle cramps as well. Denies dark, tarry stool or other s/s of bleeding. Labs are reviewed and hgb is down to 7.3 with low iron- iron saturation 10.6% and ferritin 53. We will plan to replete with additional IV iron and continue her monthly Octreotide. She doesfeel the Octreotide has improved things overall. We will follow-up in 2 months with repeat labs. 08/28/2022: 3 month followup with recent increase in fatigue, but no bright red blood per rectum or melena. Maintains monthly Octreotide, no transfusions or hospitalizations. Labs reviewed from 08/25/2022: Hemoglobin currently low at 8.9, iron saturation 8.9% and ferritin normal 114. She continues oral B12/folicacid (insurance denies homocysteine test to determine if adequate replacement dosing). I will set up infusions of Injectafer 750mg IV x 2 weekly doses. 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 Low complexity 25 minute f/u visit. 05/27/2022: Terri presents for one month f/u to review labs after Injectafer. Notes improvement in fatigue and no new symptoms--denies bright red blood per rectum and continues monthly Octreotide LAR. Hemoglobin has improved from 7.4 to 9.3 but still not normal. Iron sat improved from 18% to 29% and ferritin from 54.9 to 353. B12 elevated to 5312 but folate low at 8.3. Platelets still ok 228,000. I again offered bone marrow biopsy which she declined. Since she did have some improvement after iron infusions and still has low folate 8.3, I will have her take oral folate 3mg po monthly with f/u labs and visit in 3 months. If still anemic at that time, she will reconsider bone marrow biopsy. Low complexity followup 25 minutes. 05/01/2022: Terri is here for one week followup to start Injectafer. Her CT Abdomen/Pelvis showed no abnormality in area of epigastric pain and distension. We will reevaluate iron studies after completing Injectafer, continue monthly Octreotide LAR. If persistent anemia despite normal iron stores, we may recommend bone marrow biopsy for further workup at that time. The patient will f/u 1 month, low complexity 20 minute followup visit. 04/23/2022: Terri continues to have fatigue and dyspnea on exertion. Despite receiving Injectafer 2 infusions over 2 weeks in late February, her hemoglobin returned this week at 7.6. She denies any visible melena or bright red blood per rectum. She has continued octreotide monthly with no improvement of her symptoms. She continues to have gaseous distention and has stopped oral iron. We offered bone marrow aspiration and biopsy and she again declined this today. She is concerned with persistent epigastric pain and weight gain with some lowerextremity edema. She has not had a previous abdomen/pelvic CT and on exam she has mildly increased bowel sounds with epigastric fullness. We will follow-up results by phone and determine if further work-up is needed. I am placing another orders for Injectafer 750mg IV x 2 doses due to iron sat 12% with normalferritin 77. Repeat iron studies in 4 weeks. Moderate complexity visit 30 minutes for new symptoms. 03/05/2022: Terri notes worsening fatigue and dyspnea on exertion. Her most recent hemoglobin is down to 8.0. She has been taking octreotide LAR 20 mg IM monthly with gaseous distention and light stools but no abdominal pain. Iron studies show low iron saturation 14% with low normal ferritin 36.2. We are setting up iron infusions with Injectafer 750 mg IV x 2 doses over 2 weeks. If she has persistent anemia after repletion of iron stores we may need to considerbone marrow biopsy for other causes of anemia such as myelodysplastic syndrome. Patient is in agreement with this plan and follow-up in the next 6 weeks for review of iron studies and CBC. 12/04/2021: Terri is here for followup after initiating Octreotide LAR 20mg IM monthly with weekly CBC. 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 She notes improving energy and weekly CBC over the past month shows gradually increasing hemoglobin (11/04 Hg 10.7, 12/01/2021 Hg 11). She also had f/u iron studies 11/04/2021 with normal iron saturation 23.3% with ferritin 37. She will continue monthly Octreotide IM, and I will change CBC to monthly prior to Octreotide LAR and f/u with me 02/2022. PREVIOUS HISTORY: Original consult 10/30/2021 This is a now 77 year old lady who reported severe anemia, presenting in 06/2021with a hemoglobin of 2.7. She received 5 units RBC and was discharged with daily ferrous sulfate. She did not present with chest pain or dyspnea, but had profound fatigue. She did not report any melena or hematochezia. She returned in Aug 2021 with hemoglobin 6.6. She received 2 more units of RBC and has been followed with every 2 week CBC since that time on daily oral iron. She denies dyspepsia or constipation on oral iron. Past history of hysterectomy age 23, no history of heavy menstrual bleeding, bleeding with surgeries, . She was on hormonal therapy post hysterectomy for about 2 years only. No history of thromboembolic disease. + for chronic constipation, prior atrial fibrillation s/p cardioversion last year. Chronic anticoagulation stopped due to severe anemia and she is being evaluated for a Watchman procedure. She was evaluated with upper and lower endoscopy in late Aug 2021 with subsequent capsular endoscopy 09/2021 revealing multiple sites of vascular ectasia--Dr. Jimenez treated gastric, small bowel, and cecal AVMs with gold probe. Dr. Granados recommended consideration of Octreotide LAR to prevent recurrent bleeding due to angiodysplasia. We discussed potential adverse reactions of cholecystitis, allergic reactions, dyspepsia. She agrees to proceed. Will contact her with repeat CBC/iron studies and consider parenteral iron if recurrent iron deficiency anemia. DIAGNOSIS: 1. Iron deficiency anemia due to chronic blood loss 2. Multiple AVMs (angiodysplasia) of gastric, proximal small bowel and cecum 09/15/2021 EGD/colonoscopy 3. Atrial fibrillation 4. COPD, prior 50+ pack year smoker, quit 02/2021 - Summary of Therapies Summary of Therapies: Octreotide LAR 20mg IM monthly ordered for AVMs--starting 10/2021. 03/05/2022: Injectafer 750 mg IV x2 doses ordered for iron saturation 14%, hemoglobin 8 04/23/2022: Injectafer 750 mg IV x2 doses ordered for iron saturation 12%, hemoglobin 7.6--patient declines bone marrow biopsy for further evaluation 08/28/2022: Repeat Injectafer 750 mg IV x2 doses ordered for iron saturation 8.6%, hemoglobin 8.9 11/27/2022: Plan repeat Injectafer 750mg x 2 ROS Details: All systems reviewed & no additional complaints except as documented PMFSH - Medical History Medical History: Medical History (Last Reviewed 08/29/22 @ 10:36 by Bell Camargo MD) Atrial fibrillation COPD (chronic obstructive pulmonary disease) Former smoker Hypothyroidism Iron deficiency anemia Kidney stones X 6 episodes Palpitations Pneumonia - Surgical History Surgical History: Surgical History (Last Reviewed 08/29/22 @ 10:36 by Bell Camargo MD) History of bladder suspension procedure History of hysterectomy History of tonsillectomy and adenoidectomy Hx of cholecystectomy - Family History Family History: Family History (Last Reviewed 08/29/22 @ 10:36 by Bell Camargo MD) Brother Fibromyalgia Heart disease Bone cancer Father Heart disease Myocardial infarct Sister Stroke Mother Suicide - Social History Smoking Status: Former smoker Tobacco Type: cigarettes Substance Use Type: None Home Medications & Allergies Allergies No Known Drug Allergies Allergy (Verified 11/27/22 10:10) Unknown Reaction Home Medications multivitamin 1 tab PO DAILY supplement 06/01/19 [History Confirmed 11/27/22] nitroglycerin 0.4 mg sublingual tablet 0.4 mg sublingual Q5-15M PRN Chest Pain 08/01/19 [History Confirmed 11/27/22] levothyroxine 88 mcg tablet 88 mcg PO DAILY 04/14/21 [History Confirmed 11/27/22] propafenone 150 mg tablet 150 mg PO Q8H 30 days #90 tabs 04/15/21 [Rx Confirmed 11/27/22] amlodipine 5 mg tablet 5 mg PO DAILY 09/15/21 [History Confirmed 11/27/22] furosemide 40 mg tablet 20 mg PO DAILY 09/15/21 [History Confirmed 11/27/22] methocarbamol 500 mg tablet 500 mg PO BID PRN Muscle Spasm 09/15/21 [History Confirmed 11/27/22] tramadol 50 mg tablet 50 mg PO BID PRN Back Pain 10/30/21 [History Confirmed 11/27/22] folic acid 1 mg tablet 3 mg PO DAILY 30 days #90 tabs 05/28/22 [Rx Confirmed 11/27/22] vitamin B12 500 mcg-folic acid 400 mcg tablet 1 tab PO DAILY 05/28/22 [History Confirmed 11/27/22] Objective - Height/Weight Height/Weight: Height 5 ft 4 in Weight 73.028 kg - Vital Signs Vital Signs: 11/27/22 10:10 Temperature 97.0 F L Pulse Rate [Right Brachial] 61 Respiratory Rate 16 Blood Pressure [Right Arm] 123/52 L 02 Sat by Pulse Oximetry 100 Oxygen Delivery Method Room Air - Pain Back Pain Intensity: 6 Physical Exam Narrative: CONSTITUTIONAL: The patient is in no acute distress. HEAD / FACE: Normocephalic. RESPIRATORY: Normal to inspection. Lungs clear to auscultation and percussion. No wheezing, rales, rhonchi or rubs. Normal effort. CARDIOVASCULAR: Regular rate and rhythm. No murmurs, gallops, or rubs. ABDOMEN: Bowel sounds normoactive. Soft, nontender and non-distended. No hepatosplenomegaly. No masses. INTEGUMENTARY: The skin is unremarkable. No rashes. No suspicious lesions EXTREMITIES: No edema, cyanosis or clubbing. NEUROLOGICAL: Alert and oriented. Cranial nerves intact. No gross motor or sensory deficits. PSYCHIATRIC: No anxiety or evidence of depression. She has a small grape sized nodule on her left buttock that is nontender. Most likely scar tissue from her Octreotide shots, no erythema or edema. Is not fixed. Results - Labs Labs: Diagram of Most Recent CBC and CMP 04/30/22 11:14 04/30/22 11:14 Assessment and Plan (1) Iron deficiency anemia Qualifiers: Iron deficiency anemia type: chronic blood loss Qualified Code(s): D50.0 - Iron deficiency anemia secondary to blood loss (chronic) This is a 77 year old lady who had severe iron deficiency anemia in late 2020, continued moderate anemia with EGD/colonoscopy/capsular endoscopy showing AVM/angiodysplasia. These lesions were treated with gold probe, but due to multiple lesions Dr. Granados recommended trial of Octreotide LAR 20mg IM monthly to decrease frequency of transfusions and hospitalizations due to severe anemia. I explained the pathophysiology of AVMs contributing to iron deficiency and sheagrees to proceed. If she still has low iron stores on repeat testing despite daily oral ferrous sulfate, we will set up parenteral iron. Will f/u with me toreassess response to iron and octreotide and determine frequency of CBCs and iron infusions (for now, continue q2w CBC). 12/04/2021: Here for one month followup after starting Octreotide LAR 20mg IM monthly and oral iron. Iron saturation and ferritin are normal on 11/04/2021 labs. Energy and hemoglobin have continued to improve. Continue now monthly CBC with Octreotide LAR and f/u with me in 3 months with iron profile deferred unless recurrent symptomatic anemia. 03/05/2022: Patient has worsening fatigue and hemoglobin has declined to 8. Ironsaturation down to 14% with low normal ferritin 36. Unsure if this is iron deficiency or another cause of anemia. We will replete with Injectafer 750 mg IV x2 weekly doses and repeat labs in 6 weeks. If persistent anemia despite replete iron stores, we may need to evaluate with bone marrow biopsy to exclude myelodysplastic syndrome. Patient expressed understanding. 04/23/2022: Patient has persistent anemia with hemoglobin 7.6 despite Injectafer last week. Iron saturation is still 12% with normal ferritin 77. She also has reticulocyte count of 1.2% which is hypoproliferative for her degree of anemia. She will receive another round of Injectafer 750 mg x 2 weekly doses with repeatlabs in 4 weeks. Epigastric pain evaluated with CT abdomen pelvis to rule out mass. Okay to stop her daily oral iron. 04/30/2022: Abdomen/Pelvis CT with no concerning finding. Will receive first Injectafer of 2 today. Reeval with CBC and iron studies with exam in one month. If normal iron stores with persistent low hemoglobin, consider bone marrow biopsy at that time. 05/28/2022: Improved but persistent macrocytic anemia with replete iron stores on followup labs. We will start folic acid 3mg po daily for low folate. She agrees if persistent anemia at 3 month followup she will reconsider bone marrow biopsy. She agrees with this plan. Low complexity followup over 25 minutes to review followup labs after iron infusion. 08/28/2022: Recurrent fatigue--no obvious rectal bleeding noted by patient on monthly Octreotide. Homocysteine level to assess response to folic acid and [id number] by insurance. Again has anemia 8.9 with iron sat 8.6%--agrees to repeat infusion of Injectafer 750mg IV x 2 weeks (has been getting this about once every 4 months). 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 Low complexity followup over 25 minutes to review followup labs and coordinate repeat iron infusions. 11/27/2022: She has recurrent symptoms of GRZEGORZ with fatigue, dyspnea and muscle cramping. No s/s of bleeding. Her labs reveal low iron with saturation 10.6%, ferritin 53 and hgb 7.3. We will plan for IV iron repletion in addition to her Octreotide injections. Follow-up will be in 2 months with repeat cbc, cmp, iron studies. She is in agreement with this plan and has no questions. (2) Folate deficiency anemia, unspecified Qualifiers: Folate deficiency anemia type: unspecified folate deficiency Qualified Code(s): D52.9 - Folate deficiency anemia, unspecified Persistent macrocytic anemia with folate deficiency by followup labs 05/25/2022. We added oral folate 3mg daily and ordered labs for 3 month methylmalonic acid and homocysteine at the time of repeat iron studies were declined by insurance. For now continue current supplementation. 11/27/2022: She continues on folic acid supplementation (3) Angiodysplasia of gastrointestinal tract Octreotide LAR 20mg IM every 28 days as noted above. 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 She denied increased bloody stools or black stools but continued to have decline in hemoglobin to 8.9 noted on labs 08/25/2022. Continue monthly octreotide LAR with further iron repletion (4) Atrial fibrillation status post cardioversion (5) COPD (chronic obstructive pulmonary disease) (6) Hypertension (7) Hypothyroidism - Time with Patient Time Spent with Patient (Follow Up Visit): 25 minutes - f/u labs and Injectafer infusions Coordination of Care & Counseling Time: Greater than 50% of time spent with patient was for coordination of care (as documented) and [id number] counseling of patient and/or family. Dictated By: Nusrat Bundy APRN DD/ 1028 Signed By: <Electronically signed by LESLY Bundy> 11/27/22 1037 [facility] Work Phone: Progress note Author Bell Camargo [facility] March 10, 2023 4:39pm Note Date/Time March 10, 2023 10:3 3am [facility] [place] [address] Hem/Onc Follow Up Note - OP Signed Patient: Terri Newton MR#: [id number] : 1945 Acct:[id number] Age/Sex: 77 / F Type: REG RCR Copies to: MD Ceasar Ferrari DO~ Subjective Date/Time of Service: Date of Service: 03/10/2023 Time of Service: 10:32 Chief Complaint: Patient is here today for a 6 week follow up visit for iron deficiency anemia HPI: 03/10/2023: 6-week follow-up for iron deficiency anemia after IV iron repletion in mid January. She continues monthly octreotide LAR. She notes some improvement of fatigue since iron infusions but followup labs at [place] show ongoing anemia with hemoglobin 8.1, iron saturation 10.6, and ferritin normal 158.0. She denies visible bright red blood per rectum or melena. She continues monthlyoctreotide LAR 30mg IM and has not had admissions or transfusions. At this time, we will schedule Injectafer 750mg IV weekly x 2 monthly with surveillance CBC/iron profile/ferritin--will hold iron infusions if Hemoglobin normal, iron saturation >20, and ferritin >20. Next f/u for exam and review of labs in 3 months, sooner prn. Low complexity 25 minute followup. 01/27/2023: Terri presents for follow-up for her iron deficiency anemia. She has been having fatigue and dyspnea on exertion still along with continued muscle cramps. She denies any s/s of bleeding or other new complaints. Labs reveal hgb 7.4, iron saturation 8.7% and ferritin 84. She will be set up for IV iron repletion and will follow-up in 6wks, sooner as needed. 11/27/2022: Terri is here for follow-up for her iron deficiency anemia. She notes increased fatigue and dyspnea on exertion. She is having muscle cramps as well. Denies dark, tarry stool or other s/s of bleeding. Labs are reviewed and hgb is down to 7.3 with low iron- iron saturation 10.6% and ferritin 53. We will plan to replete with additional IV iron and continue her monthly Octreotide. She doesfeel the Octreotide has improved things overall. We will follow-up in 2 months with repeat labs. 08/28/2022: 3 month followup with recent increase in fatigue, but no bright red blood per rectum or melena. Maintains monthly Octreotide, no transfusions or hospitalizations. Labs reviewed from 08/25/2022: Hemoglobin currently low at 8.9, iron saturation 8.9% and ferritin normal 114. She continues oral B12/folicacid (insurance denies homocysteine test to determine if adequate replacement dosing). I will set up infusions of Injectafer 750mg IV x 2 weekly doses. 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 Low complexity 25 minute f/u visit. 05/27/2022: Terri presents for one month f/u to review labs after Injectafer. Notes improvement in fatigue and no new symptoms--denies bright red blood per rectum and continues monthly Octreotide LAR. Hemoglobin has improved from 7.4 to 9.3 but still not normal. Iron sat improved from 18% to 29% and ferritin from 54.9 to 353. B12 elevated to 5312 but folate low at 8.3. Platelets still ok 228,000. I again offered bone marrow biopsy which she declined. Since she did have some improvement after iron infusions and still has low folate 8.3, I will have her take oral folate 3mg po monthly with f/u labs and visit in 3 months. If still anemic at that time, she will reconsider bone marrow biopsy. Low complexity followup 25 minutes. 05/01/2022: Terri is here for one week followup to start Injectafer. Her CT Abdomen/Pelvis showed no abnormality in area of epigastric pain and distension. We will reevaluate iron studies after completing Injectafer, continue monthly Octreotide LAR. If persistent anemia despite normal iron stores, we may recommend bone marrow biopsy for further workup at that time. The patient will f/u 1 month, low complexity 20 minute followup visit. 04/23/2022: Terri continues to have fatigue and dyspnea on exertion. Despite receiving Injectafer 2 infusions over 2 weeks in late February, her hemoglobin returned this week at 7.6. She denies any visible melena or bright red blood per rectum. She has continued octreotide monthly with no improvement of her symptoms. She continues to have gaseous distention and has stopped oral iron. We offered bone marrow aspiration and biopsy and she again declined this today. She is concerned with persistent epigastric pain and weight gain with some lowerextremity edema. She has not had a previous abdomen/pelvic CT and on exam she has mildly increased bowel sounds with epigastric fullness. We will follow-up results by phone and determine if further work-up is needed. I am placing another orders for Injectafer 750mg IV x 2 doses due to iron sat 12% with normalferritin 77. Repeat iron studies in 4 weeks. Moderate complexity visit 30 minutes for new symptoms. 03/05/2022: Terri notes worsening fatigue and dyspnea on exertion. Her most recent hemoglobin is down to 8.0. She has been taking octreotide LAR 20 mg IM monthly with gaseous distention and light stools but no abdominal pain. Iron studies show low iron saturation 14% with low normal ferritin 36.2. We are setting up iron infusions with Injectafer 750 mg IV x 2 doses over 2 weeks. If she has persistent anemia after repletion of iron stores we may need to considerbone marrow biopsy for other causes of anemia such as myelodysplastic syndrome. Patient is in agreement with this plan and follow-up in the next 6 weeks for review of iron studies and CBC. 12/04/2021: Terri is here for followup after initiating Octreotide LAR 20mg IM monthly with weekly CBC. 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 She notes improving energy and weekly CBC over the past month shows gradually increasing hemoglobin (11/04 Hg 10.7, 12/01/2021 Hg 11). She also had f/u iron studies 11/04/2021 with normal iron saturation 23.3% with ferritin 37. She will continue monthly Octreotide IM, and I will change CBC to monthly prior to Octreotide LAR and f/u with me 02/2022. PREVIOUS HISTORY: Original consult 10/30/2021 This is a now 77 year old lady who reported severe anemia, presenting in 06/2021with a hemoglobin of 2.7. She received 5 units RBC and was discharged with daily ferrous sulfate. She did not present with chest pain or dyspnea, but had profound fatigue. She did not report any melena or hematochezia. She returned in Aug 2021 with hemoglobin 6.6. She received 2 more units of RBC and has been followed with every 2 week CBC since that time on daily oral iron. She denies dyspepsia or constipation on oral iron. Past history of hysterectomy age 23, no history of heavy menstrual bleeding, bleeding with surgeries, . She was on hormonal therapy post hysterectomy for about 2 years only. No history of thromboembolic disease. + for chronic constipation, prior atrial fibrillation s/p cardioversion last year. Chronic anticoagulation stopped due to severe anemia and she is being evaluated for a Watchman procedure. She was evaluated with upper and lower endoscopy in late Aug 2021 with subsequent capsular endoscopy 09/2021 revealing multiple sites of vascular ectasia--Dr. Jimenez treated gastric, small bowel, and cecal AVMs with gold probe. Dr. Granados recommended consideration of Octreotide LAR to prevent recurrent bleeding due to angiodysplasia. We discussed potential adverse reactions of cholecystitis, allergic reactions, dyspepsia. She agrees to proceed. Will contact her with repeat CBC/iron studies and consider parenteral iron if recurrent iron deficiency anemia. DIAGNOSIS: 1. Iron deficiency anemia due to chronic blood loss 2. Multiple AVMs (angiodysplasia) of gastric, proximal small bowel and cecum 09/15/2021 EGD/colonoscopy 3. Atrial fibrillation 4. COPD, prior 50+ pack year smoker, quit 02/2021 - Summary of Therapies Summary of Therapies: Octreotide LAR 20mg IM monthly ordered for AVMs--starting 10/2021. 03/05/2022: Injectafer 750 mg IV x2 doses ordered for iron saturation 14%, hemoglobin 8 04/23/2022: Injectafer 750 mg IV x2 doses ordered for iron saturation 12%, hemoglobin 7.6--patient declines bone marrow biopsy for further evaluation 08/28/2022: Repeat Injectafer 750 mg IV x2 doses ordered for iron saturation 8.6%, hemoglobin 8.9 11/27/2022: Repeat Injectafer 750mg x 2 and 01/2023. Plan monthly Injectafer x 6 months after 02/2023 visit. ROS Details: All systems reviewed & no additional complaints except as documented Subjective/ROS - Narrative: CONSTITUTIONAL: Persistent fatigue since April 2022 Injectafer infusions, negative for fever or night sweats. HEAD AND NECK: Negative for changes in hearing and vision. Negative for mouth ulcers, nasal congestion and nasal drainage. PULMONARY: Negative for chest pain, cough and dyspnea. CARDIOVASCULAR: Negative for claudication and negative for irregular heartbeat/palpitations (improved after prior cardioversion). GASTROINTESTINAL: Improved epigastric abdominal pain, decreased appetite, and constipation having 1 bowel movement per day on MiraLAX. No diarrhea, nausea orvomiting. + for known AVM. Stable stools on octreotide, recent worsening anemia. GENITOURINARY: Negative for dysuria and hematuria. ENDOCRINE: Negative for cold intolerance and heat intolerance. CENTRAL NERVOUS SYSTEM: Negative for gait disturbance and headache. No focal neurologic deficits. PSYCHIATRIC: Negative for anxiety or depression. DERMATOLOGICAL: Negative for pruritus and rash. Negative for suspicious skin lesions. MUSCULOSKELETAL: Negative for back pain or other bone/joint symptoms. HEMATOLOGICAL: Negative for bleeding and easy bruising. Negative for history of thromboembolic disease. Multiple recent RBC transfusions (none prior to last year). ALLERGY: Negative for environmental allergies and food allergies. PMFSH - History Attestation statement: The following information was validated with the patient. Source: Old Records Reviewed - Medical History Medical History: Medical History (Last Reviewed 03/10/23 @ 10:33 by Bell Camargo MD) Atrial fibrillation COPD (chronic obstructive pulmonary disease) Former smoker Hypothyroidism Iron deficiency anemia Kidney stones X 6 episodes Palpitations Pneumonia - Surgical History Surgical History: Surgical History (Last Reviewed 03/10/23 @ 10:33 by Bell Camargo MD) History of bladder suspension procedure History of hysterectomy History of tonsillectomy and adenoidectomy Hx of cholecystectomy - Family History Family History: Family History (Last Reviewed 03/10/23 @ 10:33 by Bell Camargo MD) Brother Fibromyalgia Heart disease Bone cancer Father Heart disease Myocardial infarction Sister Stroke Mother Suicide - Social History Smoking Status: Former smoker Tobacco Type: cigarettes Substance Use Type: None Home Medications & Allergies Allergies No Known Drug Allergies Allergy (Verified 03/10/23 10:19) Unknown Reaction Home Medications multivitamin 1 tab PO DAILY supplement 06/01/19 [History Confirmed 03/10/23] nitroglycerin 0.4 mg sublingual tablet 0.4 mg sublingual Q5-15M PRN Chest Pain 08/01/19 [History Confirmed 03/10/23] levothyroxine 88 mcg tablet 88 mcg PO DAILY 04/14/21 [History Confirmed 03/10/23] propafenone 150 mg tablet 150 mg PO Q8H 30 days #90 tabs 04/15/21 [Rx Confirmed 03/10/23] amlodipine 5 mg tablet 5 mg PO DAILY 09/15/21 [History Confirmed 03/10/23] furosemide 40 mg tablet 20 mg PO DAILY 09/15/21 [History Confirmed 03/10/23] methocarbamol 500 mg tablet 500 mg PO BID PRN Muscle Spasm 09/15/21 [History Confirmed 03/10/23] tramadol 50 mg tablet 50 mg PO BID PRN Back Pain 10/30/21 [History Confirmed 03/10/23] folic acid 1 mg tablet 3 mg PO DAILY 30 days #90 tabs 05/28/22 [Rx Confirmed 03/10/23] vitamin B12 500 mcg-folic acid 400 mcg tablet 1 tab PO DAILY 05/28/22 [History Confirmed 03/10/23] Objective - Height/Weight Height/Weight: Height 5 ft 4 in Weight 68.039 kg BSA for Today's Weight 1.78 - Vital Signs Vital Signs: 03/10/23 10:20 Temperature 97.5 F L Pulse Rate [Left Brachial] 56 L Pulse Rate [Right Brachial] 56 L Respiratory Rate 16 Blood Pressure [Right Arm] 117/53 L 02 Sat by Pulse Oximetry 100 Oxygen Delivery Method Room Air - Pain Back Pain Intensity: 6 Physical Exam Narrative: CONSTITUTIONAL: The patient is in no acute distress. HEAD / FACE: Normocephalic. RESPIRATORY: Normal to inspection. Lungs clear to auscultation and percussion. No wheezing, rales, rhonchi or rubs. Normal effort. CARDIOVASCULAR: Regular rate and rhythm. No murmurs, gallops, or rubs. ABDOMEN: Bowel sounds normoactive. Soft, nontender and non-distended. No hepatosplenomegaly. No masses. INTEGUMENTARY: The skin is unremarkable. No rashes. No suspicious lesions EXTREMITIES: No edema, cyanosis or clubbing. NEUROLOGICAL: Alert and oriented. Cranial nerves intact. No gross motor or sensory deficits. PSYCHIATRIC: No anxiety or evidence of depression.. - ECOG Performance Status ECOG Score: 1 Results - Labs Labs: Diagram of Most Recent CBC and CMP 04/30/22 11:14 04/30/22 11:14 Outside Labs: 03/08/2023: Na 142, K 4.2, BUN 32, Creat 1.64, Glu 78, Ca 8.9, Glu 78, TB 0.2, AST 16, ALT 16, ALP 100, TP 7.2, Alb 3.8 WBC 4,600, Hg 8.1, Hct 26, Platelets 278,000---ANC 2800 Iron 30, Iron sat 10.6%, Ferritin 158 - Impressions No new imaging for review. Assessment and Plan (1) Iron deficiency anemia Qualifiers: Iron deficiency anemia type: chronic blood loss Qualified Code(s): D50.0 - Iron deficiency anemia secondary to blood loss (chronic) This is a 77 year old lady who had severe iron deficiency anemia in late 2020, continued moderate anemia with EGD/colonoscopy/capsular endoscopy showing AVM/angiodysplasia. These lesions were treated with gold probe, but due to multiple lesions Dr. Granados recommended trial of Octreotide LAR 20mg IM monthly to decrease frequency of transfusions and hospitalizations due to severe anemia. I explained the pathophysiology of AVMs contributing to iron deficiency and sheagrees to proceed. If she still has low iron stores on repeat testing despite daily oral ferrous sulfate, we will set up parenteral iron. Will f/u with me toreassess response to iron and octreotide and determine frequency of CBCs and iron infusions (for now, continue q2w CBC). 12/04/2021: Here for one month followup after starting Octreotide LAR 20mg IM monthly and oral iron. Iron saturation and ferritin are normal on 11/04/2021 labs. Energy and hemoglobin have continued to improve. Continue now monthly CBC with Octreotide LAR and f/u with me in 3 months with iron profile deferred unless recurrent symptomatic anemia. 03/05/2022: Patient has worsening fatigue and hemoglobin has declined to 8. Ironsaturation down to 14% with low normal ferritin 36. Unsure if this is iron deficiency or another cause of anemia. We will replete with Injectafer 750 mg IV x2 weekly doses and repeat labs in 6 weeks. If persistent anemia despite replete iron stores, we may need to evaluate with bone marrow biopsy to exclude myelodysplastic syndrome. Patient expressed understanding. 04/23/2022: Patient has persistent anemia with hemoglobin 7.6 despite Injectafer last week. Iron saturation is still 12% with normal ferritin 77. She also has reticulocyte count of 1.2% which is hypoproliferative for her degree of anemia. She will receive another round of Injectafer 750 mg x 2 weekly doses with repeatlabs in 4 weeks. Epigastric pain evaluated with CT abdomen pelvis to rule out mass. Okay to stop her daily oral iron. 04/30/2022: Abdomen/Pelvis CT with no concerning finding. Will receive first Injectafer of 2 today. Reeval with CBC and iron studies with exam in one month. If normal iron stores with persistent low hemoglobin, consider bone marrow biopsy at that time. 05/28/2022: Improved but persistent macrocytic anemia with replete iron stores on followup labs. We will start folic acid 3mg po daily for low folate. She agrees if persistent anemia at 3 month followup she will reconsider bone marrow biopsy. She agrees with this plan. Low complexity followup over 25 minutes to review followup labs after iron infusion. 08/28/2022: Recurrent fatigue--no obvious rectal bleeding noted by patient on monthly Octreotide. Homocysteine level to assess response to folic acid and [id number] by insurance. Again has anemia 8.9 with iron sat 8.6%--agrees to repeat infusion of Injectafer 750mg IV x 2 weeks (has been getting this about once every 4 months). 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 Low complexity followup over 25 minutes to review followup labs and coordinate repeat iron infusions. 11/27/2022: She has recurrent symptoms of GRZEGORZ with fatigue, dyspnea and muscle cramping. No s/s of bleeding. Her labs reveal low iron with saturation 10.6%, ferritin 53 and hgb 7.3. We will plan for IV iron repletion in addition to her Octreotide injections. Follow-up will be in 2 months with repeat cbc, cmp, iron studies. She is in agreement with this plan and has no questions. 01/27/2023: She continues to have symptoms and labs reveal low iron studies. We will replete with IV Injectafer and follow-up in 6 weeks to assess response. Shecontinues Octreotide as well 03/10/2023: Persistent anemia and iron sat 10% despite iron infusions in 08/2022,11/2022, and 01/2023. Known history of angiodysplasia without visible blood in stool. Due to persistent anemia and iron deficiency, I recommend monthly iron infusions with Injectafer until hemoglobin and iron saturation/ferritin normalizes. If persistent anemia with normal iron stores, we may workup with bone marrow biopsy to evaluate for angiodysplasia. Next f/u in 3 months. Low complexity 25 minute followup. (2) Folate deficiency anemia, unspecified Qualifiers: Folate deficiency anemia type: unspecified folate deficiency Qualified Code(s): D52.9 - Folate deficiency anemia, unspecified Persistent macrocytic anemia with folate deficiency by followup labs 05/25/2022. We added oral folate 3mg daily and ordered labs for 3 month methylmalonic acid and homocysteine at the time of repeat iron studies were declined by insurance. For now continue current supplementation. 03/10/2023: She continues on folic acid supplementation. Will check methylmalonic acid and homocysteine with 3 month followup labs. (3) Angiodysplasia of gastrointestinal tract Octreotide LAR 20mg IM every 28 days as noted above. 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 She denied increased bloody stools or black stools but continued to have decline in hemoglobin to 8.9 noted on labs 08/25/2022. Continue monthly octreotide LAR with further iron repletion (4) Atrial fibrillation status post cardioversion Rate controlled, followup primary care. (5) COPD (chronic obstructive pulmonary disease) (6) Hypertension (7) Hypothyroidism - Time with Patient Time Spent with Patient (Follow Up Visit): 25 minutes - f/u labs and Injectafer infusions Coordination of Care & Counseling Time: Greater than 50% of time spent with patient was for coordination of care (as documented) and [id number] counseling of patient and/or family. Dictated By: Bell Camargo MD DD/ 1032 Signed By: <Electronically signed by MD Bell Camargo> 03/10/23 1633 [facility] Work Phone: Progress note Author Jess[facility] June 10, 2023 10:16am Note Date/Time June 10, 2023 9 :53am [facility] [place] [address] Hem/Onc Follow Up Note - OP Signed Patient: Terri Newton MR#: [id number] : 1945 Acct:[id number] Age/Sex: 78 / F Type: REG RCR Copies to: MD Ceasar Ferrari DO~ Subjective Date/Time of Service: Date of Service: 06/10/2023 Time of Service: 09:52 Chief Complaint: Patient is here for a 3 month follow up. Scheduled for Injectafer today. HPI: 06/10/2023: Terri is here for interval 3 month follow up; no receiving monthly iron infusions since February 2023. Clinically, she is doing well; most recent labs indicate persistent anemia with hgb of 10.3 and iron saturation of 17%. She has no other concerning constitutional symptoms such as weight loss, fever/chills, night sweats, abdominal pain or early satiety. She does not endorse any obvious GI blood loss such as melena, hematochezia or BRBPR. She feels much better and improved with iron infusions and this is well tolerated. Furthermore, monthly octreotide injections at 30 mg continue and these are also well tolerated. 03/10/2023: 6-week follow-up for iron deficiency anemia after IV iron repletion in mid January. She continues monthly octreotide LAR. She notes some improvement of fatigue since iron infusions but followup labs at [place] show ongoing anemia with hemoglobin 8.1, iron saturation 10.6, and ferritin normal 158.0. She denies visible bright red blood per rectum or melena. She continues monthlyoctreotide LAR 30mg IM and has not had admissions or transfusions. At this time, we will schedule Injectafer 750mg IV weekly x 2 monthly with surveillance CBC/iron profile/ferritin--will hold iron infusions if Hemoglobin normal, iron saturation >20, and ferritin >20. Next f/u for exam and review of labs in 3 months, sooner prn. 01/27/2023: Terri presents for follow-up for her iron deficiency anemia. She has been having fatigue and dyspnea on exertion still along with continued muscle cramps. She denies any s/s of bleeding or other new complaints. Labs reveal hgb 7.4, iron saturation 8.7% and ferritin 84. She will be set up for IV iron repletion and will follow-up in 6wks, sooner as needed. 11/27/2022: Terri is here for follow-up for her iron deficiency anemia. She notes increased fatigue and dyspnea on exertion. She is having muscle cramps as well. Denies dark, tarry stool or other s/s of bleeding. Labs are reviewed and hgb is down to 7.3 with low iron- iron saturation 10.6% and ferritin 53. We will plan to replete with additional IV iron and continue her monthly Octreotide. She doesfeel the Octreotide has improved things overall. We will follow-up in 2 months with repeat labs. 08/28/2022: 3 month followup with recent increase in fatigue, but no bright red blood per rectum or melena. Maintains monthly Octreotide, no transfusions or hospitalizations. Labs reviewed from 08/25/2022: Hemoglobin currently low at 8.9, iron saturation 8.9% and ferritin normal 114. She continues oral B12/folicacid (insurance denies homocysteine test to determine if adequate replacement dosing). I will set up infusions of Injectafer 750mg IV x 2 weekly doses. 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 Low complexity 25 minute f/u visit. 05/27/2022: Terri presents for one month f/u to review labs after Injectafer. Notes improvement in fatigue and no new symptoms--denies bright red blood per rectum and continues monthly Octreotide LAR. Hemoglobin has improved from 7.4 to 9.3 but still not normal. Iron sat improved from 18% to 29% and ferritin from 54.9 to 353. B12 elevated to 5312 but folate low at 8.3. Platelets still ok 228,000. I again offered bone marrow biopsy which she declined. Since she did have some improvement after iron infusions and still has low folate 8.3, I will have her take oral folate 3mg po monthly with f/u labs and visit in 3 months. If still anemic at that time, she will reconsider bone marrow biopsy. Low complexity followup 25 minutes. 05/01/2022: Terri is here for one week followup to start Injectafer. Her CT Abdomen/Pelvis showed no abnormality in area of epigastric pain and distension. We will reevaluate iron studies after completing Injectafer, continue monthly Octreotide LAR. If persistent anemia despite normal iron stores, we may recommend bone marrow biopsy for further workup at that time. The patient will f/u1 month, low complexity 20 minute followup visit. 04/23/2022: Terri continues to have fatigue and dyspnea on exertion. Despite receiving Injectafer 2 infusions over 2 weeks in late February, her hemoglobin returned this week at 7.6. She denies any visible melena or bright red blood per rectum. She has continued octreotide monthly with no improvement of her symptoms. She continues to have gaseous distention and has stopped oral iron. We offered bone marrow aspiration and biopsy and she again declined this today. She is concerned with persistent epigastric pain and weight gain with some lowerextremity edema. She has not had a previous abdomen/pelvic CT and on exam she has mildly increased bowel sounds with epigastric fullness. We will follow-up results by phone and determine if further work-up is needed. I am placing another orders for Injectafer 750mg IV x 2 doses due to iron sat 12% with normalferritin 77. Repeat iron studies in 4 weeks. Moderate complexity visit 30 minutes for new symptoms. 03/05/2022: Terri notes worsening fatigue and dyspnea on exertion. Her most recent hemoglobin is down to 8.0. She has been taking octreotide LAR 20 mg IM monthly with gaseous distention and light stools but no abdominal pain. Iron studies show low iron saturation 14% with low normal ferritin 36.2. We are setting up iron infusions with Injectafer 750 mg IV x 2 doses over 2 weeks. If she has persistent anemia after repletion of iron stores we may need to considerbone marrow biopsy for other causes of anemia such as myelodysplastic syndrome. Patient is in agreement with this plan and follow-up in the next 6 weeks for review of iron studies and CBC. 12/04/2021: Terri is here for followup after initiating Octreotide LAR 20mg IM monthly with weekly CBC. 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 She notes improving energy and weekly CBC over the past month shows gradually increasing hemoglobin (11/04 Hg 10.7, 12/01/2021 Hg 11). She also had f/u iron studies 11/04/2021 with normal iron saturation 23.3% with ferritin 37. She will continue monthly Octreotide IM, and I will change CBC to monthly prior to Octreotide LAR and f/u with me 02/2022. PREVIOUS HISTORY: Original consult 10/30/2021 This is a now 77 year old lady who reported severe anemia, presenting in 06/2021with a hemoglobin of 2.7. She received 5 units RBC and was discharged with daily ferrous sulfate. She did not present with chest pain or dyspnea, but had profound fatigue. She did not report any melena or hematochezia. She returned in Aug 2021 with hemoglobin 6.6. She received 2 more units of RBC and has been followed with every 2 week CBC since that time on daily oral iron. She denies dyspepsia or constipation on oral iron. Past history of hysterectomy age 23, no history of heavy menstrual bleeding, bleeding with surgeries, . She was on hormonal therapy post hysterectomy for about 2 years only. No history of thromboembolic disease. + for chronic constipation, prior atrial fibrillation s/p cardioversion last year. Chronic anticoagulation stopped due to severe anemia and she is being evaluated for a Watchman procedure. She was evaluated with upper and lower endoscopy in late Aug 2021 with subsequent capsular endoscopy 09/2021 revealing multiple sites of vascular ectasia--Dr. Jimenez treated gastric, small bowel, and cecal AVMs with gold probe. Dr. Granados recommended consideration of Octreotide LAR to prevent recurrent bleeding due to angiodysplasia. We discussed potential adverse reactions of cholecystitis, allergic reactions, dyspepsia. She agrees to proceed. Will contact her with repeat CBC/iron studies and consider parenteral iron if recurrent iron deficiency anemia. DIAGNOSIS: 1. Iron deficiency anemia due to chronic blood loss 2. Multiple AVMs (angiodysplasia) of gastric, proximal small bowel and cecum 09/15/2021 EGD/colonoscopy 3. Atrial fibrillation 4. COPD, prior 50+ pack year smoker, quit 02/2021 - Summary of Therapies Summary of Therapies: Octreotide LAR 20mg IM monthly ordered for AVMs--starting 10/2021. 03/05/2022: Injectafer 750 mg IV x2 doses ordered for iron saturation 14%, hemoglobin 8 04/23/2022: Injectafer 750 mg IV x2 doses ordered for iron saturation 12%, hemoglobin 7.6--patient declines bone marrow biopsy for further evaluation 08/28/2022: Repeat Injectafer 750 mg IV x2 doses ordered for iron saturation 8.6%, hemoglobin 8.9 11/27/2022: Repeat Injectafer 750mg x 2 and 01/2023. Plan monthly Injectafer x 6 months after 02/2023 visit. ROS Details: All systems reviewed & no additional complaints except as documented Subjective/ROS - Narrative: CONSTITUTIONAL: Persistent fatigue since April 2022 Injectafer infusions, negative for fever or night sweats. HEAD AND NECK: Negative for changes in hearing and vision. Negative for mouth ulcers, nasal congestion and nasal drainage. PULMONARY: Negative for chest pain, cough and dyspnea. CARDIOVASCULAR: Negative for claudication and negative for irregular heartbeat/palpitations (improved after prior cardioversion). GASTROINTESTINAL: Improved epigastric abdominal pain, decreased appetite, and constipation having 1 bowel movement per day on MiraLAX. No diarrhea, nausea orvomiting. + for known AVM. Stable stools on octreotide, recent worsening anemia. GENITOURINARY: Negative for dysuria and hematuria. ENDOCRINE: Negative for cold intolerance and heat intolerance. CENTRAL NERVOUS SYSTEM: Negative for gait disturbance and headache. No focal neurologic deficits. PSYCHIATRIC: Negative for anxiety or depression. DERMATOLOGICAL: Negative for pruritus and rash. Negative for suspicious skin lesions. MUSCULOSKELETAL: Negative for back pain or other bone/joint symptoms. HEMATOLOGICAL: Negative for bleeding and easy bruising. Negative for history of thromboembolic disease. Multiple recent RBC transfusions (none prior to last year). ALLERGY: Negative for environmental allergies and food allergies. [facility] - Medical History Medical History: Medical History (Last Reviewed 03/10/23 @ 10:33 by Bell Camargo MD) Atrial fibrillation COPD (chronic obstructive pulmonary disease) Former smoker Hypothyroidism Iron deficiency anemia Kidney stones X 6 episodes Palpitations Pneumonia - Surgical History Surgical History: Surgical History (Last Reviewed 03/10/23 @ 10:33 by Bell Camargo MD) History of bladder suspension procedure History of hysterectomy History of tonsillectomy and adenoidectomy Hx of cholecystectomy - Family History Family History: Family History (Last Reviewed 03/10/23 @ 10:33 by Bell Camargo MD) Brother Fibromyalgia Heart disease Bone cancer Father Heart disease Myocardial infarction Sister Stroke Mother Suicide - Social History Smoking Status: Former smoker Tobacco Type: cigarettes Substance Use Type: None Home Medications & Allergies Allergies No Known Drug Allergies Allergy (Verified 03/10/23 10:19) Unknown Reaction Home Medications multivitamin 1 tab PO DAILY supplement 06/01/19 [History Confirmed 06/10/23] nitroglycerin 0.4 mg sublingual tablet 0.4 mg sublingual Q5-15M PRN Chest Pain 08/01/19 [History Confirmed 06/10/23] levothyroxine 88 mcg tablet 88 mcg PO DAILY 04/14/21 [History Confirmed 06/10/23] propafenone 150 mg tablet 150 mg PO Q8H 30 days #90 tabs 04/15/21 [Rx Confirmed 06/10/23] furosemide 40 mg tablet 20 mg PO DAILY 09/15/21 [History Confirmed 06/10/23] methocarbamol 500 mg tablet 500 mg PO BID PRN Muscle Spasm 09/15/21 [History Confirmed 06/10/23] tramadol 50 mg tablet 50 mg PO BID PRN Back Pain 10/30/21 [History Confirmed 06/10/23] folic acid 1 mg tablet 3 mg PO DAILY 30 days #90 tabs 05/28/22 [Rx Confirmed 06/10/23] vitamin B12 500 mcg-folic acid 400 mcg tablet 1 tab PO DAILY 05/28/22 [History Confirmed 06/10/23] Objective - Resuscitation Status Resuscitation Status: Full Code - Height/Weight Height/Weight: Height 5 ft 4 in Weight 61.144 kg BSA for Today's Weight 1.78 - Vital Signs Vital Signs: 06/10/23 09:25 Temperature 97.6 F Pulse Rate [Right Brachial] 55 L Respiratory Rate 16 Blood Pressure [Right Arm] 124/50 L 02 Sat by Pulse Oximetry 99 Oxygen Delivery Method Room Air - Pain Back Pain Intensity: 4 Physical Exam Narrative: CONSTITUTIONAL: The patient is in no acute distress. HEAD / FACE: Normocephalic. RESPIRATORY: Normal to inspection. Lungs clear to auscultation and percussion. No wheezing, rales, rhonchi or rubs. Normal effort. CARDIOVASCULAR: Regular rate and rhythm. No murmurs, gallops, or rubs. ABDOMEN: Bowel sounds normoactive. Soft, nontender and non-distended. No hepatosplenomegaly. No masses. INTEGUMENTARY: The skin is unremarkable. No rashes. No suspicious lesions EXTREMITIES: No edema, cyanosis or clubbing. NEUROLOGICAL: Alert and oriented. Cranial nerves intact. No gross motor or sensory deficits. PSYCHIATRIC: No anxiety or evidence of depression.. - ECOG Performance Status ECOG Score: 0 Results - Labs Labs: Diagram of Most Recent CBC and CMP 05/26/23 10:40 04/30/22 11:14 Assessment and Plan (1) Iron deficiency anemia Qualifiers: Iron deficiency anemia type: chronic blood loss Qualified Code(s): D50.0 - Iron deficiency anemia secondary to blood loss (chronic) This is a 77 year old lady who had severe iron deficiency anemia in late 2020, continued moderate anemia with EGD/colonoscopy/capsular endoscopy showing AVM/angiodysplasia. These lesions were treated with gold probe, but due to multiple lesions Dr. Granados recommended trial of Octreotide LAR 20mg IM monthly to decrease frequency of transfusions and hospitalizations due to severe anemia. I explained the pathophysiology of AVMs contributing to iron deficiency and sheagrees to proceed. If she still has low iron stores on repeat testing despite daily oral ferrous sulfate, we will set up parenteral iron. Will f/u with me toreassess response to iron and octreotide and determine frequency of CBCs and iron infusions (for now, continue q2w CBC). 12/04/2021: Here for one month followup after starting Octreotide LAR 20mg IM monthly and oral iron. Iron saturation and ferritin are normal on 11/04/2021 labs. Energy and hemoglobin have continued to improve. Continue now monthly CBC with Octreotide LAR and f/u with me in 3 months with iron profile deferred unless recurrent symptomatic anemia. 03/05/2022: Patient has worsening fatigue and hemoglobin has declined to 8. Ironsaturation down to 14% with low normal ferritin 36. Unsure if this is iron deficiency or another cause of anemia. We will replete with Injectafer 750 mg IV x2 weekly doses and repeat labs in 6 weeks. If persistent anemia despite replete iron stores, we may need to evaluate with bone marrow biopsy to exclude myelodysplastic syndrome. Patient expressed understanding. 04/23/2022: Patient has persistent anemia with hemoglobin 7.6 despite Injectafer last week. Iron saturation is still 12% with normal ferritin 77. She also has reticulocyte count of 1.2% which is hypoproliferative for her degree of anemia. She will receive another round of Injectafer 750 mg x 2 weekly doses with repeatlabs in 4 weeks. Epigastric pain evaluated with CT abdomen pelvis to rule out mass. Okay to stop her daily oral iron. 04/30/2022: Abdomen/Pelvis CT with no concerning finding. Will receive first Injectafer of 2 today. Reeval with CBC and iron studies with exam in one month. If normal iron stores with persistent low hemoglobin, consider bone marrow biopsy at that time. 05/28/2022: Improved but persistent macrocytic anemia with replete iron stores on followup labs. We will start folic acid 3mg po daily for low folate. She agrees if persistent anemia at 3 month followup she will reconsider bone marrow biopsy. She agrees with this plan. Low complexity followup over 25 minutes to review followup labs after iron infusion. 08/28/2022: Recurrent fatigue--no obvious rectal bleeding noted by patient on monthly Octreotide. Homocysteine level to assess response to folic acid and [id number] by insurance. Again has anemia 8.9 with iron sat 8.6%--agrees to repeat infusion of Injectafer 750mg IV x 2 weeks (has been getting this about once every 4 months). 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 Low complexity followup over 25 minutes to review followup labs and coordinate repeat iron infusions. 11/27/2022: She has recurrent symptoms of GRZEGORZ with fatigue, dyspnea and muscle cramping. No s/s of bleeding. Her labs reveal low iron with saturation 10.6%, ferritin 53 and hgb 7.3. We will plan for IV iron repletion in addition to her Octreotide injections. Follow-up will be in 2 months with repeat cbc, cmp, iron studies. She is in agreement with this plan and has no questions. 01/27/2023: She continues to have symptoms and labs reveal low iron studies. We will replete with IV Injectafer and follow-up in 6 weeks to assess response. Shecontinues Octreotide as well 03/10/2023: Persistent anemia and iron sat 10% despite iron infusions in 08/2022,11/2022, and 01/2023. Known history of angiodysplasia without visible blood in stool. Due to persistent anemia and iron deficiency, I recommend monthly iron infusions with Injectafer until hemoglobin and iron saturation/ferritin normalizes. If persistent anemia with normal iron stores, we may workup with bone marrow biopsy to evaluate for angiodysplasia. Next f/u in 3 months. 06/10/2023: Terri is here for interval 3 month follow up; no receiving monthly iron infusions since February 2023. Clinically, she is doing well; most recent labs indicate persistent anemia with hgb of 10.3 and iron saturation of 17%. She has no other concerning constitutional symptoms such as weight loss, fever/chills, night sweats, abdominal pain or early satiety. She does not endorse any obvious GI blood loss such as melena, hematochezia or BRBPR. She feels much better and improved with iron infusions and this is well tolerated. Furthermore, monthly octreotide injections at 30 mg continue and these are also well tolerated. Has not required blood transfusion since: March 2022. o continue monthly Injectafer and monthly Octreotide. o next follow up in 3 months (2) Folate deficiency anemia, unspecified Qualifiers: Folate deficiency anemia type: unspecified folate deficiency Qualified Code(s): D52.9 - Folate deficiency anemia, unspecified Persistent macrocytic anemia with folate deficiency by followup labs 05/25/2022. We added oral folate 3mg daily and ordered labs for 3 month methylmalonic acid and homocysteine at the time of repeat iron studies were declined by insurance. For now continue current supplementation. 03/10/2023: She continues on folic acid supplementation. Will check methylmalonic acid and homocysteine with 3 month followup labs. 06/10/2023: I cannot see where she had methylmalonic acid and homocysteine levels drawn. Will add these on to be drawn prior to next follow up. (3) Angiodysplasia of gastrointestinal tract Octreotide LAR 20mg IM every 28 days as noted above. 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 She denied increased bloody stools or black stools but continued to have decline in hemoglobin to 8.9 noted on labs 08/25/2022. Continue monthly octreotide LAR with further iron repletion (4) Atrial fibrillation status post cardioversion Rate controlled, followup primary care. (5) COPD (chronic obstructive pulmonary disease) (6) Hypertension (7) Hypothyroidism - Time with Patient Time Spent with Patient (Follow Up Visit): 25 minutes Coordination of Care & Counseling Time: Greater than 50% of time spent with patient was for coordination of care (as documented) and [id number] counseling of patient and/or family. Dictated By: Jessika Alexander APRN DD/ [id number] Signed By: <Electronically signed by LESLY Alexander> 06/10/23 1016 [facility] Work Phone: Summary Purpose Family History No Family History Records Found Relationship Condition Age at Onset Recorded Date/T emerald brother Fibromyalgia Unknown Heart disease Unknown Malignant neoplasm of bone Unknown father Heart disease Unknown Myocardial infarction Unknown sister Cerebrovascular accident (CVA) Unknown Not Specified Suicide Unknown Unknown Family Member Name Dates Details Family history of arterioscl erotic cardiovascular disease: Father(V17.49, Z82.49) Status:Active Family history of atrial fib rillation: Sister, Brother(V17.49, Z82.49) Status:Active Family history of hypertensi on: Sister, Brother(V17.49, Z82.49) Status:Active Family history of myocardial infarction: Father(V17.3, Z82.49) Status:Active Unknown Family Member Name Dates Details Family history of arterioscl erotic cardiovascular disease: Father(V17.49, Z82.49) Status:Active Family history of atrial fib rillation: Sister, Brother(V17.49, Z82.49) Status:Active Family history of hypertensi on: Sister, Brother(V17.49, Z82.49) Status:Active Family history of myocardial infarction: Father(V17.3, Z82.49) Status:Active Unknown Family Member Name Dates Details Family history of arterioscl erotic cardiovascular disease: Father(V17.49, Z82.49) Status:Active Family history of atrial fib rillation: Sister, Brother(V17.49, Z82.49) Status:Active Family history of hypertensi on: Sister, Brother(V17.49, Z82.49) Status:Active Family history of myocardial infarction: Father(V17.3, Z82.49) Status:Active Unknown Family Member Name Dates Details Family history of myocardial infarction: Father(V17.3, Z82.49) Status:Active Family history of hypertensi on: Sister, Brother(V17.49, Z82.49) Status:Active Family history of atrial fib rillation: Sister, Brother(V17.49, Z82.49) Status:Active Family history of arterioscl erotic cardiovascular disease: Father(V17.49, Z82.49) Status:Active Relationship Condition Age at Onset Recorded Date/T emerald brother Fibromyalgia Unknown Heart disease Unknown Malignant neoplasm of bone Unknown father Heart disease Unknown Myocardial infarction Unknown sister Cerebrovascular accident (CVA) Unknown Not Specified Suicide Unknown brother Malignant neoplasm Unknown Unknown family member Family history of other condition Unknow n Not Specified Unknown natural son Diabetes mellitus Unknown sister Malignant neoplasm Unknown Advance Directives No Advanced Directives Records Found Advance Directive Response Recorded Date/ Time Advance Directives No June 01, 2019 11:56pm Advance Directive Response Recorded Date/ Time Advance Directives No June 01, 2019 10:56pm Chief Complaint and Reason for Visit Chief Complaint Iron Deficiency Anem ia Reason for Visit Epigastric abdominal pain Angiodysplasia of gastrointestinal tract Atrial fibrillation status post cardioversion COPD (chronic obstructive pulmonary disease) Hypertension Hypothyroidism Iron deficiency anemia Chief Complaint Iron Deficiency Anem ia Reason for Visit Angiodysplasia of ga strointestinal tract Atrial fibrillation status post cardioversion COPD (chronic obstructive pulmonary disease) Epigastric abdominal pain Hypertension Hypothyroidism Iron deficiency anemia Chief Complaint Iron Deficiency Anem ia Reason for Visit Angiodysplasia of ga strointestinal tract Atrial fibrillation status post cardioversion COPD (chronic obstructive pulmonary disease) Epigastric abdominal pain Folate deficiency anemia, unspecified Hypertension Hypothyroidism Iron deficiency anemia Chief Complaint Waiting In Car - Up er Respiratory Iron Deficiency Anemia Reason for Visit Angiodysplasia of ga strointestinal tract Atrial fibrillation status post cardioversion COPD (chronic obstructive pulmonary disease) Epigastric abdominal pain Folate deficiency anemia, unspecified Hypertension Hypothyroidism Iron deficiency anemia Chief Complaint Follow Up Iron Deficiency Anemia Left eye irritation Reason for Visit 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 of gastrointestinal tract Atrial fibrillation status post cardioversion Iron deficiency anemia Angiodysplasia of gastrointestinal tract Atrial fibrillation status post cardioversion COPD (chronic obstructive pulmonary disease) Epigastric abdominal pain Folate deficiency anemia, unspecified Hypertension Hypothyroidism Iron deficiency anemia Additional Source Comments INFORMATION SOURCE (unrecogn ized section and content) DATE CREATED AUTHOR 07/02/2019 [facility] DATE CREATED AUTHOR AUTHOR'S ORGANIZ ATION 05/31/2020 [facility] DATE CREATED AUTHOR AUTHOR'S ORGANIZ ATION 12/04/2022 [facility] DATE CREATED AUTHOR AUTHOR'S ORGANIZ ATION 10/22/2023 [facility] DATE CREATED AUTHOR AUTHOR'S ORGANIZ ATION 01/24/2024 [facility] DATE CREATED AUTHOR AUTHOR'S ORGANIZ ATION 02/03/2024 [facility] REASON FOR VISIT (unrecogniz ed section and content) Reason Comments Med Refill SINUS CONGESTION, COUGH, BODYACHEwaiting in car - upper respiratoryPATIENT HERE WITH COMPLAINTS OF TROUBLE WITH BOWELS, patient states that when she does eat she does have a lot of gas, feeling of fullness, patient will have constipation and she will use miralax and this will cause her to have diarrhea.PATIENT HERE FOR FOLLOW UP EGD, COLONOSCOPY, CAPSULE ENDOSCOPY.capsule endoscopyClinicalRECENT HISTORY OF ACUTE GI BLEEDING Care Teams (unrecognized sec tion and content) Team Status: Active Member Role Status Dates Ceasar Dunn DO Primary Care Provider Active Team Status: Active Member Role Status Dates Ceasar Dunn DO Primary Care Provider Active Bell Camargo MD Attending Provider Active Jarrell Granados MD Referring Provider Active Team Status: Active Member Role Status Dates Jayy Lomas II MD Primary Care Provider Active Team Status: Inactive Member Role Status Dates Criss Nunez RN Attending Provider Active Start : August 08, 2023 End: August 08, 2023 Team Status: Inactive Member Role Status Dates Maggieqing Bundy APRN Attending Provider Acti ve Start: September 28, 2023 End: September 28, 2023 Jayy Lomas II MD Primary Care Provider Active Start: September 28, 2023 End: September 28, 2023 Team Status: Active Member Role Status Dates Bell Camargo MD Attending Provider Active Start: September 28, 2023 Jarrell Granados MD Referring Provider Active S tart: September 28, 2023 Jayy Lomas II MD Primary Care Provider Active Start: September 28, 2023 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 Start Date End Date Shaikh Reece MD PCP - General Internal Medicine 03/09/23 Team Status: Inactive Member Role Status Dates Bell Camargo MD Attending Provider Active Start: January 06, 2024 End: January 06, 2024 Jayy Lomas II MD Primary Care Provider Active Start: January 06, 2024 End: January 06, 2024 Team Status: Active Member Role Status Dates Bell Camargo MD Attending Provider Active Start: January 06, 2024 Jarrell Granados MD Referring Provider Active S tart: January 06, 2024 Jayy Lomas II MD Primary Care Provider Active Start: January 06, 2024 Team Status: Inactive Member Role Status Dates Jayy Lomas II MD Primary Care Provider Active Start: January 07, 2024 End: January 07, 2024 Vivian Marie APRN Attending Provider Active Start: January 07, 2024 End: January 07, 2024 Goals (unrecognized section and content) Goals may be documented in a n alternate section FOR RECORDS PERTAINING TO PATIENTS WHO ARE OR HAVE BEEN ENROLLED IN A CHEMICAL DEPENDENCY/SUBSTANCEABUSE PROGRAM, SOME INFORMATION MAY BE OMITTED. This clinical summary was aggregated from multiple sources. Caution should be exercised in using it in the provision of clinical care. This summary normalizes information from multiple sources, and as a consequence, information in this document may materially change the coding, format and clinical context of patient data. In addition, data may be omitted in some cases. CLINICAL DECISIONS SHOULD BE BASED ON THE PRIMARY CLINICAL RECORDS. [employer] provides no warranty or guarantee of the accuracy or completeness of information in this document.
--- NOTE | 2024-02-25 09:00 | CA_ITS ---
Patient Name: TERRI NEWTON MR#: [id number] : 1945 Exam Date: 02/25/2024 Ordering Doctor: GIGI CASON CNP ECHOCARDIOGRAM REPORT PROCEDURE: CA ECHO DOPPLER COMPLETE INDICATIONS: Atrial fibrillation, hypertension, smoker COMPARISON: None. DESCRIPTION: COMPLETE ECHOCARDIOGRAM Real-time transthoracic echocardiography with 2D, M-mode, spectral and color flow Doppler performed. QUALITY: Technical quality was good. LEFT VENTRICLE: Normal chamber size. Mild concentric left ventricular hypertrophy. Normal systolic function. LV EF: Normal left ventricular ejection fraction, (>55%). DIASTOLIC: Grade 2 diastolic dysfunction. ATRIAL SEPTUM: Aneurysmal atrial septum. Visually appears intact. LEFT ATRIUM: Severe dilatation. RIGHT ATRIUM: Normal chamber size. RIGHT VENTRICLE: Normal chamber size. Normal right ventricular systolic function. TRICUSPID VALVE: Normal mobility and thickness. No stenosis with trivial regurgitation. Unable to assess right-sided pressures due to lack of measurable tricuspid regurgitation. MITRAL VALVE: Normal mobility and thickness. No evidence of mitral valve stenosis. Moderate mitral annular calcification. Mild mitral regurgitation. AORTIC VALVE: Normal trileaflet appearance. Mildly calcified aortic valve. Mildly diminished mobility. No evidence of aortic valve stenosis. No aortic regurgitation. AORTIC ROOT: Normal diameter and appearance. Ascending aorta is normal in size. PULMONIC VALVE: Normal thickness and mobility. No stenosis. Trivial regurgitation. PERICARDIUM: No evidence of pericardial effusion. IVC: Collapses with inspirations. IVC is normal in size. PLEURA: CONCLUSION: 1. Mild concentric left ventricular hypertrophy with normal systolic function. LVEF is 55 to 60%. 2. Normal right ventricular size and systolic function. 3. Severely dilated left atrium. 4. Grade 2 diastolic dysfunction. 5. Mild mitral regurgitation. 6. No pericardial effusion. Adult Echocardiography Procedure Report Left Ventricle LVEDD (3.7 - 5.6 cm): 4.00 cm LVESD (2.2 - 4.0 cm): 2.91 cm LVIVS thickness (0.6 - 1.2 cm): 1.20 cm LVPW thickness (0.5 - 1.0 cm): 1.22 cm e': 0.10 m/s E - e': 8.92 LVOT Max Gradient: 3.73 mm[Hg] LVOT Area (cm2): 0.97 m/s Peak Velocity (LVOT): 0.97 m/s Mean Velocity (LVOT): 0.64 m/s LVOT Diameter 2.21 cm Left Atrium LA Volume Index (2D A2C): 77.72 ml/m2 Left Atrium Systolic Dimension: 4.76 cm Mitral Valve MV E to A Ratio: 1.30 Mitral Valve A-Wave Peak Velocity: 0.66 m/s Mitral Valve E-Wave Peak Velocity: 0.85 m/s Right Ventricle Aorta AO Root Diam: 2.82 cm Ascending Ao Diam: 2.83 cm Aortic Valve AoV Area (Peak Carlos): 2.52 cm2, 2.52 cm2 AoV Area (VTI): 2.68 cm2, 2.68 cm2 Peak Velocity(Antegrade Flow): 1.47 m/s Peak Gradient(Antegrade Flow): 8.67 mm[Hg] Mean Velocity(Antegrade Flow): 0.94 m/s Mean Gradient(Antegrade Flow): 4.16 mm[Hg] Velocity Time Integral: 39.19 cm Tricuspid Valve Pulmonic Valve Mean Gradient: 1.88 mm[Hg] Mean Velocity: 0.63 m/s Peak Velocity: 0.98 m/s, 0.87 m/s Peak Gradient: 3.01 mm[Hg], 3.81 mm[Hg] Right Atrium Right Atrium Systolic Pressure: 21.84 ml, 21.84 ml Dictated by: Osvaldo Lacy M.D. on 02/25/2024 at 20:16 Approved by: Osvaldo Lacy M.D. on 02/25/2024 at 20:20
== END 2024-02-25 08:47 | disposition home or self-care (01) ==
LOC: CARD 08:46
PROVIDERS: PCP Internal Medicine; Visit Provider Nurse Practitioner Family
DX: I48.0 Paroxysmal atrial fibrillation (principal)
CPT/HCPCS: 93306

== ENCOUNTER 2024-08-13 08:23 | Emergency (ER) | payer MEDICARE, OTHER, SELFPAY ==
[2024-08-13] VITALS (38 sets, daily range): BP systolic 85–159; BP diastolic 45–95; PULSE 57–79; TEMP 36.4; O2SAT 87–98; BMI 23.5
--- OUTSIDE RECORDS SUMMARY | 2024-08-13 08:34 | XMS_ITS | CCD ---
Author Organization [facility] Care Team Providers Care Metal Trimmer Name Role Phone CarlosAlem aquino Unavailable Jarrell Granados Unavailable DO Ceasar Dunn Primary Care Provider [phone] MD Bell Camargo Attending Provider MD Jarrell Granados Referring Provider [phone] DO Ceasar Dunn Primary Care Provider [phone] MD Bell Camargo Attending Provider MD Jarrell Granados Referring Provider [phone] Ceasar Dunn Unavailable Unavailable Unavailable DO Ceasar Dunn Primary Care Provider MD Bell Camargo Attending Provider [phone] MD Jarrell Granados Referring Provider DO Ceasar Dunn Primary Care Provider MD Bell Camargo Attending Provider MD Jarrell Granados Referring Provider DR BELL CAMARGO Attending Unavailable RAMAN, DR BELL Maldonado Admitting [...] GRECHNY ., JAIME DORADO Consulting Unavailabl e KLJHONNY, ALEM Consulting Unavailable TAMEKA, DR THERESA Wiley Consulting Unavailabl e REINECK, DR THERESA Wiley Attending Unavailabl e HOUSE, DR MCDONOUGH Primary Care Unavailable REINECK, DR THERESA Wiley Admitting Unavailabl e MARYLOU, ASIYA Consulting Unavailable HOUSE, DR MCDONOUGH Primary Care Unavailable RAMAN, DR BELL Maldonado Attending Unavailable RAMAN, DR BELL Maldonado Admitting Unavailable RAMAN, DR BELL Maldonado Consulting Unavailable Markell, DO Mcdonough Primary Care Provider [phone] MD Bell Camargo Attending Provider [phone] MD Jarrell Granados Referring Provider [phone] DO Ceasar Dunn Primary Care Provider MD Bell Camargo Attending Provider MD Jarrell Granados Referring Provider [phone] DO Ceasar Dunn Primary Care Provider MD Bell Camargo Attending Provider MD Jarrell Granados Referring Provider [phone] Criss Nunez Unavailable Tamar Alvarado Unavailable MD Bell Camargo Attending Provider MD Jarrell Granados Referring Provider IRINA Lomas Primary Care Provider Shaikh Reece MD Primary Care Provider MD Bell Camargo Attending Provider MD Jarrell Granados Referring Provider Abebe, II Jayy Primary Care Provider GIGI CASON Attending Unavailable GORDON VASQUEZ Attending Unavailable NINFA FAM Attending Unavailable MD Bell Camargo Attending Provider MD Jarrell Granados Referring Provider [phone] Abebe, II Jayy Primary Care Provider Shaikh Reece MD Primary Care Provider JAYY LOMAS Attending Unavailable [...] [Flecainide Acetate TABS] Drug Allergy Hives, Dizziness [facility] [place] [address] DO Work Phone: Medications Current Medications Medication Drug Class(es) Dates Sig (Normalized) Sig (Original) albuterol 0.83 mg/ml inhalation solution (20 sources) beta2-Adrenergic Agonist Start: 05-28-2023 albuterol (2.5 MG/3ML) 0.083% nebulizer solution Take 2.5 mg by nebulization every 4 (four) hours if needed 05/28/2023 Active Start: 04-14-2023 take 2 puff(s) by in halation every four hours albuterol HFA 90 mcg/act inhaler Inhale 2 puffs every 4 (four) hours if needed 04/14/2023 Active Albuterol Sulfat e (2.5 MG/3ML) 0.083% 3 mL as needed Inhalation every 6 hrs Active amLODIPine 5 mg oral tablet (20 sources) Dihydropyridine Calcium Channel Cameron Start: 06-25-2023 take 1 tablet by mouth in the morning amLODIPine (Norvasc) 5 MG tablet Take 5 mg by mouth in the morning. 06/25/2023 Active Start: 09-15-2021 End: 06-10-2023 take [...] Orally as directed for 5 Jul, Not-Taking/PRN benzonatate 100 mg oral capsule (2 sources) Non-narcotic Antitussive Start: 08-07-2024 take 1 capsule by mouth three times daily as needed for cough benzonatate (Tessalon Perles) 100 MG capsule Indications: COPD with acute exacerbation (CMS/HCC) Take 1 capsule (100 mg) by mouth 3 (three) times a day as needed for cough Do not crush or chew. 30 capsule 1 08/07/2024 Active Start: 08-07-2024 take 1 capsule by mo uth three times daily as needed for cough benzonatate (Tessalon Perles) 100 MG capsule Indications: COPD with acute exacerbation (CMS/HCC) Take 1 capsule (100 mg) by mouth 3 (three) times a day as needed for cough Do not crush or chew. 30 capsule 1 08/07/2024 Active cetirizine hydrochloride 10 mg oral tablet (10 sources) Histamine-1 Receptor Antagonist Start: 01-24-2024 End: 01-23-2025 take 1 tablet by mouth once daily cetirizine (ZyrTEC) 10 MG tablet Indications: Allergic urticaria Take 1 tablet (10 mg) by mouth Daily 30 tablet 11 01/24/2024 01/23/2025 Active doxycycline hyclate 100 mg oral capsule (1 source) Tetracycline-class Drug Start: 09-18-2023 take 1 capsule by mouth every twelve hours Doxycycline Hyclate 100 MG 1 capsule Orally Twice a day for 10 day(s) Aug, Active erythromycin 0.005 mg/mg ophthalmic ointment (1 source) Macrolide, Macrolide Antimicrobial Start: 01-07-2024 Erythromycin Active 1 APPLIC OPHTHALMIC Four times daily 3.5 7 January 07, 2024 12:00am to left eye folic acid 0.4 mg / vitamin b12 0.5 mg oral tablet (9 sources) Vitamin B12 Start: 05-28-2022 take 1 tablet by mouth once daily Vitamin [id number] Acid Active 1 TAB PO Daily May 28, 2022 12:00am administer with a meal furosemide 40 mg oral tablet (20 sources) Loop Diuretic Start: 06-25-2023 take 1 tablet by mouth in the morning furosemide (Lasix) 40 MG tablet Take 40 mg by mouth in the morning. 06/25/2023 Active Start: 09-15-2021 take 20 mg by mouth once daily Furosemide Active 20 MG PO Daily September 15, 2021 1:00am levoFLOXacin 500 mg oral tablet (12 sources) Quinolone Antimicrobial Start: 08-07-2024 End: 08-14-2024 take 1 tablet by mouth once daily levoFLOXacin (Levaquin) 500 MG tablet Indications: COPD with acute exacerbation (CMS/HCC) Take 1 tablet (500 mg) by mouth Daily for 7 days 7 tablet 08/07/2024 08/14/2024 Active Start: 06-01-2019 End: 06-04-2019 take 1 tablet by mouth once daily Levofloxacin Discontinued 1 TAB PO Daily June 01, 2019 12:00am June 04, 2019 11:45am levothyroxine sodium 0.112 mg oral tablet (20 sources) l-Thyroxine Start: 06-25-2023 End: 03-25-2024 take 1 tablet by mouth in the morning levothyroxine (Synthroid, Levoxyl) 112 MCG tablet Indications: Hypothyroidism, unspecified (CMS/HCC) TAKE 1 TABLET BY MOUTH IN THE MORNING 90 tablet 1 03/14/2024 Active Start: 04-14-2021 take 88 ug by mouth once daily Levothyroxine Active 88 MCG PO Daily April 14, 2021 12:00am Start: 07-28-2019 End: 04-14-2021 Levothyroxine (Synthroid) 75 mcg tablet Discontinued 88 MCG PO DAILY@0330 July 28, 2019 10:16am April 14, 2021 3:39pm Start: 06-04-2019 End: 07-28-2019 take 1 tablet by mouth once daily Levothyroxine (Synthroid) 75 mcg Tablet Discontinued 75 MCG PO DAILY@629June 04, 2019 12:00am July 28, 2019 10:17am [...] oral tablet (20 sources) Muscle Relaxant Start: 08-07-2024 take 1 tablet by mouth every eight hours for muscle spasms methocarbamol (Robaxin) 500 MG tablet Indications: Chronic bilateral low back pain without sciatica Take 1 tablet (500 mg) by mouth every 8 (eight) hours if needed for muscle spasms 30 tablet 1 08/07/2024 Active Start: 08-07-2024 take 1 tablet by meagan th every eight hours for muscle spasms methocarbamol (Robaxin) 500 MG tablet Indications: Chronic bilateral low back pain without sciatica Take 1 tablet (500 mg) by mouth every 8 (eight) hours if needed for muscle spasms 30 tablet 1 08/07/2024 Active Start: 06-25-2023 End: 08-07-2024 take 1 tablet by mouth every twenty-four hours as needed methocarbamol (Robaxin) 500 MG tablet Take 500 mg by mouth Daily as needed 06/25/2023 08/07/2024 Discontinued (Reorder) Start: 09-15-2021 take 500 mg by mouth twice daily Methocarbamol Active 500 MG PO Twice daily September 15, 2021 1:00am Robaxin 500 MG T ABS TAKE 1 TABLET 3 TIMES DAILY. Quantity: 0 Refills: 0 Ordered: 10-Jun-2021 DO Active methylPREDNISolone 4 mg oral tablet (13 sources) Corticosteroid Start: 08-08-2023 Medrol (Misbah) 4 [...] 12:00am June 04, 2019 11:45am Multivitamin preparation (10 sources) Start: 06-01-2019 take 1 tablet by mouth once daily Multivitamin Active 1 TAB PO Daily May 31, 2019 11:00pm Start: 06-01-2019 take 1 tablet by meagan th once daily Multivitamin Active 1 TAB PO Daily June 01, 2019 12:00am nitroglycerin 0.4 mg sublingual tablet (10 sources) Nitrate Vasodilator Start: 08-01-2019 Nitroglycerin Active 0.4 MG SUBLINGUAL every 5 to 15 minutes August 01, 2019 1:00am propafenone hydrochloride 150 mg oral tablet (20 sources) Antiarrhythmic Start: 04-15-2021 take 1 tablet by mouth in the morning propafenone (Rythmol) 150 MG tablet Take 150 mg by mouth in the morning and 150 mg before bedtime. Morning and bedtime. 06/25/2023 Active take 1 tablet by meagan th every twelve hours Propafenone HCl 150 MG 1 tablet Orally T WICE A DAY Active simethicone 80 mg chewable tablet (1 source) Start: 06-19-2022 take 1 tablet by mouth three times daily as needed Simethicone 80 MG 1 tablet Orally three times a day as needed for 30 day(s) May, Active traMADol hydrochloride 50 mg oral tablet (10 sources) Opioid Agonist Start: 10-30-2021 take 50 mg by mouth twice daily Tramadol Active 50 MG PO Twice daily October 30, 2021 1:00am 1 ml triamcinolone acetonide 40 mg/ml prefilled syringe (8 sources) Corticosteroid Start: 08-07-2024 End: 08-07-2024 triamcinolone acetonide (Kenalog-40) injection 40 mg Start: 08-07-2024 End: 08-07-2024 inject 40 mg by intramuscular injection once 40 mg, Intramuscular, Once, On Wed08/07/24 at 1345, For 1 dose Start: 08-07-2024 End: 08-07-2024 triamcinolone acetonide (Kenalog-40) injection 40 mg Start: 08-07-2024 End: 08-07-2024 inject 40 mg by intramuscular injection once 40 mg, Intramuscular, Once, On Wed08/07/24 at 1345, For 1 dose Start: 07-03-2024 End: 07-03-2024 triamcinolone acetonide (Kenalog-40) injection 40 mg Start: 07-03-2024 End: 07-03-2024 inject 40 mg by intramuscular injection once 40 mg, Intramuscular, Once, On Wed07/03/24 at 0930, For 1 dose Start: 07-03-2024 End: 07-03-2024 triamcinolone acetonide (Kenalog-40) injection 40 mg Start: 07-03-2024 End: 07-03-2024 inject 40 mg by intramuscular injection once 40 mg, Intramuscular, Once, On Wed07/03/24 at 0930, For 1 dose Completed/Discontinued Medications Medication Drug Class(es) Dates Sig (Normalized) Sig (Original) apixaban 5 mg oral tablet (14 sources) Factor Xa Inhibitor Start: 04-14-2021 End: 09-15-2021 take 1 tablet by mouth twice daily Apixaban (Eliquis) 5 mg Tablet Discontinued 5 MG PO Twice daily April 14, 2021 12:00am September 15, 2021 10:30am aspirin 81 mg delayed release oral tablet (20 sources) Platelet Aggregation Inhibitor, Nonsteroidal Anti-inflammatory Drug Start: 07-28-2019 End: 04-15-2021 Aspirin (Jackei Low Dose Aspirin) 81 mg Tablet,Delayed Release [...] 2019 11:45am cefdinir 300 mg oral capsule (10 sources) Cephalosporin Antibacterial Start: 06-04-2019 End: 07-28-2019 take 300 mg by mouth twice daily Cefdinir Discontinued 300 MG PO Twice daily 10 June 04, 2019 12:00am July 28, 2019 9:43am cephalexin 500 mg oral capsule (1 source) Cephalosporin Antibacterial Start: 01-07-2024 End: 05-11-2024 take 500 mg by mouth three times daily Cephalexin Discontinued 500 MG PO Three times daily 12 03January 07, 2024 12:00am May 11, 2024 9:58am ciprofloxacin 250 mg oral tablet (2 sources) Quinolone Antimicrobial Start: 07-03-2024 End: 07-08-2024 take 1 tablet by mouth in the morning ciprofloxacin (Cipro) 250 MG tablet Indications: Acute cystitis without hematuria Take 1 tablet (250 mg) by mouth in the morning and 1 tablet (250 mg) before bedtime. Do all this for 5 days. 10 tablet 07/03/2024 07/08/2024 24 hr dilTIAZem hydrochloride 120 mg extended release oral capsule (20 sources) Calcium Channel Cameron Start: 07-28-2019 End: [...] sulfate 325 mg delayed release oral tablet (15 sources) Start: 09-15-2021 End: 04-23-2022 take 325 mg by mouth once daily Ferrous Sulfate Discontinued 325 MG PO Daily September 15, 2021 1:00am April 23, 2022 8:06am take 1 tablet by mouth once [place] FeroSul 325 (65 Fe) MG TAKE 1 TABLET BY MOUTH DAILY Oral for 30 Active folic acid 1 mg oral tablet (20 sources) Start: 05-28-2022 End: 01-06-2024 take 3 [...] guaiFENesin 600 mg extended release oral tablet (10 sources) Start: 06-04-2019 End: 07-28-2019 take 1 [...] Active ipratropium bromide 0.2 mg/ml inhalation solution (10 sources) Anticholinergic Start: 06-04-2019 End: 07-28-2019 take 0.5 mg by inhalation four times daily Ipratropium [place] Discontinued 0.5 MG INHALATION Four times daily - Respiratory 150 June 04, 2019 12:22pm July 28, 2019 9:44am levalbuterol 0.417 mg/ml inhalation solution (10 sources) beta2-Adrenergic Agonist Start: 06-04-2019 End: 07-28-2019 take 1.25 mg by inhalation four times daily Levalbuterol Hcl Discontinued 1.25 MG INHALATION Four times daily - Respiratory 90 June 04, 2019 12:00am July 28, 2019 9:44am 24 hr metoprolol succinate 50 mg extended [...] omeprazole 40 mg delayed release oral capsule (15 sources) Proton Pump Inhibitor Start: 09-15-2021 End: 10-30-2021 take 40 mg by mouth once daily Omeprazole Discontinued 40 MG PO Daily September 15, 2021 1:00am October 30, 2021 2:03pm potassium chloride 10 meq extended release oral capsule (10 sources) Start: 08-01-2019 End: 04-14-2021 take 10 mEq by mouth once daily Potassium Chloride Discontinued 10 MEQ PO Daily August 01, 2019 1:00am April 14, 2021 3:39pm predniSONE 10 mg oral tablet (10 sources) Start: 06-04-2019 End: 07-28-2019 Prednisone Discontinued 10 MG PO Daily June 04, 2019 12:00am July 28, 2019 9:45am 40mg x 3, 30mg x 3, 20mg x 3, 10mg x 3 then stop valsartan 160 mg oral tablet (14 sources) Angiotensin 2 Receptor Cameron Start: 04-14-2021 End: 09-15-2021 take 160 mg by mouth twice daily Valsartan Discontinued 160 MG PO Twice daily April 14, 2021 12:00am September 15, 2021 10:30am Problems Active Problems Problem Classification Problem Date Documented Da te Episodic/Chronic Abdominal pain (20 sources) Epigastric pain; Translations: [Epigastric pain] 04-23-2022 Episodic Acute bronchitis (2 sources) Acute bronchitis, unspecified Episodic Allergic reactions (2 sources) Allergic disorder of skin; Translations: [Allergic contact dermatitis, unspecified cause] 07-03-2024 Episodic Cardiac dysrhythmias (20 sources) Atrial fibrillation; Translations: [Unspecified atrial fibrillation] Onset: 1 10-31-2021 Chronic Cardiac dysrhythmias (4 sources) Palpitations; Translations: [Palpitations] Episodic Chronic kidney disease (5 sources) Chronic kidney disease, unspecified; Translations: [Chronic kidney disease stage 3] Onset: 2 01-06-2024 Chronic Chronic kidney disease (2 sources) Chronic kidney disease; Translations: [Chronic kidney disease, stage 3b] Onset: 4 Chronic obstructive pulmonary disease and bronchiectasis (20 sources) Chronic obstructive lung disease; Translations: [Chronic obstructive pulmonary disease, unspecified] Onset: 1 12-04-2021 Chronic Deficiency and other anemia (1 source) Iron deficiency anemia secondary to blood loss (chronic); Translations: [Iron deficiency anemia secondary to blood loss (chronic)] Onset: 4 Chronic Deficiency and other anemia (19 sources) Iron deficiency anemia, unspecified; Translations: [Iron deficiency anemia, unspecified] Onset: 2 Resolved: 2 Episodic Deficiency and other anemia (8 sources) Nutritional anemia; Translations: [Folate deficiency anemia, unspecified] 08-29-2022 Episodic Deficiency and other anemia (8 sources) Folate deficiency anemia, unspecified; Translations: [Folate-deficiency anemia] 11-27-2022 Episodic Disorders of lipid metabolism (11 sources) Familial hyperchylomicronemia; 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] Onset: 8 07-28-2023 Chronic Essential hypertension (20 sources) Hypertensive disorder; Translations: [Essential (primary) hypertension] Onset: 1 10-31-2021 Chronic Heart valve disorders (9 sources) Non-rheumatic mitral regurgitation ; Translations: [Nonrheumatic mitral (valve) insufficiency] Onset: 4 07-03-2024 Chronic Immunizations and screening for infectious disease (2 sources) Needs influenza immunization; Translations: [Encounter for immunization] 07-03-2024 Episodic Inflammation; infection of eye (except that caused by tuberculosis or sexually transmitteddisease) (1 source) Internal hordeolum; Translations: [Hordeolum internum left eye, unspecified eyelid] 01-07-2024 Episodic Other aftercare (4 sources) Drug therapy finding; Translations: [Long-term (current) use of anticoagulants] Episodic Other and ill-defined heart disease (10 sources) Left atrial enlargement; Translations: [Cardiomegaly] Onset: 4 02-28-2024 Chronic Other circulatory disease (4 sources) Ectatic coronary artery; Translations: [Other specified disorders of arteries and arterioles] Chronic Other gastrointestinal disorders (10 sources) Disorder of gastrointestinal tract; Translations: [Angiodysplasia of colon without hemorrhage] 10-30-2021 Episodic Other gastrointestinal disorders (17 sources) Angiodysplasia of colon without hemorrhage; Translations: [Angiodysplasia of intestine (without mention of hemorrhage)] Onset: 2 04-23-2022 Episodic Other gastrointestinal disorders (2 sources) Other specified symptoms and signs involving the digestive system and abdomen Episodic Other gastrointestinal disorders (1 source) Flatulence Episodic Other gastrointestinal disorders (1 source) Diarrhea, unspecified Episodic Other hematologic conditions (10 sources) High troponin I level; Translations: [Other specified abnormalities of plasma proteins] 10-30-2021 Episodic Other injuries and conditions due to external causes (4 sources) At risk for falls ; Translations: [History of fall] Episodic Other nutritional; endocrine; and metabolic disorders (11 sources) Obesity; Translations: [Obesity, unspecified] Onset: 1 09-21-2023 Chronic Other nutritional; endocrine; and metabolic disorders (4 sources) Overweight in adulthood with body mass index of 25 or more but less than 30; Translations: [Body Mass Index 25.0-25.9, adult] Episodic Other nutritional; endocrine; and metabolic disorders (4 sources) Overweight; Translations: [Overweight] Episodic Other screening for suspected conditions (not mental disorders or infectious disease) (9 sources) Renal function tests abnormal; Translations: [Abnormal results of kidney function studies] Onset: 4 07-03-2024 Episodic Other upper respiratory infections (1 source) Acute sinusitis, unspecified Episodic Pneumonia (except that caused by tuberculosis or sexually transmitted disease) (10 sources) Pneumonia; Translations: [Pneumonia, unspecified organism] 10-30-2021 Episodic Respiratory failure; insufficiency; arrest (adult) (1 source) Dependence on supplemental oxygen; Translations: [DEPENDENCE ON SUPPLEMENTAL OXYGEN] Onset: 2 Chronic Spondylosis; intervertebral disc disorders; other back problems (13 sources) Low back pain; Translations: [Lumbago] Onset: 8 07-28-2023 Episodic Substance-related disorders (10 sources) Smoker; Translations: [Nicotine dependence, unspecified, uncomplicated] 10-30-2021 Chronic Thyroid disorders (20 sources) Hypothyroidism; Translations: [Hypothyroidism, unspecified] Onset: 8 10-31-2021 Chronic Unclassified (1 source) COUGH, UNSPECIFIED; Translations: [COUGH, UNSPECIFIED] Onset: 2 Unclassified (1 source) CONTACT W/AND (SUSP) EXPOS COVID-19; Translations: [CONTACT W/AND (SUSP) EXPOS COVID-19] Onset: 2 Unclassified (1 source) PERSONAL HISTORY OF COVID-19; Translations: [PERSONAL HISTORY OF COVID-19] Onset: 2 Urinary tract infections (2 sources) Acute cystitis; Translations: [Acute cystitis without hematuria] 07-03-2024 Episodic Past or Other Problems Problem Classification Problem Date Documented Da te Episodic/Chronic Deficiency and other anemia (20 sources) Iron deficiency anemia; Translations: [Iron deficiency anemia, unspecified] Onset: 3 10-30-2021 Episodic Deficiency and other anemia (11 sources) Anemia; Translations: [Anemia, unspecified] Onset: 2 09-21-2023 Episodic Deficiency and other anemia (2 sources) Anemia, unspecified; Translations: [Anemia, unspecified] Onset: 2 Episodic Mood disorders (10 sources) Mood disorders Onset: 4 01-24-2024 Other aftercare (1 source) Encounter for follow-up examination after completed treatment for conditions other than malignant neoplasm; Translations: [ENC F/U EX AFTR CMPL TX NOT MAL JA] Onset: 2 Episodic Other aftercare (3 sources) Other ocean transportation intermediary (current) drug therapy; Translations: [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 DRUG THERAPY] Onset: 2 Episodic Other bone disease and musculoskeletal deformities (11 sources) Arrest of bone development AND/OR growth; Translations: [...] 2 Resolved: 2 Episodic Other gastrointestinal disorders (11 sources) History of gastrointestinal bleed; Translations: [Personal history of other diseases of the digestive system] Onset: 2 09-21-2023 Episodic Other gastrointestinal disorders (2 sources) Personal history of other diseases of the digestive system; Translations: [Personal history of other diseases of the digestive system] Onset: 2 Episodic Other gastrointestinal disorders (10 sources) Vascular ectasia of small intestine; Translations: [Angiodysplasia of colon with hemorrhage] Onset: 4 01-24-2024 Episodic Other hematologic conditions (1 source) Other [...] source) Wheezing; Translations: [WHEEZING] Onset: 2 Episodic Unclassified (1 source) Acute cough R05.1 Results Test Name Value Interpretation Reference Range Facility CBC W Auto Differential pane l (Bld)on 08-03-2024 Basophils (Bld) [#/Vol] 0.1 10*3/uL 0.0 - 0.2 10*3/uL [facility] Basophils/100 WBC Manual cnt (Syn fld) 1.2 % . [facility] Eosinophils (Bld) [#/Vol] 0.4 10*3/uL 0.0 - 0.45 10*3/uL [facility] Eosinophils/100 WBC Manual cnt (Syn fld) 6.2 % . [facility] Erythrocyte distribution width (RBC) [Ratio] 16.3 % High 11.9 - 15.3 % [facility] Hematocrit (Bld) [Volume fraction] 25.5 % Low 34.0 - 46.4 % [facility] Hemoglobin (Bld) [Mass/Vol] 8.3 g/dL Low 11.8 - 15.4 g/dL [facility] Interpretation and review of laboratory results Abnormal [facility] Lymphocytes (Bld) [#/Vol] 1.2 10*3/uL 1.00 - 4.8 10*3/uL [facility] Lymphocytes/100 WBC Manual cnt (Syn fld) 20.7 % . [facility] MCH (RBC) [Entitic mass] 28.7 pg 24.7 - 34.3 pg [facility] MCHC (RBC) [Mass/Vol] 32.5 g/dL 32.0 - 35.0 g/dL [facility] MCV (RBC) [Entitic vol] 88.4 fL 80 - 100 fL [facility] Monocytes (Bld) [#/Vol] 0.6 10*3/uL 0.0 - 0.8 10*3/uL [facility] Monocytes+Macrophages/1 00 WBC Manual cnt (Syn fld) 9.6 % . [facility] Neutrophils (Bld) [#/Vol] 3.7 10*3/uL 1.8 - 7.7 10*3/uL [facility] Neutrophils/100 WBC Manual cnt (Syn fld) 62.3 % . [facility] NRBC 0 /100{WBC} 0 - 0.5 /100{WBC} [facility] Platelet mean volume (Bld) [Entitic vol] 7.4 fL 6.3 - 10.7 fL [facility] Platelets (Bld) [#/Vol] 427 10*3/uL 150 - 450 10*3/uL [facility] RBC LM.HPF (Urine sed) [#/Area] 2.88 10*6/uL Low 3.60 - 5.00 10*6/uL [facility] WBC (Bld) [#/Vol] 6 10*3/uL 3.8 - 11.6 10*3/uL [facility] WBC LM.HPF (Urine sed) [#/Area] 6 10*3/uL 3.8 - 11.6 10*3/uL [facility] Complete Blood Count Auto Di ffon 08-03-2024 Basophils (Bld) [#/Vol] 0.1 10*3/uL Normal 0.0-0.2 [facility] Comment on above: Result Comment: PERF ORMED BY: [place] [address] PATHOLOGIST BLADE BENDER FURNACE TENDER LASHAY CHARLES M.D. Performed By: #### F E and TIBC, SHI, CBC, CMP #### [address] Basophils/100 WBC (Bld) 1.2 % Normal . T melvin [facility] Comment on above: Performed By: #### F E and TIBC, SHI, CBC, CMP #### [address] Eosinophils (Bld) [#/Vol] 0.4 10*3/uL Normal 0.0-0.45 [facility] Comment on above: Performed By: #### F E and TIBC, SHI, CBC, CMP #### [place] [address] [place] Eosinophils/100 WBC (Bld) 6.2 % Normal . [facility] Comment on above: Performed By: #### F E and TIBC, SHI, CBC, CMP #### [address] Erythrocyte distribution width (RBC) [Ratio] 16.3 % High 11.9-15.3 [facility] Group Comment on above: Performed By: #### F E and TIBC, SHI, CBC, CMP #### [address] Hematocrit (Bld) [Volume fraction] 25.5 % Low 34.0-46.4 [facility] Comment on above: Performed By: #### F E and TIBC, SHI, CBC, CMP #### [address] Hemoglobin (Bld) [Mass/Vol] 8.3 g/dL Low 11.8-15.4 [facility] Comment on above: Performed By: #### F E and TIBC, SHI, CBC, CMP #### [address] Lymphocytes (Bld) [#/Vol] 1.2 10*3/uL Normal 1.00-4.8 [facility] Comment on above: Performed By: #### F E and TIBC, SHI, CBC, CMP #### [address] Lymphocytes/100 WBC (Bld) 20.7 % Normal . [facility] Comment on above: Performed By: #### F E and TIBC, SHI, CBC, CMP #### [address] MCH (RBC) [Entitic mass] 28.7 pg Normal 24.7-34.3 [facility] Comment on above: Performed By: #### F E and TIBC, SHI, CBC, CMP #### [address] MCV (RBC) [Entitic vol] 88.4 fL Normal 80-100 [facility] Comment on above: Performed By: #### F E and TIBC, SHI, CBC, CMP #### [address] Mean Corpuscular HGB Conc 32.5 g/dL Normal 32.0-35.0 [facility] Comment on above: Performed By: #### F E and TIBC, SHI, CBC, CMP #### [address] Monocytes (Bld) [#/Vol] 0.6 10*3/uL Normal 0.0-0.8 [facility] Comment on above: Performed By: #### F E and TIBC, SHI, CBC, CMP #### [address] Monocytes/100 WBC (Bld) 9.6 % Normal . [facility] Comment on above: Performed By: #### F E and TIBC, SHI, CBC, CMP #### [address] Neutrophils (Bld) [#/Vol] 3.7 10*3/uL Normal 1.8-7.7 [facility] Comment on above: Performed By: #### F E and TIBC, SHI, CBC, CMP #### [address] Neutrophils/100 WBC (Bld) 62.3 % Normal . [facility] Comment on above: Performed By: #### F E and TIBC, SHI, CBC, CMP #### [address] NRBC% 0.0 /100{WBC} Normal 0-0.5 [facility] Comment on above: Performed By: #### F E and TIBC, SHI, CBC, CMP #### [address] Platelet mean volume (Bld) [Entitic vol] 7.4 fL Normal 6.3-10.7 [facility] Comment on above: Performed By: #### F E and TIBC, SHI, CBC, CMP #### [address] Platelets (Bld) [#/Vol] 427 10*3/uL Normal 150-450 [facility] Comment on above: Performed By: #### F E and TIBC, SHI, CBC, CMP #### [address] RBC (Bld) [#/Vol] 2.88 10*6/uL Low 3.60-5.00 [facility] Comment on above: Performed By: #### F E and TIBC, SHI, CBC, CMP #### [address] WBC (Bld) [#/Vol] 6.0 10*3/uL Normal 3.8-11.6 [facility] Comment on above: Performed By: #### F E and TIBC, SHI, CBC, CMP #### [address] Comprehensive Metabolic Pane abraham 08-03-2024 Albumin [Mass/Vol] 3.9 g/dL Normal 3.5-5.7 [facility] Comment on above: Performed By: #### F E and TIBC, SHI, CBC, CMP #### [address] Albumin/Globulin [Mass ratio] 1.4 {ratio} Normal [facility] Comment on above: Performed By: #### F E and TIBC, SHI, CBC, CMP #### [address] ALP [Catalytic activity/Vol] 80 U/L Normal 34-104 [facility] Comment on above: Performed By: #### F E and TIBC, SHI, CBC, CMP #### [address] ALT [Catalytic activity/Vol] 13 U/L Normal 7-52 [facility] Comment on above: Performed By: #### F E and TIBC, SHI, CBC, CMP #### [address] Anion gap [Moles/Vol] 12.1 mmol/L Normal 6.0-15.0 [facility] Comment on above: Performed By: #### F E and TIBC, SHI, CBC, CMP #### [address] AST [Catalytic activity/Vol] 14 U/L Normal 13-39 [facility] Comment on above: Performed By: #### F E and TIBC, SHI, CBC, CMP #### [address] Bilirubin [Mass/Vol] 0.3 mg/dL Normal 0.3-1.0 [facility] Comment on above: Performed By: #### F E and TIBC, SHI, CBC, CMP #### [address] Calcium [Mass/Vol] 8.7 mg/dL Normal 8.6-10.3 [facility] Comment on above: Performed By: #### F E and TIBC, SHI, CBC, CMP #### [address] Chloride [Moles/Vol] 102 mmol/L Normal 98-107 [facility] Comment on above: Performed By: #### F E and TIBC, SHI, CBC, CMP #### [address] CO2 [Moles/Vol] 28.9 mmol/L Normal 21.0-31.0 [facility] Comment on above: Performed By: #### F E and TIBC, SHI, CBC, CMP #### [address] Creatinine [Mass/Vol] 1.48 mg/dL High 0.60-1.20 [facility] Comment on above: Performed By: #### F E and TIBC, SHI, CBC, CMP #### [address] Creatinine Clr Calc Pharmacy 27.05 Normal [facility] Comment on above: Performed By: #### F E and TIBC, SHI, CBC, CMP #### [address] Estimated GFR 36.024 mL/Min Normal [facility] Comment on above: Performed By: #### F E and TIBC, SHI, CBC, CMP #### [place] [id number] [place] Globulin (S) [Mass/Vol] 2.8 g/dL Normal T [facility] Comment on above: Performed By: #### F E and TIBC, SHI, CBC, CMP #### [address] Glucose [Mass/Vol] 103 mg/dL High 70-100 [facility] Comment on above: Result Comment: [facility] Glucose Reference Range is dependent on time and content of last meal. Glucose of more than 200 mg/dL in a nonstressed, ambulatory subject supports the diagnosis of Diabetes Mellitus. ADA recommended reference range Performed By: #### F E and TIBC, SHI, CBC, CMP #### [address] Potassium [Moles/Vol] 5.0 mmol/L Normal 3.5-5.1 [facility] Comment on above: Performed By: #### F E and TIBC, SHI, CBC, CMP #### [address] Protein [Mass/Vol] 6.7 g/dL Normal 6.4-8.9 [facility] Comment on above: Performed By: #### F E and TIBC, SHI, CBC, CMP #### [address] Sodium [Moles/Vol] 138 mmol/L Normal 136-145 [facility] Comment on above: Performed By: #### F E and TIBC, SHI, CBC, CMP #### [address] Urea nitrogen [Mass/Vol] 37 mg/dL High 7-25 [facility] Comment on above: Performed By: #### F E and TIBC, SHI, CBC, CMP #### [address] Ferritinon 08-03-2024 Ferritin [Mass/Vol] 57.6 ng/mL Normal 11.0-306.8 [facility] Comment on above: Result Comment: PERF ORMED BY: [place] [address] PATHOLOGIST BLADE BENDER [employer]NACE TENDER LASHAY CHARLES M.D. Performed By: #### F E and TIBC, SHI, CBC, CMP #### [address] Iron and TIBC Profileon 12- % Iron Saturation Not performed Normal 20-50 [facility] Comment on above: Performed By: #### F E and TIBC, SHI, CBC, CMP #### [address] Iron [Mass/Vol] ug/dL Low 50-212 [facility] Comment on above: Performed By: #### F E and TIBC, SHI, CBC, CMP #### [address] Total Iron Binding Capacity 332 ug/dL Normal 255-450 [facility] Comment on above: Performed By: #### F E and TIBC, SHI, CBC, CMP #### [address] Transferrin [Mass/Vol] 237 mg/dL Normal 203-362 [facility] Comment on above: Performed By: #### F E and TIBC, SHI, CBC, CMP #### [address] Urinalysis macro (dipstick) panel (U)on 07-03-2024 Bilirubin, UA Negative Negative - 4(70) +++ mg/dL [facility] Blood, UA Positive Negative - 50 Donny/mcL [facility] Glucose, UA Negative Negative - 2000(110) ++++ mg/dL [facility] Ketones, UA Negative Negative - 160(16) ++++ mg/dL [facility] Leukocytes, UA Moderate Negative - 500+++ Dalton/mcL [facility] Nitrite, UA Negative Negative - Positive [facility] pH, UA 6 5 - 9 [facility] Protein, UA Trace Negative - 1999(20) ++++ mg/dL [facility] Spec Grav, UA 1.005 1 - 1.03 [facility] Urobilinogen, UA 0.2 0.2 - 12 mg/dL [facility] Alanine aminotransferase [En zymatic activity/volume] in Serum or PlasmaOrdered By: Bell Camargo on 05-08-2024 ALT [Catalytic activity/Vol] 8 U/L Normal 7-52 [facility] Comment on above: Performed By: #### F E and TIBC, SHI, CBC, CMP #### [facility] [address] Albumin [Mass/volume] in Ser um or Plasma by Bromocresol green (BCG) dye binding methoOrdered By: Bell Camargo on 05-08-2024 Albumin BCG dye [Mass/Vol] 4.0 g/dL 3.5-5.7 [facility] Alkaline phosphatase [Enzyma tic activity/volume] in Serum or PlasmaOrdered By: Bell Camargo on 05-08-2024 ALP [Catalytic activity/Vol] 72 U/L Normal 34-104 [facility] Comment on above: Performed By: #### F E and TIBC, SHI, CBC, CMP #### [address] Aspartate aminotransferase [ Enzymatic activity/volume] in Serum or PlasmaOrdered By: Bell Camargo on 05-08-2024 AST [Catalytic activity/Vol] 12 U/L Low 13-39 [facility] Comment on above: Performed By: #### F E and TIBC, SHI, CBC, CMP #### [address] Automated basophil %Ordered By: Bell Camargo on 05-08-2024 Basophils/100 WBC (Bld) 1.4 % Normal . [facility] Comment on above: Performed By: #### F E and TIBC, SHI, CBC, CMP #### [facility] [address] [place] [address] Automated basophil countOrde red By: Bell Camargo on 05-08-2024 Basophils (Bld) [#/Vol] 0.1 10*3/uL Normal 0.0-0.2 [facility] Comment on above: Result Comment: PERF ORMED BY: [place] [address] PATHOLOGIST BLADE BENDER F[employer]NACE TENDER ANDI DERAS M.D. Performed By: #### F E and TIBC, SHI, CBC, CMP #### [address] Automated blood monocyte cou ntOrdered By: Bell Camargo on 05-08-2024 Monocytes (Bld) [#/Vol] 0.4 10*3/uL Normal 0.0-0.8 [facility] Comment on above: Performed By: #### F E and TIBC, SHI, CBC, CMP #### [address] Automated eosinophil %Ordere d By: Bell Camargo on 05-08-2024 Eosinophils/100 WBC (Bld) 12.5 % Normal . [facility] Comment on above: Performed By: #### F E and TIBC, SHI, CBC, CMP #### [address] Automated eosinophil countOr dered By: Bell Camargo on 05-08-2024 Eosinophils (Bld) [#/Vol] 0.7 10*3/uL High 0.0-0.45 [facility] Comment on above: Performed By: #### F E and TIBC, SHI, CBC, CMP #### [address] Automated monocyte %Ordered By: Bell Camargo on 05-08-2024 Monocytes/100 WBC (Bld) 7.0 % Normal . [facility] Comment on above: Performed By: #### F E and TIBC, SHI, CBC, CMP #### [address] Automated neutrophil %Ordere d By: Bell Camargo on 05-08-2024 Neutrophils/100 WBC (Bld) 58.3 % Normal . [facility] Comment on above: Performed By: #### F E and TIBC, SHI, CBC, CMP #### [address] Bilirubin.total [Mass/volume ] in Serum or PlasmaOrdered By: Bell Camargo on 05-08-2024 Bilirubin [Mass/Vol] 0.3 mg/dL Normal 0.3-1.0 [facility] [place] Comment on above: Performed By: #### F E and TIBC, SHI, CBC, CMP #### [facility] [address] CBC W Auto Differential pane l (Bld)on 05-08-2024 Basophils (Bld) [#/Vol] 0.1 10*3/uL 0.0 - 0.2 10*3/uL [facility] Basophils/100 WBC Manual cnt (Syn fld) 1.4 % . [facility] Eosinophils (Bld) [#/Vol] 0.7 10*3/uL High 0.0 - 0.45 10*3/uL [facility] Eosinophils/100 WBC Manual cnt (Syn fld) 12.5 % . [facility] Erythrocyte distribution width (RBC) [Ratio] 16.1 % High 11.9 - 15.3 % [facility] Hematocrit (Bld) [Volume fraction] 28.7 % Low 34.0 - 46.4 % [facility] Hemoglobin (Bld) [Mass/Vol] 9.7 g/dL Low 11.8 - 15.4 g/dL [facility] Interpretation and review of laboratory results Abnormal [facility] Lymphocytes (Bld) [#/Vol] 1.1 10*3/uL 1.00 - 4.8 10*3/uL [facility] Lymphocytes/100 WBC Manual cnt (Syn fld) 20.8 % . [facility] MCH (RBC) [Entitic mass] 31.5 pg 24.7 - 34.3 pg [facility] MCHC (RBC) [Mass/Vol] 33.7 g/dL 32.0 - 35.0 g/dL [facility] MCV (RBC) [Entitic vol] 93.5 fL 80 - 100 fL [facility] Monocytes (Bld) [#/Vol] 0.4 10*3/uL 0.0 - 0.8 10*3/uL [facility] Monocytes+Macrophages/1 00 WBC Manual cnt (Syn fld) 7.0 % . [facility] Neutrophils (Bld) [#/Vol] 3.2 10*3/uL 1.8 - 7.7 10*3/uL [facility] Neutrophils/100 WBC Manual cnt (Syn fld) 58.3 % . [facility] NRBC 0.1 /100{WBC} 0 - 0.5 /100{WBC} [facility] Platelet mean volume (Bld) [Entitic vol] 8.3 fL 6.3 - 10.7 fL [facility] Platelets (Bld) [#/Vol] 266 10*3/uL 150 - 450 10*3/uL [facility] RBC LM.HPF (Urine sed) [#/Area] 3.07 /[HPF] Low 3.60 - 5.00 [facility] WBC (Bld) [#/Vol] 5.5 10*3/uL 3.8 - 11.6 10*3/uL [facility] WBC LM.HPF (Urine sed) [#/Area] 5.5 10*3/uL 3.8 - 11.6 10*3/uL [facility] Calcium [Mass/volume] in Ser um or PlasmaOrdered By: Bell Camargo on 05-08-2024 Calcium [Mass/Vol] 9.0 mg/dL Normal 8.6-10.3 [facility] Comment on above: Performed By: #### F E and TIBC, SHI, CBC, CMP #### [facility] [address] Carbon dioxide, total [Moles /volume] in Serum or PlasmaOrdered By: Bell Camargo on 05-08-2024 CO2 [Moles/Vol] 27.6 mmol/L Normal 21.0-31.0 [facility] Comment on above: Performed By: #### F E and TIBC, SHI, CBC, CMP #### [facility] [address] Chloride [Moles/volume] in S constance or PlasmaOrdered By: Bell Camargo on 05-08-2024 Chloride [Moles/Vol] 106 mmol/L Normal 98-107 [facility] [place] Comment on above: Performed By: #### F E and TIBC, SHI, CBC, CMP #### [facility] [address] Complete Blood Count Auto Di ffon 05-08-2024 Mean Corpuscular HGB Conc 33.7 g/dL Normal 32.0-35.0 [facility] Comment on above: Performed By: #### F E and TIBC, SHI, CBC, CMP #### [address] NRBC% 0.1 /100{WBC} Normal 0-0.5 [facility] Comment on above: Performed By: #### F E and TIBC, SHI, CBC, CMP #### [facility] [address] [place] [address] Comprehensive Metabolic Pane abraham 05-08-2024 Albumin [Mass/Vol] 4.0 g/dL Normal 3.5-5.7 [facility] Comment on above: Performed By: #### F E and TIBC, SHI, CBC, CMP #### [address] Creatinine Clr Calc Pharmacy 28.40 Normal [facility] Comment on above: Performed By: #### F E and TIBC, SHI, CBC, CMP #### [address] GFR/1.73 sq M.predicted MDRD (S/P/Bld) [Vol rate/Area] 38.180 mL/min/{1.73_m2} Normal [facility] Comment on above: Performed By: #### F E and TIBC, SHI, CBC, CMP #### [address] Creatinine [Mass/volume] in Serum or PlasmaOrdered By: Bell Camargo on 05-08-2024 Creatinine [Mass/Vol] 1.41 mg/dL High 0.60-1.20 [facility] Comment on above: Performed By: #### F E and TIBC, SHI, CBC, CMP #### [facility] [address] [place] [address] Erythrocyte distribution wid th [Ratio] by Automated countOrdered By: Bell Camargo on 05-08-2024 Erythrocyte distribution width (RBC) [Ratio] 16.1 % High 11.9-15.3 [facility] Comment on above: Performed By: #### F E and TIBC, SHI, CBC, CMP #### [facility] [address] Erythrocytes [#/volume] in B lood by Automated countOrdered By: Bell Camargo on 05-08-2024 RBC (Bld) [#/Vol] 3.07 10*6/uL Low 3.60-5.00 [facility] Comment on above: Performed By: #### F E and TIBC, SHI, CBC, CMP #### [facility] [address] [place] [address] [place] Ferritin [Mass/volume] in Se rum or PlasmaOrdered By: Bell Camargo on 05-08-2024 Ferritin [Mass/Vol] 110.9 ng/mL Normal 11.0-306.8 [facility] [place] Comment on above: Result Comment: PERF ORMED BY: [facility] [address] [place] [address] PATHOLOGIST BLADE BENDER FURNACE TENDER ANDI DERAS M.D. Performed By: #### F E and TIBC, SHI, CBC, CMP #### [facility] [address] Glucose [Mass/volume] in Ser um or PlasmaOrdered By: Bell Camargo on 05-08-2024 Glucose [Mass/Vol] 113 mg/dL High 70-100 [facility] Comment on above: ADA recommended refe rence rangeRandom Glucose Reference Range is dependent on time and content of last meal. Glucose of more than 200 mg/dL in a nonstressed, ambulatory subject supports the diagnosis of Diabetes Mellitus. Result Comment: [place] [facility] Glucose Reference Range is dependent on time and content of last meal. Glucose of more than 200 mg/dL in a nonstressed, ambulatory subject supports the diagnosis of Diabetes Mellitus. ADA recommended reference range Performed By: #### F E and TIBC, SHI, CBC, CMP #### [facility] [address] Hematocrit [Volume Fraction] of Blood by Automated countOrdered By: Bell Camargo on 05-08-2024 Hematocrit (Bld) [Volume fraction] 28.7 % Low 34.0-46.4 [facility] Comment on above: Performed By: #### F E and TIBC, SHI, CBC, CMP #### [facility] [address] Hemoglobin [Mass/volume] in BloodOrdered By: Bell Camargo on 05-08-2024 Hemoglobin (Bld) [Mass/Vol] 9.7 g/dL Low 11.8-15.4 [facility] Comment on above: Performed By: #### F E and TIBC, SHI, CBC, CMP #### [facility] [address] Iron [Mass/volume] in Serum or PlasmaOrdered By: Bell Camargo on 05-08-2024 Iron [Mass/Vol] 37 ug/dL Low 50-212 [facility] Comment on above: Performed By: #### F E and TIBC, SHI, CBC, CMP #### [facility] [address] Iron and TIBC Profileon 04-23 % Iron Saturation 12.0 % Low 20-50 [facility] Comment on above: Performed By: #### F E and TIBC, SHI, CBC, CMP #### [address] Total Iron Binding Capacity 308 ug/dL Normal 255-450 [facility] Comment on above: Performed By: #### F E and TIBC, SHI, CBC, CMP #### [address] Iron binding capacity [Mass/ volume] in Serum or PlasmaOrdered By: Bell Camargo on 05-08-2024 Iron binding capacity [Mass/Vol] 308 ug/dL 255-450 [facility] Iron saturation [Mass Fracti on] in Serum or PlasmaOrdered By: Blel Camargo on 05-08-2024 Iron saturation [Mass fraction] 12.0 % Low 20-50 [facility] Leukocytes [#/volume] correc maria e for nucleated erythrocytes in Blood by Automated counOrdered By: Bell Camargo on 05-08-2024 WBC corrected for nucl RBC Auto (Bld) [#/Vol] 5.5 10*3/uL 3.8-11.6 [facility] Leukocytes [#/volume] in Blo od by Automated countOrdered By: Bell Camargo on 05-08-2024 WBC (Bld) [#/Vol] 5.5 10*3/uL Normal 3.8-11.6 [facility] Comment on above: Performed By: #### F E and TIBC, SHI, CBC, CMP #### [facility] [address] Lymphocytes [#/volume] in Bl ood by Automated countOrdered By: Bell Camargo on 05-08-2024 Lymphocytes (Bld) [#/Vol] 1.1 10*3/uL Normal 1.00-4.8 [facility] Comment on above: Performed By: #### F E and TIBC, SHI, CBC, CMP #### [facility] [address] [place] [address] Lymphocytes/100 leukocytes i n Blood by Automated countOrdered By: Bell Camargo on 05-08-2024 Lymphocytes/100 WBC (Bld) 20.8 % Normal . [facility] Comment on above: Performed By: #### F E and TIBC, SHI, CBC, CMP #### [facility] [address] [place] [address] MCH [Entitic mass] by Automa maria e countOrdered By: Bell Camargo on 05-08-2024 MCH (RBC) [Entitic mass] 31.5 pg Normal 24.7-34.3 [facility] Comment on above: Performed By: #### F E and TIBC, SHI, CBC, CMP #### [facility] [address] [place] [address] MCHC Auto (RBC) [Mass/Vol]Or dered By: Bell Camargo on 05-08-2024 MCHC (RBC) [Mass/Vol] 33.7 g/dL 32.0-35.0 [facility] MCV [Entitic volume] by Auto mated countOrdered By: Bell Camargo on 05-08-2024 MCV (RBC) [Entitic vol] 93.5 fL Normal 80-100 [facility] Comment on above: Performed By: #### F E and TIBC, SHI, CBC, CMP #### [facility] [address] [place] [address] Neutrophils [#/volume] in Bl ood by Automated countOrdered By: Bell Camargo on 05-08-2024 Neutrophils (Bld) [#/Vol] 3.2 10*3/uL Normal 1.8-7.7 [facility] Comment on above: Performed By: #### F E and TIBC, SHI, CBC, CMP #### [facility] [address] [place] [address] No Panel InformationOrdered By: Bell Camargo on 05-08-2024 Estimated GFR (CKD-EPI) 38.180 mL/Min [facility] Pharmacy Creatinine Clearance (Chem 28.40 [facility] Nucleated erythrocytes [Pres ence] in Blood by Automated countOrdered By: Bell Camargo on 05-08-2024 Nucleated RBC Auto Ql (Bld) 0.1 /100{WBC} 0-0.5 [facility] Platelet mean volume [Entiti c volume] in Blood by Automated countOrdered By: Bell Camargo on 05-08-2024 Platelet mean volume (Bld) [Entitic vol] 8.3 fL Normal 6.3-10.7 [facility] Comment on above: Performed By: #### F E and TIBC, SHI, CBC, CMP #### [facility] [address] [place] [address] Platelets [#/volume] in Bloo d by Automated countOrdered By: Bell Camargo on 05-08-2024 Platelets (Bld) [#/Vol] 266 10*3/uL Normal 150-450 [facility] Comment on above: Performed By: #### F E and TIBC, SHI, CBC, CMP #### [address] Potassium [Moles/volume] in Serum or PlasmaOrdered By: Bell Camargo on 05-08-2024 Potassium [Moles/Vol] 4.5 mmol/L Normal 3.5-5.1 [facility] Comment on above: Performed By: #### F E and TIBC, SHI, CBC, CMP #### [address] Protein [Mass/volume] in Ser um or PlasmaOrdered By: Bell Camargo on 05-08-2024 Protein [Mass/Vol] 6.4 g/dL Normal 6.4-8.9 [facility] Comment on above: Performed By: #### F E and TIBC, SHI, CBC, CMP #### [address] Serum globulin measurement b y calculation (mass/volume)Ordered By: Bell Camargo on 05-08-2024 Globulin (S) [Mass/Vol] 2.4 g/dL Normal [facility] Comment on above: Performed By: #### F E and TIBC, SHI, CBC, CMP #### [address] Serum or plasma albumin/glob ulin mass ratioOrdered By: Bell Camargo on 05-08-2024 Albumin/Globulin [Mass ratio] 1.7 {ratio} Normal [facility] [place] Comment on above: Performed By: #### F E and TIBC, SHI, CBC, CMP #### [address] Serum or plasma anion gap de terminationOrdered By: Bell Camargo on 05-08-2024 Anion gap [Moles/Vol] 9.9 mmol/L Normal 6.0-15.0 [facility] Comment on above: Performed By: #### F E and TIBC, SHI, CBC, CMP #### [address] Sodium [Moles/volume] in Ser um or PlasmaOrdered By: Bell Camargo on 05-08-2024 Sodium [Moles/Vol] 139 mmol/L Normal 136-145 [facility] Comment on above: Performed By: #### F E and TIBC, SHI, CBC, CMP #### [address] [place] [address] [place] Transferrin [Mass/volume] in Serum or PlasmaOrdered By: Bell Camargo on 05-08-2024 Transferrin [Mass/Vol] 220 mg/dL Normal 203-362 [facility] Comment on above: Performed By: #### F E and TIBC, SHI, CBC, CMP #### [facility] [address] Urea nitrogen [Mass/volume] in Serum or PlasmaOrdered By: Bell Camargo on 05-08-2024 Urea nitrogen [Mass/Vol] 37 mg/dL High 7-25 [facility] [place] Comment on above: Performed By: #### F E and TIBC, SHI, CBC, CMP #### [facility] [address] Office Visiton 03-10-2024 Follow-up visit [id number] Terri Newton 1945 F Date Provider Department Center 03/10/2024 GORDON MCALLISTER REINA Coates [facility] Family History Problem Relation Age of Onset Atrial fibrillation Brother Family Status - Relation Status Age at Brother Level of Service:83489 [place] OFFICE/OUTPATIENT ESTABLISHED LOW MDM 20 MIN Normal [facility] Alanine aminotransferase [En zymatic activity/volume] in Serum or PlasmaOrdered By: Nusrat Bundy on 01-04-2024 ALT [Catalytic activity/Vol] 7 U/L Normal 7-52 [facility] [place] Comment on above: Performed By: #### C MP, FE and TIBC, SHI, CBC #### [facility] [address] [place] [address] [place] Albumin [Mass/volume] in Ser um or Plasma by Bromocresol green (BCG) dye binding methoOrdered By: Nusrat Bundy on 01-04-2024 Albumin BCG dye [Mass/Vol] 4.1 g/dL 3.5-5.7 [facility] [place] Alkaline phosphatase [Enzyma tic activity/volume] in Serum or PlasmaOrdered By: Nusrat Bundy on 01-04-2024 ALP [Catalytic activity/Vol] 81 U/L Normal 34-104 [facility] [place] Comment on above: Performed By: #### C MP, FE and TIBC, SHI, CBC #### [address] Aspartate aminotransferase [ Enzymatic activity/volume] in Serum or PlasmaOrdered By: Nusrat Brownrolando on 01-04-2024 AST [Catalytic activity/Vol] 13 U/L Normal 13-39 [facility] [place] Comment on above: Performed By: #### C MP, FE and TIBC, SHI, CBC #### [address] Automated basophil %Ordered By: Nusrat Brownrolando on 01-04-2024 Basophils/100 WBC (Bld) 2.0 % Normal . [facility] Comment on above: Performed By: #### C MP, FE and TIBC, SHI, CBC #### [address] Automated basophil countOrde red By: Nusrat Brownrolando on 01-04-2024 Basophils (Bld) [#/Vol] 0.1 10*3/uL Normal 0.0-0.2 [facility] [place] Comment on above: Result Comment: PERF ORMED BY: [place] [address] PATHOLOGIST [employer]NA[employer] TENDER ANDI DERAS M.D. Performed By: #### C MP, FE and TIBC, SHI, CBC #### [address] Automated blood monocyte cou ntOrdered By: Nusrat Brownrolando on 01-04-2024 Monocytes (Bld) [#/Vol] 0.5 10*3/uL Normal 0.0-0.8 [facility] [place] Comment on above: Performed By: #### C MP, FE and TIBC, SHI, CBC #### [address] Automated eosinophil %Ordere d By: Nusrat Gregor on 01-04-2024 Eosinophils/100 WBC (Bld) 8.0 % Normal . [facility] [place] Comment on above: Performed By: #### C MP, FE and TIBC, SHI, CBC #### [address] Automated eosinophil countOr dered By: Nusrat Bundy on 01-04-2024 Eosinophils (Bld) [#/Vol] 0.4 10*3/uL Normal 0.0-0.45 [facility] [place] Comment on above: Performed By: #### C MP, FE and TIBC, SHI, CBC #### [address] Automated monocyte %Ordered By: Nusrat Bundy on 01-04-2024 Monocytes/100 WBC (Bld) 10.3 % Normal . [facility] Comment on above: Performed By: #### C MP, FE and TIBC, SHI, CBC #### [address] Automated neutrophil %Ordere d By: Nusrat Brownkamilahbarrington on 01-04-2024 Neutrophils/100 WBC (Bld) 58.8 % Normal . [facility] [place] Comment on above: Performed By: #### C MP, FE and TIBC, SHI, CBC #### [address] Bilirubin.total [Mass/volume ] in Serum or PlasmaOrdered By: Nusrat Bundy on 01-04-2024 Bilirubin [Mass/Vol] 0.3 mg/dL Normal 0.3-1.0 [facility] [place] Comment on above: Performed By: #### C MP, FE and TIBC, SHI, CBC #### [address] Calcium [Mass/volume] in Ser um or PlasmaOrdered By: Nusrat Brownkamilahbarrington on 01-04-2024 Calcium [Mass/Vol] 9.0 mg/dL Normal 8.6-10.3 [facility] Comment on above: Performed By: #### C MP, FE and TIBC, SHI, CBC #### [address] Carbon dioxide, total [Moles /volume] in Serum or PlasmaOrdered By: Nusrat Brownrolando on 01-04-2024 CO2 [Moles/Vol] 29.2 mmol/L Normal 21.0-31.0 [facility] Comment on above: Performed By: #### C MP, FE and TIBC, SHI, CBC #### [address] Chloride [Moles/volume] in S constance or PlasmaOrdered By: Nusrat Bundy on 01-04-2024 Chloride [Moles/Vol] 105 mmol/L Normal 98-107 [facility] [place] Comment on above: Performed By: #### C MP, FE and TIBC, SHI, CBC #### [address] Complete Blood Count Auto Di ffon 01-04-2024 Mean Corpuscular HGB Conc 33.7 g/dL Normal 32.0-35.0 [facility] Comment on above: Performed By: #### C MP, FE and TIBC, SHI, CBC #### [address] NRBC% 0.1 /100{WBC} Normal 0-0.5 [facility] Comment on above: Performed By: #### C MP, FE and TIBC, SHI, CBC #### [address] Comprehensive Metabolic Pane abraham 01-04-2024 Albumin [Mass/Vol] 4.1 g/dL Normal 3.5-5.7 [facility] Comment on above: Performed By: #### C MP, FE and TIBC, SHI, CBC #### [address] Creatinine Clr Calc Pharmacy 24.22 Normal [facility] Comment on above: Performed By: #### C MP, FE and TIBC, SHI, CBC #### [address] GFR/1.73 sq M.predicted MDRD (S/P/Bld) [Vol rate/Area] 31.134 mL/min/{1.73_m2} Normal [facility] Comment on above: Performed By: #### C MP, FE and TIBC, SHI, CBC #### [facility] [address] Creatinine [Mass/volume] in Serum or PlasmaOrdered By: Nusrat Gregor on 01-04-2024 Creatinine [Mass/Vol] 1.68 mg/dL High 0.60-1.20 [facility] Comment on above: Performed By: #### C MP, FE and TIBC, SHI, CBC #### [address] Erythrocyte distribution wid th [Ratio] by Automated countOrdered By: Nusrat Gregor on 01-04-2024 Erythrocyte distribution width (RBC) [Ratio] 14.2 % Normal 11.9-15.3 [facility] [place] Comment on above: Performed By: #### C MP, FE and TIBC, SHI, CBC #### [address] Erythrocytes [#/volume] in B lood by Automated countOrdered By: Nusrat Gregor on 01-04-2024 RBC (Bld) [#/Vol] 2.93 10*6/uL Low 3.60-5.00 [facility] Comment on above: Performed By: #### C MP, FE and TIBC, SHI, CBC #### [address] Ferritin [Mass/volume] in Se rum or PlasmaOrdered By: Nusrat Gregor on 01-04-2024 Ferritin [Mass/Vol] 313.5 ng/mL High 11.0-306.8 [facility] [place] Comment on above: Result Comment: PERF ORMED BY: [place] [address] PATHOLOGIST BLADE B[employer]ER [employer]NA[employer] TENDER ANDI DERAS M.D. Performed By: #### C MP, FE and TIBC, SHI, CBC #### [place] [address] [place] Glucose [Mass/volume] in Ser um or PlasmaOrdered By: Nusrat Gregor on 01-04-2024 Glucose [Mass/Vol] 81 mg/dL Normal 70-100 [facility] Comment on above: ADA recommended refe rence rangeRandom Glucose Reference Range is dependent on time and content of last meal. Glucose of more than 200 mg/dL in a nonstressed, ambulatory subject supports the diagnosis of Diabetes Mellitus. Result Comment: [place] Glucose Reference Range is dependent on time and content of last meal. Glucose of more than 200 mg/dL in a nonstressed, ambulatory subject supports the diagnosis of Diabetes Mellitus. ADA recommended reference range Performed By: #### C MP, FE and TIBC, SHI, CBC #### [facility] [address] Hematocrit [Volume Fraction] of Blood by Automated countOrdered By: Nusrat Brownrolando on 01-04-2024 Hematocrit (Bld) [Volume fraction] 29.2 % Low 34.0-46.4 [facility] [place] Comment on above: Performed By: #### C MP, FE and TIBC, SHI, CBC #### [address] Hemoglobin [Mass/volume] in BloodOrdered By: Nusrat Brownrolando on 01-04-2024 Hemoglobin (Bld) [Mass/Vol] 9.8 g/dL Low 11.8-15.4 [facility] [place] Comment on above: Performed By: #### C MP, FE and TIBC, SHI, CBC #### [address] Iron [Mass/volume] in Serum or PlasmaOrdered By: Nusrat Gregor on 01-04-2024 Iron [Mass/Vol] 56 ug/dL Normal 50-212 [facility] [place] Comment on above: Performed By: #### C MP, FE and TIBC, SHI, CBC #### [address] Iron and TIBC Profileon 12-21 % Iron Saturation 19.5 % Low 20-50 [facility] Comment on above: Performed By: #### C MP, FE and TIBC, SHI, CBC #### [address] Total Iron Binding Capacity 287 ug/dL Normal 255-450 [facility] Comment on above: Performed By: #### C MP, FE and TIBC, SHI, CBC #### [address] Iron binding capacity [Mass/ volume] in Serum or PlasmaOrdered By: Nusrat Gregor on 01-04-2024 Iron binding capacity [Mass/Vol] 287 ug/dL 255-450 [facility] [place] Iron saturation [Mass Fracti on] in Serum or PlasmaOrdered By: Nusrat Gregor on 01-04-2024 Iron saturation [Mass fraction] 19.5 % 20-50 [facility] [place] Leukocytes [#/volume] correc maria e for nucleated erythrocytes in Blood by Automated counOrdered By: Nusrat Gregor on 01-04-2024 WBC corrected for nucl RBC Auto (Bld) [#/Vol] 4.7 10*3/uL 3.8-11.6 [facility] [place] Leukocytes [#/volume] in Blo od by Automated countOrdered By: Nusrat Gregor on 01-04-2024 WBC (Bld) [#/Vol] 4.7 10*3/uL Normal 3.8-11.6 [facility] Comment on above: Performed By: #### C MP, FE and TIBC, SHI, CBC #### [address] Lymphocytes [#/volume] in Bl ood by Automated countOrdered By: Nusrat Gregor on 01-04-2024 Lymphocytes (Bld) [#/Vol] 1.0 10*3/uL Normal 1.00-4.8 [facility] [place] Comment on above: Performed By: #### C MP, FE and TIBC, SHI, CBC #### [place] [address] [place] Lymphocytes/100 leukocytes i n Blood by Automated countOrdered By: Nusrat Gregor on 01-04-2024 Lymphocytes/100 WBC (Bld) 20.9 % Normal . [facility] [place] Comment on above: Performed By: #### C MP, FE and TIBC, SHI, CBC #### [place] [address] [place] MCH [Entitic mass] by Automa maria e countOrdered By: Nusrat Gregor on 01-04-2024 MCH (RBC) [Entitic mass] 33.6 pg Normal 24.7-34.3 [facility] [place] Comment on above: Performed By: #### C MP, FE and TIBC, SHI, CBC #### [address] MCHC Auto (RBC) [Mass/Vol]Or dered By: Nusrat Bundy on 01-04-2024 MCHC (RBC) [Mass/Vol] 33.7 g/dL 32.0-35.0 [facility] MCV [Entitic volume] by Auto mated countOrdered By: Nusrat Bundy on 01-04-2024 MCV (RBC) [Entitic vol] 99.5 fL Normal 80-100 [facility] Comment on above: Performed By: #### C MP, FE and TIBC, SHI, CBC #### [address] Neutrophils [#/volume] in Bl ood by Automated countOrdered By: Nusrat Bundy on 01-04-2024 Neutrophils (Bld) [#/Vol] 2.7 10*3/uL Normal 1.8-7.7 [facility] [place] Comment on above: Performed By: #### C MP, FE and TIBC, SHI, CBC #### [address] No Panel InformationOrdered By: Nusrat Bundy on 01-04-2024 Estimated GFR (CKD-EPI) 31.134 mL/Min [facility] Pharmacy Creatinine Clearance (Chem 24.22 [facility] [place] Nucleated erythrocytes [Pres ence] in Blood by Automated countOrdered By: Nusrat Bundy on 01-04-2024 Nucleated RBC Auto Ql (Bld) 0.1 /100{WBC} 0-0.5 [facility] [place] Platelet mean volume [Entiti c volume] in Blood by Automated countOrdered By: Nusrat Bundy on 01-04-2024 Platelet mean volume (Bld) [Entitic vol] 8.5 fL Normal 6.3-10.7 [facility] [place] Comment on above: Performed By: #### C MP, FE and TIBC, SHI, CBC #### [address] Platelets [#/volume] in Bloo d by Automated countOrdered By: Nusrat Bundy on 01-04-2024 Platelets (Bld) [#/Vol] 247 10*3/uL Normal 150-450 [facility] [place] Comment on above: Performed By: #### C MP, FE and TIBC, SHI, CBC #### [address] Potassium [Moles/volume] in Serum or PlasmaOrdered By: Nusrat Gregor on 01-04-2024 Potassium [Moles/Vol] 4.4 mmol/L Normal 3.5-5.1 [facility] Comment on above: Performed By: #### C MP, FE and TIBC, SHI, CBC #### [address] Protein [Mass/volume] in Ser um or PlasmaOrdered By: Nusrat Gregor on 01-04-2024 Protein [Mass/Vol] 6.4 g/dL Normal 6.4-8.9 [facility] Comment on above: Performed By: #### C MP, FE and TIBC, SHI, CBC #### [address] Serum globulin measurement b y calculation (mass/volume)Ordered By: Nusrat Gregor on 01-04-2024 Globulin (S) [Mass/Vol] 2.3 g/dL Normal [facility] Comment on above: Performed By: #### C MP, FE and TIBC, SHI, CBC #### [address] Serum or plasma albumin/glob ulin mass ratioOrdered By: Nusrat Gregor on 01-04-2024 Albumin/Globulin [Mass ratio] 1.8 {ratio} Normal [facility] [place] Comment on above: Performed By: #### C MP, FE and TIBC, SHI, CBC #### [address] [place] [address] [place] Serum or plasma anion gap de terminationOrdered By: Nusrat Bundy on 01-04-2024 Anion gap [Moles/Vol] 9.2 mmol/L Normal 6.0-15.0 [facility] Comment on above: Performed By: #### C MP, FE and TIBC, SHI, CBC #### [facility] [address] [place] [address] [place] Sodium [Moles/volume] in Ser um or PlasmaOrdered By: Nusrat Bundy on 01-04-2024 Sodium [Moles/Vol] 139 mmol/L Normal 136-145 [facility] Comment on above: Performed By: #### C MP, FE and TIBC, SHI, CBC #### [address] Transferrin [Mass/volume] in Serum or PlasmaOrdered By: Nusrat Bundy on 01-04-2024 Transferrin [Mass/Vol] 205 mg/dL Normal 203-362 [facility] Comment on above: Performed By: #### C MP, FE and TIBC, SHI, CBC #### [place] [address] [place] Urea nitrogen [Mass/volume] in Serum or PlasmaOrdered By: Nusrat Bundy on 01-04-2024 Urea nitrogen [Mass/Vol] 39 mg/dL High 7-25 [facility] [place] Comment on above: Performed By: #### C MP, FE and TIBC, SHI, CBC #### [address] Office Visiton 10-14-2023 Follow-up visit [id number] Terri Newton 1945 F Date Provider Department Center 10/14/2023 GIGI LIMON Family History Problem Relation Age of Onset Atrial fibrillation Brother Family Status - Relation Status Age at Brother Level of Service:[address]006 [place] OFFICE/OUTPATIENT ESTABLISHED MOD MDM 30 MIN Normal [facility] COVID + FLU Quick Testingon 09-18-2023 SARS-CoV-2 (COVID-19) RNA TRACIE+probe Ql (Unsp spec) Negative [facility] [employer] Other COVID + FLU Quick Testing Negative [facility] [employer] Other Automated basophil %Ordered By: Bell Camargo on 09-02-2023 Basophils/100 WBC (Bld) 1.7 % Normal . [facility] Comment on above: Performed By: #### C BC, FE and TIBC, SHI #### [address] Automated basophil countOrde red By: Bell Camargo on 09-02-2023 Basophils (Bld) [#/Vol] 0.1 10*3/uL Normal 0.0-0.2 [facility] [place] Comment on above: Result Comment: PERF ORMED BY: [place] [address] PATHOLOGIST BLADE BENDER F[employer]NACE TENDER ANDI DERAS M.D. Performed By: #### C BC, FE and TIBC, SHI #### [address] Automated blood monocyte cou ntOrdered By: Bell Camargo on 09-02-2023 Monocytes (Bld) [#/Vol] 0.3 10*3/uL Normal 0.0-0.8 [facility] [place] Comment on above: Performed By: #### C BC, FE and TIBC, SHI #### [address] Automated eosinophil %Ordere d By: Bell Camargo on 09-02-2023 Eosinophils/100 WBC (Bld) 7.8 % Normal . [facility] [place] Comment on above: Performed By: #### C BC, FE and TIBC, SHI #### [address] Automated eosinophil countOr dered By: Bell Camargo on 09-02-2023 Eosinophils (Bld) [#/Vol] 0.3 10*3/uL Normal 0.0-0.45 [facility] [place] Comment on above: Performed By: #### C BC, FE and TIBC, SHI #### [address] Automated monocyte %Ordered By: Bell Camargo on 09-02-2023 Monocytes/100 WBC (Bld) 8.0 % Normal . [facility] Comment on above: Performed By: #### C BC, FE and TIBC, SHI #### [address] Automated neutrophil %Ordere d By: Bell Camargo on 09-02-2023 Neutrophils/100 WBC (Bld) 60.6 % Normal . [facility] [place] Comment on above: Performed By: #### C BC, FE and TIBC, SHI #### [address] Complete Blood Count Auto Di ffon 09-02-2023 Mean Corpuscular HGB Conc 34.2 g/dL Normal 32.0-35.0 [facility] Comment on above: Performed By: #### C BC, FE and TIBC, SHI #### [address] NRBC% 0.1 /100{WBC} Normal 0-0.5 [facility] Comment on above: Performed By: #### C BC, FE and TIBC, SHI #### [address] Erythrocyte distribution wid th [Ratio] by Automated countOrdered By: Bell Camargo on 09-02-2023 Erythrocyte distribution width (RBC) [Ratio] 15.1 % Normal 11.9-15.3 [facility] [place] Comment on above: Performed By: #### C BC, FE and TIBC, SHI #### [address] Erythrocytes [#/volume] in B lood by Automated countOrdered By: Bell Camargo on 09-02-2023 RBC (Bld) [#/Vol] 3.02 10*6/uL Low 3.60-5.00 [facility] Comment on above: Performed By: #### C BC, FE and TIBC, SHI #### [address] [address] [place] Ferritin [Mass/volume] in Se rum or PlasmaOrdered By: Bell Raman on 09-02-2023 Ferritin [Mass/Vol] 940.6 ng/mL High 11.0-306.8 [facility] [place] Comment on above: Result Comment: PERF ORMED BY: [place] [address] PATHOLOGIST BLADE BENDER [employer]NA[employer] TENDER ANDI DERAS M.D. Performed By: #### F E and TIBC, SHI, CBC, CMP #### [facility] [address] [place] [address] Hematocrit [Volume Fraction] of Blood by Automated countOrdered By: Bell Camargo on 09-02-2023 Hematocrit (Bld) [Volume fraction] 30.6 % Low 34.0-46.4 [facility] [place] Comment on above: Performed By: #### C BC, FE and TIBC, SHI #### [facility] [address] [place] [address] Hemoglobin [Mass/volume] in BloodOrdered By: Bell Camargo on 09-02-2023 Hemoglobin (Bld) [Mass/Vol] 10.5 g/dL Low 11.8-15.4 [facility] [place] Comment on above: Performed By: #### C BC, FE and TIBC, SHI #### [facility] [address] [place] [address] Iron [Mass/volume] in Serum or PlasmaOrdered By: Bell Camargo on 09-02-2023 Iron [Mass/Vol] 76 ug/dL Normal 50-212 [facility] Comment on above: Performed By: #### C BC, FE and TIBC, SHI #### [facility] [address] [place] [address] Iron and TIBC Profileon 08-23 % Iron Saturation 29.2 % Normal 20-50 [facility] Comment on above: Performed By: #### C BC, FE and TIBC, SHI #### [address] Total Iron Binding Capacity 260 ug/dL Normal 255-450 [facility] Comment on above: Performed By: #### C BC, FE and TIBC, SHI #### [facility] [address] Iron binding capacity [Mass/ volume] in Serum or PlasmaOrdered By: Bell Camargo on 09-02-2023 Iron binding capacity [Mass/Vol] 260 ug/dL 255-450 [facility] Iron saturation [Mass Fracti on] in Serum or PlasmaOrdered By: Bell Camargo on 09-02-2023 Iron saturation [Mass fraction] 29.2 % 20-50 [facility] Leukocytes [#/volume] correc maria e for nucleated erythrocytes in Blood by Automated counOrdered By: Bell Camargo on 09-02-2023 WBC corrected for nucl RBC Auto (Bld) [#/Vol] 3.5 10*3/uL 3.8-11.6 [facility] Leukocytes [#/volume] in Blo od by Automated countOrdered By: Bell Camargo on 09-02-2023 WBC (Bld) [#/Vol] 3.5 10*3/uL Low 3.8-11.6 [facility] Comment on above: Performed By: #### C BC, FE and TIBC, SHI #### [facility] [address] [place] [address] [place] Lymphocytes [#/volume] in Bl ood by Automated countOrdered By: Bell Camargo on 09-02-2023 Lymphocytes (Bld) [#/Vol] 0.8 10*3/uL Low 1.00-4.8 [facility] Comment on above: Performed By: #### C BC, FE and TIBC, SHI #### [facility] [address] [place] [address] [place] Lymphocytes/100 leukocytes i n Blood by Automated countOrdered By: Bell Camargo on 09-02-2023 Lymphocytes/100 WBC (Bld) 21.9 % Normal . [facility] Comment on above: Performed By: #### C BC, FE and TIBC, SHI #### [facility] [address] [place] [address] [place] MCH [Entitic mass] by Automa maria e countOrdered By: Bell Camargo on 09-02-2023 MCH (RBC) [Entitic mass] 34.6 pg High 24.7-34.3 [facility] Comment on above: Performed By: #### C BC, FE and TIBC, SHI #### [address] MCHC Auto (RBC) [Mass/Vol]Or dered By: Bell Camargo on 09-02-2023 MCHC (RBC) [Mass/Vol] 34.2 g/dL 32.0-35.0 [facility] MCV [Entitic volume] by Auto mated countOrdered By: Bell Camargo on 09-02-2023 MCV (RBC) [Entitic vol] 101.3 fL High 80-100 [facility] Comment on above: Performed By: #### C BC, FE and TIBC, SHI #### [address] Neutrophils [#/volume] in Bl ood by Automated countOrdered By: Bell Camargo on 09-02-2023 Neutrophils (Bld) [#/Vol] 2.1 10*3/uL Normal 1.8-7.7 [facility] Comment on above: Performed By: #### C BC, FE and TIBC, SHI #### [facility] [address] [place] [address] Nucleated erythrocytes [Pres ence] in Blood by Automated countOrdered By: Bell Camargo on 09-02-2023 Nucleated RBC Auto Ql (Bld) 0.1 /100{WBC} 0-0.5 [facility] [facility] [place] Platelet mean volume [Entiti c volume] in Blood by Automated countOrdered By: Bell Camargo on 09-02-2023 Platelet mean volume (Bld) [Entitic vol] 8.0 fL Normal 6.3-10.7 [facility] [place] Comment on above: Performed By: #### C BC, FE and TIBC, SHI #### [address] Platelets [#/volume] in Bloo d by Automated countOrdered By: Bell Camargo on 09-02-2023 Platelets (Bld) [#/Vol] 313 10*3/uL Normal 150-450 [facility] [place] Comment on above: Performed By: #### C BC, FE and TIBC, SHI #### [facility] [address] Transferrin [Mass/volume] in Serum or PlasmaOrdered By: Bell Camargo on 09-02-2023 Transferrin [Mass/Vol] 186 mg/dL Low 203-362 [facility] Comment on above: Performed By: #### C BC, FE and TIBC, SHI #### [facility] [address] Basophils Auto (Bld) [#/Vol] Ordered By: Bell Camargo on 05-26-2023 Basophils (Bld) [#/Vol] 0.1 10*3/uL 0.0-0.2 [facility] [place] Basophils/100 WBC Auto (Bld) Ordered By: Bell Camargo on 05-26-2023 Basophils/100 WBC (Bld) 1.3 % . [facility] Eosinophils Auto (Bld) [#/Vo l]Ordered By: Bell Camargo on 05-26-2023 Eosinophils (Bld) [#/Vol] 0.3 10*3/uL 0.0-0.45 [facility] [place] Eosinophils/100 WBC Auto (Bl d)Ordered By: Bell Camargo on 05-26-2023 Eosinophils/100 WBC (Bld) 7.3 % . [facility] [place] Erythrocyte distribution wid th Auto (RBC) [Ratio]Ordered By: Bell Camargo on 05-26-2023 Erythrocyte distribution width (RBC) [Ratio] 16.8 % 11.9-15.3 [facility] [place] Ferritin [Mass/volume] in Se rum or PlasmaOrdered By: Bell Camargo on 05-26-2023 Ferritin [Mass/Vol] 477.2 ng/mL 11.0-306.8 [facility] [place] Hematocrit Auto (Bld) [Volum e fraction]Ordered By: Bell Camargo on 05-26-2023 Hematocrit (Bld) [Volume fraction] 31.2 % 34.0-46.4 [facility] [place] Hemoglobin [Mass/volume] in BloodOrdered By: Bell Camargo on 05-26-2023 Hemoglobin (Bld) [Mass/Vol] 10.3 g/dL 11.8-15.4 [facility] [place] Iron [Mass/volume] in Serum or PlasmaOrdered By: Bell Camargo on 05-26-2023 Iron [Mass/Vol] 44 ug/dL 50-212 [facility] [place] Iron binding capacity [Mass/ volume] in Serum or PlasmaOrdered By: Bell Camargo on 05-26-2023 Iron binding capacity [Mass/Vol] 256 ug/dL 255-450 [facility] [place] Iron saturation [Mass Fracti on] in Serum or PlasmaOrdered By: Bell Camargo on 05-26-2023 Iron saturation [Mass fraction] 17.2 % 20-50 [facility] [place] Leukocytes [#/volume] correc maria e for nucleated erythrocytes in Blood by Automated counOrdered By: Bell Camargo on 05-26-2023 WBC corrected for nucl RBC Auto (Bld) [#/Vol] 4.0 10*3/uL 3.8-11.6 [facility] [place] Lymphocytes Auto (Bld) [#/Vo l]Ordered By: Bell Camargo on 05-26-2023 Lymphocytes (Bld) [#/Vol] 0.8 10*3/uL 1.00-4.8 [facility] [place] Lymphocytes/100 WBC Auto (Bl d)Ordered By: Bell Camargo on 05-26-2023 Lymphocytes/100 WBC (Bld) 20.4 % . [facility] [place] MCH Auto (RBC) [Entitic mass ]Ordered By: Bell Camargo on 05-26-2023 MCH (RBC) [Entitic mass] 32.7 pg 24.7-34.3 [facility] [place] MCHC Auto (RBC) [Mass/Vol]Or dered By: Bell Camargo on 05-26-2023 MCHC (RBC) [Mass/Vol] 33.2 g/dL 32.0-35.0 [facility] MCV Auto (RBC) [Entitic vol] Ordered By: Bell Camargo on 05-26-2023 MCV (RBC) [Entitic vol] 98.6 fL 80-100 [facility] Monocytes Auto (Bld) [#/Vol] Ordered By: Bell Camargo on 05-26-2023 Monocytes (Bld) [#/Vol] 0.3 10*3/uL 0.0-0.8 [facility] [place] Monocytes/100 WBC Auto (Bld) Ordered By: Bell Camargo on 05-26-2023 Monocytes/100 WBC (Bld) 7.8 % . [facility] Neutrophils Auto (Bld) [#/Vo l]Ordered By: Bell Camargo on 05-26-2023 Neutrophils (Bld) [#/Vol] 2.5 10*3/uL 1.8-7.7 [facility] [place] Neutrophils/100 WBC Auto (Bl d)Ordered By: Bell Camargo on 05-26-2023 Neutrophils/100 WBC (Bld) 63.2 % . [facility] [place] Nucleated erythrocytes [Pres ence] in Blood by Automated countOrdered By: Bell Camargo on 05-26-2023 Nucleated RBC Auto Ql (Bld) 0.1 /100{WBC} 0-0.5 [facility] [place] Platelet mean volume Auto (B ld) [Entitic vol]Ordered By: Bell Camargo on 05-26-2023 Platelet mean volume (Bld) [Entitic vol] 8.3 fL 6.3-10.7 [facility] [place] Platelets Auto (Bld) [#/Vol] Ordered By: Bell Camargo on 05-26-2023 Platelets (Bld) [#/Vol] 245 10*3/uL 150-450 [facility] [place] RBC Auto (Bld) [#/Vol]Ordere d By: Bell Camargo on 05-26-2023 RBC (Bld) [#/Vol] 3.16 10*6/uL 3.60-5.00 [facility] Transferrin [Mass/volume] in Serum or PlasmaOrdered By: Bell Camargo on 05-26-2023 Transferrin [Mass/Vol] 183 mg/dL 203-362 [facility] WBC Auto (Bld) [#/Vol]Ordere d By: Bell Camargo on 05-26-2023 WBC (Bld) [#/Vol] 4.0 10*3/uL 3.8-11.6 [facility] Office Visiton 03-30-2023 Follow-up visit [id number] Terri Newton 1945 F Date Provider Department Center 03/30/2023 [id number] FAM [facility] Family History Problem Relation Age of Onset Atrial fibrillation Brother Family Status - Relation Status Age at Brother Level of Service:82089 [place] OFFICE/OUTPATIENT ESTABLISHED LOW MDM 20-29 MIN Normal [facility] CBC AUTO DIFFon 11-24-2022 BASO # 0.1 103/ul Normal 0.0-0.1 [facility] Comment on above: Performed By: #### C BC #### [facility] [address] [address] [address] Albert Briscoe Basophils/100 WBC (Bld) 1.0 % Normal 0.2-2.0 [facility] Comment on above: Performed By: #### C BC #### [facility] [address] [place] [address] Dr. Albert Briscoe EO # 0.3 103/ul Normal 0.0-0.7 [facility] Comment on above: Performed By: #### C BC #### [facility] [address] [address] [address] Albert Briscoe Eosinophils/100 WBC (Bld) 6.9 % Normal 0.9-7.0 [facility] Comment on above: Performed By: #### C BC #### [facility] [address] [address] [address] Albert Briscoe Erythrocyte distribution width (RBC) [Ratio] 14.8 % Normal 11.0-15.0 [facility] Comment on above: Performed By: #### C BC #### [facility] [address] [place] [address] Dr. Albert Briscoe Hematocrit (Bld) [Volume fraction] 23.7 % Critically low 36.0-48.0 [facility] Comment on above: Performed By: #### C BC #### [facility] [address] [address] [address] Albert Briscoe Hemoglobin (Bld) [Mass/Vol] 7.3 g/dL Critically low 12.0-16.0 [facility] Comment on above: Performed By: #### C BC #### [facility] [address] [place] [address] Dr. Albert Briscoe IG # 0.02 10e3/ul Normal 0.00-0.03 [facility] Comment on above: Performed By: #### C BC #### [facility] [address] [place] [address] Dr. Albert Briscoe IG % 0.4 % Normal 0.0-0.5 [facility] Comment on above: Performed By: #### C BC #### [facility] [address] [place] [address] Dr. Albert Briscoe LYMPH # 1.2 103/ul Normal 1.2-3.8 [facility] Comment on above: Performed By: #### C BC #### [facility] [address] [place] [address] Dr. Albert Briscoe Lymphocytes/100 WBC (Bld) 25.1 % Normal 20.5-60.0 [facility] Comment on above: Performed By: #### C BC #### [facility] [address] [place] [address] Dr. Albert Briscoe MANUAL DIFF REQ NO Normal [facility] Comment on above: Performed By: #### C BC #### [facility] [address] [place] [address] Dr. Albert Briscoe MCH (RBC) [Entitic mass] 30.4 pg Normal 26.7-34.0 [facility] Comment on above: Performed By: #### C BC #### [facility] [address] [place] [address] Dr. Albert Briscoe MCHC (RBC) [Mass/Vol] 30.8 g/dL Normal 29.9-35.2 [facility] Comment on above: Performed By: #### C BC #### [facility] [address] [place] [address] Dr. Albert Briscoe MCV (RBC) [Entitic vol] 98.8 fL Normal 81.0-99.0 [facility] Comment on above: Performed By: #### C BC #### [facility] [address] [place] [address] Dr. Albert Briscoe MONO # 0.4 103/ul Normal 0.3-0.8 [facility] Comment on above: Performed By: #### C BC #### [facility] [address] [place] [address] Dr. Albert Briscoe Monocytes/100 WBC (Bld) 8.1 % Normal 1.7-12.0 [facility] Comment on above: Performed By: #### C BC #### [facility] [address] [place] [address] Dr. Albert Briscoe NEUT # 2.8 103/ul Normal 1.4-6.5 [facility] Comment on above: Performed By: #### C BC #### [facility] [address] [place] [address] Dr. Albert rBiscoe Neutrophils/100 WBC (Bld) 58.5 % Normal 43.0-75.0 [facility] Comment on above: Performed By: #### C BC #### [facility] [address] [place] [address] Dr. Albert Briscoe Platelet mean volume (Bld) [Entitic vol] 9.1 fL Critically low 9.5-13.5 [facility] Comment on above: Performed By: #### C BC #### [facility] [address] [place] [address] Dr. Albert Briscoe PLT 315 103/ul Normal 150-[address] [facility] Comment on above: Performed By: #### C BC #### [facility] [address] [place] [address] Dr. Albert Briscoe RBC 2.40 106/ul Critically low 4.20-5.40 [facility] Comment on above: Performed By: #### C BC #### [facility] [address] [place] [address] Dr. Albert Briscoe WBC 4.8 103/ul Normal 4.0-11.0 [facility] Comment on above: Performed By: #### C BC #### [facility] [address] [place] [address] Dr. Albert Briscoe FERRITINon 11-24-2022 Ferritin [Mass/Vol] 53.0 ng/mL Normal 8.0-252.0 [facility] Comment on above: Performed By: #### B 12FOL, FETIBC, FERR #### [facility] [address] [place] [address] Dr. Albert Briscoe IRON AND TIBCon 11-24-2022 % SATURATION 10.6 % Normal [facility] Comment on above: Performed By: #### B 12FOL, FETIBC, FERR #### [facility] [address] [address] [address] Albert Briscoe Iron [Mass/Vol] 34.0 ug/dL Critically low 50.0-170.0 [facility] Comment on above: Performed By: #### B 12FOL, FETIBC, FERR #### [facility] [address] [place] [address] Dr. Albert Briscoe TIBC DIRECT 322.0 ug/dL Normal 250.0-450.0 [facility] [place] Comment on above: Performed By: #### B 12FOL, FETIBC, FERR #### [facility] [address] [place] [address] Dr. Albert Briscoe PROF 14(COMP METB)on 023 Albumin [Mass/Vol] 3.6 g/dL Normal 3.4-5.0 [facility] Comment on above: Performed By: #### B 12FOL, FETIBC, FERR #### [facility] [address] [place] [address] Dr. Albert Briscoe Albumin/Globulin [Mass ratio] 1.0 {ratio} Normal [facility] Comment on above: Performed By: #### B 12FOL, FETIBC, FERR #### [facility] [address] [place] [address] Dr. Albert Briscoe ALP [Catalytic activity/Vol] 104 U/L Normal 46-[address] [facility] Comment on above: Performed By: #### B 12FOL, FETIBC, FERR #### [facility] [address] [place] [address] Dr. Albert Briscoe ALT [Catalytic activity/Vol] 16 U/L Normal 14-59 [facility] Comment on above: Performed By: #### B 12FOL, FETIBC, FERR #### [facility] [address] [address] [address] Albert Briscoe Anion gap [Moles/Vol] 12.0 mmol/L Normal [facility] Comment on above: Performed By: #### B 12FOL, FETIBC, FERR #### [facility] [address] [address] [address] Albert Briscoe AST [Catalytic activity/Vol] 11 U/L Critically low 15-37 [facility] Comment on above: Performed By: #### B 12FOL, FETIBC, FERR #### [facility] [address] [address] [address] Albert Briscoe Bilirubin [Mass/Vol] 0.2 mg/dL Normal 0.2-1.0 [facility] Comment on above: Performed By: #### B 12FOL, FETIBC, FERR #### [facility] [address] [address] [address] Albert Briscoe Calcium [Mass/Vol] 8.8 mg/dL Normal 8.5-10.1 [facility] Comment on above: Performed By: #### B 12FOL, FETIBC, FERR #### [facility] [address] [address] [address] Albert Briscoe Chloride [Moles/Vol] 103 mmol/L Normal 98-107 [facility] Comment on above: Performed By: #### B 12FOL, FETIBC, FERR #### [facility] [address] [address] [address] Albert Briscoe CO2 [Moles/Vol] 29.0 mmol/L Normal 21.0-32.0 [facility] Comment on above: Performed By: #### B 12FOL, FETIBC, FERR #### [facility] [address] [address] [address] Albert Briscoe Creatinine [Mass/Vol] 1.71 mg/dL Critically high 0.55-1.02 [facility] Comment on above: Performed By: #### B 12FOL, FETIBC, FERR #### [facility] [address] [place] [address] Dr. Albert Briscoe EGFR-AF TURKISH 35 mL/min/1.73m2 Critically low >=60 [facility] Comment on above: Performed By: #### B 12FOL, FETIBC, FERR #### [facility] [address] [place] [address] Dr. Albert Briscoe EGFR-NON AF TURKISH 29 mL/min/1.73m2 Critically low >=60 [facility] Comment on above: Performed By: #### B 12FOL, FETIBC, FERR #### [facility] [address] [place] [address] Dr. Albert Briscoe Globulin (S) [Mass/Vol] 3.7 g/dL Normal [facility] Comment on above: Performed By: #### B 12FOL, FETIBC, FERR #### [facility] [address] [place] [address] Dr. Albert Briscoe Glucose [Mass/Vol] 108 mg/dL Critically high 74-106 [facility] Comment on above: Performed By: #### B 12FOL, FETIBC, FERR #### [facility] [address] [place] [address] Dr. Albert Briscoe Potassium [Moles/Vol] 4.0 mmol/L Normal 3.5-5.1 [facility] Comment on above: Performed By: #### B 12FOL, FETIBC, FERR #### [facility] [address] [place] [address] Dr. Albert Briscoe Protein [Mass/Vol] 7.3 g/dL Normal 6.4-8.2 [facility] Comment on above: Performed By: #### B 12FOL, FETIBC, FERR #### [facility] [address] [place] [address] Dr. Albert Briscoe Sodium [Moles/Vol] 140 mmol/L Normal 136-145 [facility] Comment on above: Performed By: #### B 12FOL, FETIBC, FERR #### [facility] [address] [place] [address] Dr. Albert Briscoe Urea nitrogen [Mass/Vol] 32.0 mg/dL Critically high 7.0-18.0 [facility] Comment on above: Performed By: #### B 12FOL, FETIBC, FERR #### [facility] [address] [place] [address] Dr. Albert Briscoe Urea nitrogen/Creatinine [Mass ratio] 18.7 mg/mg Normal [facility] Comment on above: Performed By: #### B 12FOL, FETIBC, FERR #### [facility] [address] [place] [address] Dr. Albert Briscoe CBC AUTO DIFFon 09-25-2022 BASO # 0.1 103/ul Normal 0.0-0.1 [facility] Comment on above: Performed By: #### C BC #### [facility] [address] [place] [address] Dr. Albert Briscoe Basophils/100 WBC (Bld) 1.1 % Normal 0.2-2.0 [facility] Comment on above: Performed By: #### C BC #### [facility] [address] [place] [address] Dr. Albert Briscoe EO # 0.2 103/ul Normal 0.0-0.7 [facility] Comment on above: Performed By: #### C BC #### [facility] [address] [place] [address] Dr. Albert Briscoe Eosinophils/100 WBC (Bld) 4.7 % Normal 0.9-7.0 [facility] Comment on above: Performed By: #### C BC #### [facility] [address] [place] [address] Dr. Albert Briscoe Erythrocyte distribution width (RBC) [Ratio] 16.5 % Critically high 11.0-15.0 [facility] Comment on above: Performed By: #### C BC #### [facility] [address] [place] [address] Dr. Albert Briscoe Hematocrit (Bld) [Volume fraction] 33.7 % Critically low 36.0-48.0 [facility] Comment on above: Performed By: #### C BC #### [facility] [address] [place] [address] Dr. Albert Briscoe Hemoglobin (Bld) [Mass/Vol] 10.1 g/dL Critically low 12.0-16.[address] [facility] Comment on above: Performed By: #### C BC #### [facility] [address] [place] [address] Dr. Albert Briscoe IG # 0.05 10e3/ul Critically high 0.00-0.03 [facility] Comment on above: Performed By: #### C BC #### [facility] [address] [place] [address] Dr. Albert Briscoe IG % 1.1 % Critically high 0.0-0.5 [facility] [place] Comment on above: Performed By: #### C BC #### [facility] [address] [place] [address] Dr. Albert Briscoe LYMPH # 1.4 103/ul Normal 1.2-3.[address] [facility] Comment on above: Performed By: #### C BC #### [facility] [address] [place] [address] Dr. Albert Briscoe Lymphocytes/100 WBC (Bld) 29.7 % Normal 20.5-60.[address] [facility] Comment on above: Performed By: #### C BC #### [facility] [address] [place] [address] Dr. Albert Briscoe MANUAL DIFF REQ NO Normal [facility] [place] Comment on above: Performed By: #### C BC #### [facility] [address] [place] [address] Dr. Albert Briscoe MCH (RBC) [Entitic mass] 31.2 pg Normal 26.7-34.0 [facility] Comment on above: Performed By: #### C BC #### [facility] [address] [place] [address] Dr. Albert Briscoe MCHC (RBC) [Mass/Vol] 30.0 g/dL Normal 29.9-35.2 [facility] Comment on above: Performed By: #### C BC #### [facility] [address] [place] [address] Dr. Albert Briscoe MCV (RBC) [Entitic vol] 104.0 fL Critically high 81.0-99 .0 [facility] Comment on above: Performed By: #### C BC #### [facility] [address] [place] [address] Dr. Albert Briscoe MONO # 0.4 103/ul Normal 0.3-0.8 [facility] Comment on above: Performed By: #### C BC #### [facility] [address] [place] [address] Dr. Albert Briscoe Monocytes/100 WBC (Bld) 8.1 % Normal 1.7-12.0 [facility] Comment on above: Performed By: #### C BC #### [facility] [address] [place] [address] Dr. Albert Briscoe NEUT # 2.6 103/ul Normal 1.4-6.5 [facility] Comment on above: Performed By: #### C BC #### [facility] [address] [place] [address] Dr. Albert Briscoe Neutrophils/100 WBC (Bld) 55.3 % Normal 43.0-75.0 [facility] Comment on above: Performed By: #### C BC #### [facility] [address] [place] [address] Dr. lAbert Briscoe Platelet mean volume (Bld) [Entitic vol] 10.9 fL Normal 9.5-13.5 [facility] Comment on above: Performed By: #### C BC #### [facility] [address] [place] [address] Dr. Albert Briscoe PLT 276 103/ul Normal 150-450 [facility] Comment on above: Performed By: #### C BC #### [facility] [address] [place] [address] Dr. Albert Briscoe RBC 3.24 106/ul Critically low 4.20-5.40 [facility] Comment on above: Performed By: #### C BC #### [facility] [address] [place] [address] Dr. Albert Briscoe WBC 4.7 103/ul Normal 4.0-11.0 [facility] Comment on above: Performed By: #### C BC #### [facility] [address] [place] [address] Dr. Albert Briscoe IRON AND TIBCon 09-25-2022 % SATURATION 15.5 % Normal [facility] Comment on above: Performed By: #### C BC #### [facility] [address] [place] [address] Dr. Albert Briscoe Iron [Mass/Vol] 49.0 ug/dL Critically low 50.0-170.0 [facility] Comment on above: Performed By: #### C BC #### [facility] [address] [place] [address] Dr. Albert Briscoe TIBC DIRECT 316.0 ug/dL Normal 250.0-450.0 [facility] [place] Comment on above: Performed By: #### C BC #### [facility] [address] [place] [address] Dr. Albert Briscoe METHYLMALONIC ACID (MMA)on 0 08-30-2022 Methylmalonic Acid, Serum 246 nmol/L Normal 0-378 [facility] Comment on above: Performed By: #### C BC #### [facility] [address] [place] [address] Dr. Albert Briscoe CBC AUTO DIFFon 08-25-2022 BASO # 0.0 103/ul Normal 0.0-0.1 [facility] Comment on above: Performed By: #### C BC #### [facility] [address] [place] [address] Dr. Albert Briscoe Basophils/100 WBC (Bld) 0.6 % Normal 0.2-2.0 [facility] Comment on above: Performed By: #### C BC #### [facility] [address] [place] [address] Dr. Albert Briscoe EO # 0.2 103/ul Normal 0.0-0.7 [facility] Comment on above: Performed By: #### C BC #### [facility] [address] [place] [address] Dr. Albert Briscoe Eosinophils/100 WBC (Bld) 3.3 % Normal 0.9-7.0 [facility] Comment on above: Performed By: #### C BC #### [facility] [address] [place] [address] Dr. Albert Briscoe Erythrocyte distribution width (RBC) [Ratio] 13.7 % Normal 11.0-15.0 [facility] Comment on above: Performed By: #### C BC #### [facility] [address] [place] [address] Dr. Albert Briscoe Hematocrit (Bld) [Volume fraction] 27.3 % Critically low 36.0-48.0 [facility] Comment on above: Performed By: #### C BC #### [facility] [address] [place] [address] Dr. Albert Briscoe Hemoglobin (Bld) [Mass/Vol] 8.9 g/dL Critically low 12.0-16.0 [facility] Comment on above: Performed By: #### C BC #### [facility] [address] [place] [address] Dr. Albert Briscoe IG # 0.15 10e3/ul Critically high 0.00-0.03 [facility] Comment on above: Performed By: #### C BC #### [facility] [address] [place] [address] Dr. Albert Briscoe IG % 2.3 % Critically high 0.0-0.5 [facility] [place] Comment on above: Performed By: #### C BC #### [facility] [address] [place] [address] Dr. Albert Briscoe LYMPH # 1.2 103/ul Normal 1.2-3.[address] [facility] Comment on above: Performed By: #### C BC #### [facility] [address] [place] [address] Dr. Albert Briscoe Lymphocytes/100 WBC (Bld) 18.2 % Critically low 20.5-60.0 [facility] Comment on above: Performed By: #### C BC #### [facility] [address] [place] [address] Dr. Albert Briscoe MANUAL DIFF REQ NO Normal [facility] Comment on above: Performed By: #### C BC #### [facility] [address] [place] [address] Dr. Albert Briscoe MCH (RBC) [Entitic mass] 31.2 pg Normal 26.7-34.0 [facility] Comment on above: Performed By: #### C BC #### [facility] [address] [place] [address] Dr. Albert Briscoe MCHC (RBC) [Mass/Vol] 32.6 g/dL Normal 29.9-35.2 [facility] Comment on above: Performed By: #### C BC #### [facility] [address] [place] [address] Dr. Albert Briscoe MCV (RBC) [Entitic vol] 95.8 fL Normal 81.0-99.0 [facility] Comment on above: Performed By: #### C BC #### [facility] [address] [place] [address] Dr. Albert Briscoe MONO # 0.8 103/ul Normal 0.3-0.8 [facility] Comment on above: Performed By: #### C BC #### [facility] [address] [place] [address] Dr. Albert Briscoe Monocytes/100 WBC (Bld) 12.5 % Critically high 1.7-12. 0 [facility] Comment on above: Performed By: #### C BC #### [facility] [address] [place] [address] Dr. Albert Briscoe NEUT # 4.0 103/ul Normal 1.4-6.5 [facility] Comment on above: Performed By: #### C BC #### [facility] [address] [place] [address] Dr. Albert Briscoe Neutrophils/100 WBC (Bld) 63.1 % Normal 43.0-75.0 [facility] Comment on above: Performed By: #### C BC #### [facility] [address] [place] [address] Dr. Albert Briscoe Platelet mean volume (Bld) [Entitic vol] 11.0 fL Normal 9.5-13.5 [facility] Comment on above: Performed By: #### C BC #### [facility] [address] [place] [address] Dr. Albert Briscoe PLT 223 103/ul Normal 150-450 [facility] Comment on above: Performed By: #### C BC #### [facility] [address] [place] [address] Dr. Albert Briscoe RBC 2.85 106/ul Critically low 4.20-5.40 [facility] Comment on above: Performed By: #### C BC #### [facility] [address] [place] [address] Dr. Albert Briscoe WBC 6.4 103/ul Normal 4.0-11.0 [facility] Comment on above: Performed By: #### C BC #### [facility] [address] [place] [address] Dr. Albert Briscoe FERRITINon 08-25-2022 Ferritin [Mass/Vol] 114.0 ng/mL Normal 8.0-252.0 [facility] Comment on above: Performed By: #### F ETIBC, FERR #### [facility] [address] [place] [address] Dr. Albert Briscoe IRON AND TIBCon 08-25-2022 % SATURATION 8.6 % Normal [facility] Comment on above: Performed By: #### F ETIBC, FERR #### [facility] [address] [place] [address] Dr. Albert Briscoe Iron [Mass/Vol] 24.0 ug/dL Critically low 50.0-170.0 [facility] Comment on above: Performed By: #### F ETIBC, FERR #### [facility] [address] [place] [address] Dr. Albert Briscoe TIBC DIRECT 278.0 ug/dL Normal 250.0-450.0 [facility] Comment on above: Performed By: #### F ETIBC, FERR #### [facility] [address] [place] [address] Dr. Albert Briscoe BNPon 08-19-2022 Natriuretic peptide B (Bld) [Mass/Vol] 753.0 pg/mL Normal <=1,800.0 [facility] Comment on above: Performed By: #### C BC #### [facility] [address] [place] [address] Dr. Albert Briscoe CBC AUTO DIFFon 08-19-2022 BASO # 0.1 103/ul Normal 0.0-0.1 [facility] Comment on above: Performed By: #### B 12FOL, FETIBC, FERR #### [facility] [address] [place] [address] Dr. Albert Briscoe Basophils/100 WBC (Bld) 0.9 % Normal 0.2-2.0 [facility] Comment on above: Performed By: #### B 12FOL, FETIBC, FERR #### [facility] [address] [place] [address] Dr. Albert Briscoe EO # 0.1 103/ul Normal 0.0-0.7 [facility] Comment on above: Performed By: #### B 12FOL, FETIBC, FERR #### [facility] [address] [place] [address] Dr. Albert Briscoe Eosinophils/100 WBC (Bld) 2.1 % Normal 0.9-7.0 [facility] Comment on above: Performed By: #### B 12FOL, FETIBC, FERR #### [facility] [address] [place] [address] Dr. Albert Briscoe Erythrocyte distribution width (RBC) [Ratio] 14.0 % Normal 11.0-15.0 [facility] Comment on above: Performed By: #### B 12FOL, FETIBC, FERR #### [facility] [address] [place] [address] Dr. Albert Briscoe Hematocrit (Bld) [Volume fraction] 32.1 % Critically low 36.0-48.0 [facility] Comment on above: Performed By: #### B 12FOL, FETIBC, FERR #### [facility] [address] [place] [address] Dr. Albert Briscoe Hemoglobin (Bld) [Mass/Vol] 10.3 g/dL Critically low 12.0-16.[address] [facility] Comment on above: Performed By: #### B 12FOL, FETIBC, FERR #### [facility] [address] [place] [address] Dr. Albert Briscoe IG # 0.22 10e3/ul Critically high 0.00-0.03 [facility] Comment on above: Performed By: #### B 12FOL, FETIBC, FERR #### [facility] [address] [place] [address] Dr. Albert Briscoe IG % 4.1 % Critically high 0.0-0.5 [facility] [place] Comment on above: Performed By: #### B 12FOL, FETIBC, FERR #### [facility] [address] [place] [address] Dr. Albert Briscoe LYMPH # 0.9 103/ul Critically low 1.2-3.8 [facility] Comment on above: Performed By: #### B 12FOL, FETIBC, FERR #### [facility] [address] [address] [address] Albert Briscoe Lymphocytes/100 WBC (Bld) 17.4 % Critically low 20.5-60.0 [facility] Comment on above: Performed By: #### B 12FOL, FETIBC, FERR #### [facility] [address] [address] [address] Albert Briscoe MANUAL DIFF REQ NO Normal [facility] [place] Comment on above: Performed By: #### B 12FOL, FETIBC, FERR #### [facility] [address] [place] [address] Dr. Albert Briscoe MCH (RBC) [Entitic mass] 30.7 pg Normal 26.7-34.0 [facility] Comment on above: Performed By: #### B 12FOL, FETIBC, FERR #### [facility] [address] [place] [address] Dr. Albert Briscoe MCHC (RBC) [Mass/Vol] 32.1 g/dL Normal 29.9-35.2 [facility] Comment on above: Performed By: #### B 12FOL, FETIBC, FERR #### [facility] [address] [place] [address] Dr. Albert Briscoe MCV (RBC) [Entitic vol] 95.5 fL Normal 81.0-99.0 [facility] Comment on above: Performed By: #### B 12FOL, FETIBC, FERR #### [facility] [address] [place] [address] Dr. Albert Briscoe MONO # 0.5 103/ul Normal 0.3-0.8 [facility] Comment on above: Performed By: #### B 12FOL, FETIBC, FERR #### [facility] [address] [place] [address] Dr. Albert Briscoe Monocytes/100 WBC (Bld) 9.4 % Normal 1.7-12.0 [facility] Comment on above: Performed By: #### B 12FOL, FETIBC, FERR #### [facility] [address] [place] [address] Dr. Albert Briscoe NEUT # 3.5 103/ul Normal 1.4-6.5 [facility] Comment on above: Performed By: #### B 12FOL, FETIBC, FERR #### [facility] [address] [place] [address] Dr. Albert Briscoe Neutrophils/100 WBC (Bld) 66.1 % Normal 43.0-75.0 [facility] Comment on above: Performed By: #### B 12FOL, FETIBC, FERR #### [facility] [address] [place] [address] Dr. Albert Briscoe Platelet mean volume (Bld) [Entitic vol] 9.6 fL Normal 9.5-13.5 [facility] Comment on above: Performed By: #### B 12FOL, FETIBC, FERR #### [facility] [address] [address] [address] Albert Briscoe PLT 247 103/ul Normal 150-[address] [facility] Comment on above: Performed By: #### B 12FOL, FETIBC, FERR #### [facility] [address] [address] [address] Albert Briscoe RBC 3.36 106/ul Critically low 4.20-5.40 [facility] Comment on above: Performed By: #### B 12FOL, FETIBC, FERR #### [facility] [address] [place] [address] Dr. Albert Briscoe WBC 5.3 103/ul Normal 4.0-11.0 [facility] Comment on above: Performed By: #### B 12FOL, FETIBC, FERR #### [facility] [address] [place] [address] Dr. Albert Briscoe [facility]on 07-24 SARS-CoV-2 (COVID-19) RNA TRACIE+probe Ql (Unsp spec) Not detected Normal NOT DETECTED [facility] Comment on above: Result Comment: This test is not yet approved or cleared by the [place] FDA. When there are no FDA-approved or cleared tests available, and other criteria are met, FDA can make tests available under an emergency access mechanism called an Emergency Use Authorization (EUA). The EUA for this test is supported by the [employer] of Health and Human Service's (HHS's) declaration [...] By: #### B 12FOL, FETIBC, FERR #### [facility] [address] [place] [address] Dr. Albert Briscoe INFLUENZA A AND B AGon 08-19 INFLUANEGH SEE BELOW Normal [facility] Comment on above: Result Comment: Nega tive for Flu A protein angiten. Infection due to Flu A cannot be ruled out. Flu A angiten in the sample may be below the detection limit of the test. Performed By: #### B 12FOL, FETIBC, FERR #### [facility] [address] [place] [address] Dr. Albert [facility] SEE BELOW Normal [facility] Comment on above: Result Comment: Nega tive for Flu B protein antigen. Infection due to Flu B cannot be ruled out. Flu B antigen in the sample may be below the detection limit of the test. Performed By: #### B 12FOL, FETIBC, FERR #### [facility] [address] [place] [address] Dr. Albert Briscoe INFLUENZA A AG Negative Normal NEGATIVE SEE COMMENT [facility] Comment on above: Performed By: #### B 12FOL, FETIBC, FERR #### [facility] [address] [place] [address] Dr. Albert Briscoe INFLUENZA B AG Negative Normal NEGATIVE SEE COMMENT [facility] Comment on above: Performed By: #### B 12FOL, FETIBC, FERR #### [facility] [address] [place] [address] Dr. Albert Briscoe PROF 14(COMP METB)on 022 Albumin [Mass/Vol] 3.5 g/dL Normal 3.4-5.0 [facility] Comment on above: Performed By: #### C BC #### [facility] [address] [place] [address] Dr. Albert Briscoe Albumin/Globulin [Mass ratio] 0.9 {ratio} Normal [facility] Comment on above: Performed By: #### C BC #### [facility] [address] [place] [address] Dr. Albert Briscoe ALP [Catalytic activity/Vol] 106 U/L Normal 46-116 [facility] Comment on above: Performed By: #### C BC #### [facility] [address] [address] [address] Albert Briscoe ALT [Catalytic activity/Vol] 12 U/L Critically low 14-59 [facility] Comment on above: Performed By: #### C BC #### [facility] [address] [address] [address] Albert Briscoe Anion gap [Moles/Vol] 12.1 mmol/L Normal [facility] Comment on above: Performed By: #### C BC #### [facility] [address] [address] [address] Albert Briscoe AST [Catalytic activity/Vol] 14 U/L Critically low 15-37 [facility] Comment on above: Performed By: #### C BC #### [facility] [address] [address] [address] Albert Briscoe Bilirubin [Mass/Vol] 0.2 mg/dL Normal 0.2-1.0 [facility] Comment on above: Performed By: #### C BC #### [facility] [address] [place] [address] Dr. Albert Briscoe Calcium [Mass/Vol] 8.6 mg/dL Normal 8.5-10.1 [facility] Comment on above: Performed By: #### C BC #### [facility] [address] [address] [address] Albert Briscoe Chloride [Moles/Vol] 96 mmol/L Critically low 98-107 [facility] Comment on above: Performed By: #### C BC #### [facility] [address] [address] [address] Albert Briscoe CO2 [Moles/Vol] 30.9 mmol/L Normal 21.0-32.0 [facility] Comment on above: Performed By: #### C BC #### [facility] [address] [address] [address] Albert Briscoe Creatinine [Mass/Vol] 1.68 mg/dL Critically high 0.55-1.02 [facility] Comment on above: Performed By: #### C BC #### [facility] [address] [place] [address] Dr. Albert Briscoe EGFR-AF TURKISH 36 mL/min/1.73m2 Critically low >=60 [facility] Comment on above: Performed By: #### C BC #### [facility] [address] [address] [address] Albert Briscoe EGFR-NON AF TURKISH 30 mL/min/1.73m2 Critically low >=60 [facility] Comment on above: Performed By: #### C BC #### [facility] [address] [place] [address] Dr. Albert Briscoe Globulin (S) [Mass/Vol] 3.7 g/dL Normal [facility] Comment on above: Performed By: #### C BC #### [facility] [address] [place] [address] Dr. Albert Briscoe Glucose [Mass/Vol] 109 mg/dL Critically high 74-106 [facility] Comment on above: Performed By: #### C BC #### [facility] [address] [place] [address] Dr. Albert Briscoe Potassium [Moles/Vol] 4.0 mmol/L Normal 3.5-5.1 [facility] Comment on above: Performed By: #### C BC #### [facility] [address] [place] [address] Dr. Albert Briscoe Protein [Mass/Vol] 7.2 g/dL Normal 6.4-8.2 [facility] Comment on above: Performed By: #### C BC #### [facility] [address] [address] [address] Albert Briscoe Sodium [Moles/Vol] 135 mmol/L Critically low 136-145 [facility] Comment on above: Performed By: #### C BC #### [facility] [address] [place] [address] Dr. Albert Briscoe Urea nitrogen [Mass/Vol] 52.0 mg/dL Critically high 7.0-18.0 [facility] Comment on above: Performed By: #### C BC #### [facility] [address] [place] [address] Dr. Albert Briscoe Urea nitrogen/Creatinine [Mass ratio] 31.0 mg/mg Normal [facility] Comment on above: Performed By: #### C BC #### [facility] [address] [place] [address] Dr. Albert Briscoe PROTIMEon 08-19-2022 INR Coag (PPP) [Relative time] 0.98 {INR} Normal [facility] Comment on above: Performed By: #### B 12FOL, FETIBC, FERR #### [facility] [address] [place] [address] Dr. Albert Briscoe INR GUIDELINES SEE BELOW Normal [facility] Comment on above: Result Comment: DREW RED INR: 2.0 - 3.0 CONDITIONS NOT LISTED BELOW 2.5 - 3.5 FOR PROSTHETIC HEART VALVE REPLACEMENT 2.5 - 3.5 RECURRENT THROMBOSIS Performed By: #### B 12FOL, FETIBC, FERR #### [facility] [address] [place] [address] Dr. Albert Briscoe PT Coag (PPP) [Time] 10.6 s Normal 9.0-11.6 [facility] Comment on above: Performed By: #### B 12FOL, FETIBC, FERR #### [facility] [address] [place] [address] Dr. Albert Briscoe PTTon 08-19-2022 aPTT Coag (Bld) [Time] 24.4 s Normal 22.3-36.2 [facility] Comment on above: Performed By: #### B 12FOL, FETIBC, FERR #### [facility] [address] [place] [address] Dr. Albert Briscoe TROPONIN, HIGH SENSITIVITYon 08-19-2022 HSTROP 139.4 pg/mL Critically high 4.0-51.3 [facility] Comment on above: Result Comment: CUT- OFF POINTS HAVE BEEN ESTABLISHED BASED ON THE FOURTH UNIVERSAL DEFINITIONS OF MYOCARDIAL INFARCTION. THE UPPER REFERENCE LIMIT (URL) OF TROPONIN, DEFINED THE 99TH PERCENTILE OF cTnI DISTRIBUTION IN A REFERENCE POPULATION, HAS BEEN CONFIRMED THE DECISION THRESHOLD FOR [place] DIAGNOSIS. Performed By: #### C BC #### [facility] [address] [place] [address] Dr. Albert Briscoe HSTROP 150.0 pg/mL Critically high 4.0-51.3 [facility] Comment on above: Result Comment: CUT- OFF POINTS HAVE BEEN ESTABLISHED BASED ON THE FOURTH UNIVERSAL DEFINITIONS OF MYOCARDIAL INFARCTION. THE UPPER REFERENCE LIMIT (URL) OF TROPONIN, DEFINED THE 99TH PERCENTILE OF cTnI DISTRIBUTION IN A REFERENCE POPULATION, HAS BEEN CONFIRMED THE DECISION THRESHOLD FOR [place] DIAGNOSIS. Performed By: #### C BC #### [facility] [address] [place] [address] Dr. Albert Briscoe XR CHEST 1 Von [...] ALEM ARANDA Date: 2022-08-19 19:[address] [facility] CBC AUTO DIFFon 05-25-2022 BASO # 0.1 103/ul Normal 0.0-0.1 [facility] Comment on above: Performed By: #### C BC #### [facility] [address] [place] [address] Dr. Albert Briscoe Basophils/100 WBC (Bld) 1.4 % Normal 0.2-2.0 [facility] Comment on above: Performed By: #### C BC #### [facility] [address] [place] [address] Dr. Albert Briscoe EO # 0.5 103/ul Normal 0.0-0.7 [facility] Comment on above: Performed By: #### C BC #### [facility] [address] [place] [address] Dr. Albert Briscoe Eosinophils/100 WBC (Bld) 11.1 % Critically high 0.9-7.0 [facility] Comment on above: Performed By: #### C BC #### [facility] [address] [place] [address] Dr. Albert Briscoe Erythrocyte distribution width (RBC) [Ratio] 14.6 % Normal 11.0-15.0 [facility] Comment on above: Performed By: #### C BC #### [facility] [address] [place] [address] Dr. Albert Briscoe Hematocrit (Bld) [Volume fraction] 30.8 % Critically low 36.0-48.0 [facility] Comment on above: Performed By: #### C BC #### [facility] [address] [place] [address] Dr. Albert Briscoe Hemoglobin (Bld) [Mass/Vol] 9.6 g/dL Critically low 12.0-16.0 [facility] Comment on above: Performed By: #### C BC #### [facility] [address] [place] [address] Dr. Albert Briscoe IG # 0.03 10e3/ul Normal 0.00-0.03 [facility] Comment on above: Performed By: #### C BC #### [facility] [address] [place] [address] Dr. Alebrt Briscoe IG % 0.7 % Critically high 0.0-0.5 [facility] Comment on above: Performed By: #### C BC #### [facility] [address] [place] [address] Dr. Albert Briscoe LYMPH # 1.0 103/ul Critically low 1.2-3.8 [facility] Comment on above: Performed By: #### C BC #### [facility] [address] [place] [address] Dr. Albert Briscoe Lymphocytes/100 WBC (Bld) 22.9 % Normal 20.5-60.0 [facility] Comment on above: Performed By: #### C BC #### [facility] [address] [place] [address] Dr. Albert Briscoe MANUAL DIFF REQ NO Normal [facility] [place] Comment on above: Performed By: #### C BC #### [facility] [address] [address] [address] Albert Briscoe MCH (RBC) [Entitic mass] 32.7 pg Normal 26.7-34.0 [facility] Comment on above: Performed By: #### C BC #### [facility] [address] [place] [address] Dr. Albert Briscoe MCHC (RBC) [Mass/Vol] 31.2 g/dL Normal 29.9-35.2 [facility] Comment on above: Performed By: #### C BC #### [facility] [address] [place] [address] Dr. Albert Briscoe MCV (RBC) [Entitic vol] 104.8 fL Critically high 81.0-99 .0 [facility] Comment on above: Performed By: #### C BC #### [facility] [address] [place] [address] Dr. Albert Briscoe MONO # 0.3 103/ul Normal 0.3-0.8 [facility] Comment on above: Performed By: #### C BC #### [facility] [address] [place] [address] Dr. Albert Briscoe Monocytes/100 WBC (Bld) 7.3 % Normal 1.7-12.0 [facility] Comment on above: Performed By: #### C BC #### [facility] [address] [place] [address] Dr. Albert Briscoe NEUT # 2.5 103/ul Normal 1.4-6.5 [facility] Comment on above: Performed By: #### C BC #### [facility] [address] [place] [address] Dr. Albert Briscoe Neutrophils/100 WBC (Bld) 56.6 % Normal 43.0-75.0 [facility] Comment on above: Performed By: #### C BC #### [facility] [address] [place] [address] Dr. Albert Briscoe Platelet mean volume (Bld) [Entitic vol] 10.4 fL Normal 9.5-13.5 [facility] Comment on above: Performed By: #### C BC #### [facility] [address] [place] [address] Dr. Albert Briscoe PLT 228 103/ul Normal 150-450 [facility] Comment on above: Performed By: #### C BC #### [facility] [address] [place] [address] Dr. Albert Briscoe RBC 2.94 106/ul Critically low 4.20-5.40 [facility] [place] Comment on above: Performed By: #### C BC #### [facility] [address] [place] [address] Dr. Albert Briscoe WBC 4.4 103/ul Normal 4.0-11.[address] [facility] Comment on above: Performed By: #### C BC #### [facility] [address] [place] [address] Dr. Albert Briscoe FERRITINon 05-25-2022 Ferritin [Mass/Vol] 353.0 ng/mL Critically high 8.0-252.0 [facility] Comment on above: Performed By: #### B 12FOL, FETIBC, FERR #### [facility] [address] [place] [address] Dr. Albert Briscoe IRON AND TIBCon 05-25-2022 % SATURATION 29.1 % Normal [facility] Comment on above: Performed By: #### B 12FOL, FETIBC, FERR #### [facility] [address] [place] [address] Dr. Albert Briscoe Iron [Mass/Vol] 81.0 ug/dL Normal 50.0-170.0 [facility] [place] Comment on above: Performed By: #### B 12FOL, FETIBC, FERR #### [facility] [address] [place] [address] Dr. Albert Briscoe TIBC DIRECT 278.0 ug/dL Normal 250.0-450.0 [facility] Comment on above: Performed By: #### B 12FOL, FETIBC, FERR #### [facility] [address] [place] [address] Dr. Albert Briscoe RETICULOCYTEon 05-25-2022 RETIC 3.02 % Normal 0.60-3.[address] [facility] Comment on above: Performed By: #### C BC #### [facility] [address] [address] [address] Albert Briscoe VIT B12 AND FOLATEon 022 Cobalamin (Vitamin B12) [Mass/Vol] 3512.0 pg/mL Critically high 193.0-986.0 [facility] Comment on above: Performed By: #### B 12FOL, FETIBC, FERR #### [facility] [address] [address] [address] Albert Briscoe FOLATE 8.20 ng/mL Critically low 8.60-58.90 [facility] Comment on above: Performed By: #### B 12FOL, FETIBC, FERR #### [facility] [address] [address] [address] Albert Briscoe Albumin [Mass/volume] in Ser um or PlasmaOrdered By: Bell Camargo on 04-30-2022 Albumin [Mass/Vol] 3.6 g/dL 3.2-5.5 [facility] Basophils Auto (Bld) [#/Vol] Ordered By: Bell Camargo on 04-30-2022 Basophils (Bld) [#/Vol] 0.1 10*3/uL 0.0-0.2 [facility] Basophils/100 WBC Auto (Bld) Ordered By: Bell Camargo on 04-30-2022 Basophils/100 WBC (Bld) 1.8 % . [facility] Blood hemoglobin measurement (mass/volume)Ordered By: Bell Camargo on 04-30-2022 Hemoglobin (Bld) [Mass/Vol] 7.4 g/dL 11.8-15.4 [facility] Blood leukocytes automated c ount (number/volume)Ordered By: Bell Camargo on 04-30-2022 WBC (Bld) [#/Vol] 3.4 10*3/uL 4.5-11.[address] [facility] CT biopsyOrdered By: Bell Reynolds se on 04-30-2022 Transferrin [Mass/Vol] 246 mg/dL 180-380 [facility] Creatinine and Glomerular fi ltration rate.predicted panel (S/P/Bld)Ordered By: Bell Camargo on 04-30-2022 Creatinine [Mass/Vol] 2.16 mg/dL 0.44-1.03 [facility] Eosinophils Auto (Bld) [#/Vo l]Ordered By: Bell Camargo on 04-30-2022 Eosinophils (Bld) [#/Vol] 0.4 10*3/uL 0.0-0.45 [facility] Eosinophils/100 WBC Auto (Bl d)Ordered By: Bell Camargo on 04-30-2022 Eosinophils/100 WBC (Bld) 11.9 % . [facility] [facility] [place] Erythrocyte distribution wid th Auto (RBC) [Ratio]Ordered By: Bell Camargo on 04-30-2022 Erythrocyte distribution width (RBC) [Ratio] 17.0 % 11.9-15.3 [facility] [place] Estimated glomerular filtrat ion rate (GFR) non- AmericanOrdered By: Bell Camargo on 04-30-2022 GFR/1.73 sq M.predicted among non-blacks MDRD (S/P/Bld) [Vol rate/Area] 22 mL/Min [facility] [place] Ferritin [Mass/volume] in Se rum or PlasmaOrdered By: Bell Camargo on 04-30-2022 Ferritin [Mass/Vol] 54.9 ng/mL 11-306.8 [facility] Globulin Calc (S) [Mass/Vol] Ordered By: Bell Camargo on 04-30-2022 Globulin (S) [Mass/Vol] 2.5 g/dL [facility] Hematocrit Auto (Bld) [Volum e fraction]Ordered By: Bell Camargo on 04-30-2022 Hematocrit (Bld) [Volume fraction] 23.2 % 34.0-46.4 [facility] [place] Iron [Mass/volume] in Serum or PlasmaOrdered By: Bell Camargo on 04-30-2022 Iron [Mass/Vol] 65 ug/dL 40-150 [facility] [place] Iron binding capacity [Mass/ volume] in Serum or PlasmaOrdered By: Bell Camargo on 09-08-2022 Iron binding capacity [Mass/Vol] 344 ug/dL 255-450 [facility] [place] Iron saturation [Mass Fracti on] in Serum or PlasmaOrdered By: Bell Camargo on 04-30-2022 Iron saturation [Mass fraction] 18.0 % 20-50 [facility] [place] Laboratory - Hematology and Cell countsOrdered By: Bell Camargo on 04-30-2022 Nucleated RBC/100 WBC (Bld) [Ratio] 0.1 % 0-0.5 [facility] [place] Lymphocytes Auto (Bld) [#/Vo l]Ordered By: Bell Camargo on 04-30-2022 Lymphocytes (Bld) [#/Vol] 1.0 10*3/uL 1.00-4.8 [facility] [place] Lymphocytes/100 WBC Auto (Bl d)Ordered By: Bell Camargo on 04-30-2022 Lymphocytes/100 WBC (Bld) 29.7 % . [facility] [place] MCH Auto (RBC) [Entitic mass ]Ordered By: Bell Camargo on 04-30-2022 MCH (RBC) [Entitic mass] 31.6 pg 24.7-34.3 [facility] [place] MCHC Auto (RBC) [Mass/Vol]Or dered By: Bell Camargo on 04-30-2022 MCHC (RBC) [Mass/Vol] 32.1 g/dL 32.0-35.0 [facility] MCV Auto (RBC) [Entitic vol] Ordered By: Bell Camargo on 04-30-2022 MCV (RBC) [Entitic vol] 98.5 fL 80-100 [facility] Monocytes Auto (Bld) [#/Vol] Ordered By: Bell Camargo on 04-30-2022 Monocytes (Bld) [#/Vol] 0.2 10*3/uL 0.0-0.8 [facility] [place] Monocytes/100 WBC Auto (Bld) Ordered By: Bell Camargo on 04-30-2022 Monocytes/100 WBC (Bld) 7.3 % . [facility] Neutrophils Auto (Bld) [#/Vo l]Ordered By: Bell Camargo on 04-30-2022 Neutrophils (Bld) [#/Vol] 1.7 10*3/uL 1.8-7.7 [facility] [place] Neutrophils/100 WBC Auto (Bl d)Ordered By: Bell Camargo on 04-30-2022 Neutrophils/100 WBC (Bld) 49.3 % . [facility] [place] No Panel InformationOrdered By: Bell Camargo on 04-30-2022 Estimated GFR () 27 mL/Min [facility] [place] Comment on above: GFR estimated refere nce range: According to KDOQI guidelines, <60 ml/min/1.73m2 is sufficient to diagnose a patient with chronic kidney disease. Pharmacy Creatinine Clearance (Chem 21.95 [facility] [place] Platelet mean volume Auto (B ld) [Entitic vol]Ordered By: Bell Camargo on 04-30-2022 Platelet mean volume (Bld) [Entitic vol] 8.1 fL 6.3-10.7 [facility] [place] Platelets Auto (Bld) [#/Vol] Ordered By: Bell Camargo on 04-30-2022 Platelets (Bld) [#/Vol] 332 10*3/uL 150-450 [facility] [place] Protein [Mass/volume] in Ser um or PlasmaOrdered By: Bell Camargo on 04-30-2022 Protein [Mass/Vol] 6.1 g/dL 6.1-7.9 [facility] RBC Auto (Bld) [#/Vol]Ordere d By: Bell Camargo on 04-30-2022 RBC (Bld) [#/Vol] 2.36 10*6/uL 3.60-5.00 [facility] Serum or plasma alanine moore otransferase measurement without P-5'-P (enzymatic activiOrdered By: Bell Camargo on 04-30-2022 ALT No additional P-5'-P [Catalytic activity/Vol] 10 U/L 10-60 [facility] [place] Serum or plasma albumin/glob ulin mass ratioOrdered By: Bell Camargo on 04-30-2022 Albumin/Globulin [Mass ratio] 1.4 {ratio} [facility] [place] Serum or plasma alkaline akshat sphatase measurement (enzymatic activity/volume)Ordered By: Bell Camargo on 04-30-2022 ALP [Catalytic activity/Vol] 57 U/L 32-92 [facility] [place] Serum or plasma anion gap de terminationOrdered By: Bell Camargo on 04-30-2022 Anion gap [Moles/Vol] 16.0 mmol/L 6.0-15.0 [facility] Serum or plasma aspartate am inotransferase measurement (enzymatic activity/volume)Ordered By: Bell Camargo on 04-30-2022 AST [Catalytic activity/Vol] 17 U/L 10-42 [facility] [place] Serum or plasma calcium ej urement (mass/volume)Ordered By: Bell Camargo on 04-30-2022 Calcium [Mass/Vol] 8.9 mg/dL 8.2-10.2 [facility] Serum or plasma chloride mak surement (moles/volume)Ordered By: Bell Camargo on 04-30-2022 Chloride [Moles/Vol] 100 mmol/L 95-114 [facility] [place] Serum or plasma glucose ej urement (mass/volume)Ordered By: Bell Camargo on 04-30-2022 Glucose [Mass/Vol] 98 mg/dL 70-100 [facility] Comment on above: ADA recommended refe rence rangeRandom Glucose Reference Range is dependent on time and content of last meal. Glucose of more than 200 mg/dL in a nonstressed, ambulatory subject supports the diagnosis of Diabetes Mellitus. Serum or plasma potassium me asurement (moles/volume)Ordered By: Bell Camargo on 04-30-2022 Potassium [Moles/Vol] 4.7 mmol/L 3.5-5.1 [facility] Serum or plasma sodium measu rement (moles/volume)Ordered By: Bell Camargo on 04-30-2022 Sodium [Moles/Vol] 139 mmol/L 136-146 [facility] Serum or plasma total biliru bin measurement (mass/volume)Ordered By: Bell Camargo on 04-30-2022 Bilirubin [Mass/Vol] 0.7 mg/dL 0.3-1.2 [facility] [place] Serum or plasma total carbon dioxide measurement (moles/volume)Ordered By: Bell Camargo on 04-30-2022 CO2 [Moles/Vol] 27.7 mmol/L 22.0-30.0 [facility] Serum or plasma urea nitroge n measurement (mass/volume)Ordered By: Bell Camargo on 04-30-2022 Urea nitrogen [Mass/Vol] 43 mg/dL 9-23 [facility] [place] Basophil percentageOrdered B y: Bell Camargo on 04-17-2022 Eosinophils/100 WBC (Bld) 5 % High 1-3 [facility] [place] Basophils Auto (Bld) [#/Vol] Ordered By: Bell Camargo on 04-17-2022 Basophils (Bld) [#/Vol] N/A [facility] Basophils/100 WBC Auto (Bld) Ordered By: Bell Camargo on 04-17-2022 Basophils/100 WBC (Bld) N/A [facility] Blood anisocytosis detection Ordered By: Bell Camargo on 04-17-2022 Anisocytosis Ql (Bld) Slight [facility] Blood hemoglobin measurement (mass/volume)Ordered By: Bell Camargo on 04-17-2022 Hemoglobin (Bld) [Mass/Vol] 7.6 g/dL 11.8-15.4 [facility] [place] Blood leukocytes automated c ount (number/volume)Ordered By: Bell Camargo on 04-17-2022 WBC (Bld) [#/Vol] 5.8 10*3/uL 4.5-11.[address] [facility] [address] biopsyOrdered By: Bell Reynolds se on 04-17-2022 Transferrin [Mass/Vol] 234 mg/dL 180-380 [facility] Eosinophils Auto (Bld) [#/Vo l]Ordered By: Bell Camargo on 04-17-2022 Eosinophils (Bld) [#/Vol] N/A [facility] [place] Eosinophils/100 WBC Auto (Bl d)Ordered By: Bell Camargo on 04-17-2022 Eosinophils/100 WBC (Bld) N/A [facility] [place] Erythrocyte distribution wid th Auto (RBC) [Ratio]Ordered By: Bell Camargo on 04-17-2022 Erythrocyte distribution width (RBC) [Ratio] 16.2 % 11.9-15.3 [facility] [place] Ferritin [Mass/volume] in Se rum or PlasmaOrdered By: Bell Camargo on 04-17-2022 Ferritin [Mass/Vol] 77.8 ng/mL 11-306.8 [facility] Hematocrit Auto (Bld) [Volum e fraction]Ordered By: Bell Camargo on 04-17-2022 Hematocrit (Bld) [Volume fraction] 23.6 % 34.0-46.4 [facility] [place] Iron [Mass/volume] in Serum or PlasmaOrdered By: Bell Camargo on 04-17-2022 Iron [Mass/Vol] 40 ug/dL 40-150 [facility] [place] Iron binding capacity [Mass/ volume] in Serum or PlasmaOrdered By: Bell Camargo on 04-17-2022 Iron binding capacity [Mass/Vol] 328 ug/dL 255-450 [facility] [place] Iron saturation [Mass Fracti on] in Serum or PlasmaOrdered By: Bell Camargo on 04-17-2022 Iron saturation [Mass fraction] 12.0 % 20-50 [facility] [place] Laboratory - Hematology and Cell countsOrdered By: Bell Camargo on 04-17-2022 Nucleated RBC/100 WBC (Bld) [Ratio] 0.2 % 0-0.5 [facility] [place] Lymphocytes Auto (Bld) [#/Vo l]Ordered By: Bell Camargo on 04-17-2022 Lymphocytes (Bld) [#/Vol] N/A [facility] [place] Lymphocytes/100 WBC Auto (Bl d)Ordered By: Bell Camargo on 04-17-2022 Lymphocytes/100 WBC (Bld) N/A [facility] [place] Lymphocytes/100 WBC (Bld) 19 % 18-42 [facility] [place] MCH Auto (RBC) [Entitic mass ]Ordered By: Bell Camargo on 04-17-2022 MCH (RBC) [Entitic mass] 33.1 pg 24.7-34.3 [facility] [place] MCHC Auto (RBC) [Mass/Vol]Or dered By: Bell Camargo on 04-17-2022 MCHC (RBC) [Mass/Vol] 32.4 g/dL 32.0-35.0 [facility] MCV Auto (RBC) [Entitic vol] Ordered By: Bell Camargo on 04-17-2022 MCV (RBC) [Entitic vol] 102.3 fL 80-100 [facility] Macrocytes detectionOrdered By: Bell Camargo on 04-17-2022 Macrocytes Ql (Bld) Slight [facility] Metamyelocytes/100 WBC Manua l cnt (Bld)Ordered By: Bell Camargo on 04-17-2022 Metamyelocytes/100 WBC (Bld) 2 % High 0-0 [facility] [place] Monocyte %Ordered By: Bell clarke on 04-17-2022 Monocytes/100 WBC (Bld) 5 % 1-3 [facility] Monocytes Auto (Bld) [#/Vol] Ordered By: Bell Camargo on 04-17-2022 Monocytes (Bld) [#/Vol] N/A [facility] Monocytes/100 WBC Auto (Bld) Ordered By: Bell Camargo on 04-17-2022 Monocytes/100 WBC (Bld) N/A [facility] Monocytes/100 WBC Manual cnt (Bld)Ordered By: Bell Camargo on 04-17-2022 Monocytes/100 WBC (Bld) 12 % High 2-11 [facility] Myelocytes/100 WBC Manual cn t (Bld)Ordered By: Bell Camargo on 04-17-2022 Myelocytes/100 WBC (Bld) 2 % High 0-0 [facility] [place] Neutrophils Auto (Bld) [#/Vo l]Ordered By: Bell Camargo on 04-17-2022 Neutrophils (Bld) [#/Vol] N/A [facility] [place] Neutrophils/100 WBC Auto (Bl d)Ordered By: Bell Camargo on 04-17-2022 Neutrophils/100 WBC (Bld) N/A [facility] [place] No Panel InformationOrdered By: Bell Camargo on 04-17-2022 Platelet Estimate Normal Normal [facility] Platelet Morphology Comment Normal Normal [facility] [place] Platelet mean volume Auto (B ld) [Entitic vol]Ordered By: Bell Camargo on 04-17-2022 Platelet mean volume (Bld) [Entitic vol] 8.3 fL 6.3-10.7 [facility] [place] Platelets Auto (Bld) [#/Vol] Ordered By: Bell Camargo on 04-17-2022 Platelets (Bld) [#/Vol] 339 10*3/uL 150-450 [facility] [place] RBC Auto (Bld) [#/Vol]Ordere d By: Bell Camargo on 04-17-2022 RBC (Bld) [#/Vol] 2.30 10*6/uL 3.60-5.00 [facility] RBC morphologyOrdered By: Aida Camargo on 04-17-2022 RBC morphology finding Nom (Bld) N/A [facility] [place] Segmented neutrophils/100 WB C Manual cnt (Bld)Ordered By: Bell Camargo on 04-17-2022 Segmented neutrophils/100 WBC (Bld) 60 % 50-70 [facility] [place] CBC AUTO DIFFon 04-16-2022 BASO # 0.1 103/ul Normal 0.0-0.1 [facility] Comment on above: Performed By: #### B 12FOL, FETIBC, FERR #### [facility] [address] [place] [address] Dr. Albert Briscoe Basophils/100 WBC (Bld) 1.5 % Normal 0.2-2.0 [facility] Comment on above: Performed By: #### B 12FOL, FETIBC, FERR #### [facility] [address] [place] [address] Dr. Albert Briscoe EO # 0.4 103/ul Normal 0.0-0.7 [facility] Comment on above: Performed By: #### B 12FOL, FETIBC, FERR #### [facility] [address] [place] [address] Dr. Albert Briscoe Eosinophils/100 WBC (Bld) 6.1 % Normal 0.9-7.0 [facility] Comment on above: Performed By: #### B 12FOL, FETIBC, FERR #### [facility] [address] [place] [address] Dr. Albert Briscoe Erythrocyte distribution width (RBC) [Ratio] 14.9 % Normal 11.0-15.0 [facility] Comment on above: Performed By: #### B 12FOL, FETIBC, FERR #### [facility] [address] [place] [address] Dr. Albert Briscoe Hematocrit (Bld) [Volume fraction] 22.1 % Critically low 36.0-48.0 [facility] Comment on above: Performed By: #### B 12FOL, FETIBC, FERR #### [facility] [address] [place] [address] Dr. Albert Briscoe Hemoglobin (Bld) [Mass/Vol] 6.8 g/dL Critically low 12.0-16.0 [facility] Comment on above: Performed By: #### B 12FOL, FETIBC, FERR #### [facility] [address] [place] [address] Dr. Albert Briscoe IG # 0.17 10e3/ul Critically high 0.00-0.03 [facility] Comment on above: Performed By: #### B 12FOL, FETIBC, FERR #### [facility] [address] [place] [address] Dr. Albert Briscoe IG % 2.8 % Critically high 0.0-0.5 [facility] Comment on above: Performed By: #### B 12FOL, FETIBC, FERR #### [facility] [address] [place] [address] Dr. Albert Briscoe LYMPH # 1.6 103/ul Normal 1.2-3.[address] [facility] Comment on above: Performed By: #### B 12FOL, FETIBC, FERR #### [facility] [address] [place] [address] Dr. Albert Briscoe Lymphocytes/100 WBC (Bld) 25.7 % Normal 20.5-60.0 [facility] Comment on above: Performed By: #### B 12FOL, FETIBC, FERR #### [facility] [address] [place] [address] Dr. Albert Briscoe MANUAL DIFF REQ NO Normal [facility] [place] Comment on above: Performed By: #### B 12FOL, FETIBC, FERR #### [facility] [address] [place] [address] Dr. Albert Briscoe MCH (RBC) [Entitic mass] 33.2 pg Normal 26.7-34.0 [facility] Comment on above: Performed By: #### B 12FOL, FETIBC, FERR #### [facility] [address] [place] [address] Dr. Albert Briscoe MCHC (RBC) [Mass/Vol] 30.8 g/dL Normal 29.9-35.2 [facility] Comment on above: Performed By: #### B 12FOL, FETIBC, FERR #### [facility] [address] [place] [address] Dr. Albert Briscoe MCV (RBC) [Entitic vol] 107.8 fL Critically high 81.0-99 .0 [facility] Comment on above: Performed By: #### B 12FOL, FETIBC, FERR #### [facility] [address] [place] [address] Dr. Albert Briscoe MONO # 0.6 103/ul Normal 0.3-0.8 [facility] Comment on above: Performed By: #### B 12FOL, FETIBC, FERR #### [facility] [address] [place] [address] Dr. Albert Briscoe Monocytes/100 WBC (Bld) 9.4 % Normal 1.7-12.0 [facility] Comment on above: Performed By: #### B 12FOL, FETIBC, FERR #### [facility] [address] [place] [address] Dr. Albert Briscoe NEUT # 3.3 103/ul Normal 1.4-6.5 [facility] Comment on above: Performed By: #### B 12FOL, FETIBC, FERR #### [facility] [address] [place] [address] Dr. Albert Briscoe Neutrophils/100 WBC (Bld) 54.5 % Normal 43.0-75.[address] [facility] Comment on above: Performed By: #### B 12FOL, FETIBC, FERR #### [facility] [address] [place] [address] Dr. Albert Briscoe Platelet mean volume (Bld) [Entitic vol] 10.3 fL Normal 9.5-13.5 [facility] Comment on above: Performed By: #### B 12FOL, FETIBC, FERR #### [facility] [address] [place] [address] Dr. Albert Briscoe PLT 336 103/ul Normal 150-450 [facility] Comment on above: Performed By: #### B 12FOL, FETIBC, FERR #### [facility] [address] [place] [address] Dr. Albert Briscoe RBC 2.05 106/ul Critically low 4.20-5.40 [facility] Comment on above: Result Comment: Hypo chromasia 2+ Macrocytosis 2+ Performed By: #### B 12FOL, FETIBC, FERR #### [facility] [address] [place] [address] Dr. Albert Briscoe WBC 6.1 103/ul Normal 4.0-11.0 [facility] Comment on above: Performed By: #### B 12FOL, FETIBC, FERR #### [facility] [address] [place] [address] Dr. Albert Briscoe PROF 14(COMP METB)on 022 Albumin [Mass/Vol] 3.5 g/dL Normal 3.4-5.0 [facility] Comment on above: Performed By: #### C BC #### [facility] [address] [place] [address] Dr. Albert Briscoe Albumin/Globulin [Mass ratio] 1.2 {ratio} Normal [facility] Comment on above: Performed By: #### C BC #### [facility] [address] [place] [address] Dr. Albert Briscoe ALP [Catalytic activity/Vol] 63 U/L Normal 46-116 [facility] Comment on above: Performed By: #### C BC #### [facility] [address] [place] [address] Dr. Albert Briscoe ALT [Catalytic activity/Vol] 19 U/L Normal 14-59 [facility] Comment on above: Performed By: #### C BC #### [facility] [address] [place] [address] Dr. Albert Briscoe Anion gap [Moles/Vol] 12.8 mmol/L Normal [facility] Comment on above: Performed By: #### C BC #### [facility] [address] [address] [address] Albert Briscoe AST [Catalytic activity/Vol] 21 U/L Normal 15-37 [facility] Comment on above: Performed By: #### C BC #### [facility] [address] [address] [address] Albert Briscoe Bilirubin [Mass/Vol] 0.2 mg/dL Normal 0.2-1.0 [facility] Comment on above: Performed By: #### C BC #### [facility] [address] [address] [address] Albert Briscoe Calcium [Mass/Vol] 8.3 mg/dL Critically low 8.5-10.1 [facility] Comment on above: Performed By: #### C BC #### [facility] [address] [place] [address] Dr. Albert Briscoe Chloride [Moles/Vol] 101 mmol/L Normal 98-107 [facility] Comment on above: Performed By: #### C BC #### [facility] [address] [address] [address] Albert Briscoe CO2 [Moles/Vol] 28.8 mmol/L Normal 21.0-32.0 [facility] Comment on above: Performed By: #### C BC #### [facility] [address] [place] [address] Dr. Albert Briscoe Creatinine [Mass/Vol] 1.95 mg/dL Critically high 0.55-1.02 [facility] Comment on above: Performed By: #### C BC #### [facility] [address] [address] [address] Albert Briscoe EGFR-AF TURKISH 30 mL/min/1.73m2 Critically low >=60 [facility] Comment on above: Performed By: #### C BC #### [facility] [address] [address] [address] Albert Briscoe EGFR-NON AF TURKISH 25 mL/min/1.73m2 Critically low >=60 [facility] Comment on above: Performed By: #### C BC #### [facility] [address] [address] [address] Albert Briscoe Globulin (S) [Mass/Vol] 3.0 g/dL Normal T [facility] Comment on above: Performed By: #### C BC #### [facility] [address] [address] [address] Albert Briscoe Glucose [Mass/Vol] 89 mg/dL Normal 74-106 [facility] Comment on above: Performed By: #### C BC #### [facility] [address] [place] [address] Dr. Albret Briscoe Potassium [Moles/Vol] 4.6 mmol/L Normal 3.5-5.1 [facility] Comment on above: Performed By: #### C BC #### [facility] [address] [place] [address] Dr. Albert Briscoe Protein [Mass/Vol] 6.5 g/dL Normal 6.4-8.2 [facility] Comment on above: Performed By: #### C BC #### [facility] [address] [place] [address] Dr. Albert Briscoe Sodium [Moles/Vol] 138 mmol/L Normal 136-145 [facility] Comment on above: Performed By: #### C BC #### [facility] [address] [place] [address] Dr. Albert Briscoe Urea nitrogen [Mass/Vol] 52.0 mg/dL Critically high 7.0-18.0 [facility] Comment on above: Performed By: #### C BC #### [facility] [address] [place] [address] Dr. Albert Brisoce Urea nitrogen/Creatinine [Mass ratio] 26.7 mg/mg Normal [facility] Comment on above: Performed By: #### C BC #### [facility] [address] [place] [address] Dr. Albert Briscoe CBC AUTO DIFFon 04-09-2022 BASO # 0.0 103/ul Normal 0.0-0.1 [facility] Comment on above: Performed By: #### C BC #### [facility] [address] [address] [address] Albert Briscoe Basophils/100 WBC (Bld) 0.8 % Normal 0.2-2.0 [facility] Comment on above: Performed By: #### C BC #### [facility] [address] [address] [address] Albert Briscoe EO # 0.4 103/ul Normal 0.0-0.7 [facility] Comment on above: Performed By: #### C BC #### [facility] [address] [address] [address] Albert Briscoe Eosinophils/100 WBC (Bld) 7.4 % Critically high 0.9-7.0 [facility] Comment on above: Performed By: #### C BC #### [facility] [address] [place] [address] Dr. Albert Briscoe Erythrocyte distribution width (RBC) [Ratio] 15.6 % Critically high 11.0-15.0 [facility] Comment on above: Performed By: #### C BC #### [facility] [address] [place] [address] Dr. Albert Briscoe Hematocrit (Bld) [Volume fraction] 24.0 % Critically low 36.0-48.0 [facility] Comment on above: Performed By: #### C BC #### [facility] [address] [place] [address] Dr. Albert Briscoe Hemoglobin (Bld) [Mass/Vol] 7.4 g/dL Critically low 12.0-16.0 [facility] Comment on above: Performed By: #### C BC #### [facility] [address] [place] [address] Dr. Albert Briscoe IG # 0.05 10e3/ul Critically high 0.00-0.03 [facility] Comment on above: Performed By: #### C BC #### [facility] [address] [place] [address] Dr. Albert Briscoe IG % 1.0 % Critically high 0.0-0.5 [facility] Comment on above: Performed By: #### C BC #### [facility] [address] [address] [address] Albert Briscoe LYMPH # 1.2 103/ul Normal 1.2-3.8 [facility] Comment on above: Performed By: #### C BC #### [facility] [address] [address] [address] Albert Briscoe Lymphocytes/100 WBC (Bld) 23.9 % Normal 20.5-60.0 [facility] Comment on above: Performed By: #### C BC #### [facility] [address] [place] [address] Dr. Albert Briscoe MANUAL DIFF REQ NO Normal [facility] Comment on above: Performed By: #### C BC #### [facility] [address] [place] [address] Dr. Albert Briscoe MCH (RBC) [Entitic mass] 32.7 pg Normal 26.7-34.0 [facility] Comment on above: Performed By: #### C BC #### [facility] [address] [place] [address] Dr. Albert Briscoe MCHC (RBC) [Mass/Vol] 30.8 g/dL Normal 29.9-35.2 [facility] Comment on above: Performed By: #### C BC #### [facility] [address] [place] [address] Dr. Albert Briscoe MCV (RBC) [Entitic vol] 106.2 fL Critically high 81.0-99 .0 [facility] Comment on above: Performed By: #### C BC #### [facility] [address] [place] [address] Dr. Albert Briscoe MONO # 0.4 103/ul Normal 0.3-0.8 [facility] Comment on above: Performed By: #### C BC #### [facility] [address] [place] [address] Dr. Albert Briscoe Monocytes/100 WBC (Bld) 8.2 % Normal 1.7-12.0 [facility] Comment on above: Performed By: #### C BC #### [facility] [address] [address] [address] Albert Briscoe NEUT # 2.8 103/ul Normal 1.4-6.[address] [facility] Comment on above: Performed By: #### C BC #### [facility] [address] [place] [address] Dr. Albert Briscoe Neutrophils/100 WBC (Bld) 58.7 % Normal 43.0-75.[address] [facility] Comment on above: Performed By: #### C BC #### [facility] [address] [place] [address] Dr. Albert Briscoe Platelet mean volume (Bld) [Entitic vol] 10.3 fL Normal 9.5-13.[address] [facility] Comment on above: Performed By: #### C BC #### [facility] [address] [place] [address] Dr. Albert Briscoe PLT 279 103/ul Normal 150-[address] [facility] Comment on above: Performed By: #### C BC #### [facility] [address] [place] [address] Dr. Albert Briscoe RBC 2.26 106/ul Critically low 4.20-5.40 [facility] [place] Comment on above: Performed By: #### C BC #### [facility] [address] [place] [address] Dr. Albert Briscoe WBC 4.9 103/ul Normal 4.0-11.[address] [facility] Comment on above: Performed By: #### C BC #### [facility] [address] [place] [address] Dr. Albert Briscoe FERRITINon 04-09-2022 Ferritin [Mass/Vol] 170.0 ng/mL Normal 8.0-252.[address] [facility] Comment on above: Performed By: #### B 12FOL, FETIBC, FERR #### [facility] [address] [place] [address] Dr. Albert Briscoe IRON AND TIBCon 04-09-2022 % SATURATION 20.6 % Normal [facility] Comment on above: Performed By: #### B 12FOL, FETIBC, FERR #### [facility] [address] [place] [address] Dr. Albert Briscoe Iron [Mass/Vol] 57.0 ug/dL Normal 50.0-170.0 [facility] Comment on above: Performed By: #### B 12FOL, FETIBC, FERR #### [facility] [address] [place] [address] Dr. Albert Briscoe TIBC DIRECT 277.0 ug/dL Normal 250.0-450.0 [facility] Comment on above: Performed By: #### B 12FOL, FETIBC, FERR #### [facility] [address] [place] [address] Dr. Albert Briscoe CBC AUTO DIFFon 02-27-2022 BASO # 0.0 103/ul Normal 0.0-0.1 [facility] Comment on above: Performed By: #### B 12FOL, FETIBC, FERR #### [facility] [address] [place] [address] Dr. Albert Briscoe Basophils/100 WBC (Bld) 0.4 % Normal 0.2-2.0 [facility] Comment on above: Performed By: #### B 12FOL, FETIBC, FERR #### [facility] [address] [place] [address] Dr. Albert Briscoe EO # 0.0 103/ul Normal 0.0-0.7 [facility] Comment on above: Performed By: #### B 12FOL, FETIBC, FERR #### [facility] [address] [place] [address] Dr. Albert Briscoe Eosinophils/100 WBC (Bld) 0.0 % Critically low 0.9-7.[address] [facility] Comment on above: Performed By: #### B 12FOL, FETIBC, FERR #### [facility] [address] [place] [address] Dr. Albert Briscoe Erythrocyte distribution width (RBC) [Ratio] 14.6 % Normal 11.0-15.0 [facility] Comment on above: Performed By: #### B 12FOL, FETIBC, FERR #### [facility] [address] [place] [address] Dr. Albert Briscoe Hematocrit (Bld) [Volume fraction] 26.1 % Critically low 36.0-48.0 [facility] Comment on above: Performed By: #### B 12FOL, FETIBC, FERR #### [facility] [address] [place] [address] Dr. Albert Briscoe Hemoglobin (Bld) [Mass/Vol] 8.4 g/dL Critically low 12.0-16.[address] [facility] Comment on above: Performed By: #### B 12FOL, FETIBC, FERR #### [facility] [address] [place] [address] Dr. Albert Briscoe IG # 0.49 10e3/ul Critically high 0.00-0.03 [facility] Comment on above: Performed By: #### B 12FOL, FETIBC, FERR #### [facility] [address] [place] [address] Dr. Albert Briscoe IG % 6.1 % Critically high 0.0-0.5 [facility] [place] Comment on above: Performed By: #### B 12FOL, FETIBC, FERR #### [facility] [address] [place] [address] Dr. Albert Briscoe LYMPH # 1.0 103/ul Critically low 1.2-3.8 [facility] Comment on above: Performed By: #### B 12FOL, FETIBC, FERR #### [facility] [address] [place] [address] Dr. Albert Briscoe Lymphocytes/100 WBC (Bld) 11.9 % Critically low 20.5-60.0 [facility] Comment on above: Performed By: #### B 12FOL, FETIBC, FERR #### [facility] [address] [place] [address] Dr. Albert Briscoe MANUAL DIFF REQ NO Normal [facility] [place] Comment on above: Performed By: #### B 12FOL, FETIBC, FERR #### [facility] [address] [place] [address] Dr. Albert Briscoe MCH (RBC) [Entitic mass] 31.1 pg Normal 26.7-34.0 [facility] Comment on above: Performed By: #### B 12FOL, FETIBC, FERR #### [facility] [address] [place] [address] Dr. Albert Briscoe MCHC (RBC) [Mass/Vol] 32.2 g/dL Normal 29.9-35.2 [facility] Comment on above: Performed By: #### B 12FOL, FETIBC, FERR #### [facility] [address] [place] [address] Dr. Albert Briscoe MCV (RBC) [Entitic vol] 96.7 fL Normal 81.0-99.0 [facility] Comment on above: Performed By: #### B 12FOL, FETIBC, FERR #### [facility] [address] [place] [address] Dr. Albert Briscoe MONO # 0.5 103/ul Normal 0.3-0.8 [facility] Comment on above: Performed By: #### B 12FOL, FETIBC, FERR #### [facility] [address] [place] [address] Dr. Albert Briscoe Monocytes/100 WBC (Bld) 6.1 % Normal 1.7-12.0 [facility] Comment on above: Performed By: #### B 12FOL, FETIBC, FERR #### [facility] [address] [place] [address] Dr. Albert Briscoe NEUT # 6.1 103/ul Normal 1.4-6.5 [facility] Comment on above: Performed By: #### B 12FOL, FETIBC, FERR #### [facility] [address] [place] [address] Dr. Albert Briscoe Neutrophils/100 WBC (Bld) 75.5 % Critically high 43.0-75.0 [facility] Comment on above: Performed By: #### B 12FOL, FETIBC, FERR #### [facility] [address] [place], [place] [id number] Dr. Albert Briscoe Platelet mean volume (Bld) [Entitic vol] 10.3 fL Normal 9.5-13.5 [facility] Comment on above: Performed By: #### B 12FOL, FETIBC, FERR #### [facility] [address] [place] [address] Dr. Albert Briscoe PLT 348 103/ul Normal 150-450 [facility] Comment on above: Performed By: #### B 12FOL, FETIBC, FERR #### [facility] [address] [place] [address] Dr. Albert Briscoe RBC 2.70 106/ul Critically low 4.20-5.40 [facility] [place] Comment on above: Performed By: #### B 12FOL, FETIBC, FERR #### [facility] [address] [place] [address] Dr. Albert Briscoe WBC 8.1 103/ul Normal 4.0-11.0 [facility] Comment on above: Performed By: #### B 12FOL, FETIBC, FERR #### [facility] [address] [place] [address] Dr. Albert Briscoe FERRITINon 02-27-2022 Ferritin [Mass/Vol] 56.0 ng/mL Normal 8.0-252.0 [facility] Comment on above: Performed By: #### C BC #### [facility] [address] [place] [address] Dr. Albert Briscoe IRON AND TIBCon 02-27-2022 % SATURATION 24.0 % Normal [facility] Comment on above: Performed By: #### C BC #### [facility] [address] [place] [address] Dr. Albert Briscoe Iron [Mass/Vol] 84.0 ug/dL Normal 50.0-170.0 [facility] [place] Comment on above: Performed By: #### C BC #### [facility] [address] [place] [address] Dr. Albert Briscoe TIBC DIRECT 350.0 ug/dL Normal 250.0-450.0 [facility] [place] Comment on above: Performed By: #### C BC #### [facility] [address] [place] [address] Dr. Albert Briscoe BNPon 02-21-2022 Natriuretic peptide B (Bld) [Mass/Vol] 725.0 pg/mL Normal <=1,800.0 [facility] Comment on above: Performed By: #### B 12FOL, FETIBC, FERR #### [facility] [address] [place] [address] Dr. Albert Briscoe CBC AUTO DIFFon 02-21-2022 BASO # 0.1 103/ul Normal 0.0-0.1 [facility] Comment on above: Performed By: #### C BC #### [facility] [address] [place] [address] Dr. Albert Briscoe Basophils/100 WBC (Bld) 0.5 % Normal 0.2-2.0 [facility] Comment on above: Performed By: #### C BC #### [facility] [address] [place] [address] Dr. Albert Briscoe EO # 0.1 103/ul Normal 0.0-0.7 [facility] Comment on above: Performed By: #### C BC #### [facility] [address] [place] [address] Dr. Albert Briscoe Eosinophils/100 WBC (Bld) 0.8 % Critically low 0.9-7.0 [facility] Comment on above: Performed By: #### C BC #### [facility] [address] [place] [address] Dr. Albert Briscoe Erythrocyte distribution width (RBC) [Ratio] 14.8 % Normal 11.0-15.0 [facility] Comment on above: Performed By: #### C BC #### [facility] [address] [place] [address] Dr. Albert Briscoe Hematocrit (Bld) [Volume fraction] 28.4 % Critically low 36.0-48.0 [facility] Comment on above: Performed By: #### C BC #### [facility] [address] [place] [address] Dr. Albert Briscoe Hemoglobin (Bld) [Mass/Vol] 9.2 g/dL Critically low 12.0-16.0 [facility] Comment on above: Performed By: #### C BC #### [facility] [address] [place] [address] Dr. Albert Briscoe IG # 0.33 10e3/ul Critically high 0.00-0.03 [facility] Comment on above: Performed By: #### C BC #### [facility] [address] [place] [address] Dr. Albert Briscoe IG % 2.0 % Critically high 0.0-0.5 [facility] [place] Comment on above: Performed By: #### C BC #### [facility] [address] [place] [address] Dr. Albert Briscoe LYMPH # 1.2 103/ul Normal 1.2-3.8 [facility] Comment on above: Performed By: #### C BC #### [facility] [address] [place] [address] Dr. Albert Briscoe Lymphocytes/100 WBC (Bld) 7.1 % Critically low 20.5-60.0 [facility] Comment on above: Performed By: #### C BC #### [facility] [address] [place] [address] Dr. Albert Briscoe MANUAL DIFF REQ NO Normal [facility] [place] Comment on above: Performed By: #### C BC #### [facility] [address] [place] [address] Dr. Albert Briscoe MCH (RBC) [Entitic mass] 31.5 pg Normal 26.7-34.[address] [facility] Comment on above: Performed By: #### C BC #### [facility] [address] [place] [address] Dr. Albert Briscoe MCHC (RBC) [Mass/Vol] 32.4 g/dL Normal 29.9-35.[address] [facility] Comment on above: Performed By: #### C BC #### [facility] [address] [place] [address] Dr. Albert Briscoe MCV (RBC) [Entitic vol] 97.3 fL Normal 81.0-99.0 [facility] Comment on above: Performed By: #### C BC #### [facility] [address] [place] [address] Dr. Albert Briscoe MONO # 1.2 103/ul Critically high 0.3-0.8 [facility] Comment on above: Performed By: #### C BC #### [facility] [address] [address] [address] Albert Briscoe Monocytes/100 WBC (Bld) 7.2 % Normal 1.7-12.0 [facility] Comment on above: Performed By: #### C BC #### [facility] [address] [place] [address] Dr. Albert Briscoe NEUT # 13.5 103/ul Critically high 1.4-6.5 [facility] Comment on above: Performed By: #### C BC #### [facility] [address] [place] [address] Dr. Albert Briscoe Neutrophils/100 WBC (Bld) 82.4 % Critically high 43.0-75.0 [facility] Comment on above: Performed By: #### C BC #### [facility] [address] [place] [address] Dr. Albert Briscoe Platelet mean volume (Bld) [Entitic vol] 10.1 fL Normal 9.5-13.5 [facility] Comment on above: Performed By: #### C BC #### [facility] [address] [place] [address] Dr. Albert Briscoe PLT 282 103/ul Normal 150-[address] [facility] Comment on above: Performed By: #### C BC #### [facility] [address] [place] [address] Dr. Albert Briscoe RBC 2.92 106/ul Critically low 4.20-5.40 [facility] Comment on above: Performed By: #### C BC #### [facility] [address] [place] [address] Dr. Albert Briscoe WBC 16.4 103/ul Critically high 4.0-11.0 [facility] Comment on above: Performed By: #### C BC #### [facility] [address] [place] [address] Dr. Albert Briscoe Covid-19 PCR (CVDTB)on SARS-CoV-2 (COVID-19) RNA TRACIE+probe Ql (Unsp spec) Not detected Normal NOT DETECTED [facility] Comment on above: Result Comment: When diagnostic [...] for this test is supported by the [place] of Health and Human Service's declaration that [...] used). Performed By: #### C VDTBH #### [facility] [address] [place] [address] Dr. Albert Briscoe PROF CHEM 8 (BAS METB)on Anion gap [Moles/Vol] 11.0 mmol/L Normal [facility] Comment on above: Performed By: #### B 12FOL, FETIBC, FERR #### [facility] [address] [place] [address] Dr. Albert Briscoe Calcium [Mass/Vol] 8.8 mg/dL Normal 8.5-10.1 [facility] Comment on above: Performed By: #### B 12FOL, FETIBC, FERR #### [facility] [address] [place] [address] Dr. Albert Briscoe Chloride [Moles/Vol] 101 mmol/L Normal 98-107 [facility] Comment on above: Performed By: #### B 12FOL, FETIBC, FERR #### [facility] [address] [place] [address] Dr. Albert Briscoe CO2 [Moles/Vol] 28.6 mmol/L Normal 21.0-32.0 [facility] Comment on above: Performed By: #### B 12FOL, FETIBC, FERR #### [facility] [address] [place] [address] Dr. Albert Briscoe Creatinine [Mass/Vol] 1.65 mg/dL Critically high 0.55-1.02 [facility] Comment on above: Performed By: #### B 12FOL, FETIBC, FERR #### [facility] [address] [place] [address] Dr. Albert Briscoe EGFR-AF TURKISH 37 mL/min/1.73m2 Critically low >=60 [facility] Comment on above: Performed By: #### B 12FOL, FETIBC, FERR #### [facility] [address] [place] [address] Dr. Albert Briscoe EGFR-NON AF TURKISH 30 mL/min/1.73m2 Critically low >=60 [facility] Comment on above: Performed By: #### B 12FOL, FETIBC, FERR #### [facility] [address] [place] [address] Dr. Albert Briscoe Glucose [Mass/Vol] 115 mg/dL Critically high 74-106 [facility] Comment on above: Performed By: #### B 12FOL, FETIBC, FERR #### [facility] [address] [place] [address] Dr. Albert Briscoe Potassium [Moles/Vol] 4.6 mmol/L Normal 3.5-5.1 [facility] Comment on above: Performed By: #### B 12FOL, FETIBC, FERR #### [facility] [address] [place] [address] Dr. Albert Briscoe Sodium [Moles/Vol] 136 mmol/L Normal 136-145 [facility] Comment on above: Performed By: #### B 12FOL, FETIBC, FERR #### [facility] [address] [address] [address] Albert Briscoe Urea nitrogen [Mass/Vol] 48.0 mg/dL Critically high 7.0-18.0 [facility] Comment on above: Performed By: #### B 12FOL, FETIBC, FERR #### [facility] [address] [place] [address] Dr. Albert Briscoe Urea nitrogen/Creatinine [Mass ratio] 29.1 mg/mg Normal [facility] Comment on above: Performed By: #### B 12FOL, FETIBC, FERR #### [facility] [address] [place] [address] Dr. Albert Briscoe TROPONIN, HIGH SENSITIVITYon 02-21-2022 HSTROP 202.4 pg/mL Critically high 4.0-51.3 [facility] Comment on above: Result Comment: CUT- OFF POINTS HAVE BEEN ESTABLISHED BASED ON THE FOURTH UNIVERSAL DEFINITIONS OF MYOCARDIAL INFARCTION. THE UPPER REFERENCE LIMIT (URL) OF TROPONIN, DEFINED THE 99TH PERCENTILE OF cTnI DISTRIBUTION IN A REFERENCE POPULATION, HAS BEEN CONFIRMED THE DECISION THRESHOLD FOR [place] DIAGNOSIS. Performed By: #### B 12FOL, FETIBC, FERR #### [facility] [address] [place] [address] Dr. Albert Briscoe XR CHEST 1 Von [...] osseous change otherwise identified. Electronically authenticated by: [facility] Date: 2022-02-21 10:[address] [facility] CBC AUTO DIFFon 01-30-2022 BASO # 0.1 103/ul Normal 0.0-0.1 [facility] Comment on above: Performed By: #### B 12FOL, FETIBC, FERR #### [facility] [address] [place] [address] Dr. Albert Briscoe Basophils/100 WBC (Bld) 0.9 % Normal 0.2-2.0 [facility] Comment on above: Performed By: #### B 12FOL, FETIBC, FERR #### [facility] [address] [place] [address] Dr. Albert Briscoe EO # 0.4 103/ul Normal 0.0-0.7 [facility] Comment on above: Performed By: #### B 12FOL, FETIBC, FERR #### [facility] [address] [place] [address] Dr. Albert Briscoe Eosinophils/100 WBC (Bld) 6.6 % Normal 0.9-7.0 [facility] Comment on above: Performed By: #### B 12FOL, FETIBC, FERR #### [facility] [address] [place] [address] Dr. Albert Briscoe Erythrocyte distribution width (RBC) [Ratio] 15.6 % Critically high 11.0-15.0 [facility] Comment on above: Performed By: #### B 12FOL, FETIBC, FERR #### [facility] [address] [place] [address] Dr. Albert Briscoe Hematocrit (Bld) [Volume fraction] 31.0 % Critically low 36.0-48.0 [facility] Comment on above: Performed By: #### B 12FOL, FETIBC, FERR #### [facility] [address] [place] [address] Dr. Albert Briscoe Hemoglobin (Bld) [Mass/Vol] 9.6 g/dL Critically low 12.0-16.0 [facility] Comment on above: Performed By: #### B 12FOL, FETIBC, FERR #### [facility] [address] [place] [address] Dr. Albert Briscoe IG # 0.04 10e3/ul Critically high 0.00-0.03 [facility] Comment on above: Performed By: #### B 12FOL, FETIBC, FERR #### [facility] [address] [place] [address] Dr. Albert Briscoe IG % 0.8 % Critically high 0.0-0.5 [facility] Comment on above: Performed By: #### B 12FOL, FETIBC, FERR #### [facility] [address] [place] [address] Dr. Albert Briscoe LYMPH # 1.1 103/ul Critically low 1.2-3.8 [facility] Comment on above: Performed By: #### B 12FOL, FETIBC, FERR #### [facility] [address] [place] [address] Dr. Albert Briscoe Lymphocytes/100 WBC (Bld) 20.8 % Normal 20.5-60.0 [facility] Comment on above: Performed By: #### B 12FOL, FETIBC, FERR #### [facility] [address] [place] [address] Dr. Albert Briscoe MANUAL DIFF REQ NO Normal [facility] Comment on above: Performed By: #### B 12FOL, FETIBC, FERR #### [facility] [address] [place] [address] Dr. Albert Briscoe MCH (RBC) [Entitic mass] 31.2 pg Normal 26.7-34.0 [facility] Comment on above: Performed By: #### B 12FOL, FETIBC, FERR #### [facility] [address] [place] [address] Dr. Albert Briscoe MCHC (RBC) [Mass/Vol] 31.0 g/dL Normal 29.9-35.[address] [facility] Comment on above: Performed By: #### B 12FOL, FETIBC, FERR #### [facility] [address] [place] [address] Dr. Albert Briscoe MCV (RBC) [Entitic vol] 100.6 fL Critically high 81.0-99 .0 [facility] Comment on above: Performed By: #### B 12FOL, FETIBC, FERR #### [facility] [address] [place] [address] Dr. Albert Briscoe MONO # 0.5 103/ul Normal 0.3-0.8 [facility] Comment on above: Performed By: #### B 12FOL, FETIBC, FERR #### [facility] [address] [place] [address] Dr. Albert Briscoe Monocytes/100 WBC (Bld) 8.8 % Normal 1.7-12.0 [facility] Comment on above: Performed By: #### B 12FOL, FETIBC, FERR #### [facility] [address] [place] [address] Dr. Albert Briscoe NEUT # 3.3 103/ul Normal 1.4-6.5 [facility] Comment on above: Performed By: #### B 12FOL, FETIBC, FERR #### [facility] [address] [place] [address] Dr. Albert Briscoe Neutrophils/100 WBC (Bld) 62.1 % Normal 43.0-75.0 [facility] Comment on above: Performed By: #### B 12FOL, FETIBC, FERR #### [facility] [address] [place] [address] Dr. Albert Briscoe Platelet mean volume (Bld) [Entitic vol] 10.4 fL Normal 9.5-13.5 [facility] Comment on above: Performed By: #### B 12FOL, FETIBC, FERR #### [facility] [address] [place] [address] Dr. Albert Briscoe PLT 250 103/ul Normal 150-[address] [facility] Comment on above: Performed By: #### B 12FOL, FETIBC, FERR #### [facility] [address] [place] [address] Dr. Albert Briscoe RBC 3.08 106/ul Critically low 4.20-5.40 [facility] Comment on above: Performed By: #### B 12FOL, FETIBC, FERR #### [facility] [address] [place] [address] Dr. Albert Briscoe WBC 5.3 103/ul Normal 4.0-11.0 [facility] Comment on above: Performed By: #### B 12FOL, FETIBC, FERR #### [facility] [address] [place] [address] Dr. Albert Briscoe CBC AUTO DIFFon 01-01-2022 BASO # 0.1 103/ul Normal 0.0-0.1 [facility] Comment on above: Performed By: #### B 12FOL, FETIBC, FERR #### [facility] [address] [place] [address] Dr. Albert Briscoe Basophils/100 WBC (Bld) 1.7 % Normal 0.2-2.0 [facility] Comment on above: Performed By: #### B 12FOL, FETIBC, FERR #### [facility] [address] [place] [address] Dr. Albert Briscoe EO # 0.5 103/ul Normal 0.0-0.7 [facility] Comment on above: Performed By: #### B 12FOL, FETIBC, FERR #### [facility] [address] [place] [address] Dr. Albert Brisoce Eosinophils/100 WBC (Bld) 11.9 % Critically high 0.9-7.0 [facility] Comment on above: Performed By: #### B 12FOL, FETIBC, FERR #### [facility] [address] [place] [address] Dr. Albert Briscoe Erythrocyte distribution width (RBC) [Ratio] 16.6 % Critically high 11.0-15.0 [facility] Comment on above: Performed By: #### B 12FOL, FETIBC, FERR #### [facility] [address] [place] [address] Dr. Albert Briscoe Hematocrit (Bld) [Volume fraction] 30.5 % Critically low 36.0-48.0 [facility] Comment on above: Performed By: #### B 12FOL, FETIBC, FERR #### [facility] [address] [place], [place] [id number] Dr. Albert Briscoe Hemoglobin (Bld) [Mass/Vol] 9.6 g/dL Critically low 12.0-16.0 [facility] Comment on above: Performed By: #### B 12FOL, FETIBC, FERR #### [facility] [address] [place] [address] Dr. Albert Briscoe IG # 0.03 10e3/ul Normal 0.00-0.[address] [facility] Comment on above: Performed By: #### B 12FOL, FETIBC, FERR #### [facility] [address] [place] [address] Dr. Albert Briscoe IG % 0.7 % Critically high 0.0-0.5 [facility] Comment on above: Performed By: #### B 12FOL, FETIBC, FERR #### [facility] [address] [place] [address] Dr. Albert Briscoe LYMPH # 1.2 103/ul Normal 1.2-3.[address] [facility] Comment on above: Performed By: #### B 12FOL, FETIBC, FERR #### [facility] [address] [place] [address] Dr. Albert Briscoe Lymphocytes/100 WBC (Bld) 29.8 % Normal 20.5-60.0 [facility] Comment on above: Performed By: #### B 12FOL, FETIBC, FERR #### [facility] [address] [place] [address] Dr. Albert Briscoe MANUAL DIFF REQ NO Normal [facility] [place] Comment on above: Performed By: #### B 12FOL, FETIBC, FERR #### [facility] [address] [place] [address] Dr. Albert Briscoe MCH (RBC) [Entitic mass] 30.9 pg Normal 26.7-34.0 [facility] Comment on above: Performed By: #### B 12FOL, FETIBC, FERR #### [facility] [address] [place] [address] Dr. Albert Briscoe MCHC (RBC) [Mass/Vol] 31.5 g/dL Normal 29.9-35.2 [facility] Comment on above: Performed By: #### B 12FOL, FETIBC, FERR #### [facility] [address] [place] [address] Dr. Albert Briscoe MCV (RBC) [Entitic vol] 98.1 fL Normal 81.0-99.0 [facility] Comment on above: Performed By: #### B 12FOL, FETIBC, FERR #### [facility] [address] [place] [address] Dr. Albert Briscoe MONO # 0.4 103/ul Normal 0.3-0.8 [facility] Comment on above: Performed By: #### B 12FOL, FETIBC, FERR #### [facility] [address] [place] [address] Dr. Albert Briscoe Monocytes/100 WBC (Bld) 10.2 % Normal 1.7-12.0 [facility] Comment on above: Performed By: #### B 12FOL, FETIBC, FERR #### [facility] [address] [place] [address] Dr. Albert Briscoe NEUT # 1.8 103/ul Normal 1.4-6.5 [facility] Comment on above: Performed By: #### B 12FOL, FETIBC, FERR #### [facility] [address] [place] [address] Dr. Albert Briscoe Neutrophils/100 WBC (Bld) 45.7 % Normal 43.0-75.0 [facility] Comment on above: Performed By: #### B 12FOL, FETIBC, FERR #### [facility] [address] [place] [address] Dr. Albert Briscoe Platelet mean volume (Bld) [Entitic vol] 10.3 fL Normal 9.5-13.5 [facility] Comment on above: Performed By: #### B 12FOL, FETIBC, FERR #### [facility] [address] [place] [address] Dr. Albert Briscoe PLT 270 103/ul Normal 150-[address] [facility] Comment on above: Performed By: #### B 12FOL, FETIBC, FERR #### [facility] [address] [place], [place] [address] Dr. Albert Briscoe RBC 3.11 106/ul Critically low 4.20-5.40 [facility] Comment on above: Performed By: #### B 12FOL, FETIBC, FERR #### [facility] [address] [place], [place] [address] Dr. Albert Briscoe WBC 4.0 103/ul Normal 4.0-11.0 [facility] Comment on above: Performed By: #### B 12FOL, FETIBC, FERR #### [facility] [address] [place] [place] [id number] [address] Albert Briscoe XR RIBS RT PA [...] by: LOVE COTTON Date: 2021-12-22 11:[address] [facility] CBCon 05-30-2020 Erythrocyte distribution width (RBC) [Ratio] 15.0 % High 11.5 - 14.5 [facility] Comment on above: Performed By: #### C BC #### [address] [id number] Hematocrit (Bld) [Volume fraction] 43.9 % Normal 36.0 - 46.0 [facility] Comment on above: Performed By: #### C BC #### [address] [id number] Hemoglobin (Bld) [Mass/Vol] 13.7 g/dL Normal 12.0 - 16.0 [facility] Comment on above: Performed By: #### C BC #### [address] [id number] MCHC (RBC) [Mass/Vol] 31.2 g/dL Low 32.0 - 36.0 [facility] Comment on above: Performed By: #### C BC #### [address] [id number] MCV (RBC) [Entitic vol] 102 fL High 80 - 100 [facility] Comment on above: Performed By: #### C BC #### [address] [id number] Platelets (Bld) [#/Vol] 254 10*3/uL Normal 150 - 450 [facility] Comment on above: Performed By: #### C BC #### [address] [id number] RBC (Bld) [#/Vol] 4.32 x10E12/L Normal 4.00 - 5.20 [facility] Comment on above: Performed By: #### C BC #### [address] [id number] WBC (Bld) [#/Vol] 5.2 10*3/uL Normal 4.4 - 11.3 [facility] Comment on above: Performed By: #### C BC #### [address] [id number] CREATININEon 05-30-2020 Creatinine [Mass/Vol] 59 mL/min/1.73m2 Abnormal >60 [facility] Comment on above: Performed By: #### C REAT #### [address] [id number] Creatinine [Mass/Vol] 0.93 mg/dL Normal 0.50 - 1.05 [facility] Comment on above: Performed By: #### C REAT #### [address] [id number] Creatinine [Mass/Vol] 71 mL/min/1.73m2 Normal >60 [facility] Comment on above: Result Comment: CALC ULATIONS OF ESTIMATED GFR ARE PERFORMED USING THE MDRD STUDY EQUATION FOR THE IDMS-TRACEABLE CREATININE METHODS. CLIN CHEM 2007;53:766-72 Performed By: #### C REAT #### [address] [id number] ELECTROLYTE PANELon 05-30-20 20 Anion gap [Moles/Vol] 10 mmol/L Normal 10 - 20 [facility] Comment on above: Performed By: #### E LECT #### [address] [id number] Chloride [Moles/Vol] 105 mmol/L Normal 98 - 107 [facility] Comment on above: Performed By: #### E LECT #### [address] [id number] HCO3 (Bld) [Moles/Vol] 28 mmol/L Normal 21 - 32 [facility] Comment on above: Performed By: #### E LECT #### [address] [id number] Potassium [Moles/Vol] 4.2 mmol/L Normal 3.5 - 5.3 [facility] Comment on above: Performed By: #### E LECT #### [address] [id number] Sodium [Moles/Vol] 139 mmol/L Normal 136 - 145 [facility] Comment on above: Performed By: #### E LECT #### [address] [id number] TSHon 05-30-2020 TSH Qn 8.01 m[IU]/L High 0.44 - 3.98 [facility] [place] Comment on above: Result Comment: TSH testing is performed using different testing methodology at [facility] than at other [facility]. Direct result comparisons should only be made within the same method. Performed By: #### T SH2 #### [address] [id number] UREA NITROGENon 05-30-2020 Urea nitrogen [Mass/Vol] 22 mg/dL Normal 6 - 23 [facility] Comment on above: Performed By: #### U TRINI #### [address] [id number] [facility] CARDIAC STRESS/REST INJE CTIONon 06-30-2019 [facility] CARDIAC STRESS/REST INJECTION Patient Name: TERRI NEWTON STUDY: MYOCARDIAL PERFUSION STRESS TEST WITH LEXISCAN Performing facility: [facility], [address], [address], [place] [address] [facility] Provider: Kat LOZADA NP PCP: Dr. Ceci DUNN Supervising provider: CARLO BRO INDICATION: Abnormal EKG; FATIGUE HISTORY: Gender: F; Age: 74 y/o ; Height: 162.56 cm; Weight: 72.5165281 kg. HTN PALPITATIONS COPD FATIGUE Family HX CAD; Currently smoking. COMPARISON: ACCESSION NUMBER(S): [id number] ORDERING CLINICIAN: LAURA LOZADA TECHNIQUE: ONE DAY [...] comparison. Electronically signed by: KYRA YEPEZ MD [facility] Vital Signs Date Time Vital Sign Value Performing Clinician Facility 08-07-2024 [id number] Body height 162.6 cm Jayy Lomas MD Work Phone: [facility] 08-07-2024 13:11-0500 Body mass index (BMI) [Ratio] 23.69 kg/m2 Jayy Lomas MD Work Phone: [facility] 08-07-2024 13:11-0500 Body temperature 97.9 [degF] Jayy Lomas MD Work Phone: [facility] 08-07-2024 13:11-0500 Body weight 62.6 kg Jayy Lomas MD Work Phone: [facility] 08-07-2024 13:11-0500 Diastolic blood pressure 64 mm[Hg] Jayy Lomas MD Work Phone: [facility] 08-07-2024 13:11-0500 Heart rate 66 /min Jayy Lomas MD Work Phone: [facility] 08-07-2024 13:11-0500 SaO2% (BldA) [Mass fraction] 95 % Jayy Lomas MD Work Phone: [facility] 08-07-2024 13:11-0500 Systolic blood pressure 126 mm[Hg] Jayy Lomas MD Work Phone: [facility] 07-03-2024 08:25-0500 Body height 162.6 cm Jayy Lomas MD Work Phone: [facility] 07-03-2024 08:25-0500 Body mass index (BMI) [Ratio] 23.69 kg/m2 Jayy Lomas MD Work Phone: [facility] 07-03-2024 08:25-0500 Body weight 62.6 kg Jayy Lomas MD Work Phone: [facility] 07-03-2024 08:25-0500 Diastolic blood pressure 66 mm[Hg] Jayy Lomas MD Work Phone: [facility] 07-03-2024 08:25-0500 Heart rate 52 /min Jayy Lomas MD Work Phone: [facility] 07-03-2024 08:25-0500 SaO2% (BldA) [Mass fraction] 94 % Jayy Lomas MD Work Phone: [facility] 07-03-2024 08:25-0500 Systolic blood pressure 122 mm[Hg] Jayy Lomas MD Work Phone: [facility] 05-11-2024 09:52-0400 Body height 162.56 cm MD Jarrell Granados Work Phone: [facility] [place] 05-11-2024 09:52-0400 Body mass index (BMI) [Ratio] 23.1 kg/m2 MD Jarrell Granados Work Phone: [facility] [place] 05-11-2024 09:52-0400 Body temperature 97.2 [degF] MD Jarrell Granados Work Phone: [facility] [place] 05-11-2024 09:52-0400 Body weight 61.23 kg MD Jarrell Granados Work Phone: [facility] [place] 05-11-2024 09:52-0400 Diastolic blood pressure 64 mm[Hg] MD Jarrell Granados Work Phone: [facility] [place] 05-11-2024 09:52-0400 Heart rate 62 /min MD Jarrell Granados Work Phone: [facility] [place] 05-11-2024 09:52-0400 Respiratory rate 16 /min MD Jarrell Granados Work Phone: [facility] [place] 05-11-2024 09:52-0400 SaO2% (BldA) [Mass fraction] 100 % MD Jarrell Granados Work Phone: [facility] [place] 05-11-2024 09:52-0400 Systolic blood pressure 148 mm[Hg] MD Jarrell Granados Work Phone: [facility] [place] 01-07-2024 09:10-0400 Body height 162.56 cm MD Jarrell Granados Work Phone: [facility] [place] 01-07-2024 09:10-0400 Body mass index (BMI) [Ratio] 24 kg/m2 MD Jarrell Granados Work Phone: [facility] [place] 01-07-2024 09:10-0400 Body temperature 98.1 [degF] MD Jarrell Granados Work Phone: [facility] [place] 01-07-2024 09:10-0400 Body weight 63.5 kg MD Jarrell Granados Work Phone: [facility] [place] 01-07-2024 09:10-0400 Diastolic blood pressure 41 mm[Hg] MD Jarrell Granados Work Phone: [facility] [place] 01-07-2024 09:10-0400 Heart rate 64 /min MD Jarrell Granados Work Phone: [facility] [place] 01-07-2024 09:10-0400 Respiratory rate 18 /min MD Jarrell Granados Work Phone: [facility] [place] 01-07-2024 09:10-0400 SaO2% (BldA) [Mass fraction] 98 % MD Jarrell Granados Work Phone: [facility] [place] 01-07-2024 09:10-0400 Systolic blood pressure 105 mm[Hg] MD Jarrell Granados Work Phone: [facility] [place] 01-06-2024 09:55-0400 Body temperature 97.7 [degF] MD Jarrell Granados Work Phone: [facility] [place] 01-06-2024 09:55-0400 Body weight 63.04 kg MD Jarrell Granados Work Phone: [facility] [place] 01-06-2024 09:55-0400 Diastolic blood pressure 74 mm[Hg] MD Jarrell Granados Work Phone: [facility] [place] 01-06-2024 09:55-0400 Heart rate 58 /min MD Jarrell Granados Work Phone: [facility] [place] 01-06-2024 09:55-0400 Respiratory rate 16 /min MD Jarrell Granados Work Phone: [facility] [place] 01-06-2024 09:55-0400 SaO2% (BldA) [Mass fraction] 99 % MD Jarrell Granados Work Phone: [facility] [place] 01-06-2024 09:55-0400 Systolic blood pressure 133 mm[Hg] MD Jarrell Granados Work Phone: [facility] [place] 09-28-2023 11:08-0500 Body height 162.56 cm MD Jarrell Granados Work Phone: [facility] [place] 09-28-2023 11:08-0500 Body mass index (BMI) [Ratio] 23.6 kg/m2 MD Jarrell Granados Work Phone: [facility] [place] 09-28-2023 11:08-0500 Body temperature 98.2 [degF] MD Jarrell Granados Work Phone: [facility] [place] 09-28-2023 11:08-0500 Body weight 62.34 kg MD Jarrell Granados Work Phone: [facility] [place] 09-28-2023 11:08-0500 Diastolic blood pressure 53 mm[Hg] MD Jarrell Granados Work Phone: [facility] [place] 09-28-2023 11:08-0500 Heart rate 53 /min MD Jarrell Granados Work Phone: [facility] [place] 09-28-2023 11:08-0500 Respiratory rate 20 /min MD Jarrell Granados Work Phone: [facility] [place] 09-28-2023 11:08-0500 SaO2% (BldA) [Mass fraction] 100 % MD Jarrell Granados Work Phone: [facility] [place] 09-28-2023 11:08-0500 Systolic blood pressure 126 mm[Hg] MD Jarrell Granados Work Phone: [facility] [place] 09-18-2023 09:00-0500 Body height 162.56 cm Tamar Alvarado Other [facility] Other 09-18-2023 09:00-0500 Body mass index (BMI) [Ratio] 24.54 kg/m2 Tamar Alvarado Other [facility] Other 09-18-2023 09:00-0500 Body temperature 98 [degF] Tamar Alvarado Other [facility] Other 09-18-2023 09:00-0500 Body weight 64.86 kg Tamar Alvarado Other [facility] Other 09-18-2023 09:00-0500 Respiratory rate 18 /min Tamar Alvarado Other [facility] Other 09-18-2023 09:00-0500 SaO2% (BldA) [Mass fraction] 98 % Tamar Alvarado Other [facility] Other 09-02-2023 09:00-0500 Diastolic blood pressure 48 mm[Hg] MD Jarrell Granados Work Phone: [facility] [place] 09-02-2023 09:00-0500 Heart rate 56 /min MD Jarrell Granados Work Phone: [facility] [place] 09-02-2023 09:00-0500 Respiratory rate 16 /min MD Jarrell Granados Work Phone: [facility] [place] 09-02-2023 09:00-0500 SaO2% (BldA) [Mass fraction] 99 % MD Jarrell Granados Work Phone: [facility] [place] 09-02-2023 09:00-0500 Systolic blood pressure 113 mm[Hg] MD Jarrell Granados Work Phone: [facility] [place] 08-08-2023 11:30-0500 Body height 162.56 cm Criss Enrique Other [facility] Other 08-08-2023 11:30-0500 Body mass index (BMI) [Ratio] 24.03 kg/m2 Criss Enrique Other [facility] Other 08-08-2023 11:30-0500 Body temperature 99 [degF] Criss Enrique Other [facility] Other 08-08-2023 11:30-0500 Body weight 63.5 kg Criss Enrique Other [facility] Other 08-08-2023 11:30-0500 Respiratory rate 20 /min Criss Enrique Other [facility] Other 08-08-2023 11:30-0500 SaO2% (BldA) [Mass fraction] 94 % Criss Enrique Other [facility] Other 06-10-2023 09:25-0400 Body temperature 97.6 [degF] DO [facility] Work Phone: [facility] [place] 06-10-2023 09:25-0400 Body weight 61.14 kg DO [facility] Work Phone: [facility] [place] 06-10-2023 09:25-0400 Diastolic blood pressure 50 mm[Hg] DO [facility] Work Phone: [facility] [place] 06-10-2023 09:25-0400 Heart rate 55 /min DO [facility] Work Phone: [facility] [place] 06-10-2023 09:25-0400 Respiratory rate 16 /min DO [facility] Work Phone: [facility] [place] 06-10-2023 09:25-0400 SaO2% (BldA) [Mass fraction] 99 % DO [facility] Work Phone: [facility] [place] 06-10-2023 09:25-0400 Systolic blood pressure 124 mm[Hg] DO [facility] Work Phone: [facility] [place] 03-10-2023 10:20-0400 Body temperature 97.5 [degF] DO [facility] Work Phone: [facility] [place] 03-10-2023 10:20-0400 Body weight 68.03 kg DO [facility] Work Phone: [facility] [place] 03-10-2023 10:20-0400 Diastolic blood pressure 53 mm[Hg] DO [facility] Work Phone: [facility] [place] 03-10-2023 10:20-0400 Heart rate 56 /min DO [facility] Work Phone: [facility] [place] 03-10-2023 10:20-0400 Respiratory rate 16 /min DO [facility] Work Phone: [facility] [place] 03-10-2023 10:20-0400 SaO2% (BldA) [Mass fraction] 100 % DO [facility] Work Phone: [facility] [place] 03-10-2023 10:20-0400 Systolic blood pressure 117 mm[Hg] DO [facility] Work Phone: [facility] [place] 01-27-2023 13:49-0400 Body temperature 98.2 [degF] DO [facility] Work Phone: [facility] [place] 01-27-2023 13:49-0400 Body weight 69.89 kg DO [facility] Work Phone: [facility] [place] 01-27-2023 13:49-0400 Diastolic blood pressure 43 mm[Hg] DO [facility] Work Phone: [facility] [place] 01-27-2023 13:49-0400 Heart rate 60 /min DO [facility] Work Phone: [facility] [place] 01-27-2023 13:49-0400 Respiratory rate 20 /min DO [facility] Work Phone: [facility] [place] 01-27-2023 13:49-0400 SaO2% (BldA) [Mass fraction] 99 % DO [facility] Work Phone: [facility] [place] 01-27-2023 13:49-0400 Systolic blood pressure 104 mm[Hg] DO [facility] Work Phone: [facility] [place] 11-27-2022 10:10-0400 Body temperature 97 [degF] DO [facility] Work Phone: [facility] [place] 11-27-2022 10:10-0400 Body weight 73.02 kg DO [facility] Work Phone: [facility] [place] 11-27-2022 10:10-0400 Diastolic blood pressure 52 mm[Hg] DO [facility] Work Phone: [facility] [place] 11-27-2022 10:10-0400 Heart rate 61 /min DO [facility] Work Phone: [facility] [place] 11-27-2022 10:10-0400 Respiratory rate 16 /min DO [facility] Work Phone: [facility] [place] 11-27-2022 10:10-0400 SaO2% (BldA) [Mass fraction] 100 % DO [facility] Work Phone: [facility] [place] 11-27-2022 10:10-0400 Systolic blood pressure 123 mm[Hg] DO [facility] Work Phone: [facility] [place] 08-28-2022 10:33-0500 Body height 162.56 cm DO [facility] Work Phone: [facility] [place] 06-19-2022 10:30-0400 Body height 162.56 cm Jarrell Granados Other [facility] Other 06-19-2022 10:30-0400 Body mass index (BMI) [Ratio] 27.46 kg/m2 Jarrell Granados Other [facility] Other 06-19-2022 10:30-0400 Body weight 72.58 kg Jarrell Granados Other [facility] Other 05-28-2022 11:14-0400 Body temperature 97.5 [degF] DO [facility] Work Phone: [facility] [place] 05-28-2022 11:14-0400 Body weight 73.02 kg DO [facility] Work Phone: [facility] [place] 05-28-2022 11:14-0400 Diastolic blood pressure 75 mm[Hg] DO [facility] Work Phone: [facility] [place] 05-28-2022 11:14-0400 Heart rate 55 /min DO [facility] Work Phone: [facility] [place] 05-28-2022 11:14-0400 Respiratory rate 16 /min DO [facility] Work Phone: [facility] [place] 05-28-2022 11:14-0400 SaO2% (BldA) [Mass fraction] 98 % DO [facility] Work Phone: [facility] [place] 05-28-2022 11:14-0400 Systolic blood pressure 147 mm[Hg] DO [facility] Work Phone: [facility] [place] 04-23-2022 08:07-0400 Body temperature 97.8 [degF] DO [facility] Work Phone: [facility] [place] 04-23-2022 08:07-0400 Body weight 74.84 kg DO [facility] Work Phone: [facility] [place] 04-23-2022 08:07-0400 Diastolic blood pressure 75 mm[Hg] DO [facility] Work Phone: [facility] [place] 04-23-2022 08:07-0400 Heart rate 60 /min DO [facility] Work Phone: [facility] [place] 04-23-2022 08:07-0400 Respiratory rate 16 /min DO [facility] Work Phone: [facility] [place] 04-23-2022 08:07-0400 SaO2% (BldA) [Mass fraction] 99 % DO [facility] Work Phone: [facility] [place] 04-23-2022 08:07-0400 Systolic blood pressure 142 mm[Hg] DO [facility] Work Phone: [facility] [place] 10-30-2021 13:04-0500 Body height 162.56 cm DO [facility] Work Phone: [facility] [place] 10-23-2021 15:30-0500 Body height 162.56 cm Jarrell Granados Other [facility] Other 10-23-2021 15:30-0500 Body mass index (BMI) [Ratio] 27.46 kg/m2 Jarrell Granados Other [facility] Other 10-23-2021 15:30-0500 Body weight 72.58 kg Jarrell Granados Other [facility] Other 09-04-2021 16:45-0500 Body height 162.56 cm Jarrell Granados Other [facility] Other 09-04-2021 16:45-0500 Body mass index (BMI) [Ratio] 27.46 kg/m2 Jarrell Granados Other [employer] Other 09-04-2021 16:45-0500 Body weight 72.58 kg Jarrell Granados Other [employer] Other 09-04-2021 16:45-0500 Diastolic blood pressure 63 mm[Hg] Jarrell Granados Other [employer] Other 09-04-2021 16:45-0500 Systolic blood pressure 129 mm[Hg] Jarrell Granados Other [employer] Other Encounters Encounter Date Encounter Type Care Provider Facility Start: 08-11-2024 ambulatory Jayy Lomas Facility:[facility] Start: 08-07-2024 End: 08-07-2024 [employer] flowsheet Jayy Lomas MD Work Phone: [facility] Start: 08-07-2024 End: 08-07-2024 Bamboo flowsheet Jayy Lomas MD Work Phone: [facility] Start: 08-07-2024 End: 08-07-2024 Office outpatient visit 25 minutes Jayy Lomas MD Work Phone: [facility] Comment on above: Paroxysmal atrial fi brillation (CMS/HCC) (Primary Dx); Chronic bilateral low back pain without sciatica; COPD with acute exacerbation (CMS/HCC) Start: 08-07-2024 End: 08-07-2024 ambulatory JAYY LOMAS Not Available Start: 08-03-2024 End: 08-03-2024 External Result Encounter Bell Camargo MD Work Phone: [facility] Unsolicited Start: 08-03-2024 End: 08-03-2024 External Result Encounter Bell Camargo MD Work Phone: [facility] Unsolicited Start: 07-03-2024 End: 07-03-2024 Bamboo flowsheet Jayy Lomas MD Work Phone: [facility] Start: 07-03-2024 End: 07-03-2024 Bamboo flowsheet Jayy Lomas MD Work Phone: [facility] Start: 07-03-2024 End: 07-03-2024 Office outpatient visit 25 minutes Jayy Lomas MD Work Phone: [facility] Comment on above: Paroxysmal atrial fi brillation (CMS/HCC) (Primary Dx); Abnormal renal function test; Primary hypertension (CMS/HCC); Nonrheumatic mitral valve regurgitation; Acute cystitis without hematuria; Allergic dermatitis; Need for influenza vaccination Start: 07-03-2024 End: 07-03-2024 ambulatory JAYY LOMAS Not Available Start: 05-11-2024 End: 05-11-2024 ambulatory MD Jarrell Granados Work Phone: [facility] Work Phone: Start: 05-11-2024 End: 05-11-2024 Patient encounter procedure MD Jarrell Granados Work Phone: [facility] Work Phone: Start: 05-11-2024 Registered Recurring MD Tanmay Granados [facility] Work Phone: Start: 05-08-2024 End: 05-08-2024 External Result Encounter Bell Camargo MD Work Phone: [facility] Unsolicited Start: 05-08-2024 End: 05-08-2024 External Result Encounter Bell Camargo MD Work Phone: [facility] Unsolicited Start: 03-10-2024 End: 03-10-2024 ambulatory [facility] Start: 02-28-2024 End: 02-28-2024 ambulatory JAYY Palma LOMAS Not Available Start: 01-24-2024 End: 01-24-2024 ambulatory JAYY Waldrop ABEBE Not Available Start: 01-07-2024 End: 01-07-2024 ambulatory MD Jarrell Granados Work Phone: [facility] Work Phone: Start: 01-07-2024 End: 01-07-2024 Patient encounter procedure MD Jarrell Granados Work Phone: [facility] [place] Work Phone: Start: 01-06-2024 Registered Recurring MD Tanmay Granados [facility]: [facility] Work Phone: Start: 01-06-2024 End: 01-06-2024 Patient encounter procedure MD Jarrell Granados Work Phone: [facility] Work Phone: Start: 11-17-2023 End: 11-17-2023 ambulatory JAYY LOMAS Not Available Start: 10-14-2023 End: 10-14-2023 ambulatory [facility] Start: 09-28-2023 Registered Recurring MD Tanmay Granados [facility]: [facility] Work Phone: Start: 09-28-2023 End: 09-28-2023 ambulatory MD Jarrell Granados Work Phone: [facility] Work Phone: Start: 09-28-2023 End: 09-28-2023 Patient encounter procedure MD Jarrell Granados Work Phone: [facility] Work Phone: Start: 09-26-2023 Tonie Reece MD Work Phone: [facility] Comment on above: Hypothyroidism, unsp ecified (CMS/HCC) Start: 09-23-2023 End: 09-23-2023 ambulatory JAYY LOMAS Not Available Start: 09-18-2023 End: 09-18-2023 ambulatory Tamar Alvarado Other [employer] Other Start: 09-18-2023 Office outpatient visit 25 minutes Tamar Alvarado [facility] [place] Start: 08-08-2023 End: 08-08-2023 ambulatory Criss Enrique Other [employer] Other Start: 08-08-2023 Office outpatient visit 15 minutes Criss Enrique [facility] [place] Start: 08-08-2023 End: 08-08-2023 Patient encounter procedure MD Jarrell Granados Work Phone: [facility] [place] Work Phone: Start: 06-10-2023 End: 06-10-2023 ambulatory DO Ceasar House Work Phone: [facility] Work Phone: Start: 06-10-2023 End: 06-10-2023 Registered Recurring DO Ceasar House Work Phone: [facility] Work Phone: Start: 03-30-2023 End: 03-30-2023 ambulatory [facility] Start: 03-10-2023 End: 03-10-2023 ambulatory DO Ceasar House Work Phone: [facility] Work Phone: Start: 03-10-2023 End: 03-10-2023 Registered Recurring DO Ceasar House Work Phone: [facility] Work Phone: Start: 01-27-2023 End: 01-27-2023 ambulatory DO Ceasar Dunn Work Phone: [facility] Work Phone: Start: 01-27-2023 End: 01-27-2023 Registered Recurring DO Ceasar Dunn Work Phone: [facility] Work Phone: Start: 11-27-2022 End: 11-27-2022 ambulatory DO Ceasar Dunn Work Phone: [facility] Work Phone: Start: 11-27-2022 End: 11-27-2022 Registered Recurring DO Ceasar Dunn Work Phone: [facility] Work Phone: Start: 11-24-2022 End: 11-25-[address] CEASAR DUNN Facility:[facility] Start: 09-25-2022 End: 09-26-[address] CEASAR DUNN Facility:[facility] Start: 08-25-2022 End: 08-26-[address] BELL CAMARGO Facility:[facility] Start: 08-19-2022 End: 08-19-[address] PAM MINOR Facility:[facility] Start: 07-02-2022 Rx Renewal Ceasar P [facility] Work Phone: Start: 06-19-2022 End: 06-19-2022 ambulatory Jarrell Granados Other [facility] [employer] Other Start: 06-19-2022 Patient encounter procedure Jarrell Granados [facility] Start: 06-03-2022 Rx Renewal Ceasar P Hous e Work Phone: [facility] 250 DO Work Phone: Start: 05-28-2022 End: 05-28-2022 ambulatory DO Ceasar House Work Phone: [facility] Work Phone: Start: 05-28-2022 End: 05-28-2022 Registered Recurring DO Ceasar House [facility] Start: 05-25-2022 End: 05-26-[address] BELL CAMARGO Facility:[facility] Start: 04-23-2022 End: 04-23-2022 Registered Recurring DO Ceasar House [facility] Start: 04-16-2022 End: 04-17-[address] BELL [...] Facility:[facility] Start: 11-12-2021 Patient encounter procedure Ceasar De León House Work Phone: [facility] 250 DO Work Phone: Start: 10-23-2021 End: 10-23-2021 ambulatory Jarrell Granados Other [facility] [employer] Other Start: 10-23-2021 Patient encounter procedure Jarrell Granados [facility] Start: 09-29-2021 End: 09-29-2021 ambulatory Jarrell Granados Other [facility] [employer] Other Start: 09-29-2021 Telephone encounter Jarrell FLORES [facility] Start: 09-22-2021 End: 09-22-2021 ambulatory Jarrell Granados Other [employer] Other Start: 09-22-2021 Telephone encounter Jarrell FLORES [facility] Start: 09-10-2021 End: 09-10-2021 ambulatory Alem Jimenez Other [employer] Other Start: 09-10-2021 Telephone encounter Alme Jimneez [facility] Start: 09-04-2021 End: 09-04-2021 ambulatory Jarrell Granados Other [employer] Other Start: 09-04-2021 [facility] visit new patient Jarrell Granaods [facility] Procedures Date Procedure Procedure Detail Performing Clinician Start: 08-03-2024 Complete blood count with white cell differential, automated Bell Camargo MD Work Phone: Start: 07-03-2024 Urnls dip stick/tabl et rgnt non-auto w/o micrscp Jayy Lomas MD Work Phone: Start: 05-08-2024 Complete blood count with white cell differential, automated Bell Camargo MD Work Phone: Start: 04-30-2022 CT of abdomen and pe lvis without contrast DO Ceasar Dunn Work Phone: Cataract surgery Ceasar De [facility] Work Phone: Cholecystectomy Ceasar De Le[facility] use Work Phone: Colonoscopy Ceasar [facility] Work Phone: Hysterectomy [facility]asar [facility] Work Phone: Tonsillectomy Ceasar Wan e Work Phone: Plan of Treatment Date Care Activity Detail Author Start: 01-23-2025 Medicare Annual Well ness (AWV) Medicare Annual Wellness (AWV) [facility] Start: 01-01-2025 End: 05-12-2025 Patient encounter procedure 01/01/2025 8:30 AM EDT Office Visit [facility] [address] [place] [address] Jayy Lomas MD [address] [place] [address] [facility] Start: 08-07-2024 End: 08-07-2024 Patient encounter procedure 08/07/2024 1:30 PM EST Office Visit [facility] [address] [place] [address] Jayy Lomas MD [address] [place] [address] Arrived [facility] Comment on above: Arrived Start: 07-03-2024 End: 07-03-2024 Patient encounter procedure [facility] Comment on above: Arrived Start: 05-03-2024 [facility] Start: 04-25-2024 [facility] Start: 04-23-2024 Influenza vaccination Influenza Vacc ine (#1) [facility] Start: 04-05-2024 [facility] Start: 01-24-2024 End: 01-24-2024 Patient encounter procedure 01/24/2024 9:15 AM EDT Office Visit [facility] [address] [place] [address] Jayy Lomas MD [address] [place] [address] [facility] Start: 10-13-2023 [facility] Start: 09-28-2023 [facility] Start: 09-02-2023 End: 09-02-2023 [facility] Start: 08-27-2023 End: 08-27-2023 [facility] Start: 07-29-2023 [facility] Start: 07-29-2023 [facility] Start: 07-19-2023 [facility] Start: 07-08-2023 [facility] Start: 07-01-2023 [facility] Start: 06-10-2023 [facility] Start: 06-03-2023 [facility] Start: 05-31-2023 [facility] Start: 05-26-2023 End: 05-26-2023 [facility] Start: 05-17-2023 [facility] Start: 05-06-2023 [facility] Start: 04-30-2023 [facility] Start: 04-28-2023 [facility] Start: 04-23-2023 [facility] Start: 04-19-2023 [facility] Start: 03-22-2023 [facility] Start: 03-16-2023 [facility] Start: 03-15-2023 [facility] Start: 03-11-2023 [facility] Start: 03-10-2023 [facility] Start: 02-22-2023 [facility] Start: 02-19-2023 [facility] Start: 02-12-2023 [facility] Start: 02-10-2023 [facility] Start: 02-02-2023 [facility] Start: 01-22-2023 End: 01-22-2023 [facility] Start: 12-14-2022 [facility] Start: 12-07-2022 [facility] Start: 10-23-2022 [facility] Start: 09-08-2022 [facility] Start: 09-01-2022 [facility] Start: 08-20-2022 [facility] Start: 05-20-2022 [facility] Start: 05-08-2022 [facility] Start: 05-01-2022 [facility] Start: 05-01-2022 [facility] Start: 03-18-2022 End: 03-19-2022 [facility] Start: 03-11-2022 [facility] Start: 02-27-2022 [facility] Start: 08-11-2015 Pneumococcal Vaccine : 65+ Years (2 - PPSV23 or PCV20) Pneumococcal Vaccine: 65+ Years (2 - PPSV23 or PCV20) [facility] Start: 08-11-2015 Pneumococcal Vaccine : 65+ Years (2 of 2 - PPSV23 or PCV20) Pneumococcal Vaccine: 65+ Years (2 of 2 - PPSV23 or PCV20) [facility] Start: 1945 Medicare Annual Well ness (AWV) Medicare Annual Wellness (AWV) [facility] Comprehensive metabo lic 1999 panel - Serum or Plasma [facility] Work Phone: Comprehensive metabo lic 1999 panel - Serum or Plasma [facility] Comprehensive metabo lic 1999 panel - Serum or Plasma [facility] Comprehensive metabo lic 1999 panel - Serum or Plasma [facility] Comprehensive metabo lic 1999 panel - Serum or Plasma [facility] Comprehensive metabo lic 1999 panel - Serum or Plasma [facility] Comprehensive metabo lic 1999 panel - Serum or Plasma [facility] Comprehensive metabo lic 1999 panel - Serum or Plasma [facility] Comprehensive metabo lic 1999 panel - Serum or Plasma Comprehensive metabolic panel Lab Routine 05/08/2024 10:56 AM EDT [facility] Work Phone: Comprehensive metabo lic 2000 panel - Serum or Plasma Comprehensive metabolic panel Lab Routine 08/03/2024 1:25 PM EST [facility] Work Phone: CT Abdomen and Pelvi s W contrast IV [facility] Work Phone: Ferritin [Mass/volum e] in Serum or Plasma [facility] Work Phone: Ferritin [Mass/volum e] in Serum or Plasma [facility] Ferritin [Mass/volum e] in Serum or Plasma [facility] Ferritin [Mass/volum e] in Serum or Plasma [facility] Ferritin [Mass/volum e] in Serum or Plasma [facility] Ferritin [Mass/volum e] in Serum or Plasma [facility] Ferritin [Mass/volum e] in Serum or Plasma [facility] Ferritin [Mass/volum e] in Serum or Plasma [facility] Ferritin [Mass/volum e] in Serum or Plasma [facility] Folate [Mass/volume] in Serum or Plasma [facility] Homocysteine [Moles/volume] in Serum or Plasma [facility] Homocysteine [Moles/volume] in Serum or Plasma [facility] Iron and Iron bindin g capacity panel - Serum or Plasma Iron and TIBC Lab Routine 05/08/2024 10:56 AM EDT [facility] Vitamin B12 measurement [facility] Immunizations Immunization Date Immunization Notes Care Provider [facility] 07-03-2024 Influenza, High-dose Seasonal, Quadrivalent, Preservative Free Jayy Lomas MD Work Phone: [facility] 06-11-2023 Influenza, Seasonal, Quadrivalent, Adjuvanted Shaikh Chevy LUBIN Work Phone: [facility] 06-11-2023 RSV, recombinant, protein subunit RSVpreF, adjuvant reconstitu, 120mcg/0.5mL, PF (Arexvy) Shaikh Chevy LUBIN Work Phone: [facility] 06-11-2023 influenza virus vaccine, unspecified formulation Bell Camargo MD Work Phone: [facility] 06-18-2022 Influenza, Seasonal, Quadrivalent, Adjuvanted Shaikh Chevy LUBIN Work Phone: [facility] 06-21-2021 influenza, high dose seasonal, preservative-free [employer] Work Phone: [facility] 250 DO Work Phone: 05-27-2020 Fluad Quadrivalent 0 .5 ML Intramuscular Prefilled Syringe [employer] [facility] DO Work Phone: 05-23-2020 influenza, seasonal, injectable Ceasar P House Work Phone: [facility] 250 DO Work Phone: 07-26-2019 Seasonal trivalent influenza vaccine, adjuvanted, preservative free Ceasar P House Work Phone: [facility] 250 DO Work Phone: 06-23-2019 influenza, high dose seasonal, preservative-free Ceasar P House Work Phone: [place] [address] DO Work Phone: 05-23-2018 influenza virus vaccine, unspecified formulation Ceasar P House Work Phone: [place] [address] DO Work Phone: 05-09-2018 Seasonal trivalent influenza vaccine, adjuvanted, preservative free Ceasar P House Work Phone: [place] [address] DO Work Phone: 05-02-2017 Seasonal trivalent influenza vaccine, adjuvanted, preservative free Ceasar P House Work Phone: [place] [address] DO Work Phone: 06-14-2016 pneumococcal conjuga te vaccine, 13 valent Ceasar P House Work Phone: [place] [address] DO Work Phone: 06-16-2015 influenza, high dose seasonal, preservative-free Ceasar P House Work Phone: [facility] 250 DO Work Phone: 06-16-2015 pneumococcal conjuga te vaccine, 13 valent Ceasar P House Work Phone: [facility] 250 DO Work Phone: Payers Date Payer Category Payer Self-pay [id number] 2022 Private Health Insurance [employer] E [id number] 2022 Unknown 2021 Unknown [id number] 2011 Medicare [id number] 1959 Medicare [id number] 1959 Unknown [id number] 1946 Unknown [id number] 2.16.840.1.230445.3.579.2 .593 1946 Unknown [id number] 2.16.840.1.006306.3.579.2 .593 1946 Unknown [id number] 2.16840.1.128914.3.579.2 .593 1946 Unknown [id number] 2.16.840.1.307859.3.579.2 .593 1946 Unknown [id number] 2.16.840.1.499397.3.579.2 .593 1946 Unknown [id number] 2.16.840.1.934971.3.579.2 .593 1946 Unknown [id number] 2.16.840.1.845007.3.579.2 .593 1946 Unknown [id number] 2.16.840.1.360084.3.579.2 .593 1946 Unknown [id number] 2.16.840.1.485413.3.579.2 .593 1946 Unknown [id number] 2.16.840.1.733485.3.579.2 .593 1946 Unknown [id number] 2.16.840.1.302343.3.579.2 .593 1946 Unknown [id number] 2.16.840.1.614191.3.579.2 .593 1946 Unknown [id number] 2.16.840.1.617813.3.579.2 .1259 1946 Unknown [id number] 2.16.840.1.460091.3.579.2 .1259 1946 Unknown [id number] 2.16840.1.557251.3.579.2 .1259 1946 Unknown [id number] 2.840.1.930137.3.579.2 .1259 1946 Unknown [id number] 2.16840.1.268934.3.579.2 .1259 1946 Unknown [id number] 2.16840.1.844223.3.579.2 .1259 Medicare [place] [facility] PFFS [id number] Unknown [id number] Unknown [id number] [id number] Unknown [id number] 2.840.1.815446.3.579.2 .531 Social History Date Type Detail Facility Start: 09-23-2023 End: 01-24-2024 Sex Assigned At [facility] Start: 04-23-2022 End: 06-10-2023 Tobacco smoking status NHIS Ex-smoker (finding) [facility] Start: 1945 Sex Assigned At Female F [facility] Start: 07-30-2023 End: 01-24-2024 Caffeine use Caffeine use [facility] Start: 07-30-2023 Tobacco smoking stat [facility] Smokes tobacco daily [facility] History of tobacco use Cigarette Smoker [facility] Start: 1945 Sex Assigned At Not on file [facility] Start: 01-06-2024 Tobacco smoking stat [facility] Current some day smoker [facility] Medical Equipment Procedure Code Equipment Code Equipment Origin al Text Equipment Identifier Dates Capsule endoscopy, for patency of lumen evaluation Video capsule endoscopy system [id number] FDA Start: 10-15-2021 Goals Date Patient Goal Desired Activity /State Clinical Notes 09-04-2021 to 08-07-2024 Jayy Lomas MD - 08/07/2024 1:30 PM Marcos Lomas MD - 07/03/2024 8:30 AM EST Note Date & Type Note Facility 08-07-2024 History of Present illness Narrative Images from the original note were not included. HPI Med Refill Additional comments: SHANTEL CAMPO Last edited by Cheyenne Ortiz LPN on 08/07/2024 1:15 PM. Subjective Patient ID: Terri Newton is a 79 y.o. female who presents for Med Refill (JON--MALENA CAMPO) and URI. Upper Respiratory Infection Patient complains of symptoms of a URI. Symptoms include congestion, cough described as productive, headache , nasal congestion, shortness of breath, sinus pressure, and wheezing. Onset of symptoms was 3 days ago, and has been gradually worsening since that time. Treatment to date: cough suppressants and decongestants. USING NEBULIZER AT HOME Med Refill URI Current Outpatient Medications on File Prior to Visit Medication Sig Dispense Refill albuterol (2.5 MG/3ML) 0.083% nebulizer solution Take 2.5 mg by nebulization every 4 (four) hours if needed albuterol HFA 90 mcg/act inhaler Inhale 2 puffs every 4 (four) hours if needed amLODIPine (Norvasc) 5 MG tablet Take 5 mg by mouth in the morning. cetirizine (ZyrTEC) 10 MG tablet Take 1 tablet (10 mg) by mouth Daily 30 tablet 11 furosemide (Lasix) 40 MG tablet Take 40 mg by mouth in the morning. levothyroxine (Synthroid, Levoxyl) 112 MCG tablet TAKE 1 TABLET BY MOUTH IN THE MORNING 90 tablet 1 methocarbamol (Robaxin) 500 MG tablet Take 500 mg by mouth Daily as needed propafenone (Rythmol) 150 MG tablet Take 150 mg by mouth in the morning and 150 mg before bedtime. Morning and bedtime. No current facility-administered medications on file prior to visit. I have reviewed and reconciled the history and medication list with the patient today. No Known Allergies Social History Tobacco Use Smoking status: Every Day Current packs/day: 1.00 Types: Cigarettes Family History Problem Relation Name Age of Onset Depression Mother Heart disease Father Hypertension Father Stroke Sister Cancer Sister stage 3 Lung cancer, stroke Atrial fibrillation Brother Fibromyalgia Brother Past Medical History: Diagnosis Date At low risk for fall Atrial fibrillation (CMS/HCC) In [facility]. Had CV done 4-5 years ago Not on blood thinner because of chronic GI bleeding. Chronic GI bleeding Reports chronic GI bleeding from small intestine. Gets periodic labs checked, and received Iron infusion every 2 months for it COPD exacerbation (CMS/HCC) Patient was seen for COPD exacerbation last appt. This is a f/u to ensure improvement/resolution Hypertension (CMS/HCC) at goal Hypotension Reports dizziness, feeling weak and tired. BP in low 90s. This has been going on for a week or so She has hx of chronic GIB and received IV infusions once monthly. Her last lab check was on 05/05 with Hb of 9 - her baseline is 8-9 Hypothyroid (CMS/HCC) On Levothyroxine TSH 9.45 Nephrolithiasis Pain, dental One week. No fever/swelling,. Tobacco user Past Surgical History: Procedure Laterality Date CARDIOVERSION CHOLECYSTECTOMY LITHOTRIPSY Nephrolithiasis TOTAL VAGINAL HYSTERECTOMY 2008 Visit Vitals Ht 5' 4 BMI 23.69 kg/m Smoking Status Every Day BSA 1.68 m Review of Systems Objective Physical Exam Constitutional: General: She is not in acute distress. Appearance: Normal appearance. She is well-developed. HENT: Head: Normocephalic and atraumatic. Right Ear: Tympanic membrane and ear canal normal. Left Ear: Tympanic membrane and ear canal normal. Mouth/Throat: Mouth: Mucous membranes are moist. Eyes: General: No scleral icterus. Conjunctiva/sclera: Conjunctivae normal. Neck: Thyroid: No thyromegaly. Cardiovascular: Rate and Rhythm: Regular rhythm. Bradycardia present. Heart sounds: Murmur heard. Pulmonary: Effort: Pulmonary effort is normal. Breath sounds: Wheezing and rhonchi present. No rales. Lymphadenopathy: Cervical: No cervical adenopathy. Skin: General: Skin is warm and dry. Neurological: General: No focal deficit present. Mental Status: She is alert and oriented to person, place, and time. Psychiatric: Mood and Affect: Mood normal. Behavior: Behavior normal. Assessment/Plan Diagnoses and all orders for this visit: Paroxysmal atrial fibrillation (CMS/HCC) Chronic bilateral low back pain without sciatica - methocarbamol (Robaxin) 500 MG tablet; Take 1 tablet (500 mg) by mouth every 8 (eight) hours if needed for muscle spasms COPD with acute exacerbation (CMS/HCC) - levoFLOXacin (Levaquin) 500 MG tablet; Take 1 tablet (500 mg) by mouth Daily for 7 days - benzonatate (Tessalon Perles) 100 MG capsule; Take 1 capsule (100 mg) by mouth 3 (three) times a day as needed for cough Do not crush or chew. No follow-ups on file. documented in this encounter [facility] 07-03-2024 History of Present illness Narrative Images from the original note were not included. Subjective Patient ID: Terri Newton is a 79 y.o. female who presents for Atrial Fibrillation, Hypertension, UTI, and Rash. Hypertension Patient is here for follow-up of elevated blood pressure. Blood pressure is well controlled at home. Cardiac symptoms: none. Patient denies chest pain, claudication, irregular heart beat, lower extremity edema, near-syncope, orthopnea, palpitations, and paroxysmal nocturnal dyspnea. Cardiovascular risk factors: advanced age (older than 55 for men, 65 for women) and hypertension . Urinary Tract Infection Patient complains of burning with urination and suprapubic pressure. She has had symptoms for 1 week. Patient denies fever and stomach ache. Pt states she has been seen for the rash in the past--on back and her next-- states it itches Atrial Fibrillation Past medical history includes atrial fibrillation. Hypertension UTI Rash Current Outpatient Medications on File Prior to Visit Medication Sig Dispense Refill albuterol (2.5 MG/3ML) 0.083% nebulizer solution Take 2.5 mg by nebulization every 4 (four) hours if needed albuterol HFA 90 mcg/act inhaler Inhale 2 puffs every 4 (four) hours if needed amLODIPine (Norvasc) 5 MG tablet Take 5 mg by mouth in the morning. cetirizine (ZyrTEC) 10 MG tablet Take 1 tablet (10 mg) by mouth Daily 30 tablet 11 furosemide (Lasix) 40 MG tablet Take 40 mg by mouth in the morning. levothyroxine (Synthroid, Levoxyl) 112 MCG tablet TAKE 1 TABLET BY MOUTH IN THE MORNING 90 tablet 1 methocarbamol (Robaxin) 500 MG tablet Take 500 mg by mouth Daily as needed propafenone (Rythmol) 150 MG tablet Take 150 mg by mouth in the morning and 150 mg before bedtime. Morning and bedtime. No current facility-administered medications on file prior to visit. I have reviewed and reconciled the history and medication list with the patient today. No Known Allergies Social History Tobacco Use Smoking status: Every Day Current packs/day: 1.00 Types: Cigarettes Family History Problem Relation Name Age of Onset Depression Mother Heart disease Father Hypertension Father Stroke Sister Cancer Sister stage 3 Lung cancer, stroke Atrial fibrillation Brother Fibromyalgia Brother Past Medical History: Diagnosis Date At low risk for fall Atrial fibrillation (CMS/HCC) In [facility]. Had CV done 4-5 years ago Not on blood thinner because of chronic GI bleeding. Chronic GI bleeding Reports chronic GI bleeding from small intestine. Gets periodic labs checked, and received Iron infusion every 2 months for it COPD exacerbation (CMS/HCC) Patient was seen for COPD exacerbation last appt. This is a f/u to ensure improvement/resolution Hypertension (CMS/HCC) at goal Hypotension Reports dizziness, feeling weak and tired. BP in low 90s. This has been going on for a week or so She has hx of chronic GIB and received IV infusions once monthly. Her last lab check was on 05/05 with Hb of 9 - her baseline is 8-9 Hypothyroid (CMS/HCC) On Levothyroxine TSH 9.45 Nephrolithiasis Pain, dental One week. No fever/swelling,. Tobacco user Past Surgical History: Procedure Laterality Date CARDIOVERSION CHOLECYSTECTOMY LITHOTRIPSY Nephrolithiasis TOTAL VAGINAL HYSTERECTOMY 2009 Visit Vitals BP 122/66 Pulse 52 Ht 5' 4 Wt 138 lb SpO2 94% BMI 23.69 kg/m Smoking Status Every Day BSA 1.68 m Review of Systems Skin: Positive for rash. Objective Physical Exam Constitutional: General: She is not in acute distress. Appearance: Normal appearance. She is well-developed. HENT: Head: Normocephalic and atraumatic. Right Ear: Tympanic membrane and ear canal normal. Left Ear: Tympanic membrane and ear canal normal. Mouth/Throat: Mouth: Mucous membranes are moist. Eyes: General: No scleral icterus. Conjunctiva/sclera: Conjunctivae normal. Neck: Thyroid: No thyromegaly. Cardiovascular: Rate and Rhythm: Regular rhythm. Bradycardia present. Heart sounds: Murmur heard. Pulmonary: Effort: Pulmonary effort is normal. No respiratory distress. Breath sounds: Normal breath sounds. No wheezing, rhonchi or rales. Lymphadenopathy: Cervical: No cervical adenopathy. Skin: General: Skin is warm and dry. Comments: Erythematous plaques, pruritic, lower and upper back, arms bilaterally Neurological: General: No focal deficit present. Mental Status: She is alert and oriented to person, place, and time. Psychiatric: Mood and Affect: Mood normal. Behavior: Behavior normal. Assessment/Plan Diagnoses and all orders for this visit: Paroxysmal atrial fibrillation (CMS/HCC) - This is a chronic medical condition that is stable since last assessment. No changes in treatment are suggested at this time. Abnormal renal function test Primary hypertension (CMS/HCC) Nonrheumatic mitral valve regurgitation Acute cystitis without hematuria - POCT Urinalysis dipstick - ciprofloxacin (Cipro) 250 MG tablet; Take 1 tablet (250 mg) by mouth in the morning and 1 tablet (250 mg) before bedtime. Do all this for 5 days. Allergic dermatitis - Kenalog shot was given Need for influenza vaccination - Influenza, high-dose seasonal, quadrivalent, PF (UAK028) (Fluzone High Dose Quad [place] 0.7mL dose) Follow up in about 6 months (around 12/31/2024) for Routine F/U. documented in this encounter [facility] 03-10-2024 Note [place] [facility] - [facility] Subjective Terri Newton is a 78 y.o. year old female patient being seen for 6 mo follow up PAF and hypertension. She remains off of any anticoagulation due to hx of GI bleed. Had routine echo 2 weeks ago, and labs in December and January. Denies chest pain, SOB, palpitations, and lightheadedness/syncope. 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 Newton is seen in follow-up. PMHx: paroxsymal a.fib s/p CV'n 03/2021, HTN, HLD, COPD, hypothyroidism, recent GI bleed requiring blood transfusion, gastritis, diverticulitis and GERD She is on propafenone for AF. At the end of May,, she was admitted for GI bleed and acute anemia. Her hgb was found to be as low as 2.6 for which she received multiple units of PRBCs. She underwent an EGD and colonscopy and was found to have gastritis and diverticulitis and hemorrhoids no acute bleeding was noted. 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 F/u hgb on 07/03/21 found her hgb to be improved to 10. Blood testing on 09/10/2021 showed hemoglobin dropping back to 6.6. She received 2 units of blood transfusion. There has been no checking of the hemoglobin after that. She was previously started on octreotide. Today she reports that she has been doing well. No angina. No dyspnea. No major bleeding. No lower extremity edema. No palpitations. No issues. Review of Systems Hematologic/Lymphatic: Bruises/bleeds easily. Musculoskeletal: Positive for arthritis and back pain. All other systems reviewed and are negative. Objective Visit Vitals BP 136/54 Pulse 51 Ht 1.626 m (5' 4 ) Wt 60.8 kg (134 lb) SpO2 98% BMI 23.00 kg/m??? Smoking Status Former BSA 1.66 m??? Physical Exam Constitutional: Appearance: She is well-developed. She is not ill-appearing. HENT: Head: Normocephalic and atraumatic. Nose: Nose normal. Eyes: General: No scleral icterus. Pupils: Pupils are equal, round, and reactive to light. Neck: Thyroid: No thyromegaly. Vascular: No JVD. Cardiovascular: Rate and Rhythm: Normal rate and regular rhythm. Pulses: Radial pulses are 2+ on the right side and 2+ on the left side. Heart sounds: Normal heart sounds. No murmur heard. No friction rub. No gallop. Pulmonary: Effort: Pulmonary effort is normal. No respiratory distress. Breath sounds: Normal breath sounds. No wheezing or rales. Chest: Chest wall: No tenderness. Abdominal: General: Bowel sounds are normal. There is no distension. Palpations: Abdomen is soft. Tenderness: There is no abdominal tenderness. Musculoskeletal: General: No swelling. Cervical back: Neck supple. Skin: General: Skin is warm and dry. Neurological: General: No focal deficit present. Mental Status: She is alert and oriented to person, place, and time. Psychiatric: Mood and Affect: Mood normal. Behavior: Behavior is cooperative. Judgment: Judgment normal. Allergies No Known Allergies Medications Current Outpatient Medications: amLODIPine (Norvasc) 5 mg tablet, Take 1 tablet (5 mg) by mouth in the morning., Disp: 90 tablet, Rfl: 3 cetirizine (ZyrTEC) 10 mg tablet, Take 10 mg by mouth in the morning., Disp: , Rfl: furosemide (Lasix) 40 mg tablet, Take 1 tablet (40 mg) by mouth once daily as directed. (Patient taking differently: Take 40 mg by mouth once daily as directed. 1/2 tab every other day), Disp: 90 tablet, Rfl: 3 levothyroxine (Tirosint) 75 mcg capsule, Take 75 mcg by mouth before breakfast., Disp: , Rfl: octreotide (SandoSTATIN) 100 mcg/mL injection, Infuse 100 mcg into a venous catheter every 30 (thirty) days. On hold, will see in December if continuing , Disp: , Rfl: propafenone (Rythmol) 150 mg tablet, TAKE 1 TABLET BY MOUTH TWICE DAILY (IN THE MORNING & AT BEDTIME), Disp: 180 tablet, Rfl: 3 methocarbamol (Robaxin) 500 mg tablet, Take 1 tablet by mouth if needed in the morning and at bedtime., Disp: , Rfl: Recent Labs Blood testing 11/04/2021: Hemoglobin 10.7, platelets 281. Blood testing 09/10/2021: Hemoglobin 6.6. Hematocrit 22. Blood testing 09/09/2021: Potassium 4.6, BUN 33, creatinine 1.52. NT proBNP 685 labs 06/21/2021: CBC showed hemoglobin 9.1, hematocrit 28.8 and platelet 337; Renal function BUN 23 creatinine 1.07; Liver function ALP elevated 264, AST 35 ALT 51 07/09/2023 (more content not included)... [facility] 10-14-2023 Note Patient here for 6 m [...] All other systems reviewed and are negative. [facility] 10-14-2023 Note Cardiology [facility] Note Subjective Terri Newton is a 78 y.o. year old female with paroxsymal a.fib s/p DCCV in 03/2021, HTN, HLD, COPD, CKD, hypothyroidism, GI bleed requiring blood transfusion, gastritis, diverticulitis and GERD seen in follow-up Patient Active Problem List Diagnosis Chronic obstructive lung disease (CMS/HCC) Hypertensive disorder Hypothyroidism Obesity Paroxysmal atrial fibrillation (CMS/HCC) Anemia History of GI bleed Arrest of [...] follows with Dr. Camargo with hematology in [place]. She is no longer having blood in her stool. Her hgb is stable. She is currently off of octreotide and iron infusions. She will see Dr. Camargo in December to see if she can continue to hold these. Denies c/o CP, dyspnea, orthopnea, PND, LE edema, dizziness/LH, palpitations, syncope. 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 Discussed she is at high risk for stroke not being on any anticoagulation. She states understanding. Re-discussed the option of an LAAO device, she remains uninterested at this time. I will reach out to her hematolog (more content not included)... [facility] 09-18-2023 Evaluation note Encounter Date Diagnosis [...] dehydration Aug, Acute cough (ICD-10 - R05.1) [facility] Other 12-17-2023 Evaluation note* Encounter Date Diagnosis [...] difficulty breathing, fever, chills, nausea, vomiting, fatigue. [facility] Other 08-08-2023 NotePatient here for 10 mo [...] pain. All other systems reviewed and are negative.[facility] 03-30-2023 NoteCardiology Clinic Note Subjective Terri [...] Stage 3b chronic kidney disease (CKD) (CMS/HCC) shelter current use of antiarrhythmic drug - ECG 12 lead; Future Plan . Paroxysmal atrial fibrillation -[id number] Score is 4, she is not on [...] about 6 months (around 09/30/2023). Ninfa Fam APRN-SPACE CONTROL AGENT [facility] Progress note Author Bell Camargo [facility] March 10, 2023 4:39pm Note Date/Time March 10, 2023 10:3 3am [facility] [place] [address] Hem/Onc Follow Up Note - OP Signed Patient: Terri Newton MR#: [id number] : 1945 Acct:[id number] Age/Sex: 77 / F Type: REG RCR [...] since iron infusions but followup labs at [place] show ongoing anemia with hemoglobin 8.1, iron [...] 1 month, next f/u 4 months with SUBSCRIPTION CLERK or myself. 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 She notes improving energy and [...] to assess response to folic acid and [id number] by insurance. Again has anemia 8.9 with iron sat 8.6%--agrees to repeat infusion of Injectafer 750mg IV x 2 weeks (has been getting this about once every 4 months). 4 week f/u CBC and iron studies, then SUBSCRIPTION CLERK f/u with exam and labs in 4 [...] as noted above. 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 Dictated By: Bell Camargo MD DD/ 1032 Signed By: <Electronically signed by MD Bell Camargo> 03/10/[address] [facility] Work Phone: 1(167) 206-553206-21-2023 Progress note Author [facility] February 10, 2023 4:14pm Note Date/Time January 27, 2023 2:04p [facility] [place] [address] Hem/Onc Follow Up Note - OP Signed Patient: Terri Newton MR#: [id number] : 1945 Acct:[id number] Age/Sex: 77 / F Type: REG RCR [...] 1 month, next f/u 4 months with SUBSCRIPTION CLERK or myself. 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 She notes improving energy and [...] to assess response to folic acid and [id number] by insurance. Again has anemia 8.9 with iron sat 8.6%--agrees to repeat infusion of Injectafer 750mg IV x 2 weeks (has been getting this about once every 4 months). 4 week f/u CBC and iron studies, then SUBSCRIPTION CLERK f/u with exam and labs in 4 [...] for coordination of care (as documented) and [id number] counseling of patient and/or family. Dictated By: Nusrat Bundy APRN DD/ 1404 Signed By: <Electronically signed by LESLY Bundy> 02/10/23 4381 [facility] Work Phone: 1([phone]) 381-854704-07-2023 Progress note Author Nusrat Bundy [facility] November 27, 2022 10:37am Note Date/Time November 27, 2022 10:2 9am [facility] [place] at [address] [address] Hem/Onc Follow Up Note - OP Signed Patient: Terri Newton MR#: [id number] : 1945 Acct:[id number] Age/Sex: 77 / F Type: REG RCR [...] 1 month, next f/u 4 months with SUBSCRIPTION CLERK or myself. 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 She notes improving energy and [...] to assess response to folic acid and [id number] by insurance. Again has anemia 8.9 with iron sat 8.6%--agrees to repeat infusion of Injectafer 750mg IV x 2 weeks (has been getting this about once every 4 months). 4 week f/u CBC and iron studies, then SUBSCRIPTION CLERK f/u with exam and labs in 4 [...] as noted above. 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 Dictated By: Nusrat Bundy APRN DD/ 1028 Signed By: <Electronically signed by LESLY Bundy> 11/27/22 1037 [facility] Work Phone: 1([phone]) 808-243001-07-2023 Progress note Author Bell Raman [facility] August 29, 2022 10:57am Note Date/Time August 28, 2022 10 :40am [facility] [place] [id number] Hem/Onc Follow Up Note - OP Signed Patient: Terri Newtno MR#: [id number] : 1945 Acct:[id number] Age/Sex: 77 / F Type: REG RCR [...] 1 month, next f/u 4 months with SUBSCRIPTION CLERK or myself. 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 She notes improving energy and [...] Outside Labs: Labs reviewed from 08/25/2022 (from [facility]): Hemoglobin currently low at 8.9, iron saturation [...] process. Impression dictated by: Marcel Grossman Jr., DOlya04/30/2022 4:40 PM Assessment and Plan (1) Iron [...] to assess response to folic acid and [id number] by insurance. Again has anemia 8.9 with iron sat 8.6%--agrees to repeat infusion of Injectafer 750mg IV x 2 weeks (has been getting this about once every 4 months). 4 week f/u CBC and iron studies, then SUBSCRIPTION CLERK f/u with exam and labs in 4 [...] as noted above. 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 Dictated By: Bell Camargo MD DD/ 1040 Signed By: <Electronically signed by MD Bell Camargo> 08/29/[address] 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 She notes improving energy and [...] 11:14 04/30/22 11:14 Outside Labs: Labs from [facility] 05/25/2022: WBC 4400, ANC 2500, Hg 9.6, [...] as noted above. 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 She denied [...] for coordination of care (as documented) and [id number] counseling of patient and/or family. Dictated By: Bell Camargo MD DD/ 1117 Signed By: <Electronically signed by MD Bell Camargo> 05/29/[address] 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 She notes improving energy and [...] Negative for environmental allergies and food allergies. PMF - History Attestation statement: The following information [...] % (Auto) 49.3, Lymph % (Auto) 29.7, [place] % (Auto) 7.3, Eos % (Auto) 11.9, Baso % (Auto) 1.8, Neut # (Auto) 1.7 L, Lymph # (Auto) 1.0, [place] # (Auto) 0.2, Eos # (Auto) 0.4, [...] as noted above. 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 She has [...] for coordination of care (as documented) and [id number] counseling of patient and/or family. Dictated By: Bell Camargo MD DD/ 1100 Signed By: <Electronically signed by MD Bell Camargo> 05/02/[address] 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 She notes improving energy and [...] Negative for environmental allergies and food allergies. [facility] - History Attestation statement: The following information [...] % (Auto) N/A, Lymph % (Auto) N/A, [place] % (Auto) N/A, Eos % (Auto) N/A, Baso % (Auto) N/A, Neut # (Auto) N/A, Lymph # (Auto) N/A, [place] # (Auto) N/A, Eos # (Auto) N/A, [...] as noted above. 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 She has [...] for coordination of care (as documented) and [id number] counseling of patient and/or family. Dictated By: Bell Camargo MD DD/ 9 Signed By: <Electronically signed by MD Bell Camargo> 04/23/22839 [facility] Work Phone: [phone]) 811-213707-15-2022 Progress note Author Bell Camargo [facility] March 06, 2022 2:57pm Note Date/Time March 05, 2022 9:33 am [facility] [facility] [place] [address] Hem/Onc Follow Up Note - OP Signed Patient: Terri Newton MR#: [id number] : 1945 Acct:[id number] Age/Sex: 76 / F Type: REG RCR [...] IV x to doses over 2 weeks. 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 She notes improving energy and [...] + for known AVM and chronic constipation. 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 GENITOURINARY: Negative [...] Negative for environmental allergies and food allergies. [facility] - History Attestation statement: The following information [...] as noted above. 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 She has [...] for coordination of care (as documented) and wioe-[id number] counseling of patient and/or family. Dictated By: Bell Camargo MD DD/ 0933 Signed By: <Electronically signed by MD Bell Camargo> 03/06/22 1455 [facility] Work Phone: [phone] 127-997004-14-2022 Progress note Author Bell Camargo [facility] December 04, 2021 9:33pm Note Date/Time December 04, 2021 10: 56am [facility] at [address] [address] Hem/Onc Follow Up Note - OP Signed Patient: Terri Newton MR#: [id number] : 1945 Acct:[id number] Age/Sex: 76 / F Type: REG RCR Copies to: Jarrell Granados MD Ceasar Dunn, ~ Subjective Date/Time of Service: Date of [...] 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 She notes improving energy and [...] + for known AVM and chronic constipation. 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 GENITOURINARY: Negative for dysuria and [...] Negative for environmental allergies and food allergies. [facility] - History Attestation statement: The following information [...] up parenteral iron. Will f/u with me chelaeassess response to iron and octreotide and determine [...] as noted above. 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 (3) Atrial fibrillation status post cardioversion (4) COPD (chronic obstructive pulmonary disease) (5) Hypertension (6) Hypothyroidism - Time with Patient Time Spent with Patient (Follow Up Visit): Less than 20 minutes - f/u labs and symptoms Coordination of Care & Counseling Time: Greater than 50% of time spent with patient was for coordination of care (as documented) and gpdf-je-peuf counseling of patient and/or family. Dictated By: Bell Camargo MD DD/ 1055 Signed By: <Electronically signed by MD Bell Camargo> 12/04/[address] [facility] Work Phone: [phone]) 795-247303-12-2022 Consult note Author Bell Camargo [facility] October 31, 2021 10:35pm Note Date/Time October 30, 2021 1:2 3pm [facility] [place] [address] Hem/Onc Consult Note - OP Signed Patient: Terri Newton MR#: [id number] : 1945 Acct:[id number] Age/Sex: 76 / F Type: REG RCR Copies to: MD Ceasar Ferrari DO~ HPI Date/Time of Service: Date of [...] parenteral iron if recurrent iron deficiency anemia. [facility] - History Attestation statement: The following information [...] for coordination of care (as documented) and jntt-pa-[id number] counseling of patient and/or family. Dictated By: Bell Camargo MD DD/ 1323 Signed By: <Electronically signed by MD Bell Camargo> 10/31/[address] [facility] Work Phone: [phone]) 367-505903-03-2022 Evaluation note* Encounter Date Diagnosis Assessment Notes Treatment Notes Treatment Clinical Notes Oct, Vascular ectasia of small intestine (ICD-10 - K63.9) REFERRAL TO HEMATOLOGY ( ALREADY IN PLACE) F/U HERE PRN [facility] Other 01-13-2022 Evaluation note* Encounter Date Diagnosis Assessment Notes Treatment Notes Treatment Clinical Notes Aug, Iron deficiency anemia (ICD-10 - D50.9) [facility] Other Evaluation note* Diagnosis Onset Date Resolution Status Epigastric abdominal pain ac [place] Angiodysplasia of gastrointestinal tract chronic Atrial fibrillation status post cardioversion chronic COPD (chronic obstructive pulmonary disease) chronic Hypertension chronic Hypothyroidism chronic Iron deficiency anemia [facility] Work Phone: Evaluation note* Diagnosis Onset Date Resolution Status Angiodysplasia of gastrointestinal tract chronic Atrial fibrillation status post cardioversion chronic COPD (chronic obstructive pulmonary disease) chronic Epigastric abdominal pain [place] Hypertension chronic Hypothyroidism chronic Iron deficiency anemia [facility] Work Phone: Evaluation note* Diagnosis Onset Date Resolution Status Angiodysplasia of gastrointestinal tract chronic Atrial fibrillation status post cardioversion chronic COPD (chronic obstructive pulmonary disease) chronic Epigastric abdominal pain ch ronic Folate deficiency anemia, unspecified chronic Hypertension chronic Hypothyroidism chronic Iron deficiency anemia [facility] Work Phone: Evaluation note* Diagnosis Hypothyroidism, unspecified (CMS/HCC) documented in this encounter [facility] HealthcareEvaluation note* Diagnosis Onset Date Resolution Status Stage 3 chronic kidney disease acute Angiodysplasia of gastrointestinal tract chronic Atrial fibrillation status post cardioversion chronic Iron deficiency anemia [facility] Angiodysplasia of gastrointestinal tract chronic Atrial fibrillation status post cardioversion chronic COPD (chronic obstructive pulmonary disease) chronic Epigastric abdominal pain ch r[place] Folate deficiency anemia, unspecified chronic Hypertension chronic Hypothyroidism chronic Iron deficiency anemia [facility] Work Phone: Evaluation note* Diagnosis Onset Date Resolution Status Angiodysplasia of gastrointestinal tract chronic Atrial fibrillation status post cardioversion chronic COPD (chronic obstructive pulmonary disease) chronic Epigastric abdominal pain ch r[place] Folate deficiency anemia, unspecified chronic Hypertension chronic Hypothyroidism chronic Iron deficiency anemia [facility] Stage 3 chronic kidney disease acute Angiodysplasia of gastrointestinal tract chronic Atrial fibrillation status post cardioversion chronic Iron deficiency anemia [facility] Work Phone: Evaluation note* Diagnosis Paroxysmal atrial fibrillation (CMS/HCC)- Primary Atrial fibrillation Abnormal renal function test Nonspecific abnormal results of kidney function study Primary hypertension (CMS/HCC) Unspecified essential hypertension Nonrheumatic mitral valve regurgitation Acute cystitis without hematuria Allergic dermatitis Contact dermatitis and other eczema, due to unspecified cause Need for influenza vaccination Need for prophylactic vaccination and inoculation against influenza documented in this encounter [facility] HealthcareEvaluation note* Diagnosis Paroxysmal atrial fibrillation (CMS/HCC)- Primary Atrial fibrillation Chronic bilateral low back pain without sciatica COPD with acute exacerbation (CMS/HCC) documented in this encounter [facility] HealthcareHistory general Narrative - Reported* Type Description Date Surgical History cholecystectomy Surgical History hysterectomy [facility] Other History general Narrative - Reported* Type Description Date Medical History HYPERTENSION Surgical History cholecystectomy Surgical History hysterectomy Hospitalization History SEE ABOVE [facility] Other History general Narrative - Reported* Type Description Date Medical History HYPERTENSION Medical History COPD Medical History Chronic Bronchitis Surgical History cholecystectomy Surgical History hysterectomy Hospitalization History SEE ABOVE [facility] Other Progress note Author Bell Camargo [facility] April 23, 2022 8:40am Note Date/Time April 23, 2022 8:30am [facility] at [address] [address] Hem/Onc Follow Up Note - OP Signed Patient: Terri Newton MR#: [id number] : 1945 Acct:[id number] Age/Sex: 77 / F Type: REG RCR [...] 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 She notes improving energy and [...] Negative for environmental allergies and food allergies. [facility] - History Attestation statement: The following information [...] % (Auto) N/A, Lymph % (Auto) N/A, [place] % (Auto) N/A, Eos % (Auto) N/A, Baso % (Auto) N/A, Neut # (Auto) N/A, Lymph # (Auto) N/A, [place] # (Auto) N/A, Eos # (Auto) N/A, [...] as noted above. 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 She has [...] for coordination of care (as documented) and ahhj-dy-ziua counseling of patient and/or family. Dictated By: Bell Camargo MD DD/ Signed By: <Electronically signed by MD Bell Camargo> 04/23/22 0840 [facility] Work Phone: Progress note Author Nusrat Bundy [facility] November 27, 2022 10:37am Note Date/Time November 27, 2022 10:2 9am [facility] [place] [id number] Hem/Onc Follow Up Note - OP Signed Patient: Terri Newton MR#: [id number] : 1945 Acct:[id number] Age/Sex: 77 / F Type: REG RCR [...] 1 month, next f/u 4 months with SUBSCRIPTION CLERK or myself. 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 She notes improving energy and [...] to assess response to folic acid and [id number] by insurance. Again has anemia 8.9 with iron sat 8.6%--agrees to repeat infusion of Injectafer 750mg IV x 2 weeks (has been getting this about once every 4 months). 4 week f/u CBC and iron studies, then SUBSCRIPTION CLERK f/u with exam and labs in 4 [...] as noted above. 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 Dictated By: Nusrat Bundy APRN DD/ 1028 Signed By: <Electronically signed by LESLY Bundy> 11/27/[address] [facility] Work Phone: Progress note Author Bell Camargo [facility] March 10, 2023 4:39pm Note Date/Time March 10, 2023 10:3 3am [facility] at [address] [address] Hem/Onc Follow Up Note - OP Signed Patient: Terri Newton MR#: [id number] : 1945 Acct:[id number] Age/Sex: 77 / F Type: REG RCR [...] since iron infusions but followup labs at [place] show ongoing anemia with hemoglobin 8.1, iron [...] 1 month, next f/u 4 months with SUBSCRIPTION CLERK or myself. 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 She notes improving energy and [...] Negative for environmental allergies and food allergies. [facility] - History Attestation statement: The following information [...] 0.4 mg sublingual Q5-15M PRN Chest Pain 1210/19 [History Confirmed 03/10/23] levothyroxine 88 mcg tablet [...] to assess response to folic acid and [id number] by insurance. Again has anemia 8.9 with iron sat 8.6%--agrees to repeat infusion of Injectafer 750mg IV x 2 weeks (has been getting this about once every 4 months). 4 week f/u CBC and iron studies, then SUBSCRIPTION CLERK f/u with exam and labs in 4 [...] as noted above. 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 Dictated By: Bell Camargo MD DD/ 1032 Signed By: <Electronically signed by MD Bell Camargo> 03/10/[address] [facility] Work Phone: Progress note Author Jessika Alexander [facility] June 10, 2023 10:16am Note Date/Time June 10, 2023 9 :53am [facility] [place] [id number] Hem/Onc Follow Up Note - OP Signed Patient: Terri Newton MR#: [id number] : 1945 Acct:[id number] Age/Sex: 78 / F Type: REG RCR [...] since iron infusions but followup labs at [place] show ongoing anemia with hemoglobin 8.1, iron [...] 1 month, next f/u 4 months with SUBSCRIPTION CLERK or myself. 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 She notes improving energy and [...] Negative for environmental allergies and food allergies. [facility] - Medical History Medical History: Medical History [...] to assess response to folic acid and [id number] by insurance. Again has anemia 8.9 with iron sat 8.6%--agrees to repeat infusion of Injectafer 750mg IV x 2 weeks (has been getting this about once every 4 months). 4 week f/u CBC and iron studies, then SUBSCRIPTION CLERK f/u with exam and labs in 4 [...] as noted above. 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 Dictated By: Jessika Alexander APRN DD/ 0952 Signed By: <Electronically signed by LESLY Alexander> 06/10/23 1016 [facility] Work Phone: Summary Purpose Family History No [...] Diabetes mellitus Unknown sister Malignant neoplasm Unknown Relationship Condition Age at Onset Recorded Date/T emerald brother Fibromyalgia Unknown Heart disease Unknown Malignant neoplasm of bone Unknown father Heart disease Unknown Myocardial infarction Unknown sister Cerebrovascular accident (CVA) Unknown mother Suicide Unknown brother Malignant neoplasm Unknown Unknown family member Family history of other condition Unknow n mother Unknown son Diabetes mellitus Unknown sister Malignant neoplasm [...] anemia Chief Complaint Waiting In Car - Upp er Respiratory Iron Deficiency Anemia Reason for [...] anemia Chief Complaint Iron Deficiency Anem ia 4 month follow up visit go over labs Reason for Visit Angiodysplasia of ga strointestinal tract Atrial fibrillation status post cardioversion COPD (chronic obstructive pulmonary disease) Epigastric abdominal pain Folate deficiency anemia, unspecified Hypertension Hypothyroidism Iron deficiency anemia Stage 3 chronic kidney disease Angiodysplasia of gastrointestinal tract Atrial fibrillation status post cardioversion Iron deficiency anemia Additional Source Comments INFORMATION SOURCE (unrecogn ized section and content) DATE CREATED AUTHOR 07/02/2019 [facility] DATE CREATED AUTHOR AUTHOR'S ORGANIZ ATION 05/31/2020 [facility] DATE CREATED AUTHOR AUTHOR'S ORGANIZ ATION 12/04/2022 [facility] DATE CREATED AUTHOR AUTHOR'S ORGANIZ ATION 03/13/2024 [facility] DATE CREATED AUTHOR AUTHOR'S ORGANIZ ATION 08/09/2024 [facility] DATE CREATED AUTHOR AUTHOR'S ORGANIZ ATION 08/12/2024 [facility] REASON FOR VISIT (unrecogniz ed section and content) Reason Comments Med Refill ROBAXIN--DM ELROY URI Reason Comments Atrial Fibrillation Hypertension UTI Rash Reason Comments Med Refill SINUS CONGESTION, COUGH, [...] MD Primary Care Provider Active Team Status: Active Member Role Status Dates Bell Camargo MD Attending Provider Active Start: May 11, 2024 Jarrell Granados MD Referring Provider Active S tart: May 11, 2024 Jayy Lomas II MD Primary Care Provider Active Start: May 11, 2024 Team Status: Inactive Member Role Status Dates Jayy Lomas II MD Primary Care Provider Active Start: May 11, 2024 End: May 11, 2024 Bell Camargo MD Attending Provider Active Start: May 11, 2024 End: May 11, 2024 Team Status: Active Member Role Status Dates Ceasar Dunn DO Primary Care Provider Active Team Status: Active Member Role Status Dates Ceasar Dunn DO Primary Care Provider Active Bell Camargo MD Attending Provider Active Jarrell Granados MD Referring Provider Active Team Status: Inactive Member Role Status Dates Criss Nunez RN Attending Provider Active Start : August 08, 2023 End: August 08, 2023 Team Status: Inactive Member Role Status Dates Nusrat Bundy APRN Attending Provider Acti ve Start: [...] Care Provider Active Start: September 28, 2023 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 Specialty Start Date End Date Shaikh [...] January 07, 2024 End: January 07, 2024 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 Specialty Start Date End Date Shaikh Reece MD [address] [place] [address] PCP - General Internal Medicine 03/09/23 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 Specialty Start Date End Date Shaikh Reece MD [address] [place] [phone] PCP - General Internal Medicine 03/09/23 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 Start Date End Date Shaikh Reece MD [address] [place] [phone] PCP - General Internal Medicine 03/09/23 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 [facility] [employer] [facility]. provides no warranty or guarantee of the accuracy or completeness of information in this document.
--- NOTE | 2024-08-13 08:56 | XR_ITS ---
The [address] [address] Patient Name: TERRI NEWTON MRN: [id number] date: 1945 Sex: F Assigned Patient Location: ER Current Patient Location: ER Accession/Order Number: [id number] Exam Date: 08/13/2024 09:06 Report Date: 08/13/2024 09:26 At the request of: MONTRELL GAONA Procedure: XR chest 1V EXAM: XR chest 1V INDICATION: Shortness of breath. COMPARISON: Chest x-ray 05/05/2023. TECHNIQUE: Single frontal view of the chest FINDINGS: Borderline enlargement of the cardiac silhouette. Dense mitral annulus calcifications. Normal pulmonary vasculature. No acute infiltrative process. No pleural effusion or pneumothorax. No acute osseous abnormality. XR/XR chest 1V IMPRESSION: No acute cardiopulmonary process. Electronically authenticated by: LILIA JOSHI Date: 08/13/2024 09:26
--- NOTE | 2024-08-13 08:56 | ECG_ITS ---
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
--- NOTE | 2024-08-13 08:57 | PC.NURSE ---
PT STATES URI SX LAST FEW DAYS. CHEST HURTS ONLY WHEN SHE COUGHS. RECENTLY STARTED SMOKING AGAIN -- H/O HOME O2 NEEDED. WAS PPLACED ON O2 SHE WAS 88% ON RA. DID WALK BACK TO ROOM.
[2024-08-13 09:01] LABS: Basophils Percent Auto 0.6 % (0.2-2.0); Eosinophils Absolute Auto 0.1 10^3/uL (0.0-0.7); Eosinophils Percent Auto 1.4 % (0.9-7.0); Hematocrit 26.2 % (36.0-48.0); Hemoglobin 8.1 g/dL (12.0-16.0); Immature Granulocytes Abs Auto 0.09 10^3/uL (0.00-0.03); Immature Granulocytes Pct Auto 1.3 % (0.0-0.5); Lymphocytes Percent Auto 14.8 % (20.5-60.0); Mean Corpuscular HGB Conc 30.9 g/dL (29.9-35.2); Mean Corpuscular Hemoglobin 28.6 pg (26.7-34.0); Mean Corpuscular Volume 92.6 fL (81.0-99.0); Mean Platelet Volume 9.2 fL (9.5-13.5); Monocytes Absolute Auto 0.6 10^3/uL (0.3-0.8); Monocytes Percent Auto 8.4 % (1.7-12.0); Neutrophils Absolute Auto 5.2 10^3/uL (1.4-6.5); Neutrophils Percent Auto 73.5 % (43.0-75.0); Platelet Count 405 10^3/uL (150-450); Red Blood Count 2.83 10^6/uL (4.20-5.40); Red Cell Distribution Width 15.8 % (11.0-15.0)
[2024-08-13 09:17] LABS: INR 1.01; Prothrombin Time 10.7 sec (9.0-11.6)
[2024-08-13 09:23] LABS: Alanine Aminotransferase 12 U/L (14-59); Albumin Globulin Ratio 0.7; Alkaline Phosphatase 91 U/L (46-116); Anion Gap 13.1; Aspartate Amino Transferase 15 U/L (15-37); BUN Creatinine Ratio 19.5; Bilirubin Total 0.3 mg/dL (0.2-1.0); Calcium 8.8 mg/dL (8.5-10.1); Carbon Dioxide 29.9 mmol/L (21.0-32.0); Chloride 105 mmol/L (98-107); Estimated GFR (African America 31 (>=60 mL/min/1.73m^2); Estimated GFR (Non-African Ame 26 (>=60 mL/min/1.73m^2); Globulin 4.1 g/dL; Glucose 90 mg/dL (74-106); Sodium 143 mmol/L (136-145); Total Protein 7.1 g/dL (6.4-8.2)
[2024-08-13 09:25] LABS: Troponin I High Sensitivity 1910.7 pg/mL (4.0-51.3)
[2024-08-13 09:27] LABS: Internal Control Within Normal Limits; SARS-CoV-2 Ag NEGATIVE (NEGATIVE)
[2024-08-13] MEDS: IPRATROPIUM/ALBUTEROL SULFATE 3 ML AMPUL.NEB IH (09:27)
[2024-08-13] MEDS: METHYLPREDNISOLONE SOD SUCC PF 125 MG/2 ML VIAL IVP (10:06)
[2024-08-13] MEDS: ASPIRIN 81 MG TAB.CHEW 324 MG PO (10:06)
[2024-08-13 10:32] LABS: Partial Thromboplastin Time 28.3 sec (22.3-36.2)
[2024-08-13 10:39] LABS: Troponin I High Sensitivity 1845.1 pg/mL (4.0-51.3)
--- NOTE | 2024-08-13 11:20 | ED.CHESTPAI1 ---
HPI - Chest Pain General Chief Complaint: Shortness of Breath/Dyspnea Stated Complaint: CHEST PAIN, DIARRHEA, VOMITING Time Seen by Provider: 08/13/24 08:55 Source: patient Mode of arrival: walk-in Limitations: no limitations History of Present Illness HPI narrative: The patient is a 79-year-old female with history of COPD and is a smoker of 1 pack of cigarette daily, patient has a been having shortness of breath for the last week at least she was already evaluated by her primary care doctor and not responding to the steroid and antibiotic she was provided with, as a baseline the patient uses 2 L of oxygen The patient denies any leg swelling any chest pain at any time She also have a nonproductive cough Related Data Home Medications ?Medication ?Instructions ?Recorded ?Confirmed amlodipine 5 mg tablet 5 mg PO DAILY 08/13/24 08/13/24 cetirizine 10 mg tablet 10 mg PO DAILY 08/13/24 08/13/24 levofloxacin 500 mg tablet 500 mg PO Q24H 08/13/24 08/13/24 levothyroxine 112 mcg tablet 112 mcg PO DAILY 08/13/24 08/13/24 methocarbamol 500 mg tablet 500 mg PO Q8H PRN muscle pain 08/13/24 08/13/24 propafenone 150 mg tablet 150 mg PO Q12H 08/13/24 08/13/24 Allergies Allergy/AdvReac Type Severity Reaction Status Date / Time No Known Drug Allergies Allergy Verified 08/13/24 08:42 Review of Systems ROS Status of ROS 10 or more systems reviewed and unremarkable except as noted in history and below [facility] Medical History (Updated 08/13/24 @ 13:23 by Alma Magallon RN) Atrial fibrillation ?I48.91 - Unspecified atrial fibrillation (ICD-10) Hypothyroid ?E03.9 - Hypothyroidism, unspecified (ICD-10) Hypertension ?I10 - Essential (primary) hypertension (ICD-10) Social History Little interest or pleasure in doing things: not at all Feeling down, depressed, or hopeless: not at all Exam Narrative Exam Narrative: Nurses notes and vital signs reviewed and patient is not hypoxic. General: Well-appearing and in no apparent distress. Skin: Warm, dry, no pallor noted. No rash. Head: Normocephalic, atraumatic. Neck: Supple, non-tender. Eye: Pupils are equal, round and EOMI. No scleral icterus. Ears, Nose, Mouth, and Throat: TM are clear, no nasal mucosal hypertrophy. Oral mucosa is moist, no posterior oropharynx erythema, uvula is mid-line Cardiovascular: Regular Rate and Rhythm without murmur, gallop or rub. Respiratory: Bilateral expiratory lung wheezes and rhonchi heard in both lung michele Back: No midline thoracic or lumbar vertebral tenderness. No CVA tenderness Musculoskeletal: normal ROM, no calf or popliteal tenderness, no lower extremity edema/swelling GI: Abdomen is soft, non-distended. Normal bowel sounds. No masses appreciated. No tenderness to palpation. No rebound, guarding, or rigidity noted. Neurological: A&O x4. No cranial nerve dysfunction observed. No truncal ataxia. Moves all extremities. Sensation intact. Psychiatric: Cooperative and interactive. Normal mood and affect. Constitutional Vital Signs, click to edit/add: Last Vital Signs Temp 97.6 F 08/13/24 08:42 Pulse 67 08/13/24 12:31 Resp 19 08/13/24 12:31 BP 141/51 08/13/24 12:31 Pulse Ox 93 L 08/13/24 12:49 O2 Del Method Nasal Cannula 08/13/24 09:29 O2 Flow Rate 2 08/13/24 12:49 Course Vital Signs Vital signs: Vital Signs Blood Pressure 132/53 08/13/24 08:36 Temperature 97.6 F 08/13/24 08:42 Pulse Rate 67 08/13/24 12:31 Respiratory Rate 19 08/13/24 12:31 Blood Pressure 141/51 08/13/24 12:31 Pulse Oximetry 93 L 08/13/24 12:49 Oxygen Delivery Method Nasal Cannula 08/13/24 09:29 Oxygen Delivery Flow Rate 2 08/13/24 12:49 MDM - Chest Pain MDM Narrative Medical decision making narrative: The patient EKG upon arrival showing sinus rhythm with a heart rate of [address] elevation or depression The patient CBC shows no leukocytosis chemistry shows that her chronic kidney disease with a GFR 26 The patient is saturating 97% on her 2 L nasal cannula The patient troponin is around 2000 and repeated test gave a similar result The patient have a history of chronic GI bleed with a black stool and that she gets iron infusions outpatient, the patient BNP pulse was elevated around 1999 The patient case was discussed with Dr. Bernardo from the cardiology service and he suggested that the patient might be having a PE that we cannot rule out with doing a CT angio because she have GFR of 26 and we will worsen her kidney function The patient will need a VQ scan in case of the VQ scan is positive she mostly will need IVC filter if the negative VQ scan the patient will definitely need more cardiac workup and possible cardiac cath the patient will be transferred to [facility] and right now we are holding on heparin Patient is stable have no acute complaint at the moment The patient case was discussed with the nurse practitioner from the admitting service and [facility] and Patient D-dimer is elevated and there is a high possibility that she had a PE Right now the patient is stable awaiting to be transferred Lab Data Labs: Lab Results 08/13/24 08/13/24 08/13/24 Range/Units 08:50 09:05 10:03 WBC 7.0 (4.0-11.0) 10^3/uL RBC 2.83 L (4.20-5.40) 10^6/uL Hgb 8.1 L (12.0-16.0) g/dL Hct 26.2 L (36.0-48.0) % MCV 92.6 (81.0-99.0) fL MCH 28.6 (26.7-34.0) pg MCHC 30.9 (29.9-35.2) g/dL RDW 15.8 H (11.0-15.0) % Plt Count 405 (150-450) 10^3/uL MPV 9.2 L (9.5-13.5) fL Neut % (Auto) 73.5 (43.0-75.0) % Lymph % (Auto) 14.8 L (20.5-60.0) % [place] % (Auto) 8.4 (1.7-12.0) % Eos % (Auto) 1.4 (0.9-7.0) % Baso % (Auto) 0.6 (0.2-2.0) % Neut # (Auto) 5.2 (1.4-6.5) 10^3/uL Lymph # (Auto) 1.0 L (1.2-3.8) 10^3/uL [place] # (Auto) 0.6 (0.3-0.8) 10^3/uL Eos # (Auto) 0.1 (0.0-0.7) 10^3/uL Baso # (Auto) 0.0 (0.0-0.1) 10^3/uL Abs Immat Gran (auto) 0.09 H (0.00-0.03) 10^3/uL Imm/Tot Granulo (auto) 1.3 H (0.0-0.5) % PT 10.7 (9.0-11.6) sec INR 1.01 APTT 28.3 (22.3-36.2) sec D-Dimer 1.02 H* (<=0.59) mg/L FEU Sodium 143 (136-145) mmol/L Potassium 5.0 (3.5-5.1) mmol/L Chloride 105 (98-107) mmol/L Carbon Dioxide 29.9 (21.0-32.0) mmol/L Anion Gap 13.1 BUN 37.0 H (7.0-18.0) mg/dL Creatinine 1.90 H (0.55-1.02) mg/dL Est GFR ( Amer) 31 L (>=60 mL/min/1.73m^2) Est GFR (Non-Af Amer) 26 L (>=60 mL/min/1.73m^2) BUN/Creatinine Ratio 19.5 Glucose 90 (74-106) mg/dL Calcium 8.8 (8.5-10.1) mg/dL Total Bilirubin 0.3 (0.2-1.0) mg/dL AST 15 (15-37) U/L ALT 12 L (14-59) U/L Alkaline Phosphatase 91 (46-116) U/L Troponin I High Sens 1910.7 H* 1845.1 H* (4.0-51.3) pg/mL NT-Pro-B Natriuret Pep 2424.0 H* (<=1800.0) pg/mL Total Protein 7.1 (6.4-8.2) g/dL Albumin 3.0 L (3.4-5.0) g/dL Globulin 4.1 g/dL Albumin/Globulin Ratio 0.7 SARS-CoV-2 Ag (CV2AG) Negative (NEGATIVE) Discharge Plan Discharge Chief Complaint: Shortness of Breath/Dyspnea Clinical Impression: Elevated troponin, Non-ST elevation IA (NSTEMI), Breath shortness Prescriptions / Home Meds: No Action amlodipine 5 mg tablet 5 mg PO DAILY cetirizine 10 mg tablet 10 mg PO DAILY levofloxacin 500 mg tablet 500 mg PO Q24H Patient Comments: 08/07/24-08/13/24 levothyroxine 112 mcg tablet 112 mcg PO DAILY methocarbamol 500 mg tablet 500 mg PO Q8H PRN (Reason: muscle pain) propafenone 150 mg tablet 150 mg PO Q12H Print Language: Guyanese Referrals: MARLEN CAVAZOS [Primary Care Provider] - 1 week
[2024-08-13 12:29] LABS: D Dimer 1.02 mg/L FEU (<=0.59)
== END 2024-08-13 14:47 | disposition short-term general hospital (02) ==
PROVIDERS: Emergency Provider Emergency Medicine; PCP Internal Medicine
DX: I21.4 Non-ST elevation (NSTEMI) myocardial infarction (principal); R06.02 Shortness of breath; F17.210 Nicotine dependence, cigarettes, uncomplicated; Z99.81 Dependence on supplemental oxygen; N18.9 Chronic kidney disease, unspecified; R79.89 Other specified abnormal findings of blood chemistry; J44.9 Chronic obstructive pulmonary disease, unspecified
CPT/HCPCS: 36415; 71045; 80053; 83880; 84484; 85025; 85378; 85610; 85730; 87811; 93005; 94640; 96374; 99285; J2919

== ENCOUNTER 2025-05-02 18:25 | Emergency (ER) | payer MEDICARE, OTHER, SELFPAY ==
--- OUTSIDE RECORDS SUMMARY | 2025-05-02 18:37 | XMS_ITS | CCD ---
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 Name Role Phone CarlosAlem aquino Unavailable Jarrell Granados Unavailable DO Ceasar Dunn Primary Care Provider MD Bell Camargo Attending Provider MD Jarrell Granados Referring Provider DO Ceasar Dunn Primary Care Provider MD Bell Camargo Attending Provider MD Jarrell Granados Referring Provider Ceasar Dunn Unavailable Unavailable Unavailable DO Ceasar Dunn Primary Care Provider MD Bell Camargo Attending Provider [phone] MD Jarrell Granados Referring Provider DO Ceasar Dunn Primary Care Provider MD Bell Camargo Attending Provider [phone] MD Jarrell Granados Referring Provider [phone] DR BELL CAMARGO Attending Unavailable RAMAN, DR [...] DR BELL Maldonado Attending Unavailable RAMAN, DR EBLL Maldonado Admitting Unavailable RAMAN, DR BELL Maldonado Consulting Unavailable Markell, DO Mcdonough Primary Care Provider MD Bell Camargo Attending Provider [phone] MD Jarrell Granados Referring Provider [phone] DO Ceasar Dunn Primary Care Provider MD Bell Camargo Attending Provider MD Jarrell Granados Referring Provider DO Ceasar Dunn Primary Care Provider [phone] MD Bell Camargo Attending Provider MD Jarrell Granados Referring Provider Criss Nunez Unavailable Tamar Hernandez Unavailable MD Bell Camargo Attending Provider MD Jarrell Granados Referring Provider IRINA Lomas Primary Care Provider Shaikh Reece MD Primary Care Provider MD Bell Camargo Attending Provider [phone] MD Jarrell Granados Referring Provider Abebe, II Jayy Primary Care Provider MD Bell Camargo Attending Provider [phone] MD Jarrell Granados Referring Provider Abebe, IRINA Hope Primary Care Provider Chevy LUBIN, Primary Care Provider [phone] Jayy Lomas MD Primary Care Provider GREG, SAMAR Referring Unavailable GERALD LORENZO Attending Unavailable FABIO HERNANDEZ Referring Unavailable HORANI, GREY Admitting Unavailable OLIVAREZ, JAMES Attending Unavailable DIAB, SHEILA Referring Unavailable GREG, SAMAR Referring Unavailable PIRKL, CARMEN Referring Unavailable GIGI CASON Attending Unavailable MOUKAKARIN, GORDON Attending Unavailable MOUKARBEL, GORDON Attending Unavailable SUSANNAJEWEL RICHMOND Referring Unavailable PIRKL, CARMEN Referring Unavailable Bell Camargo MD Attending Provider Jarrell Granados MD Referring Provider [phone] Jayy Lomas II Primary Care Provider JAYY LOMAS Attending Unavailable JAYY LOMAS Attending Unavailable JAYY LOMAS Attending Unavailable JAYY LOMAS Attending Unavailable JAYY LOMAS Attending Unavailable JAYY LOMAS Attending Unavailable JAYY LOMAS Attending Unavailable GAY KOVACS Attending Unavailable Jayy Lomas Primary Care Unavailable Bell Camargo Admitting Unavailable Bell Camargo Attending Unavailable Jarrell Granados Referring Unavailable Allergies Allergy Classification Reported Allergen(s) Allergy Type Date of Onset Reaction(s) Facility (4 sources) Flecainide; Translations: [Flecainide Acetate TABS] Drug Allergy Hives, Dizziness [facility] [facility] DO Work Phone: Medications Current [...] needed Inhalation every 6 hrs Active amLODIPine 10 mg oral tablet (20 sources) Dihydropyridine Calcium Channel Cameron Start: 08-19-2024 take 5 mg by mouth once daily amLODIPine (Norvasc) 10 MG tablet Take 5 mg by mouth Daily 08/19/2024 Active Start: 08-19-2024 take 1 tablet by meagan th once daily amLODIPine (Norvasc) 10 MG tablet Take 10 mg by mouth Daily 08/19/2024 Active Start: 06-25-2023 End: 08-25-2024 take 1 tablet by mouth in the morning amLODIPine (Norvasc) 5 MG tablet Take 5 mg by mouth in the morning. 06/25/2023 08/25/2024 Discontinued (Dose adjustment) Start: 09-15-2021 End: 06-10-2023 take 1 tablet by mouth once daily Amlodipine 5 mg tablet Discontinued 5 MG PO Daily September 15, [...] Jul, Not-Taking/PRN benzonatate 100 mg oral capsule (15 sources) Non-narcotic Antitussive Start: 08-07-2024 take 1 capsule by mouth three times daily as needed for cough benzonatate (Tessalon Perles) 100 MG capsule Indications: COPD with acute exacerbation (CMS/HCC) Take 1 capsule (100 mg) by mouth 3 (three) times a day as needed for cough Do not crush or chew. 30 capsule 1 08/07/2024 Active cetirizine hydrochloride 10 mg oral tablet (20 sources) Histamine-1 Receptor Antagonist Start: 01-24-2024 End: 01-01-2026 take 1 tablet by mouth once daily cetirizine (ZyrTEC) 10 MG tablet Indications: Allergic urticaria Take 1 tablet (10 mg) by mouth Daily 30 tablet 11 01/01/2025 01/01/2026 Active doxycycline hyclate 100 mg oral capsule (1 source) Tetracycline-class Drug Start: 09-18-2023 take 1 capsule by mouth every twelve hours Doxycycline Hyclate 100 MG 1 capsule Orally Twice a day for 10 day(s) Aug, Active 60 actuat fluticasone propionate 0.25 mg/actuat / salmeterol 0.05 mg/actuat dry powder inhaler (14 sources) Corticosteroid, beta2-Adrenergic Agonist Start: 08-25-2024 End: 09-24-2024 take 1 puff(s) by inhalation once daily Fluticasone-Salme terol 250-50 MCG/ACT aerosol powder Indications: Panlobular emphysema (CMS/HCC) Inhale 1 puff Daily 1 each 11 08/25/2024 Active Start: 08-19-2024 End: 08-25-2024 take 1 puff(s) by inhalation in the morning Fluticasone-Salmeterol 250-50 MCG/ACT aerosol powder Inhale 1 puff in the morning and 1 puff in the evening. 08/19/2024 08/25/2024 Discontinued (Reorder) furosemide 20 mg oral tablet (20 sources) Loop Diuretic Start: 09-21-2024 End: 09-21-2025 take 1 tablet by mouth every other day furosemide (Lasix) 20 MG tablet Take 20 mg by mouth every other day 09/21/2024 09/21/2025 Active Start: 06-25-2023 End: 08-25-2024 take 1 tablet by mouth in the morning furosemide (Lasix) 40 MG tablet Take 40 mg by mouth in the morning. 06/25/2023 08/25/2024 Discontinued Start: 09-15-2021 Furosemide 40 mg tablet Active 20 MG PO Daily September 15, 2021 1:00am Start: 09-15-2021 take 20 mg by mouth once daily Furosemide Active 20 MG PO Daily September 15, 2021 1:00am levoFLOXacin 500 mg oral tablet (13 sources) Quinolone Antimicrobial Start: 08-07-2024 End: 08-14-2024 take 1 tablet by mouth once daily levoFLOXacin (Levaquin) 500 MG tablet Indications: COPD with acute exacerbation (CMS/HCC) Take 1 tablet (500 mg) by mouth Daily for 7 days 7 tablet 08/07/2024 08/14/2024 Active Start: 06-01-2019 End: 06-04-2019 take 1 tablet by mouth once daily Levofloxacin 500 mg tablet Discontinued 1 TAB PO Daily June 01, 2019 12:00am June 04, 2019 11:45am levothyroxine sodium 0.112 mg oral tablet (20 sources) l-Thyroxine Start: 10-04-2024 take 1 tablet by mouth in the morning levothyroxine (Synthroid, Levoxyl) 112 MCG tablet Indications: Hypothyroidism, unspecified Take 1 tablet (112 mcg) by mouth in the morning. 100 tablet 3 10/04/2024 Active Start: 06-25-2023 End: 03-25-2024 take 1 tablet by mouth in the morning levothyroxine (Synthroid, Levoxyl) 112 MCG tablet Indications: Hypothyroidism, unspecified (CMS/HCC) TAKE 1 TABLET BY MOUTH IN THE MORNING 90 tablet 1 03/14/2024 Active Start: 04-14-2021 take 1 tablet by meagan th once daily Levothyroxine 88 mcg Tablet Active 88 MCG PO Daily April 14, 2021 12:00am Start: 07-28-2019 End: 04-14-2021 Levothyroxine (Synthroid) 75 mcg tablet Discontinued 88 MCG PO DAILY@0330 July 28, 2019 10:16am April 14, 2021 3:39pm Start: 06-04-2019 End: 07-28-2019 take 1 tablet by mouth once daily Levothyroxine (Synthroid) 75 mcg Tablet Discontinued 75 MCG PO DAILY@0630 30 June 04, 2019 12:00am July 28, 2019 10:17am Start: 06-01-2019 End: 06-04-2019 take 1 tablet by mouth once daily Levothyroxine 100 mcg tablet Discontinued 1 TAB PO Daily June 01, 2019 12:00am June 04, 2019 11:45am take 1 tablet by meagan th once daily in the morning Levothyroxine Sodium 88 MCG 1 tablet in the morning on an empty stomach Orally Once a day Active mecobalamin 1 mg chewable tablet (1 source) Start: 12-18-2024 take 1 tablet by mouth once daily Mecobalamin (Vitamin B12) 1,000 mcg tablet,chewable Active 1000 MCG PO Daily December 18, 2024 12:00am methocarbamol 500 mg oral tablet (20 sources) Muscle Relaxant Start: 08-07-2024 End: 08-25-2024 take 1 tablet by mouth every eight hours for muscle spasms methocarbamol (Robaxin) 500 MG tablet Indications: Chronic bilateral low back pain without sciatica Take 1 tablet (500 mg) by mouth every 8 (eight) hours if needed for muscle spasms 30 tablet 1 08/07/2024 08/25/2024 Discontinued Start: 06-25-2023 End: 08-07-2024 take 1 tablet by mouth every twenty-four hours as needed methocarbamol (Robaxin) 500 MG tablet Take 500 mg by mouth Daily as needed 06/25/2023 08/07/2024 Discontinued (Reorder) Start: 09-15-2021 take 1 tablet by meagan th twice daily as needed for muscle spasms Methocarbamol 500 mg Tablet Active 500 MG PO Twice daily as needed for Muscle Spasm September 15, 2021 1:00am Robaxin 500 MG T ABS TAKE 1 TABLET 3 TIMES DAILY. Quantity: 0 Refills: 0 Ordered: 10-Jun-2021 DO Active methylPREDNISolone 4 mg oral tablet (14 sources) Corticosteroid Start: 08-08-2023 Medrol (Misbah) 4 MG as directed Orally for daily dose take half with breakfast half with dinner for 6 days Aug, Active Start: 06-01-2019 End: 06-04-2019 Methylprednisolone 4 mg tabl ets,dose pack Discontinued 0 TAB PO Use as Directed June 01, 2019 12:00am June 04, 2019 11:45am Please contact the information source for Taper Schedule details. Start: 06-01-2019 End: 06-04-2019 Methylprednisolone Discontin ued [...] TAB PO Daily June 01, 2019 12:00am Multivitamin Tablet (1 source) Start: 06-01-2019 take 1 tablet by mouth once daily Multivitamin Tablet Active 1 TAB PO Daily June 01, 2019 12:00am nitroglycerin 0.4 mg sublingual tablet (11 sources) Nitrate Vasodilator Start: 08-01-2019 Nitroglycerin 0.4 mg Tablet, Sublingual Active 0.4 MG SUBLINGUAL every 5 to 15 minutes as needed for Chest Pain August 01, 2019 1:00am pantoprazole 40 mg delayed release oral tablet (7 sources) Proton Pump Inhibitor Start: 08-19-2024 End: 10-13-2024 take 1 tablet by mouth in the morning pantoprazole (ProtoNix) 40 MG EC tablet Take 40 mg by mouth in the morning and 40 mg in the evening. Take before meals. 08/19/2024 10/13/2024 Active propafenone hydrochloride 150 mg oral tablet (20 [...] Active traMADol hydrochloride 50 mg oral tablet (11 sources) Opioid Agonist Start: 10-30-2021 take 1 tablet by mouth twice daily as needed for pain Tramadol 50 mg Tablet Active 50 MG PO Twice daily as needed for Back Pain October 30, 2021 1:00am 1 ml triamcinolone [...] Sig (Original) apixaban 5 mg oral tablet (15 sources) Factor Xa Inhibitor Start: 04-14-2021 End: [...] 1 tablet by mouth once daily Aspirin 81 mg Tablet,Chewable Discontinued 1 TAB PO Daily 0 June 04, 2019 11:44am July 28, 2019 10:17am Start: 06-04-2019 End: 07-28-2019 take 1 tablet [...] tablet by mouth every other day Aspirin 81 mg Tablet,Chewable Discontinued 1 TAB PO every other day June 01, 2019 12:00am June 04, 2019 11:45am Start: 06-01-2019 End: 06-04-2019 take 1 tablet by mouth every other day Aspirin Discontinued 1 TAB PO every other day May 31, 2019 11:00pm June 04, 2019 10:45am Start: 06-01-2019 End: 06-04-2019 take 1 tablet by mouth every other day Aspirin Discontinued 1 TAB PO every other day June 01, 2019 12:00am June 04, 2019 11:45am cefdinir 300 mg oral capsule (11 sources) Cephalosporin Antibacterial Start: 06-04-2019 End: 07-28-2019 take 1 capsule by mouth twice daily Cefdinir 300 mg capsule Discontinued 300 MG PO Twice daily 05 27June 04, 2019 12:00am July 28, 2019 9:43am cephalexin 500 mg oral capsule (2 sources) Cephalosporin Antibacterial Start: 01-07-2024 End: 05-11-2024 take 1 capsule by mouth three times daily Cephalexin 500 mg capsule Discontinued 500 MG PO Three times daily 21 January 07, 2024 12:00am May 11, 2024 9:58am [...] Channel Cameron Start: 07-28-2019 End: 04-14-2021 take 1 capsule by mouth once daily Diltiazem Hcl 120 mg capsule,extended release 24hr Discontinued 120 MG PO Daily July 28, 2019 1:00am April 14, 2021 3:39pm Start: 06-02-2019 End: 07-28-2019 take 1 capsule by mouth once daily Diltiazem Hcl 180 mg Capsule,Extended Release 24hr Discontinued 180 MG PO Daily June 02, 2019 12:00am July 28, 2019 9:44am erythromycin 0.005 mg/mg ophthalmic ointment (2 sources) Macrolide, Macrolide Antimicrobial Start: 01-07-2024 End: 12-18-2024 Erythromycin 5 mg/gram (0.5 %) ointment Discontinued 1 APPLIC OPHTHALMIC Four times daily 3.5 7 January 07, 2024 12:00am December 18, 2024 2:58pm to left eye ferrous sulfate 325 mg delayed release oral tablet (16 sources) Start: 09-15-2021 End: 04-23-2022 take 1 tablet by mouth once daily Ferrous Sulfate 325 mg (65 mg iron) tablet,delayed release (DR/EC) Discontinued 325 MG PO Daily September 15, 2021 1:00am April 23, 2022 8:06am take 1 tablet by mouth once [place] FeroSul 325 (65 Fe) MG TAKE 1 TABLET BY MOUTH DAILY Oral for 30 Active folic acid 1 mg oral tablet (20 sources) Start: 05-28-2022 End: 01-06-2024 take 3 tablets by mouth once daily Folic Acid 1 mg Tablet Discontinued 3 MG PO Daily 90 30 October 6th, 2022 11:31am January 06, 2024 9:57am Start: 05-28-2022 End: 01-06-2024 take 3 mg by mouth once daily Folic Acid Discontinued 3 MG PO Daily 90 May 28, 2022 11:31am January 06, 2024 9:57am Start: 05-28-2022 End: 05-28-2022 take 1 tablet by mouth once daily Folic Acid 1 mg Tablet Discontinued 1 MG PO Daily May 28, 2022 12:00am May 28, 2022 11:32am Folic Acid Activ e folic acid 0.4 mg / vitamin b12 0.5 mg oral tablet (10 sources) Vitamin B12 Start: 05-28-2022 End: 12-18-2024 take 1 tablet by mouth once daily Vitamin J73-Aulnc Acid 500-400 mcg Tablet Discontinued 1 TAB PO Daily May 28, 2022 12:00am December 18, 2024 2:58pm administer with a meal 12 hr guaiFENesin 600 mg extended release oral tablet (11 sources) Start: 06-04-2019 End: 07-28-2019 take 1 [...] Active ipratropium bromide 0.2 mg/ml inhalation solution (11 sources) Anticholinergic Start: 06-04-2019 End: 07-28-2019 take 0.5 mg by inhalation four times daily as needed for wheezing Ipratropium [place] 0.02 % Solution Discontinued 0.5 MG INHALATION Four times daily - Respiratory as needed for shortness of breath or wheezing June 04, 2019 12:22pm July 28, 2019 9:44am Start: 06-04-2019 End: 07-28-2019 take 0.5 mg by inhalation four times daily Ipratropium [place] Discontinued 0.5 MG INHALATION Four times daily - Respiratory 150 June 04, 2019 12:22pm July 28, 2019 9:44am levalbuterol 0.417 mg/ml inhalation solution (11 sources) beta2-Adrenergic Agonist Start: 06-04-2019 End: 07-28-2019 take 1.25 mg by inhalation four times daily Levalbuterol Hcl 1.25 mg/3 mL Solution For Nebulization Discontinued 1.25 MG INHALATION Four times daily - Respiratory 90 June 04, 2019 12:00am July 28, 2019 9:44am 24 hr metoprolol succinate 50 mg extended release oral tablet (20 sources) beta-Adrenergic Cameron Start: 04-14-2021 End: 09-15-2021 Metoprolol Succinate 50 mg tablet extended release 24 hr Discontinued 75 MG PO Daily April 14, 2021 3:39pm September 15, 2021 10:30am Start: 04-14-2021 End: 09-15-2021 take 75 mg by mouth once daily Metoprolol Succinate Di scontinued 75 MG PO Daily April 14, 2021 3:39pm September 15, 2021 10:30am Start: 06-04-2019 End: 04-14-2021 take 1 tablet by mouth once daily Metoprolol Succinate 50 mg Tablet Extended Release 24 Hr Discontinued 50 MG PO Daily June 04, 2019 12:00am April 14, 2021 3:39pm Start: 06-01-2019 End: 06-04-2019 take 1 tablet by mouth once daily Metoprolol Succinate 25 mg tablet extended release 24 hr Discontinued 1 TAB PO Daily June 01, 2019 12:00am June 04, 2019 11:45am omeprazole 40 mg delayed release oral capsule (16 sources) Proton Pump Inhibitor Start: 09-15-2021 End: 10-30-2021 take 1 capsule by mouth once daily Omeprazole 40 mg capsule,delayed release(DR/EC) Discontinued 40 MG PO Daily September 15, 2021 1:00am October 30, 2021 2:03pm potassium chloride 10 meq extended release oral capsule (11 sources) Start: 08-01-2019 End: 04-14-2021 take 1 capsule by mouth once daily Potassium Chloride 10 mEq Capsule, Extended Release Discontinued 10 MEQ PO Daily August 01, 2019 1:00am April 14, 2021 3:39pm predniSONE 10 mg oral tablet (11 sources) Start: 06-04-2019 End: 07-28-2019 Prednisone 10 mg tablet Discontinued 10 MG PO Daily June 04, 2019 12:00am July 28, 2019 9:45am 40mg x 3, 30mg x 3, 20mg x 3, 10mg x 3 then stop Start: 06-04-2019 End: 07-28-2019 Prednisone Discontinued 10 M G PO Daily June 04, 2019 12:00am July 28, 2019 9:45am 40mg x 3, 30mg x 3, 20mg x 3, 10mg x 3 then stop valsartan 160 mg oral tablet (15 sources) Angiotensin 2 Receptor Cameron Start: 04-14-2021 End: 09-15-2021 take 1 tablet by mouth twice daily Valsartan 160 mg Tablet Discontinued 160 MG PO Twice daily April 14, 2021 12:00am September 15, 2021 10:30am Problems Active Problems Problem Classification Problem Date Documented Da te Episodic/Chronic Abdominal pain (20 sources) Epigastric pain; Translations: [Epigastric pain] 04-23-2022 Episodic Acute bronchitis (2 sources) Acute bronchitis, unspecified Episodic Allergic reactions (4 sources) Allergic disorder of skin; Translations: [Allergic contact dermatitis, unspecified cause] 07-03-2024 Episodic Cardiac dysrhythmias (20 sources) Atrial fibrillation; Translations: [Unspecified atrial fibrillation] Onset: 1 10-31-2021 Chronic Cardiac dysrhythmias (4 sources) Palpitations; Translations: [Palpitations] Episodic Chronic kidney disease (20 sources) Chronic kidney disease, unspecified; Translations: [Chronic kidney disease stage 3] Onset: 2 01-06-2024 Chronic Chronic kidney disease (2 sources) Chronic kidney disease; Translations: [Chronic kidney disease, stage 3b] Onset: 4 Chronic obstructive pulmonary disease and bronchiectasis (20 sources) Chronic obstructive lung disease; Translations: [Chronic obstructive pulmonary disease, unspecified] Onset: 1 12-04-2021 Chronic Deficiency and other anemia (2 sources) Iron deficiency anemia due to blood loss; Translations: [Iron deficiency anemia secondary to blood loss (chronic)] 01-01-2025 Chronic Deficiency and other anemia (1 source) Iron deficiency anemia secondary to blood loss (chronic); Translations: [Iron deficiency anemia secondary to blood loss (chronic)] Onset: 5 Chronic Deficiency and other anemia (20 sources) Iron deficiency anemia, unspecified; Translations: [Iron deficiency anemia, unspecified] Onset: 2 Resolved: 2 Episodic Deficiency and other anemia (9 sources) Nutritional anemia; Translations: [Folate deficiency anemia, unspecified] 08-29-2022 Episodic Deficiency and other anemia (9 sources) Folate deficiency anemia, unspecified; Translations: [Folate-deficiency anemia] 11-27-2022 Episodic Deficiency and other anemia (2 sources) Anemia, unspecified; Translations: [Anemia, unspecified] Onset: 2 Episodic Disorders of lipid metabolism (20 sources) Familial hyperchylomicronemia; 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] Onset: 8 07-28-2023 Chronic Essential hypertension (20 sources) Hypertensive disorder; Translations: [Essential (primary) hypertension] Onset: 1 10-31-2021 Chronic Gastrointestinal hemorrhage (2 sources) Melena; Translations: [Melena] Onset: 4 Episodic Heart valve disorders (20 sources) Non-rheumatic mitral regurgitation ; Translations: [Nonrheumatic mitral (valve) insufficiency] Onset: 4 07-03-2024 Chronic Immunizations and screening for infectious disease (2 sources) Needs influenza immunization; Translations: [Encounter for immunization] 07-03-2024 Episodic Inflammation; infection of eye (except that caused by tuberculosis or sexually transmitteddisease) (2 sources) Internal hordeolum; Translations: [Hordeolum internum left eye, unspecified eyelid] 01-07-2024 Episodic Nonspecific chest pain (2 sources) Chest pain, unspecified; Translations: [Chest pain, unspecified] Onset: 4 Episodic Other aftercare (4 sources) Drug therapy finding; Translations: [Long-term (current) use of anticoagulants] Episodic Other and ill-defined heart disease (20 sources) Left atrial enlargement; Translations: [Cardiomegaly] Onset: 4 02-28-2024 Chronic Other circulatory disease (4 sources) Ectatic coronary artery; Translations: [Other specified disorders of arteries and arterioles] Chronic Other ear and sense organ disorders (2 sources) Impacted cerumen in right ear; Translations: [Impacted cerumen, right ear] 08-30-2024 Episodic Other gastrointestinal disorders (11 sources) Disorder of gastrointestinal tract; Translations: [Angiodysplasia of colon without hemorrhage] 10-30-2021 Episodic Other gastrointestinal disorders (19 sources) Angiodysplasia of colon without hemorrhage; Translations: [Angiodysplasia of intestine (without mention of hemorrhage)] Onset: 2 04-23-2022 Episodic Other gastrointestinal disorders (2 sources) Other specified symptoms and signs involving the digestive system and abdomen Episodic Other gastrointestinal disorders (1 source) Flatulence Episodic Other gastrointestinal disorders (1 source) Diarrhea, unspecified Episodic Other gastrointestinal disorders (20 sources) History of gastrointestinal bleed; Translations: [Personal history of other diseases of the digestive system] Onset: 2 09-21-2023 Episodic Other gastrointestinal disorders (20 sources) Vascular ectasia of small intestine; Translations: [Angiodysplasia of colon with hemorrhage] Onset: 4 01-24-2024 Episodic Other gastrointestinal disorders (2 sources) Personal history of other diseases of the digestive system; Translations: [Personal history of other diseases of the digestive system] Onset: 4 Episodic Other hematologic conditions (11 sources) High troponin I level; Translations: [Other specified abnormalities of plasma proteins] 10-30-2021 Episodic Other injuries and conditions due to external causes (4 sources) At risk for falls ; Translations: [History of fall] Episodic Other nutritional; endocrine; and metabolic disorders (20 sources) Obesity; Translations: [Obesity, unspecified] Onset: 1 [...] caused by tuberculosis or sexually transmitted disease) (11 sources) Pneumonia; Translations: [Pneumonia, unspecified organism] 10-30-2021 Episodic Residual codes; unclassified (2 sources) Localized edema; Translations: [Localized edema] Onset: 5 Episodic Respiratory failure; insufficiency; arrest (adult) (1 source) Dependence on supplemental oxygen; Translations: [DEPENDENCE ON SUPPLEMENTAL OXYGEN] Onset: 2 Chronic Substance-related disorders (11 sources) Smoker; Translations: [Nicotine dependence, unspecified, uncomplicated] [...] anemia; Translations: [Iron deficiency anemia, unspecified] Onset: 07-28-2023 10-30-2021 Episodic Deficiency and other anemia (20 sources) Anemia; Translations: [Anemia, unspecified] Onset: 06-18-2022 09-21-2023 Episodic Mood disorders (20 sources) Mood disorders Onset: 01-24-2024 01-24-2024 Other aftercare (1 source) Encounter for follow-up examination after completed treatment for conditions other than malignant neoplasm; Translations: [ENC F/U EX AFTR CMPL TX NOT MAL JA] Onset: 08-21-2022 Episodic Other aftercare (3 sources) Other spring former (current) drug therapy; Translations: [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 THERAPY] Onset: 08-21-2022 Episodic Other bone disease and musculoskeletal deformities (20 sources) Arrest of bone development AND/OR growth; Translations: [Other disorders of bone development and growth, unspecified site] Onset: 08-07-2008 07-28-2023 Episodic Other circulatory disease (3 sources) Other specified symptoms and signs involving the circulatory and respiratory systems; Translations: [OTH SPEC SX SIGNS INVLV CIRC RS] Onset: 02-21-2022 Episodic Other gastrointestinal disorders (1 source) Disease of intestine, unspecified Onset: 10-23-2021 Resolved: 10-23-2021 Episodic Other hematologic conditions (1 source) Other specified abnormalities of plasma proteins; Translations: [OTH SPEC ABNORM PLASMA PROTEINS] Onset: 02-25-2022 Episodic Other injuries and conditions due to external causes (4 sources) Unspecified injury of thorax, initial encounter; Translations: [UNSPECIFIED INJURY THORAX INITIAL] Onset: 12-22-2021 Episodic Other lower respiratory disease (3 sources) Shortness of breath; Translations: [SHORTNESS OF BREATH] Onset: 08-19-2022 Episodic Other lower respiratory disease (1 source) Dyspnea, unspecified; Translations: [DYSPNEA UNSPECIFIED] Onset: 08-21-2022 Episodic Other lower respiratory disease (1 source) Personal history of pneumonia (recurrent); Translations: [PERSONAL HX OF PNEUMONIA RECURRENT] Onset: 08-21-2022 Episodic Other lower respiratory disease (1 source) Wheezing; Translations: [WHEEZING] Onset: 02-25-2022 Episodic Other screening for suspected conditions (not mental disorders or infectious disease) (20 sources) Renal function tests abnormal; Translations: [Abnormal results of kidney function studies] Onset: 07-03-2024 07-03-2024 Episodic Spondylosis; intervertebral disc disorders; other back problems (20 sources) Low back pain; Translations: [Lumbago] Onset: 08-07-2008 07-28-2023 Episodic Unclassified (1 source) Acute cough R05.1 Results Test Name Value Interpretation Reference Range Facility Complete Blood Count Auto Di ffon 12-28-2024 Basophils (Bld) [#/Vol] 0.1 10*3/uL Normal 0.0-0.2 [facility] Comment on above: Result Comment: PERF ORMED BY: [facility] Beti [place] [address] PATHOLOGIST PROMOTION WRITER LASHAY CHARLES M.D. Performed By: #### F ER, FE and TIBC, CBC #### [address] Basophils/100 WBC (Bld) 1.9 % Normal . [facility] Comment on above: Performed By: #### F ER, FE and TIBC, CBC #### [address] Eosinophils (Bld) [#/Vol] 0.5 10*3/uL High 0.0-0.45 [facility] Comment on above: Performed By: #### F ER, FE and TIBC, CBC #### [address] Eosinophils/100 WBC (Bld) 10.3 % Normal . [facility] Comment on above: Performed By: #### F ER, FE and TIBC, CBC #### [address] Erythrocyte distribution width (RBC) [Ratio] 14.8 % Normal 11.9-15.3 [facility] Comment on above: Performed By: #### F ER, FE and TIBC, CBC #### [address] Hematocrit (Bld) [Volume fraction] 29.6 % Low 34.0-46.4 [facility] Comment on above: Performed By: #### F ER, FE and TIBC, CBC #### [address] Hemoglobin (Bld) [Mass/Vol] 10.0 g/dL Low 11.8-15.4 [facility] Comment on above: Performed By: #### F ER, FE and TIBC, CBC #### [place] [address] [place] Lymphocytes (Bld) [#/Vol] 1.4 10*3/uL Normal 1.00-4.8 [facility] Comment on above: Performed By: #### F ER, FE and TIBC, CBC #### [place] [address] [place] Lymphocytes/100 WBC (Bld) 28.3 % Normal . [facility] Comment on above: Performed By: #### F ER, FE and TIBC, CBC #### [address] MCH (RBC) [Entitic mass] 31.4 pg Normal 24.7-34.3 [facility] Comment on above: Performed By: #### F ER, FE and TIBC, CBC #### [address] MCV (RBC) [Entitic vol] 92.4 fL Normal 80-100 [facility] Comment on above: Performed By: #### F ER, FE and TIBC, CBC #### [address] Mean Corpuscular HGB Conc 34.0 g/dL Normal 32.0-35.0 [facility] Comment on above: Performed By: #### F ER, FE and TIBC, CBC #### [address] Monocytes (Bld) [#/Vol] 0.4 10*3/uL Normal 0.0-0.8 [facility] Comment on above: Performed By: #### F ER, FE and TIBC, CBC #### [address] Monocytes/100 WBC (Bld) 8.8 % Normal . [facility] Comment on above: Performed By: #### F ER, FE and TIBC, CBC #### [address] Neutrophils (Bld) [#/Vol] 2.6 10*3/uL Normal 1.8-7.7 [facility] Comment on above: Performed By: #### F ER, FE and TIBC, CBC #### [address] Neutrophils/100 WBC (Bld) 50.7 % Normal . [facility] Comment on above: Performed By: #### F ER, FE and TIBC, CBC #### [address] NRBC% 0.2 /100{WBC} Normal 0-0.[address] [facility] Comment on above: Performed By: #### F ER, FE and TIBC, CBC #### [address] Platelet mean volume (Bld) [Entitic vol] 8.4 fL Normal 6.3-10.7 [facility] Comment on above: Performed By: #### F ER, FE and TIBC, CBC #### [address] Platelets (Bld) [#/Vol] 301 10*3/uL Normal 150-450 [facility] Comment on above: Performed By: #### F ER, FE and TIBC, CBC #### [address] RBC (Bld) [#/Vol] 3.20 10*6/uL Low 3.60-5.00 [facility] Comment on above: Performed By: #### F ER, FE and TIBC, CBC #### [address] WBC (Bld) [#/Vol] 5.0 10*3/uL Normal 3.8-11.6 [facility] Comment on above: Performed By: #### F ER, FE and TIBC, CBC #### [address] Ferritinon 12-28-2024 Ferritin [Mass/Vol] 73.7 ng/mL Normal 11.0-306.8 [facility] Comment on above: Result Comment: PERF ORMED BY: [place] [address] PATHOLOGIST PROMOTION WRITER LASHAY CHARLES M.D. Performed By: #### F ER, FE and TIBC, CBC #### [address] Iron and TIBC Profileon 05-0 % Iron Saturation 14.3 % Low 20-50 [facility] Comment on above: Performed By: #### F ER, FE and TIBC, CBC #### [facility] [address] [place] [id number] [place] Iron [Mass/Vol] 47 ug/dL Low 50-212 [facility] Comment on above: Performed By: #### F ER, FE and TIBC, CBC #### [facility] [address] [place] [id number] [facility] Total Iron Binding Capacity 328 ug/dL Normal 255-450 [facility] Comment on above: Performed By: #### F ER, FE and TIBC, CBC #### [facility] [address] [place] [id number] [place] Transferrin [Mass/Vol] 234 mg/dL Normal 203-362 [facility] Comment on above: Performed By: #### F ER, FE and TIBC, CBC #### [facility] [address] Alanine aminotransferase [En zymatic activity/volume] in Serum or PlasmaOrdered By: Bell Camargo on 10-26-2024 ALT [Catalytic activity/Vol] Alanine aminotransferase [Enzymatic activity/volume] in Serum or Plasma 7-52 [facility] Albumin [Mass/volume] in Ser um or Plasma by Bromocresol green (BCG) dye binding methoOrdered By: Bell Camargo on 10-26-2024 Albumin BCG dye [Mass/Vol] Albumin [Mass/volume] in Serum or Plasma by Bromocresol green (BCG) dye binding metho 3.5-5.7 [facility] Alkaline phosphatase [Enzyma tic activity/volume] in Serum or PlasmaOrdered By: Bell Camargo on 10-26-2024 ALP [Catalytic activity/Vol] Alkaline phosphatase [Enzymatic activity/volume] in Serum or Plasma 34-104 [facility] Aspartate aminotransferase [ Enzymatic activity/volume] in Serum or PlasmaOrdered By: Bell Camargo on 10-26-2024 AST [Catalytic activity/Vol] Aspartate aminotransferase [Enzymatic activity/volume] in Serum or Plasma 13-39 [facility] Basophils Auto (Bld) [#/Vol] Ordered By: Bell Camargo on 10-26-2024 Basophils (Bld) [#/Vol] Automated basoph il count 0.0-0.2 [facility] Basophils/100 WBC Auto (Bld) Ordered By: Bell Camargo on 10-26-2024 Basophils/100 WBC (Bld) Automated basophil % . [facility] Bilirubin.total [Mass/volume ] in Serum or PlasmaOrdered By: Bell Camargo on 10-26-2024 Bilirubin [Mass/Vol] Bilirubin.total [Mass/volume] in Serum or Plasma Low 0.3-1.0 [facility] CBC W Auto Differential pane l (Bld)on 10-26-2024 Basophils (Bld) [#/Vol] 0.1 10*3/uL 0.0 - 0.2 10*3/uL [facility] Basophils/100 WBC Manual cnt (Syn fld) 1.7 % . [facility] Eosinophils (Bld) [#/Vol] 0.4 10*3/uL 0.0 - 0.45 10*3/uL [facility] Eosinophils/100 WBC Manual cnt (Syn fld) 7.6 % . [facility] Erythrocyte distribution width (RBC) [Ratio] 18 % High 11.9 - 15.3 % [facility] Hematocrit (Bld) [Volume fraction] 33.8 % Low 34.0 - 46.4 % [facility] Hemoglobin (Bld) [Mass/Vol] 11.3 g/dL Low 11.8 - 15.4 g/dL [facility] Interpretation and review of laboratory results Abnormal [facility] Lymphocytes (Bld) [#/Vol] 1.2 10*3/uL 1.00 - 4.8 10*3/uL [facility] Lymphocytes/100 WBC Manual cnt (Syn fld) 24.7 % . [facility] MCH (RBC) [Entitic mass] 31.3 pg 24.7 - 34.3 pg [facility] MCHC (RBC) [Mass/Vol] 33.4 g/dL 32.0 - 35.0 g/dL [facility] MCV (RBC) [Entitic vol] 93.6 fL 80 - 100 fL [facility] Monocytes (Bld) [#/Vol] 0.4 10*3/uL 0.0 - 0.8 10*3/uL [facility] Monocytes+Macrophages/1 00 WBC Manual cnt (Syn fld) 9.1 % . [facility] Neutrophils (Bld) [#/Vol] 2.7 10*3/uL 1.8 - 7.7 10*3/[facility]L [facility] WBC Manual cnt (Syn fld) 56.9 % . [facility] NRBC 0.1 /100{WBC} 0 - 0.5 /100{WBC} [facility] Platelet mean volume (Bld) [Entitic vol] 8.1 fL 6.3 - 10.7 fL [facility] Platelets (Bld) [#/Vol] 272 10*3/uL 150 - 450 10*3/uL [facility] RBC LM.HPF (Urine sed) [#/Area] 3.61 10*6/uL 3.60 - 5.00 10*6/uL [facility] WBC (Bld) [#/Vol] 4.7 10*3/uL 3.8 - 11.6 10*3/uL [facility] WBC LM.HPF (Urine sed) [#/Area] 4.7 10*3/uL 3.8 - 11.6 10*3/uL [facility] Calcium [Mass/volume] in Ser um or PlasmaOrdered By: Bell Camargo on 10-26-2024 Calcium [Mass/Vol] Calcium [Mass/volume ] in Serum or Plasma 8.6-10.3 [facility] Carbon dioxide, total [Moles /volume] in Serum or PlasmaOrdered By: Bell Camargo on 10-26-2024 CO2 [Moles/Vol] Carbon dioxide, tota l [Moles/volume] in Serum or Plasma 21.0-31.0 [facility] Chloride [Moles/volume] in S constance or PlasmaOrdered By: Bell Camargo on 10-26-2024 Chloride [Moles/Vol] Chloride [Moles/volume] in Serum or Plasma 98-107 [facility] Complete Blood Count Auto Di ffon 10-26-2024 Basophils (Bld) [#/Vol] 0.1 10*3/uL Normal 0.0-0.2 [facility] Comment on above: Result Comment: PERF ORMED BY: [facility] [address] [place] [address] PATHOLOGIST PROMOTION WRITER LASHAY CHARLES M.D. Performed By: #### C MP, FE and TIBC, SHI, CBC #### [address] Basophils/100 WBC (Bld) 1.7 % Normal . [facility] Comment on above: Performed By: #### C MP, FE and TIBC, SHI, CBC #### [address] Eosinophils (Bld) [#/Vol] 0.4 10*3/uL Normal 0.0-0.45 [facility] Comment on above: Performed By: #### C MP, FE and TIBC, SHI, CBC #### [address] Eosinophils/100 WBC (Bld) 7.6 % Normal . [facility] Comment on above: Performed By: #### C MP, FE and TIBC, SHI, CBC #### [address] Erythrocyte distribution width (RBC) [Ratio] 18.0 % High 11.9-15.3 [facility] Comment on above: Performed By: #### C MP, FE and TIBC, SHI, CBC #### [address] Hematocrit (Bld) [Volume fraction] 33.8 % Low 34.0-46.4 [facility] Comment on above: Performed By: #### C MP, FE and TIBC, SHI, CBC #### [address] Hemoglobin (Bld) [Mass/Vol] 11.3 g/dL Low 11.8-15.4 [facility] Comment on above: Performed By: #### C MP, FE and TIBC, SHI, CBC #### [address] Lymphocytes (Bld) [#/Vol] 1.2 10*3/uL Normal 1.00-4.8 [facility] Comment on above: Performed By: #### C MP, FE and TIBC, SHI, CBC #### [address] Lymphocytes/100 WBC (Bld) 24.7 % Normal . [facility] Comment on above: Performed By: #### C MP, FE and TIBC, SHI, CBC #### [address] MCH (RBC) [Entitic mass] 31.3 pg Normal 24.7-34.3 [facility] Comment on above: Performed By: #### C MP, FE and TIBC, SHI, CBC #### [address] MCV (RBC) [Entitic vol] 93.6 fL Normal 80-100 [facility] Comment on above: Performed By: #### C MP, FE and TIBC, SHI, CBC #### [address] Mean Corpuscular HGB Conc 33.4 g/dL Normal 32.0-35.0 [facility] Comment on above: Performed By: #### C MP, FE and TIBC, SHI, CBC #### [address] Monocytes (Bld) [#/Vol] 0.4 10*3/uL Normal 0.0-0.8 [facility] Comment on above: Performed By: #### C MP, FE and TIBC, SHI, CBC #### [address] Monocytes/100 WBC (Bld) 9.1 % Normal . [facility] Comment on above: Performed By: #### C MP, FE and TIBC, SHI, CBC #### [address] Neutrophils (Bld) [#/Vol] 2.7 10*3/uL Normal 1.8-7.7 [facility] Comment on above: Performed By: #### C MP, FE and TIBC, SHI, CBC #### [address] Neutrophils/100 WBC (Bld) 56.9 % Normal . [facility] Comment on above: Performed By: #### C MP, FE and TIBC, SHI, CBC #### [address] NRBC% 0.1 /100{WBC} Normal 0-0.[address] [facility] Comment on above: Performed By: #### C MP, FE and TIBC, SHI, CBC #### [address] Platelet mean volume (Bld) [Entitic vol] 8.1 fL Normal 6.3-10.7 [facility] Comment on above: Performed By: #### C MP, FE and TIBC, SHI, CBC #### [address] Platelets (Bld) [#/Vol] 272 10*3/uL Normal 150-450 [facility] Comment on above: Performed By: #### C MP, FE and TIBC, SHI, CBC #### [address] RBC (Bld) [#/Vol] 3.61 10*6/uL Normal 3.60-5.00 [facility] Comment on above: Performed By: #### C MP, FE and TIBC, SHI, CBC #### [address] WBC (Bld) [#/Vol] 4.7 10*3/uL Normal 3.8-11.6 [facility] Comment on above: Performed By: #### C MP, FE and TIBC, SHI, CBC #### [address] Comprehensive Metabolic Pane abraham 10-26-2024 Albumin [Mass/Vol] 4.0 g/dL Normal 3.5-5.7 [facility] Comment on above: Performed By: #### C MP, FE and TIBC, SHI, CBC #### [address] Albumin/Globulin [Mass ratio] 1.5 {ratio} Normal [facility] Comment on above: Performed By: #### C MP, FE and TIBC, SHI, CBC #### [address] ALP [Catalytic activity/Vol] 90 U/L Normal 34-104 [facility] Comment on above: Performed By: #### C MP, FE and TIBC, SHI, CBC #### [address] ALT [Catalytic activity/Vol] 15 U/L Normal 7-52 [facility] Comment on above: Performed By: #### C MP, FE and TIBC, SHI, CBC #### [address] Anion gap [Moles/Vol] 9.7 mmol/L Normal 6.0-15.0 [facility] Comment on above: Performed By: #### C MP, FE and TIBC, SHI, CBC #### [address] AST [Catalytic activity/Vol] 19 U/L Normal 13-39 [facility] Comment on above: Performed By: #### C MP, FE and TIBC, SHI, CBC #### [address] Bilirubin [Mass/Vol] 0.2 mg/dL Low 0.3-1.0 [facility] Comment on above: Performed By: #### C MP, FE and TIBC, SHI, CBC #### [address] Calcium [Mass/Vol] 8.9 mg/dL Normal 8.6-10.3 [facility] Comment on above: Performed By: #### C MP, FE and TIBC, SHI, CBC #### [address] Chloride [Moles/Vol] 104 mmol/L Normal 98-107 [facility] Comment on above: Performed By: #### C MP, FE and TIBC, SHI, CBC #### [facility] [address] CO2 [Moles/Vol] 30.0 mmol/L Normal 21.0-31.0 [facility] Comment on above: Performed By: #### C MP, FE and TIBC, SHI, CBC #### [address] Creatinine [Mass/Vol] 1.33 mg/dL High 0.60-1.20 [facility] Comment on above: Performed By: #### C MP, FE and TIBC, SHI, CBC #### [address] Creatinine Clr Calc Pharmacy 30.10 Normal [facility] Comment on above: Performed By: #### C MP, FE and TIBC, SHI, CBC #### [address] Estimated GFR 40.953 mL/Min Normal [facility] Comment on above: Performed By: #### C MP, FE and TIBC, SHI, CBC #### [address] Globulin (S) [Mass/Vol] 2.7 g/dL Normal [facility] Comment on above: Performed By: #### C MP, FE and TIBC, SHI, CBC #### [address] Glucose [Mass/Vol] 152 mg/dL High 70-100 [facility] Comment on above: Result Comment: [place] Glucose Reference Range is dependent on time and content of last meal. Glucose of more than 200 mg/dL in a nonstressed, ambulatory subject supports the diagnosis of Diabetes Mellitus. ADA recommended reference range Performed By: #### C MP, FE and TIBC, SHI, CBC #### [address] Potassium [Moles/Vol] 4.7 mmol/L Normal 3.5-5.1 [facility] Comment on above: Performed By: #### C MP, FE and TIBC, SHI, CBC #### [facility] [address] Protein [Mass/Vol] 6.7 g/dL Normal 6.4-8.9 [facility] Comment on above: Performed By: #### C MP, FE and TIBC, SHI, CBC #### [facility] [address] Sodium [Moles/Vol] 139 mmol/L Normal 136-145 [facility] Comment on above: Performed By: #### C MP, FE and TIBC, SHI, CBC #### [facility] [address] Urea nitrogen [Mass/Vol] 38 mg/dL High 7-25 [facility] Comment on above: Performed By: #### C MP, FE and TIBC, SHI, CBC #### [facility] [address] Creatinine [Mass/volume] in Serum or PlasmaOrdered By: Bell Camargo on 10-26-2024 Creatinine [Mass/Vol] Creatinine [Mass/volume] in Serum or Plasma High 0.60-1.20 [facility] Eosinophils Auto (Bld) [#/Vo l]Ordered By: Bell Camargo on 10-26-2024 Eosinophils (Bld) [#/Vol] Automated eosinophil count 0.0-0.45 [facility] Eosinophils/100 WBC Auto (Bl d)Ordered By: Bell Camargo on 10-26-2024 Eosinophils/100 WBC (Bld) Automated eosinophil % . [facility] Erythrocyte distribution wid th Auto (RBC) [Ratio]Ordered By: Bell Camargo on 10-26-2024 Erythrocyte distribution width (RBC) [Ratio] Erythrocyte distribution width [Ratio] by Automated count High 11.9-15.3 [facility] Ferritinon 10-26-2024 Ferritin [Mass/Vol] 156.0 ng/mL Normal 11.0-306.8 [facility] Comment on above: Result Comment: PERF ORMED BY: [place] [address] PATHOLOGIST PROMOTION WRITER LASHAY CHARLES M.D. Performed By: #### C MP, FE and TIBC, SHI, CBC #### [facility] [address] Ferritin [Mass/volume] in Se rum or PlasmaOrdered By: Bell Camargo on 10-26-2024 Ferritin [Mass/Vol] Ferritin [Mass/volume] in Serum or Plasma 11.0-306.8 [facility] Globulin Calc (S) [Mass/Vol] Ordered By: Bell Camargo on 10-26-2024 Globulin (S) [Mass/Vol] Serum globulin measurement by calculation (mass/volume) [facility] Glucose [Mass/volume] in Ser um or PlasmaOrdered By: Bell Camargo on 10-26-2024 Glucose [Mass/Vol] Glucose [Mass/volume ] in Serum or Plasma High 70-100 [facility] Comment on above: ADA recommended refe rence rangeRandom Glucose Reference Range is dependent on time and content of last meal. Glucose of more than 200 mg/dL in a nonstressed, ambulatory subject supports the diagnosis of Diabetes Mellitus. Hematocrit Auto (Bld) [Volum e fraction]Ordered By: Bell Camargo on 10-26-2024 Hematocrit (Bld) [Volume fraction] Hematocrit [Volume Fraction] of Blood by Automated count Low 34.0-46.4 [facility] Hemoglobin [Mass/volume] in BloodOrdered By: Bell Camargo on 10-26-2024 Hemoglobin (Bld) [Mass/Vol] Hemoglobin [Mass/volume] in Blood Low 11.8-15.4 [facility] Iron [Mass/volume] in Serum or PlasmaOrdered By: Bell Camargo on 10-26-2024 Iron [Mass/Vol] Iron [Mass/volume] i n Serum or Plasma 50-212 [facility] Iron and TIBC Profileon % Iron Saturation 16.2 % Low 20-50 [facility] Comment on above: Performed By: #### C MP, FE and TIBC, SHI, CBC #### [facility] [address] [place] [id number] [facility] Iron [Mass/Vol] 52 ug/dL Normal 50-212 [facility] Comment on above: Performed By: #### C MP, FE and TIBC, SHI, CBC #### [facility] [address] Total Iron Binding Capacity 321 ug/dL Normal 255-450 [facility] Comment on above: Performed By: #### C MP, FE and TIBC, SHI, CBC #### [facility] [address] [place] [address] [place] Transferrin [Mass/Vol] 229 mg/dL Normal 203-362 [facility] Comment on above: Performed By: #### C MP, FE and TIBC, SHI, CBC #### [facility] [address] Leukocytes [#/volume] correc maria e for nucleated erythrocytes in Blood by Automated counOrdered By: Bell Camargo on 10-26-2024 WBC corrected for nucl RBC Auto (Bld) [#/Vol] Leukocytes [#/volume] corrected for nucleated erythrocytes in Blood by Automated coun 3.8-11.6 [facility] Lymphocytes Auto (Bld) [#/Vo l]Ordered By: Bell Camargo on 10-26-2024 Lymphocytes (Bld) [#/Vol] Lymphocytes [#/volume] in Blood by Automated count 1.00-4.8 [facility] Lymphocytes/100 WBC Auto (Bl d)Ordered By: Bell Camargo on 10-26-2024 Lymphocytes/100 WBC (Bld) Lymphocytes/100 leukocytes in Blood by Automated count . [facility] MCH Auto (RBC) [Entitic mass ]Ordered By: Bell Camargo on 10-26-2024 MCH (RBC) [Entitic mass] MCH [Entitic mass] by Automated count 24.7-34.3 [facility] MCHC Auto (RBC) [Mass/Vol]Or dered By: Bell Camargo on 10-26-2024 MCHC (RBC) [Mass/Vol] MCHC [Mass/volume] by Automated count 32.0-35.0 [facility] MCV Auto (RBC) [Entitic vol] Ordered By: Bell Camargo on 10-26-2024 MCV (RBC) [Entitic vol] MCV [Entitic vol ume] by Automated count 80-100 [facility] Monocytes Auto (Bld) [#/Vol] Ordered By: Bell Camargo on 10-26-2024 Monocytes (Bld) [#/Vol] Automated blood monocyte count 0.0-0.8 [facility] Monocytes/100 WBC Auto (Bld) Ordered By: Bell Camargo on 10-26-2024 Monocytes/100 WBC (Bld) Automated monocyte % . [facility] Neutrophils Auto (Bld) [#/Vo l]Ordered By: Bell Camargo on 10-26-2024 Neutrophils (Bld) [#/Vol] Neutrophils [#/volume] in Blood by Automated count 1.8-7.7 [facility] Neutrophils/100 WBC Auto (Bl d)Ordered By: Bell Camargo on 10-26-2024 Neutrophils/100 WBC (Bld) Automated neutrophil % . [facility] No Panel InformationOrdered By: Bell Camargo on 10-26-2024 Estimated GFR (CKD-EPI) 40.953 mL/Min [facility] Creatinine Clearance (Chem 30.10 [facility] Nucleated erythrocytes [Pres ence] in Blood by Automated countOrdered By: Bell Camargo on 10-26-2024 Nucleated RBC Auto Ql (Bld) Nucleated erythrocytes [Presence] in Blood by Automated count 0-0.5 [facility] Platelet mean volume Auto (B ld) [Entitic vol]Ordered By: Bell Camargo on 10-26-2024 Platelet mean volume (Bld) [Entitic vol] Platelet mean volume [Entitic volume] in Blood by Automated count 6.3-10.7 [facility] Platelets Auto (Bld) [#/Vol] Ordered By: Bell Camargo on 10-26-2024 Platelets (Bld) [#/Vol] Platelets [#/vol ume] in Blood by Automated count 150-450 [facility] Potassium [Moles/volume] in Serum or PlasmaOrdered By: Bell Camargo on 10-26-2024 Potassium [Moles/Vol] Potassium [Moles/volume] in Serum or Plasma 3.5-5.1 [facility] Protein [Mass/volume] in Ser um or PlasmaOrdered By: Bell Camargo on 10-26-2024 Protein [Mass/Vol] Protein [Mass/volume ] in Serum or Plasma 6.4-8.9 [facility] RBC Auto (Bld) [#/Vol]Ordere d By: Bell Camargo on 10-26-2024 RBC (Bld) [#/Vol] Erythrocytes [#/volume] in Blood by Automated count 3.60-5.00 [facility] Serum or plasma albumin/glob ulin mass ratioOrdered By: Bell Camargo on 10-26-2024 Albumin/Globulin [Mass ratio] Serum or plasma albumin/globulin mass ratio [facility] Serum or plasma anion gap de terminationOrdered By: Bell Camargo on 10-26-2024 Anion gap [Moles/Vol] Serum or plasma an ion gap determination 6.0-15.0 [facility] Serum or plasma iron binding capacity measurement (mass/volume)Ordered By: Bell Camargo on 10-26-2024 Iron binding capacity [Mass/Vol] Iron binding capacity [Mass/volume] in Serum or Plasma 255-450 [facility] Serum or plasma iron saturat ion measurement (mass fraction)Ordered By: Bell Camargo on 10-26-2024 Iron saturation [Mass fraction] Iron saturation [Mass Fraction] in Serum or Plasma Low 20-50 [facility] Sodium [Moles/volume] in Ser um or PlasmaOrdered By: Bell Camargo on 10-26-2024 Sodium [Moles/Vol] Sodium [Moles/volume ] in Serum or Plasma 136-145 [facility] Transferrin [Mass/volume] in Serum or PlasmaOrdered By: Bell Camargo on 10-26-2024 Transferrin [Mass/Vol] Transferrin [Mass/volume] in Serum or Plasma 203-362 [facility] Urea nitrogen [Mass/volume] in Serum or PlasmaOrdered By: Bell Camargo on 10-26-2024 Urea nitrogen [Mass/Vol] Urea nitrogen [Mass/volume] in Serum or Plasma High 7-25 [facility] WBC Auto (Bld) [#/Vol]Ordere d By: Bell Camargo on 10-26-2024 WBC (Bld) [#/Vol] Leukocytes [#/volume ] in Blood by Automated count 3.8-11.6 [facility] Office Visiton 09-21-2024 Follow-up visit [id number] ElenaTerri M 1945 F Date Provider Department Center 09/21/2024 GORDON MCALLISTER Aminata Shawna Family History Problem Relation Age of Onset Atrial fibrillation Brother Family Status - Relation Status Age at Brother Level of Service:20529 PA OFFICE/OUTPATIENT ESTABLISHED MOD MDM 30 MIN Normal [facility] 36on 09-06-2024 36 Patient notified and verbalized understanding. 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 and nothing to be done at this point about Normal [facility] CBC (INCLUDES DIFF/PLT)on Basophils (Bld) [#/Vol] 0.026 10*3/uL Normal 0-200 [facility] Comment on above: Performed By: #### 6 399, [id number] #### [facility] [address], [address] [place] [address] [facility] Service Line: Rudi Kerr MD Basophils/100 WBC (Bld) 0.3 % Normal [facility] Comment on above: Performed By: #### 6 399, 31521 #### [facility] [address], [address] [place] [address] [facility] Cardi[facility] Service Line: Rudi Kerr MD Eosinophils (Bld) [#/Vol] 0.088 10*3/uL Normal 15-500 [facility] Comment on above: Performed By: #### 6 399, 27272 #### [facility] [address], [address] [place] [address] [facility] Cardi[facility] Service Line: Rudi Kerr MD Eosinophils/100 WBC (Bld) 1.0 % Normal [facility] Comment on above: Performed By: #### 6 399, 85497 #### [facility] [address], [address] [place] [address] [facility] Cardi[facility] Service Line: Rudi Kerr MD Erythrocyte distribution width (RBC) [Ratio] 15.7 % High 11.0-15.0 [facility] Comment on above: Performed By: #### 6 399, 30362 #### [facility] of [place] [address] [facility] Cardiovascular Service Line: Rudi Kerr MD Hematocrit (Bld) [Volume fraction] 25.6 % Low 35.0-45.0 [facility] Comment on above: Performed By: #### 6 399, 32147 #### [facility] [place] [address] [facility] Cardiovascular Service Line: Rudi Kerr MD Hemoglobin (Bld) [Mass/Vol] 8.3 g/dL Low 11.7-15.5 [facility] Comment on above: Performed By: #### 6 399, 32888 #### [facility] [place] [address] [facility] Cardiovascular Service Line: Rudi Kerr MD Lymphocytes (Bld) [#/Vol] 0.722 10*3/uL Low 850-3900 [facility] Comment on above: Performed By: #### 6 399, 72797 #### [facility] [place] [address] [facility] Cardiovascular Service Line: Rudi Kerr MD Lymphocytes/100 WBC (Bld) 8.2 % Normal [facility] Comment on above: Performed By: #### 6 399, 24145 #### [facility] [place] [address] [facility] Cardiovascular Service Line: Rudi Kerr MD MCH (RBC) [Entitic mass] 29.2 pg Normal 27.0-33.0 [facility] Comment on above: Performed By: #### 6 399, 93133 #### [facility] [place] [address] [facility] Cardiovascular Service Line: Rudi Kerr MD MCHC (RBC) [Mass/Vol] 32.4 g/dL Normal 32.0-36.0 [facility] Comment on above: Result Comment: For adults, a slight decrease in the calculated MCHC value (in the range of 30 to 32 g/dL) is most likely not clinically significant; however, it should be interpreted with caution in correlation with other red cell parameters and the patient's clinical condition. Performed By: #### 6 399, 49225 #### [facility] [place] [address] [facility] Cardi[facility] Service Line: Rudi Kerr MD MCV (RBC) [Entitic vol] 90.1 fL Normal 80.0-100.0 [facility] Comment on above: Performed By: #### 6 399, 87740 #### [facility] [place] [address] [facility] Cardi[facility] Service Line: Rudi Kerr MD Monocytes (Bld) [#/Vol] 0.651 10*3/uL Normal 200-950 [facility] Comment on above: Performed By: #### 6 399, 87016 #### [facility] [place] [address] [facility] Cardiovascular Service Line: Rudi Kerr MD Monocytes/100 WBC (Bld) 7.4 % Normal [facility] Comment on above: Performed By: #### 6 399, 00848 #### [facility] [place] [address] [facility] Cardiovascular Service Line: Rudi Kerr MD Neutrophils (Bld) [#/Vol] 7.313 10*3/uL Normal 7135-0400 [facility] Comment on above: Performed By: #### 6 399, 03692 #### [facility] [place] [address] [facility] Cardiovascular Service Line: Rudi Kerr MD Neutrophils/100 WBC (Bld) 83.1 % Normal [facility] Comment on above: Performed By: #### 6 399, 64799 #### [facility] [place] [address] [facility] Cardi[facility] Service Line: Rudi Kerr MD Platelet mean volume (Bld) [Entitic vol] 11.4 fL Normal 7.5-12.5 [facility] Comment on above: Performed By: #### 6 399, 46780 #### [facility] [place] [address] [facility] Cardiovascular Service Line: Rudi Kerr MD Platelets (Bld) [#/Vol] 315 10*3/uL Normal 140-400 [facility] Comment on above: Performed By: #### 6 399, 54570 #### [facility] of [address], [address] [place] [address] [facility] Cardiovascular Service Line: Rudi Kerr MD RBC (Bld) [#/Vol] 2.84 10*6/uL Low 3.80-5.10 [facility] Comment on above: Performed By: #### 6 399, 81984 #### [facility] [place] [address] [facility] Cardiovascular Service Line: Rudi Kerr MD WBC (Bld) [#/Vol] 8.8 10*3/uL Normal 3.8-10.8 [facility] Comment on above: Performed By: #### 6 399, 30008 #### [facility] [place] [address] [facility] Cardiovascular Service Line: Rudi Kerr MD [facility] 08-26-2024 Albumin [Mass/Vol] 3.3 g/dL Low 3.6-5.1 [facility] Comment on above: Order Comment: FASTI NG:NO FASTING: NO Performed By: #### 6 399, 52733 #### [facility] [place] [address] [facility] Cardiovascular Service Line: Rudi Kerr MD Albumin/Globulin [Mass ratio] 1.1 {ratio} Normal 1.0-2.5 [facility] Comment on above: Order Comment: FASTI NG:NO FASTING: NO Performed By: #### 6 399, 20584 #### [facility] [place] [address] [facility] Cardiovascular Service Line: Rudi Kerr MD ALP [Catalytic activity/Vol] 74 U/L Normal 37-153 [facility] Comment on above: Order Comment: FASTI NG:NO FASTING: NO Performed By: #### 6 399, 15560 #### [facility] [place] [address] [facility] Cardiovascular Service Line: Rudi Kerr MD ALT [Catalytic activity/Vol] 9 U/L Normal 6-29 [facility] Comment on above: Order Comment: FASTI NG:NO FASTING: NO Performed By: #### 6 399, 16533 #### [facility] [place] [address] [facility] Cardiovascular Service Line: Rudi Kerr MD AST [Catalytic activity/Vol] 9 U/L Low 10-35 [facility] Comment on above: Order Comment: FASTI NG:NO FASTING: NO Performed By: #### 6 399, 09893 #### [facility] [place] [address] [facility] Cardiovascular Service Line: Rudi Kerr MD Bilirubin [Mass/Vol] 0.3 mg/dL Normal 0.2-1.2 [facility] Comment on above: Order Comment: FASTI NG:NO FASTING: NO Performed By: #### 6 399, 36009 #### [facility] [place] [address] [facility] Cardiovascular Service Line: Rudi Kerr MD Calcium [Mass/Vol] 8.3 mg/dL Low 8.6-10.4 [facility] Comment on above: Order Comment: FASTI NG:NO FASTING: NO Performed By: #### 6 399, 75836 #### [facility] [place] [address] [facility] Cardiovascular Service Line: Rudi Kerr MD Chloride [Moles/Vol] 104 mmol/L Normal 98-110 [facility] Comment on above: Order Comment: FASTI NG:NO FASTING: NO Performed By: #### 6 399, 46515 #### [facility] [place] [address] [facility] Cardiovascular Service Line: Rudi Kerr MD CO2 [Moles/Vol] 28 mmol/L Normal 20-32 [facility] Comment on above: Order Comment: FASTI NG:NO FASTING: NO Performed By: #### 6 399, 31296 #### [facility] [place] [address] [facility] Cardiovascular Service Line: Rudi Kerr MD Creatinine [Mass/Vol] 1.51 mg/dL High 0.60-1.[address] [facility] Comment on above: Order Comment: FASTI NG:NO FASTING: NO Performed By: #### 6 399, 93654 #### [facility] [place] [address] [facility] Cardiovascular Service Line: Rudi Kerr MD GFR/1.73 sq M.predicted among non-blacks MDRD (S/P/Bld) [Vol rate/Area] 35 mL/min/{1.73_m2} Low > OR = 60 [facility] Comment on above: Order Comment: FASTI NG:NO FASTING: NO Performed By: #### 6 399, 89123 #### [facility] [place] [address] [facility] Cardiovascular Service Line: Rudi Kerr MD Globulin (S) [Mass/Vol] 2.9 g/dL Normal 1.9-3.7 [facility] Comment on above: Order Comment: FASTI NG:NO FASTING: NO Performed By: #### 6 399, 48185 #### [facility] [place] [address] [facility] Cardiovascular Service Line: Rudi Kerr MD Glucose [Mass/Vol] 112 mg/dL Normal 65-139 [facility] Comment on above: Order Comment: FASTI NG:NO FASTING: NO Result Comment: Non-fasting reference interval For someone without known diabetes, a glucose value between 100 and 125 mg/dL is consistent with prediabetes and should be confirmed with a follow-up test. Performed By: #### 6 399, 24472 #### [facility] [address], [address] [place] [address] [facility] Cardiovascular Service Line: Rudi Kerr MD Potassium [Moles/Vol] 4.5 mmol/L Normal 3.5-5.[address] [facility] Comment on above: Order Comment: FASTI NG:NO FASTING: NO Performed By: #### 6 399, 74179 #### [facility] [place] [address] [facility] Cardiovascular Service Line: Rudi Kerr MD Protein [Mass/Vol] 6.2 g/dL Normal 6.1-8.1 [facility] Comment on above: Order Comment: FASTI NG:NO FASTING: NO Performed By: #### 6 399, 66367 #### [facility] [place] [address] [facility] Cardiovascular Service Line: Rudi Kerr MD Sodium [Moles/Vol] 138 mmol/L Normal 135-146 [facility] Comment on above: Order Comment: FASTI NG:NO FASTING: NO Performed By: #### 6 399, 61914 #### [facility] [place] [address] [facility] Cardiovascular Service Line: Rudi Kerr MD Urea nitrogen [Mass/Vol] 27 mg/dL High 7-25 [facility] Comment on above: Order Comment: FASTI NG:NO FASTING: NO Performed By: #### 6 399, 53666 #### [facility] [place] [address] [facility] Cardiovascular Service Line: Rudi Kerr MD Urea nitrogen/Creatinine [Mass ratio] 18 mg/mg Normal 6-22 [facility] Comment on above: Order Comment: FASTI NG:NO FASTING: NO Performed By: #### 6 399, 05798 #### [facility] [place] [address] [facility] Cardiovascular Service Line: Rudi Kerr MD 08-21-2024 36 A message was sent thru chat from a nurse stating patient needed a hospital follow up appointment with GI. After reviewing patients chart Criss Yolande stated patient needed to follow with established GI dr denise Thompson. Cook Tortilla called and spoke with patient and she stated she will follow up with current GI dr. [facility] 3608-20-2024 36 Post Discharge Call Good morning, I am Katherine Thee, RN a lead nurse from [facility]. I am calling you to follow up on your stay with us and make sure all of your questions have been answered. You will be receiving a survey either electronic or via mail and we always aim to receive 9???s and 10???s. If there is any reason you feel as though you cannot give us these scores please indicate that now. 1. How have you been feeling since being discharged from the hospital? I feel good. 2. Did you understand your discharge instructions when they were given to prior to leaving? Yes Were you given an opportunity to ask questions? Yes 3. While a patient in the hospital, was your call light answered in a timely manner? Yes 4. Do have access to all medications that were prescribed to you at discharge? Yes 5. How would you rate your overall stay on a scale of 0-10, 10 being the best experience you have ever had. 10 6. Do you have any further questions you would like to discuss? Yes. The nursing staff was excellent! Regina took care of me Cherise night and was amazing. I wanted to take Sim home with me! Patient Name Terri Newton Date 08/20/24 [facility] 36 Post Discharge Call Good morning, I am Katherine Kingston RN a lead nurse from [facility]. I am calling you to follow up on your stay with us and make sure all of your questions have been answered. You will be receiving a survey either electronic or via mail and we always aim to receive 9???s and 10???s. If there is any reason you feel as though you cannot give us these scores please indicate that now. No answer- RN left message at 1101. Patient Name Terri Newton Date 08/20/24 [facility] Telephoneon 08-20-2024 Telephone [id number] Terri Newton 1945 F Date Provider Department Center 08/20/2024 1600-KATHERINE [facility] Family History Problem Relation Age of Onset Atrial fibrillation Brother Family Status - Relation Status Age at Brother Reason for Visit and Comments: Hospital Follow-up [832] Normal [facility] 30on 08-19-2024 30 Active discharge order is in. Patient qualifies for home oxygen. Clinical gathered and faxed, to [employer], at [phone]. Oxygen tank delivered to patient at bedside and educated on the need to call healthcare solutions upon discharging from the hospital. Patient expressed understanding. No further OTM needs at this time. Normal [facility] BASIC METABOLIC PANELon 12- Anion gap [Moles/Vol] 9 mmol/L Normal 7-20 [facility] Comment on above: Performed By: #### L [id number] ####[facility] ([facility])[address] [place] [address] Calcium [Mass/Vol] 8.6 mg/dL Normal 8.6-10.3 [facility] Comment on above: Performed By: #### L [id number] ####[facility] ([facility])[address] [place] [address] Chloride [Moles/Vol] 104 mmol/L Normal 98-107 [facility] Comment on above: Performed By: #### L [id number] ####[facility] (BEAKER)[address] [place] [address] CO2 [Moles/Vol] 30 mmol/L Normal 21-31 [facility] Comment on above: Performed By: #### L [id number] ####[facility] (BE[facility])[address] [place] [address] Creatinine [Mass/Vol] 1.26 mg/dL High 0.60-1.20 [facility] Comment on above: Performed By: #### L [id number] ####[facility] ([facility] [place] [address] GLOMERULAR FILTRATION RATE ML/MIN/1.73 SQ M.PREDICTED 43.7 mL/min/1.73m*2 Low >60.0 [facility] Comment on above: Result Comment: The [facility]???s estimated glomerular filtration rate (eGFR) will no longer include consideration of race in its calculation. The National Kidney Foundation???s eGFR Task Force developed new recommendations for the estimation of the glomerular filtration rate in the [place] They recommend immediate implementation of the new equation refit without the race variable in all laboratories because the calculation does not include race. In addition to not including race in the calculation and reporting, it included diversity in its development, and has acceptable performance characteristics and potential consequences that do not disproportionately affect any one group of individuals. Performed By: #### L [id number] ####[facility] ([facility])[address] [place] [address] Glucose [Mass/Vol] 90 mg/dL Normal 70-100 [facility] Comment on above: Performed By: #### L [id number] ####[facility] ([facility])[address] [place] [address] Potassium [Moles/Vol] 5.0 mmol/L Normal 3.5-5.1 [facility] Comment on above: Performed By: #### L [id number] ####[facility] ([facility])[address] [place] [address] Sodium [Moles/Vol] 138 mmol/L Normal 136-145 [facility] Comment on above: Performed By: #### L [id number] ####[facility] ([facility])[address] [place] [address] Urea nitrogen [Mass/Vol] 26 mg/dL High 7-25 [facility] Comment on above: Performed By: #### L [id number] ####[facility] ([facility])[address] [place] [address] UREA NITROGEN/CREATININE (MASS RATIO) IN SER/PLAS 20.6 Normal [facility] Comment on above: Performed By: #### L [id number] ####[facility] ([facility])[address] [place] [address] CBC WITH AUTO DIFFERENTIALon 08-19-2024 Basophils (Bld) [#/Vol] 0.02 10*3/uL Normal 0.00-0.20 [facility] Comment on above: Performed By: #### L [id number] ####[facility] (BEAKER)[address] [place] [address] Basophils/100 WBC (Bld) 0.2 % Normal 0.0-1.0 [facility] Comment on above: Performed By: #### L [id number] ####[facility] (BE[facility])[address] [place] [address] Eosinophils (Bld) [#/Vol] 0.01 10*3/uL Normal 0.00-0.50 [facility] Comment on above: Performed By: #### L [id number] ####[facility] ([facility])[address] [place] [address] Eosinophils/100 WBC (Bld) 0.1 % Normal 0.0-6.0 [facility] Comment on above: Performed By: #### L [id number] ####[facility] (BE[facility]ER)[address] [place] [address] Erythrocyte distribution width (RBC) [Ratio] 17.9 % High 11.5-15.0 [facility] Comment on above: Performed By: #### L [id number] ####[facility] (BE[facility]ER)[address] [place] [address] ERYTHROCYTE MEAN CORPUSCULAR HEMOGLOBIN CONCENTRATION (G/DL) BY AUTOMATED 31.8 g/dL Low 32.0-35.0 [facility] Comment on above: Performed By: #### L [id number] ####[facility] (BE[facility]ER)[address] [place] [address] Hematocrit (Bld) [Volume fraction] 24.5 % Low 36.0-48.0 [facility] Comment on above: Performed By: #### L [id number] ####[facility] (BE[facility]ER)[address] [place] [address] Hemoglobin (Bld) [Mass/Vol] 7.8 g/dL Low 12.0-15.0 [facility] Comment on above: Performed By: #### L [id number] ####[facility] (BEAKER)[address] [place] [address] Immature granulocytes (Bld) [#/Vol] 0.22 10*3/uL High 0.00-0.20 [facility] Comment on above: Performed By: #### L [id number] ####[facility] ([facility])[address] [place] [address] Immature granulocytes/100 WBC (Bld) 2.4 % High 0.0-1.0 [facility] Comment on above: Performed By: #### L [id number] ####[facility] ([facility])[address] [place] [address] Lymphocytes (Bld) [#/Vol] 1.06 10*3/uL Low 1.20-4.00 [facility] Comment on above: Performed By: #### L [id number] ####[facility] ([facility])[address] [place] [address] Lymphocytes/100 WBC (Bld) 11.4 % Low 20.0-45.0 [facility] Comment on above: Performed By: #### L [id number] ####[facility] ([facility]ER)[address] [place] [address] MCH (RBC) [Entitic mass] 28.9 pg Normal 27.0-33.0 [facility] Comment on above: Performed By: #### L [id number] ####[facility] (BE[facility])[address] [place] [address] MCV (RBC) [Entitic vol] 90.7 fL Normal 82.0-98.0 [facility] Comment on above: Performed By: #### L [id number] ####[facility] ([facility])[address] [place] [address] Monocytes (Bld) [#/Vol] 0.84 10*3/uL Normal 0.10-1.00 [facility] Comment on above: Performed By: #### L [id number] ####[facility] (BE[facility]ER)[address] [place] [address] Monocytes/100 WBC (Bld) 9.0 % Normal 5.0-12.0 [facility] Comment on above: Performed By: #### L [id number] ####[facility] (BEAKER)[address] [place] [address] Neutrophils (Bld) [#/Vol] 7.14 10*3/uL Normal 1.60-7.60 [facility] Comment on above: Performed By: #### L [id number] ####[facility] ([facility])[address] [place] [address] Neutrophils/100 WBC (Bld) 76.9 % High 40.0-72.0 [facility] Comment on above: Performed By: #### L [id number] ####[facility] ([facility])[address] [place] [address] NRBC (PER 100 WBCS) BY AUTOMATED COUNT 0.0 % Normal 0 [facility] Comment on above: Performed By: #### L [id number] ####[facility] (BEAKER)[address] [place] [address] PLATELETS (10*3/UL) IN BLOOD AUTOMATED COUNT 346 10*3/uL Normal 150-400 [facility] Comment on above: Performed By: #### L [id number] ####[facility] (BEAKER)[address] [place] [address] RBC (Bld) [#/Vol] 2.70 10*6/uL Low 3.80-5.00 [facility] Comment on above: Performed By: #### L [id number] ####[facility] (BEAKER)[address] [place] [address] WBC (Bld) [#/Vol] 9.29 10*3/uL Normal 4.00-10.60 [facility] Comment on above: Performed By: #### L [id number] ####[facility] (BEAKER)[address] [place] [address] 30on 08-18-2024 30 The patient is Moderately Stable - Low risk of patient condition declining or worsening The patient's goals for the shift include comfort and rest The clinical goals for the shift include stable Vs Over the shift, the patient did make progress toward her goals. [facility] 30 Cook Tortilla talked with patient about her home Oxygen that she says she has at home. Patient said she has only had it for as needed, and it has been many years since she has even talked with her home O2 and that her equipment is old, and is unsure of what company she uses. Patient gave automotive service writer permision to call home oxygen companies to see if they are active with her. Cook Tortilla called [employer], [employer], Medical service company, who all said that they are not active with the patient. Patient was able to have a friend go to her home and to look at was company is listed on her equipment at home. Patient showed automotive service writer a picture of her portable tank at home and it had listed [employer] Medical equipment with the number of . Patient gave automotive service writer permission to call number. Cook Tortilla called number and was told that company is now called [employer] and that they use to be called [facility] Medical equipment. Company rep told automotive service writer that patient is no longer currently active with them and that a new order would need to be sent over and all new equipment would need to be sent out. Cook Tortilla went bedside and notified patient of this, and asked patient is she wanted automotive service writer to reset her up with [employer] or if she had any other preference of oxygen company. Patient stated she wanted to be set up with [facility] [employer] instead of [employer]. [facility] 30 The patient is Moderately Stable - Low risk of patient condition declining or worsening The patient's goals for the shift include comfort/rest The clinical goals for the shift include vss Problem: Pain - Adult Goal: Verbalizes/displays adequate comfort level or baseline comfort level Outcome: Progressing Flowsheets (Taken 08/18/2024 0710) Verbalizes/displays adequate comfort level or baseline comfort level: Encourage patient to monitor pain and request assistance Problem: Safety - Adult Goal: Free from fall injury Outcome: Progressing Problem: Discharge Planning Goal: Discharge to home or other facility with appropriate resources Outcome: Progressing Flowsheets (Taken 08/18/2024 0710) Discharge to home or other facility with appropriate resources: Identify barriers to discharge with patient and caregiver Problem: Chronic Conditions and Co-morbidities Goal: Patient's chronic conditions and co-morbidity symptoms are monitored and maintained or improved Outcome: Progressing Flowsheets (Taken 08/18/2024 0710) Care Plan - Patient's Chronic Conditions and Co-Morbidity Symptoms are Monitored and Maintained or Improved: Monitor and assess patient's chronic conditions and comorbid symptoms for stability, deterioration, or improvement Normal [facility] BASIC METABOLIC PANELon 12-2 Anion gap [Moles/Vol] 8 mmol/L Normal 7-20 [facility] Comment on above: Performed By: #### L [id number] #### [facility] ([facility]) [address] [place] [address] Calcium [Mass/Vol] 8.5 mg/dL Low 8.6-10.3 [facility] Comment on above: Performed By: #### L [id number] #### [facility] ([facility]) [address] [place] [address] Chloride [Moles/Vol] 105 mmol/L Normal 98-107 [facility] Comment on above: Performed By: #### L [id number] #### [facility] ([facility]) [address] [place] [address] CO2 [Moles/Vol] 28 mmol/L Normal 21-31 [facility] Comment on above: Performed By: #### L [id number] #### [facility] ([facility]) [address] [place] [address] Creatinine [Mass/Vol] 0.97 mg/dL Normal 0.60-1.20 [facility] Comment on above: Performed By: #### L [id number] #### [facility] ([facility]) [address] [place] [address] GLOMERULAR FILTRATION RATE ML/MIN/1.73 SQ M.PREDICTED 59.8 mL/min/1.73m*2 Low >60.0 [facility] Comment on above: Result Comment: The [facility]???s estimated glomerular filtration rate (eGFR) will no longer include consideration of race in its calculation. The National Kidney Foundation???s eGFR Task Force developed new recommendations for the estimation of the glomerular filtration rate in the [place] They recommend immediate implementation of the new equation refit without the race variable in all laboratories because the calculation does not include race. In addition to not including race in the calculation and reporting, it included diversity in its development, and has acceptable performance characteristics and potential consequences that do not disproportionately affect any one group of individuals. Performed By: #### L [id number] #### [facility] ([facility]) [address] [place] [address] Glucose [Mass/Vol] 136 mg/dL High 70-100 [facility] Comment on above: Performed By: #### L [id number] #### [facility] ([facility]) [address] [place] [address] Potassium [Moles/Vol] 4.4 mmol/L Normal 3.5-5.1 [facility] Comment on above: Performed By: #### L [id number] #### [facility] ([facility]) [address] [place] [address] Sodium [Moles/Vol] 137 mmol/L Normal 136-145 [facility] Comment on above: Performed By: #### L [id number] #### [facility] ([facility]) [address] [place] [address] Urea nitrogen [Mass/Vol] 23 mg/dL Normal 7-25 [facility] Comment on above: Performed By: #### L [id number] #### [facility] ([facility]) [address] [place] [address] UREA NITROGEN/CREATININE (MASS RATIO) IN SER/PLAS 23.7 Normal [facility] Comment on above: Performed By: #### L [id number] #### [facility] ([facility]) [address] [place] [address] CBC WITH AUTO DIFFERENTIALon 08-18-2024 Basophils (Bld) [#/Vol] 0.01 10*3/uL Normal 0.00-0.20 [facility] Comment on above: Performed By: #### L [id number] #### [facility] ([facility]) [address] [place] [address] Basophils/100 WBC (Bld) 0.1 % Normal 0.0-1.0 [facility] Comment on above: Performed By: #### L [id number] #### [facility] ([facility]) [address] [place] [address] Eosinophils (Bld) [#/Vol] 0.00 10*3/uL Normal 0.00-0.50 [facility] Comment on above: Performed By: #### L [id number] #### [facility] ([facility]) [address] [place] [address] Eosinophils/100 WBC (Bld) 0.0 % Normal 0.0-6.0 [facility] Comment on above: Performed By: #### L [id number] #### [facility] ([facility]) [address] [place] [address] Erythrocyte distribution width (RBC) [Ratio] 17.8 % High 11.5-15.0 [facility] Comment on above: Performed By: #### L [id number] #### [facility] ([facility]) [address] [place] [address] ERYTHROCYTE MEAN CORPUSCULAR HEMOGLOBIN CONCENTRATION (G/DL) BY AUTOMATED 31.5 g/dL Low 32.0-35.0 [facility] Comment on above: Performed By: #### L [id number] #### [facility] ([facility]) [address] [place] [address] Hematocrit (Bld) [Volume fraction] 25.1 % Low 36.0-48.0 [facility] Comment on above: Performed By: #### L [id number] #### [facility] ([facility]) [address] [place] [address] Hemoglobin (Bld) [Mass/Vol] 7.9 g/dL Low 12.0-15.0 [facility] Comment on above: Performed By: #### L [id number] #### [facility] ([facility]) [address] [place] [address] Immature granulocytes (Bld) [#/Vol] 0.23 10*3/uL High 0.00-0.20 [facility] Comment on above: Performed By: #### L [id number] #### [facility] ([facility]) [address] [facility] [place] [address] Immature granulocytes/100 WBC (Bld) 2.6 % High 0.0-1.0 [facility] Comment on above: Performed By: #### L [id number] #### [facility] ([facility]) [address] [place] [address] Lymphocytes (Bld) [#/Vol] 0.89 10*3/uL Low 1.20-4.00 [facility] Comment on above: Performed By: #### L [id number] #### [facility] ([facility]) [address] [place] [address] Lymphocytes/100 WBC (Bld) 10.2 % Low 20.0-45.0 [facility] Comment on above: Performed By: #### L [id number] #### [facility] ([facility]) [address] [facility] [place] [address] MCH (RBC) [Entitic mass] 28.3 pg Normal 27.0-33.0 [facility] Comment on above: Performed By: #### L [id number] #### [facility] ([facility]) [address] [facility] [address] MCV (RBC) [Entitic vol] 90.0 fL Normal 82.0-98.0 [facility] Comment on above: Performed By: #### L [id number] #### [facility] ([facility]) [address] [facility] [place] [address] Monocytes (Bld) [#/Vol] 0.69 10*3/uL Normal 0.10-1.00 [facility] Comment on above: Performed By: #### L [id number] #### [facility] ([facility]) [address] [place] [address] Monocytes/100 WBC (Bld) 7.9 % Normal 5.0-12.0 [facility] Comment on above: Performed By: #### L [id number] #### [facility] ([facility]) [address] [place] [address] Neutrophils (Bld) [#/Vol] 6.94 10*3/uL Normal 1.60-7.60 [facility] Comment on above: Performed By: #### L [id number] #### [facility] ([facility]) [address] [place] [address] Neutrophils/100 WBC (Bld) 79.2 % High 40.0-72.0 [facility] Comment on above: Performed By: #### L [id number] #### [facility] ([facility]) [address] [place] [address] NRBC (PER 100 WBCS) BY AUTOMATED COUNT 0.0 % Normal 0 [facility] Comment on above: Performed By: #### L [id number] #### [facility] ([facility]) [address] [place] [address] PLATELETS (10*3/UL) IN BLOOD AUTOMATED COUNT 359 10*3/uL Normal 150-400 [facility] Comment on above: Performed By: #### L [id number] #### [facility] ([facility]) [address] [place] [address] RBC (Bld) [#/Vol] 2.79 10*6/uL Low 3.80-5.00 [facility] Comment on above: Performed By: #### L [id number] #### [facility] ([facility]) [address] [place] [address] WBC (Bld) [#/Vol] 8.76 10*3/uL Normal 4.00-10.60 [facility] Comment on above: Performed By: #### L [id number] #### [facility] ([facility]) [address] [place] [address] NURSNOTEon 08-18-2024 NURSNOTE The findings from this face to face encounter indicate the reason this patient requires oxygen. Patient requires 2liters home oxygen with ambulation per stationary concentrator via NC/min with gas portability and pulse dose conserving device at 2 liters. Patient is diagnosed with a chronic condition requiring the use of oxygen to maintain stability outside the hospital setting with ambulation. HOME O2 EVAL REVIEWED AND PATIENT REQUIRES OXYGEN DUE TO SPO2 87% ON ROOM AIR WITH AMBULATION. Patient educated on the need of 2 liters oxygen with ambulation d/t COPD. No questions or concerns at this time. 99 months COPD Normal [facility] 30on 08-17-2024 30 The patient is Moderately Stable - Low risk of patient condition declining or worsening The patient's goals for the shift include comfort and rest The clinical goals for the shift include stable VS Over the shift, the patient did make progress toward her goals. Normal [facility] 30 The patient is Moderately Stable - Low risk of patient condition declining or worsening The patient's goals for the shift include eat after EGD The clinical goals for the shift include complete EGD Over the shift, the patient did not make progress toward the following goals. Barriers to progression include delay in procedure and hospital routine. Recommendations to address these barriers include communicate with MD and pt to be sure needs are being met Problem: Pain - Adult Goal: Verbalizes/displays adequate comfort level or baseline comfort level Outcome: Progressing . Normal [facility] 30 Daily Case Managemen t Update Multidisciplinary rounds have been completed. Barriers to Discharge: Patient is to go for EGD/push/colonoscopy today with GI. Cardiology following, patient to get cardiac MRI tomorrow, and to follow blood cultures. Discharge dispo: pending clinical course, PT/OT is ordered and evals pending. Patient is home with goal to return home. Home O2 eval might be needed on discharge if oxygen is unable to be weaned off. Diet: Dietary Orders (From admission, onward) Start Ordered 08/17/24 0001 Diet NPO Diet effective midnight Comments: Sips with medications Question: Reason for NPO: Answer: Operation/Procedure 08/16/24 1040 08/16/24 1311 Special Kitchen Request Once Comments: Clear liquid tray 08/16/24 1310 08/16/24 1238 Special Kitchen Request Once Comments: 3 powerades to nurses station 08/16/24 1238 Physician Expected Discharge Date: 08/16/2024 Discharge Delays: PT Six Click Score: 24 OT Six Click Score: PT Recommendations: OT Recommendations: New Consults: Therapy Orders (From admission, onward) Start Ordered 08/17/24 1019 OT eval and treat Until therapy completed Question: Reason for OT? Answer: weakness 08/17/24 1019 08/17/24 1019 PT eval and treat Until therapy completed Question: Reason for PT? Answer: weakness 08/17/24 1019 Normal [facility] 30 The patient is Moderately Stable - Low risk of patient condition declining or worsening The patient's goals for the shift include rest, comfort The clinical goals for the shift include vss, safety Over the shift, the patient did make progress toward the following goals. Problem: Pain - Adult Goal: Verbalizes/displays adequate comfort level or baseline comfort level Outcome: Progressing Flowsheets (Taken 08/16/20241944) Verbalizes/displays adequate comfort level or baseline comfort level: Encourage patient to monitor pain and request assistance Assess pain using appropriate pain scale Administer analgesics based on type and severity of pain and evaluate response Implement non-pharmacological measures as appropriate and evaluate response Consider cultural and social influences on pain and pain management Notify Licensed Independent Practitioner if interventions unsuccessful or patient reports new pain Problem: Safety - Adult Goal: Free from fall injury Outcome: Progressing Flowsheets (Taken 08/16/20241944) Free from fall injury: Assess patient frequently for physical needs Identify cognitive and physical deficits and behaviors that affect risk of falls [place] fall precautions as indicated by assessment Educate patient/family on patient safety, including physical limitations Instruct patient to call for assistance with activity based on assessment Modify environment to reduce risk of injury Consider OT/PT consult to assist with strengthening/mobilit y Problem: Discharge Planning Goal: Discharge to home or other facility with appropriate resources Outcome: Progressing Flowsheets (Taken 08/16/20241944) Discharge to home or other facility with appropriate resources: Identify barriers to discharge with patient and caregiver Arrange for needed discharge resources and transportation as appropriate Identify discharge learning needs (meds, wound care, etc) Arrange for interpreters to assist at discharge as needed Refer to discharge planning if patient needs post-hospital services based on physician order or complex needs related to functional status, cognitive ability or social support system Problem: Chronic Conditions and Co-morbidities Goal: Patient's chronic conditions and co-morbidity symptoms are monitored and maintained or improved Outcome: Progressing Flowsheets (Taken 08/16/20241944) Care Plan - Patient's Chronic Conditions and Co-Morbidity Symptoms are Monitored and Maintained or Improved: Monitor and assess patient's chronic conditions and comorbid symptoms for stability, deterioration, or improvement Collaborate with multidisciplinary team to address chronic and comorbid conditions and prevent exacerbation or deterioration Update acute care plan with appropriate goals if chronic or comorbid symptoms are exacerbated and prevent overall improvement and discharge Normal [facility] BASIC METABOLIC PANELon 12-2 Anion gap [Moles/Vol] 9 mmol/L Normal 7-20 [facility] Comment on above: Performed By: #### L [id number] #### [facility] ([facility]) [address] [place] [address] Calcium [Mass/Vol] 8.8 mg/dL Normal 8.6-10.3 [facility] Comment on above: Performed By: #### L [id number] #### [facility] ([facility]) [address] [place] [address] Chloride [Moles/Vol] 106 mmol/L Normal 98-107 [facility] Comment on above: Performed By: #### L [id number] #### [facility] ([facility]) [address] [place] [address] CO2 [Moles/Vol] 30 mmol/L Normal 21-31 [facility] Comment on above: Performed By: #### L [id number] #### [facility] ([facility]) [address] [place] [address] Creatinine [Mass/Vol] 0.98 mg/dL Normal 0.60-1.20 [facility] Comment on above: Performed By: #### L [id number] #### [facility] ([facility]) [address] [place] [address] GLOMERULAR FILTRATION RATE ML/MIN/1.73 SQ M.PREDICTED 59.1 mL/min/1.73m*2 Low >60.0 [facility] Comment on above: Result Comment: The [facility]???s estimated glomerular filtration rate (eGFR) will no longer include consideration of race in its calculation. The National Kidney Foundation???s eGFR Task Force developed new recommendations for the estimation of the glomerular filtration rate in the [place] They recommend immediate implementation of the new equation refit without the race variable in all laboratories because the calculation does not include race. In addition to not including race in the calculation and reporting, it included diversity in its development, and has acceptable performance characteristics and potential consequences that do not disproportionately affect any one group of individuals. Performed By: #### L [id number] #### [facility] ([facility]) [address] [place] [address] Glucose [Mass/Vol] 93 mg/dL Normal 70-100 [facility] Comment on above: Performed By: #### L [id number] #### [facility] ([facility]) [address] [place] [address] Potassium [Moles/Vol] 4.5 mmol/L Normal 3.5-5.1 [facility] Comment on above: Performed By: #### L [id number] #### [facility] ([facility]) [address] [place] [address] Sodium [Moles/Vol] 140 mmol/L Normal 136-145 [facility] Comment on above: Performed By: #### L [id number] #### [facility] ([facility]) [address] [place] [address] Urea nitrogen [Mass/Vol] 29 mg/dL High 7-25 [facility] Comment on above: Performed By: #### L [id number] #### [facility] ([facility]) [address] [place] [address] UREA NITROGEN/CREATININE (MASS RATIO) IN SER/PLAS 29.6 Normal [facility] Comment on above: Performed By: #### L [id number] #### [facility] ([facility]) [address] [place] [address] CBC WITH AUTO DIFFERENTIALon 08-17-2024 Basophils (Bld) [#/Vol] 0.02 10*3/uL Normal 0.00-0.20 [facility] Comment on above: Performed By: #### L [id number] #### [facility] ([facility]) [address] [place] [address] Basophils/100 WBC (Bld) 0.2 % Normal 0.0-1.0 [facility] Comment on above: Performed By: #### L [id number] #### [facility] ([facility]) [address] [place] [address] Eosinophils (Bld) [#/Vol] 0.01 10*3/uL Normal 0.00-0.50 [facility] Comment on above: Performed By: #### L [id number] #### [facility] ([facility]) [address] [place] [address] Eosinophils/100 WBC (Bld) 0.1 % Normal 0.0-6.0 [facility] Comment on above: Performed By: #### L [id number] #### [facility] ([facility]) [address] [place] [address] Erythrocyte distribution width (RBC) [Ratio] 17.7 % High 11.5-15.0 [facility] Comment on above: Performed By: #### L [id number] #### [facility] ([facility]) [address] [place] [address] ERYTHROCYTE MEAN CORPUSCULAR HEMOGLOBIN CONCENTRATION (G/DL) BY AUTOMATED 31.3 g/dL Low 32.0-35.0 [facility] Comment on above: Performed By: #### L [id number] #### [facility] ([facility]) [address] [place] [address] Hematocrit (Bld) [Volume fraction] 26.5 % Low 36.0-48.0 [facility] Comment on above: Performed By: #### L [id number] #### [facility] ([facility]) [address] [place] [address] Hemoglobin (Bld) [Mass/Vol] 8.3 g/dL Low 12.0-15.0 [facility] Comment on above: Performed By: #### L [id number] #### [facility] ([facility]) [address] [place] [address] Immature granulocytes (Bld) [#/Vol] 0.24 10*3/uL High 0.00-0.20 [facility] Comment on above: Performed By: #### L [id number] #### [facility] ([facility]) [address] [facility] [place] [address] Immature granulocytes/100 WBC (Bld) 2.0 % High 0.0-1.0 [facility] Comment on above: Performed By: #### L [id number] #### [facility] ([facility]) [address] [facility] [place] [address] Lymphocytes (Bld) [#/Vol] 1.11 10*3/uL Low 1.20-4.00 [facility] Comment on above: Performed By: #### L [id number] #### [facility] ([facility]) [address] [place] [address] Lymphocytes/100 WBC (Bld) 9.0 % Low 20.0-45.0 [facility] Comment on above: Performed By: #### L [id number] #### [facility] ([facility]) [address] [place] [address] MCH (RBC) [Entitic mass] 27.9 pg Normal 27.0-33.0 [facility] Comment on above: Performed By: #### L [id number] #### [facility] ([facility]) [address] [place] [address] MCV (RBC) [Entitic vol] 88.9 fL Normal 82.0-98.0 [facility] Comment on above: Performed By: #### L [id number] #### [facility] ([facility]) [address] [place] [address] Monocytes (Bld) [#/Vol] 1.03 10*3/uL High 0.10-1.00 [facility] Comment on above: Performed By: #### L [id number] #### [facility] ([facility]) [address] [place] [address] Monocytes/100 WBC (Bld) 8.4 % Normal 5.0-12.0 [facility] Comment on above: Performed By: #### L [id number] #### [facility] ([facility]) [address] [place] [address] Neutrophils (Bld) [#/Vol] 9.86 10*3/uL High 1.60-7.60 [facility] Comment on above: Performed By: #### L [id number] #### [facility] ([facility]) [address] [place] [address] Neutrophils/100 WBC (Bld) 80.3 % High 40.0-72.0 [facility] Comment on above: Performed By: #### L [id number] #### [facility] ([facility]) [address] [place] [address] NRBC (PER 100 WBCS) BY AUTOMATED COUNT 0.0 % Normal 0 [facility] Comment on above: Performed By: #### L [id number] #### [facility] ([facility]) [address] [place] [address] PLATELETS (10*3/UL) IN BLOOD AUTOMATED COUNT 389 10*3/uL Normal 150-400 [facility] Comment on above: Performed By: #### L [id number] #### [facility] [place]) [address] [place] [address] RBC (Bld) [#/Vol] 2.98 10*6/uL Low 3.80-5.00 [facility] Comment on above: Performed By: #### L [id number] #### [facility] ([facility]) [address] [place] [address] WBC (Bld) [#/Vol] 12.27 10*3/uL High 4.00-10.60 [facility] Comment on above: Performed By: #### L [id number] #### [facility] ([facility]) [address] [place] [address] HISTOLOGY - TISSUE EXAMon LAB AP CASE REPORT Normal [facility] Comment on above: Result Comment: Surg ical Pathology Case: [id number] Authorizing Provider: Jl Hill MD Collected: 08/17/2024 1511 Ordering Location: [facility] Received: 08/17/2024 1612 Pathologist: Mary Jo Cruz MD Specimens: A) - Large Intestine, Cecum, Cecum Polyp r/o Adenoma B) - Large Intestine, Sigmoid Colon, Sigmoid Polyp r/o Adenoma Performed By: #### L [id number] ####[facility] ([facility])[address] [place] [address] LAB AP CLINICAL INFORMATION Order Diagnoses Normal [facility] Comment on above: Result Comment: R07. 9 - Chest pain [ICD-10-CM] D64.9 - Anemia, unspecified type [ICD-10-CM] K92.1 - Melena [ICD-10-CM] Performed By: #### L [id number] ####[facility] ([facility])[address] [place] [address] LAB AP GROSS DESCRIPTION [facility] Comment on above: Result Comment: A. L arge Intestine, Cecum. The specimen is received in formalin labeled Terri M Elena and Cecum Polyp r/o Adenoma. It consists of 3 pieces of mari-pink, glistening, irregular mucosal tissue ranging from 0.3 cm to 0.6 cm in greatest dimension. The specimen is submitted in toto in 1 cassette. Sae [employer] B. Large Intestine, Sigmoid Colon. The specimen is received in formalin labeled Seneca M Elena and Sigmoid Polyp r/o Adenoma. It consists of a 0.4 x 0.2 x 0.2 cm mari-pink, glistening, polypoid mucosal tissue. The specimen is submitted in toto in 1 cassette. Dario [employer] Performed By: #### L [id number] ####[facility] ([facility])[address] [place] [address] LAB AP MICROSCOPIC DESCRIPTION Microscopic examination performed. [facility] Comment on above: Performed By: #### L [id number] ####[facility] ([facility])[address] [place] [address] LAB AP REPORT FINAL DIAGNOSIS NARRATIVE [facility] Comment on above: Result Comment: A. C olon, cecum, biopsy: - Tubular adenoma B. Colon, sigmoid, biopsy: - Tubular adenoma Performed By: #### L [id number] ####[facility] ([facility])[address] [place] [address] HPon 08-17-2024 HP H&P reviewed. The patient was examined and there are no changes to the H&P. Normal [facility] NURSNOTEon 08-17-2024 NURSNOTE Cook Tortilla received report from Hortencia FRANKLIN form PACU, pt able to have diet when she returns to floor. Normal [facility] NURSNOTE Repeat colonoscopy only as needed r/t age. Recommend Capsule Endoscopy (outpatient). May resume a Regular Diet. May resume all medications as ordered by admitting physician. Normal [facility] NURSNOTE Colonoscopy Findings : Hemorrhoids; Sigmoid Colon Polyp; Cecum Colon Polyps x2; Single Divertculi in Cecum Colon; Colonic Arteriovenous Malformations (AVM) - Ablated using Argon Plasma Coagulation (APC); Terminal Ileum appeared normal on exam; No active bleeding or old blood seen on exam Normal [facility] NURSNOTE EGD/PUSH Findings: Gastric, Duodenum and Jejunum Arteriovenous Malformations (AVM) - Ablated using Argon Plasma Coagulation (APC) Normal [facility] NURSNOTE Pt intubated for deeper sedation to relax the stomach and bowels. Normal [facility] POCT GLUCOSE METER UNSOLICIT ED RESULTSon 08-17-2024 Glucose [Mass/Vol] 91 mg/dL Normal 70-105 [facility] Comment on above: Order Comment: Waive d Testing in the ED is performed under the ED CLIA certificate #[id number]. Result Comment: summer varela Performed By: #### L [id number] ####[facility] ([facility])[address] [place] [address] 30on 08-16-2024 30 The patient is Moderately Stable - Low risk of patient condition declining or worsening The patient's goals for the shift include rest, comfort The clinical goals for the shift include vss, safety Over the shift, the patient did make progress toward the following goals. Problem: Pain - Adult Goal: Verbalizes/displays adequate comfort level or baseline comfort level Outcome: Progressing Problem: Safety - Adult Goal: Free from fall injury Outcome: Progressing Problem: Discharge Planning Goal: Discharge to home or other facility with appropriate resources Outcome: Progressing Problem: Chronic Conditions and Co-morbidities Goal: Patient's chronic conditions and co-morbidity symptoms are monitored and maintained or improved Outcome: Progressing Normal [facility] BASIC METABOLIC PANELon 07-24 Anion gap [Moles/Vol] 11 mmol/L Normal 7-20 [facility] Comment on above: Performed By: #### L [id number] ####[facility] ([facility])[address] [place] [address] Calcium [Mass/Vol] 9.1 mg/dL Normal 8.6-10.3 [facility] Comment on above: Performed By: #### L [id number] ####[facility] ([facility])[address] [place] [address] Chloride [Moles/Vol] 102 mmol/L Normal 98-107 [facility] Comment on above: Performed By: #### L [id number] ####[facility] ([facility])[address] [place] [address] CO2 [Moles/Vol] 25 mmol/L Normal 21-31 [facility] Comment on above: Performed By: #### L [id number] ####[facility] ([facility])[address] [place] [address] Creatinine [Mass/Vol] 1.32 mg/dL High 0.60-1.20 [facility] Comment on above: Performed By: #### L [id number] ####[facility] ([facility])[address] [place] [address] GLOMERULAR FILTRATION RATE ML/MIN/1.73 SQ M.PREDICTED 41.3 mL/min/1.73m*2 Low >60.0 [facility] Comment on above: Result Comment: The [facility]???s estimated glomerular filtration rate (eGFR) will no longer include consideration of race in its calculation. The National Kidney Foundation???s eGFR Task Force developed new recommendations for the estimation of the glomerular filtration rate in the [place] They recommend immediate implementation of the new equation refit without the race variable in all laboratories because the calculation does not include race. In addition to not including race in the calculation and reporting, it included diversity in its development, and has acceptable performance characteristics and potential consequences that do not disproportionately affect any one group of individuals. Performed By: #### L [id number] ####[facility] ([facility])[address] [place] [address] Glucose [Mass/Vol] 163 mg/dL High 70-100 [facility] Comment on above: Performed By: #### L [id number] ####[facility] ([facility])[address] [place] [address] Potassium [Moles/Vol] 4.4 mmol/L Normal 3.5-5.1 [facility] Comment on above: Performed By: #### L [id number] ####[facility] ([facility])[address] [place] [address] Sodium [Moles/Vol] 134 mmol/L Low 136-145 [facility] Comment on above: Performed By: #### L [id number] ####[facility] ([facility])[address] [place] [address] Urea nitrogen [Mass/Vol] 40 mg/dL High 7-25 [facility] Comment on above: Performed By: #### L [id number] ####[facility] ([facility])[address] [place] [address] UREA NITROGEN/CREATININE (MASS RATIO) IN SER/PLAS 30.3 Normal [facility] Comment on above: Performed By: #### L [id number] ####[facility] ([facility])[address] [place] [address] CBC WITH AUTO DIFFERENTIALon 08-16-2024 Basophils (Bld) [#/Vol] 0.02 10*3/uL Normal 0.00-0.20 [facility] Comment on above: Performed By: #### L [id number] #### [facility] ([facility]) [address] [place] [address] Basophils/100 WBC (Bld) 0.1 % Normal 0.0-1.0 [facility] Comment on above: Performed By: #### L [id number] #### [facility] ([facility]) [address] [place] [address] Eosinophils (Bld) [#/Vol] 0.00 10*3/uL Normal 0.00-0.50 [facility] Comment on above: Performed By: #### L [id number] #### [facility] ([facility]) [address] [place] [address] Eosinophils/100 WBC (Bld) 0.0 % Normal 0.0-6.0 [facility] Comment on above: Performed By: #### L [id number] #### [facility] ([facility]) [address] [place] [address] Erythrocyte distribution width (RBC) [Ratio] 17.8 % High 11.5-15.0 [facility] Comment on above: Performed By: #### L [id number] #### [facility] ([facility]) [address] [place] [address] ERYTHROCYTE MEAN CORPUSCULAR HEMOGLOBIN CONCENTRATION (G/DL) BY AUTOMATED 31.7 g/dL Low 32.0-35.0 [facility] Comment on above: Performed By: #### L [id number] #### [facility] ([facility]) [address] [place] [address] Hematocrit (Bld) [Volume fraction] 26.5 % Low 36.0-48.0 [facility] Comment on above: Performed By: #### L [id number] #### [facility] ([facility]) [address] [place] [address] Hemoglobin (Bld) [Mass/Vol] 8.4 g/dL Low 12.0-15.0 [facility] Comment on above: Performed By: #### L [id number] #### [facility] ([facility]) [address] [place] [address] Immature granulocytes (Bld) [#/Vol] 0.24 10*3/uL High 0.00-0.20 [facility] Comment on above: Performed By: #### L [id number] #### [facility] ([facility]) [address] [place] [address] Immature granulocytes/100 WBC (Bld) 1.6 % High 0.0-1.0 [facility] Comment on above: Performed By: #### L [id number] #### [facility] ([facility]) [address] [place] [address] Lymphocytes (Bld) [#/Vol] 0.50 10*3/uL Low 1.20-4.00 [facility] Comment on above: Performed By: #### L [id number] #### [facility] ([facility]) [address] [place] [address] Lymphocytes/100 WBC (Bld) 3.3 % Low 20.0-45.0 [facility] Comment on above: Performed By: #### L [id number] #### [facility] ([facility]) [address] [place] [address] MCH (RBC) [Entitic mass] 28.5 pg Normal 27.0-33.0 [facility] Comment on above: Performed By: #### L [id number] #### [facility] ([facility]) [address] [place] [address] MCV (RBC) [Entitic vol] 89.8 fL Normal 82.0-98.0 [facility] Comment on above: Performed By: #### L [id number] #### [facility] ([facility]) [address] [place] [address] Monocytes (Bld) [#/Vol] 0.81 10*3/uL Normal 0.10-1.00 [facility] Comment on above: Performed By: #### L [id number] #### [facility] ([facility]) [address] [place] [address] Monocytes/100 WBC (Bld) 5.3 % Normal 5.0-12.0 [facility] Comment on above: Performed By: #### L [id number] #### [facility] ([facility]) [address] [place] [address] Neutrophils (Bld) [#/Vol] 13.71 10*3/uL High 1.60-7.60 [facility] Comment on above: Performed By: #### L [id number] #### [facility] ([facility]) [address] [place] [address] Neutrophils/100 WBC (Bld) 89.7 % High 40.0-72.0 [facility] Comment on above: Performed By: #### L [id number] #### [facility] ([facility]) [address] [place] [address] NRBC (PER 100 WBCS) BY AUTOMATED COUNT 0.0 % Normal 0 [facility] Comment on above: Performed By: #### L [id number] #### [facility] ([facility]) [address] [place] [address] PLATELETS (10*3/UL) IN BLOOD AUTOMATED COUNT 434 10*3/uL High 150-400 [facility] Comment on above: Performed By: #### L [id number] #### [facility] ([facility]) [address] [place] [address] RBC (Bld) [#/Vol] 2.95 10*6/uL Low 3.80-5.00 [facility] Comment on above: Performed By: #### L [id number] #### [facility] ([facility]) [address] [place] [address] WBC (Bld) [#/Vol] 15.28 10*3/uL High 4.00-10.60 [facility] Comment on above: Performed By: #### L [id number] #### [facility] ([facility]) [address] [place] [address] OCCULT BLOOD X 1, STOOLon HEMOGLOBIN GASTROINTESTINAL PRESENCE IN STOOL Positive Abnormal Negative, None Detected [facility] Comment on above: Performed By: #### L [id number] #### [facility] ([facility]) [address] [place] [address] 30on 08-15-2024 30 The patient is Moderately Stable - Low risk of patient condition declining or worsening The patient's goals for the shift include rest, comfort The clinical goals for the shift include vss, safety Over the shift, the patient did make progress toward the following goals. Problem: Pain - Adult Goal: Verbalizes/displays adequate comfort level or baseline comfort level Outcome: Progressing Flowsheets (Taken 08/15/20241999) Verbalizes/displays adequate comfort level or baseline comfort level: Encourage patient to monitor pain and request assistance Assess pain using appropriate pain scale Administer analgesics based on type and severity of pain and evaluate response Implement non-pharmacological measures as appropriate and evaluate response Consider cultural and social influences on pain and pain management Notify Licensed Independent Practitioner if interventions unsuccessful or patient reports new pain Problem: Safety - Adult Goal: Free from fall injury Outcome: Progressing Flowsheets (Taken 08/15/20241999) Free from fall injury: Assess patient frequently for physical needs Identify cognitive and physical deficits and behaviors that affect risk of falls Modify environment to reduce risk of injury [place] fall precautions as indicated by assessment Educate patient/family on patient safety, including physical limitations Instruct patient to call for assistance with activity based on assessment Consider OT/PT consult to assist with strengthening/mobilit y Problem: Discharge Planning Goal: Discharge to home or other facility with appropriate resources Outcome: Progressing Flowsheets (Taken 08/15/20241999) Discharge to home or other facility with appropriate resources: Identify barriers to discharge with patient and caregiver Arrange for needed discharge resources and transportation as appropriate Identify discharge learning needs (meds, wound care, etc) Arrange for interpreters to assist at discharge as needed Refer to discharge planning if patient needs post-hospital services based on physician order or complex needs related to functional status, cognitive ability or social support system Problem: Chronic Conditions and Co-morbidities Goal: Patient's chronic conditions and co-morbidity symptoms are monitored and maintained or improved Outcome: Progressing Flowsheets (Taken 08/15/20241999) Care Plan - Patient's Chronic Conditions and Co-Morbidity Symptoms are Monitored and Maintained or Improved: Monitor and assess patient's chronic conditions and comorbid symptoms for stability, deterioration, or improvement Collaborate with multidisciplinary team to address chronic and comorbid conditions and prevent exacerbation or deterioration Update acute care plan with appropriate goals if chronic or comorbid symptoms are exacerbated and prevent overall improvement and discharge Normal [facility] 30 The patient is Moderately Stable - Low risk of patient condition declining or worsening The patient's goals for the shift include rest, comfort The clinical goals for the shift include vss, safety Over the shift, the patient did make progress toward the following goals. Problem: Pain - Adult Goal: Verbalizes/displays adequate comfort level or baseline comfort level Flowsheets (Taken 08/14/20242008) Verbalizes/displays adequate comfort level or baseline comfort level: Encourage patient to monitor pain and request assistance Assess pain using appropriate pain scale Administer analgesics based on type and severity of pain and evaluate response Implement non-pharmacological measures as appropriate and evaluate response Consider cultural and social influences on pain and pain management Notify Licensed Independent Practitioner if interventions unsuccessful or patient reports new pain Problem: Safety - Adult Goal: Free from fall injury Flowsheets (Taken 08/14/20242008) Free from fall injury: Assess patient frequently for physical needs Identify cognitive and physical deficits and behaviors that affect risk of falls [place] fall precautions as indicated by assessment Educate patient/family on patient safety, including physical limitations Instruct patient to call for assistance with activity based on assessment Modify environment to reduce risk of injury Consider OT/PT consult to assist with strengthening/mobilit y Problem: Discharge Planning Goal: Discharge to home or other facility with appropriate resources Flowsheets (Taken 08/14/20242008) Discharge to home or other facility with appropriate resources: Identify barriers to discharge with patient and caregiver Arrange for needed discharge resources and transportation as appropriate Identify discharge learning needs (meds, wound care, etc) Arrange for interpreters to assist at discharge as needed Refer to discharge planning if patient needs post-hospital services based on physician order or complex needs related to functional status, cognitive ability or social support system Problem: Chronic Conditions and Co-morbidities Goal: Patient's chronic conditions and co-morbidity symptoms are monitored and maintained or improved Flowsheets (Taken 08/14/20242008) Care Plan - Patient's Chronic Conditions and Co-Morbidity Symptoms are Monitored and Maintained or Improved: Monitor and assess patient's chronic conditions and comorbid symptoms for stability, deterioration, or improvement Collaborate with multidisciplinary team to address chronic and comorbid conditions and prevent exacerbation or deterioration Update acute care plan with appropriate goals if chronic or comorbid symptoms are exacerbated and prevent overall improvement and discharge Normal [facility] BASIC METABOLIC PANELon 12-2 Anion gap [Moles/Vol] 10 mmol/L Normal 7-20 [facility] Comment on above: Performed By: #### L [id number] ####[facility] ([facility])[address] [place] [address] Calcium [Mass/Vol] 8.7 mg/dL Normal 8.6-10.3 [facility] Comment on above: Performed By: #### L [id number] ####[facility] ([facility])[address] [place] [address] Chloride [Moles/Vol] 101 mmol/L Normal 98-107 [facility] Comment on above: Performed By: #### L [id number] ####[facility] ([facility])[address] [place] [address] CO2 [Moles/Vol] 28 mmol/L Normal 21-31 [facility] Comment on above: Performed By: #### L [id number] ####[facility] ([facility])[address] [place] [address] Creatinine [Mass/Vol] 1.73 mg/dL High 0.60-1.20 [facility] Comment on above: Performed By: #### L [id number] ####[facility] ([facility])[address] [place] [address] GLOMERULAR FILTRATION RATE ML/MIN/1.73 SQ M.PREDICTED 29.9 mL/min/1.73m*2 Low >60.0 [facility] Comment on above: Result Comment: The [facility]???s estimated glomerular filtration rate (eGFR) will no longer include consideration of race in its calculation. The National Kidney Foundation???s eGFR Task Force developed new recommendations for the estimation of the glomerular filtration rate in the [place] They recommend immediate implementation of the new equation refit without the race variable in all laboratories because the calculation does not include race. In addition to not including race in the calculation and reporting, it included diversity in its development, and has acceptable performance characteristics and potential consequences that do not disproportionately affect any one group of individuals. Performed By: #### L [id number] ####[facility] ([facility])[address] [place] [address] Glucose [Mass/Vol] 126 mg/dL High 70-100 [facility] Comment on above: Performed By: #### L [id number] ####[facility] ([facility])[address] [place] [address] Potassium [Moles/Vol] 4.4 mmol/L Normal 3.5-5.1 [facility] Comment on above: Performed By: #### L [id number] ####[facility] ([facility])[address] [place] [address] Sodium [Moles/Vol] 135 mmol/L Low 136-145 [facility] Comment on above: Performed By: #### L [id number] ####[facility] ([facility])[address] [place] [address] Urea nitrogen [Mass/Vol] 49 mg/dL High 7-25 [facility] Comment on above: Performed By: #### L [id number] ####[facility] ([facility])[address] [place] [address] UREA NITROGEN/CREATININE (MASS RATIO) IN SER/PLAS 28.3 Normal [facility] Comment on above: Performed By: #### L [id number] ####[facility] ([facility])[address] [place] [address] CBC WITH AUTO DIFFERENTIALon 08-15-2024 Basophils (Bld) [#/Vol] 0.04 10*3/uL Normal 0.00-0.20 [facility] Comment on above: Performed By: #### L [id number] #### [facility] ([facility]) [address] [place] [address] Basophils/100 WBC (Bld) 0.4 % Normal 0.0-1.0 [facility] Comment on above: Performed By: #### L [id number] #### [facility] ([facility]) [address] [place] [address] Eosinophils (Bld) [#/Vol] 0.03 10*3/uL Normal 0.00-0.50 [facility] Comment on above: Performed By: #### L [id number] #### [facility] ([facility]) [address] [place] [address] Eosinophils/100 WBC (Bld) 0.3 % Normal 0.0-6.0 [facility] Comment on above: Performed By: #### L [id number] #### [facility] ([facility]) [address] [place] [address] Erythrocyte distribution width (RBC) [Ratio] 16.2 % High 11.5-15.0 [facility] Comment on above: Performed By: #### L [id number] #### [facility] ([facility]) [address] [place] [address] ERYTHROCYTE MEAN CORPUSCULAR HEMOGLOBIN CONCENTRATION (G/DL) BY AUTOMATED 31.2 g/dL Low 32.0-35.0 [facility] Comment on above: Performed By: #### L [id number] #### [facility] ([facility]) [address] [place] [address] Hematocrit (Bld) [Volume fraction] 22.1 % Low 36.0-48.0 [facility] Comment on above: Performed By: #### L [id number] #### [facility] ([facility]) [address] [place] [address] Hemoglobin (Bld) [Mass/Vol] 6.9 g/dL Low 12.0-15.0 [facility] Comment on above: Performed By: #### L [id number] #### [facility] ([facility]) [address] [place] [address] Immature granulocytes (Bld) [#/Vol] 0.18 10*3/uL Normal 0.00-0.20 [facility] Comment on above: Performed By: #### L [id number] #### [facility] ([facility]) [address] [place] [address] Immature granulocytes/100 WBC (Bld) 1.7 % High 0.0-1.0 [facility] Comment on above: Performed By: #### L [id number] #### [facility] ([facility]) [address] [place] [address] Lymphocytes (Bld) [#/Vol] 1.41 10*3/uL Normal 1.20-4.00 [facility] Comment on above: Performed By: #### L [id number] #### [facility] ([facility]) [address] [place] [address] Lymphocytes/100 WBC (Bld) 13.3 % Low 20.0-45.0 [facility] Comment on above: Performed By: #### L [id number] #### [facility] ([facility]) [address] [place] [address] MCH (RBC) [Entitic mass] 28.8 pg Normal 27.0-33.0 [facility] Comment on above: Performed By: #### L [id number] #### [facility] ([facility]) [address] [place] [address] MCV (RBC) [Entitic vol] 92.1 fL Normal 82.0-98.0 [facility] Comment on above: Performed By: #### L [id number] #### [facility] ([facility] [address] [place] [address] Monocytes (Bld) [#/Vol] 0.79 10*3/uL Normal 0.10-1.00 [facility] Comment on above: Performed By: #### L [id number] #### [facility] ([facility]) [address] [place] [address] Monocytes/100 WBC (Bld) 7.5 % Normal 5.0-12.0 [facility] Comment on above: Performed By: #### L [id number] #### [facility] ([facility]) [address] [place] [address] Neutrophils (Bld) [#/Vol] 8.13 10*3/uL High 1.60-7.60 [facility] Comment on above: Performed By: #### L [id number] #### [facility] ([facility]) [address] [place] [address] Neutrophils/100 WBC (Bld) 76.8 % High 40.0-72.0 [facility] Comment on above: Performed By: #### L [id number] #### [facility] ([facility]) [address] [place] [address] NRBC (PER 100 WBCS) BY AUTOMATED COUNT 0.0 % Normal 0 [facility] Comment on above: Performed By: #### L [id number] #### [facility] ([facility]) [address] [place] [address] PLATELETS (10*3/UL) IN BLOOD AUTOMATED COUNT 415 10*3/uL High 150-400 [facility] Comment on above: Performed By: #### L [id number] #### [facility] ([facility]) [address] [place] [address] RBC (Bld) [#/Vol] 2.40 10*6/uL Low 3.80-5.00 [facility] Comment on above: Performed By: #### L [id number] #### [facility] ([facility]) [address] [place] [address] WBC (Bld) [#/Vol] 10.58 10*3/uL Normal 4.00-10.60 [facility] Comment on above: Performed By: #### L [id number] #### [facility] ([facility]) [address] [place] [address] HEMOGLOBIN AND HEMATOCRIT, B LOODon 08-15-2024 Hematocrit (Bld) [Volume fraction] 25.2 % Low 36.0-48.0 [facility] Comment on above: Performed By: #### L [id number] #### [facility] ([facility]) [address] [place] [address] Hemoglobin (Bld) [Mass/Vol] 8.0 g/dL Low 12.0-15.0 [facility] Comment on above: Performed By: #### L [id number] #### [facility] ([facility]) [address] [place] [address] MRI CARDIAC MORPHOLOGY AND F UNCTION W AND WO IV CONTRASTon 08-15-2024 MRI CARDIAC MORPHOLOGY AND FUNCTION W AND WO IV CONTRAST Addendum: Abnormality identified on the MRI demonstrates T2 signal which is hypointense to the nearby myocardium. The mass round/lobulated and appears about 1.3 x 1.0 cm in size. It is at the attachment of the posterior valve leaflet to the myocardium. On a recent chest x-ray dated 08/13/2024 there is a rounded area of annular calcification which would conform in size and shape to the abnormality noted on the MR scan. Electronically signed: Ameya Daniel MD. MRI CARDIAC MORPHOLOGY AND FUNCTION W AND WO IV CONTRAST 08/18/2024 7:25 AM SIGNS AND SYMPTOMS: Mitral valve abnormality TECHNOLOGIST COMMENTS: QUESTION FOR THE RADIOLOGIST: PROTOCOL: Multiplanar T1 and T2-weighted MR imaging conducted. This includes bright blood steady-state free precession images. Black blood images and delayed myocardial enhancement images. T1 and T2 mapping conducted. gadoterate meglumine 0.5 mmol/mL contrast injection 40 mL ??? COMPARISON: None FINDINGS: Morphology: Left ventricular end-diastolic diameter:52.6 mm Anteroseptal wall thickness:0.91 cm Inferoseptal wall thickness:0.63 cm Mid septal wall thickness:1.1 cm Right ventricular size:Normal Left ventricular size:Normal.Increased trabeculation and papillary muscle in the left ventricle but no measurement evidence of myocardial noncompaction Right atrial size:Normal Left atrial size:Mildly enlarged Function: Left ventricular ejection fraction:66% Left ventricular end-diastolic volume:158.9 Left ventricular end-systolic volume: 54.1 Stroke volume:104.8 Wall motion:Normal Valves: Quantitative analysis: Not performed Mitral valve: On the short axis views there is a single small focal area of rounded irregularity on the posterior mitral valve leaflet. See saved images. Not well appreciated on the 3 chamber cine or four-chamber images. Does not enhance on any postcontrast images. Tricuspid valve: A leaflets appear normal Aortic valve: Tricuspid valve leaflets appear normal Delayed myocardial enhancement: No abnormal delayed myocardial enhancement Other cardiac findings: Pericardium:No pericardial effusion Aorta:No aortic aneurysm Noncardiac findings: Visualized lungs are normal IMPRESSION: * On the short axis views there is a single small focal area of rounded irregularity on the posterior mitral valve leaflet. See saved images. This is not well appreciated on the 3 chamber cine or four-chamber images. Does not enhance on any postcontrast images. * No abnormal delayed myocardial enhancement * Normal left ventricular ejection fraction and wall motion . Electronically signed: Ameya Daniel MD. Not Vldtd Invalid Interpretation Code [facility] TYPE AND SCREENon 08-15-2024 AB SCREEN Negative Normal [facility] Comment on above: Performed By: #### L [id number] #### [facility] ([facility]) [address] [place] [address] ABO group Nom (Bld) A Normal [facility] Comment on above: Performed By: #### L [id number] #### [facility] ([facility]) [address] [place] [address] RH TYPE IN BLOOD Positive Normal [facility] Comment on above: Performed By: #### L [id number] #### [facility] ([facility]) [address] [place] [address] URINALYSIS WITH REFLEX CULTU REon 08-15-2024 BILIRUBIN, TOTAL PRESENCE IN URINE Negative Normal Negative [facility] Comment on above: Order Comment: Micro scopics not performed on urines with negative chemical reactions unless requested on original order. Performed By: #### L [id number] #### [facility] ([facility]) [address] [place] [address] Clarity (U) Clear Normal Clear [facility] Comment on above: Order Comment: Micro scopics not performed on urines with negative chemical reactions unless requested on original order. Performed By: #### L [id number] #### [facility] ([facility]) [address] [place] [address] Color (U) Colorless Normal Colorless, Yellow, Light-Yello w [facility] Comment on above: Order Comment: Micro scopics not performed on urines with negative chemical reactions unless requested on original order. Performed By: #### L [id number] #### [facility] ([facility]) [address] [place] [address] GLUCOSE (MG/DL) IN URINE Normal Normal Normal [facility] Comment on above: Order Comment: Micro scopics not performed on urines with negative chemical reactions unless requested on original order. Performed By: #### L [id number] #### [facility] ([facility]) [address] [place] [address] HEMOGLOBIN PRESENCE IN URINE Negative Normal Negative [facility] Comment on above: Order Comment: Micro scopics not performed on urines with negative chemical reactions unless requested on original order. Performed By: #### L [id number] #### [facility] ([facility]) [address] [place] [address] Ketones Ql (U) Negative Normal Negative [facility] Comment on above: Order Comment: Micro scopics not performed on urines with negative chemical reactions unless requested on original order. Performed By: #### L [id number] #### [facility] ([facility]) [address] [place] [address] LEUKOCYTE ESTERASE PRESENCE IN URINE BY TEST STRIP Negative Normal Negative [facility] Comment on above: Order Comment: Micro scopics not performed on urines with negative chemical reactions unless requested on original order. Performed By: #### L [id number] #### [facility] ([facility]) [address] [place] [address] NITRITE PRESENCE IN URINE Negative Normal Negative [facility] Comment on above: Order Comment: Micro scopics not performed on urines with negative chemical reactions unless requested on original order. Performed By: #### L [id number] #### [facility] ([facility]) [address] [place] [address] pH (U) 5.0 [pH] Normal 5.0-8.0 [facility] Comment on above: Order Comment: Micro scopics not performed on urines with negative chemical reactions unless requested on original order. Performed By: #### L [id number] #### [facility] ([facility]) [address] [place] [address] Protein (U) [Mass/Vol] Negative Normal [facility] above: Order Comment: Micro scopics not performed on urines with negative chemical reactions unless requested on original order. Performed By: #### L [id number] #### [facility] ([facility]) [address] [facility] [place] [address] Specific gravity (U) [Rel density] 1.007 Low 1.010-1.030 [facility] Comment on above: Order Comment: Micro scopics not performed on urines with negative chemical reactions unless requested on original order. Performed By: #### L [id number] #### [facility] ([facility]) [address] [place] [address] UROBILINOGEN (MG/DL) IN URINE Normal Normal Normal [facility] Comment on above: Order Comment: Micro scopics not performed on urines with negative chemical reactions unless requested on original order. Performed By: #### L [id number] #### [facility] ([facility]) [address] [place] [address] 30on 08-14-2024 30 Daily Case Managemen t Update Multidisciplinary rounds have been completed. Barriers to Discharge: Patient presented from [facility] with SOB an elevated troponin. EKG showed sinus ernie with first degree AV block. Echo this morning. Cardio consult and is planning JOHNNIE today. Gi consult for melena on and off for the last 3 weeks. Patient has a hx of small bowel bleeds r/t AVMS. Continue protonix. HGB 7.6. Trops .29. Patient is from home. Diet: Dietary Orders (From admission, onward) Start Ordered 12/23/24 0001 Diet NPO Diet effective midnight Comments: Sips with medications Question: Reason for NPO: Answer: Operation/Procedure 08/13/241813 Physician Expected Discharge Date: 08/16/2024 Discharge Delays: PT Six Click Score: 24 OT Six Click Score: PT Recommendations: OT Recommendations: Is expected discharge disposition appropriate for patient?: Yes New Consults: Normal [facility] 30 The patient is Moderately Stable - Low risk of patient condition declining or worsening The patient's goals for the shift include comfort/rest The clinical goals for the shift include Stable VS Problem: Pain - Adult Goal: Verbalizes/displays adequate comfort level or baseline comfort level Outcome: Progressing Flowsheets (Taken 08/14/2024911) Verbalizes/displays adequate comfort level or baseline comfort level: Encourage patient to monitor pain and request assistance Assess pain using appropriate pain scale Administer analgesics based on type and severity of pain and evaluate response Implement non-pharmacological measures as appropriate and evaluate response Consider cultural and social influences on pain and pain management Notify Licensed Independent Practitioner if interventions unsuccessful or patient reports new pain Problem: Safety - Adult Goal: Free from fall injury Outcome: Progressing Flowsheets (Taken 08/14/2024911) Free from fall injury: Assess patient frequently for physical needs Identify cognitive and physical deficits and behaviors that affect risk of falls [place] fall precautions as indicated by assessment Educate patient/family on patient safety, including physical limitations Modify environment to reduce risk of injury Instruct patient to call for assistance with activity based on assessment Consider OT/PT consult to assist with strengthening/mobilit y Problem: Discharge Planning Goal: Discharge to home or other facility with appropriate resources Outcome: Progressing Flowsheets (Taken 08/14/2024911) Discharge to home or other facility with appropriate resources: Identify barriers to discharge with patient and caregiver Arrange for needed discharge resources and transportation as appropriate Identify discharge learning needs (meds, wound care, etc) Arrange for interpreters to assist at discharge as needed Refer to discharge planning if patient needs post-hospital services based on physician order or complex needs related to functional status, cognitive ability or social support system Problem: Chronic Conditions and Co-morbidities Goal: Patient's chronic conditions and co-morbidity symptoms are monitored and maintained or improved Outcome: Progressing Flowsheets (Taken 08/14/2024911) Care Plan - Patient's Chronic Conditions and Co-Morbidity Symptoms are Monitored and Maintained or Improved: Monitor and assess patient's chronic conditions and comorbid symptoms for stability, deterioration, or improvement Collaborate with multidisciplinary team to address chronic and comorbid conditions and prevent exacerbation or deterioration Update acute care plan with appropriate goals if chronic or comorbid symptoms are exacerbated and prevent overall improvement and discharge Normal [facility] ANESon 08-14-2024 ANES - Attestation signed by Suzi Moreno MD at 08/29/2024 10:07 AM I personally saw and examined the patient on the same date of service as resident/fellow dr cacramo. I discussed the findings and therapeutic plan with the resident/fellow dr carcamo. I agree with the documentation, except for any edits/updates below. Teaching Physician's Revisions: none Suzi Moreno MD, [facility] Patient: Terri Maldonado Elena Choose an anesthesia record to view details Clinical information reviewed: Allergies Meds Physical Exam Airway Mallampati: II TM distance: >3 FB Neck ROM: full Cardiovascular Rhythm: regular Rate: normal (-) murmur Dental Pulmonary (-) decreased breath sounds, wheezes, rales Abdominal Abdomen: soft Bowel sounds: normal Anesthesia Plan ASA 3 (Conscious sedation) Anesthetic plan and risks discussed with patient. Use of blood products discussed with patient who consented to blood products. Plan discussed with attending and fellow. Additional Equipment Requests Normal [facility] BASIC METABOLIC PANELon 12- Anion gap [Moles/Vol] 9 mmol/L Normal 7-20 [facility] Comment on above: Performed By: #### L [id number] ####[facility] ([facility])[address] [place] [address] Calcium [Mass/Vol] 8.9 mg/dL Normal 8.6-10.3 [facility] Comment on above: Performed By: #### L [id number] ####[facility] ([facility])[address] [place] [address] Chloride [Moles/Vol] 104 mmol/L Normal 98-107 [facility] Comment on above: Performed By: #### L [id number] ####[facility] ([facility])[address] [place] [address] CO2 [Moles/Vol] 27 mmol/L Normal 21-31 [facility] Comment on above: Performed By: #### L [id number] ####[facility] ([facility])[address] [place] [address] Creatinine [Mass/Vol] 1.36 mg/dL High 0.60-1.20 [facility] Comment on above: Performed By: #### L [id number] ####[facility] ([facility])[address] [place] [address] GLOMERULAR FILTRATION RATE ML/MIN/1.73 SQ M.PREDICTED 39.9 mL/min/1.73m*2 Low >60.0 [facility] Comment on above: Result Comment: The [facility]???s estimated glomerular filtration rate (eGFR) will no longer include consideration of race in its calculation. The National Kidney Foundation???s eGFR Task Force developed new recommendations for the estimation of the glomerular filtration rate in the [place] They recommend immediate implementation of the new equation refit without the race variable in all laboratories because the calculation does not include race. In addition to not including race in the calculation and reporting, it included diversity in its development, and has acceptable performance characteristics and potential consequences that do not disproportionately affect any one group of individuals. Performed By: #### L [id number] ####[facility] ([facility])[address] [place] [address] Glucose [Mass/Vol] 128 mg/dL High 70-100 [facility] Comment on above: Performed By: #### L [id number] ####[facility] ([facility])[address] [place] [address] Potassium [Moles/Vol] 4.9 mmol/L Normal 3.5-5.1 [facility] Comment on above: Performed By: #### L [id number] ####[facility] ([facility])[address] [place] [address] Sodium [Moles/Vol] 135 mmol/L Low 136-145 [facility] Comment on above: Performed By: #### L [id number] ####[facility] ([facility])[address] [place] [address] Urea nitrogen [Mass/Vol] 39 mg/dL High 7-25 [facility] Comment on above: Performed By: #### L [id number] ####[facility] ([facility])[address] [place] [address] UREA NITROGEN/CREATININE (MASS RATIO) IN SER/PLAS 28.7 Normal [facility] Comment on above: Performed By: #### L [id number] ####[facility] ([facility])[address] [place] [address] BLOOD CULTUREon 08-14-2024 Bacteria identified Cx Nom (Bld) No growth at 5 days [facility] Comment on above: Order Comment: From a different site than #1. Performed By: #### L [id number] ####[facility] ([facility])[address] [place] [address] Bacteria identified Cx Nom (Bld) No growth at 5 days [facility] Comment on above: Performed By: #### L [id number] ####[facility] ([facility])[address] [place] [address] C-REACTIVE PROTEINon 024 C REACTIVE PROTEIN (MG/L) IN SER/PLAS 25.7 mg/L High <=5.0 [facility] Comment on above: Result Comment: Test ing performed using a new methodology, turbidimetry. Normal ranges have been updated. Old normal range was <8 mg/L. Performed By: #### L [id number] ####[facility] ([facility])[address] [place] [address] CBCon 08-14-2024 Erythrocyte distribution width (RBC) [Ratio] 15.8 % High 11.5-15.0 [facility] Comment on above: Performed By: #### L [id number] ####[facility] ([facility])[address] [place], [place] [address] ERYTHROCYTE MEAN CORPUSCULAR HEMOGLOBIN CONCENTRATION (G/DL) BY AUTOMATED 31.4 g/dL Low 32.0-35.0 [facility] Comment on above: Performed By: #### L [id number] ####[facility] ([facility])[address] [place] [address] Hematocrit (Bld) [Volume fraction] 23.6 % Low 36.0-48.0 [facility] Comment on above: Performed By: #### L [id number] ####[facility] ([facility])[address] [place] [address] Hemoglobin (Bld) [Mass/Vol] 7.4 g/dL Low 12.0-15.0 [facility] Comment on above: Performed By: #### L [id number] ####[facility] ([facility])[address] [place] [address] MCH (RBC) [Entitic mass] 28.6 pg Normal 27.0-33.0 [facility] Comment on above: Performed By: #### L [id number] ####[facility] ([facility])[address] [place] [address] MCV (RBC) [Entitic vol] 91.1 fL Normal 82.0-98.0 [facility] Comment on above: Performed By: #### L [id number] ####[facility] ([facility])[address] [place] [address] PLATELETS (10*3/UL) IN BLOOD AUTOMATED COUNT 402 10*3/uL High 150-400 [facility] Comment on above: Performed By: #### L [id number] ####[facility] ([facility])[address] [place] [address] RBC (Bld) [#/Vol] 2.59 10*6/uL Low 3.80-5.00 [facility] Comment on above: Performed By: #### L [id number] ####[facility] ([facility])[address] [place] [address] WBC (Bld) [#/Vol] 6.87 10*3/uL Normal 4.00-10.60 [facility] Comment on above: Performed By: #### L [id number] ####[facility] ([facility])[address] [place] [address] CONSULTon 08-14-2024 CONSULT - Attestation signed by Fabio Hernandez MD at 08/15/2024 1:37 PM By using the attestations below, the signing clinician agrees that I have read and verify that the documentation has been personally reviewed by me and ensure that the documentation accurately reflects the encounter. GC: I personally saw this patient on the day of the encounter, performed the trinh portion(s) of the service and participated in the management and confirm the resident's documentation. Please note there may be an additional personal documentation from me. Additional Comments: Will consider EGD/colonoscopy timing to be determined based on clinical course and plan from cardiology team. Can consider inpatient vs outpatient endoscopic evaluation. Initial Gastroenterology/Hepa benjaminogy Consultation Note IDENTIFYING DATA PATIENT: Terri Newton ADMIT DATE: 08/13/2024 TIME OF EVALUATION: 08/14/2024 7:28 AM Reason for Consult: GI bleed, dark stools Admitting Physician: Saul Briscoe MD HISTORY OF PRESENT ILLNESS Terri Newton is a 79 y.o. female with a known past medical history significant for hypertension, hypothyroidism, paroxysmal A-fib not on anticoagulation secondary to recurrent GI bleed, COPD on O2 as needed at home, CKD presented to the hospital as a direct admission from [facility] with a chief complaint of shortness of breath. Patient reports shortness of breath, cough with sputum's production for the last week. She reports that she went to her PCP who prescribed her antibiotics and she has been taking them since. However, her symptoms continued to worsen which prompted her to go to the ED. Patient also mentioned a history of recurrent GI bleed and she had a workup done at [place] with a local credit union field examiner there. According to her, she had multiple endoscopic evaluations including EGD, colonoscopy and a VCE for black tarry stools and anemia. 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 However, no reports were found in her chart. Patient endorses intermittent melena over the last few years. However, she mentioned that over the last couple of days to weeks she would have episodes of on/off black tarry stools. No hematochezia, no abdominal pain, no nausea or vomiting. No coffee-ground emesis or hematemesis. Patient was transferred from [facility] to our hospital for cardiology evaluation. Upon admission: Patient was afebrile and hemodynamically stable. Satting well on oxygen provided by nasal cannula. CMP mainly remarkable for a creatinine of 1.44 with normal LFTs. Hemoglobin 8.1 g/dL. CXR unremarkable. Troponin was noted to be elevated. Our GI service was consulted for melena and possible GI bleed. GI HISTORY SUMMARY TABLE Last EGD Last colonoscopy Primary GI physician PAST MEDICAL, SURGICAL, FAMILY, and SOCIAL HISTORY Past Medical History: Past Medical History: Diagnosis Date Atrial fibrillation (CMS/HCC) COPD (chronic obstructive pulmonary disease) (CMS/HCC) Hypertension Hypothyroidism Past Surgical History: Past Surgical History: Procedure Laterality Date CARDIAC CATHETERIZATION CARDIOVERSION HYSTERECTOMY Family History: Family History Problem Relation Name Age of Onset Atrial fibrillation Brother Social History: Social History Tobacco Use Smoking status: Former Types: Cigarettes Smokeless tobacco: Never Substance Use Topics Alcohol use: Not Currently Drug use: Never Allergies: No Known Allergies MEDICATIONS Home Medications: Prior to Admission medications Medication Sig Start Date End Date Taking? Authorizing Provider amLODIPine (Norvasc) 5 mg tablet Take 1 tablet (5 mg) by mouth once daily as directed. 05/12/24 Yes Gordon Lacy MD cetirizine (ZyrTEC) 10 mg tablet Take 10 mg by mouth in the morning. 01/24/24 01/23/25 Yes Historical Provider, furosemide (Lasix) 40 mg tablet Take 1 tablet (40 mg) by mouth once daily as directed. 1/2 tab every other day 04/25/24 04/25/25 Yes Gordon Lacy MD levothyroxine (Synthroid, Levoxyl) 112 mcg tablet Take 75 mcg by mouth before breakfast. Yes Historical Provider, propafenone (Rythmol) 150 mg tablet Take 1 tablet (150 mg) by mouth in the morning and at bedtime. 03/22/24 Yes Gordon Lacy MD methocarbamol (Robaxin) 500 mg tablet Take 1 tablet by mouth if needed in the morning and at bedtime. Historical Provider, octreotide (SandoSTATIN) 100 mcg/mL injection Infuse 100 mcg into a venous catheter every 30 (thirty) days. On hold, will see in December if continuing Historical Provider, Current Medications: amLODIPine, 5 mg, oral, Once Daily azithromycin, 500 mg, intravenous, q24h cefTRIAXone, 2 g, intravenous, q24h furosemide, 40 mg, oral, Once Daily ipratropi (more content not included)... [facility] CONSULT - Attestation signed by Suzi Moreno MD at 08/14/2024 5:17 PM I personally saw and examined the patient on the same date of service as resident/fellow Dr carcamo. I discussed the findings and therapeutic plan with the resident/fellow Dr Carcamo. I agree with the documentation, except for any edits/updates below. Teaching Physician's Revisions: None Patient presented to outside hospital with shortness of breath and cough. The patient is heavy smoker and she has underlying COPD. Her troponin was positive therefore she was transferred for further evaluation. EKG did not show acute changes showed possible mitral valve vegetation on the ventricular side of the posterior mitral leaflet at the junction of the base of that leaflet with the left ventricle. She had an echo on 02/25/2024 in [place] which showed moderate mitral annulus calcification. The patient denies any fever or chills. She denies any recent dental work. White blood count is 6.87 bili 0.4, 0.3, 0.29 most likely due to demand ischemia. The plan in regarding to the mitral valve abnormality is due to obtain 2 sets of blood culture, monitor white blood count and fever, JOHNNIE for further evaluation, sed rate and CRP Suzi Moreno MD, [facility] Cardiology Consult Note Reason for Consult: dr bernardo sent from [place] with [facility] HPI: Terri Newton is a 79 y.o. female with past history remarkable for primary hypertension, paroxysmal atrial fibrillation not on anticoagulation due to recurrent GI bleeding, COPD, and chronic kidney disease stage IIIB who presented to [facility] as transfer from [facility] where she initially presented complaining of worsening shortness of breath, associated with productive cough over last week. There was also concern of dark stools over last 3 weeks, her initial labs remarkable for hemoglobin of 8.1, BUN 37, creatinine of 1.9, and high sensitivity troponin of 1910. Conventional troponin at [facility] showed 0.41. BNP 248. Patient also reported chest pressure for which cardiology team consulted for further evaluation and management. Cardiology ROS: Review of Systems Constitutional: Negative for activity change and appetite change. Respiratory: Positive for cough, chest tightness and shortness of breath. Negative for wheezing. Cardiovascular: Negative for chest pain, palpitations and leg swelling. Gastrointestinal: Negative for abdominal pain, nausea and vomiting. Neurological: Negative for dizziness and light-headedness. Past Medical History She has a past medical history of Atrial fibrillation (CMS/HCC), COPD (chronic obstructive pulmonary disease) (CMS/HCC), Hypertension, and Hypothyroidism. Surgical History She has a past surgical history that includes Hysterectomy; Cardioversion; and Cardiac catheterization. Social History She reports that she has quit smoking. Her smoking use included cigarettes. She has never used smokeless tobacco. She reports that she does not currently use alcohol. She reports that she does not use drugs. Family History Family History Problem Relation Name Age of Onset Atrial fibrillation Brother Allergies Patient has no known allergies. Medications Current Outpatient Medications Medication Instructions amLODIPine (NORVASC) 5 mg, oral, Once Daily cetirizine (ZYRTEC) 10 mg, oral, Daily RT furosemide (LASIX) 40 mg, oral, Once Daily, 1/2 tab every other day levothyroxine (SYNTHROID, LEVOXYL) 75 mcg, oral, Daily before breakfast methocarbamol (Robaxin) 500 mg tablet 1 tablet, oral, 2 times daily PRN octreotide (SANDOSTATIN) 100 mcg, intravenous, Every 30 days, On hold, will see in December if continuing propafenone (RYTHMOL) 150 mg, oral, 2 times daily RT Medications Prior to Admission Medication Sig Dispense Refill Last Dose amLODIPine (Norvasc) 5 mg tablet Take 1 tablet (5 mg) by mouth once daily as directed. 90 tablet 3 08/12/2024 cetirizine (ZyrTEC) 10 mg tablet Take 10 mg by mouth in the morning. 08/12/2024 furosemide (Lasix) 40 mg tablet Take 1 tablet (40 mg) by mouth once daily as directed. 1/2 tab every other day 90 tablet 3 08/12/2024 levothyroxine (Synthroid, Levoxyl) 112 mcg tablet Take 75 mcg by mouth before breakfast. 08/12/2024 propafenone (Rythmol) 150 mg tablet Take 1 tablet (150 mg) by mouth in the morning and at bedtime. 180 tablet 3 08/12/2024 methocarbamol (Robaxin) 500 mg tablet Take 1 tablet by mouth if needed in the morning and at bedtime. octreotide (SandoSTATIN) 100 mcg/mL injection Infuse 100 mcg into a venous catheter every 30 (thirty) days. On hold, will see in December if continuing Last Recorded Vitals Patient Vitals for the past 24 hrs: BP Temp Temp src Pulse Resp SpO2 Height Weight 08/14/24 0500 -- -- -- -- -- -- -- 61.4 kg (135 lb 6.4 oz) 08/14/24 0400 125/50 36.3 ???C (more content not included)... Normal [facility] HEMOGLOBIN AND HEMATOCRIT, B La 08-14-2024 Hematocrit (Bld) [Volume fraction] 25.1 % Low 36.0-48.0 [facility] Comment on above: Performed By: #### L [id number] #### [facility] ([facility]) [address] [place] [address] Hemoglobin (Bld) [Mass/Vol] 7.9 g/dL Low 12.0-15.0 [facility] Comment on above: Performed By: #### L [id number] #### [facility] ([facility]) [address] [place] [address] Hematocrit (Bld) [Volume fraction] 24.2 % Low 36.0-48.0 [facility] Comment on above: Performed By: #### L [id number] #### [facility] ([facility]) [address] [place] [address] Hemoglobin (Bld) [Mass/Vol] 7.6 g/dL Low 12.0-15.0 [facility] Comment on above: Performed By: #### L [id number] #### [facility] ([facility]) [address] [place] [address] HPon 08-14-2024 HP - Attestation signed by Fabio Hernandez MD at 08/15/2024 1:37 PM By using the attestations below, the signing clinician agrees that I have read and verify that the documentation has been personally reviewed by me and ensure that the documentation accurately reflects the encounter. GC: I personally saw this patient on the day of the encounter, performed the trinh portion(s) of the service and participated in the management and confirm the resident's documentation. Please note there may be an additional personal documentation from me. Additional Comments: Will consider EGD/colonoscopy timing to be determined based on clinical course and plan from cardiology team. Can consider inpatient vs outpatient endoscopic evaluation. [facility] Consultation Note IDENTIFYING DATA PATIENT: Terri Newton ADMIT DATE: 08/13/2024 TIME OF EVALUATION: 08/14/2024 7:28 AM Reason for Consult: GI bleed, dark stools Admitting Physician: Saul Briscoe MD HISTORY OF PRESENT ILLNESS Terri Newton is a 79 y.o. female with a known past medical history significant for hypertension, hypothyroidism, paroxysmal A-fib not on anticoagulation secondary to recurrent GI bleed, COPD on O2 as needed at home, CKD presented to the hospital as a direct admission from [facility] with a chief complaint of shortness of breath. Patient reports shortness of breath, cough with sputum's production for the last week. She reports that she went to her PCP who prescribed her antibiotics and she has been taking them since. However, her symptoms continued to worsen which prompted her to go to the ED. Patient also mentioned a history of recurrent GI bleed and she had a workup done at [place] with a local credit union field examiner there. According to her, she had multiple endoscopic evaluations including EGD, colonoscopy and a VCE for black tarry stools and anemia. 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 However, no reports were found in her chart. Patient endorses intermittent melena over the last few years. However, she mentioned that over the last couple of days to weeks she would have episodes of on/off black tarry stools. No hematochezia, no abdominal pain, no nausea or vomiting. No coffee-ground emesis or hematemesis. Patient was transferred from [facility] to our hospital for cardiology evaluation. Upon admission: Patient was afebrile and hemodynamically stable. Satting well on oxygen provided by nasal cannula. CMP mainly remarkable for a creatinine of 1.44 with normal LFTs. Hemoglobin 8.1 g/dL. CXR unremarkable. Troponin was noted to be elevated. Our GI service was consulted for melena and possible GI bleed. GI HISTORY SUMMARY TABLE Last EGD Last colonoscopy Primary GI physician PAST MEDICAL, SURGICAL, FAMILY, and SOCIAL HISTORY Past Medical History: Past Medical History: Diagnosis Date Atrial fibrillation (CMS/HCC) COPD (chronic obstructive pulmonary disease) (CMS/HCC) Hypertension Hypothyroidism Past Surgical History: Past Surgical History: Procedure Laterality Date CARDIAC CATHETERIZATION CARDIOVERSION HYSTERECTOMY Family History: Family History Problem Relation Name Age of Onset Atrial fibrillation Brother Social History: Social History Tobacco Use Smoking status: Former Types: Cigarettes Smokeless tobacco: Never Substance Use Topics Alcohol use: Not Currently Drug use: Never Allergies: No Known Allergies MEDICATIONS Home Medications: Prior to Admission medications Medication Sig Start Date End Date Taking? Authorizing Provider amLODIPine (Norvasc) 5 mg tablet Take 1 tablet (5 mg) by mouth once daily as directed. 05/12/24 Yes Gordon Lacy MD cetirizine (ZyrTEC) 10 mg tablet Take 10 mg by mouth in the morning. 01/24/24 01/23/25 Yes Historical Provider, furosemide (Lasix) 40 mg tablet Take 1 tablet (40 mg) by mouth once daily as directed. 1/2 tab every other day 04/25/24 04/25/25 Yes Gordon Lacy MD levothyroxine (Synthroid, Levoxyl) 112 mcg tablet Take 75 mcg by mouth before breakfast. Yes Historical Provider, propafenone (Rythmol) 150 mg tablet Take 1 tablet (150 mg) by mouth in the morning and at bedtime. 03/22/24 Yes Gordon Lacy MD methocarbamol (Robaxin) 500 mg tablet Take 1 tablet by mouth if needed in the morning and at bedtime. Historical Provider, octreotide (SandoSTATIN) 100 mcg/mL injection Infuse 100 mcg into a venous catheter every 30 (thirty) days. On hold, will see in December if continuing Historical Provider, Current Medications: amLODIPine, 5 mg, oral, Once Daily azithromycin, 500 mg, intravenous, q24h cefTRIAXone, 2 g, intravenous, q24h furosemide, 40 mg, oral, Once Daily ipratropi (more content not included)... Normal [facility] MAGNESIUMon 08-14-2024 Magnesium [Mass/Vol] 2.0 mg/dL Normal 1.9-2.7 [facility] Comment on above: Performed By: #### L [id number] ####[facility] ([facility])[address] [place] [address] NURSNOTEon 08-14-2024 NURSNOTE Report given to RIGOBERTO Garnett from [employer] Any medications or safety alerts were reviewed. Any pending diagnostics and notifications were also reviewed, as well as any safety concerns or issues, abnormal labs, abnormal imagining, and abnormal assessment findings. Lidocaine time. Questions were answered. Normal [facility] SEDIMENTATION RATEon 024 SEDIMENTATION RATE, ERYTHROCYTE 51 mm/hr High <30 [facility] Comment on above: Performed By: #### L [id number] ####[facility] ([facility])[address] [place] [address] TROPONIN Ion 08-14-2024 Troponin I.cardiac [Mass/Vol] 0.32 ng/mL Critically high 0.00-0.04 [facility] Comment on above: Result Comment: M-PA EVIOUS CRITICAL RESULT Previous result verified on 08/14/2024 0607 on specimen/case [id number] called with component Troponin I for procedure Troponin I with value 0.29 ng/mL. Performed By: #### L [id number] ####[facility] ([facility])[address] [place] [address] Troponin I.cardiac [Mass/Vol] 0.29 ng/mL Critically high 0.00-0.04 [facility] Comment on above: Result Comment: M-PA EVIOUS CRITICAL RESULT Previous result verified on 08/14/2024 0055 on specimen/case [id number] called with component Troponin I for procedure Troponin I with value 0.32 ng/mL. Performed By: #### L [id number] ####[facility] ([facility])[address] [place] [address] 30on 08-13-2024 30 The patient is Moderately Stable - Low risk of patient condition declining or worsening The patient's goals for the shift include comfort/rest The clinical goals for the shift include Stable VS Problem: Pain - Adult Goal: Verbalizes/displays adequate comfort level or baseline comfort level Outcome: Progressing Flowsheets (Taken 08/13/20241930) Verbalizes/displays adequate comfort level or baseline comfort level: Encourage patient to monitor pain and request assistance Assess pain using appropriate pain scale Administer analgesics based on type and severity of pain and evaluate response Notify Licensed Independent Practitioner if interventions unsuccessful or patient reports new pain Implement non-pharmacological measures as appropriate and evaluate response Consider cultural and social influences on pain and pain management Problem: Safety - Adult Goal: Free from fall injury Outcome: Progressing Flowsheets (Taken 08/13/20241930) Free from fall injury: Assess patient frequently for physical needs Identify cognitive and physical deficits and behaviors that affect risk of falls Educate patient/family on patient safety, including physical limitations Modify environment to reduce risk of injury Consider OT/PT consult to assist with strengthening/mobilit y Instruct patient to call for assistance with activity based on assessment [place] fall precautions as indicated by assessment Problem: Discharge Planning Goal: Discharge to home or other facility with appropriate resources Outcome: Progressing Flowsheets (Taken 08/13/20241930) Discharge to home or other facility with appropriate resources: Identify barriers to discharge with patient and caregiver Arrange for needed discharge resources and transportation as appropriate Identify discharge learning needs (meds, wound care, etc) Refer to discharge planning if patient needs post-hospital services based on physician order or complex needs related to functional status, cognitive ability or social support system Arrange for interpreters to assist at discharge as needed Problem: Chronic Conditions and Co-morbidities Goal: Patient's chronic conditions and co-morbidity symptoms are monitored and maintained or improved Outcome: Progressing Flowsheets (Taken 08/13/20241930) Care Plan - Patient's Chronic Conditions and Co-Morbidity Symptoms are Monitored and Maintained or Improved: Monitor and assess patient's chronic conditions and comorbid symptoms for stability, deterioration, or improvement Collaborate with multidisciplinary team to address chronic and comorbid conditions and prevent exacerbation or deterioration Update acute care plan with appropriate goals if chronic or comorbid symptoms are exacerbated and prevent overall improvement and discharge Normal [facility] 30 The patient is Moderately Stable - Low risk of patient condition declining or worsening The patient's goals for the shift include The clinical goals for the shift include Over the shift, the patient did make progress toward the following goals. Problem: Pain - Adult Goal: Verbalizes/displays adequate comfort level or baseline comfort level Outcome: Progressing Problem: Safety - Adult Goal: Free from fall injury Outcome: Progressing Problem: Discharge Planning Goal: Discharge to home or other facility with appropriate resources Outcome: Progressing Problem: Chronic Conditions and Co-morbidities Goal: Patient's chronic conditions and co-morbidity symptoms are monitored and maintained or improved Outcome: Progressing Normal [facility] B-TYPE NATRIURETIC PEPTIDEon 08-13-2024 Natriuretic peptide B (Bld) [Mass/Vol] 248 pg/mL High 0-100 [facility] Comment on above: Performed By: #### L [id number] #### [facility] ([facility]) [address] [place] [address] BASIC METABOLIC PANELon 12-2 Anion gap [Moles/Vol] 13 mmol/L Normal 7-20 [facility] Comment on above: Performed By: #### L [id number] ####[facility] ([facility])[address] [place] [address] Calcium [Mass/Vol] 9.0 mg/dL Normal 8.6-10.3 [facility] Comment on above: Performed By: #### L [id number] ####[facility] ([facility])[address] [place] [address] Chloride [Moles/Vol] 101 mmol/L Normal 98-107 [facility] Comment on above: Performed By: #### L [id number] ####[facility] ([facility] [place] [address] CO2 [Moles/Vol] 25 mmol/L Normal 21-31 [facility] Comment on above: Performed By: #### L [id number] ####[facility] ([facility])[address] [place] [address] Creatinine [Mass/Vol] 1.44 mg/dL High 0.60-1.20 [facility] Comment on above: Performed By: #### L [id number] ####[facility] ([facility])[address] [place] [address] GLOMERULAR FILTRATION RATE ML/MIN/1.73 SQ M.PREDICTED 37.2 mL/min/1.73m*2 Low >60.0 [facility] Comment on above: Result Comment: The [facility]???s estimated glomerular filtration rate (eGFR) will no longer include consideration of race in its calculation. The National Kidney Foundation???s eGFR Task Force developed new recommendations for the estimation of the glomerular filtration rate in the [place] They recommend immediate implementation of the new equation refit without the race variable in all laboratories because the calculation does not include race. In addition to not including race in the calculation and reporting, it included diversity in its development, and has acceptable performance characteristics and potential consequences that do not disproportionately affect any one group of individuals. Performed By: #### L [id number] ####[facility] ([facility])[address] [place] [address] Glucose [Mass/Vol] 152 mg/dL High 70-100 [facility] Comment on above: Performed By: #### L [id number] ####[facility] ([facility])[address] [place] [address] Potassium [Moles/Vol] 4.7 mmol/L Normal 3.5-5.1 [facility] Comment on above: Performed By: #### L [id number] ####[facility] ([facility])[address] [place] [address] Sodium [Moles/Vol] 134 mmol/L Low 136-145 [facility] Comment on above: Performed By: #### L [id number] ####[facility] ([facility])[address] [place] [address] Urea nitrogen [Mass/Vol] 37 mg/dL High 7-25 [facility] Comment on above: Performed By: #### L [id number] ####[facility] ([facility])[address] [place] [address] UREA NITROGEN/CREATININE (MASS RATIO) IN SER/PLAS 25.7 Normal [facility] Comment on above: Performed By: #### L [id number] ####[facility] ([facility])[address] [place] [address] CBCon 08-13-2024 Erythrocyte distribution width (RBC) [Ratio] 15.7 % High 11.5-15.0 [facility] Comment on above: Performed By: #### L [id number] ####[facility] ([facility])[address] [place] [address] ERYTHROCYTE MEAN CORPUSCULAR HEMOGLOBIN CONCENTRATION (G/DL) BY AUTOMATED 32.0 g/dL Normal 32.0-35.0 [facility] Comment on above: Performed By: #### L [id number] ####[facility] ([facility])[address] [place] [address] Hematocrit (Bld) [Volume fraction] 25.3 % Low 36.0-48.0 [facility] Comment on above: Performed By: #### L [id number] ####[facility] ([facility])[address] [place] [address] Hemoglobin (Bld) [Mass/Vol] 8.1 g/dL Low 12.0-15.0 [facility] Comment on above: Performed By: #### L [id number] ####[facility] ([facility])[address] [place] [address] MCH (RBC) [Entitic mass] 28.4 pg Normal 27.0-33.0 [facility] Comment on above: Performed By: #### L [id number] ####[facility] ([facility])[address] [place] [address] MCV (RBC) [Entitic vol] 88.8 fL Normal 82.0-98.0 [facility] Comment on above: Performed By: #### L [id number] ####[facility] ([facility])[address] [place] [address] PLATELETS (10*3/UL) IN BLOOD AUTOMATED COUNT [id number] 10*3/uL High 150-400 [facility] Administration Comment on above: Performed By: #### L [id number] ####[facility] ([facility])[address] [place] [address] RBC (Bld) [#/Vol] 2.85 10*6/uL Low 3.80-5.00 [facility] Comment on above: Performed By: #### L [id number] ####[facility] ([facility])[address] [place] [address] WBC (Bld) [#/Vol] 6.20 10*3/uL Normal 4.00-10.60 [facility] Comment on above: Performed By: #### L [id number] ####[facility] ([facility])[address] [place] [address] D-DIMER, QUANTITATIVEon 07-24 FIBRIN D-DIMER (UG/L FEU) IN PLATELET POOR PLASMA 0.71 mcg/mL FEU High 0.27-0.49 [facility] Comment on above: Order Comment: D-Dim er values of less than 0.50 ug/ml (FEU) are considered to be a negative predictor of thrombosis. However, the D-Dimer result should be used in conjunction with pretest probability and should not be used alone to diagnose a thrombotic event. Performed By: #### L [id number] #### [facility] ([facility]) [address] [place] [address] HEMOGLOBIN AND HEMATOCRIT, B LOODon 08-13-2024 Hematocrit (Bld) [Volume fraction] 22.9 % Low 36.0-48.0 [facility] Comment on above: Performed By: #### L [id number] ####[facility] ([facility])[address] [place] [address] Hemoglobin (Bld) [Mass/Vol] 7.1 g/dL Low 12.0-15.0 [facility] Comment on above: Performed By: #### L [id number] ####[facility] ([facility])[address] [place] [address] HEPATIC FUNCTION PANELon Albumin [Mass/Vol] 3.8 g/dL Normal 3.5-5.7 [facility] Comment on above: Performed By: #### L [id number] #### [facility] ([facility]) [address] [place] [address] ALP [Catalytic activity/Vol] 83 U/L Normal 34-104 [facility] Comment on above: Performed By: #### L [id number] #### [facility] ([facility]) [address] [place] [address] ALT [Catalytic activity/Vol] 6 U/L Low 7-52 [facility] Comment on above: Performed By: #### L [id number] #### [facility] ([facility]) [address] [place] [address] AST [Catalytic activity/Vol] 11 U/L Low 13-39 [facility] Comment on above: Performed By: #### L [id number] #### [facility] ([facility]) [address] [place] [address] Bilirubin [Mass/Vol] 0.3 mg/dL Normal 0.3-1.0 [facility] Comment on above: Performed By: #### L [id number] #### [facility] ([facility]) [address] [place] [address] Magnesium [Mass/Vol] 0.0 mg/dL Normal 0-0.2 [facility] Comment on above: Performed By: #### L [id number] #### [facility] ([facility]) [address] [place] [address] Protein [Mass/Vol] 7.2 g/dL Normal 6.0-8.3 [facility] Comment on above: Performed By: #### L [id number] #### [facility] ([facility]) [address] [place] [address] MAGNESIUMon 08-13-2024 Magnesium [Mass/Vol] 1.8 mg/dL Low 1.9-2.7 [facility] Comment on above: Performed By: #### L [id number] #### [facility] ([facility]) [address] [place] [address] TROPONIN Ion 08-13-2024 Troponin I.cardiac [Mass/Vol] 0.32 ng/mL Critically high 0.00-0.04 [facility] Comment on above: Result Comment: M-PA EVIOUS CRITICAL RESULT Previous result verified on 08/13/2024 1929 on specimen/case [id number] called with component Troponin I for procedure Troponin I with value 0.41 ng/mL. Performed By: #### L [id number] #### [facility] ([facility]) [address] [place] [address] Troponin I.cardiac [Mass/Vol] 0.41 ng/mL Critically high 0.00-0.04 [facility] Comment on above: Result Comment: M-TR OPONIN INITIAL CRITICAL HIGH; RESPUN AND RETESTED Performed By: #### L [id number] #### [facility] ([facility]) [address] [place] [address] CBC W Auto Differential pane l (Bld)on 08-03-2024 Basophils (Bld) [#/Vol] 0.1 10*3/uL 0.0 - 0.2 10*3/uL [facility] Basophils/100 WBC Manual cnt (Syn fld) 1.2 % . [facility] Eosinophils (Bld) [#/Vol] 0.4 10*3/uL 0.0 - 0.45 10*3/uL [facility] Eosinophils/100 WBC Manual cnt (Syn fld) 6.2 % . [facility] Erythrocyte distribution width (RBC) [Ratio] 16.3 % High 11.9 - 15.3 % [facility] Hematocrit (Bld) [Volume fraction] 25.5 % Low 34.0 - 46.4 % [facility] Hemoglobin (Bld) [Mass/Vol] 8.3 g/dL Low 11.8 - 15.4 g/dL [facility] Interpretation and review of laboratory results Abnormal [facility] Lymphocytes (Bld) [#/Vol] 1.2 10*3/uL 1.00 - 4.8 10*3/uL [facility] Lymphocytes/100 WBC Manual cnt (Syn fld) 20.7 % . [facility] MCH (RBC) [Entitic mass] 28.7 pg 24.7 - 34.3 pg [facility] MCHC (RBC) [Mass/Vol] 32.5 g/dL 32.0 - 35.0 g/dL [facility] MCV (RBC) [Entitic vol] 88.4 fL 80 - 100 fL [facility] Monocytes (Bld) [#/Vol] 0.6 10*3/uL 0.0 - 0.8 10*3/uL [facility] Monocytes+Macrophages/1 00 WBC Manual cnt (Syn fld) 9.6 % . [facility] Neutrophils (Bld) [#/Vol] 3.7 10*3/uL 1.8 - 7.7 10*3/uL [facility] Neutrophils/100 WBC Manual cnt (Syn fld) 62.3 % . [facility] NRBC 0 /100{WBC} 0 - 0.5 /100{WBC} [facility] Platelet mean volume (Bld) [Entitic vol] 7.4 fL 6.3 - 10.7 fL [facility] Platelets (Bld) [#/Vol] 427 10*3/uL 150 - 450 10*3/uL [facility] RBC LM.HPF (Urine sed) [#/Area] 2.88 10*6/uL Low 3.60 - 5.00 10*6/uL [facility] WBC (Bld) [#/Vol] 6 10*3/uL 3.8 - 11.6 10*3/uL [facility] WBC LM.HPF (Urine sed) [#/Area] 6 10*3/uL 3.8 - 11.6 10*3/uL [facility] Complete Blood Count Auto Di ffon 08-03-2024 Basophils (Bld) [#/Vol] 0.1 10*3/uL Normal 0.0-0.2 [facility] Comment on above: Result Comment: PERF ORMED BY: [place] [address] PATHOLOGIST PROMOTION WRITER LASHAY CHARLES M.D. Performed By: #### F E and TIBC, SHI, CBC, CMP #### [address] Basophils/100 WBC (Bld) 1.2 % Normal . [facility] Comment on above: Performed By: #### F E and TIBC, SHI, CBC, CMP #### [address] Eosinophils (Bld) [#/Vol] 0.4 10*3/uL Normal 0.0-0.45 [facility] Comment on above: Performed By: #### F E and TIBC, SHI, CBC, CMP #### [address] Eosinophils/100 WBC (Bld) 6.2 % Normal . [facility] Comment on above: Performed By: #### F E and TIBC, SHI, CBC, CMP #### [address] Erythrocyte distribution width (RBC) [Ratio] 16.3 % High 11.9-15.3 [facility] Comment on above: Performed By: #### F E and TIBC, SHI, CBC, CMP #### [address] Hematocrit (Bld) [Volume fraction] 25.5 % Low 34.0-46.4 [facility] Comment on above: Performed By: #### F E and TIBC, SHI, CBC, CMP #### [address] Hemoglobin (Bld) [Mass/Vol] 8.3 g/dL Low 11.8-15.4 [facility] Comment on above: Performed By: #### F E and TIBC, SHI, CBC, CMP #### [address] Lymphocytes (Bld) [#/Vol] 1.2 10*3/uL Normal 1.00-4.8 [facility] Comment on above: Performed By: #### F E and TIBC, SHI, CBC, CMP #### [address] Lymphocytes/100 WBC (Bld) 20.7 % Normal . [facility] Comment on above: Performed By: #### F E and TIBC, SHI, CBC, CMP #### [address] MCH (RBC) [Entitic mass] 28.7 pg Normal 24.7-34.3 [facility] Comment on above: Performed By: #### F E and TIBC, SHI, CBC, CMP #### [address] MCV (RBC) [Entitic vol] 88.4 fL Normal 80-100 [facility] Comment on above: Performed By: #### F E and TIBC, SHI, CBC, CMP #### [address] Mean Corpuscular HGB Conc 32.5 g/dL Normal 32.0-35.0 [facility] Comment on above: Performed By: #### F E and TIBC, SHI, CBC, CMP #### [address] Monocytes (Bld) [#/Vol] 0.6 10*3/uL Normal 0.0-0.8 [facility] Comment on above: Performed By: #### F E and TIBC, SHI, CBC, CMP #### [address] Monocytes/100 WBC (Bld) 9.6 % Normal . [facility] Comment on above: Performed By: #### F E and TIBC, SHI, CBC, CMP #### [address] Neutrophils (Bld) [#/Vol] 3.7 10*3/uL Normal 1.8-7.7 [facility] Comment on above: Performed By: #### F E and TIBC, SHI, CBC, CMP #### [address] Neutrophils/100 WBC (Bld) 62.3 % Normal . [facility] Comment on above: Performed By: #### F E and TIBC, SHI, CBC, CMP #### [address] NRBC% 0.0 /100{WBC} Normal 0-0.[address] [facility] Comment on above: Performed By: #### F E and TIBC, SHI, CBC, CMP #### [address] Platelet mean volume (Bld) [Entitic vol] 7.4 fL Normal 6.3-10.7 [facility] Comment on above: Performed By: #### F E and TIBC, SHI, CBC, CMP #### [place] [address] [place] Platelets (Bld) [#/Vol] 427 10*3/uL Normal 150-450 [facility] Comment on above: Performed By: #### F E and TIBC, SHI, CBC, CMP #### [address] RBC (Bld) [#/Vol] 2.88 10*6/uL Low 3.60-5.00 [facility] Comment on above: Performed By: #### F E and TIBC, SHI, CBC, CMP #### [address] WBC (Bld) [#/Vol] 6.0 10*3/uL Normal 3.8-11.6 [facility] Comment on above: Performed By: #### F E and TIBC, SHI, CBC, CMP #### [address] Comprehensive Metabolic Pane abraham 08-03-2024 Albumin [Mass/Vol] 3.9 g/dL Normal 3.5-5.7 [facility] Comment on above: Performed By: #### F E and TIBC, SHI, CBC, CMP #### [facility] [address] Albumin/Globulin [Mass ratio] 1.4 {ratio} Normal [facility] Comment on above: Performed By: #### F E and TIBC, SHI, CBC, CMP #### [address] ALP [Catalytic activity/Vol] 80 U/L Normal 34-104 [facility] Comment on above: Performed By: #### F E and TIBC, SHI, CBC, CMP #### [address] ALT [Catalytic activity/Vol] 13 U/L Normal 7-52 [facility] Comment on above: Performed By: #### F E and TIBC, SHI, CBC, CMP #### [address] Anion gap [Moles/Vol] 12.1 mmol/L Normal 6.0-15.0 [facility] Comment on above: Performed By: #### F E and TIBC, SHI, CBC, CMP #### [address] AST [Catalytic activity/Vol] 14 U/L Normal 13-39 [facility] Comment on above: Performed By: #### F E and TIBC, SHI, CBC, CMP #### [address] Bilirubin [Mass/Vol] 0.3 mg/dL Normal 0.3-1.0 [facility] Comment on above: Performed By: #### F E and TIBC, SHI, CBC, CMP #### [address] Calcium [Mass/Vol] 8.7 mg/dL Normal 8.6-10.3 [facility] Comment on above: Performed By: #### F E and TIBC, SHI, CBC, CMP #### [address] Chloride [Moles/Vol] 102 mmol/L Normal 98-107 [facility] Comment on above: Performed By: #### F E and TIBC, SHI, CBC, CMP #### [address] CO2 [Moles/Vol] 28.9 mmol/L Normal 21.0-31.0 [facility] Comment on above: Performed By: #### F E and TIBC, SHI, CBC, CMP #### [address] Creatinine [Mass/Vol] 1.48 mg/dL High 0.60-1.20 [facility] Comment on above: Performed By: #### F E and TIBC, SHI, CBC, CMP #### [address] Creatinine Clr Calc Pharmacy 27.05 Normal [facility] Comment on above: Performed By: #### F E and TIBC, SHI, CBC, CMP #### [address] Estimated GFR 36.024 mL/Min Normal [facility] Comment on above: Performed By: #### F E and TIBC, SHI, CBC, CMP #### [address] Globulin (S) [Mass/Vol] 2.8 g/dL Normal [facility] Comment on above: Performed By: #### F E and TIBC, SHI, CBC, CMP #### [address] Glucose [Mass/Vol] 103 mg/dL High 70-100 [facility] Comment on above: Result Comment: [place] Glucose Reference Range is dependent on time and content of last meal. Glucose of more than 200 mg/dL in a nonstressed, ambulatory subject supports the diagnosis of Diabetes Mellitus. ADA recommended reference range Performed By: #### F E and TIBC, SHI, CBC, CMP #### [address] Potassium [Moles/Vol] 5.0 mmol/L Normal 3.5-5.1 [facility] Comment on above: Performed By: #### F E and TIBC, SHI, CBC, CMP #### [address] Protein [Mass/Vol] 6.7 g/dL Normal 6.4-8.9 [facility] Comment on above: Performed By: #### F E and TIBC, SHI, CBC, CMP #### [address] Sodium [Moles/Vol] 138 mmol/L Normal 136-145 [facility] Comment on above: Performed By: #### F E and TIBC, SHI, CBC, CMP #### [address] Urea nitrogen [Mass/Vol] 37 mg/dL High 7-25 [facility] Comment on above: Performed By: #### F E and TIBC, SHI, CBC, CMP #### [address] Ferritinon 08-03-2024 Ferritin [Mass/Vol] 57.6 ng/mL Normal 11.0-306.8 [facility] Comment on above: Result Comment: PERF ORMED BY: [place] [address] PATHOLOGIST PROMOTION WRITER LASHAY CHARLES M.D. Performed By: #### C MP, FE and TIBC, SHI, CBC #### [address] Iron and TIBC Profileon 07-23 % Iron Saturation Not performed Normal 20-50 [facility] Comment on above: Performed By: #### F E and TIBC, SHI, CBC, CMP #### [address] Iron [Mass/Vol] ug/dL Low 50-212 [facility] Comment on above: Performed By: #### F E and TIBC, SHI, CBC, CMP #### [facility] [address] Total Iron Binding Capacity 332 ug/dL Normal 255-450 [facility] Comment on above: Performed By: #### F E and TIBC, SHI, CBC, CMP #### [facility] [address] [place] [address] [place] Transferrin [Mass/Vol] 237 mg/dL Normal 203-362 [facility] Comment on above: Performed By: #### F E and TIBC, SHI, CBC, CMP #### [facility] [address] Urinalysis macro (dipstick) panel (U)on 07-03-2024 Bilirubin, UA Negative Negative - 4(70) +++ mg/dL [facility] Blood, UA Positive Negative - 50 Donny/mcL [facility] Glucose, UA Negative Negative - 2000(110) ++++ mg/dL [facility] Ketones, UA Negative Negative - 160(16) ++++ mg/dL [facility] Leukocytes, UA Moderate Negative - 500+++ Dalton/mcL [facility] Nitrite, UA Negative Negative - Positive [facility] pH, UA 6 5 - 9 [facility] Protein, UA Trace Negative - 2000(20) ++++ mg/dL [facility] Spec Grav, UA 1.005 1 - 1.03 [facility] Urobilinogen, UA 0.2 0.2 - 12 mg/dL [facility] Alanine aminotransferase [En zymatic activity/volume] in Serum or PlasmaOrdered By: Bell Camargo on 05-08-2024 ALT [Catalytic activity/Vol] 8 U/L Normal 7-52 [facility] Comment on above: Performed By: #### C MP, FE and TIBC, SHI, CBC #### [facility] [address] [place] [address] [place] Albumin [Mass/volume] in Ser um or Plasma by Bromocresol green (BCG) dye binding methoOrdered By: Bell Camargo on 05-08-2024 Albumin BCG dye [Mass/Vol] 4.0 g/dL 3.5-5.7 [facility] Alkaline phosphatase [Enzyma tic activity/volume] in Serum or PlasmaOrdered By: Bell Camargo on 05-08-2024 ALP [Catalytic activity/Vol] 72 U/L Normal 34-104 [facility] Comment on above: Performed By: #### C MP, FE and TIBC, SHI, CBC #### [address] Aspartate aminotransferase [ Enzymatic activity/volume] in Serum or PlasmaOrdered By: Bell Raman on 05-08-2024 AST [Catalytic activity/Vol] 12 U/L Low 13-39 [facility] Comment on above: Performed By: #### C MP, FE and TIBC, SHI, CBC #### [address] Automated basophil %Ordered By: Bell Camargo on 05-08-2024 Basophils/100 WBC (Bld) 1.4 % Normal . [facility] Comment on above: Performed By: #### C MP, FE and TIBC, SHI, CBC #### [address] Automated basophil countOrde red By: Bell Reynoldsse on 05-08-2024 Basophils (Bld) [#/Vol] 0.1 10*3/uL Normal 0.0-0.2 [facility] Comment on above: Result Comment: PERF ORMED BY: [place] [address] PATHOLOGIST PROMOTION WRITER ANDI DERAS M.D. Performed By: #### C MP, FE and TIBC, SHI, CBC #### [address] Automated blood monocyte cou ntOrdered By: Bell Reynoldsse on 05-08-2024 Monocytes (Bld) [#/Vol] 0.4 10*3/uL Normal 0.0-0.8 [facility] Comment on above: Performed By: #### C MP, FE and TIBC, SHI, CBC #### [address] Automated eosinophil %Ordere d By: Bell Camargo on 05-08-2024 Eosinophils/100 WBC (Bld) 12.5 % Normal . [facility] Comment on above: Performed By: #### C MP, FE and TIBC, SHI, CBC #### [address] Automated eosinophil countOr dered By: Bell Caamrgo on 05-08-2024 Eosinophils (Bld) [#/Vol] 0.7 10*3/uL High 0.0-0.45 [facility] Comment on above: Performed By: #### C MP, FE and TIBC, SHI, CBC #### [address] Automated monocyte %Ordered By: Bell Reynoldsse on 05-08-2024 Monocytes/100 WBC (Bld) 7.0 % Normal . [facility] Comment on above: Performed By: #### C MP, FE and TIBC, SHI, CBC #### [address] Automated neutrophil %Ordere d By: Bell Camargo on 05-08-2024 Neutrophils/100 WBC (Bld) 58.3 % Normal . [facility] Comment on above: Performed By: #### C MP, FE and TIBC, SHI, CBC #### [address] Bilirubin.total [Mass/volume ] in Serum or PlasmaOrdered By: Bell Reynoldsse on 05-08-2024 Bilirubin [Mass/Vol] 0.3 mg/dL Normal 0.3-1.0 [facility] Comment on above: Performed By: #### C MP, FE and TIBC, SHI, CBC #### [address] CBC W Auto Differential pane l (Bld)on 05-08-2024 Basophils (Bld) [#/Vol] 0.1 10*3/uL 0.0 - 0.2 10*3/uL [facility] Basophils/100 WBC Manual cnt (Syn fld) 1.4 % . [facility] Eosinophils (Bld) [#/Vol] 0.7 10*3/uL High 0.0 - 0.45 10*3/uL [facility] Eosinophils/100 WBC Manual cnt (Syn fld) 12.5 % . [facility] Erythrocyte distribution width (RBC) [Ratio] 16.1 % High 11.9 - 15.3 % [facility] Hematocrit (Bld) [Volume fraction] 28.7 % Low 34.0 - 46.4 % [facility] Hemoglobin (Bld) [Mass/Vol] 9.7 g/dL Low 11.8 - 15.4 g/dL [facility] Interpretation and review of laboratory results Abnormal [facility] Lymphocytes (Bld) [#/Vol] 1.1 10*3/uL 1.00 - 4.8 10*3/uL [facility] Lymphocytes/100 WBC Manual cnt (Syn fld) 20.8 % . [facility] MCH (RBC) [Entitic mass] 31.5 pg 24.7 - 34.3 pg [facility] MCHC (RBC) [Mass/Vol] 33.7 g/dL 32.0 - 35.0 g/dL [facility] MCV (RBC) [Entitic vol] 93.5 fL 80 - 100 fL [facility] Monocytes (Bld) [#/Vol] 0.4 10*3/uL 0.0 - 0.8 10*3/uL [facility] Monocytes+Macrophages/1 00 WBC Manual cnt (Syn fld) 7.0 % . [facility] Neutrophils (Bld) [#/Vol] 3.2 10*3/uL 1.8 - 7.7 10*3/uL [facility] Neutrophils/100 WBC Manual cnt (Syn fld) 58.3 % . [facility] NRBC 0.1 /100{WBC} 0 - 0.5 /100{WBC} [facility] Platelet mean volume (Bld) [Entitic vol] 8.3 fL 6.3 - 10.7 fL [facility] Platelets (Bld) [#/Vol] 266 10*3/uL 150 - 450 10*3/uL [facility] RBC LM.HPF (Urine sed) [#/Area] 3.07 /[HPF] Low 3.60 - 5.00 [facility] WBC (Bld) [#/Vol] 5.5 10*3/uL 3.8 - 11.6 10*3/uL [facility] WBC LM.HPF (Urine sed) [#/Area] 5.5 10*3/uL 3.8 - 11.6 10*3/uL [facility] Calcium [Mass/volume] in Ser um or PlasmaOrdered By: Bell Camargo on 05-08-2024 Calcium [Mass/Vol] 9.0 mg/dL Normal 8.6-10.3 [facility] Comment on above: Performed By: #### C MP, FE and TIBC, SHI, CBC #### [address] Carbon dioxide, total [Moles /volume] in Serum or PlasmaOrdered By: Bell Reynoldsse on 05-08-2024 CO2 [Moles/Vol] 27.6 mmol/L Normal 21.0-31.0 [facility] Comment on above: Performed By: #### C MP, FE and TIBC, SHI, CBC #### [address] Chloride [Moles/volume] in S constance or PlasmaOrdered By: Bell Reynoldsse on 05-08-2024 Chloride [Moles/Vol] 106 mmol/L Normal 98-107 [facility] Comment on above: Performed By: #### C MP, FE and TIBC, SHI, CBC #### [address] Complete Blood Count Auto Di ffon 05-08-2024 Mean Corpuscular HGB Conc 33.7 g/dL Normal 32.0-35.0 [facility] Comment on above: Performed By: #### C MP, FE and TIBC, SHI, CBC #### [address] NRBC% 0.1 /100{WBC} Normal 0-0.[address] [facility] Comment on above: Performed By: #### C MP, FE and TIBC, SHI, CBC #### [address] Comprehensive Metabolic Pane abraham 05-08-2024 Albumin [Mass/Vol] 4.0 g/dL Normal 3.5-5.7 [facility] Comment on above: Performed By: #### C MP, FE and TIBC, SHI, CBC #### [address] Creatinine Clr Calc Pharmacy 28.40 Normal [facility] Comment on above: Performed By: #### C MP, FE and TIBC, SHI, CBC #### [address] GFR/1.73 sq M.predicted MDRD (S/P/Bld) [Vol rate/Area] 38.180 mL/min/{1.73_m2} Normal [facility] Comment on above: Performed By: #### C MP, FE and TIBC, SHI, CBC #### [address] Creatinine [Mass/volume] in Serum or PlasmaOrdered By: Bell Camargo on 05-08-2024 Creatinine [Mass/Vol] 1.41 mg/dL High 0.60-1.20 [facility] Comment on above: Performed By: #### C MP, FE and TIBC, SHI, CBC #### [address] Erythrocyte distribution wid th [Ratio] by Automated countOrdered By: Bell Camargo on 05-08-2024 Erythrocyte distribution width (RBC) [Ratio] 16.1 % High 11.9-15.3 [facility] Comment on above: Performed By: #### C MP, FE and TIBC, SHI, CBC #### [address] Erythrocytes [#/volume] in B lood by Automated countOrdered By: Bell Camargo on 05-08-2024 RBC (Bld) [#/Vol] 3.07 10*6/uL Low 3.60-5.00 [facility] Comment on above: Performed By: #### C MP, FE and TIBC, SHI, CBC #### [address] [place] [address] [place] Ferritin [Mass/volume] in Se rum or PlasmaOrdered By: Bell Camargo on 05-08-2024 Ferritin [Mass/Vol] 110.9 ng/mL Normal 11.0-306.8 [facility] Comment on above: Result Comment: PERF ORMED BY: [address] [place] [address] PATHOLOGIST PROMOTION WRITER ANDI DERAS M.D. Performed By: #### C MP, FE and TIBC, SHI, CBC #### [place] [address] [place] Glucose [Mass/volume] in Ser um or PlasmaOrdered By: Bell Camargo on 05-08-2024 Glucose [Mass/Vol] 113 mg/dL High 70-100 [facility] Comment on above: ADA recommended refe rence rangeRandom Glucose Reference Range is dependent on time and content of last meal. Glucose of more than 200 mg/dL in a nonstressed, ambulatory subject supports the diagnosis of Diabetes Mellitus. Result Comment: [place] om Glucose Reference Range is dependent on time and content of last meal. Glucose of more than 200 mg/dL in a nonstressed, ambulatory subject supports the diagnosis of Diabetes Mellitus. ADA recommended reference range Performed By: #### C MP, FE and TIBC, SHI, CBC #### [address] Hematocrit [Volume Fraction] of Blood by Automated countOrdered By: Bell Camargo on 05-08-2024 Hematocrit (Bld) [Volume fraction] 28.7 % Low 34.0-46.4 [facility] Comment on above: Performed By: #### C MP, FE and TIBC, SHI, CBC #### [address] Hemoglobin [Mass/volume] in BloodOrdered By: Bell Camargo on 05-08-2024 Hemoglobin (Bld) [Mass/Vol] 9.7 g/dL Low 11.8-15.4 [facility] Comment on above: Performed By: #### C MP, FE and TIBC, SHI, CBC #### [address] [place] [address] [place] Iron [Mass/volume] in Serum or PlasmaOrdered By: Bell Camargo on 05-08-2024 Iron [Mass/Vol] 37 ug/dL Low 50-212 [facility] Comment on above: Performed By: #### C MP, FE and TIBC, SHI, CBC #### [facility] [address] Iron and TIBC Profileon 04-23 % Iron Saturation 12.0 % Low 20-50 [facility] Comment on above: Performed By: #### C MP, FE and TIBC, SHI, CBC #### [facility] [address] Total Iron Binding Capacity 308 ug/dL Normal 255-450 [facility] Comment on above: Performed By: #### C MP, FE and TIBC, SHI, CBC #### [facility] [address] Iron binding capacity [Mass/ volume] in Serum or PlasmaOrdered By: Bell Camargo on 05-08-2024 Iron binding capacity [Mass/Vol] 308 ug/dL 255-450 [facility] Iron saturation [Mass Fracti on] in Serum or PlasmaOrdered By: Bell Camargo on 05-08-2024 Iron saturation [Mass fraction] 12.0 % Low 20-50 [facility] Leukocytes [#/volume] correc maria e for nucleated erythrocytes in Blood by Automated counOrdered By: Bell Camargo on 05-08-2024 WBC corrected for nucl RBC Auto (Bld) [#/Vol] 5.5 10*3/uL 3.8-11.6 [facility] Leukocytes [#/volume] in Blo od by Automated countOrdered By: Bell Camargo on 05-08-2024 WBC (Bld) [#/Vol] 5.5 10*3/uL Normal 3.8-11.6 [facility] Comment on above: Performed By: #### C MP, FE and TIBC, SHI, CBC #### [facility] [address] [place] [address] [place] Lymphocytes [#/volume] in Bl ood by Automated countOrdered By: Bell Raman on 05-08-2024 Lymphocytes (Bld) [#/Vol] 1.1 10*3/uL Normal 1.00-4.8 [facility] Comment on above: Performed By: #### C MP, FE and TIBC, SHI, CBC #### [address] Lymphocytes/100 leukocytes i n Blood by Automated countOrdered By: Bell Camargo on 05-08-2024 Lymphocytes/100 WBC (Bld) 20.8 % Normal . [facility] Comment on above: Performed By: #### C MP, FE and TIBC, SHI, CBC #### [address] MCH [Entitic mass] by Automa maria e countOrdered By: Bell Camargo on 05-08-2024 MCH (RBC) [Entitic mass] 31.5 pg Normal 24.7-34.3 [facility] Comment on above: Performed By: #### C MP, FE and TIBC, SHI, CBC #### [address] MCHC Auto (RBC) [Mass/Vol]Or dered By: Bell Camargo on 05-08-2024 MCHC (RBC) [Mass/Vol] 33.7 g/dL 32.0-35.0 [facility] MCV [Entitic volume] by Auto mated countOrdered By: Bell Camargo on 05-08-2024 MCV (RBC) [Entitic vol] 93.5 fL Normal 80-100 [facility] Comment on above: Performed By: #### C MP, FE and TIBC, SHI, CBC #### [address] Neutrophils [#/volume] in Bl ood by Automated countOrdered By: Bell Camargo on 05-08-2024 Neutrophils (Bld) [#/Vol] 3.2 10*3/uL Normal 1.8-7.7 [facility] Comment on above: Performed By: #### C MP, FE and TIBC, SHI, CBC #### [address] No Panel InformationOrdered By: Bell Raman on 05-08-2024 Estimated GFR (CKD-EPI) 38.180 mL/Min [facility] Creatinine Clearance (Chem 28.40 [facility] Nucleated erythrocytes [Pres ence] in Blood by Automated countOrdered By: Bell Raman on 05-08-2024 Nucleated RBC Auto Ql (Bld) 0.1 /100{WBC} 0-0.5 [facility] Platelet mean volume [Entiti c volume] in Blood by Automated countOrdered By: Bell Raman on 05-08-2024 Platelet mean volume (Bld) [Entitic vol] 8.3 fL Normal 6.3-10.7 [facility] Comment on above: Performed By: #### C MP, FE and TIBC, SHI, CBC #### [address] Platelets [#/volume] in Bloo d by Automated countOrdered By: Bell Camargo on 05-08-2024 Platelets (Bld) [#/Vol] 266 10*3/uL Normal 150-450 [facility] Comment on above: Performed By: #### C MP, FE and TIBC, SHI, CBC #### [address] Potassium [Moles/volume] in Serum or PlasmaOrdered By: Bell Camargo on 05-08-2024 Potassium [Moles/Vol] 4.5 mmol/L Normal 3.5-5.1 [facility] Comment on above: Performed By: #### C MP, FE and TIBC, SHI, CBC #### [address] Protein [Mass/volume] in Ser um or PlasmaOrdered By: Bell Camargo on 05-08-2024 Protein [Mass/Vol] 6.4 g/dL Normal 6.4-8.9 [facility] Comment on above: Performed By: #### C MP, FE and TIBC, SHI, CBC #### [address] Serum globulin measurement b y calculation (mass/volume)Ordered By: Bell Camargo on 05-08-2024 Globulin (S) [Mass/Vol] 2.4 g/dL Normal [facility] Comment on above: Performed By: #### C MP, FE and TIBC, SHI, CBC #### [address] Serum or plasma albumin/glob ulin mass ratioOrdered By: Bell Camargo on 05-08-2024 Albumin/Globulin [Mass ratio] 1.7 {ratio} Normal [facility] Comment on above: Performed By: #### C MP, FE and TIBC, SHI, CBC #### [address] Serum or plasma anion gap de terminationOrdered By: Bell Camargo on 05-08-2024 Anion gap [Moles/Vol] 9.9 mmol/L Normal 6.0-15.0 [facility] Comment on above: Performed By: #### C MP, FE and TIBC, SHI, CBC #### [address] Sodium [Moles/volume] in Ser um or PlasmaOrdered By: Bell Camargo on 05-08-2024 Sodium [Moles/Vol] 139 mmol/L Normal 136-145 [facility] Comment on above: Performed By: #### C MP, FE and TIBC, SHI, CBC #### [address] Transferrin [Mass/volume] in Serum or PlasmaOrdered By: Bell Camargo on 05-08-2024 Transferrin [Mass/Vol] 220 mg/dL Normal 203-362 [facility] Comment on above: Performed By: #### C MP, FE and TIBC, SHI, CBC #### [address] Urea nitrogen [Mass/volume] in Serum or PlasmaOrdered By: Bell Camargo on 05-08-2024 Urea nitrogen [Mass/Vol] 37 mg/dL High 7-25 [facility] Comment on above: Performed By: #### C MP, FE and TIBC, SHI, CBC #### [facility] [address] Office Visiton 03-10-2024 Follow-up visit [id number] Lance Newtonadalgisa Maldonado 1945 F Date Provider Department Center 03/10/2024 [facility] Family History Problem Relation Age of Onset Atrial fibrillation Brother Family Status - Relation Status Age at Brother Level of Service:71195 PA OFFICE/OUTPATIENT ESTABLISHED LOW MDM 20 MIN Normal [facility] Alanine aminotransferase [En zymatic activity/volume] in Serum or PlasmaOrdered By: Nusrat Bundy on 01-04-2024 ALT [Catalytic activity/Vol] 7 U/L 7-52 [facility] Albumin [Mass/volume] in Ser um or Plasma by Bromocresol green (BCG) dye binding methoOrdered By: Nusrat Bundy on 01-04-2024 Albumin BCG dye [Mass/Vol] 4.1 g/dL 3.5-5.7 [facility] Alkaline phosphatase [Enzyma tic activity/volume] in Serum or PlasmaOrdered By: Nusrat Bundy on 01-04-2024 ALP [Catalytic activity/Vol] 81 U/L 34-104 [facility] Aspartate aminotransferase [ Enzymatic activity/volume] in Serum or PlasmaOrdered By: Nusrat Bundy on 01-04-2024 AST [Catalytic activity/Vol] 13 U/L 13-39 [facility] Basophils Auto (Bld) [#/Vol] Ordered By: Nusrat Bundy on 01-04-2024 Basophils (Bld) [#/Vol] 0.1 10*3/uL 0.0-0.2 [facility] Basophils/100 WBC Auto (Bld) Ordered By: Nusrat Bundy on 01-04-2024 Basophils/100 WBC (Bld) 2.0 % . [facility] Bilirubin.total [Mass/volume ] in Serum or PlasmaOrdered By: Nusrat Bundy on 01-04-2024 Bilirubin [Mass/Vol] 0.3 mg/dL 0.3-1.0 [facility] Calcium [Mass/volume] in Ser um or PlasmaOrdered By: Nusrat Bundy on 01-04-2024 Calcium [Mass/Vol] 9.0 mg/dL 8.6-10.3 [facility] Carbon dioxide, total [Moles /volume] in Serum or PlasmaOrdered By: Nusrat Bundy on 01-04-2024 CO2 [Moles/Vol] 29.2 mmol/L 21.0-31.0 [facility] Chloride [Moles/volume] in S constance or PlasmaOrdered By: Nusrat Bundy on 01-04-2024 Chloride [Moles/Vol] 105 mmol/L 98-107 [facility] Creatinine [Mass/volume] in Serum or PlasmaOrdered By: Nusrat Bundy on 01-04-2024 Creatinine [Mass/Vol] 1.68 mg/dL 0.60-1.20 [facility] Eosinophils Auto (Bld) [#/Vo l]Ordered By: Nusrat Bundy on 01-04-2024 Eosinophils (Bld) [#/Vol] 0.4 10*3/uL 0.0-0.45 [facility] Eosinophils/100 WBC Auto (Bl d)Ordered By: Nusrat Bundy on 01-04-2024 Eosinophils/100 WBC (Bld) 8.0 % . [facility] Erythrocyte distribution wid th Auto (RBC) [Ratio]Ordered By: Nusrat Bundy on 01-04-2024 Erythrocyte distribution width (RBC) [Ratio] 14.2 % 11.9-15.3 [facility] Ferritin [Mass/volume] in Se rum or PlasmaOrdered By: Nusrat Bundy on 01-04-2024 Ferritin [Mass/Vol] 313.5 ng/mL 11.0-306.8 [facility] Globulin Calc (S) [Mass/Vol] Ordered By: Nusrat Bundy on 01-04-2024 Globulin (S) [Mass/Vol] 2.3 g/dL [facility] Glucose [Mass/volume] in Ser um or PlasmaOrdered By: Nusrat Bundy on 01-04-2024 Glucose [Mass/Vol] 81 mg/dL 70-100 [facility] Comment on above: ADA recommended refe rence rangeRandom Glucose Reference Range is dependent on time and content of last meal. Glucose of more than 200 mg/dL in a nonstressed, ambulatory subject supports the diagnosis of Diabetes Mellitus. Hematocrit Auto (Bld) [Volum e fraction]Ordered By: Nusrat Bundy on 01-04-2024 Hematocrit (Bld) [Volume fraction] 29.2 % 34.0-46.4 [facility] Hemoglobin [Mass/volume] in BloodOrdered By: Nusrat Bundy on 01-04-2024 Hemoglobin (Bld) [Mass/Vol] 9.8 g/dL 11.8-15.4 [facility] Iron [Mass/volume] in Serum or PlasmaOrdered By: Nusrat Bundy on 01-04-2024 Iron [Mass/Vol] 56 ug/dL 50-212 [facility] Iron binding capacity [Mass/ volume] in Serum or PlasmaOrdered By: Nusrat Bundy on 01-04-2024 Iron binding capacity [Mass/Vol] 287 ug/dL 255-450 [facility] Iron saturation [Mass Fracti on] in Serum or PlasmaOrdered By: Nusrat Bundy on 01-04-2024 Iron saturation [Mass fraction] 19.5 % 20-50 [facility] Leukocytes [#/volume] correc maria e for nucleated erythrocytes in Blood by Automated counOrdered By: Nusrat Bundy on 01-04-2024 WBC corrected for nucl RBC Auto (Bld) [#/Vol] 4.7 10*3/uL 3.8-11.6 [facility] Lymphocytes Auto (Bld) [#/Vo l]Ordered By: Nusrat Bundy on 01-04-2024 Lymphocytes (Bld) [#/Vol] 1.0 10*3/uL 1.00-4.8 [facility] Lymphocytes/100 WBC Auto (Bl d)Ordered By: Nusrat Bundy on 01-04-2024 Lymphocytes/100 WBC (Bld) 20.9 % . [facility] MCH Auto (RBC) [Entitic mass ]Ordered By: Nusrat Bundy on 01-04-2024 MCH (RBC) [Entitic mass] 33.6 pg 24.7-34.3 [facility] MCHC Auto (RBC) [Mass/Vol]Or dered By: Nusrat Bundy on 01-04-2024 MCHC (RBC) [Mass/Vol] 33.7 g/dL 32.0-35.0 [facility] MCV Auto (RBC) [Entitic vol] Ordered By: Nusrat Bundy on 01-04-2024 MCV (RBC) [Entitic vol] 99.5 fL 80-100 [facility] Monocytes Auto (Bld) [#/Vol] Ordered By: Nusrat Bundy on 01-04-2024 Monocytes (Bld) [#/Vol] 0.5 10*3/uL 0.0-0.8 [facility] Monocytes/100 WBC Auto (Bld) Ordered By: Nusrat Bundy on 01-04-2024 Monocytes/100 WBC (Bld) 10.3 % . [facility] Neutrophils Auto (Bld) [#/Vo l]Ordered By: Nusrat Bundy on 01-04-2024 Neutrophils (Bld) [#/Vol] 2.7 10*3/uL 1.8-7.7 [facility] Neutrophils/100 WBC Auto (Bl d)Ordered By: Nusrat Bundy on 01-04-2024 Neutrophils/100 WBC (Bld) 58.8 % . [facility] No Panel InformationOrdered By: Nusrat Bundy on 01-04-2024 Estimated GFR (CKD-EPI) 31.134 mL/Min [facility] Creatinine Clearance (Chem 24.22 [facility] Nucleated erythrocytes [Pres ence] in Blood by Automated countOrdered By: Nusrat Bundy on 01-04-2024 Nucleated RBC Auto Ql (Bld) 0.1 /100{WBC} 0-0.5 [facility] Platelet mean volume Auto (B ld) [Entitic vol]Ordered By: Nusrat Bundy on 01-04-2024 Platelet mean volume (Bld) [Entitic vol] 8.5 fL 6.3-10.7 [facility] Platelets Auto (Bld) [#/Vol] Ordered By: Nusrat Bundy on 01-04-2024 Platelets (Bld) [#/Vol] 247 10*3/uL 150-450 [facility] Potassium [Moles/volume] in Serum or PlasmaOrdered By: Nusrat Bundy on 01-04-2024 Potassium [Moles/Vol] 4.4 mmol/L 3.5-5.1 [facility] Protein [Mass/volume] in Ser um or PlasmaOrdered By: Nusrat Bundy on 01-04-2024 Protein [Mass/Vol] 6.4 g/dL 6.4-8.9 [facility] RBC Auto (Bld) [#/Vol]Ordere d By: Nusrat Bundy on 01-04-2024 RBC (Bld) [#/Vol] 2.93 10*6/uL 3.60-5.00 [facility] Serum or plasma albumin/glob ulin mass ratioOrdered By: Nusrat Bundy on 01-04-2024 Albumin/Globulin [Mass ratio] 1.8 {ratio} [facility] Serum or plasma anion gap de terminationOrdered By: Nusrat Bundy on 01-04-2024 Anion gap [Moles/Vol] 9.2 mmol/L 6.0-15.0 [facility] Sodium [Moles/volume] in Ser um or PlasmaOrdered By: Nusrat Bundy on 01-04-2024 Sodium [Moles/Vol] 139 mmol/L 136-145 [facility] Transferrin [Mass/volume] in Serum or PlasmaOrdered By: Nusrat Bundy on 01-04-2024 Transferrin [Mass/Vol] 205 mg/dL 203-362 [facility] Urea nitrogen [Mass/volume] in Serum or PlasmaOrdered By: Nusrat Bundy on 01-04-2024 Urea nitrogen [Mass/Vol] 39 mg/dL 7-25 [facility] WBC Auto (Bld) [#/Vol]Ordere d By: Nusrat Bundy on 01-04-2024 WBC (Bld) [#/Vol] 4.7 10*3/uL 3.8-11.6 [facility] Office Visiton 10-14-2023 Follow-up visit [id number] Terri Newton 1945 F Date Provider Department Center 10/14/2023 GIGI [facility] Family History Problem Relation Age of Onset Atrial fibrillation Brother Family Status - Relation Status Age at Brother Level of Service:96908 PA OFFICE/OUTPATIENT ESTABLISHED MOD MDM 30 MIN Normal [facility] COVID + FLU Quick Testingon 09-18-2023 SARS-CoV-2 (COVID-19) RNA TRACIE+probe Ql (Unsp spec) Negative [employer] Other COVID + FLU Quick Testing Negative [employer] Other Basophils Auto (Bld) [#/Vol] Ordered By: Bell Camargo on 09-02-2023 Basophils (Bld) [#/Vol] 0.1 10*3/uL 0.0-0.2 [facility] Basophils/100 WBC Auto (Bld) Ordered By: Bell Camargo on 09-02-2023 Basophils/100 WBC (Bld) 1.7 % . [facility] Eosinophils Auto (Bld) [#/Vo l]Ordered By: Bell Camargo on 09-02-2023 Eosinophils (Bld) [#/Vol] 0.3 10*3/uL 0.0-0.45 [facility] Eosinophils/100 WBC Auto (Bl d)Ordered By: Bell Camargo on 09-02-2023 Eosinophils/100 WBC (Bld) 7.8 % . [facility] Erythrocyte distribution wid th Auto (RBC) [Ratio]Ordered By: Bell Camargo on 09-02-2023 Erythrocyte distribution width (RBC) [Ratio] 15.1 % 11.9-15.3 [facility] Ferritin [Mass/volume] in Se rum or PlasmaOrdered By: Bell Camargo on 09-02-2023 Ferritin [Mass/Vol] 940.6 ng/mL 11.0-306.8 [facility] Hematocrit Auto (Bld) [Volum e fraction]Ordered By: Bell Camargo on 09-02-2023 Hematocrit (Bld) [Volume fraction] 30.6 % 34.0-46.4 [facility] Hemoglobin [Mass/volume] in BloodOrdered By: Bell Camargo on 09-02-2023 Hemoglobin (Bld) [Mass/Vol] 10.5 g/dL 11.8-15.4 [facility] Iron [Mass/volume] in Serum or PlasmaOrdered By: Bell Camargo on 09-02-2023 Iron [Mass/Vol] 76 ug/dL 50-212 [facility] Iron binding capacity [Mass/ volume] in Serum or PlasmaOrdered By: Bell Camargo on 09-02-2023 Iron binding capacity [Mass/Vol] 260 ug/dL 255-450 [facility] Iron saturation [Mass Fracti on] in Serum or PlasmaOrdered By: Bell Camargo on 09-02-2023 Iron saturation [Mass fraction] 29.2 % 20-50 [facility] Leukocytes [#/volume] correc maria e for nucleated erythrocytes in Blood by Automated counOrdered By: Bell Camargo on 09-02-2023 WBC corrected for nucl RBC Auto (Bld) [#/Vol] 3.5 10*3/uL 3.8-11.6 [facility] Lymphocytes Auto (Bld) [#/Vo l]Ordered By: Bell Camargo on 09-02-2023 Lymphocytes (Bld) [#/Vol] 0.8 10*3/uL 1.00-4.8 [facility] Lymphocytes/100 WBC Auto (Bl d)Ordered By: Bell Camargo on 09-02-2023 Lymphocytes/100 WBC (Bld) 21.9 % . [facility] MCH Auto (RBC) [Entitic mass ]Ordered By: Bell Camargo on 09-02-2023 MCH (RBC) [Entitic mass] 34.6 pg 24.7-34.3 [facility] MCHC Auto (RBC) [Mass/Vol]Or dered By: Bell Camargo on 09-02-2023 MCHC (RBC) [Mass/Vol] 34.2 g/dL 32.0-35.0 [facility] MCV Auto (RBC) [Entitic vol] Ordered By: Bell Camargo on 09-02-2023 MCV (RBC) [Entitic vol] 101.3 fL 80-100 [facility] Monocytes Auto (Bld) [#/Vol] Ordered By: Bell Camargo on 09-02-2023 Monocytes (Bld) [#/Vol] 0.3 10*3/uL 0.0-0.8 [facility] Monocytes/100 WBC Auto (Bld) Ordered By: Bell Camargo on 09-02-2023 Monocytes/100 WBC (Bld) 8.0 % . [facility] Neutrophils Auto (Bld) [#/Vo l]Ordered By: Bell Camargo on 09-02-2023 Neutrophils (Bld) [#/Vol] 2.1 10*3/uL 1.8-7.7 [facility] Neutrophils/100 WBC Auto (Bl d)Ordered By: Bell Camargo on 09-02-2023 Neutrophils/100 WBC (Bld) 60.6 % . [facility] Nucleated erythrocytes [Pres ence] in Blood by Automated countOrdered By: Bell Camargo on 09-02-2023 Nucleated RBC Auto Ql (Bld) 0.1 /100{WBC} 0-0.5 [facility] Platelet mean volume Auto (B ld) [Entitic vol]Ordered By: Bell Camargo on 09-02-2023 Platelet mean volume (Bld) [Entitic vol] 8.0 fL 6.3-10.7 [facility] Platelets Auto (Bld) [#/Vol] Ordered By: Bell Camargo on 09-02-2023 Platelets (Bld) [#/Vol] 313 10*3/uL 150-450 [facility] RBC Auto (Bld) [#/Vol]Ordere d By: Bell Camargo on 09-02-2023 RBC (Bld) [#/Vol] 3.02 10*6/uL 3.60-5.00 [facility] Transferrin [Mass/volume] in Serum or PlasmaOrdered By: Bell Camargo on 09-02-2023 Transferrin [Mass/Vol] 186 mg/dL 203-362 [facility] WBC Auto (Bld) [#/Vol]Ordere d By: Bell Camargo on 09-02-2023 WBC (Bld) [#/Vol] 3.5 10*3/uL 3.8-11.6 [facility] Basophils Auto (Bld) [#/Vol] Ordered By: Bell Camargo on 05-26-2023 Basophils (Bld) [#/Vol] 0.1 10*3/uL 0.0-0.2 [facility] Basophils/100 WBC Auto (Bld) Ordered By: Bell Camargo on 05-26-2023 Basophils/100 WBC (Bld) 1.3 % . [facility] Eosinophils Auto (Bld) [#/Vo l]Ordered By: Bell Camargo on 05-26-2023 Eosinophils (Bld) [#/Vol] 0.3 10*3/uL 0.0-0.45 [facility] Eosinophils/100 WBC Auto (Bl d)Ordered By: Bell Camargo on 05-26-2023 Eosinophils/100 WBC (Bld) 7.3 % . [facility] Erythrocyte distribution wid th Auto (RBC) [Ratio]Ordered By: Bell Camargo on 05-26-2023 Erythrocyte distribution width (RBC) [Ratio] 16.8 % 11.9-15.3 [facility] Ferritin [Mass/volume] in Se rum or PlasmaOrdered By: Bell Camargo on 05-26-2023 Ferritin [Mass/Vol] 477.2 ng/mL 11.0-306.8 [facility] Hematocrit Auto (Bld) [Volum e fraction]Ordered By: Bell Camargo on 05-26-2023 Hematocrit (Bld) [Volume fraction] 31.2 % 34.0-46.4 [facility] Hemoglobin [Mass/volume] in BloodOrdered By: Bell Camargo on 05-26-2023 Hemoglobin (Bld) [Mass/Vol] 10.3 g/dL 11.8-15.4 [facility] Iron [Mass/volume] in Serum or PlasmaOrdered By: Bell Camargo on 05-26-2023 Iron [Mass/Vol] 44 ug/dL 50-212 [facility] Iron binding capacity [Mass/ volume] in Serum or PlasmaOrdered By: Bell Camargo on 05-26-2023 Iron binding capacity [Mass/Vol] 256 ug/dL 255-450 [facility] Iron saturation [Mass Fracti on] in Serum or PlasmaOrdered By: Bell Camargo on 05-26-2023 Iron saturation [Mass fraction] 17.2 % 20-50 [facility] Leukocytes [#/volume] correc maria e for nucleated erythrocytes in Blood by Automated counOrdered By: Bell Camargo on 10-04-2023 WBC corrected for nucl RBC Auto (Bld) [#/Vol] 4.0 10*3/uL 3.8-11.6 [facility] Lymphocytes Auto (Bld) [#/Vo l]Ordered By: Bell Camargo on 05-26-2023 Lymphocytes (Bld) [#/Vol] 0.8 10*3/uL 1.00-4.8 [facility] Lymphocytes/100 WBC Auto (Bl d)Ordered By: Bell Camargo on 05-26-2023 Lymphocytes/100 WBC (Bld) 20.4 % . [facility] MCH Auto (RBC) [Entitic mass ]Ordered By: Bell Camargo on 05-26-2023 MCH (RBC) [Entitic mass] 32.7 pg 24.7-34.3 [facility] MCHC Auto (RBC) [Mass/Vol]Or dered By: Bell Camargo on 05-26-2023 MCHC (RBC) [Mass/Vol] 33.2 g/dL 32.0-35.0 [facility] MCV Auto (RBC) [Entitic vol] Ordered By: Bell Camargo on 05-26-2023 MCV (RBC) [Entitic vol] 98.6 fL 80-100 [facility] Monocytes Auto (Bld) [#/Vol] Ordered By: Bell Camargo on 05-26-2023 Monocytes (Bld) [#/Vol] 0.3 10*3/uL 0.0-0.8 [facility] Monocytes/100 WBC Auto (Bld) Ordered By: Bell Camargo on 05-26-2023 Monocytes/100 WBC (Bld) 7.8 % . [facility] Neutrophils Auto (Bld) [#/Vo l]Ordered By: Bell Camargo on 05-26-2023 Neutrophils (Bld) [#/Vol] 2.5 10*3/uL 1.8-7.7 [facility] Neutrophils/100 WBC Auto (Bl d)Ordered By: Bell Camargo on 05-26-2023 Neutrophils/100 WBC (Bld) 63.2 % . [facility] Nucleated erythrocytes [Pres ence] in Blood by Automated countOrdered By: Bell Camargo on 05-26-2023 Nucleated RBC Auto Ql (Bld) 0.1 /100{WBC} 0-0.5 [facility] Platelet mean volume Auto (B ld) [Entitic vol]Ordered By: Bell Camargo on 05-26-2023 Platelet mean volume (Bld) [Entitic vol] 8.3 fL 6.3-10.7 [facility] Platelets Auto (Bld) [#/Vol] Ordered By: Bell Camargo on 05-26-2023 Platelets (Bld) [#/Vol] 245 10*3/uL 150-450 [facility] RBC Auto (Bld) [#/Vol]Ordere d By: Bell Camargo on 05-26-2023 RBC (Bld) [#/Vol] 3.16 10*6/uL 3.60-5.00 [facility] Transferrin [Mass/volume] in Serum or PlasmaOrdered By: Bell Camargo on 05-26-2023 Transferrin [Mass/Vol] 183 mg/dL 203-362 [facility] WBC Auto (Bld) [#/Vol]Ordere d By: Bell Camargo on 05-26-2023 WBC (Bld) [#/Vol] 4.0 10*3/uL 3.8-11.6 [facility] CBC AUTO DIFFon 11-24-2022 BASO # 0.1 103/ul Normal 0.0-0.1 [facility] Comment on above: Performed By: #### C BC #### [facility] [address] [address] [address] Albert Briscoe Basophils/100 WBC (Bld) 1.0 % Normal 0.2-2.0 [facility] Comment on above: Performed By: #### C BC #### [facility] [address] [place], [place] [address] Dr. Albert Briscoe EO # 0.3 103/ul Normal 0.0-0.7 [facility] Comment on above: Performed By: #### C BC #### [facility] [address] [place], [place] [address] Dr. Albert Briscoe Eosinophils/100 WBC (Bld) 6.9 % Normal 0.9-7.0 [facility] Comment on above: Performed By: #### C BC #### [facility] [address] [place] [address] Dr. Albert Briscoe Erythrocyte distribution width (RBC) [Ratio] 14.8 % Normal 11.0-15.0 [facility] Comment on above: Performed By: #### C BC #### [facility] [address] [place] [address] Dr. Albert Briscoe Hematocrit (Bld) [Volume fraction] 23.7 % Critically low 36.0-48.0 [facility] Comment on above: Performed By: #### C BC #### [facility] [address] [place] [address] Dr. Albert Briscoe Hemoglobin (Bld) [Mass/Vol] 7.3 g/dL Critically low 12.0-16.0 [facility] Comment on above: Performed By: #### C BC #### [facility] [address] [place] [address] Dr. Albert Briscoe IG # 0.02 10e3/ul Normal 0.00-0.03 [facility] Comment on above: Performed By: #### C BC #### [facility] [address] [place] [address] Dr. Albert Briscoe IG % 0.4 % Normal 0.0-0.5 [facility] Comment on above: Performed By: #### C BC #### [facility] [address] [place] [address] Dr. Albert Briscoe LYMPH # 1.2 103/ul Normal 1.2-3.8 [facility] Comment on above: Performed By: #### C BC #### [facility] [address] [place] [address] Dr. Albert Briscoe Lymphocytes/100 WBC (Bld) 25.1 % Normal 20.5-60.0 [facility] Comment on above: Performed By: #### C BC #### [facility] [address] [place] [address] Dr. Albert Briscoe MANUAL DIFF REQ NO Normal [facility] Comment on above: Performed By: #### C BC #### [facility] [address] [place] [address] Dr. Albert Briscoe MCH (RBC) [Entitic mass] 30.4 pg Normal 26.7-34.0 [facility] Comment on above: Performed By: #### C BC #### [facility] [address] [place] [address] Dr. Albert Briscoe MCHC (RBC) [Mass/Vol] 30.8 g/dL Normal 29.9-35.2 [facility] Comment on above: Performed By: #### C BC #### [facility] [address] [place] [address] Dr. Albert Briscoe MCV (RBC) [Entitic vol] 98.8 fL Normal 81.0-99.0 [facility] Comment on above: Performed By: #### C BC #### [facility] [address] [place] [address] Dr. Albert Briscoe MONO # 0.4 103/ul Normal 0.3-0.8 [facility] Comment on above: Performed By: #### C BC #### [facility] [address] [place] [address] Dr. Albert Briscoe Monocytes/100 WBC (Bld) 8.1 % Normal 1.7-12.0 [facility] Comment on above: Performed By: #### C BC #### [facility] [address] [place] [address] Dr. Albert Briscoe NEUT # 2.8 103/ul Normal 1.4-6.5 [facility] Comment on above: Performed By: #### C BC #### [facility] [address] [place] [address] Dr. Albert Briscoe Neutrophils/100 WBC (Bld) 58.5 % Normal 43.0-75.0 [facility] Comment on above: Performed By: #### C BC #### [facility] [address] [place] [address] Dr. Albert Briscoe Platelet mean volume (Bld) [Entitic vol] 9.1 fL Critically low 9.5-13.5 [facility] Comment on above: Performed By: #### C BC #### [facility] [address] [address] [address] Albert Briscoe PLT 315 103/ul Normal 150-450 [facility] Comment on above: Performed By: #### C BC #### [facility] [address] [place] [address] Dr. Albert Briscoe RBC 2.40 106/ul Critically low 4.20-5.40 [facility] Comment on above: Performed By: #### C BC #### [facility] [address] [place] [address] Dr. Albert Briscoe WBC 4.8 103/ul Normal 4.0-11.0 [facility] Comment on above: Performed By: #### C BC #### [facility] [address] [place] [address] Dr. Albert Briscoe FERRITINon 11-24-2022 Ferritin [Mass/Vol] 53.0 ng/mL Normal 8.0-252.0 [facility] Comment on above: Performed By: #### B 12FOL, FETIBC, FERR #### [facility] [address] [place] [address] Dr. Albert Briscoe IRON AND TIBCon 11-24-2022 % SATURATION 10.6 % Normal [facility] Comment on above: Performed By: #### B 12FOL, FETIBC, FERR #### [facility] [address] [place] [address] Dr. Albert Briscoe Iron [Mass/Vol] 34.0 ug/dL Critically low 50.0-170.0 [facility] Comment on above: Performed By: #### B 12FOL, FETIBC, FERR #### [facility] [address] [place] [address] Dr. Albert Briscoe TIBC DIRECT 322.0 ug/dL Normal 250.0-450.0 [facility] Comment on above: Performed By: #### B 12FOL, FETIBC, FERR #### [facility] [address] [place] [address] Dr. Albert Briscoe PROF 14(COMP METB)on 023 Albumin [Mass/Vol] 3.6 g/dL Normal 3.4-5.0 [facility] Comment on above: Performed By: #### B 12FOL, FETIBC, FERR #### [facility] [address] [place] [address] Dr. Albert Briscoe Albumin/Globulin [Mass ratio] 1.0 {ratio} Normal [facility] Comment on above: Performed By: #### B 12FOL, FETIBC, FERR #### [facility] [address] [place] [address] Dr. Albert Briscoe ALP [Catalytic activity/Vol] 104 U/L Normal 46-116 [facility] Comment on above: Performed By: #### B 12FOL, FETIBC, FERR #### [facility] [address] [place] [address] Dr. Albert Briscoe ALT [Catalytic activity/Vol] 16 U/L Normal 14-59 [facility] Comment on above: Performed By: #### B 12FOL, FETIBC, FERR #### [facility] [address] [place] [address] Dr. Albert Briscoe Anion gap [Moles/Vol] 12.0 mmol/L Normal [facility] Comment on above: Performed By: #### B 12FOL, FETIBC, FERR #### [facility] [address] [place] [address] Dr. Albetr Briscoe AST [Catalytic activity/Vol] 11 U/L Critically low 15-37 [facility] Comment on above: Performed By: #### B 12FOL, FETIBC, FERR #### [facility] [address] [place] [address] Dr. Albert Briscoe Bilirubin [Mass/Vol] 0.2 mg/dL Normal 0.2-1.0 [facility] Comment on above: Performed By: #### B 12FOL, FETIBC, FERR #### [facility] [address] [place] [address] Dr. Albert Briscoe Calcium [Mass/Vol] 8.8 mg/dL Normal 8.5-10.1 [facility] Comment on above: Performed By: #### B 12FOL, FETIBC, FERR #### [facility] [address] [place] [address] Dr. Albert Briscoe Chloride [Moles/Vol] 103 mmol/L Normal 98-107 [facility] Comment on above: Performed By: #### B 12FOL, FETIBC, FERR #### [facility] [address] [place] [address] Dr. Albert Briscoe CO2 [Moles/Vol] 29.0 mmol/L Normal 21.0-32.0 [facility] Comment on above: Performed By: #### B 12FOL, FETIBC, FERR #### [facility] [address] [place] [address] Dr. Albert Briscoe Creatinine [Mass/Vol] 1.71 mg/dL Critically high 0.55-1.02 [facility] Comment on above: Performed By: #### B 12FOL, FETIBC, FERR #### [facility] [address] [place] [address] Dr. Albert Briscoe EGFR-AF [place] 35 mL/min/1.73m2 Critically low >=60 [facility] Comment on above: Performed By: #### B 12FOL, FETIBC, FERR #### [facility] [address] [place] [address] Dr. Albert Briscoe EGFR-NON AF [place] 29 mL/min/1.73m2 Critically low >=60 [facility] Comment on above: Performed By: #### B 12FOL, FETIBC, FERR #### [facility] [address] [place] [address] Dr. Albert Briscoe Globulin (S) [Mass/Vol] 3.7 g/dL Normal [facility] Comment on above: Performed By: #### B 12FOL, FETIBC, FERR #### [facility] [address] [place] [address] Dr. Albert Briscoe Glucose [Mass/Vol] 108 mg/dL Critically high 74-106 [facility] Comment on above: Performed By: #### B 12FOL, FETIBC, FERR #### [facility] [address] [place] [address] Dr. Albert Briscoe Potassium [Moles/Vol] 4.0 mmol/L Normal 3.5-5.1 [facility] Comment on above: Performed By: #### B 12FOL, FETIBC, FERR #### [facility] [address] [place] [address] Dr. Albert Briscoe Protein [Mass/Vol] 7.3 g/dL Normal 6.4-8.2 [facility] Comment on above: Performed By: #### B 12FOL, FETIBC, FERR #### [facility] [address] [place] [address] Dr. Albert Briscoe Sodium [Moles/Vol] 140 mmol/L Normal 136-145 [facility] Comment on above: Performed By: #### B 12FOL, FETIBC, FERR #### [facility] [address] [place] [address] Dr. Albert Briscoe Urea nitrogen [Mass/Vol] 32.0 mg/dL Critically high 7.0-18.0 [facility] Comment on above: Performed By: #### B 12FOL, FETIBC, FERR #### [facility] [address] [place] [address] Dr. Albert Briscoe Urea nitrogen/Creatinine [Mass ratio] 18.7 mg/mg Normal [facility] Comment on above: Performed By: #### B 12FOL, FETIBC, FERR #### [facility] [address] [place] [address] Dr. Albert Briscoe CBC AUTO DIFFon 09-25-2022 BASO # 0.1 103/ul Normal 0.0-0.1 [facility] Comment on above: Performed By: #### C BC #### [facility] [address] [place] [address] Dr. Albert Briscoe Basophils/100 WBC (Bld) 1.1 % Normal 0.2-2.0 [facility] Comment on above: Performed By: #### C BC #### [facility] [address] [address] [address] Albert Briscoe EO # 0.2 103/ul Normal 0.0-0.7 [facility] Comment on above: Performed By: #### C BC #### [facility] [address] [place] [address] Dr. Albert Briscoe Eosinophils/100 WBC (Bld) 4.7 % Normal 0.9-7.0 [facility] Comment on above: Performed By: #### C BC #### [facility] [address] [place] [address] Dr. Albert Briscoe Erythrocyte distribution width (RBC) [Ratio] 16.5 % Critically high 11.0-15.0 [facility] Comment on above: Performed By: #### C BC #### [facility] [address] [place] [address] Dr. Albert Briscoe Hematocrit (Bld) [Volume fraction] 33.7 % Critically low 36.0-48.0 [facility] Comment on above: Performed By: #### C BC #### [facility] [address] [place] [address] Dr. Albert Briscoe Hemoglobin (Bld) [Mass/Vol] 10.1 g/dL Critically low 12.0-16.0 [facility] Comment on above: Performed By: #### C BC #### [facility] [address] [place] [address] Dr. Albert Briscoe IG # 0.05 10e3/ul Critically high 0.00-0.03 [facility] Comment on above: Performed By: #### C BC #### [facility] [address] [place] [address] Dr. Albert Briscoe IG % 1.1 % Critically high 0.0-0.5 [facility] Comment on above: Performed By: #### C BC #### [facility] [address] [place] [address] Dr. Albert Briscoe LYMPH # 1.4 103/ul Normal 1.2-3.8 [facility] Comment on above: Performed By: #### C BC #### [facility] [address] [place] [address] Dr. Albert Briscoe Lymphocytes/100 WBC (Bld) 29.7 % Normal 20.5-60.0 [facility] Comment on above: Performed By: #### C BC #### [facility] [address] [place] [address] Dr. Albert Briscoe MANUAL DIFF REQ NO Normal [facility] Comment on above: Performed By: #### C BC #### [facility] [address] [place] [address] Dr. Albert Briscoe MCH (RBC) [Entitic mass] 31.2 pg Normal 26.7-34.0 [facility] Comment on above: Performed By: #### C BC #### [facility] [address] [place] [address] Dr. Albert Briscoe MCHC (RBC) [Mass/Vol] 30.0 g/dL Normal 29.9-35.2 [facility] Comment on above: Performed By: #### C BC #### [facility] [address] [place] [address] Dr. Albert Briscoe MCV (RBC) [Entitic vol] 104.0 fL Critically high 81.0-99 .0 [facility] Comment on above: Performed By: #### C BC #### [facility] [address] [place] [address] Dr. Albert Briscoe MONO # 0.4 103/ul Normal 0.3-0.8 [facility] Comment on above: Performed By: #### C BC #### [facility] [address] [place] [address] Dr. Albert Briscoe Monocytes/100 WBC (Bld) 8.1 % Normal 1.7-12.0 [facility] Comment on above: Performed By: #### C BC #### [facility] [address] [place] [address] Dr. Albert Briscoe NEUT # 2.6 103/ul Normal 1.4-6.5 [facility] Comment on above: Performed By: #### C BC #### [facility] [address] [place] [address] Dr. Albert Briscoe Neutrophils/100 WBC (Bld) 55.3 % Normal 43.0-75.0 [facility] Comment on above: Performed By: #### C BC #### [facility] [address] [place] [address] Dr. lAbert Briscoe Platelet mean volume (Bld) [Entitic vol] 10.9 fL Normal 9.5-13.5 [facility] Comment on above: Performed By: #### C BC #### [facility] [address] [place] [address] Dr. Albert Briscoe PLT 276 103/ul Normal 150-450 [facility] Comment on above: Performed By: #### C BC #### [facility] [address] [place] [address] Dr. Albert Briscoe RBC 3.24 106/ul Critically low 4.20-5.40 [facility] Comment on above: Performed By: #### C BC #### [facility] [address] [place] [address] Dr. Albert Briscoe WBC 4.7 103/ul Normal 4.0-11.0 [facility] Comment on above: Performed By: #### C BC #### [facility] [address] [place] [address] Dr. Albert Briscoe IRON AND TIBCon 09-25-2022 % SATURATION 15.5 % Normal [facility] Comment on above: Performed By: #### C BC #### [facility] [address] [place] [address] Dr. Albert Briscoe Iron [Mass/Vol] 49.0 ug/dL Critically low 50.0-170.0 [facility] Comment on above: Performed By: #### C BC #### [facility] [address] [place] [address] Dr. Albert Briscoe TIBC DIRECT 316.0 ug/dL Normal 250.0-450.0 [facility] Comment on above: Performed By: #### C BC #### [facility] [address] [place] [address] Dr. Albert Briscoe METHYLMALONIC ACID (MMA)on 0 1-08-2023 Methylmalonic Acid, Serum 246 nmol/L Normal 0-378 [facility] Comment on above: Performed By: #### C BC #### [facility] [address] [place] [address] Dr. Albert Briscoe CBC AUTO DIFFon 08-25-2022 BASO # 0.0 103/ul Normal 0.0-0.1 [facility] Comment on above: Performed By: #### C BC #### [facility] [address] [place] [address] Dr. Albert Briscoe Basophils/100 WBC (Bld) 0.6 % Normal 0.2-2.0 [facility] Comment on above: Performed By: #### C BC #### [facility] [address] [place] [address] Dr. Albert Briscoe EO # 0.2 103/ul Normal 0.0-0.7 [facility] Comment on above: Performed By: #### C BC #### [facility] [address] [place] [address] Dr. lAbert Briscoe Eosinophils/100 WBC (Bld) 3.3 % Normal 0.9-7.0 [facility] Comment on above: Performed By: #### C BC #### [facility] [address] [place] [address] Dr. Albert Briscoe Erythrocyte distribution width (RBC) [Ratio] 13.7 % Normal 11.0-15.0 [facility] Comment on above: Performed By: #### C BC #### [facility] [address] [place] [address] Dr. Albert Briscoe Hematocrit (Bld) [Volume fraction] 27.3 % Critically low 36.0-48.0 [facility] Comment on above: Performed By: #### C BC #### [facility] [address] [place] [address] Dr. Albert Briscoe Hemoglobin (Bld) [Mass/Vol] 8.9 g/dL Critically low 12.0-16.0 [facility] Comment on above: Performed By: #### C BC #### [facility] [address] [place] [address] Dr. Albert Briscoe IG # 0.15 10e3/ul Critically high 0.00-0.03 [facility] Comment on above: Performed By: #### C BC #### [facility] [address] [place] [address] Dr. Albert Briscoe IG % 2.3 % Critically high 0.0-0.5 [facility] Comment on above: Performed By: #### C BC #### [facility] [address] [place] [address] Dr. Albert Briscoe LYMPH # 1.2 103/ul Normal 1.2-3.8 [facility] Comment on above: Performed By: #### C BC #### [facility] [address] [place] [address] Dr. Albert Briscoe Lymphocytes/100 WBC (Bld) 18.2 % Critically low 20.5-60.0 [facility] Comment on above: Performed By: #### C BC #### [facility] [address] [place] [address] Dr. Albert Briscoe MANUAL DIFF REQ NO Normal [facility] Comment on above: Performed By: #### C BC #### [facility] [address] [place] [address] Dr. Albert Briscoe MCH (RBC) [Entitic mass] 31.2 pg Normal 26.7-34.0 [facility] Comment on above: Performed By: #### C BC #### [facility] [address] [place] [address] Dr. Albert Briscoe MCHC (RBC) [Mass/Vol] 32.6 g/dL Normal 29.9-35.2 [facility] Comment on above: Performed By: #### C BC #### [facility] [address] [place] [address] Dr. Albert Briscoe MCV (RBC) [Entitic vol] 95.8 fL Normal 81.0-99.0 [facility] Comment on above: Performed By: #### C BC #### [facility] [address] [place] [address] Dr. Albert Briscoe MONO # 0.8 103/ul Normal 0.3-0.8 [facility] Comment on above: Performed By: #### C BC #### [facility] [address] [place] [address] Dr. Albert Briscoe Monocytes/100 WBC (Bld) 12.5 % Critically high 1.7-12. 0 [facility] Comment on above: Performed By: #### C BC #### [facility] [address] [place] [address] Dr. Albert Briscoe NEUT # 4.0 103/ul Normal 1.4-6.5 [facility] Comment on above: Performed By: #### C BC #### [facility] [address] [place] [address] Dr. Albert Briscoe Neutrophils/100 WBC (Bld) 63.1 % Normal 43.0-75.0 [facility] Comment on above: Performed By: #### C BC #### [facility] [address] [place] [address] Dr. Albert Briscoe Platelet mean volume (Bld) [Entitic vol] 11.0 fL Normal 9.5-13.5 [facility] Comment on above: Performed By: #### C BC #### [facility] [address] [place] [address] Dr. Albert Briscoe PLT 223 103/ul Normal 150-450 [facility] Comment on above: Performed By: #### C BC #### [facility] [address] [place] [address] Dr. Albert Briscoe RBC 2.85 106/ul Critically low 4.20-5.40 [facility] Comment on above: Performed By: #### C BC #### [facility] [address] [place] [address] Dr. Albret Briscoe WBC 6.4 103/ul Normal 4.0-11.0 [facility] Comment on above: Performed By: #### C BC #### [facility] [address] [place] [address] Dr. Albert Briscoe FERRITINon 08-25-2022 Ferritin [Mass/Vol] 114.0 ng/mL Normal 8.0-252.0 [facility] Comment on above: Performed By: #### F ETIBC, FERR #### [facility] [address] [place] [address] Dr. Albert Briscoe IRON AND TIBCon 08-25-2022 % SATURATION 8.6 % Normal [facility] Comment on above: Performed By: #### F ETIBC, FERR #### [facility] [address] [place] [address] Dr. Albert Briscoe Iron [Mass/Vol] 24.0 ug/dL Critically low 50.0-170.0 [facility] Comment on above: Performed By: #### F ETIBC, FERR #### [facility] [address] [place] [address] Dr. Albert Briscoe TIBC DIRECT 278.0 ug/dL Normal 250.0-450.0 [facility] Comment on above: Performed By: #### F ETIBC, FERR #### [facility] [address] [place] [address] Dr. Albert Briscoe BNPon 08-19-2022 Natriuretic peptide B (Bld) [Mass/Vol] 753.0 pg/mL Normal <=1,800.0 [facility] Comment on above: Performed By: #### C BC #### [facility] [address] [place] [address] Dr. Albert Briscoe CBC AUTO DIFFon 08-19-2022 BASO # 0.1 103/ul Normal 0.0-0.1 [facility] Comment on above: Performed By: #### B 12FOL, FETIBC, FERR #### [facility] [address] [place] [address] Dr. Albert Briscoe Basophils/100 WBC (Bld) 0.9 % Normal 0.2-2.0 [facility] Comment on above: Performed By: #### B 12FOL, FETIBC, FERR #### [facility] [address] [place] [address] Dr. Albert Briscoe EO # 0.1 103/ul Normal 0.0-0.7 [facility] Comment on above: Performed By: #### B 12FOL, FETIBC, FERR #### [facility] [address] [place] [address] Dr. Albert Briscoe Eosinophils/100 WBC (Bld) 2.1 % Normal 0.9-7.0 [facility] Comment on above: Performed By: #### B 12FOL, FETIBC, FERR #### [facility] [address] [place] [address] Dr. Albert Briscoe Erythrocyte distribution width (RBC) [Ratio] 14.0 % Normal 11.0-15.0 [facility] Comment on above: Performed By: #### B 12FOL, FETIBC, FERR #### [facility] [address] [place] [address] Dr. Albert Briscoe Hematocrit (Bld) [Volume fraction] 32.1 % Critically low 36.0-48.0 [facility] Comment on above: Performed By: #### B 12FOL, FETIBC, FERR #### [facility] [address] [place] [address] Dr. Albert Briscoe Hemoglobin (Bld) [Mass/Vol] 10.3 g/dL Critically low 12.0-16.0 [facility] Comment on above: Performed By: #### B 12FOL, FETIBC, FERR #### [facility] [address] [place] [address] Dr. Albert Briscoe IG # 0.22 10e3/ul Critically high 0.00-0.03 [facility] Comment on above: Performed By: #### B 12FOL, FETIBC, FERR #### [facility] [address] [place] [address] Dr. Albert Briscoe IG % 4.1 % Critically high 0.0-0.5 [facility] Comment on above: Performed By: #### B 12FOL, FETIBC, FERR #### [facility] [address] [place] [address] Dr. Albert Briscoe LYMPH # 0.9 103/ul Critically low 1.2-3.8 [facility] Comment on above: Performed By: #### B 12FOL, FETIBC, FERR #### [facility] [address] [place] [address] Dr. Albert Briscoe Lymphocytes/100 WBC (Bld) 17.4 % Critically low 20.5-60.0 [facility] Comment on above: Performed By: #### B 12FOL, FETIBC, FERR #### [facility] [address] [place] [address] Dr. Albert Briscoe MANUAL DIFF REQ NO Normal [facility] Comment on above: Performed By: #### B 12FOL, FETIBC, FERR #### [facility] [address] [place] [address] Dr. Albert Briscoe MCH (RBC) [Entitic mass] 30.7 pg Normal 26.7-34.0 [facility] Comment on above: Performed By: #### B 12FOL, FETIBC, FERR #### [facility] [address] [place] [address] Dr. Albert Briscoe MCHC (RBC) [Mass/Vol] 32.1 g/dL Normal 29.9-35.2 [facility] Comment on above: Performed By: #### B 12FOL, FETIBC, FERR #### [facility] [address] [place] [address] Dr. Albert Briscoe MCV (RBC) [Entitic vol] 95.5 fL Normal 81.0-99.0 [facility] Comment on above: Performed By: #### B 12FOL, FETIBC, FERR #### [facility] [address] [place] [address] Dr. Albert Briscoe MONO # 0.5 103/ul Normal 0.3-0.8 [facility] Comment on above: Performed By: #### B 12FOL, FETIBC, FERR #### [facility] [address] [place] [address] Dr. Albert Briscoe Monocytes/100 WBC (Bld) 9.4 % Normal 1.7-12.0 [facility] Comment on above: Performed By: #### B 12FOL, FETIBC, FERR #### [facility] [address] [place] [address] Dr. Albert Briscoe NEUT # 3.5 103/ul Normal 1.4-6.5 [facility] Comment on above: Performed By: #### B 12FOL, FETIBC, FERR #### [facility] [address] [place] [address] Dr. Albert Briscoe Neutrophils/100 WBC (Bld) 66.1 % Normal 43.0-75.0 [facility] Comment on above: Performed By: #### B 12FOL, FETIBC, FERR #### [facility] [address] [place] [address] Dr. Albert Briscoe Platelet mean volume (Bld) [Entitic vol] 9.6 fL Normal 9.5-13.5 [facility] Comment on above: Performed By: #### B 12FOL, FETIBC, FERR #### [facility] [address] [place] [address] Dr. Albert Bricsoe PLT 247 103/ul Normal 150-450 [facility] Comment on above: Performed By: #### B 12FOL, FETIBC, FERR #### [facility] [address] [place] [address] Dr. Albert Briscoe RBC 3.36 106/ul Critically low 4.20-5.40 [facility] Comment on above: Performed By: #### B 12FOL, FETIBC, FERR #### [facility] [address] [place] [address] Dr. Albert Briscoe WBC 5.3 103/ul Normal 4.0-11.0 [facility] Comment on above: Performed By: #### B 12FOL, FETIBC, FERR #### [facility] [address] [place] [address] Dr. Albert Briscoe [facility] SARS-CoV-2 (COVID-19) RNA TRACIE+probe Ql (Unsp spec) Not detected Normal NOT DETECTED [facility] Comment on above: Result Comment: This test is not yet approved or cleared by the [place] FDA. When there are no FDA-approved or cleared tests available, and other criteria are met, FDA can make tests available under an emergency access mechanism called an Emergency Use Authorization (EUA). The EUA for this test is supported by the [place] of Health and Human Service's (HHS's) declaration [...] By: #### B 12FOL, FETIBC, FERR #### [facility] [address] [place] [address] Dr. Albert Briscoe INFLUENZA A AND B [facility] 08[facility] BELOW Normal [facility] Comment on above: Result Comment: Nega tive for Flu A protein angiten. Infection due to Flu A cannot be ruled out. Flu A angiten in the sample may be below the detection limit of the test. Performed By: #### B 12FOL, FETIBC, FERR #### [facility] [address] [place] [address] Dr. [facility] BELOW Normal [facility] Comment on above: Result Comment: Nega tive for Flu B protein antigen. Infection due to Flu B cannot be ruled out. Flu B antigen in the sample may be below the detection limit of the test. Performed By: #### B 12FOL, FETIBC, FERR #### [facility] [address] [place] [address] Dr. Albert Briscoe INFLUENZA A AG Negative Normal NEGATIVE SEE COMMENT [facility] Comment on above: Performed By: #### B 12FOL, FETIBC, FERR #### [facility] [address] [place] [address] Dr. Albert Briscoe INFLUENZA B AG Negative Normal NEGATIVE SEE COMMENT [facility] Comment on above: Performed By: #### B 12FOL, YUNGIBC, FERR #### [facility] [address] [place] [address] Dr. Albert Briscoe PROF 14(COMP METB)on 022 Albumin [Mass/Vol] 3.5 g/dL Normal 3.4-5.0 [facility] Comment on above: Performed By: #### C BC #### [facility] [address] [place] [address] Dr. Albert Briscoe Albumin/Globulin [Mass ratio] 0.9 {ratio} Normal [facility] Comment on above: Performed By: #### C BC #### [facility] [address] [place] [address] Dr. Albert Briscoe ALP [Catalytic activity/Vol] 106 U/L Normal 46-116 [facility] Comment on above: Performed By: #### C BC #### [facility] [address] [place] [address] Dr. Albert Briscoe ALT [Catalytic activity/Vol] 12 U/L Critically low 14-59 [facility] Comment on above: Performed By: #### C BC #### [facility] [address] [place] [address] Dr. Albert Briscoe Anion gap [Moles/Vol] 12.1 mmol/L Normal [facility] Comment on above: Performed By: #### C BC #### [facility] [address] [place] [address] Dr. Albert Briscoe AST [Catalytic activity/Vol] 14 U/L Critically low 15-37 [facility] Comment on above: Performed By: #### C BC #### [facility] [address] [place] [address] Dr. Albert Briscoe Bilirubin [Mass/Vol] 0.2 mg/dL Normal 0.2-1.0 [facility] Comment on above: Performed By: #### C BC #### [facility] [address] [place] [address] Dr. Albert Briscoe Calcium [Mass/Vol] 8.6 mg/dL Normal 8.5-10.1 [facility] Comment on above: Performed By: #### C BC #### [facility] [address] [address] [address] Albert Briscoe Chloride [Moles/Vol] 96 mmol/L Critically low 98-107 [facility] Comment on above: Performed By: #### C BC #### [facility] [address] [address] [address] Albert Briscoe CO2 [Moles/Vol] 30.9 mmol/L Normal 21.0-32.0 [facility] Comment on above: Performed By: #### C BC #### [facility] [address] [place] [address] Dr. Albert Briscoe Creatinine [Mass/Vol] 1.68 mg/dL Critically high 0.55-1.02 [facility] Comment on above: Performed By: #### C BC #### [facility] [address] [place] [address] Dr. Albert Briscoe EGFR-AF [place]UG[place] 36 mL/min/1.73m2 Critically low >=60 [facility] Comment on above: Performed By: #### C BC #### [facility] [address] [place] [address] Dr. Albert Briscoe EGFR-NON AF [place] 30 mL/min/1.73m2 Critically low >=60 [facility] Comment on above: Performed By: #### C BC #### [facility] [address] [place] [address] Dr. Albert Briscoe Globulin (S) [Mass/Vol] 3.7 g/dL Normal [facility] Comment on above: Performed By: #### C BC #### [facility] [address] [place] [address] Dr. Albert Briscoe Glucose [Mass/Vol] 109 mg/dL Critically high 74-106 [facility] Comment on above: Performed By: #### C BC #### [facility] [address] [place] [address] Dr. Albert Briscoe Potassium [Moles/Vol] 4.0 mmol/L Normal 3.5-5.1 [facility] Comment on above: Performed By: #### C BC #### [facility] [address] [place] [address] Dr. Albert Briscoe Protein [Mass/Vol] 7.2 g/dL Normal 6.4-8.2 [facility] Comment on above: Performed By: #### C BC #### [facility] [address] [address] [address] Albert Briscoe Sodium [Moles/Vol] 135 mmol/L Critically low 136-145 [facility] Comment on above: Performed By: #### C BC #### [facility] [address] [place] [address] Dr. Ablert Briscoe Urea nitrogen [Mass/Vol] 52.0 mg/dL Critically high 7.0-18.0 [facility] Comment on above: Performed By: #### C BC #### [facility] [address] [place] [address] Dr. Albert Briscoe Urea nitrogen/Creatinine [Mass ratio] 31.0 mg/mg Normal [facility] Comment on above: Performed By: #### C BC #### [facility] [address] [place] [address] Dr. Albert Briscoe PROTIMEon 08-19-2022 INR Coag (PPP) [Relative time] 0.98 {INR} Normal [facility] Comment on above: Performed By: #### B 12FOVioletta, FETIBC, FERR #### [facility] [address] [place] [address] Dr. Albert Briscoe INR GUIDELINES SEE BELOW Normal [facility] Comment on above: Result Comment: DREW RED INR: 2.0 - 3.0 CONDITIONS NOT LISTED BELOW 2.5 - 3.5 FOR PROSTHETIC HEART VALVE REPLACEMENT 2.5 - 3.5 RECURRENT THROMBOSIS Performed By: #### B 12FOL, FETIBC, FERR #### [facility] [address] [place] [address] Dr. Albert Briscoe PT Coag (PPP) [Time] 10.6 s Normal 9.0-11.6 [facility] Comment on above: Performed By: #### B 12FOL, FETIBC, FERR #### [facility] [address] [place] [address] Dr. Albert Briscoe PTTon 08-19-2022 aPTT Coag (Bld) [Time] 24.4 s Normal 22.3-36.2 [facility] Comment on above: Performed By: #### B 12FOL, FETIBC, FERR #### [facility] [address] [place] [address] Dr. Albert Briscoe TROPONIN, HIGH SENSITIVITYon 08-19-2022 HSTROP 139.4 pg/mL Critically high 4.0-51.3 [facility] Comment on above: Result Comment: CUT- OFF POINTS HAVE BEEN ESTABLISHED BASED ON THE FOURTH UNIVERSAL DEFINITIONS OF MYOCARDIAL INFARCTION. THE UPPER REFERENCE LIMIT (URL) OF TROPONIN, DEFINED THE 99TH PERCENTILE OF cTnI DISTRIBUTION IN A REFERENCE POPULATION, HAS BEEN CONFIRMED THE DECISION THRESHOLD FOR VT DIAGNOSIS. Performed By: #### C BC #### [facility] [address] [place] [address] Dr. Albert Briscoe HSTROP 150.0 pg/mL Critically high 4.0-51.3 [facility] Comment on above: Result Comment: CUT- OFF POINTS HAVE BEEN ESTABLISHED BASED ON THE FOURTH UNIVERSAL DEFINITIONS OF MYOCARDIAL INFARCTION. THE UPPER REFERENCE LIMIT (URL) OF TROPONIN, DEFINED THE 99TH PERCENTILE OF cTnI DISTRIBUTION IN A REFERENCE POPULATION, HAS BEEN CONFIRMED THE DECISION THRESHOLD FOR VT DIAGNOSIS. Performed By: #### C BC #### [facility] [address] [place] [address] Dr. Albert Briscoe XR CHEST 1 Von 08-19-2022 XR CHEST 1 V EXAMINATION: XR CHES T 1 V HISTORY: Shortness of breath COMPARISON: Portable chest 02/21/2022 TECHNIQUE: Portable chest FINDINGS: The lung parenchyma is free of consolidation or infiltrate. No pneumothorax or pleural effusion. The cardiac, mediastinal and hilar contours are normal. The visualized osseous structures exhibit no gross abnormality. IMPRESSION: No acute cardiopulmonary abnormality. Electronically authenticated by: ALEM ARANDA Date: 2022-08-19 19:33 Normal [facility] CBC AUTO DIFFon 05-25-2022 BASO # 0.1 103/ul Normal 0.0-0.1 [facility] Comment on above: Performed By: #### C BC #### [facility] [address] [place] [address] Dr. Albert Briscoe Basophils/100 WBC (Bld) 1.4 % Normal 0.2-2.0 [facility] Comment on above: Performed By: #### C BC #### [facility] [address] [place] [address] Dr. Albert Briscoe EO # 0.5 103/ul Normal 0.0-0.7 [facility] Comment on above: Performed By: #### C BC #### [facility] [address] [place] [address] Dr. Albert Briscoe Eosinophils/100 WBC (Bld) 11.1 % Critically high 0.9-7.0 [facility] Comment on above: Performed By: #### C BC #### [facility] [address] [place] [address] Dr. Albert Briscoe Erythrocyte distribution width (RBC) [Ratio] 14.6 % Normal 11.0-15.0 [facility] Comment on above: Performed By: #### C BC #### [facility] [address] [place] [address] Dr. Albert Briscoe Hematocrit (Bld) [Volume fraction] 30.8 % Critically low 36.0-48.0 [facility] Comment on above: Performed By: #### C BC #### [facility] [address] [place] [address] Dr. Albert Briscoe Hemoglobin (Bld) [Mass/Vol] 9.6 g/dL Critically low 12.0-16.0 [facility] Comment on above: Performed By: #### C BC #### [facility] [address] [place] [address] Dr. Albert Briscoe IG # 0.03 10e3/ul Normal 0.00-0.03 [facility] Comment on above: Performed By: #### C BC #### [facility] [address] [place] [address] Dr. Albert Briscoe IG % 0.7 % Critically high 0.0-0.5 [facility] Comment on above: Performed By: #### C BC #### [facility] [address] [place] [address] Dr. Albert Briscoe LYMPH # 1.0 103/ul Critically low 1.2-3.8 [facility] Comment on above: Performed By: #### C BC #### [facility] [address] [place] [address] Dr. Albert Briscoe Lymphocytes/100 WBC (Bld) 22.9 % Normal 20.5-60.0 [facility] Comment on above: Performed By: #### C BC #### [facility] [address] [place] [address] Dr. Albert Briscoe MANUAL DIFF REQ NO Normal [facility] Comment on above: Performed By: #### C BC #### [facility] [address] [place] [address] Dr. Albert Briscoe MCH (RBC) [Entitic mass] 32.7 pg Normal 26.7-34.0 [facility] Comment on above: Performed By: #### C BC #### [facility] [address] [place] [address] Dr. Albert Briscoe MCHC (RBC) [Mass/Vol] 31.2 g/dL Normal 29.9-35.2 [facility] Comment on above: Performed By: #### C BC #### [facility] [address] [place] [address] Dr. Albert Briscoe MCV (RBC) [Entitic vol] 104.8 fL Critically high 81.0-99 .0 [facility] Comment on above: Performed By: #### C BC #### [facility] [address] [place] [address] Dr. Albert Briscoe MONO # 0.3 103/ul Normal 0.3-0.8 [facility] Comment on above: Performed By: #### C BC #### [facility] [address] [place] [address] Dr. Albert Briscoe Monocytes/100 WBC (Bld) 7.3 % Normal 1.7-12.0 [facility] Comment on above: Performed By: #### C BC #### [facility] [address] [place] [address] Dr. Albert Briscoe NEUT # 2.5 103/ul Normal 1.4-6.5 [facility] Comment on above: Performed By: #### C BC #### [facility] [address] [place] [address] Dr. Albert Briscoe Neutrophils/100 WBC (Bld) 56.6 % Normal 43.0-75.0 [facility] Comment on above: Performed By: #### C BC #### [facility] [address] [place] [address] Dr. Albert Briscoe Platelet mean volume (Bld) [Entitic vol] 10.4 fL Normal 9.5-13.5 [facility] Comment on above: Performed By: #### C BC #### [facility] [address] [place] [address] Dr. Albert Briscoe PLT 228 103/ul Normal 150-450 [facility] Comment on above: Performed By: #### C BC #### [facility] [address] [place] [address] Dr. Albert Briscoe RBC 2.94 106/ul Critically low 4.20-5.40 [facility] Comment on above: Performed By: #### C BC #### [facility] [address] [place] [address] Dr. Albert Briscoe WBC 4.4 103/ul Normal 4.0-11.0 [facility] Comment on above: Performed By: #### C BC #### [facility] [address] [place] [address] Dr. Albert Briscoe FERRITINon 05-25-2022 Ferritin [Mass/Vol] 353.0 ng/mL Critically high 8.0-252.0 [facility] Comment on above: Performed By: #### B 12FOL, FETIBC, FERR #### [facility] [address] [place] [address] Dr. Albert Briscoe IRON AND TIBCon 10-03-2022 % SATURATION 29.1 % Normal [facility] Comment on above: Performed By: #### B 12FOL, FETIBC, FERR #### [facility] [address] [place] [address] Dr. Albert Briscoe Iron [Mass/Vol] 81.0 ug/dL Normal 50.0-170.0 [facility] Comment on above: Performed By: #### B 12FOL, FETIBC, FERR #### [facility] [address] [place] [address] Dr. Albert Briscoe TIBC DIRECT 278.0 ug/dL Normal 250.0-450.[address] [facility] Comment on above: Performed By: #### B 12FOL, FETIBC, FERR #### [facility] [address] [place] [address] Dr. Albert Briscoe RETICULOCYTEon 05-25-2022 RETIC 3.02 % Normal 0.60-3.10 [facility] Comment on above: Performed By: #### C BC #### [facility] [address] [place] [address] Dr. Albert Briscoe VIT B12 AND FOLATEon 022 Cobalamin (Vitamin B12) [Mass/Vol] 3512.0 pg/mL Critically high 193.0-986.0 [facility] Comment on above: Performed By: #### B 12FOL, FETIBC, FERR #### [facility] [address] [place] [address] Dr. Albert Briscoe FOLATE 8.20 ng/mL Critically low 8.60-58.90 [facility] Comment on above: Performed By: #### B 12FOL, FETIBC, FERR #### [facility] [address] [place] [address] Dr. Albert Briscoe Albumin [Mass/volume] in Ser um or PlasmaOrdered By: Bell Camargo on 04-30-2022 Albumin [Mass/Vol] 3.6 g/dL 3.2-5.5 [facility] Basophils Auto (Bld) [#/Vol] Ordered By: Bell Camargo on 04-30-2022 Basophils (Bld) [#/Vol] 0.1 10*3/uL 0.0-0.2 [facility] Basophils/100 WBC Auto (Bld) Ordered By: Bell Camargo on 04-30-2022 Basophils/100 WBC (Bld) 1.8 % . [facility] Blood hemoglobin measurement (mass/volume)Ordered By: Bell Camargo on 04-30-2022 Hemoglobin (Bld) [Mass/Vol] 7.4 g/dL 11.8-15.4 [facility] Blood leukocytes automated c ount (number/volume)Ordered By: Bell Camargo on 04-30-2022 WBC (Bld) [#/Vol] 3.4 10*3/uL 4.5-11.[address] [facility] [address] biopsyOrdered By: Bell Reynolds se on 04-30-2022 Transferrin [Mass/Vol] 246 mg/dL 180-380 Fi [facility] Creatinine and Glomerular fi ltration rate.predicted panel (S/P/Bld)Ordered By: Bell Camargo on 04-30-2022 Creatinine [Mass/Vol] 2.16 mg/dL 0.44-1.03 [facility] Eosinophils Auto (Bld) [#/Vo l]Ordered By: Bell Camargo on 04-30-2022 Eosinophils (Bld) [#/Vol] 0.4 10*3/uL 0.0-0.45 [facility] Eosinophils/100 WBC Auto (Bl d)Ordered By: Bell Camargo on 04-30-2022 Eosinophils/100 WBC (Bld) 11.9 % . [facility] Erythrocyte distribution wid th Auto (RBC) [Ratio]Ordered By: Bell Camargo on 04-30-2022 Erythrocyte distribution width (RBC) [Ratio] 17.0 % 11.9-15.3 [facility] Estimated glomerular filtrat ion rate (GFR) non- AmericanOrdered By: Bell Camargo on 04-30-2022 GFR/1.73 sq M.predicted among non-blacks MDRD (S/P/Bld) [Vol rate/Area] 22 mL/Min [facility] GFR/1.73 sq M.predicted among non-blacks MDRD (S/P/Bld) [Vol rate/Area] Estimated glomerular filtration rate (GFR) non- [facility] Ferritin [Mass/volume] in Se rum or PlasmaOrdered By: Bell Camargo on 04-30-2022 Ferritin [Mass/Vol] 54.9 ng/mL 11-306.8 [facility] Globulin Calc (S) [Mass/Vol] Ordered By: Bell Camargo on 04-30-2022 Globulin (S) [Mass/Vol] 2.5 g/dL F [facility] Hematocrit Auto (Bld) [Volum e fraction]Ordered By: Bell Camargo on 04-30-2022 Hematocrit (Bld) [Volume fraction] 23.2 % 34.0-46.4 [facility] Iron [Mass/volume] in Serum or PlasmaOrdered By: Bell Camargo on 04-30-2022 Iron [Mass/Vol] 65 ug/dL 40-150 [facility] Iron binding capacity [Mass/ volume] in Serum or PlasmaOrdered By: Bell Camargo on 04-30-2022 Iron binding capacity [Mass/Vol] 344 ug/dL 255-450 [facility] Iron saturation [Mass Fracti on] in Serum or PlasmaOrdered By: Bell Camargo on 04-30-2022 Iron saturation [Mass fraction] 18.0 % 20-50 [facility] - Hematology and Cell countsOrdered By: Bell Camargo on 04-30-2022 Nucleated RBC/100 WBC (Bld) [Ratio] 0.1 % 0-0.5 [facility] Lymphocytes Auto (Bld) [#/Vo l]Ordered By: Bell Camargo on 04-30-2022 Lymphocytes (Bld) [#/Vol] 1.0 10*3/uL 1.00-4.8 [facility] Lymphocytes/100 WBC Auto (Bl d)Ordered By: Bell Camargo on 04-30-2022 Lymphocytes/100 WBC (Bld) 29.7 % . [facility] MCH Auto (RBC) [Entitic mass ]Ordered By: Bell Camargo on 04-30-2022 MCH (RBC) [Entitic mass] 31.6 pg 24.7-34.3 [facility] MCHC Auto (RBC) [Mass/Vol]Or dered By: Bell Camargo on 04-30-2022 MCHC (RBC) [Mass/Vol] 32.1 g/dL 32.0-35.0 [facility] MCV Auto (RBC) [Entitic vol] Ordered By: Bell Camargo on 04-30-2022 MCV (RBC) [Entitic vol] 98.5 fL 80-100 [facility] Monocytes Auto (Bld) [#/Vol] Ordered By: Bell Camargo on 04-30-2022 Monocytes (Bld) [#/Vol] 0.2 10*3/uL 0.0-0.8 [facility] Monocytes/100 WBC Auto (Bld) Ordered By: Bell Camargo on 04-30-2022 Monocytes/100 WBC (Bld) 7.3 % . [facility] Neutrophils Auto (Bld) [#/Vo l]Ordered By: Bell Camargo on 04-30-2022 Neutrophils (Bld) [#/Vol] 1.7 10*3/uL 1.8-7.7 [facility] Neutrophils/100 WBC Auto (Bl d)Ordered By: Bell Camargo on 04-30-2022 Neutrophils/100 WBC (Bld) 49.3 % . [facility] No Panel InformationOrdered By: Bell Camargo on 04-30-2022 Estimated GFR () 27 mL/Min [facility] Comment on above: GFR estimated refere nce range: According to KDOQI guidelines, <60 ml/min/1.73m2 is sufficient to diagnose a patient with chronic kidney disease. Pharmacy Creatinine Clearance (Chem 21.95 [facility] Platelet mean volume Auto (B ld) [Entitic vol]Ordered By: Bell Camargo on 04-30-2022 Platelet mean volume (Bld) [Entitic vol] 8.1 fL 6.3-10.7 [facility] Platelets Auto (Bld) [#/Vol] Ordered By: Bell Camargo on 04-30-2022 Platelets (Bld) [#/Vol] 332 10*3/uL 150-450 [facility] Protein [Mass/volume] in Ser um or PlasmaOrdered By: Bell Camargo on 04-30-2022 Protein [Mass/Vol] 6.1 g/dL 6.1-7.9 [facility] RBC Auto (Bld) [#/Vol]Ordere d By: Bell Camargo on 04-30-2022 RBC (Bld) [#/Vol] 2.36 10*6/uL 3.60-5.00 [facility] Serum or plasma alanine moore otransferase measurement without P-5'-P (enzymatic activiOrdered By: Bell Camargo on 04-30-2022 ALT No additional P-5'-P [Catalytic activity/Vol] 10 U/L 10-60 [facility] Serum or plasma albumin/glob ulin mass ratioOrdered By: Bell Camargo on 04-30-2022 Albumin/Globulin [Mass ratio] 1.4 {ratio} [facility] Serum or plasma alkaline akshat sphatase measurement (enzymatic activity/volume)Ordered By: Bell Camargo on 04-30-2022 ALP [Catalytic activity/Vol] 57 U/L 32-92 [facility] Serum or plasma anion gap de terminationOrdered By: Bell Camargo on 04-30-2022 Anion gap [Moles/Vol] 16.0 mmol/L 6.0-15.0 [facility] Serum or plasma aspartate am inotransferase measurement (enzymatic activity/volume)Ordered By: Bell Camargo on 04-30-2022 AST [Catalytic activity/Vol] 17 U/L 10-42 [facility] Serum or plasma calcium ej urement (mass/volume)Ordered By: Bell Camargo on 04-30-2022 Calcium [Mass/Vol] 8.9 mg/dL 8.2-10.2 [facility] Serum or plasma chloride mak surement (moles/volume)Ordered By: Bell Camargo on 04-30-2022 Chloride [Moles/Vol] 100 mmol/L 95-114 [facility] Serum or plasma glucose ej urement (mass/volume)Ordered By: Bell Camargo on 04-30-2022 Glucose [Mass/Vol] 98 mg/dL 70-100 [facility] Comment on above: ADA recommended refe rence rangeRandom Glucose Reference Range is dependent on time and content of last meal. Glucose of more than 200 mg/dL in a nonstressed, ambulatory subject supports the diagnosis of Diabetes Mellitus. Serum or plasma potassium me asurement (moles/volume)Ordered By: Bell Camargo on 04-30-2022 Potassium [Moles/Vol] 4.7 mmol/L 3.5-5.1 [facility] Serum or plasma sodium measu rement (moles/volume)Ordered By: Bell Camargo on 04-30-2022 Sodium [Moles/Vol] 139 mmol/L 136-146 [facility] Serum or plasma total biliru bin measurement (mass/volume)Ordered By: Bell Camargo on 04-30-2022 Bilirubin [Mass/Vol] 0.7 mg/dL 0.3-1.2 [facility] Serum or plasma total carbon dioxide measurement (moles/volume)Ordered By: Bell Camargo on 04-30-2022 CO2 [Moles/Vol] 27.7 mmol/L 22.0-30.0 [facility] Serum or plasma urea nitroge n measurement (mass/volume)Ordered By: Bell Camargo on 04-30-2022 Urea nitrogen [Mass/Vol] 43 mg/dL 9-23 [facility] Basophil percentageOrdered B y: Bell Camargo on 04-17-2022 Basophil percentage Basophil percentage High 1-3 [facility] Eosinophils/100 WBC (Bld) 5 % High 1-3 [facility] Basophils Auto (Bld) [#/Vol] Ordered By: Bell Camargo on 04-17-2022 Basophils (Bld) [#/Vol] N/A [facility] Basophils/100 WBC Auto (Bld) Ordered By: Bell Camargo on 04-17-2022 Basophils/100 WBC (Bld) N/A [facility] Blood anisocytosis detection Ordered By: Bell Camargo on 04-17-2022 Anisocytosis Ql (Bld) Slight [facility] Anisocytosis Ql (Bld) Blood anisocytosis detection [facility] Blood hemoglobin measurement (mass/volume)Ordered By: Bell Camargo on 04-17-2022 Hemoglobin (Bld) [Mass/Vol] 7.6 g/dL 11.8-15.4 [facility] Blood leukocytes automated c ount (number/volume)Ordered By: Bell Camargo on 04-17-2022 WBC (Bld) [#/Vol] 5.8 10*3/uL 4.5-11.[address] [facility] [address] biopsyOrdered By: Bell Reynolds se on 04-17-2022 Transferrin [Mass/Vol] 234 mg/dL 180-380 [facility] Eosinophils Auto (Bld) [#/Vo l]Ordered By: Bell Camargo on 04-17-2022 Eosinophils (Bld) [#/Vol] N/A [facility] Eosinophils/100 WBC Auto (Bl d)Ordered By: Bell Camargo on 04-17-2022 Eosinophils/100 WBC (Bld) N/A [facility] Erythrocyte distribution wid th Auto (RBC) [Ratio]Ordered By: Bell Camargo on 04-17-2022 Erythrocyte distribution width (RBC) [Ratio] 16.2 % 11.9-15.3 [facility] Ferritin [Mass/volume] in Se rum or PlasmaOrdered By: Bell Camargo on 04-17-2022 Ferritin [Mass/Vol] 77.8 ng/mL 11-306.8 [facility] Hematocrit Auto (Bld) [Volum e fraction]Ordered By: Bell Camargo on 04-17-2022 Hematocrit (Bld) [Volume fraction] 23.6 % 34.0-46.4 [facility] Iron [Mass/volume] in Serum or PlasmaOrdered By: Bell Camargo on 04-17-2022 Iron [Mass/Vol] 40 ug/dL 40-150 [facility] Iron binding capacity [Mass/ volume] in Serum or PlasmaOrdered By: Bell Camargo on 04-17-2022 Iron binding capacity [Mass/Vol] 328 ug/dL 255-450 [facility] Iron saturation [Mass Fracti on] in Serum or PlasmaOrdered By: Bell Camargo on 04-17-2022 Iron saturation [Mass fraction] 12.0 % 20-50 [facility] - Hematology and Cell countsOrdered By: Bell Camargo on 04-17-2022 Nucleated RBC/100 WBC (Bld) [Ratio] 0.2 % 0-0.5 [facility] Lymphocytes Auto (Bld) [#/Vo l]Ordered By: Bell Camargo on 04-17-2022 Lymphocytes (Bld) [#/Vol] N/A [facility] Lymphocytes/100 WBC Auto (Bl d)Ordered By: Bell Camargo on 04-17-2022 Lymphocytes/100 WBC (Bld) N/A [facility] Lymphocytes/100 WBC (Bld) 19 % [facility] Lymphocytes/100 WBC (Bld) Lymphocytes/100 leukocytes in Blood by Automated count [facility] MCH Auto (RBC) [Entitic mass ]Ordered By: Bell Camargo on 04-17-2022 MCH (RBC) [Entitic mass] 33.1 pg 24.7-34.3 [facility] MCHC Auto (RBC) [Mass/Vol]Or dered By: Bell Camargo on 04-17-2022 MCHC (RBC) [Mass/Vol] 32.4 g/dL 32.0-35.0 [facility] MCV Auto (RBC) [Entitic vol] Ordered By: Bell Camargo on 04-17-2022 MCV (RBC) [Entitic vol] 102.3 fL 80-100 [facility] Macrocytes detectionOrdered By: Bell Camargo on 04-17-2022 Macrocytes Ql (Bld) Slight [facility] Macrocytes Ql (Bld) Macrocytes detection [facility] Metamyelocytes/100 WBC Manua l cnt (Bld)Ordered By: Bell Camargo on 04-17-2022 Metamyelocytes/100 WBC (Bld) 2 % High 0-0 [facility] Metamyelocytes/100 WBC (Bld) Metamyelocytes/100 leukocytes in Blood by Manual count High 0-0 [facility] Monocyte %Ordered By: Bell clarke on 04-17-2022 Monocytes/100 WBC (Bld) 5 % 1-3 [facility] Monocytes Auto (Bld) [#/Vol] Ordered By: Bell Camargo on 04-17-2022 Monocytes (Bld) [#/Vol] N/A [facility] Monocytes/100 WBC Auto (Bld) Ordered By: Bell Camargo on 04-17-2022 Monocytes/100 WBC (Bld) N/A [facility] Monocytes/100 WBC Manual cnt (Bld)Ordered By: Bell Camargo on 04-17-2022 Monocytes/100 WBC (Bld) 12 % High 2-11 [facility] Monocytes/100 WBC (Bld) Monocytes/100 leukocytes in Blood by Manual count High 2-11 [facility] Myelocytes/100 WBC Manual cn t (Bld)Ordered By: Bell Camargo on 04-17-2022 Myelocytes/100 WBC (Bld) 2 % High 0-0 [facility] Myelocytes/100 WBC (Bld) Myelocytes/100 leukocytes in Blood by Manual count High 0-0 [facility] Neutrophils Auto (Bld) [#/Vo l]Ordered By: Bell Camargo on 04-17-2022 Neutrophils (Bld) [#/Vol] N/A [facility] Neutrophils/100 WBC Auto (Bl d)Ordered By: Bell Camargo on 04-17-2022 Neutrophils/100 WBC (Bld) N/A [facility] No Panel InformationOrdered By: Bell Camargo on 04-17-2022 Platelet Estimate Normal Normal [facility] Platelet Morphology Comment Normal Normal [facility] Platelet mean volume Auto (B ld) [Entitic vol]Ordered By: Bell Camargo on 04-17-2022 Platelet mean volume (Bld) [Entitic vol] 8.3 fL 6.3-10.7 [facility] Platelets Auto (Bld) [#/Vol] Ordered By: Bell Camargo on 04-17-2022 Platelets (Bld) [#/Vol] 339 10*3/uL 150-450 [facility] RBC Auto (Bld) [#/Vol]Ordere d By: Bell Camargo on 04-17-2022 RBC (Bld) [#/Vol] 2.30 10*6/uL 3.60-5.00 [facility] RBC morphologyOrdered By: Aida Camargo on 04-17-2022 RBC morphology finding Nom (Bld) N/A [facility] RBC morphology finding Nom (Bld) RBC morphology [facility] Segmented neutrophils/100 WB C Manual cnt (Bld)Ordered By: Bell Camargo on 04-17-2022 Segmented neutrophils/100 WBC (Bld) 60 % 50-70 [facility] Segmented neutrophils/100 WBC (Bld) Manual blood segmented neutrophils/100 leukocytes 50-70 [facility] CBC AUTO DIFFon 04-16-2022 BASO # 0.1 103/ul Normal 0.0-0.1 [facility] Comment on above: Performed By: #### B 12FOL, FETIBC, FERR #### [facility] [address] [place] [address] Dr. Albert Briscoe Basophils/100 WBC (Bld) 1.5 % Normal 0.2-2.0 [facility] Comment on above: Performed By: #### B 12FOL, FETIBC, FERR #### [facility] [address] [place] [address] Dr. Albert Briscoe EO # 0.4 103/ul Normal 0.0-0.7 [facility] Comment on above: Performed By: #### B 12FOL, FETIBC, FERR #### [facility] [address] [place] [address] Dr. Albert Briscoe Eosinophils/100 WBC (Bld) 6.1 % Normal 0.9-7.0 [facility] Comment on above: Performed By: #### B 12FOL, FETIBC, FERR #### [facility] [address] [place] [address] Dr. Albert Briscoe Erythrocyte distribution width (RBC) [Ratio] 14.9 % Normal 11.0-15.0 [facility] Comment on above: Performed By: #### B 12FOL, FETIBC, FERR #### [facility] [address] [place] [address] Dr. Albert Briscoe Hematocrit (Bld) [Volume fraction] 22.1 % Critically low 36.0-48.0 [facility] Comment on above: Performed By: #### B 12FOL, FETIBC, FERR #### [facility] [address] [place] [address] Dr. Albert Briscoe Hemoglobin (Bld) [Mass/Vol] 6.8 g/dL Critically low 12.0-16.0 [facility] Comment on above: Performed By: #### B 12FOL, FETIBC, FERR #### [facility] [address] [place] [address] Dr. Albert Briscoe IG # 0.17 10e3/ul Critically high 0.00-0.03 [facility] Comment on above: Performed By: #### B 12FOL, FETIBC, FERR #### [facility] [address] [place] [address] Dr. Albert Briscoe IG % 2.8 % Critically high 0.0-0.5 [facility] Comment on above: Performed By: #### B 12FOL, FETIBC, FERR #### [facility] [address] [place] [address] Dr. Albert Briscoe LYMPH # 1.6 103/ul Normal 1.2-3.8 [facility] Comment on above: Performed By: #### B 12FOL, FETIBC, FERR #### [facility] [address] [place] [address] Dr. Albert Briscoe Lymphocytes/100 WBC (Bld) 25.7 % Normal 20.5-60.0 [facility] Comment on above: Performed By: #### B 12FOL, FETIBC, FERR #### [facility] [address] [place] [address] Dr. Albert Briscoe MANUAL DIFF REQ NO Normal [facility] Comment on above: Performed By: #### B 12FOL, FETIBC, FERR #### [facility] [address] [place] [address] Dr. Albert Briscoe MCH (RBC) [Entitic mass] 33.2 pg Normal 26.7-34.0 [facility] Comment on above: Performed By: #### B 12FOL, FETIBC, FERR #### [facility] [address] [place] [address] Dr. Albert Briscoe MCHC (RBC) [Mass/Vol] 30.8 g/dL Normal 29.9-35.2 [facility] Comment on above: Performed By: #### B 12FOL, FETIBC, FERR #### [facility] [address] [place] [address] Dr. Albert Briscoe MCV (RBC) [Entitic vol] 107.8 fL Critically high 81.0-99 .0 [facility] Comment on above: Performed By: #### B 12FOL, FETIBC, FERR #### [facility] [address] [place] [address] Dr. Albert Briscoe MONO # 0.6 103/ul Normal 0.3-0.8 [facility] Comment on above: Performed By: #### B 12FOL, FETIBC, FERR #### [facility] [address] [place] [address] Dr. Albert Briscoe Monocytes/100 WBC (Bld) 9.4 % Normal 1.7-12.0 [facility] Comment on above: Performed By: #### B 12FOL, FETIBC, FERR #### [facility] [address] [place] [address] Dr. Albert Briscoe NEUT # 3.3 103/ul Normal 1.4-6.5 [facility] Comment on above: Performed By: #### B 12FOL, FETIBC, FERR #### [facility] [address] [place] [address] Dr. Albert Briscoe Neutrophils/100 WBC (Bld) 54.5 % Normal 43.0-75.0 [facility] Comment on above: Performed By: #### B 12FOL, FETIBC, FERR #### [facility] [address] [place] [address] Dr. Albert Briscoe Platelet mean volume (Bld) [Entitic vol] 10.3 fL Normal 9.5-13.5 [facility] Comment on above: Performed By: #### B 12FOL, FETIBC, FERR #### [facility] [address] [place] [address] Dr. Albert Briscoe PLT 336 103/ul Normal 150-450 [facility] Comment on above: Performed By: #### B 12FOL, FETIBC, FERR #### [facility] [address] [place], [place] [id number] Dr. Albert Briscoe RBC 2.05 106/ul Critically low 4.20-5.40 [facility] Comment on above: Result Comment: Hypo chromasia 2+ Macrocytosis 2+ Performed By: #### B 12FOL, FETIBC, FERR #### [facility] [address] [place] [address] Dr. Albert Briscoe WBC 6.1 103/ul Normal 4.0-11.0 [facility] Comment on above: Performed By: #### B 12FOL, FETIBC, FERR #### [facility] [address] [place] [address] Dr. Albert Briscoe PROF 14(COMP METB)on 022 Albumin [Mass/Vol] 3.5 g/dL Normal 3.4-5.0 [facility] Comment on above: Performed By: #### C BC #### [facility] [address] [place] [address] Dr. Albert Briscoe Albumin/Globulin [Mass ratio] 1.2 {ratio} Normal [facility] Comment on above: Performed By: #### C BC #### [facility] [address] [place] [address] Dr. Albert Briscoe ALP [Catalytic activity/Vol] 63 U/L Normal 46-116 [facility] Comment on above: Performed By: #### C BC #### [facility] [address] [place] [address] Dr. Albert Briscoe ALT [Catalytic activity/Vol] 19 U/L Normal 14-59 [facility] Comment on above: Performed By: #### C BC #### [facility] [address] [place] [address] Dr. Albert Briscoe Anion gap [Moles/Vol] 12.8 mmol/L Normal [facility] Comment on above: Performed By: #### C BC #### [facility] [address] [place] [address] Dr. Albert Briscoe AST [Catalytic activity/Vol] 21 U/L Normal 15-37 [facility] Comment on above: Performed By: #### C BC #### [facility] [address] [address] [address] Albert Briscoe Bilirubin [Mass/Vol] 0.2 mg/dL Normal 0.2-1.0 [facility] Comment on above: Performed By: #### C BC #### [facility] [address] [address] [address] Albert Briscoe Calcium [Mass/Vol] 8.3 mg/dL Critically low 8.5-10.1 [facility] Comment on above: Performed By: #### C BC #### [facility] [address] [address] [address] Albert Briscoe Chloride [Moles/Vol] 101 mmol/L Normal 98-107 [facility] Comment on above: Performed By: #### C BC #### [facility] [address] [place] [address] Dr. Albert Briscoe CO2 [Moles/Vol] 28.8 mmol/L Normal 21.0-32.0 [facility] Comment on above: Performed By: #### C BC #### [facility] [address] [address] [address] Albert Briscoe Creatinine [Mass/Vol] 1.95 mg/dL Critically high 0.55-1.02 [facility] Comment on above: Performed By: #### C BC #### [facility] [address] [place] [address] Dr. Albert Briscoe EGFR-AF [place] 30 mL/min/1.73m2 Critically low >=60 [facility] Comment on above: Performed By: #### C BC #### [facility] [address] [address] [address] Albert Briscoe EGFR-NON AF [place] 25 mL/min/1.73m2 Critically low >=60 [facility] Comment on above: Performed By: #### C BC #### [facility] [address] [address] [address] Albert Briscoe Globulin (S) [Mass/Vol] 3.0 g/dL Normal [facility] Comment on above: Performed By: #### C BC #### [facility] [address] [address] [address] Albert Briscoe Glucose [Mass/Vol] 89 mg/dL Normal 74-106 [facility] Comment on above: Performed By: #### C BC #### [facility] [address] [address] [address] Albert Briscoe Potassium [Moles/Vol] 4.6 mmol/L Normal 3.5-5.1 [facility] Comment on above: Performed By: #### C BC #### [facility] [address] [address] [address] Albert Briscoe Protein [Mass/Vol] 6.5 g/dL Normal 6.4-8.2 [facility] Comment on above: Performed By: #### C BC #### [facility] [address] [place] [address] Dr. Albert Briscoe Sodium [Moles/Vol] 138 mmol/L Normal 136-145 [facility] Comment on above: Performed By: #### C BC #### [facility] [address] [place] [address] Dr. Albert Briscoe Urea nitrogen [Mass/Vol] 52.0 mg/dL Critically high 7.0-18.0 [facility] Comment on above: Performed By: #### C BC #### [facility] [address] [place] [address] Dr. Albert Briscoe Urea nitrogen/Creatinine [Mass ratio] 26.7 mg/mg Normal [facility] Comment on above: Performed By: #### C BC #### [facility] [address] [address] [address] Albetr Briscoe CBC AUTO DIFFon 04-09-2022 BASO # 0.0 103/ul Normal 0.0-0.1 [facility] Comment on above: Performed By: #### C BC #### [facility] [address] [address] [address] Albert Briscoe Basophils/100 WBC (Bld) 0.8 % Normal 0.2-2.0 [facility] Comment on above: Performed By: #### C BC #### [facility] [address] [place] [address] Dr. Albert Briscoe EO # 0.4 103/ul Normal 0.0-0.7 [facility] Comment on above: Performed By: #### C BC #### [facility] [address] [place] [address] Dr. Albert Briscoe Eosinophils/100 WBC (Bld) 7.4 % Critically high 0.9-7.0 [facility] Comment on above: Performed By: #### C BC #### [facility] [address] [place] [address] Dr. Albert Briscoe Erythrocyte distribution width (RBC) [Ratio] 15.6 % Critically high 11.0-15.0 [facility] Comment on above: Performed By: #### C BC #### [facility] [address] [place] [address] Dr. Albert Briscoe Hematocrit (Bld) [Volume fraction] 24.0 % Critically low 36.0-48.0 [facility] Comment on above: Performed By: #### C BC #### [facility] [address] [place] [address] Dr. Albert Briscoe Hemoglobin (Bld) [Mass/Vol] 7.4 g/dL Critically low 12.0-16.0 [facility] Comment on above: Performed By: #### C BC #### [facility] [address] [place] [address] Dr. Albert Briscoe IG # 0.05 10e3/ul Critically high 0.00-0.03 [facility] Comment on above: Performed By: #### C BC #### [facility] [address] [place] [address] Dr. Albert Briscoe IG % 1.0 % Critically high 0.0-0.5 [facility] Comment on above: Performed By: #### C BC #### [facility] [address] [place] [address] Dr. Albert Briscoe LYMPH # 1.2 103/ul Normal 1.2-3.8 [facility] Comment on above: Performed By: #### C BC #### [facility] [address] [address] [address] Albert Briscoe Lymphocytes/100 WBC (Bld) 23.9 % Normal 20.5-60.0 [facility] Comment on above: Performed By: #### C BC #### [facility] [address] [address] [address] Albert Briscoe MANUAL DIFF REQ NO Normal [facility] Comment on above: Performed By: #### C BC #### [facility] [address] [place] [address] Dr. Albert Briscoe MCH (RBC) [Entitic mass] 32.7 pg Normal 26.7-34.0 [facility] Comment on above: Performed By: #### C BC #### [facility] [address] [place] [address] Dr. Albert Briscoe MCHC (RBC) [Mass/Vol] 30.8 g/dL Normal 29.9-35.2 [facility] Comment on above: Performed By: #### C BC #### [facility] [address] [place] [address] Dr. Albert Briscoe MCV (RBC) [Entitic vol] 106.2 fL Critically high 81.0-99 .0 [facility] Comment on above: Performed By: #### C BC #### [facility] [address] [place] [address] Dr. Albert Briscoe MONO # 0.4 103/ul Normal 0.3-0.8 [facility] Comment on above: Performed By: #### C BC #### [facility] [address] [place] [address] Dr. Albert Briscoe Monocytes/100 WBC (Bld) 8.2 % Normal 1.7-12.0 [facility] Comment on above: Performed By: #### C BC #### [facility] [address] [place] [address] Dr. Albert Briscoe NEUT # 2.8 103/ul Normal 1.4-6.5 [facility] Comment on above: Performed By: #### C BC #### [facility] [address] [address] [address] Albert Briscoe Neutrophils/100 WBC (Bld) 58.7 % Normal 43.0-75.0 [facility] Comment on above: Performed By: #### C BC #### [facility] [address] [place] [address] Dr. Albert Briscoe Platelet mean volume (Bld) [Entitic vol] 10.3 fL Normal 9.5-13.5 [facility] Comment on above: Performed By: #### C BC #### [facility] [address] [place] [address] Dr. Albert Briscoe PLT 279 103/ul Normal 150-450 [facility] Comment on above: Performed By: #### C BC #### [facility] [address] [place] [address] Dr. Albert Briscoe RBC 2.26 106/ul Critically low 4.20-5.40 [facility] Comment on above: Performed By: #### C BC #### [facility] [address] [place] [address] Dr. Albert Briscoe WBC 4.9 103/ul Normal 4.0-11.0 [facility] Comment on above: Performed By: #### C BC #### [facility] [address] [place] [address] Dr. Albert Briscoe FERRITINon 04-09-2022 Ferritin [Mass/Vol] 170.0 ng/mL Normal 8.0-252.0 [facility] Comment on above: Performed By: #### B 12FOL, FETIBC, FERR #### [facility] [address] [place] [address] Dr. Albert Briscoe IRON AND TIBCon 04-09-2022 % SATURATION 20.6 % Normal [facility] Comment on above: Performed By: #### B 12FOL, FETIBC, FERR #### [facility] [address] [place] [address] Dr. Albert Briscoe Iron [Mass/Vol] 57.0 ug/dL Normal 50.0-170.0 [facility] Comment on above: Performed By: #### B 12FOL, FETIBC, FERR #### [facility] [address] [place] [address] Dr. Albert Briscoe TIBC DIRECT 277.0 ug/dL Normal 250.0-450.0 [facility] Comment on above: Performed By: #### B 12FOL, FETIBC, FERR #### [facility] [address] [place] [address] Dr. Albert Briscoe CBC AUTO DIFFon 02-27-2022 BASO # 0.0 103/ul Normal 0.0-0.1 [facility] Comment on above: Performed By: #### B 12FOL, FETIBC, FERR #### [facility] [address] [place] [address] Dr. Albert Briscoe Basophils/100 WBC (Bld) 0.4 % Normal 0.2-2.0 [facility] Comment on above: Performed By: #### B 12FOL, FETIBC, FERR #### [facility] [address] [place] [address] Dr. Albert Briscoe EO # 0.0 103/ul Normal 0.0-0.7 [facility] Comment on above: Performed By: #### B 12FOL, FETIBC, FERR #### [facility] [address] [place] [address] Dr. Albert Briscoe Eosinophils/100 WBC (Bld) 0.0 % Critically low 0.9-7.0 [facility] Comment on above: Performed By: #### B 12FOL, FETIBC, FERR #### [facility] [address] [place] [address] Dr. Albert Briscoe Erythrocyte distribution width (RBC) [Ratio] 14.6 % Normal 11.0-15.0 [facility] Comment on above: Performed By: #### B 12FOL, FETIBC, FERR #### [facility] [address] [place] [address] Dr. Albert Briscoe Hematocrit (Bld) [Volume fraction] 26.1 % Critically low 36.0-48.0 [facility] Comment on above: Performed By: #### B 12FOL, FETIBC, FERR #### [facility] [address] [place] [address] Dr. Albert Briscoe Hemoglobin (Bld) [Mass/Vol] 8.4 g/dL Critically low 12.0-16.0 [facility] Comment on above: Performed By: #### B 12FOL, FETIBC, FERR #### [facility] [address] [place] [address] Dr. Albert Briscoe IG # 0.49 10e3/ul Critically high 0.00-0.03 [facility] Comment on above: Performed By: #### B 12FOL, FETIBC, FERR #### [facility] [address] [place] [address] Dr. Albert Briscoe IG % 6.1 % Critically high 0.0-0.5 [facility] Comment on above: Performed By: #### B 12FOL, FETIBC, FERR #### [facility] [address] [place] [address] Dr. Albert Briscoe LYMPH # 1.0 103/ul Critically low 1.2-3.8 [facility] Comment on above: Performed By: #### B 12FOL, FETIBC, FERR #### [facility] [address] [place] [address] Dr. Albert Briscoe Lymphocytes/100 WBC (Bld) 11.9 % Critically low 20.5-60.0 [facility] Comment on above: Performed By: #### B 12FOL, FETIBC, FERR #### [facility] [address] [place] [address] Dr. Albert Briscoe MANUAL DIFF REQ NO Normal [facility] Comment on above: Performed By: #### B 12FOL, FETIBC, FERR #### [facility] [address] [place] [address] Dr. Albert Briscoe MCH (RBC) [Entitic mass] 31.1 pg Normal 26.7-34.0 [facility] Comment on above: Performed By: #### B 12FOL, FETIBC, FERR #### [facility] [address] [place] [address] Dr. Albert Briscoe MCHC (RBC) [Mass/Vol] 32.2 g/dL Normal 29.9-35.2 [facility] Comment on above: Performed By: #### B 12FOL, FETIBC, FERR #### [facility] [address] [place] [address] Dr. Albert Briscoe MCV (RBC) [Entitic vol] 96.7 fL Normal 81.0-99.0 [facility] Comment on above: Performed By: #### B 12FOL, FETIBC, FERR #### [facility] [address] [place] [address] Dr. Albert Briscoe MONO # 0.5 103/ul Normal 0.3-0.8 [facility] Comment on above: Performed By: #### B 12FOL, FETIBC, FERR #### [facility] [address] [place] [address] Dr. Albert Briscoe Monocytes/100 WBC (Bld) 6.1 % Normal 1.7-12.0 [facility] Comment on above: Performed By: #### B 12FOL, FETIBC, FERR #### [facility] [address] [place] [address] Dr. Albert Briscoe NEUT # 6.1 103/ul Normal 1.4-6.5 [facility] Comment on above: Performed By: #### B 12FOL, FETIBC, FERR #### [facility] [address] [place] [address] Dr. Albert Briscoe Neutrophils/100 WBC (Bld) 75.5 % Critically high 43.0-75.0 [facility] Comment on above: Performed By: #### B 12FOL, FETIBC, FERR #### [facility] [address] [place] [address] Dr. Albert Briscoe Platelet mean volume (Bld) [Entitic vol] 10.3 fL Normal 9.5-13.5 [facility] Comment on above: Performed By: #### B 12FOL, FETIBC, FERR #### [facility] [address] [place] [address] Dr. Albert Briscoe PLT 348 103/ul Normal 150-450 [facility] Comment on above: Performed By: #### B 12FOL, FETIBC, FERR #### [facility] [address] [place] [address] Dr. Albert Briscoe RBC 2.70 106/ul Critically low 4.20-5.40 [facility] Comment on above: Performed By: #### B 12FOL, FETIBC, FERR #### [facility] [address] [place] [address] Dr. Albert Briscoe WBC 8.1 103/ul Normal 4.0-11.0 [facility] Comment on above: Performed By: #### B 12FOL, FETIBC, FERR #### [facility] [address] [place] [address] Dr. Albert Briscoe FERRITINon 02-27-2022 Ferritin [Mass/Vol] 56.0 ng/mL Normal 8.0-252.0 [facility] Comment on above: Performed By: #### C BC #### [facility] [address] [place] [address] Dr. Albert Briscoe IRON AND TIBCon 02-27-2022 % SATURATION 24.0 % Normal [facility] Comment on above: Performed By: #### C BC #### [facility] [address] [place] [address] Dr. Albert Briscoe Iron [Mass/Vol] 84.0 ug/dL Normal 50.0-170.0 [facility] Comment on above: Performed By: #### C BC #### [facility] [address] [place] [address] Dr. Albert Briscoe TIBC DIRECT 350.0 ug/dL Normal 250.0-450.[address] [facility] Comment on above: Performed By: #### C BC #### [facility] [address] [place] [address] Dr. Albert Briscoe BNPon 02-21-2022 Natriuretic peptide B (Bld) [Mass/Vol] 725.0 pg/mL Normal <=1,800.0 [facility] Comment on above: Performed By: #### B 12FOL, YUNGIBC, FERR #### [facility] [address] [place] [address] Dr. Ablert Briscoe CBC AUTO DIFFon 02-21-2022 BASO # 0.1 103/ul Normal 0.0-0.1 [facility] Comment on above: Performed By: #### C BC #### [facility] [address] [place] [address] Dr. Albert Briscoe Basophils/100 WBC (Bld) 0.5 % Normal 0.2-2.0 [facility] Comment on above: Performed By: #### C BC #### [facility] [address] [place] [address] Dr. Albert Briscoe EO # 0.1 103/ul Normal 0.0-0.7 [facility] Comment on above: Performed By: #### C BC #### [facility] [address] [place] [address] Dr. Albert Briscoe Eosinophils/100 WBC (Bld) 0.8 % Critically low 0.9-7.0 [facility] Comment on above: Performed By: #### C BC #### [facility] [address] [place] [address] Dr. Albert Briscoe Erythrocyte distribution width (RBC) [Ratio] 14.8 % Normal 11.0-15.0 [facility] Comment on above: Performed By: #### C BC #### [facility] [address] [place] [address] Dr. Albert Briscoe Hematocrit (Bld) [Volume fraction] 28.4 % Critically low 36.0-48.0 [facility] Comment on above: Performed By: #### C BC #### [facility] [address] [place] [address] Dr. Albert Briscoe Hemoglobin (Bld) [Mass/Vol] 9.2 g/dL Critically low 12.0-16.0 [facility] Comment on above: Performed By: #### C BC #### [facility] [address] [place] [address] Dr. Albert Briscoe IG # 0.33 10e3/ul Critically high 0.00-0.03 [facility] Comment on above: Performed By: #### C BC #### [facility] [address] [place] [address] Dr. Albert Briscoe IG % 2.0 % Critically high 0.0-0.5 [facility] Comment on above: Performed By: #### C BC #### [facility] [address] [place] [address] Dr. Albert Briscoe LYMPH # 1.2 103/ul Normal 1.2-3.8 [facility] Comment on above: Performed By: #### C BC #### [facility] [address] [place] [address] Dr. Albert Briscoe Lymphocytes/100 WBC (Bld) 7.1 % Critically low 20.5-60.0 [facility] Comment on above: Performed By: #### C BC #### [facility] [address] [place] [address] Dr. Albert Briscoe MANUAL DIFF REQ NO Normal [facility] Comment on above: Performed By: #### C BC #### [facility] [address] [place] [address] Dr. Albert Briscoe MCH (RBC) [Entitic mass] 31.5 pg Normal 26.7-34.0 [facility] Comment on above: Performed By: #### C BC #### [facility] [address] [place] [address] Dr. Albert Briscoe MCHC (RBC) [Mass/Vol] 32.4 g/dL Normal 29.9-35.2 [facility] Comment on above: Performed By: #### C BC #### [facility] [address] [place] [address] Dr. Albert Briscoe MCV (RBC) [Entitic vol] 97.3 fL Normal 81.0-99.0 [facility] Comment on above: Performed By: #### C BC #### [facility] [address] [place] [address] Dr. Albert Briscoe MONO # 1.2 103/ul Critically high 0.3-0.8 [facility] Comment on above: Performed By: #### C BC #### [facility] [address] [place] [address] Dr. Albert Briscoe Monocytes/100 WBC (Bld) 7.2 % Normal 1.7-12.0 [facility] Comment on above: Performed By: #### C BC #### [facility] [address] [place] [address] Dr. Albert Briscoe NEUT # 13.5 103/ul Critically high 1.4-6.5 [facility] Comment on above: Performed By: #### C BC #### [facility] [address] [place] [address] Dr. Albert Briscoe Neutrophils/100 WBC (Bld) 82.4 % Critically high 43.0-75.0 [facility] Comment on above: Performed By: #### C BC #### [facility] [address] [place] [address] Dr. Albert Briscoe Platelet mean volume (Bld) [Entitic vol] 10.1 fL Normal 9.5-13.5 [facility] Comment on above: Performed By: #### C BC #### [facility] [address] [place] [address] Dr. Albert Briscoe PLT 282 103/ul Normal 150-450 [facility] Comment on above: Performed By: #### C BC #### [facility] [address] [place] [address] Dr. Albert Briscoe RBC 2.92 106/ul Critically low 4.20-5.40 [facility] Comment on above: Performed By: #### C BC #### [facility] [address] [place] [address] Dr. Albert Briscoe WBC 16.4 103/ul Critically high 4.0-11.0 [facility] Comment on above: Performed By: #### C BC #### [facility] [address] [place] [address] Dr. Albert Briscoe Covid-19 PCR (CVDTBH)on SARS-CoV-2 (COVID-19) RNA TRACIE+probe Ql (Unsp spec) Not detected Normal NOT DETECTED [facility] Comment on above: Result Comment: When [...] for this test is supported by the [place] of Health and Human Service's declaration that [...] used). Performed By: #### C VDTBH #### [facility] [address] [place] [address] Dr. Albert Briscoe PROF CHEM 8 (BAS METB)on Anion gap [Moles/Vol] 11.0 mmol/L Normal [facility] Comment on above: Performed By: #### B 12FOL, FETIBC, FERR #### [facility] [address] [address] [address] Albert Briscoe Calcium [Mass/Vol] 8.8 mg/dL Normal 8.5-10.1 [facility] Comment on above: Performed By: #### B 12FOL, FETIBC, FERR #### [facility] [address] [address] [address] Albert Briscoe Chloride [Moles/Vol] 101 mmol/L Normal 98-107 [facility] Comment on above: Performed By: #### B 12FOL, FETIBC, FERR #### [facility] [address] [address] [address] Albert Briscoe CO2 [Moles/Vol] 28.6 mmol/L Normal 21.0-32.0 [facility] Comment on above: Performed By: #### B 12FOL, FETIBC, FERR #### [facility] [address] [place] [address] Dr. Albert Briscoe Creatinine [Mass/Vol] 1.65 mg/dL Critically high 0.55-1.02 [facility] Comment on above: Performed By: #### B 12FOL, FETIBC, FERR #### [facility] [address] [place] [address] Dr. Albert Briscoe EGFR-AF [place] 37 mL/min/1.73m2 Critically low >=60 [facility] Comment on above: Performed By: #### B 12FOL, FETIBC, FERR #### [facility] [address] [place] [address] Dr. Albert Briscoe EGFR-NON AF [place] 30 mL/min/1.73m2 Critically low >=60 [facility] Comment on above: Performed By: #### B 12FOL, FETIBC, FERR #### [facility] [address] [place] [address] Dr. Albert Briscoe Glucose [Mass/Vol] 115 mg/dL Critically high 74-106 [facility] Comment on above: Performed By: #### B 12FOL, FETIBC, FERR #### [facility] [address] [place] [address] Dr. Albert Briscoe Potassium [Moles/Vol] 4.6 mmol/L Normal 3.5-5.1 [facility] Comment on above: Performed By: #### B 12FOL, FETIBC, FERR #### [facility] [address] [place] [address] Dr. Albert Briscoe Sodium [Moles/Vol] 136 mmol/L Normal 136-145 [facility] Comment on above: Performed By: #### B 12FOL, FETIBC, FERR #### [facility] [address] [place] [address] Dr. Albert Briscoe Urea nitrogen [Mass/Vol] 48.0 mg/dL Critically high 7.0-18.0 [facility] Comment on above: Performed By: #### B 12FOL, FETIBC, FERR #### [facility] [address] [place] [address] Dr. Albert Briscoe Urea nitrogen/Creatinine [Mass ratio] 29.1 mg/mg Normal [facility] Comment on above: Performed By: #### B 12FOL, FETIBC, FERR #### [facility] [address] [place] [address] Dr. Albert Briscoe TROPONIN, HIGH SENSITIVITYon 02-21-2022 HSTROP 202.4 pg/mL Critically high 4.0-51.3 [facility] Comment on above: Result Comment: CUT- OFF POINTS HAVE BEEN ESTABLISHED BASED ON THE FOURTH UNIVERSAL DEFINITIONS OF MYOCARDIAL INFARCTION. THE UPPER REFERENCE LIMIT (URL) OF TROPONIN, DEFINED THE 99TH PERCENTILE OF cTnI DISTRIBUTION IN A REFERENCE POPULATION, HAS BEEN CONFIRMED THE DECISION THRESHOLD FOR [place] DIAGNOSIS. Performed By: #### B 12FOL, FETIBC, FERR #### [facility] [address] [place] [address] Dr. Albert Briscoe XR CHEST 1 Von [...] osseous change otherwise identified. Electronically authenticated by: [employer] MARYLOU Date: 2022-02-21 10:35 Normal [facility] CBC AUTO DIFFon 01-30-2022 BASO # 0.1 103/ul Normal 0.0-0.1 [facility] Comment on above: Performed By: #### B 12FOL, FETIBC, FERR #### [facility] [address] [place] [address] Dr. Albert Briscoe Basophils/100 WBC (Bld) 0.9 % Normal 0.2-2.0 [facility] Comment on above: Performed By: #### B 12FOL, FETIBC, FERR #### [facility] [address] [place] [address] Dr. Albert Briscoe EO # 0.4 103/ul Normal 0.0-0.7 [facility] Comment on above: Performed By: #### B 12FOL, FETIBC, FERR #### [facility] [address] [place] [address] Dr. Albert Briscoe Eosinophils/100 WBC (Bld) 6.6 % Normal 0.9-7.0 [facility] Comment on above: Performed By: #### B 12FOL, FETIBC, FERR #### [facility] [address] [place] [address] Dr. Albert Briscoe Erythrocyte distribution width (RBC) [Ratio] 15.6 % Critically high 11.0-15.0 [facility] Comment on above: Performed By: #### B 12FOL, FETIBC, FERR #### [facility] [address] [place] [address] Dr. Albert Briscoe Hematocrit (Bld) [Volume fraction] 31.0 % Critically low 36.0-48.0 [facility] Comment on above: Performed By: #### B 12FOL, FETIBC, FERR #### [facility] [address] [place] [address] Dr. Albert Briscoe Hemoglobin (Bld) [Mass/Vol] 9.6 g/dL Critically low 12.0-16.0 [facility] Comment on above: Performed By: #### B 12FOL, FETIBC, FERR #### [facility] [address] [place] [address] Dr. Albert Briscoe IG # 0.04 10e3/ul Critically high 0.00-0.03 [facility] Comment on above: Performed By: #### B 12FOL, FETIBC, FERR #### [facility] [address] [place] [address] Dr. Albert Briscoe IG % 0.8 % Critically high 0.0-0.5 [facility] Comment on above: Performed By: #### B 12FOL, FETIBC, FERR #### [facility] [address] [place] [address] Dr. Albert Briscoe LYMPH # 1.1 103/ul Critically low 1.2-3.8 [facility] Comment on above: Performed By: #### B 12FOL, FETIBC, FERR #### [facility] [address] [place] [address] Dr. Albert Briscoe Lymphocytes/100 WBC (Bld) 20.8 % Normal 20.5-60.0 [facility] Comment on above: Performed By: #### B 12FOL, FETIBC, FERR #### [facility] [address] [place] [address] Dr. Albert Briscoe MANUAL DIFF REQ NO Normal [facility] Comment on above: Performed By: #### B 12FOL, FETIBC, FERR #### [facility] [address] [place] [address] Dr. Albert Briscoe MCH (RBC) [Entitic mass] 31.2 pg Normal 26.7-34.0 [facility] Comment on above: Performed By: #### B 12FOL, FETIBC, FERR #### [facility] [address] [place] [address] Dr. Albert Briscoe MCHC (RBC) [Mass/Vol] 31.0 g/dL Normal 29.9-35.2 [facility] Comment on above: Performed By: #### B 12FOL, FETIBC, FERR #### [facility] [address] [place] [address] Dr. Albert Briscoe MCV (RBC) [Entitic vol] 100.6 fL Critically high 81.0-99 .0 [facility] Comment on above: Performed By: #### B 12FOL, FETIBC, FERR #### [facility] [address] [place] [address] Dr. Albert Briscoe MONO # 0.5 103/ul Normal 0.3-0.8 [facility] Comment on above: Performed By: #### B 12FOL, FETIBC, FERR #### [facility] [address] [place] [address] Dr. Albert Briscoe Monocytes/100 WBC (Bld) 8.8 % Normal 1.7-12.0 [facility] Comment on above: Performed By: #### B 12FOL, FETIBC, FERR #### [facility] [address] [place] [address] Dr. Albert Briscoe NEUT # 3.3 103/ul Normal 1.4-6.5 [facility] Comment on above: Performed By: #### B 12FOL, FETIBC, FERR #### [facility] [address] [place] [address] Dr. Albert Briscoe Neutrophils/100 WBC (Bld) 62.1 % Normal 43.0-75.0 [facility] Comment on above: Performed By: #### B 12FOL, FETIBC, FERR #### [facility] [address] [place] [address] Dr. Albert Briscoe Platelet mean volume (Bld) [Entitic vol] 10.4 fL Normal 9.5-13.5 [facility] Comment on above: Performed By: #### B 12FOL, FETIBC, FERR #### [facility] [address] [place] [address] Dr. Albert Briscoe PLT 250 103/ul Normal 150-450 [facility] Comment on above: Performed By: #### B 12FOL, FETIBC, FERR #### [facility] [address] [place] [address] Dr. Albert Briscoe RBC 3.08 106/ul Critically low 4.20-5.40 [facility] Comment on above: Performed By: #### B 12FOL, FETIBC, FERR #### [facility] [address] [place] [address] Dr. Albert Briscoe WBC 5.3 103/ul Normal 4.0-11.0 [facility] Comment on above: Performed By: #### B 12FOL, FETIBC, FERR #### [facility] [address] [place] [address] Dr. Albert Briscoe CBC AUTO DIFFon 01-01-2022 BASO # 0.1 103/ul Normal 0.0-0.1 [facility] Comment on above: Performed By: #### B 12FOL, FETIBC, FERR #### [facility] [address] [place] [address] Dr. Albert Briscoe Basophils/100 WBC (Bld) 1.7 % Normal 0.2-2.0 [facility] Comment on above: Performed By: #### B 12FOL, FETIBC, FERR #### [facility] [address] [place] [address] Dr. Albert Briscoe EO # 0.5 103/ul Normal 0.0-0.7 [facility] Comment on above: Performed By: #### B 12FOL, FETIBC, FERR #### [facility] [address] [place] [address] Dr. Albert Briscoe Eosinophils/100 WBC (Bld) 11.9 % Critically high 0.9-7.0 [facility] Comment on above: Performed By: #### B 12FOL, FETIBC, FERR #### [facility] [address] [place] [address] Dr. Albert Briscoe Erythrocyte distribution width (RBC) [Ratio] 16.6 % Critically high 11.0-15.0 [facility] Comment on above: Performed By: #### B 12FOL, FETIBC, FERR #### [facility] [address] [place] [address] Dr. Albert Briscoe Hematocrit (Bld) [Volume fraction] 30.5 % Critically low 36.0-48.0 [facility] Comment on above: Performed By: #### B 12FOL, FETIBC, FERR #### [facility] [address] [place] [address] Dr. Albert Briscoe Hemoglobin (Bld) [Mass/Vol] 9.6 g/dL Critically low 12.0-16.0 [facility] Comment on above: Performed By: #### B 12FOL, FETIBC, FERR #### [facility] [address] [place] [address] Dr. Albert Briscoe IG # 0.03 10e3/ul Normal 0.00-0.03 [facility] Comment on above: Performed By: #### B 12FOL, FETIBC, FERR #### [facility] [address] [place] [address] Dr. Albert Briscoe IG % 0.7 % Critically high 0.0-0.5 [facility] Comment on above: Performed By: #### B 12FOL, FETIBC, FERR #### [facility] [address] [place] [address] Dr. Albert Briscoe LYMPH # 1.2 103/ul Normal 1.2-3.8 [facility] Comment on above: Performed By: #### B 12FOL, FETIBC, FERR #### [facility] [address] [place] [address] Dr. Albert Briscoe Lymphocytes/100 WBC (Bld) 29.8 % Normal 20.5-60.0 [facility] Comment on above: Performed By: #### B 12FOL, FETIBC, FERR #### [facility] [address] [place] [address] Dr. Albert Briscoe MANUAL DIFF REQ NO Normal [facility] Comment on above: Performed By: #### B 12FOL, FETIBC, FERR #### [facility] [address] [place] [address] Dr. Albert Briscoe MCH (RBC) [Entitic mass] 30.9 pg Normal 26.7-34.0 [facility] Comment on above: Performed By: #### B 12FOL, FETIBC, FERR #### [facility] [address] [place] [address] Dr. Albert Briscoe MCHC (RBC) [Mass/Vol] 31.5 g/dL Normal 29.9-35.2 [facility] Comment on above: Performed By: #### B 12FOL, FETIBC, FERR #### [facility] [address] [place] [address] Dr. Albert Briscoe MCV (RBC) [Entitic vol] 98.1 fL Normal 81.0-99.0 [facility] Comment on above: Performed By: #### B 12FOL, FETIBC, FERR #### [facility] [address] [place] [address] Dr. Albert Briscoe MONO # 0.4 103/ul Normal 0.3-0.8 [facility] Comment on above: Performed By: #### B 12FOL, FETIBC, FERR #### [facility] [address] [place] [address] Dr. Albert Briscoe Monocytes/100 WBC (Bld) 10.2 % Normal 1.7-12.0 [facility] Comment on above: Performed By: #### B 12FOL, FETIBC, FERR #### [facility] [address] [place] [address] Dr. Albert Briscoe NEUT # 1.8 103/ul Normal 1.4-6.5 [facility] Comment on above: Performed By: #### B 12FOL, FETIBC, FERR #### [facility] [address] [place] [address] Dr. Albert Briscoe Neutrophils/100 WBC (Bld) 45.7 % Normal 43.0-75.0 [facility] Comment on above: Performed By: #### B 12FOL, FETIBC, FERR #### [facility] [address] [place] [address] Dr. Albert Briscoe Platelet mean volume (Bld) [Entitic vol] 10.3 fL Normal 9.5-13.5 [facility] Comment on above: Performed By: #### B 12FOL, FETIBC, FERR #### [facility] [address] [place] [address] Dr. Albert Briscoe PLT 270 103/ul Normal 150-450 [facility] Comment on above: Performed By: #### B 12FOL, FETIBC, FERR #### [facility] [address] [place] [address] Dr. Albert Briscoe RBC 3.11 106/ul Critically low 4.20-5.40 [facility] Comment on above: Performed By: #### B 12FOL, FETIBC, FERR #### [facility] [address] [place], [place] [address] Dr. Albert Briscoe WBC 4.0 103/ul Normal 4.0-11.0 [facility] Comment on above: Performed By: #### B 12FOL, FETIBC, FERR #### [facility] [address] [place], [place] [address] Dr. Albert Briscoe XR RIBS RT PA [...] by: LOVE COTTON Date: 2021-12-22 11:16 Normal [facility] CBCon 05-30-2020 Erythrocyte distribution width (RBC) [Ratio] 15.0 % High 11.5 - 14.5 [facility] Comment on above: Performed By: #### C BC #### [address] [id number] Hematocrit (Bld) [Volume fraction] 43.9 % Normal 36.0 - 46.0 [facility] Comment on above: Performed By: #### C BC #### [address] [id number] Hemoglobin (Bld) [Mass/Vol] 13.7 g/dL Normal 12.0 - 16.0 [facility] Comment on above: Performed By: #### C BC #### [address] [id number] MCHC (RBC) [Mass/Vol] 31.2 g/dL Low 32.0 - 36.0 [facility] Comment on above: Performed By: #### C BC #### [address] [id number] MCV (RBC) [Entitic vol] 102 fL High 80 - 100 [facility] Comment on above: Performed By: #### C BC #### [address] [id number] Platelets (Bld) [#/Vol] 254 10*3/uL Normal 150 - 450 [facility] Comment on above: Performed By: #### C BC #### [address] [id number] RBC (Bld) [#/Vol] 4.32 x10E12/L Normal 4.00 - 5.20 [facility] Comment on above: Performed By: #### C BC #### [address] [id number] WBC (Bld) [#/Vol] 5.2 10*3/uL Normal 4.4 - 11.3 [facility] Comment on above: Performed By: #### C BC #### [address] [id number] CREATININEon 05-30-2020 Creatinine [Mass/Vol] 59 mL/min/1.73m2 Abnormal >60 [facility] Comment on above: Performed By: #### C REAT #### [address] [id number] Creatinine [Mass/Vol] 0.93 mg/dL Normal 0.50 - 1.05 [facility] Comment on above: Performed By: #### C REAT #### [address] [id number] Creatinine [Mass/Vol] 71 mL/min/1.73m2 Normal >60 [facility] Comment on above: Result Comment: CALC ULATIONS OF ESTIMATED GFR ARE PERFORMED USING THE MDRD STUDY EQUATION FOR THE IDMS-TRACEABLE CREATININE METHODS. CLIN CHEM 2007;53:766-72 Performed By: #### C REAT #### [address] [id number] ELECTROLYTE PANELon 05-30-20 20 Anion gap [Moles/Vol] 10 mmol/L Normal 10 - 20 [facility] Comment on above: Performed By: #### E LECT #### [address] [id number] Chloride [Moles/Vol] 105 mmol/L Normal 98 - 107 [facility] Comment on above: Performed By: #### E LECT #### [address] [id number] HCO3 (Bld) [Moles/Vol] 28 mmol/L Normal 21 - 32 [facility] Comment on above: Performed By: #### E LECT #### [address] [id number] Potassium [Moles/Vol] 4.2 mmol/L Normal 3.5 - 5.3 [facility] Comment on above: Performed By: #### E LECT #### [address] [id number] Sodium [Moles/Vol] 139 mmol/L Normal 136 - 145 [facility] Comment on above: Performed By: #### E LECT #### [address] [id number] TSHon 05-30-2020 TSH Qn 8.01 m[IU]/L High 0.44 - 3.98 [facility] Comment on above: Result Comment: TSH testing is performed using different testing methodology at [facility] than at other [facility]. Direct result comparisons should only be made within the same method. Performed By: #### T SH2 #### [address] [id number] UREA NITROGENon 05-30-2020 Urea nitrogen [Mass/Vol] 22 mg/dL Normal 6 - 23 [facility] Comment on above: Performed By: #### U TRINI #### [address] [id number] NOH CARDIAC STRESS/REST INJE CTIONon 06-30-2019 [facility] CARDIAC STRESS/REST INJECTION Patient Name: TERRI NEWTON STUDY: MYOCARDIAL PERFUSION STRESS TEST WITH LEXISCAN Performing facility: [facility], [address] [place] [address], [address], [place] [address] [facility] Provider: Kat LOZADA NP PCP: Dr. Ceci DUNN Supervising provider: CARLO BRO INDICATION: Abnormal EKG; FATIGUE HISTORY: Gender: F; Age: 74 y/o ; Height: 162.56 cm; Weight: 72.3007163 kg. HTN PALPITATIONS COPD FATIGUE Family HX CAD; Currently smoking. COMPARISON: ACCESSION NUMBER(S): [id number] ORDERING CLINICIAN: LAURA LOZADA TECHNIQUE: ONE DAY [...] comparison. Electronically signed by: KYRA YEPEZ MD [facility] Vital Signs Date Time Vital Sign Value Performing Clinician Facility 01-01-2025 09:48-0400 Body height 162.6 cm Jayy Lomas MD Work Phone: [facility] 01-01-2025 09:48-0400 Body mass index (BMI) [Ratio] 25.23 kg/m2 Jayy Lomas MD Work Phone: [facility] 01-01-2025 09:48-0400 Body weight 66.68 kg Jayy Lomas MD Work Phone: [facility] 01-01-2025 09:48-0400 Diastolic blood pressure 70 mm[Hg] Jayy Lomas MD Work Phone: [facility] 01-01-2025 09:48-0400 Heart rate 52 /min Jayy Lomas MD Work Phone: [facility] 01-01-2025 09:48-0400 SaO2% (BldA) [Mass fraction] 93 % Jayy Lomas MD Work Phone: [facility] 01-01-2025 09:48-0400 Systolic blood pressure 122 mm[Hg] Jayy Lomas MD Work Phone: [facility] 12-18-2024 14:50-0400 Body height 162.56 cm Jarrell Granados MD Work Phone: [facility] 12-18-2024 14:50-0400 Body mass index (BMI) [Ratio] 24.9 kg/m2 Jarrell Granados MD Work Phone: [facility] 12-18-2024 14:50-0400 Body temperature 97.8 [degF] Jarrell Granados MD Work Phone: [facility] 12-18-2024 14:50-0400 Body weight 65.77 kg Jarrell Granados MD Work Phone: [facility] 12-18-2024 14:50-0400 Diastolic blood pressure 67 mm[Hg] Jarrell Granados MD Work Phone: [facility] 12-18-2024 14:50-0400 Heart rate 52 /min Jarrell Granados MD Work Phone: [facility] 12-18-2024 14:50-0400 Respiratory rate 16 /min Jarrell Granados MD Work Phone: [facility] 12-18-2024 14:50-0400 SaO2% (BldA) [Mass fraction] 98 % Jarrell Granados MD Work Phone: [facility] 12-18-2024 14:50-0400 Systolic blood pressure 148 mm[Hg] Jarrell Granados MD Work Phone: [facility] 09-22-2024 09:30-0500 Body height 162.6 cm Jayy Lomas MD Work Phone: [facility] 09-22-2024 09:30-0500 Body mass index (BMI) [Ratio] 23.52 kg/m2 Jayy Lomas MD Work Phone: [facility] 09-22-2024 09:30-0500 Body weight 62.14 kg Jayy Lomas MD Work Phone: [facility] 09-22-2024 09:30-0500 Diastolic blood pressure 60 mm[Hg] Jayy Lomas MD Work Phone: [facility] 09-22-2024 09:30-0500 Heart rate 62 /min Jayy Lomas MD Work Phone: [facility] 09-22-2024 09:30-0500 SaO2% (BldA) [Mass fraction] 97 % Jayy Lomas MD Work Phone: [facility] 09-22-2024 09:30-0500 Systolic blood pressure 132 mm[Hg] Jayy Lomas MD Work Phone: [facility] 08-31-2024 14:25-0500 Body temperature 98.2 [degF] Jarrell Granados MD Work Phone: [facility] 08-31-2024 14:25-0500 Diastolic blood pressure 57 mm[Hg] Jarrell Granados MD Work Phone: [facility] 08-31-2024 14:25-0500 Heart rate 74 /min Jarrell Granados MD Work Phone: [facility] 08-31-2024 14:25-0500 Respiratory rate 20 /min Jarrell Granados MD Work Phone: [facility] 08-31-2024 14:25-0500 SaO2% (BldA) [Mass fraction] 98 % Jarrell Granados MD Work Phone: [facility] 08-31-2024 14:25-0500 Systolic blood pressure 145 mm[Hg] Jarrell Granados MD Work Phone: [facility] 08-30-2024 14:00-0500 Body height 162.6 cm Gay Kovacs ENTERTAINER OR VARIETY ARTIST Work Phone: [facility] 08-30-2024 14:00-0500 Body mass index (BMI) [Ratio] 23.52 kg/m2 Gay Kovacs ENTERTAINER OR VARIETY ARTIST Work Phone: [facility] 08-30-2024 14:00-0500 Body weight 62.14 kg Gay Kovacs ENTERTAINER OR VARIETY ARTIST Work Phone: [facility] 08-30-2024 14:00-0500 Diastolic blood pressure 68 mm[Hg] Gay Kovacs ENTERTAINER OR VARIETY ARTIST Work Phone: [facility] 08-30-2024 14:00-0500 Heart rate 57 /min Gay Kovacs ENTERTAINER OR VARIETY ARTIST Work Phone: [facility] 08-30-2024 14:00-0500 Respiratory rate 17 /min Gay Kovacs ENTERTAINER OR VARIETY ARTIST Work Phone: [facility] 08-30-2024 14:00-0500 SaO2% (BldA) [Mass fraction] 98 % Gay Kovacs ENTERTAINER OR VARIETY ARTIST Work Phone: [facility] 08-30-2024 14:00-0500 Systolic blood pressure 118 mm[Hg] Gay Kovacs NP Work Phone: [facility] 08-25-2024 09:56-0500 Body height 162.6 cm Jayy Lomas MD Work Phone: [facility] 08-25-2024 09:56-0500 Body mass index (BMI) [Ratio] 23.86 kg/m2 Jayy Lomas MD Work Phone: [facility] 08-25-2024 09:56-0500 Body weight 63.05 kg Jayy Lomas MD Work Phone: [facility] 08-25-2024 09:56-0500 Diastolic blood pressure 50 mm[Hg] Jayy Lomas MD Work Phone: [facility] 08-25-2024 09:56-0500 Heart rate 63 /min Jayy Lomas MD Work Phone: [facility] 08-25-2024 09:56-0500 SaO2% (BldA) [Mass fraction] 94 % Jayy Lomas MD Work Phone: [facility] 08-25-2024 09:56-0500 Systolic blood pressure 100 mm[Hg] Jayy Lomas MD Work Phone: [facility] 08-07-2024 13:11-0500 Body height 162.6 cm Jayy Lomas MD Work Phone: [facility] 08-07-2024 13:11-0500 Body mass index (BMI) [Ratio] 23.69 kg/m2 Jayy Lomas MD Work Phone: [facility] 08-07-2024 13:11-0500 Body temperature 97.9 [degF] Jayy Lomas MD Work Phone: [facility] 08-07-2024 13:11-0500 Body weight 62.6 kg Jayy Lomas MD Work Phone: [facility] 08-07-2024 13:11-0500 Diastolic blood pressure 64 mm[Hg] Jayy Lomas MD Work Phone: [facility] 08-07-2024 13:11-0500 Heart rate 66 /min Jayy Lomas MD Work Phone: [facility] 08-07-2024 13:11-0500 SaO2% (BldA) [Mass fraction] 95 % Jayy Lomas MD Work Phone: [facility] 08-07-2024 13:11-0500 Systolic blood pressure 126 mm[Hg] Jayy Lomas MD Work Phone: [facility] 07-03-2024 08:25-0500 Body height 162.6 cm Jayy Lomas MD Work Phone: [facility] 07-03-2024 08:25-0500 Body mass index (BMI) [Ratio] 23.69 kg/m2 Jayy Lomas MD Work Phone: [facility] 07-03-2024 08:25-0500 Body weight 62.6 kg Jayy Lomas MD Work Phone: [facility] 07-03-2024 08:25-0500 Diastolic blood pressure 66 mm[Hg] Jayy Lomas MD Work Phone: [facility] 07-03-2024 08:25-0500 Heart rate 52 /min Jayy Lomas MD Work Phone: [facility] 07-03-2024 08:25-0500 SaO2% (BldA) [Mass fraction] 94 % Jayy Lomas MD Work Phone: [facility] 07-03-2024 08:25-0500 Systolic blood pressure 122 mm[Hg] Jayy Lomas MD Work Phone: [facility] 05-11-2024 09:52-0400 Body height 162.56 cm MD Jarrell Granados Work Phone: [facility] 05-11-2024 09:52-0400 Body mass index (BMI) [Ratio] 23.1 kg/m2 MD Jarrell Granados Work Phone: [facility] 05-11-2024 09:52-0400 Body temperature 97.2 [degF] MD Jarrell Granados Work Phone: [facility] 05-11-2024 09:52-0400 Body weight 61.23 kg MD Jarrell Granados Work Phone: [facility] 05-11-2024 09:52-0400 Diastolic blood pressure 64 mm[Hg] MD Jarrell Granados Work Phone: [facility] 05-11-2024 09:52-0400 Heart rate 62 /min MD Jarrell Granados Work Phone: [facility] 05-11-2024 09:52-0400 Respiratory rate 16 /min MD Jarrell Granados Work Phone: [facility] 05-11-2024 09:52-0400 SaO2% (BldA) [Mass fraction] 100 % MD Jarrell Granados Work Phone: [facility] 05-11-2024 09:52-0400 Systolic blood pressure 148 mm[Hg] MD Jarrell Granados Work Phone: [facility] 01-07-2024 09:10-0400 Body height 162.56 cm MD Jarrell Granados Work Phone: [facility] 01-07-2024 09:10-0400 Body mass index (BMI) [Ratio] 24 kg/m2 MD Jarrell Granados Work Phone: [facility] 01-07-2024 09:10-0400 Body temperature 98.1 [degF] MD Jarrell Granados Work Phone: [facility] 01-07-2024 09:10-0400 Body weight 63.5 kg MD Jarrell Granados Work Phone: [facility] 01-07-2024 09:10-0400 Diastolic blood pressure 41 mm[Hg] MD Jarrell Granados Work Phone: [facility] 01-07-2024 09:10-0400 Heart rate 64 /min MD Jarrell Granados Work Phone: [facility] 01-07-2024 09:10-0400 Respiratory rate 18 /min MD Jarrell Granados Work Phone: [facility] 01-07-2024 09:10-0400 SaO2% (BldA) [Mass fraction] 98 % MD Jarrell Granados Work Phone: [facility] 01-07-2024 09:10-0400 Systolic blood pressure 105 mm[Hg] MD Jarrell Granados Work Phone: [facility] 01-06-2024 09:55-0400 Body temperature 97.7 [degF] MD Jarrell Granados Work Phone: [facility] 01-06-2024 09:55-0400 Body weight 63.04 kg MD Jarrell Granados Work Phone: [facility] 01-06-2024 09:55-0400 Diastolic blood pressure 74 mm[Hg] MD Jarrell Granados Work Phone: [facility] 01-06-2024 09:55-0400 Heart rate 58 /min MD Jarrell Granados Work Phone: [facility] 01-06-2024 09:55-0400 Respiratory rate 16 /min MD Jarrell Granados Work Phone: [facility] 01-06-2024 09:55-0400 SaO2% (BldA) [Mass fraction] 99 % MD Jarrell Granados Work Phone: [facility] 01-06-2024 09:55-0400 Systolic blood pressure 133 mm[Hg] MD Jarrell Granados Work Phone: [facility] 09-28-2023 11:08-0500 Body height 162.56 cm MD Jarrell Granados Work Phone: [facility] 09-28-2023 11:08-0500 Body mass index (BMI) [Ratio] 23.6 kg/m2 MD Jarrell Granados Work Phone: [facility] 09-28-2023 11:08-0500 Body temperature 98.2 [degF] MD Jarrell Granados Work Phone: [facility] 09-28-2023 11:08-0500 Body weight 62.34 kg MD Jarrell Granados Work Phone: [facility] 09-28-2023 11:08-0500 Diastolic blood pressure 53 mm[Hg] MD Jarrell Granados Work Phone: [facility] 09-28-2023 11:08-0500 Heart rate 53 /min MD Jarrell Granados Work Phone: [facility] 09-28-2023 11:08-0500 Respiratory rate 20 /min MD Jarrell Granados Work Phone: [facility] 09-28-2023 11:08-0500 SaO2% (BldA) [Mass fraction] 100 % MD Jarrell Granados Work Phone: [facility] 09-28-2023 11:08-0500 Systolic blood pressure 126 mm[Hg] MD Jarrell Granados Work Phone: [facility] 09-18-2023 09:00-0500 Body height 162.56 cm Tamar [employer] Other [employer] Other 09-18-2023 09:00-0500 Body mass index (BMI) [Ratio] 24.54 kg/m2 [employer] Other [employer] Other 09-18-2023 09:00-0500 Body temperature 98 [degF] [employer] Other [employer] Other 09-18-2023 09:00-0500 Body weight 64.86 kg Tamar Hernandez Other [employer] Other 09-18-2023 09:00-0500 Respiratory rate 18 /min Tamar Hernandez Other [employer] Other 09-18-2023 09:00-0500 SaO2% (BldA) [Mass fraction] 98 % Tamar Hernandez Other [employer] Other 09-02-2023 09:00-0500 Diastolic blood pressure 48 mm[Hg] MD Jarrell Granados Work Phone: [facility] 09-02-2023 09:00-0500 Heart rate 56 /min MD Jarrell Granados Work Phone: [facility] 09-02-2023 09:00-0500 Respiratory rate 16 /min MD Jarrell Granados Work Phone: [facility] 09-02-2023 09:00-0500 SaO2% (BldA) [Mass fraction] 99 % MD Jarrell Granados Work Phone: [facility] 09-02-2023 09:00-0500 Systolic blood pressure 113 mm[Hg] MD Jarrell Granados Work Phone: [facility] 08-08-2023 11:30-0500 Body height 162.56 cm Criss [employer] Other [employer] Other 08-08-2023 11:30-0500 Body mass index (BMI) [Ratio] 24.03 kg/m2 [employer] Other [employer] Other 08-08-2023 11:30-0500 Body temperature 99 [degF] [employer] Other [employer] Other 08-08-2023 11:30-0500 Body weight 63.5 kg Criss En[employer] Other [employer] Other 08-08-2023 11:30-0500 Respiratory rate 20 /min Cr[employer] Other [employer] Other 08-08-2023 11:30-0500 SaO2% (BldA) [Mass fraction] 94 % [employer] Other [employer] Other 06-10-2023 09:25-0400 Body temperature 97.6 [degF] DO [employer] Work Phone: [facility] 06-10-2023 09:25-0400 Body weight 61.14 kg DO [employer] Work Phone: [facility] 06-10-2023 09:25-0400 Diastolic blood pressure 50 mm[Hg] DO [employer] Work Phone: [facility] 06-10-2023 09:25-0400 Heart rate 55 /min DO [employer] Work Phone: [facility] 06-10-2023 09:25-0400 Respiratory rate 16 /min DO [employer] Work Phone: [facility] 06-10-2023 09:25-0400 SaO2% (BldA) [Mass fraction] 99 % DO [employer] Work Phone: [facility] 06-10-2023 09:25-0400 Systolic blood pressure 124 mm[Hg] DO [employer] Work Phone: [facility] 03-10-2023 10:20-0400 Body temperature 97.5 [degF] DO [employer] Work Phone: [facility] 03-10-2023 10:20-0400 Body weight 68.03 kg DO [employer] Work Phone: [facility] 03-10-2023 10:20-0400 Diastolic blood pressure 53 mm[Hg] DO [employer] Work Phone: [facility] 03-10-2023 10:20-0400 Heart rate 56 /min DO [employer] Work Phone: [facility] 03-10-2023 10:20-0400 Respiratory rate 16 /min DO [employer] Work Phone: [facility] 03-10-2023 10:20-0400 SaO2% (BldA) [Mass fraction] 100 % DO [employer] Work Phone: [facility] 03-10-2023 10:20-0400 Systolic blood pressure 117 mm[Hg] DO [employer] Work Phone: [facility] 01-27-2023 13:49-0400 Body temperature 98.2 [degF] DO [employer] Work Phone: [facility] 01-27-2023 13:49-0400 Body weight 69.89 kg DO [employer] Work Phone: [facility] 01-27-2023 13:49-0400 Diastolic blood pressure 43 mm[Hg] DO [employer] Work Phone: [facility] 01-27-2023 13:49-0400 Heart rate 60 /min DO [employer] Work Phone: [facility] 01-27-2023 13:49-0400 Respiratory rate 20 /min DO [employer] Work Phone: [facility] 01-27-2023 13:49-0400 SaO2% (BldA) [Mass fraction] 99 % DO [employer] Work Phone: [facility] 01-27-2023 13:49-0400 Systolic blood pressure 104 mm[Hg] DO [employer] Work Phone: [facility] 11-27-2022 10:10-0400 Body temperature 97 [degF] DO [employer] Work Phone: [facility] 11-27-2022 10:10-0400 Body weight 73.02 kg DO [employer] Work Phone: [facility] 11-27-2022 10:10-0400 Diastolic blood pressure 52 mm[Hg] DO [employer] Work Phone: [facility] 11-27-2022 10:10-0400 Heart rate 61 /min DO [employer] Work Phone: [facility] 11-27-2022 10:10-0400 Respiratory rate 16 /min DO [employer] Work Phone: [facility] 11-27-2022 10:10-0400 SaO2% (BldA) [Mass fraction] 100 % DO [employer] Work Phone: [facility] 11-27-2022 10:10-0400 Systolic blood pressure 123 mm[Hg] DO [employer] Work Phone: [facility] 08-28-2022 10:33-0500 Body height 162.56 cm DO [employer] Work Phone: [facility] 06-19-2022 10:30-0400 Body height 162.56 cm Jarrell Granados Other [employer] Other 06-19-2022 10:30-0400 Body mass index (BMI) [Ratio] 27.46 kg/m2 Jarrell Granados Other [employer] Other 06-19-2022 10:30-0400 Body weight 72.58 kg Jarrell Granados Other [employer] Other 05-28-2022 11:14-0400 Body temperature 97.5 [degF] DO [employer] Work Phone: [facility] 05-28-2022 11:14-0400 Body weight 73.02 kg DO [employer] Work Phone: [facility] 05-28-2022 11:14-0400 Diastolic blood pressure 75 mm[Hg] DO [employer] Work Phone: [facility] 05-28-2022 11:14-0400 Heart rate 55 /min DO [employer] Work Phone: [facility] 05-28-2022 11:14-0400 Respiratory rate 16 /min DO [employer] Work Phone: [facility] 05-28-2022 11:14-0400 SaO2% (BldA) [Mass fraction] 98 % DO [employer] Work Phone: [facility] 05-28-2022 11:14-0400 Systolic blood pressure 147 mm[Hg] DO [employer] Work Phone: [facility] 04-23-2022 08:07-0400 Body temperature 97.8 [degF] DO [employer] Work Phone: [facility] 04-23-2022 08:07-0400 Body weight 74.84 kg DO [employer] Work Phone: [facility] 04-23-2022 08:07-0400 Diastolic blood pressure 75 mm[Hg] DO [employer] Work Phone: [facility] 04-23-2022 08:07-0400 Heart rate 60 /min DO [employer] Work Phone: [facility] 04-23-2022 08:07-0400 Respiratory rate 16 /min DO [employer] Work Phone: [facility] 04-23-2022 08:07-0400 SaO2% (BldA) [Mass fraction] 99 % DO [employer] Work Phone: [facility] 04-23-2022 08:07-0400 Systolic blood pressure 142 mm[Hg] DO [employer] Work Phone: [facility] 10-30-2021 13:04-0500 Body height 162.56 cm DO [employer] Work Phone: [facility] 10-23-2021 15:30-0500 Body height 162.56 cm Jarrell Ditty Other [employer] Other 10-23-2021 15:30-0500 Body mass index (BMI) [Ratio] 27.46 kg/m2 Jarrell Ditty Other [employer] Other 10-23-2021 15:30-0500 Body weight 72.58 kg Jarrell Ditty Other [employer] Other 09-04-2021 16:45-0500 Body height 162.56 cm Jarrell Ditty Other [employer] Other 09-04-2021 16:45-0500 Body mass index (BMI) [Ratio] 27.46 kg/m2 Jarrell Ditty Other [employer] Other 09-04-2021 16:45-0500 Body weight 72.58 kg Jarrell Ditty Other [employer] Other 09-04-2021 16:45-0500 Diastolic blood pressure 63 mm[Hg] Jarrell Ditty Other [employer] Other 09-04-2021 16:45-0500 Systolic blood pressure 129 mm[Hg] Jarrell Ditty Other [employer] Other Encounters Encounter Date Encounter Type Care Provider Facility Start: 04-12-2025 ambulatory Jayy Lomas Facility:[facility] Start: 01-01-2025 End: 01-01-2025 Bamboo flowsheet Jayy Lomas MD Work Phone: [facility] Start: 01-01-2025 End: 01-01-2025 Bamboo flowsheet Jayy Lomas MD Work Phone: [facility] Start: 01-01-2025 End: 01-01-2025 Office outpatient visit 15 minutes Jayy Lomas MD Work Phone: [facility] Comment on above: Paroxysmal atrial fi brillation (CMS/HCC) (Primary Dx); Allergic urticaria; Chronic kidney disease, stage 3b (HCC) (CMS/HCC); History of GI bleed; Angiodysplasia of small intestine, except duodenum with bleeding; Iron deficiency anemia secondary to blood loss (chronic) Start: 01-01-2025 End: 01-01-2025 ambulatory JAYY LOMAS Not Available Start: 12-18-2024 Registered Recurring Jarrell calloway MD Work Phone: [facility] Work Phone: Start: 12-18-2024 End: 12-18-2024 ambulatory Jarrell Granados MD Work Phone: [facility] Work Phone: Start: 12-18-2024 End: 12-18-2024 Patient encounter procedure Jarrell Granados MD Work Phone: [facility] Work Phone: Start: 10-26-2024 End: 10-26-2024 External Result Encounter Bell Camargo MD Work Phone: [facility] Unsolicited Start: 10-26-2024 End: 10-26-2024 External Result Encounter Bell Camargo MD Work Phone: [facility] External [facility] Unsolicited Start: 09-22-2024 End: 09-22-2024 Bamboo flowsheet Jayy Lomas MD Work Phone: [facility] Start: 09-22-2024 End: 09-22-2024 Bamboo flowsheet Jayy Lomas MD Work Phone: [facility] Start: 09-22-2024 End: 09-22-2024 Office outpatient visit 25 minutes Jayy Lomas MD Work Phone: [facility] Comment on above: Panlobular emphysema (CMS/HCC) (Primary Dx); Paroxysmal atrial fibrillation (CMS/HCC); Angiodysplasia of small intestine, except duodenum with bleeding; Chronic kidney disease, stage 3b (HCC) (CMS/HCC) Start: 09-22-2024 End: 09-22-2024 ambulatory JAYY LOMAS Not Available Start: 09-21-2024 End: 09-21-2024 ambulatory [facility] Start: 08-30-2024 End: 08-30-2024 Office outpatient visit 25 minutes Gay Kovacs ENTERTAINER OR VARIETY ARTIST Work Phone: [facility] Comment on above: Impacted cerumen of right ear (Primary Dx); Chronic kidney disease, stage 3b (HCC) (CMS/HCC) Start: 08-30-2024 End: 08-30-2024 ambulatory GAY KOVACS Not Available Start: 08-25-2024 End: 08-25-2024 Bamboo flowsheet Jayy Lomas MD Work Phone: [facility] Start: 08-25-2024 End: 08-25-2024 Bamboo flowsheet Jayy Lomas MD Work Phone: [facility] Start: 08-25-2024 End: 08-25-2024 Transitional care manage srvc 14 day discharge Jayy Lomas MD Work Phone: [facility] Comment on above: Panlobular emphysema (CMS/HCC) (Primary Dx); Paroxysmal atrial fibrillation (CMS/HCC); Angiodysplasia of small intestine, except duodenum with bleeding; History of GI bleed Start: 08-25-2024 End: 08-25-2024 ambulatory JAYY LOMAS Not Available Start: 08-18-2024 Evaluation and management of inpatient [facility] Start: 08-17-2024 Evaluation and management of inpatient GERALD LORENZO [facility] Start: 08-14-2024 Evaluation and management of inpatient [facility] Start: 08-14-2024 Evaluation and management of inpatient CARMEN ANDERSON [facility] Start: 08-13-2024 Evaluation and management of inpatient CARMEN ANDERSON [facility] Start: 08-13-2024 End: 08-19-2024 Evaluation and management of inpatient GREY FAIRBANKS [facility] Start: 08-07-2024 End: 08-07-2024 Bamboo flowsradha Lomas MD Work Phone: [facility] Start: 08-07-2024 End: 08-07-2024 Bamboo flowsradha Lomas MD Work Phone: [facility] Start: 08-07-2024 End: 08-07-2024 Office outpatient visit 25 minutes aJyy Lomas MD Work Phone: [facility] [...] Department Unsolicited Start: 07-03-2024 End: 07-03-2024 Bamboo og Lomas MD Work Phone: [facility] Start: 07-03-2024 End: 07-03-2024 Bamboo flowsradha Lomas MD Work Phone: [facility] [...] 05-11-2024 ambulatory MD Jarrell Granados Work Phone: [facility] Work Phone: Start: 05-11-2024 End: 05-11-2024 Patient encounter procedure MD Jarrell Granados Work Phone: [facility] Work Phone: Start: 05-11-2024 Registered Recurring MD Tanmay Granados Work Phone: [facility] Work Phone: Start: 05-08-2024 End: 05-08-2024 External Result Encounter Bell Camargo MD Work Phone: [facility] Unsolicited Start: 05-08-2024 End: 05-08-2024 External Result Encounter Bell Camargo MD Work Phone: [facility] External Department Unsolicited Start: 03-10-2024 End: 03-10-2024 ambulatory [facility] Start: 02-28-2024 End: 02-28-2024 ambulatory JAYY LOMAS Not Available Start: 01-24-2024 End: 01-24-2024 ambulatory JAYY LOMAS Not Available Start: 01-07-2024 End: 01-07-2024 ambulatory MD Jarrell Granados Work Phone: [facility] Work Phone: Start: 01-07-2024 End: 01-07-2024 Patient encounter procedure MD Jarrell Granados Work Phone: [facility] [place] Work Phone: Start: 01-06-2024 Registered Recurring MD Tanmay Granados Work Phone: [facility] Work Phone: Start: 01-06-2024 End: 01-06-2024 Patient encounter procedure MD Jarrell Granados Work Phone: [facility] Work Phone: Start: 10-14-2023 End: 10-14-2023 ambulatory [facility] Start: 09-28-2023 Registered Recurring MD Tanmay Granados Work Phone: [facility] Work Phone: Start: 09-28-2023 End: 09-28-2023 ambulatory MD Jarrell Granados Work Phone: [facility] Work Phone: Start: 09-28-2023 End: 09-28-2023 Patient encounter procedure MD Jarrell Granados Work Phone: [facility] Work Phone: Start: 09-26-2023 Tonie Reece MD Work Phone: [facility] Comment on above: Hypothyroidism, unsp ecified (CMS/HCC) Start: 09-18-2023 End: 09-18-2023 ambulatory Tamar Hernandez Other [employer] Other Start: 09-18-2023 Office outpatient visit 25 minutes Tamar Hernandez [facility] [place] Start: 08-08-2023 End: 08-08-2023 ambulatory Criss Nunez Other [employer] Other Start: 08-08-2023 Office outpatient visit 15 minutes Criss Enrique [facility] [place] Start: 08-08-2023 End: 08-08-2023 Patient encounter procedure MD Jarrell Granados Work Phone: [facility] [place] Work Phone: Start: 06-10-2023 End: 06-10-2023 ambulatory DO [facility] Work Phone: [facility] Work Phone: Start: 06-10-2023 End: 06-10-2023 Registered Recurring DO [facility] Work Phone: [facility] Work Phone: Start: 03-10-2023 End: 03-10-2023 ambulatory DO [facility] Work Phone: [facility] Work Phone: Start: 03-10-2023 End: 03-10-2023 Registered Recurring DO [facility] Work Phone: [facility] Work Phone: Start: 01-27-2023 End: 01-27-2023 ambulatory DO [facility] Work Phone: [facility] Work Phone: Start: 01-27-2023 End: 01-27-2023 Registered Recurring DO [facility] Work Phone: [facility] Work Phone: Start: 11-27-2022 End: 11-27-2022 ambulatory DO [facility] Work Phone: [facility] Work Phone: Start: 11-27-2022 End: 11-27-2022 Registered Recurring DO [facility] Work Phone: [facility] Work Phone: Start: 11-24-2022 End: 11-25-[address] CEASAR DUNN Facility:[facility]1 Start: 09-25-2022 End: 09-26-[address] CEASAR DUNN Facility:[facility]1 Start: 08-25-2022 End: 08-26-[address] BELL CAMARGO Facility:H1 Start: 08-19-2022 End: 08-19-[address] PAM MINOR Facility:[facility]1 Start: 07-02-2022 Rx Renewal [facility] Work Phone: [facility] 600 DO Work Phone: Start: 06-19-2022 End: 06-19-2022 ambulatory Jarrell Granados Other [facility] [employer] Other Start: 06-19-2022 Patient encounter procedure Jarrell Floressalinaalex [facility] Start: 06-03-2022 Rx Renewal [facility] Work Phone: [facility] 250 DO Work Phone: Start: 05-28-2022 End: 05-28-2022 ambulatory DO Ceasar Dunn Work Phone: [facility] Work Phone: Start: 05-28-2022 End: 05-28-2022 Registered Recurring DO Ceasar Dunn Work Phone: [facility] Start: 05-25-2022 End: 05-26-[address] BELL CAMARGO Facility:H1 Start: 04-23-2022 End: 04-23-2022 Registered Recurring DO Ceasar Dunn Work Phone: [facility] Start: 04-16-2022 End: 04-17-[address] [...] Facility:H1 Start: 11-12-2021 Patient encounter procedure Ceasar Genet Dunn Work Phone: [facility] 250 DO Work Phone: Start: 10-23-2021 End: 10-23-2021 ambulatory Jarrell Sandrasalinaalex Other [employer] Other Start: 10-23-2021 Patient encounter procedure Jarrell Sandrasalinaalex [facility] Start: 09-29-2021 End: 09-29-2021 ambulatory Jarrell Sandrasalinaalex Other [employer] Other Start: 09-29-2021 Telephone encounter Jarrell FLORES [facility] Start: 09-22-2021 End: 09-22-2021 ambulatory Jarrell Sandrasalinaalex Other [employer] Other Start: 09-22-2021 Telephone encounter Jarrell FLORES [facility] Start: 09-10-2021 End: 09-10-2021 ambulatory Alem Jimenez Other [employer] Other Start: 09-10-2021 Telephone encounter Alem Jimenez [facility] Start: 09-04-2021 End: 09-04-2021 ambulatory Jarrell Sandrasalinay Other [employer] Other Start: 09-04-2021 [facility] visit new patient Jarrell Sandrabaltazar [facility] Procedures Date Procedure Procedure Detail Performing Clinician Start: 10-26-2024 Complete blood count with white cell differential, automated Bell Camargo MD Work Phone: Start: 08-03-2024 Complete blood count with white cell differential, automated Bell Camargo MD Work Phone: Start: 07-03-2024 Urnls dip stick/tabl et rgnt non-auto w/o micrscp Jayy Lomas MD Work Phone: Start: 05-08-2024 Complete blood count with white cell differential, automated Bell Camargo MD Work Phone: Start: 04-30-2022 CT of abdomen and pe lvis without contrast DO [facility] Work Phone: Cataract surgery [facility] Work Phone: Cholecystectomy [facility] Work Phone: Colonoscopy [facility] Work Phone: Hysterectomy [facility] Work Phone: Tonsillectomy [facility] Work Phone: Plan of Treatment Date Care Activity Detail Author Start: 01-23-2025 Medicare Annual Wellness (AWV) Medicare Annual Wellness (AWV) [facility] Start: 01-01-2025 End: 01-01-2025 Patient encounter procedure 01/01/2025 9:45 AM EDT Office Visit [facility] [address] [facility] [address] [place] [id number] Jyay Lomas MD [address] [facility] [address] [place] [address] Arrived [facility] Comment on above: Arrived Start: 01-01-2025 End: 01-01-2025 Patient encounter procedure 01/01/2025 8:30 AM EDT Office Visit [facility] [address] [facility] [address] [place] [id number] Jayy Lomas MD [address] [facility] [address] [place] [address] [facility] Start: 12-18-2024 End: 12-18-2024 Patient encounter procedure 12/18/2024 9:30 AM EDT Office Visit [facility] [address] [place] [address] [place] [address] Jayy Lomas MD [address] [place] [address] [place] [address] [facility] Start: 12-08-2024 [facility] Start: 11-28-2024 [facility] Start: 09-28-2024 [facility] Start: 09-22-2024 End: 09-22-2024 Patient encounter procedure [facility] Comment on above: Arrived Start: 08-31-2024 [facility] Start: 08-30-2024 End: 08-31-2024 [facility] Start: 08-25-2024 End: 08-25-2025 Comprehensive metabolic 2000 panel - Serum or Plasma Comprehensive metabolic panel Lab Routine Paroxysmal atrial fibrillation (CMS/HCC) Angiodysplasia of small intestine, except duodenum with bleeding Expected: 08/25/2024 (Approximate), Expires: 08/25/2025 [facility] Comment on above: Expected: 08/25/2024 (Approximate), Expires: 08/25/2025 Start: 08-25-2024 End: 08-25-2024 Patient encounter procedure 08/25/2024 10:00 AM EST Office Visit [facility] [address] [place] [address] [place] [address] Jayy Lomas MD [address] [place] [address] [place] [address] Arrived [facility] Comment on above: Arrived Start: 08-11-2024 [facility] Start: 08-07-2024 End: 08-07-2024 Patient encounter procedure 08/07/2024 1:30 PM EST Office Visit [facility] [address] [place] [address] [place] [address] Jayy Lomas MD [address] [place] [address] [place] [address] Arrived [facility] Comment on above: Arrived Start: 07-03-2024 End: 07-03-2024 Patient encounter procedure [facility] Comment on above: Arrived Start: 05-03-2024 [facility] Start: 04-25-2024 [facility] Start: 04-23-2024 Influenza vaccination Influenza Vacc ine (#1) [facility] Start: 04-05-2024 [facility] Start: 01-24-2024 End: 01-24-2024 Patient encounter procedure 01/24/2024 9:15 AM EDT Office Visit [facility] [address] [facility] [address] [place] [address] Jayy Lomas MD [address] [facility] [address] [place] [address] [facility] Start: 10-13-2023 [facility] Start: 09-28-2023 [facility] Start: 09-02-2023 End: 09-02-2023 [facility] Start: 08-27-2023 End: 08-27-2023 [facility] Start: 07-29-2023 [facility] Start: 07-29-2023 [facility] Start: 07-19-2023 [facility] Start: 07-08-2023 [facility] Start: 07-01-2023 [facility] Start: 06-10-2023 [facility] Start: 06-03-2023 [facility] Start: 05-31-2023 [facility] Start: 05-26-2023 End: 05-26-2023 [facility] Start: 05-17-2023 [facility] Start: 05-06-2023 [facility] Start: 04-30-2023 [facility] Start: 04-28-2023 [facility] Start: 04-23-2023 [facility] Start: 04-19-2023 [facility] Start: 03-22-2023 [facility] Start: 03-16-2023 [facility] Start: 03-15-2023 [facility] Start: 03-11-2023 [facility] Start: 03-10-2023 [facility] Start: 02-22-2023 [facility] Start: 02-19-2023 [facility] Start: 02-12-2023 [facility] Start: 02-10-2023 [facility] Start: 02-02-2023 [facility] Start: 01-22-2023 End: 01-22-2023 [facility] Start: 12-14-2022 [facility] Start: 12-07-2022 [facility] Start: 10-23-2022 [facility] Start: 09-08-2022 [facility] Start: 09-01-2022 [facility] Start: 08-20-2022 [facility] Start: 05-20-2022 [facility] Start: 05-08-2022 [facility] Start: 05-01-2022 [facility] Start: 05-01-2022 [facility] Start: 03-18-2022 End: 03-19-2022 [facility] Start: 03-11-2022 [facility] Start: 02-27-2022 [facility] Start: 08-11-2015 Pneumococcal Vaccine : 65+ Years (2 - PPSV23 or PCV20) Pneumococcal Vaccine: 65+ Years (2 - PPSV23 or PCV20) [facility] Start: 08-11-2015 Pneumococcal Vaccine : 65+ Years (2 of 2 - PPSV23 or PCV20) Pneumococcal Vaccine: 65+ Years (2 of 2 - PPSV23 or PCV20) [facility] Start: 08-11-2015 Pneumococcal Vaccine : 65+ Years (2 of 2 - PPSV23) Pneumococcal Vaccine: 65+ Years (2 of 2 - PPSV23) [facility] Start: 1945 Medicare Annual Wellness (AWV) Medicare Annual Wellness (AWV) [facility] CBC W Auto Different ial panel - Blood CBC and differential Lab Routine Angiodysplasia of small intestine, except duodenum with bleeding History of GI bleed Ordered: 08/25/2024 [facility] Work Phone: Comment on above: Ordered: 08/25/2024 Comprehensive metabo lic 1999 panel - Serum or Plasma [facility] Work Phone: Comprehensive metabo lic 1999 panel - Serum or Plasma [facility] Comprehensive metabo lic 1999 panel - Serum or Plasma [facility] Comprehensive metabo lic 1999 panel - Serum or Plasma [facility] Comprehensive metabo lic 1999 panel - Serum or Plasma [facility] Comprehensive metabo lic 1999 panel - Serum or Plasma [facility] Comprehensive metabo lic 1999 panel - Serum or Plasma [facility] Comprehensive metabo lic 1999 panel - Serum or Plasma [facility] Comprehensive metabo lic 1999 panel - Serum or Plasma Comprehensive metabolic panel Lab Routine 05/08/2024 10:56 AM EDT [employer] Work Phone: Comprehensive metabo lic 1999 panel - Serum or Plasma Comprehensive metabolic panel Lab Routine 08/03/2024 1:25 PM EST [employer] Work Phone: Comprehensive metabo lic 1999 panel - Serum or Plasma Comprehensive metabolic panel Lab Routine 10/26/2024 10:09 AM EST [employer] Work Phone: CT Abdomen and Pelvi s W contrast IV [facility] Work Phone: Ferritin [Mass/volum e] in Serum or Plasma [facility] Work Phone: Ferritin [Mass/volum e] in Serum or Plasma [facility] Ferritin [Mass/volum e] in Serum or Plasma [facility] Ferritin [Mass/volum e] in Serum or Plasma [facility] Ferritin [Mass/volum e] in Serum or Plasma [facility] Ferritin [Mass/volum e] in Serum or Plasma [facility] Ferritin [Mass/volum e] in Serum or Plasma [facility] Ferritin [Mass/volum e] in Serum or Plasma [facility] Ferritin [Mass/volum e] in Serum or Plasma [facility] Folate [Mass/volume] in Serum or Plasma [facility] Homocysteine [Moles/volume] in Serum or Plasma [facility] Homocysteine [Moles/volume] in Serum or Plasma [facility] Iron and Iron bindin g capacity panel - Serum or Plasma Iron and TIBC Lab Routine 05/08/2024 10:56 AM EDT [facility] Iron and Iron bindin g capacity panel - Serum or Plasma Iron and TIBC Lab Routine 10/26/2024 10:09 AM EST [facility] Vitamin B12 measurement [facility] Immunizations Immunization Date Immunization Notes Care Provider [facility] 07-03-2024 Influenza, High-dose Seasonal, Quadrivalent, Preservative Free Jayy Lomas MD Work Phone: [facility] 06-11-2023 Influenza, Seasonal, Quadrivalent, Adjuvanted Shaikh Chevy LUBIN Work Phone: [facility] 06-11-2023 RSV, recombinant, protein subunit RSVpreF, adjuvant reconstitu, 120mcg/0.5mL, PF (Arexvy) Shaikh Chevy LUBIN Work Phone: [facility] 06-11-2023 influenza virus vaccine, unspecified formulation Bell Camargo MD Work Phone: [facility] 06-18-2022 Influenza, Seasonal, Quadrivalent, Adjuvanted Shaikh Chevy LUBIN Work Phone: [facility] 06-21-2021 influenza, high dose seasonal, preservative-free Ce[facility] Work Phone: [facility] [employer] [address] DO Work Phone: 05-27-2020 Fluad Quadrivalent 0 .5 ML Intramuscular Prefilled Syringe Ceasar P [place] Work Phone: [facility] 250 DO Work Phone: 05-23-2020 influenza, seasonal, injectable [facility] Work Phone: [place] [address] DO Work Phone: 07-26-2019 Seasonal trivalent influenza vaccine, adjuvanted, preservative free [facility] Work Phone: [place] [address] DO Work Phone: 06-23-2019 influenza, high dose seasonal, preservative-free [facility] Work Phone: [place] [address] DO Work Phone: 05-23-2018 influenza virus vaccine, unspecified formulation [facility] Work Phone: [place] [address] DO Work Phone: 05-09-2018 Seasonal trivalent influenza vaccine, adjuvanted, preservative free [facility] Work Phone: [place] [address] DO Work Phone: 05-02-2017 Seasonal trivalent influenza vaccine, adjuvanted, preservative free [facility] Work Phone: [place] [address] DO Work Phone: 06-14-2016 pneumococcal conjuga te vaccine, 13 valent Ceasar P [place] Work Phone: [place] [address] DO Work Phone: 06-16-2015 influenza, high dose seasonal, preservative-free [facility] Work Phone: [place] [address] DO Work Phone: 06-16-2015 pneumococcal conjuga te vaccine, 13 valent [facility] Work Phone: [place] [address] DO Work Phone: Payers Date Payer Category Payer Self-pay [id number] 2022 Private Health Insurance [employer] E [id number] 2022 Unknown 2021 Unknown [id number] 2011 Medicare [id number] 1959 Medicare [id number] [id number] 1959 Unknown [id number] 1946 Unknown [id number] 2.16.840.1.407435.3.579.2 .593 1946 Unknown [id number] 2.16.840.1.216224.3.579.2 .593 1946 Unknown [id number] 2.16.840.1.512915.3.579.2 .593 1946 Unknown [id number] 2.16.840.1.125676.3.579.2 .593 1946 Unknown [id number] 2.16.840.1.159285.3.579.2 .593 1946 Unknown [id number] 2.16.840.1.716533.3.579.2 .593 1946 Unknown [id number] 2.16.840.1.182198.3.579.2 .593 1946 Unknown [id number] 2.16.840.1.204597.3.579.2 .593 1946 Unknown [id number] 2.16.840.1.647812.3.579.2 .593 1946 Unknown [id number] 2.16.840.1.560900.3.579.2 .593 1946 Unknown [id number] 2.16840.1.758846.3.579.2 .593 1946 Unknown [id number] 2.16840.1.289375.3.579.2 .593 1946 Unknown [id number] 2.840.1.831121.3.579.2 .125 1946 Unknown [id number] 2.840.1.529101.3.579.2 .1259 1946 Unknown [id number] 2.0.1.811060.3.579.2 .1259 1946 Unknown [id number] 2.840.1.257351.3.579.2 .1259 1946 Unknown [id number] 2.840.1.693338.3.579.2 .1259 1946 Unknown [id number] 2.840.1.212235.3.579.2 .1259 1946 Unknown [id number] 2.840.1.380898.3.579.2 .125 1946 Unknown [id number] .840.1.415176.3.579.2 .1259 Medicare Roberts MCR PFFS [id number] Unknown [id number] [id number] Unknown [id number] 2.840.1.182537.19 Unknown [id number] 2.840.1.658746.3.579.2 .531 Social History Date Type Detail Facility Start: 09-23-2023 End: 01-01-2025 Sex Assigned At [facility] Start: 04-23-2022 End: 08-25-2024 Tobacco smoking status NMIS Ex-smoker (finding) [facility] Start: 1945 Sex Assigned At Female F [facility] Start: 07-30-2023 End: 01-01-2025 Caffeine use Caffeine use [facility] Start: 07-30-2023 [facility] Start: 08-23-1965 History of tobacco use Cigarette Smo ker [facility] Start: 1945 Sex Assigned At Not on file N [facility] Start: 01-06-2024 Tobacco smoking stat [facility] Current some day smoker [facility] Start: 08-23-1965 History of tobacco use Current smoke r [facility] Start: 08-30-2024 End: 01-01-2025 Alcoholic beverage intake Defer [facility] Start: 12-18-2024 Sex Female (finding) [facility] Medical Equipment Procedure Code Equipment Code Equipment Origin al Text Equipment Identifier Dates Capsule endoscopy, for patency of lumen evaluation Video capsule endoscopy system [id number] [facility] Start: 10-15-2021 Goals Date Patient Goal Desired Activity /State Functional Status Date Assessment Result Facility 01-01-2025 Patient Health Quest ionnaire 2 item (PHQ-2) [Reported] [facility] Clinical Notes 09-04-2021 to 01-01-2025 Jayy Lomas MD - 01/01/2025 9:45 AM Emilee Lomas MD - 09/22/2024 9:30 AM Torri Kovacs NP - 08/30/2024 2:00 PM ESTPatient InstructionsJayy Lomas MD - 08/25/2024 10:00 AM EST Note Date & Type Note Facility 01-01-2025 History of Present illness Narrative Images from the original note were not included. HPI Med Refill Additional comments: Toñito--MALENA campo Last edited by [place] Ortiz LPN on 01/01/2025 9:53 AM. Subjective Patient ID: Terri Newton is a 79 y.o. female who presents for COPD, Hypertension, and Med Refill (Zyrtec--DM elroy). Hypertension Patient is here for follow-up of elevated blood pressure. Blood pressure is well controlled at home. Cardiac symptoms: none. Patient denies chest pain, claudication, irregular heart beat, lower extremity edema, near-syncope, orthopnea, palpitations, and paroxysmal nocturnal dyspnea. Cardiovascular risk factors: advanced age (older than 55 for men, 65 for women) and hypertension Hypertension Med Refill Associated symptoms include a rash. Atrial Fibrillation Past medical history includes atrial fibrillation. UTI Rash Current Outpatient Medications on File Prior to Visit Medication Sig Dispense Refill albuterol (2.5 MG/3ML) 0.083% nebulizer solution Take 2.5 mg by nebulization every 4 (four) hours if needed albuterol HFA 90 mcg/act inhaler Inhale 2 puffs every 4 (four) hours if needed amLODIPine (Norvasc) 10 MG tablet Take 5 mg by mouth Daily benzonatate (Tessalon Perles) 100 MG capsule Take 1 capsule (100 mg) by mouth 3 (three) times a day as needed for cough Do not crush or chew. 30 capsule 1 Fluticasone-Salmeterol 250-50 MCG/ACT aerosol powder Inhale 1 puff Daily 1 each 11 furosemide (Lasix) 20 MG tablet Take 20 mg by mouth every other day levothyroxine (Synthroid, Levoxyl) 112 MCG tablet Take 1 tablet (112 mcg) by mouth in the morning. 100 tablet 3 propafenone (Rythmol) 150 MG tablet Take 150 mg by mouth in the morning and 150 mg before bedtime. Morning and bedtime. [DISCONTINUED] cetirizine (ZyrTEC) 10 MG tablet Take 1 tablet (10 mg) by mouth Daily 30 tablet 11 No current facility-administered medications on file prior to visit. I have reviewed and reconciled the history and medication list with the patient today. No Known Allergies Social History Tobacco Use Smoking status: Former Average packs/day: 1 pack/day for 59.0 years (59.0 ttl pk-yrs) Types: Cigarettes Start date: 1965 Vaping Use Vaping status: Unknown Substance Use Topics Alcohol use: Defer Drug use: Defer Family History Problem Relation Name Age of [...] TOTAL VAGINAL HYSTERECTOMY 2009 Visit Vitals BP 122/70 Pulse 52 Ht 5' 4 Wt 147 lb SpO2 93% BMI 25.23 kg/m Smoking Status Former BSA 1.74 m Review of Systems Skin: Positive for rash. Objective Physical Exam Constitutional: General: She is not in acute distress. Cardiovascular: Rate and Rhythm: Normal rate and regular rhythm. Heart sounds: Murmur heard. Decrescendo systolic murmur is present with a grade of 2/6. Pulmonary: Effort: No accessory muscle usage, prolonged expiration or respiratory distress. Breath sounds: No decreased air movement. Musculoskeletal: Right lower leg: Edema present. Left lower leg: Edema present. Neurological: Mental Status: She is alert. Psychiatric: Mood and Affect: Mood normal. Thought Content: Thought content normal. Judgment: Judgment normal. External Result Encounter on 10/26/2024 Component Date Value Ref Range Status Glucose 10/26/2024 152 (H) 70 - 100 mg/dL Final Comment: Random Glucose Reference Range is dependent on time and content of last meal. Glucose of more than 200 mg/dL in a nonstressed, ambulatory subject supports the diagnosis of Diabetes Mellitus. ADA recommended reference range BUN 10/26/2024 38 (H) 7 - 25 mg/dL Final CREATININE 10/26/2024 1.33 (H) 0.60 - 1.20 mg/dL Final ESTIMATED GFR 10/26/2024 40.953 mL/Min Final Sodium 10/26/2024 139 136 - 145 mmol/L Final Potassium, Bld 10/26/2024 4.7 3.5 - 5.1 mmol/L Final Chloride 10/26/2024 104 98 - 107 mmol/L Final Carbon Dioxide 10/26/2024 30.0 21.0 - 31.0 mmol/L Final Anion Gap 10/26/2024 9.7 6.0 - 15.0 meq/L Final Calcium 10/26/2024 8.9 8.6 - 10.3 mg/dL Final TOTAL PROTEIN 10/26/2024 6.7 6.4 - 8.9 g/dL Final ALBUMIN LEVEL 10/26/2024 4.0 3.5 - 5.7 g/dL Final GLOBULIN 10/26/2024 2.7 g/dL Final ALBUMIN/GLOBULIN RATIO 10/26/2024 1.5 Final BILIRUBIN,TOTAL 10/26/2024 0.2 (L) 0.3 - 1.0 mg/dL Final ASPARTATE AMINO TRANSFERASE 10/26/2024 19 13 - 39 U/L Final ALANINE AMINOTRANSFERASE 10/26/2024 15 7 - 52 U/L Final ALKALINE PHOSPHATASE 10/26/2024 90 34 - 104 U/L Final CREATININE CLR CALC PHARMACY 10/26/2024 30.10 Final IRON 10/26/2024 52 50 - 212 ug/dL Final TOTAL IRON BINDING CAPACITY 10/26/2024 321 255 - 450 ug/dL Final % IRON SATURATION 10/26/2024 16.2 (L) 20 - 50 % Final TRANSFERRIN 10/26/2024 229 203 - 362 mg/dL Final FERRITIN 10/26/2024 156.0 11.0 - 306.8 ng/mL Final External Result Encounter on 10/26/2024 Component Date Value Ref Range Status WBC 10/26/2024 4.7 3.8 - 11.6 10*3/uL Final UNCORRECTED WHITE BLOOD COUNT 10/26/2024 4.7 3.8 - 11.6 10*3/uL Final RBC 10/26/2024 3.61 3.60 - 5.00 10*6/uL Final HEMOGLOBIN 10/26/2024 11.3 (L) 11.8 - 15.4 g/dL Final HEMATOCRIT 10/26/2024 33.8 (L) 34.0 - 46.4 % Final MCV 10/26/2024 93.6 80 - 100 fL Final MCH 10/26/2024 31.3 24.7 - 34.3 pg Final MCHC 10/26/2024 33.4 32.0 - 35.0 g/dL Final RED CELL DISTRIBUTION WIDTH, RDW 10/26/2024 18.0 (H) 11.9 - 15.3 % Final PLATELET COUNT 10/26/2024 272 150 - 450 10*3/uL Final MEAN PLATELET VOLUME, MPV 10/26/2024 8.1 6.3 - 10.7 fL Final NEUTROPHILS, % 10/26/2024 56.9 . % Final LYMPHOCYTES, % 10/26/2024 24.7 . % Final MONOCYTE/MACROPHAGE, % 10/26/2024 9.1 . % Final EOSINOPHILS, % 10/26/2024 7.6 . % Final BASOPHILS, % 10/26/2024 1.7 . % Final NRBC 10/26/2024 0.1 0 - 0.5 /100[WBC] Final NEUTROPHILS 10/26/2024 2.7 1.8 - 7.7 10*3/uL Final LYMPHOCYTES 10/26/2024 1.2 1.00 - 4.8 10*3/uL Final MONOCYTES 10/26/2024 0.4 0.0 - 0.8 10*3/uL Final EOSINOPHILS 10/26/2024 0.4 0.0 - 0.45 10*3/uL Final BASOPHILS 10/26/2024 0.1 0.0 - 0.2 10*3/uL Final Office Visit on 08/25/2024 Component Date Value Ref Range Status WHITE BLOOD CELL COUNT 08/25/2024 8.8 3.8 - 10.8 Thousand/uL Final RED BLOOD CELL COUNT 08/25/2024 2.84 (L) 3.80 - 5.10 Million/uL Final HEMOGLOBIN 08/25/2024 8.3 (L) 11.7 - 15.5 g/dL Final HEMATOCRIT 08/25/2024 25.6 (L) 35.0 - 45.0 % Final MCV 08/25/2024 90.1 80.0 - 100.0 fL Final MCH 08/25/2024 29.2 27.0 - 33.0 pg Final MCHC 08/25/2024 32.4 32.0 - 36.0 g/dL Final Comment: For adults, a slight decrease in the calculated MCHC value (in the range of 30 to 32 g/dL) is most likely not clinically significant; however, it should be interpreted with caution in correlation with other red cell parameters and the patient's clinical condition. RDW 08/25/2024 15.7 (H) 11.0 - 15.0 % Final PLATELET COUNT 08/25/2024 315 140 - 400 Thousand/uL Final MPV 08/25/2024 11.4 7.5 - 12.5 fL Final ABSOLUTE NEUTROPHILS 08/25/2024 7,313 1,500 - 7,800 cells/uL Final ABSOLUTE LYMPHOCYTES 08/25/2024 722 (L) 850 - 3,900 cells/uL Final ABSOLUTE MONOCYTES 08/25/2024 651 200 - 950 cells/uL Final ABSOLUTE EOSINOPHILS 08/25/2024 88 15 - 500 cells/uL Final ABSOLUTE BASOPHILS 08/25/2024 26 0 - 200 cells/uL Final NEUTROPHILS 08/25/2024 83.1 % Final LYMPHOCYTES 08/25/2024 8.2 % Final MONOCYTES 08/25/2024 7.4 % Final EOSINOPHILS 08/25/2024 1.0 % Final BASOPHILS 08/25/2024 0.3 % Final Glucose 08/25/2024 112 65 - 139 mg/dL Final Comment: Non-fasting reference interval For someone without known diabetes, a glucose value between 100 and 125 mg/dL is consistent with prediabetes and should be confirmed with a follow-up test. BUN 08/25/2024 27 (H) 7 - 25 mg/dL Final Creatinine 08/25/2024 1.51 (H) 0.60 - 1.00 mg/dL Final EGFR 08/25/2024 35 (L) > OR = 60 mL/min/1.73m2 Final BUN/CREATININE RATIO 08/25/2024 18 6 - 22 (calc) Final Sodium 08/25/2024 138 135 - 146 mmol/L Final Potassium, Bld 08/25/2024 4.5 3.5 - 5.3 mmol/L Final Chloride 08/25/2024 104 98 - 110 mmol/L Final Carbon Dioxide 08/25/2024 28 20 - 32 mmol/L Final Calcium 08/25/2024 8.3 (L) 8.6 - 10.4 mg/dL Final PROTEIN, TOTAL 08/25/2024 6.2 6.1 - 8.1 g/dL Final ALBUMIN 08/25/2024 3.3 (L) 3.6 - 5.1 g/dL Final GLOBULIN 08/25/2024 2.9 1.9 - 3.7 g/dL (calc) Final ALBUMIN/GLOBULIN RATIO 08/25/2024 1.1 1.0 - 2.5 (calc) Final BILIRUBIN, TOTAL 08/25/2024 0.3 0.2 - 1.2 mg/dL Final ALKALINE PHOSPHATASE 08/25/2024 74 37 - 153 U/L Final AST 08/25/2024 9 (L) 10 - 35 U/L Final ALT 08/25/2024 9 6 - 29 U/L Final External Result Encounter on 08/03/2024 Component Date Value Ref Range Status Glucose 08/03/2024 103 (H) 70 - 100 mg/dL Final Comment: Random Glucose Reference Range is dependent on time and content of last meal. Glucose of more than 200 mg/dL in a nonstressed, ambulatory subject supports the diagnosis of Diabetes Mellitus. ADA recommended reference range BUN 08/03/2024 37 (H) 7 - 25 mg/dL Final CREATININE 08/03/2024 1.48 (H) 0.60 - 1.20 mg/dL Final ESTIMATED GFR 08/03/2024 36.024 mL/Min Final Sodium 08/03/2024 138 136 - 145 mmol/L Final Potassium, Bld 08/03/2024 5.0 3.5 - 5.1 mmol/L Final Chloride 08/03/2024 102 98 - 107 mmol/L Final Carbon Dioxide 08/03/2024 28.9 21.0 - 31.0 mmol/L Final Anion Gap 08/03/2024 12.1 6.0 - 15.0 meq/L Final Calcium 08/03/2024 8.7 8.6 - 10.3 mg/dL Final TOTAL PROTEIN 08/03/2024 6.7 6.4 - 8.9 g/dL Final ALBUMIN LEVEL 08/03/2024 3.9 3.5 - 5.7 g/dL Final GLOBULIN 08/03/2024 2.8 g/dL Final ALBUMIN/GLOBULIN RATIO 08/03/2024 1.4 Final BILIRUBIN,TOTAL 08/03/2024 0.3 0.3 - 1.0 mg/dL Final ASPARTATE AMINO TRANSFERASE 08/03/2024 14 13 - 39 U/L Final ALANINE AMINOTRANSFERASE 08/03/2024 13 7 - 52 U/L Final ALKALINE PHOSPHATASE 08/03/2024 80 34 - 104 U/L Final CREATININE CLR CALC PHARMACY 08/03/2024 27.05 Final FERRITIN 08/03/2024 57.6 11.0 - 306.8 ng/mL Final IRON 08/03/2024 <10 (L) 50 - 212 ug/dL Final TOTAL IRON BINDING CAPACITY 08/03/2024 332 255 - 450 ug/dL Final % IRON SATURATION 08/03/2024 Test not performed 20 - 50 Final TRANSFERRIN 08/03/2024 237 203 - 362 mg/dL Final External Result Encounter on 08/03/2024 Component Date Value Ref Range Status WBC 08/03/2024 6.0 3.8 - 11.6 10*3/uL Final UNCORRECTED WHITE BLOOD COUNT 08/03/2024 6.0 3.8 - 11.6 10*3/uL Final RBC 08/03/2024 2.88 (L) 3.60 - 5.00 10*6/uL Final HEMOGLOBIN 08/03/2024 8.3 (L) 11.8 - 15.4 g/dL Final HEMATOCRIT 08/03/2024 25.5 (L) 34.0 - 46.4 % Final MCV 08/03/2024 88.4 80 - 100 fL Final MCH 08/03/2024 28.7 24.7 - 34.3 pg Final MCHC 08/03/2024 32.5 32.0 - 35.0 g/dL Final RED CELL DISTRIBUTION WIDTH, RDW 08/03/2024 16.3 (H) 11.9 - 15.3 % Final PLATELET COUNT 08/03/2024 427 150 - 450 10*3/uL Final MEAN PLATELET VOLUME, MPV 08/03/2024 7.4 6.3 - 10.7 fL Final NEUTROPHILS, % 08/03/2024 62.3 . % Final LYMPHOCYTES, % 08/03/2024 20.7 . % Final MONOCYTE/MACROPHAGE, % 08/03/2024 9.6 . % Final EOSINOPHILS, % 08/03/2024 6.2 . % Final BASOPHILS, % 08/03/2024 1.2 . % Final NRBC 08/03/2024 0.0 0 - 0.5 /100[WBC] Final NEUTROPHILS 08/03/2024 3.7 1.8 - 7.7 10*3/uL Final LYMPHOCYTES 08/03/2024 1.2 1.00 - 4.8 10*3/uL Final MONOCYTES 08/03/2024 0.6 0.0 - 0.8 10*3/uL Final EOSINOPHILS 08/03/2024 0.4 0.0 - 0.45 10*3/uL Final BASOPHILS 08/03/2024 0.1 0.0 - 0.2 10*3/uL Final Assessment/Plan Diagnoses and all orders for this visit: Paroxysmal atrial fibrillation (CMS/HCC) Allergic urticaria - cetirizine (ZyrTEC) 10 MG tablet; Take 1 tablet (10 mg) by mouth Daily Chronic kidney disease, stage 3b (HCC) (CMS/HCC) History of GI bleed Angiodysplasia of small intestine, except duodenum with bleeding Iron deficiency anemia secondary to blood loss (chronic) - Gets periodic iron Infusions from Hematology. Follow up in about 4 months (around 05/04/2025) for Routine F/U. documented in this encounter [facility] 09-22-2024 History of Present illness Narrative Images from the original note were not included. HPI Results Additional comments: Labs -CMP and CBC Last edited by Cheyenne Ortiz LPN on 09/22/2024 9:30 AM. Subjective Patient ID: Terri Newton is a 79 y.o. female who presents for Atrial Fibrillation, Hypertension, and Results (Labs -CMP and CBC). Hypertension Patient is here for follow-up of elevated blood pressure. Blood pressure is well controlled at home. Cardiac symptoms: none. Patient denies chest pain, claudication, irregular heart beat, lower extremity edema, near-syncope, orthopnea, palpitations, and paroxysmal nocturnal dyspnea. Cardiovascular risk factors: advanced age (older than 55 for men, 65 for women) and hypertension Atrial Fibrillation Past medical history includes atrial fibrillation. Hypertension UTI Rash Current Outpatient Medications on File Prior to Visit Medication Sig Dispense Refill albuterol (2.5 MG/3ML) 0.083% nebulizer solution Take 2.5 mg by nebulization every 4 (four) hours if needed albuterol HFA 90 mcg/act inhaler Inhale 2 puffs every 4 (four) hours if needed amLODIPine (Norvasc) 10 MG tablet Take 5 mg by mouth Daily benzonatate (Tessalon Perles) 100 MG capsule Take 1 capsule (100 mg) by mouth 3 (three) times a day as needed for cough Do not crush or chew. 30 capsule 1 cetirizine (ZyrTEC) 10 MG tablet Take 1 tablet (10 mg) by mouth Daily 30 tablet 11 Fluticasone-Salmeterol 250-50 MCG/ACT aerosol powder Inhale 1 puff Daily 1 each 11 furosemide (Lasix) 20 MG tablet Take 20 mg by mouth every other day levothyroxine (Synthroid, Levoxyl) 112 MCG tablet TAKE 1 TABLET BY MOUTH IN THE MORNING 90 tablet 1 pantoprazole (ProtoNix) 40 MG EC tablet Take 40 mg by mouth in the morning and 40 mg in the evening. Take before meals. propafenone (Rythmol) 150 MG tablet Take 150 mg by mouth in the morning and 150 mg before bedtime. Morning and bedtime. No current facility-administered medications on file prior to visit. I have reviewed and reconciled the history and medication list with the patient today. No Known Allergies Social History Tobacco Use Smoking status: Former Average packs/day: 1 pack/day for 59.0 years (59.0 ttl pk-yrs) Types: Cigarettes Start date: 1965 Vaping Use Vaping status: Unknown Substance Use Topics Alcohol use: Defer Drug use: Defer Family History Problem Relation Name Age of [...] is a f/u to ensure improvement/resolution Hypertension ([facility]) at goal Hypotension Reports dizziness, feeling weak [...] Nephrolithiasis TOTAL VAGINAL HYSTERECTOMY 2008 Visit Vitals BP 132/60 Pulse 62 Ht 5' 4 Wt 137 lb SpO2 97% BMI 23.52 kg/m Smoking Status Former BSA 1.67 m Review of Systems Skin: Positive for rash. Objective Physical Exam Constitutional: General: She is not in acute distress. Cardiovascular: Rate and Rhythm: Normal rate and regular rhythm. Heart sounds: Murmur heard. Decrescendo systolic murmur is present with a grade of 2/6. Pulmonary: Effort: No accessory muscle usage, prolonged expiration or respiratory distress. Breath sounds: No decreased air movement. Musculoskeletal: Right lower leg: Edema present. Left lower leg: Edema present. Neurological: Mental Status: She is alert. Psychiatric: Mood and Affect: Mood normal. Thought Content: Thought content normal. Judgment: Judgment normal. Office Visit on 08/25/2024 Component Date Value Ref Range Status WHITE BLOOD CELL COUNT 08/25/2024 8.8 3.8 - 10.8 Thousand/uL Final RED BLOOD CELL COUNT 08/25/2024 2.84 (L) 3.80 - 5.10 Million/uL Final HEMOGLOBIN 08/25/2024 8.3 (L) 11.7 - 15.5 g/dL Final HEMATOCRIT 08/25/2024 25.6 (L) 35.0 - 45.0 % Final MCV 08/25/2024 90.1 80.0 - 100.0 fL Final MCH 08/25/2024 29.2 27.0 - 33.0 pg Final MCHC 08/25/2024 32.4 32.0 - 36.0 g/dL Final Comment: For adults, a slight decrease in the calculated MCHC value (in the range of 30 to 32 g/dL) is most likely not clinically significant; however, it should be interpreted with caution in correlation with other red cell parameters and the patient's clinical condition. RDW 08/25/2024 15.7 (H) 11.0 - 15.0 % Final PLATELET COUNT 08/25/2024 315 140 - 400 Thousand/uL Final MPV 08/25/2024 11.4 7.5 - 12.5 fL Final ABSOLUTE NEUTROPHILS 08/25/2024 7,313 1,500 - 7,800 cells/uL Final ABSOLUTE LYMPHOCYTES 08/25/2024 722 (L) 850 - 3,900 cells/uL Final ABSOLUTE MONOCYTES 08/25/2024 651 200 - 950 cells/uL Final ABSOLUTE EOSINOPHILS 08/25/2024 88 15 - 500 cells/uL Final ABSOLUTE BASOPHILS 08/25/2024 26 0 - 200 cells/uL Final NEUTROPHILS 08/25/2024 83.1 % Final LYMPHOCYTES 08/25/2024 8.2 % Final MONOCYTES 08/25/2024 7.4 % Final EOSINOPHILS 08/25/2024 1.0 % Final BASOPHILS 08/25/2024 0.3 % Final Glucose 08/25/2024 112 65 - 139 mg/dL Final Comment: Non-fasting reference interval For someone without known diabetes, a glucose value between 100 and 125 mg/dL is consistent with prediabetes and should be confirmed with a follow-up test. BUN 08/25/2024 27 (H) 7 - 25 mg/dL Final Creatinine 08/25/2024 1.51 (H) 0.60 - 1.00 mg/dL Final EGFR 08/25/2024 35 (L) > OR = 60 mL/min/1.73m2 Final BUN/CREATININE RATIO 08/25/2024 18 6 - 22 (calc) Final Sodium 08/25/2024 138 135 - 146 mmol/L Final Potassium, Bld 08/25/2024 4.5 3.5 - 5.3 mmol/L Final Chloride 08/25/2024 104 98 - 110 mmol/L Final Carbon Dioxide 08/25/2024 28 20 - 32 mmol/L Final Calcium 08/25/2024 8.3 (L) 8.6 - 10.4 mg/dL Final PROTEIN, TOTAL 08/25/2024 6.2 6.1 - 8.1 g/dL Final ALBUMIN 08/25/2024 3.3 (L) 3.6 - 5.1 g/dL Final GLOBULIN 08/25/2024 2.9 1.9 - 3.7 g/dL (calc) Final ALBUMIN/GLOBULIN RATIO 08/25/2024 1.1 1.0 - 2.5 (calc) Final BILIRUBIN, TOTAL 08/25/2024 0.3 0.2 - 1.2 mg/dL Final ALKALINE PHOSPHATASE 08/25/2024 74 37 - 153 U/L Final AST 08/25/2024 9 (L) 10 - 35 U/L Final ALT 08/25/2024 9 6 - 29 U/L Final Assessment/Plan Diagnoses and all orders for this visit: Panlobular emphysema (CMS/HCC) - This is a chronic medical condition that is stable since last assessment. No changes in treatment are suggested at this time. Paroxysmal atrial fibrillation (CMS/HCC) - rate controlled Angiodysplasia of small intestine, except duodenum with bleeding Chronic kidney disease, stage 3b (HCC) (CMS/HCC) - Recent lab work for this condition was reviewed and discussed with the patient. Labs are stable with prior, no changes to medication are planned. Follow up in about 3 months (around 12/20/2024) for Routine F/U. documented in this encounter [facility] 09-21-2024 Note [place] [facility]iology - [facility] Subjective Terri Newton is a 79 y.o. year old female patient being seen for follow up [facility] for NSTEMI. Lasix was stopped upon discharge, but she says she will take 1/2 tablet as needed for LE edema. She saw PCP on 08/25/2024 and he reduced amlodipine back down to 5mg due to hypotension. Labs were drawn same day. Denies chest pain, SOB, and lightheadedness/syncope. Patient Active Problem List Diagnosis COPD exacerbation (CMS/HCC) Hypertensive disorder Hypothyroidism Obesity Paroxysmal atrial fibrillation (CMS/HCC) Anemia History of GI bleed Arrest of bone development or growth Familial hyperchylomicronemia Iron deficiency anemia Lumbago Angiodysplasia of small intestine, except duodenum with bleeding LAE (left atrial enlargement) Elevated troponin Other chest pain Chest pain CKD stage 3b, GFR 30-44 ml/min (CMS/HCC) Abnormal renal function test Nonrheumatic mitral valve regurgitation Family History Problem Relation Name Age of Onset Atrial fibrillation Brother Social History Tobacco Use Smoking status: Former Types: Cigarettes Smokeless tobacco: Never Substance Use Topics Alcohol use: Not Currently Drug use: Never HPI Ms. Newton is seen in follow-up. PMHx: paroxsymal a.fib s/p CV'n 03/2021, HTN, HLD, COPD, hypothyroidism, history of GI bleed requiring blood transfusion, gastritis, diverticulitis and GERD She is on propafenone for AF. At the end of May 2021, she was admitted for GI bleed and acute anemia. Her hgb was found to be as low as 2.6 for which she received multiple units of PRBCs. She underwent an EGD and colonscopy and was found to have gastritis and diverticulitis and hemorrhoids no acute bleeding was noted. 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 F/u hgb on 07/03/21 found her hgb to be improved to 10. Blood testing on 09/10/2021 showed hemoglobin dropping back to 6.6. She received 2 units of blood transfusion. There has been no checking of the hemoglobin after that. She was previously started on octreotide. She was admitted in July 2024 with GI bleeding, significant anemia, and mildly elevated troponin representing type II myocardial infarction and received transfusion of blood. She underwent EGD and colonoscopy showing multiple AVMs that were treated. Hemoglobin stabilized and she was discharged. During that admission she underwent an echocardiogram that showed possible mass attached to the posterior mitral valve apparatus a transesophageal echocardiogram showed that it was likely calcification. Today she reports that she has been doing well. No angina. No dyspnea. No major bleeding. No palpitations. No issues. She reports that she has been having lower extremity edema and she has been taking furosemide half of the 40 mg on and off at home. Furosemide was discontinued upon discharge from the hospital in July 2024. Review of Systems Cardiovascular: Positive for leg swelling and palpitations. Hematologic/Lymphatic: Bruises/bleeds easily. Musculoskeletal: Positive for arthritis and back pain. All other systems reviewed and are negative. Objective Visit Vitals BP 136/56 (BP Location: Left arm, Patient Position: Sitting) Pulse 66 Ht 1.626 m (5' 4 ) Wt 62.6 kg (138 lb) SpO2 98% BMI 23.69 kg/m??? Smoking Status Former BSA 1.68 m??? Physical Exam Constitutional: Appearance: She is [...] General: No swelling. Cervical back: Neck supple. Right lower le+ Pitting Edema present. Left lower le+ Pitting Edema present. Skin: General: Skin is warm and dry. Neurological: General: No focal deficit present. Mental Status: She is alert and oriented to person, place, and time. Psychiatric: Mood and Affect: Mood normal. Behavior: Behavior is cooperative. Judgment: Judgment normal. Allergies No Known Allergies Medications Current Outpatient Medications: amLODIPine (Norvasc) 10 mg tablet, Take 1 tablet (10 mg) by mouth once daily as directed for 93 doses. (Patient taking differently: Take 5 mg by mouth once daily as directed.), Disp: 93 t (more content not included)... [facility] 08-30-2024 History of Present illness Narrative Images from the original note were not included. Subjective Patient ID: Terri Newton is a 79 y.o. female who presents for Rt ear issues. Terri presents today for RT ear issues. She feel like it is plugged up and would like it cleaned out. Current Outpatient Medications on File Prior to Visit Medication Sig Dispense Refill albuterol (2.5 MG/3ML) 0.083% nebulizer solution Take 2.5 mg by nebulization every 4 (four) hours if needed albuterol HFA 90 mcg/act inhaler Inhale 2 puffs every 4 (four) hours if needed amLODIPine (Norvasc) 10 MG tablet Take 10 mg by mouth Daily benzonatate (Tessalon Perles) 100 MG capsule Take 1 capsule (100 mg) by mouth 3 (three) times a day as needed for cough Do not crush or chew. 30 capsule 1 cetirizine (ZyrTEC) 10 MG tablet Take 1 tablet (10 mg) by mouth Daily 30 tablet 11 Fluticasone-Salmeterol 250-50 MCG/ACT aerosol powder Inhale 1 puff Daily 1 each 11 levothyroxine (Synthroid, Levoxyl) 112 MCG tablet TAKE 1 TABLET BY MOUTH IN THE MORNING 90 tablet 1 pantoprazole (ProtoNix) 40 MG EC tablet Take 40 mg by mouth in the morning and 40 mg in the evening. Take before meals. propafenone (Rythmol) 150 MG tablet Take 150 mg by mouth in the morning and 150 mg before bedtime. Morning and bedtime. [DISCONTINUED] amLODIPine (Norvasc) 5 MG tablet Take 5 mg by mouth in the morning. [DISCONTINUED] Fluticasone-Salmeterol 250-50 MCG/ACT aerosol powder Inhale 1 puff in the morning and 1 puff in the evening. [DISCONTINUED] furosemide (Lasix) 40 MG tablet Take 40 mg by mouth in the morning. [DISCONTINUED] methocarbamol (Robaxin) 500 MG tablet Take 1 tablet (500 mg) by mouth every 8 (eight) hours if needed for muscle spasms 30 tablet 1 No current facility-administered medications on file prior to visit. I have reviewed and reconciled the history and medication list with the patient today. No Known Allergies Social History Tobacco Use Smoking status: Former Average packs/day: 1 pack/day for 59.0 years (59.0 ttl pk-yrs) Types: Cigarettes Start date: 1965 Vaping Use Vaping status: Unknown Substance Use Topics Alcohol use: Defer Drug use: Defer Family History Problem Relation Name Age of [...] Nephrolithiasis TOTAL VAGINAL HYSTERECTOMY 2009 Visit Vitals Smoking Status Former Review of Systems Constitutional: Negative. HENT: Positive for ear pain (Right). Eyes: Negative. Respiratory: Negative. Cardiovascular: Negative. Gastrointestinal: Negative. Genitourinary: Negative. Musculoskeletal: Negative. Skin: Negative. Neurological: Negative. Psychiatric/Behavioral: The patient is nervous/anxious. Depression Hematological: Negative. Endocrine: Negative. Allergic/Immunologic: Negative. Objective Physical Exam Vitals reviewed. Constitutional: Appearance: Normal appearance. HENT: Head: Normocephalic and atraumatic. Right Ear: There is impacted cerumen. Left Ear: Tympanic membrane, ear canal and external ear normal. Nose: Nose normal. Mouth/Throat: Mouth: Mucous membranes are moist. Eyes: Conjunctiva/sclera: Conjunctivae normal. Cardiovascular: Rate and Rhythm: Normal rate and regular rhythm. Pulses: Normal pulses. Heart sounds: Normal heart sounds. Pulmonary: Effort: Pulmonary effort is normal. Breath sounds: Normal breath sounds. Abdominal: Palpations: Abdomen is soft. Musculoskeletal: General: Normal range of motion. Cervical back: Normal range of motion and neck supple. Skin: General: Skin is warm and dry. Neurological: Mental Status: She is alert and oriented to person, place, and time. Psychiatric: Mood and Affect: Mood normal. Behavior: Behavior normal. Thought Content: Thought content normal. Judgment: Judgment normal. Assessment/Plan 1. Impacted cerumen of right ear (Primary) This pt presents today with a right ear cerumen impaction. She has some hearing loss dt the impaction and is complaining of significant pain. Her right ear is irrigated today, a curette is utilized to remove a large amount of cerumen. The TM was visualized following and mild redness is noted. 2. Chronic kidney disease, stage 3b (HCC) ([facility]/HCC) 08/25/24 labs BUN 7 - 25 mg/dL 27 High 26 High 23 29 High 40 High 49 High Creatinine 0.60 - 1.00 mg/dL 1.51 High 1.26 High R 0.97 R 0.98 R 1.32 High R 1.73 High R EGFR > OR = 60 mL/min/1.73m2 35 Low BUN/CREATININE RATIO 6 - 22 (calc) 18 20.6 R 23.7 R 29.6 R 30.3 R 28.3 R Sodium 135 - 146 mmol/L 138 138 R 137 R 140 R 134 Low R 135 Low R Potassium, Bld 3.5 - 5.3 mmol/L 4.5 5.0 R 4.4 R 4.5 R 4.4 R 4.4 R Chloride 98 - 110 mmol/L 104 104 R 105 R 106 R 102 R 101 R Carbon Dioxide 20 - 32 mmol/L 28 Calcium 8.6 - 10.4 mg/dL 8.3 Low 8.6 R 8.5 Low R 8.8 R 9.1 R 8.7 R PROTEIN, TOTAL 6.1 - 8.1 g/dL 6.2 ALBUMIN 3.6 - 5.1 g/dL 3.3 Low GLOBULIN 1.9 - 3.7 g/dL (calc) 2.9 ALBUMIN/GLOBULIN RATIO 1.0 - 2.5 (calc) 1.1 BILIRUBIN, TOTAL 0.2 - 1.2 mg/dL 0.3 ALKALINE PHOSPHATASE 37 - 153 U/L 74 AST 10 - 35 U/L 9 Low ALT 6 - 29 U/L 9 We will continue to monitor. No follow-ups on file. documented in this encounter [facility] 08-30-2024 Instructions Gay Kovacs NP - 08/30/2024 2:00 PM EST The patients ears are flushed and cerumen removed today. documented in this encounter [facility] 08-25-2024 History of Present illness Narrative Images from the original note were not included. HPI Follow-up Additional comments: Admitted [facility] 08/13/24 dx: NSTEMI,copd exac,anemia discharged home 08/19/24 started on tessalon,advair,pantoprazole increased amlodipine stopped lasix,robaxin,zyrtec follow up cardiology 09/21/24 Pt states she is not going to follow up with GI states she has had a whole work up and does not need any further workup Med Refill Additional comments: Advair-- DM elroy referral request Additional comments: Pt states she was previously (2020) referred to see dr maya but did not keep appt she would like a new referral sent to him Last edited by Cheyenne Ortiz LPN on 08/25/2024 10:04 AM. Subjective Patient ID: Terri Newton is a 79 y.o. female who presents for Follow-up (Admitted [facility] 08/13/24 dx: NSTEMI,copd exac,anemia discharged home 08/19/24 started on tessalon,advair,pantoprazole increased amlodipine stopped lasix,robaxin,zyrtec follow up cardiology 09/21/24 /Pt states she is not going to follow up with GI states she has had a whole work up and does not need any further workup), Med Refill (Advair-- DM elroy), and referral request (Pt states she was previously (2020) referred to see dr maya but did not keep appt she would like a new referral sent to him). Flowsheet Row Documentation from 08/21/2024 in [facility] with Jovanna Mascorro MA Hospital Information ED, Hospital or Fpc Facility Discharge? Hospital Patient has been contacted within two business days of discharge Yes Discharge Date 08/19/24 Discharged To: Home Setting Discharge Hospital [facility] Engagement Call Start Time 1055 Admission Date 08/13/24 Medications Discharge medications reviewed and reconciled from hospital? Yes Is the patient having any side effects they believe may be caused by any medication additions or changes? No Does the patient have all medications ordered at discharge? Yes Is the patient taking all medications as directed (includes completed medication regime)? Yes Appointments Does the patient have a primary care provider? Yes Self Management Patient Teaching Wrap Up Pt taking meds as directed from [facility] States her blood pressure has been running low since increase of amlodipine pt wonders if it should be redusced to 5mg again Med Refill Current Outpatient Medications on File Prior to Visit Medication Sig Dispense Refill albuterol (2.5 MG/3ML) 0.083% nebulizer solution Take 2.5 mg by nebulization every 4 (four) hours if needed albuterol HFA 90 mcg/act inhaler Inhale 2 puffs every 4 (four) hours if needed amLODIPine (Norvasc) 10 MG tablet Take 10 mg by mouth Daily benzonatate (Tessalon Perles) 100 MG capsule Take 1 capsule (100 mg) by mouth 3 (three) times a day as needed for cough Do not crush or chew. 30 capsule 1 cetirizine (ZyrTEC) 10 MG tablet Take 1 tablet (10 mg) by mouth Daily 30 tablet 11 Fluticasone-Salmeterol 250-50 MCG/ACT aerosol powder Inhale 1 puff in the morning and 1 puff in the evening. levothyroxine (Synthroid, Levoxyl) 112 MCG tablet TAKE 1 TABLET BY MOUTH IN THE MORNING 90 tablet 1 pantoprazole (ProtoNix) 40 MG EC tablet Take 40 mg by mouth in the morning and 40 mg in the evening. Take before meals. propafenone (Rythmol) 150 MG tablet Take 150 mg by mouth in the morning and 150 mg before bedtime. Morning and bedtime. [DISCONTINUED] amLODIPine (Norvasc) 5 MG tablet Take 5 mg by mouth in the morning. [DISCONTINUED] furosemide (Lasix) 40 MG tablet Take 40 mg by mouth in the morning. [DISCONTINUED] methocarbamol (Robaxin) 500 MG tablet Take 1 tablet (500 mg) by mouth every 8 (eight) hours if needed for muscle spasms 30 tablet 1 No current facility-administered medications on file prior to visit. I have reviewed and reconciled the history and medication list with the patient today. No Known Allergies Social History Tobacco Use Smoking status: Former Average packs/day: 1 pack/day for 59.0 years (59.0 ttl pk-yrs) Types: Cigarettes Start date: 1964 Family History Problem Relation Name Age of Onset Depression Mother Heart disease Father Hypertension Father Stroke Sister Cancer Sister stage 3 Lung cancer, stroke Atrial fibrillation Brother Fibromyalgia Brother Past Medical History: Diagnosis Date At low risk for fall Atrial fibrillation (CMS/HCC) In [facility]. Had CV done 4-5 years ago Not [...] Nephrolithiasis TOTAL VAGINAL HYSTERECTOMY 2008 Visit Vitals BP 100/50 Pulse 63 Ht 5' 4 Wt 139 lb SpO2 94% BMI 23.86 kg/m Smoking Status Former BSA 1.69 m Review of Systems Objective Physical Exam Constitutional: General: She is not in acute distress. Cardiovascular: Rate and Rhythm: Normal rate and regular rhythm. Heart sounds: Murmur heard. Decrescendo systolic murmur is present with a grade of 2/6. Pulmonary: Effort: No accessory muscle usage, prolonged expiration or respiratory distress. Breath sounds: No decreased air movement. Neurological: Mental Status: She is alert. Psychiatric: Mood and Affect: Mood normal. Thought Content: Thought content normal. Judgment: Judgment normal. Assessment/Plan Diagnoses and all orders for this visit: Panlobular emphysema (CMS/HCC) - Ambulatory referral to Pulmonology; Future - The patient was seen today in follow up of recent hospital stay. All available hospital records were reviewed and discussed with the patient. Hospital discharge meds were reviewed. Any changes are noted above. She had COPD Exacerbation, Cardiac strain with NSTEMI, GI Bleed with EGD and Colonoscopy done, Anemia. Doing well today. Paroxysmal atrial fibrillation (CMS/HCC) - Comprehensive metabolic panel; Future - Currently in NSR Angiodysplasia of small intestine, except duodenum with bleeding - CBC and differential - Comprehensive metabolic panel; Future History of GI bleed - CBC and differential Follow up in about 4 weeks (around 09/22/2024) for F/U med changes. documented in this encounter [facility] 08-19-2024 Note Patient notified and verbalized understanding. Tory Rodrigez MA [facility] 08-19-2024 Note Hospital Medicine Discharge Summary Final Discharge Diagnosis: Elevated troponin NSTEMI, likely demand ischemia Mitral valve echodensity Acute hypoxic respiratory failure secondary to COPD exacerbation Acute exacerbation of COPD Acute on chronic anemia Small bowel AVMs Acute on chronic CKD stage IIIb Paroxysmal atrial fibrillation, not on anticoagulation Essential hypertension Acquired hypothyroidism Admission Diagnosis: Chest pain [R07.9] Hospital course: Terri Newton is an 79 y.o. female who came from home with past medical history of hypertension, hypothyroidism, paroxysmal atrial fibrillation not on anticoagulation 2/2 recurrent GI bleeding, COPD on O2 PRN, CKD 3b presents as a direct admission from [facility] with chief complaint of SOB. Patient reports shortness of breath, cough with white sputum production for the last week. She also reports a history of recurrent GI bleed and states that she has had dark stools over the last 3 weeks. Labs are completed at [facility] showing WBC 7.0, RBC 2.83, hemoglobin 8.1, hematocrit 26.2, platelet count 405, INR 1.01, D-dimer 1.02, sodium 143, potassium 5.0, BUN 37, creatinine 1.9, troponin 1910 with a repeat troponin of 1845. EKG was completed showing sinus bradycardia with first-degree AV block. Dr. Bernardo was contacted by [facility] emergency department he states to transfer patient for further evaluation. Patient denying all chest pain. CXR was completed showing no acute process. Upon arrival to [facility], patient is still extremely short of breath with wheezes and rhonchi on examination. She is requiring 2 L of oxygen to maintain an oxygen saturation above 90%. Troponin has resulted at 0.41. Cardiology was consulted. TTE 08/14 showed EF 55%, no regional wall motion abnormality, severe enlargement of left atrium, large vegetation measuring 2.1 cm x 1.5 cm noted on the posterior mitral valve leaflet. Blood cultures negative till date. JOHNNIE 08/14 showed marked posterior mitral annular calcification small mobile echo density appears to be attatched to it most likely represts degenerative changes but should rule out vegetation and less likely clot, Recommend cardiac MRI. Cardiac MRI was performed on 08/18, results pending at the time of discharge. Results to be followed by cardiology outpatient. Patient was also treated for COPD exacerbation, her respiratory distress improved, patient qualified for 2 L oxygen at the time of discharge. Hemoglobin dropped to 6.9, 1 PRBC unit transfused 08/15/2024. Patient reported black tarry stools. EGD/colonoscopy performed on 08/17, which showed multiple AVMs in gastric body, duodenum and proximal jejunum treated with APC. Video capsule endoscopy is recommended outpatient. Hemoglobin is stable at the time of discharge. Patient discharged home in stable condition. Surgical, Invasive or Diagnostic Procedures Done During Admission: JOHNNIE, EGD, and Colonoscopy Consultations During Admission: Cardiology and Gastroenterology Dear Dr. Abebe MD, [place] is advised to follow up with you within 1-2 weeks. Items to follow up in ambulatory setting: Video capsule endoscopy with GI, cardiac MRI results to be followed with cardiology Follow-up with: Cardiology and Gastroenterology Scheduled appointments: No future appointments. Your medication list START taking these medications Instructions Last Dose Given Next Dose Due benzonatate 200 mg capsule Commonly known as: Tessalon Take 1 capsule (200 mg) by mouth if needed in the morning, at noon, and at bedtime for cough for up to 7 days. Do not crush or chew. fluticasone propion-salmeteroL 250-50 mcg/dose diskus inhaler Commonly known as: Advair Diskus Inhale 1 puff in the morning and at bedtime. Rinse mouth with water after use to reduce aftertaste and incidence of candidiasis. Do not swallow. pantoprazole 40 mg EC tablet Commonly known as: ProtoNix Take 1 tablet (40 mg) by mouth before breakfast and before evening meal for 110 doses. Do not crush, chew, or split. CHANGE how you take these medications Instructions Last Dose Given Next Dose Due amLODIPine 10 mg tablet Commonly known as: Norvasc Start taking on: August 20, 2024 What changed: medication strength how much to take Take 1 tablet (10 mg) by mouth once daily as directed for 93 doses. CONTINUE taking these medications Instructions Last Dose Given Next Dose Due levothyroxine 112 mcg tablet Commonly known as: Synthroid, Levoxyl propafenone 150 mg tablet Commonly known as: Rythmol Take 1 tablet (150 mg) by mouth in the morning and at bedtime. STOP taking these medications cetirizine 10 mg tablet Commonly known as: ZyrTEC furosemide 40 mg tablet Commonly known as: Lasix methocarbamol 500 mg tablet Commonly known as: Robaxin octreotide 100 mcg/mL injection Commonly known as: SandoSTATIN Where to Get Your Medications These medications were sent to (more content not included)... [facility] 08-19-2024 Note Attestation with edits by Gordon Lacy MD at 08/19/2024 1:55 PM By using the attestations below, I agree that I have read and verify that the documentation has been personally reviewed by me and ensure that the documentation accurately reflects the encounter. GC: I personally saw this patient on the day of the encounter, performed the trinh portions of the service and participated in the management and treatment plan of the patient. I reviewed and confirm the documentation by the Cardiovascular Fellow Dr Migdalia Carcamo. Please note there may be an additional personal documentation from me. Gordon Lacy MD Cardiology Progress Note Subjective Subjective: Patient was seen and examined. Reported feeling well. No chest pain, or shortness of breath. No abdominal pain, nausea, or vomiting. No orthopnea or paroxysmal nocturnal dyspnea. No lower leg swelling. No acute events overnight. Objective Current Facility-Administered Medications: acetaminophen (Tylenol) tablet 650 mg, 650 mg, oral, q6h PRN, Carmen Anderson NP amLODIPine (Norvasc) tablet 10 mg, 10 mg, oral, Once Daily, Migdalia Carcamo MD benzonatate (Tessalon) capsule 200 mg, 200 mg, oral, TID PRN, Samantha Sosa MD, 200 mg at 08/14/24 0617 ipratropium-albuteroL (Duo-Neb) 0.5-2.5 mg/3 mL nebulizer solution 3 mL, 3 mL, nebulization, q6h while awake, Carmen Anderson NP, 3 mL at 08/19/24 0737 levothyroxine (Synthroid, Levoxyl) tablet 112 mcg, 112 mcg, oral, Daily before breakfast, Carmen Anderson NP, 112 mcg at 08/19/24 0505 melatonin tablet 5 mg, 5 mg, oral, Nightly PRN, Carmen Anderson NP ondansetron ODT (Zofran-ODT) disintegrating tablet 4 mg, 4 mg, oral, q8h PRN OR ondansetron HCl (PF) (Zofran) injection 4 mg, 4 mg, intravenous, q6h PRN, Carmen Anderson NP Oxygen Therapy, , inhalation, Continuous, Carmen Anderson NP, Last Rate: 2 mL/hr at 08/18/24 1426, Oxygen On at 08/19/24 0737 pantoprazole (ProtoNix) EC tablet 40 mg, 40 mg, oral, BID AC, James Olivarez MD, 40 mg at 08/19/24 0505 polyethylene glycol (Glycolax) packet 17 g, 17 g, oral, Daily, Kiran Harmon MD, 17 g at 08/18/24 1007 predniSONE (Deltasone) tablet 40 mg, 40 mg, oral, Daily, James Olivarez MD, 40 mg at 08/18/24 1008 propafenone (Rythmol) tablet 150 mg, 150 mg, oral, BID, Carmen Anderson, ENTERTAINER OR VARIETY ARTIST, 150 mg at 08/18/243 Objective: Patient Vitals for the past 24 hrs: BP Temp Temp src Pulse Resp SpO2 Weight 08/19/24 0737 -- -- -- 62 18 100 % -- 08/19/24 0504 144/64 36.7 ???C (98.1 ???F) Temporal 77 18 100 % -- 08/19/24 0500 -- -- -- -- -- -- 62.9 kg (138 lb 9.6 oz) 08/18/24 2340 117/50 -- -- 70 16 98 % -- 08/18/24 2108 (!) 114/41 36.9 ???C (98.5 ???F) Temporal 67 22 97 % -- 08/18/24 1912 -- -- -- 65 20 98 % -- 08/18/24 1604 136/52 36.7 ???C (98.1 ???F) Temporal 62 20 95 % -- 08/18/24 1426 -- -- -- -- 14 -- -- 08/18/24 1143 158/62 36.2 ???C (97.2 ???F) Temporal 65 26 100 % -- Physical Exam Constitutional: General: She is not in acute distress. Appearance: Normal appearance. She is not ill-appearing. HENT: Head: Normocephalic and atraumatic. Cardiovascular: Rate and Rhythm: Normal rate and regular rhythm. Heart sounds: Normal heart sounds. No murmur heard. Pulmonary: Breath sounds: Normal breath sounds. No wheezing or rales. Abdominal: Palpations: Abdomen is soft. Tenderness: There is no abdominal tenderness. Musculoskeletal: Right lower leg: No edema. Left lower leg: No edema. Skin: General: Skin is warm and dry. Findings: No erythema or rash. Neurological: Mental Status: She is alert and oriented to person, place, and time. Mental status is at baseline. Relevant Lab Results Encounter Date: 08/13/24 ECG 12 lead Result Value Ventricular Rate 56 Atrial Rate 56 PA Interval 234 QRS DURATION 102 QT Interval 452 QTC CALCULATION(BAZETT) 436 P [place] 89 R-[place] 69 T Wave [place] 68 Impression Sinus bradycardia with sinus arrhythmia with 1st degree A-V block Anterior infarct , age undetermined Abnormal ECG No previous ECGs available Confirmed by Rehan Oliva ([id number]) on 08/13/2024 10:06:49 PM Lab Results Component Value Date TROPONINI 0.32 (HH) 08/14/2024 Transesophageal Echo (JOHNNIE) Addendum Date: 08/15/2024 1 [facility] Heart Station [address] [place] [address] [phone] (fax) Transesophageal Echocardiogram-[facility] Name: TERRI NEWTON Study Date: 08/14/2024 04:22 PM B/P: 128 mmHg/62 mmHg HR: 85 bpm Date of : 1945 Location: [facility] Height: 64 in. Age: 79 year(s) Patient Room: [facility] Weight: 135 lb. Gender: Female Patient Status: InPt BSA: 1.66 m2 Indication: Bacterial Endocarditis Examination: JOHNNIE (Transesophageal Echo / CFI), Agitated Saline, 3D images Image [place] (more content not included)... [facility] 08-18-2024 Note Hospital Medicine Daily Progress Note - 08/18/2024 4:09 PM; Room: [facility]/3111-01 Admission: 08/13/2024 4:26 PM; Length of stay: 5 days THE HOSPITALIST TEAM PREFERS TO USE [employer] CHAT FOR NON-URGENT COMMUNICATION 7AM-7PM. IF I DO NOT RESPOND WITHIN 20 MINUTES OR URGENT MATTERS, PLEASE CALL THROUGH THE COMBINATION OPERATOR. FROM 7PM-7AM, PLEASE PAGE [phone](COVR). Code Status: Full Code Barriers to Discharge: cardiac MRI Expected Discharge Date: 08/19/2024 Discharge Destination: home Overview Patient is seen for evaluation and management of elevated troponin. Subjective She was seen and examined at bedside this morning. She was alert awake and oriented. She denied any active complaints. Patient reports multiple black tarry stools since yesterday. Hemoglobin is stable, vital stable. Continue Protonix twice a day. Physical Exam Visit Vitals BP 158/62 (BP Location: Right arm, Patient Position: Sitting) Pulse 65 Temp 36.2 ???C (97.2 ???F) (Temporal) Resp 14 Intake/Output Summary (Last 24 hours) at 08/18/2024 1609 Last data filed at 08/18/2024 1500 Gross per 24 hour Intake 820 ml Output 920 ml Net -100 ml Physical Exam Constitutional: Appearance: Normal appearance. HENT: Nose: Nose normal. Mouth/Throat: Mouth: Mucous membranes are moist. Cardiovascular: Rate and Rhythm: Normal rate and regular rhythm. Pulses: Normal pulses. Heart sounds: Normal heart sounds. Pulmonary: Effort: Pulmonary effort is normal. Breath sounds: Normal breath sounds. Abdominal: General: Abdomen is flat. Palpations: Abdomen is soft. Skin: General: Skin is warm. Neurological: General: No focal deficit present. Mental Status: She is alert. Estimated body mass index is 24.6 kg/m??? as calculated from the following: Height as of this encounter: 1.626 m (5' 4 ). Weight as of this encounter: 65 kg (143 lb 4.8 oz). Active Inpatient Problems Principal Problem: Elevated troponin Active Problems: COPD exacerbation ([facility]) Hypertensive disorder Hypothyroidism Paroxysmal atrial fibrillation ([facility]) History of GI bleed CKD stage 3b, GFR 30-44 ml/min ([facility]) Assessment and Plan Elevated troponin NSTEMI, likely demand ischemia Mitral valve vegetation TTE 08/14 showed EF 55%, no regional wall motion abnormality, severe enlargement of left atrium, large vegetation measuring 2.1 cm x 1.5 cm noted on the posterior mitral valve leaflet. JOHNNIE performed 08/14/2024, it showed 1.9 cm echodensity on posterior leaflet of mitral valve. cardiac MRI pending. Blood cultures negative till date. Cardiology following. Acute hypoxic respiratory failure likely secondary to COPD exacerbation (improving) Acute exacerbation of COPD Patient reports as needed oxygen use at baseline, currently requiring 1-2 L nasal cannula oxygenation. Home O2 evaluation on discharge. Patient had productive cough with wheezing and rhonchi on auscultation on presentation. Continue ceftriaxone, azithromycin Continue DuoNeb. Patient does not use daily inhalers, only uses as needed. Continue oral prednisone for 5 days. Acute on chronic anemia History of small bowel AVMs No overt bleeding today. Hemoglobin is 6.9. 1 PRBC unit transfused 08/15/2024. Hold DVT prophylaxis, patient is not on anticoagulation for A-fib. Continue to monitor for overt bleeding. Monitor hemoglobin. Continue Protonix Patient had EGD/colonoscopy performed 08/17, which showed multiple AVMs in gastric body, duodenum and proximal jejunum treated with APC. Video capsule endoscopy recommended outpatient. Acute on chronic CKD stage IIIb (resolved) Continue to monitor kidney function. Urinalysis unremarkable. Paroxysmal atrial fibrillation, not on anticoagulation Essential hypertension Continue amlodipine Acquired hypothyroidism Continue levothyroxine VTE Prophylaxis: Contraindicated due to acute anemia Scheduled Meds [START ON 08/19/2024] amLODIPine, 10 mg, oral, Once Daily ipratropium-albuteroL, 3 mL, nebulization, q6h while awake levothyroxine, 112 mcg, oral, Daily before breakfast Oxygen Therapy, , inhalation, Continuous pantoprazole, 40 mg, oral, BID AC polyethylene glycol, 17 g, oral, Daily predniSONE, 40 mg, oral, Daily propafenone, 150 mg, oral, BID Pertinent Investigations Hematology: Results from last 7 days Lab Units 08/18/24 0335 08/17/24 0517 08/15/24 0421 08/14/24 1932 CRP mg/L -- -- -- 25.7* WBC AUTO 10*3/uL 8.76 12.27* < > -- HEMOGLOBIN g/dL 7.9* 8.3* < > 7.9* HEMATOCRIT % 25.1* 26.5* < > 25.1* MCV fL 90.0 88.9 < > -- PLATELETS AUTO 10*3/uL 359 389 < > -- < > = values in this interval not displayed. Chemistry: Results from last 7 days Lab Units 08/18/24 0335 08/17/24 0517 08/16/24 1101 08/15/24 0841 08/14/24 1932 08/14/24 0445 08/13/24 1811 SODIUM mmol/L 137 140 134* < > -- < > 134* POTASSIUM mmol/L 4.4 4.5 4.4 < > -- < > 4.7 CHLORIDE mmol/L 105 106 102 (more content not included)... [facility] 08-18-2024 Note 08/18/24 1157 Home Oxygen Therapy Evaluation Pulse Oximetry on room air at Rest 96 Pulse Ox on O2 with nasal cannula while at rest 98 Pulse Ox on room air while walking 87 Pulse Ox on O2 with nasal cannula while walking 96 Patient Qualification for home oxygen Qualifies $ Pulse Oximetry Multiple (Home 02 Eval) Patient does qualify for Home 02, patient will need 2L upon exertion. Thank you, Respiratory Care [facility] 08-18-2024 Note Occupational Therapy Occupational Therapy Evaluation Patient Name: Terri Newton : 1945 Today's Date: 08/18/2024 Time In: 1110 Time Out: 1120 Patient is a 79 y/o female presented to OSH with SOB. Transferred to [facility] for further cardiac work-up. Elevated troponin upon arrival General Subjective: friendly and cooperative, reports indep in room and no therapy needs Patient Active Problem List Diagnosis COPD exacerbation (CMS/HCC) Hypertensive disorder Hypothyroidism Obesity Paroxysmal atrial fibrillation (CMS/HCC) Anemia History of GI bleed Arrest of bone development or growth Familial hyperchylomicronemia Iron deficiency anemia Lumbago Angiodysplasia of small intestine, except duodenum with bleeding LAE (left atrial enlargement) Elevated troponin Other chest pain Chest pain CKD stage 3b, GFR 30-44 ml/min (CMS/HCC) Past Medical History: Diagnosis Date Atrial fibrillation (CMS/HCC) COPD (chronic obstructive pulmonary disease) (CMS/HCC) Hypertension Hypothyroidism Past Surgical History: Procedure Laterality Date CARDIAC CATHETERIZATION CARDIOVERSION HYSTERECTOMY Precautions Pain Pain Assessment Pain Score: 3 Clinical Progression: (throat) Cognition Cognition Overall Cognitive Status: Within Functional Limits General Assessment General Assessment Hearing: Intact Hand Dominance: Right Home Living Home Living Type of Home: House Lives With: Alone Home Adaptive Equipment: Oxygen (2LO2 prn) Home Layout: One level Home Access: Stairs to enter with rails (7) Bathroom Shower/Tub: Tub/shower unit Prior Level of Function Prior Function Level of [place]: Independent with ADLs and functional transfers, Independent with homemaking with ambulation (drives, 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) Prior Functional Mobility: Independent without device Prior IADLs IADL History Homemaking Responsibilities: Yes Meal Prep Responsibility: Primary Static Standing Balance Static Standing Balance Static Standing-Level of Assistance: Independent ADL ADL LE Dressing Assistance: Independent Transfers Transfers Transfer: (standing in room upon arrival, indep 100+ feet adl transfers) Objective General Assessments Activity Tolerance Endurance: Stage III Vision - Basic Assessment Current Vision: No visual deficits Sensation Light Touch: No apparent deficits Coordination Movements are Fluid and Coordinated: Yes Extremity Assessments RUE Assessment RUE Assessment: Within Functional Limits LUE Assessment LUE Assessment: Within Functional Limits Outcome Assessments AM-PAC 6 Clicks Putting on and taking off regular lower body clothing?: None (Independent) Bathing(Including washing,rinsing,drying)?: None (Independent) Toileting, which includes using the toilet,bedpan,or urinal?: None (Independent) Putting on and taking off regular upper body clothing?: None (Independent) Taking care of personal grooming such as brushing teeth?: None (Independent) Eating meals?: None (Independent) Total Score OT [facility]: 24 Assessment/Plan Plan OT Plan: No skilled OT OT Discharge Recommendations: Home OT - Discharge Recommendations Placed: Yes OT Goals Multi-Disciplinary Problems (from Occupational Therapy) Active Problems Not on file [facility] 08-18-2024 Note Attestation signed by Suzi Moreno MD at 08/18/2024 4:23 PM (Updated) I personally saw and examined the patient on the same date of service as resident/fellow Dr carcamo. I discussed the findings and therapeutic plan with the resident/fellow Dr carcamo. I agree with the documentation, except for any edits/updates below. Teaching Physician's Revisions: None Patient is doing very well. She is not short of breath anymore. She had a GI workup and she had many AVMs and she underwent cauterization. She is maintaining sinus rhythm. And she is not on anticoagulation due to blood loss via AVMs. Blood cultures no growth so far. She is going today for cardiac MRI to verify the nature of posterior mitral valve echodensity. If there is nothing concerning the patient can go home from cardiac point of view on current medications. I will increase amlodipine to 10 mg for better control of blood pressure. Will consider ischemic workup for mild elevation of troponin as outpatient with a stress test Suzi Moreno MD, [facility] Cardiology Progress Note Subjective Subjective: Patient was seen and examined. Reported feeling well. No chest pain, or shortness of breath. No abdominal pain, nausea, or vomiting. No orthopnea or paroxysmal nocturnal dyspnea. No lower leg swelling. No acute events overnight. Objective Current Facility-Administered Medications: acetaminophen (Tylenol) tablet 650 mg, 650 mg, oral, q6h PRN, Carmen Anderson ENTERTAINER OR VARIETY ARTIST amLODIPine (Norvasc) tablet 5 mg, 5 mg, oral, Once Daily, Carmen Anderson NP, 5 mg at 08/18/24 1008 benzonatate (Tessalon) capsule 200 mg, 200 mg, oral, TID PRN, Samantha Sosa MD, 200 mg at 08/14/24 0617 ipratropium-albuteroL (Duo-Neb) 0.5-2.5 mg/3 mL nebulizer solution 3 mL, 3 mL, nebulization, q6h while awake, Carmen Anderson NP, 3 mL at 08/17/24 1938 levothyroxine (Synthroid, Levoxyl) tablet 112 mcg, 112 mcg, oral, Daily before breakfast, Carmen Anderson NP, 112 mcg at 08/18/24 0604 melatonin tablet 5 mg, 5 mg, oral, Nightly PRN, Carmen Anderson ENTERTAINER OR VARIETY ARTIST ondansetron ODT (Zofran-ODT) disintegrating tablet 4 mg, 4 mg, oral, q8h PRN OR ondansetron HCl (PF) (Zofran) injection 4 mg, 4 mg, intravenous, q6h PRN, Carmen Anderson ENTERTAINER OR VARIETY ARTIST Oxygen Therapy, , inhalation, Continuous, Carmen Anderson NP, Oxygen On at 08/18/24 1001 pantoprazole (ProtoNix) injection 40 mg, 40 mg, intravenous, q12h LOUIEJames MD, 40 mg at 08/18/24 1008 polyethylene glycol (Glycolax) packet 17 g, 17 g, oral, Daily, Kiran Harmon MD, 17 g at 08/18/24 1007 predniSONE (Deltasone) tablet 40 mg, 40 mg, oral, Daily, James Olivarez MD, 40 mg at 08/18/24 1008 propafenone (Rythmol) tablet 150 mg, 150 mg, oral, BID, Carmen Anderson NP, 150 mg at 08/18/24 1007 Objective: Patient Vitals for the past 24 hrs: BP Temp Temp src Pulse Resp SpO2 Height Weight 08/18/24 0710 (!) 144/49 36.2 ???C (97.2 ???F) Temporal 54 19 97 % -- -- 08/18/24 0604 (!) 133/47 36.6 ???C (97.9 ???F) Temporal 55 21 94 % -- -- 08/18/24 0300 -- -- -- -- -- -- -- 65 kg (143 lb 4.8 oz) 08/17/24 2307 138/63 -- -- 77 16 98 % -- -- 08/17/242007 (!) 124/46 36.6 ???C (97.9 ???F) Temporal 69 20 100 % -- -- 08/17/24 1938 -- -- -- 70 15 99 % -- -- 08/17/24 1726 126/60 36.8 ???C (98.3 ???F) Temporal -- -- -- -- -- 08/17/24 1700 (!) 132/40 -- -- 67 16 99 % -- -- 08/17/24 1645 (!) 125/46 -- -- 62 16 98 % -- -- 08/17/24 1630 119/65 -- -- 69 15 100 % -- -- 08/17/24 1615 (!) 120/47 -- -- 67 21 100 % -- -- 08/17/24 1600 116/55 -- -- 67 23 100 % -- -- 08/17/24 1552 (!) 127/44 36.1 ???C (97 ???F) Tympanic 90 22 100 % -- -- 08/17/24 1246 156/55 36.2 ???C (97.2 ???F) Temporal 70 18 97 % 1.626 m (5' 4 ) 66 kg (145 lb 8.1 oz) 08/17/24 1215 152/53 36.5 ???C (97.7 ???F) Temporal 65 23 97 % -- -- Physical Examination: Physical Exam Constitutional: General: She is not in acute distress. Appearance: Normal appearance. She is not ill-appearing. HENT: Head: Normocephalic and atraumatic. Cardiovascular: Rate and Rhythm: Normal rate and regular rhythm. Heart sounds: Normal heart sounds. No murmur heard. Pulmonary: Breath sounds: Normal breath sounds. No wheezing or rales. Abdominal: Palpations: Abdomen is soft. Tenderness: There is no abdominal tenderness. Musculoskeletal: Right lower leg: No edema. Left lower leg: No edema. Skin: General: Skin is warm and dry. Findings: No erythema or rash. Neurological: Mental Status: She is alert and oriented to person, place, and time. Mental status is at baseline. Relevant Lab Results Encounter Date: 08/13/24 ECG 12 lead Result Value Ventricular Rate 56 Atrial Rate 56 PA Interval 234 QRS DURATION 102 QT Interval 452 QTC CALCULATION(BAZETT) 436 P [place] 89 R-[place] 69 T Wave [place] 68 Impression Sinus bradycardia with sinus arrhyt (more content not included)... [facility] 08-18-2024 Note Physical Therapy Physical Therapy Evaluation Patient Name: Terri Newton : 1945 Today's Date: 08/18/2024 Patient is a 79 y/o female presented to OSH with SOB. Transferred to [facility] for further cardiac work-up. Elevated troponin upon arrival, currently trending down 0.32. Today, patient reports feeling well. States they are going to let me go home today . Tolerated session well this morning. Appears to be at/near her functional baseline. No skilled acute PT needs. Will plan to sign off. Discharge: Home General Subjective: RN approved PT session this morning. Patient sitting EOB upon arrival, agreeable to session. 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 Iron deficiency anemia Lumbago Angiodysplasia of small intestine, except duodenum with bleeding LAE (left atrial enlargement) Elevated troponin Other chest pain Chest pain CKD stage 3b, GFR 30-44 ml/min ([facility]) Past Medical History: Diagnosis Date Atrial fibrillation ([facility]/HCC) COPD (chronic obstructive pulmonary disease) ([facility]) Hypertension Hypothyroidism Past Surgical History: Procedure Laterality Date CARDIAC CATHETERIZATION CARDIOVERSION HYSTERECTOMY Precautions Precautions Medical Precautions: telemetry, oxygen (2L PRN) Pain Pain Assessment Pain Assessment: No/denies pain Pain Score: 0 - No pain Cognition Cognition Overall Cognitive Status: Within Functional Limits Arousal/Alertness: Appropriate responses to stimuli Orientation Level: Oriented X4 Following Commands: Follows all commands and directions without difficulty General Assessment General Assessment Hearing: Intact Hand Dominance: Right Home Living Home Living Type of Home: House Lives With: Alone Home Adaptive Equipment: Oxygen (2L PRN) Home Layout: One level Home Access: Stairs to enter with rails Entrance Stairs-Rails: Right Entrance Stairs-Number of Steps: 7 Bathroom Toilet: Standard Bathroom Equipment: None Prior Level of Function Prior Function Level of [place]: Independent with ADLs and functional transfers, Independent with homemaking with ambulation Prior Functional Mobility: Independent without device ADL Assistance: Independent Homemaking Assistance: Independent Vision Basic Assessment Vision - Basic Assessment Current Vision: No visual deficits Activity Tolerance Activity Tolerance Endurance: Stage IV Activity Tolerance Comments: Mild SOB with ambulation on room air, O2 saturation ~91% General Assessments Activity Tolerance Endurance: Stage IV Activity Tolerance Comments: Mild SOB with ambulation on room air, O2 saturation ~91% Sensation Light Touch: No apparent deficits Coordination Movements are Fluid and Coordinated: Yes Postural Control Postural Control: Within Functional Limits Static Sitting Balance Static Sitting-Balance Support: Feet supported Static Sitting-Level of Assistance: Independent Dynamic Sitting Balance Dynamic Sitting-Balance Support: Feet supported, Right upper extremity supported, Left upper extremity supported Dynamic Sitting-Balance: Forward lean, Lateral lean Dynamic Sitting Balance-Level of Assistance: Independent Static Standing Balance Static Standing-Balance Support: No upper extremity supported Static Standing-Level of Assistance: Independent Dynamic Standing Balance Dynamic Standing-Balance Support: No upper extremity supported Dynamic Standing Balance-Level of Assistance: Independent Functional Assessments Bed Mobility Bed Mobility: No (Sitting EOB upon arrival) Transfers Transfer: Yes Transfer 1 Technique 1: Sit to stand, Stand to sit (From EOB) Transfer Device 1: none Transfer Level of Assistance 1: Independent Ambulation Ambulation: Yes Ambulation 1 Surface 1: Level tile Device 1: No device Assistance 1: Independent Quality of Gait 1: Symmetrical step through gait pattern with WNL gait speed. Steady throughout Comments/Distance (ft) 1: 150 ft Extremity Assessments RUE Assessment RUE Assessment: Within Functional Limits LUE Assessment LUE Assessment: Within Functional Limits RLE Assessment RLE Assessment: Within Functional Limits LLE Assessment LLE Assessment: Within Functional Limits Therapeutic Exercise Outcome Assessments 6 Clicks (Mobility) Help from another person turning from your back to your side while in a flat bed without using bedrails: None Help from another person moving from lying on your back to sitting on the side of a flat bed without using bedrails: None Help from another person moving to a (more content not included)... [facility] 08-18-2024 Note This report has been cancelled. [facility] 08-18-2024 Note [facility] Teaching GI Ser vice Consult Gastroenterology/Hepatology Progress Note IDENTIFYING DATA PATIENT: Terri Newton ADMIT DATE: 08/13/2024 TIME OF EVALUATION: 08/18/2024 8:38 AM HOSPITAL STAY: LOS: 5 days REASON FOR HOSPITALIZATION: Anemia SUBJECTIVE/INTERVAL HISTORY Terri Newton's overnight events were reviewed. Hgb 7.9 from 8.3. Patient has not had a bowel movement, she denies overt bleeding, nausea, vomiting or abdominal pain. Reviewed EGD findings of multiple AVM's and recommendation of outpatient VCE with patient who verbalized understanding and agreement with POC. OBJECTIVE MEDICATIONS SCHEDULED: @MEDSCURRENTMD@ PRNs: acetaminophen, 650 mg, q6h PRN benzonatate, 200 mg, TID PRN melatonin, 5 mg, Nightly PRN ondansetron ODT, 4 mg, q8h PRN Or ondansetron, 4 mg, q6h PRN Physical VITALS: BP (!) 144/49 (BP Location: Right arm, Patient Position: Sitting) Pulse 54 Temp 36.2 ???C (97.2 ???F) (Temporal) Resp 19 Ht 1.626 m (5' 4 ) Wt 65 kg (143 lb 4.8 oz) SpO2 97% BMI 24.60 kg/m??? GEN: Alert and oriented x3, NAD HEENT: Atraumatic, normocephalic CV: No edema visualized PULM: Respirations even and unlabored ABD: Soft, non-tender, non-distended NEURO: Moves all 4 extremities spontaneously, answers questions appropriately LABS AND IMAGING CBC: Lab Results Component Value Date WBC 8.76 08/18/2024 RBC 2.79 (L) 08/18/2024 HGB 7.9 (L) 08/18/2024 HCT 25.1 (L) 08/18/2024 MCV 90.0 08/18/2024 RDW 17.8 (H) 08/18/2024 PLT 359 08/18/2024 CMP: Lab Results Component Value Date NA 137 08/18/2024 K 4.4 08/18/2024 CL 105 08/18/2024 CO2 28 08/18/2024 BUN 23 08/18/2024 IMAGING: Esophagogastroduodenoscopy (EGD) Procedure Note 08/17/2024 Impression: Normal esophagus 2 AVMs seen in the gastric body s/p APC application Multiple AVMs seen in the duodenum s/p APC application Multiple AVMs seen in the proximal jejunum with 1 AVM with active oozing s/p APC application to all AVMs. Recommendations: Resume regular diet Protonix 40 mg oral bid for 8 weeks then once daily indefinitely. Would recommend to continue holding anticoagulation if okay by provider. Would recommend to repeat video capsule enteroscopy as outpatient. ASSESSMENT AND PLAN Terri Newton is a 79 y.o. female with a known history significant for recurrent GI bleed most likely secondary to multiple AVMs in the small bowel as seen on the VCE as reported by the patient, A-fib not on anticoagulation at home, CKD and COPD was admitted to the hospital as a case of shortness of breath most likely secondary to acute exacerbation of COPD. Our GI service was consulted for melena on/off of 3 weeks duration prior to her presentation. Assessment Melena with multiple AVM's on EGD s/p APC Patient endorses a longstanding history of melena on/off. She mentioned that for the past few weeks she had episodes of melena with no hematochezia, no abdominal pain, no nausea or vomiting. EGD 08/17/2024 with 2 AVMs seen in the gastric body s/p APC application, multiple AVMs seen in the duodenum s/p APC application, multiple AVMs seen in the proximal jejunum with 1 AVM with active oozing s/p APC application to all AVMs Patient is taking Sandostatin Patient was taken off anticoagulation due to AVMs, recurrent bleeding Acute on chronic anemia Patient presented with a hemoglobin of 8.1 g/dL. Baseline noted to be around 9 g/dL a few months ago. Most likely secondary to GI bleed in the settings of known history of recurrent GI bleed. Acute exacerbation of COPD Patient is currently requiring oxygen continuously. NSTEMI Could be type II in the settings of COPD exacerbation. Cardiology on board. A-fib not on anticoagulation According to the patient she was taken off anticoagulation due to recurrent GI bleeds that were found to be from the small bowel CKD. Plan Protonix 40 mg oral bid for 8 weeks then once daily indefinitely. Recommend to continue holding anticoagulation if okay by provider, consider risk vs benefit in the setting of recurrent bleeding. Recommend to repeat video capsule enteroscopy as outpatient. Continue trending hemoglobin and transfuse blood as needed Monitor for overt bleeding OK for a regular diet from a GI perspective. GI will respectfully sign off; however, we are readily available if additional questions or concerns arise. Patient should follow up with her established GI provider in [facility]. The case will be discussed with the attending physician For Questions please contact us at: [place] [facility] 6 am to 4 pm weekdays in house Phone extension: [phone] 4 pm to 6 am or weekends please contact the die cutter operator to page the fellow train conductor [facility] 08-18-2024 Note Occupational Therapy Name: Terri Newton Date of : 1945 Today's Date: 08/18/24 Pt is unable to be seen for therapy at this time secondary to MRI . Will check back and complete therapy session as appropriate. Check No Charge Time attempted: 831 [facility] 08-17-2024 Note Patient: Terri mayberry Procedure Summary Date: 08/17/24 Room / Location: [facility] Anesthesia Start: 1347 Anesthesia Stop: 155 Procedures: DIAGNOSTIC COLONOSCOPY EGD Diagnosis: Anemia, unspecified type Melena Scheduled Providers: Gerald Lorenzo MD; JENNIFER Dai; Jl Hill MD Responsible Provider: Gerald Lorenzo MD Anesthesia Type: MAC ASA Status: 3 Anesthesia Type: MAC Vitals Value Taken Time BP 127/44 08/17/24 1552 Temp 36.1 ???C (97 ???F) 08/17/24 1552 Pulse 88 08/17/24 1552 Resp 20 08/17/24 1552 SpO2 100 % 08/17/24 155 Anesthesia Post Evaluation Patient location during evaluation: PACU Patient participation: complete - patient participated Level of consciousness: awake Pain score: 1 Pain management: adequate Airway patency: patent Cardiovascular status: acceptable Respiratory status: acceptable Patient is hemodynamically stable and is able to be discharged from PACU per anesthesia protocol. No notable events documented. [facility] 08-17-2024 Note Patient: Terri mayberry Procedure Summary Date: 08/17/24 Room / Location: [facility] Anesthesia Start: 1347 Anesthesia Stop: Procedures: DIAGNOSTIC COLONOSCOPY EGD Diagnosis: Anemia, unspecified type Melena Scheduled Providers: Gerald Lorenzo MD; JENNIFER Dai; Jl Hill MD Responsible Provider: Gerald Lorenzo MD Anesthesia Type: MAC ASA Status: 3 Anesthesia Post Transport Note Transport to: [facility] O2 Route: nasal cannula Oxygen Flow (L/min): 3 Patient Monitor: direct observation Transport: uneventful Patient condition is: stable [facility] 08-17-2024 Note Airway Date/Time: 08/17/2024 2:29 PM Urgency: elective General Information and Staff Patient location during procedure: OR Anesthesiologist: Gerald Lorenzo MD Resident/STAINED GLASS JOINER/CAA: JENNIFER Marie Performed: resident/STAINED GLASS JOINER/CAA Indications and Patient Condition Indications for airway management: anesthesia Spontaneous Ventilation: absent Sedation level: deep Preoxygenated: yes Mask difficulty assessment: 0 - not attempted Final Airway Details Final airway type: endotracheal airway Successful airway: ETT Cuffed: yes Successful intubation technique: video laryngoscopy Facilitating devices/methods: intubating stylet Endotracheal tube insertion site: oral Blade: Collier Blade size: #3 ETT size (mm): 7.5 Cormack-Lehane Classification: grade I - full view of glottis Placement verified by: chest auscultation and capnometry Measured from: lips ETT to lips (cm): 23 Number of attempts at approach: 1 Number of other approaches attempted: 0 Additional Comments Hard bite block placed [facility] 08-17-2024 Note Hospital Medicine Daily Progress Note - 08/17/2024 12:15 PM; Room: [address] [place] [address] Admission: 08/13/2024 4:26 PM; Length of stay: 4 days THE HOSPITALIST TEAM PREFERS TO USE [employer] FOR NON-URGENT COMMUNICATION 7AM-7PM. IF I DO NOT RESPOND WITHIN 20 MINUTES OR URGENT MATTERS, PLEASE CALL THROUGH THE COMBINATION OPERATOR. FROM 7PM-7AM, PLEASE PAGE [phone](COVR). Code Status: Full Code Barriers to Discharge: cardiac MRI, endoscopy/colonoscopy, PT/OT evaluation Expected Discharge Date: 08/18/2024 Discharge Destination: home Overview Patient is seen for evaluation and management of elevated troponin. Subjective She was seen and examined at bedside this morning. She was alert awake and oriented. She denied any active complaints. Patient reports multiple black tarry stools since yesterday. Hemoglobin is stable, vital stable. Continue Protonix twice a day. Physical Exam Visit Vitals BP (!) 137/97 Pulse 66 Temp 36.4 ???C (97.5 ???F) (Temporal) Resp 14 Intake/Output Summary (Last 24 hours) at 08/17/2024 1215 Last data filed at 08/17/2024 1024 Gross per 24 hour Intake 785 ml Output -- Net 785 ml Physical Exam Constitutional: Appearance: Normal appearance. HENT: Nose: Nose normal. Mouth/Throat: Mouth: Mucous membranes are moist. Cardiovascular: Rate and Rhythm: Normal rate and regular rhythm. Pulses: Normal pulses. Heart sounds: Normal heart sounds. Pulmonary: Effort: Pulmonary effort is normal. Breath sounds: Normal breath sounds. Abdominal: General: Abdomen is flat. Palpations: Abdomen is soft. Skin: General: Skin is warm. Neurological: General: No focal deficit present. Mental Status: She is alert. Estimated body mass index is 24.98 kg/m??? as calculated from the following: Height as of this encounter: 1.626 m (5' 4 ). Weight as of this encounter: 66 kg (145 lb 8.1 oz). Active Inpatient Problems Principal Problem: Elevated troponin Active Problems: COPD exacerbation (CMS/[facility]) Hypertensive disorder Hypothyroidism Paroxysmal atrial fibrillation ([facility]) History of GI bleed CKD stage 3b, GFR 30-44 ml/min ([facility]) Assessment and Plan Elevated troponin NSTEMI, likely demand ischemia Mitral valve vegetation TTE 08/14 showed EF 55%, no regional wall motion abnormality, severe enlargement of left atrium, large vegetation measuring 2.1 cm x 1.5 cm noted on the posterior mitral valve leaflet. JOHNNIE performed 08/14/2024, it showed 1.9 cm echodensity on posterior leaflet of mitral valve. cardiac MRI pending. Blood cultures negative till date. Cardiology following. Acute hypoxic respiratory failure likely secondary to COPD exacerbation (improving) Acute exacerbation of COPD Patient reports as needed oxygen use at baseline, currently requiring 1-2 L nasal cannula oxygenation. Home O2 evaluation on discharge. Patient had productive cough with wheezing and rhonchi on auscultation on presentation. Continue ceftriaxone, azithromycin Continue DuoNeb. Patient does not use daily inhalers, only uses as needed. Continue oral prednisone for 5 days. Acute on chronic anemia History of small bowel AVMs No overt bleeding today. Hemoglobin is 6.9. 1 PRBC unit transfused 08/15/2024. Hold DVT prophylaxis, patient is not on anticoagulation for A-fib. Continue to monitor for overt bleeding. Monitor hemoglobin. Continue Protonix Plan for EGD and colonoscopy today. Acute on chronic CKD stage IIIb (resolved) Continue to monitor kidney function. Urinalysis unremarkable. Paroxysmal atrial fibrillation, not on anticoagulation Essential hypertension Continue amlodipine Acquired hypothyroidism Continue levothyroxine VTE Prophylaxis: Contraindicated due to acute anemia Scheduled Meds amLODIPine, 5 mg, oral, Once Daily azithromycin, 500 mg, intravenous, q24h cefTRIAXone, 2 g, intravenous, q24h ipratropium-albuteroL, 3 mL, nebulization, q6h while awake levothyroxine, 112 mcg, oral, Daily before breakfast Oxygen Therapy, , inhalation, Continuous pantoprazole, 40 mg, intravenous, q12h LOUIE polyethylene glycol, 17 g, oral, Daily predniSONE, 40 mg, oral, Daily propafenone, 150 mg, oral, BID Pertinent Investigations Hematology: Results from last 7 days Lab Units 08/17/24 0517 08/16/24 1101 WBC AUTO 10*3/uL 12.27* 15.28* HEMOGLOBIN g/dL 8.3* 8.4* HEMATOCRIT % 26.5* 26.5* MCV fL 88.9 89.8 PLATELETS AUTO 10*3/uL 389 434* Chemistry: Results from last 7 days Lab Units 08/17/24 0517 08/16/24 1101 08/15/24 0841 08/14/24 1932 08/14/24 0445 08/13/24 1811 SODIUM mmol/L 140 134* 135* -- < > 134* POTASSIUM mmol/L 4.5 4.4 4.4 -- < > 4.7 CHLORIDE mmol/L 106 102 101 -- < > 101 CO2 mmol/L 30 25 28 -- < > 25 BUN mg/dL 29* 40* 49* -- < > 37* CREATININE mg/dL 0.98 1.32* 1.73* -- < > 1.44* GLUCOSE mg/dL 93 163* 126* -- < > 152* MAGNESIUM mg/dL -- -- -- 2.0 -- 1.8* CALCIUM mg/dL 8.8 9.1 8.7 -- < > 9.0 < > = values (more content not included)... [facility] 08-17-2024 Note Patient: Terri mayberry Procedure Information Date/Time: 08/17/24 1330 Scheduled providers: Gerald Lorenzo MD; JENNIFER Dai; Jl Hill MD Procedures: DIAGNOSTIC COLONOSCOPY EGD Location: [facility] Endoscopy Relevant Problems Anesthesia (within normal limits) Cardio ECHO this admission The left ventricle is normal size. Global left ventricular systolic function is normal. The EF is 55 % visually. Interventricular septal thickness is increased in the proximal portion. No regional wall motion abnormality. 1.8 cm mass on the posterior mitral leaflet. Atypical for vegetation. Chronic Afib Elevated troponins this admission (+) Angiodysplasia of small intestine, except duodenum with bleeding (+) Hypertensive disorder (+) Paroxysmal atrial fibrillation (CMS/HCC) Endo (+) Hypothyroidism /Renal Stage 3b CKD, Cr 1.9 (+) CKD stage 3b, GFR 30-44 ml/min (CMS/HCC) Pulmonary Home O2 dependent. Long standing tobacco use, Severe COPD (+) COPD exacerbation (CMS/[facility]) Clinical information reviewed: Physical Exam Airway Mallampati: II TM distance: >3 FB Neck ROM: full Cardiovascular - normal exam Dental Comments: Very poor dentition, multiple missing teeth. Pulmonary - normal exam Abdominal Anesthesia Plan ASA 3 general (Extremely high risk for dental injury. Discussed with the patient. She understands and agrees to proceed.) The patient is a current smoker. Patient was previously instructed to abstain from smoking on day of procedure. Patient did not smoke on day of procedure. intravenous induction Anesthetic plan and risks discussed with patient. Plan discussed with CAA. Additional Equipment Requests [facility] 08-17-2024 Note Attestation signed by Suzi Moreno MD at 08/17/2024 7:21 PM I personally saw and examined the patient on the same date of service as resident/fellow Dr. Carcamo. I discussed the findings and therapeutic plan with the resident/fellow Dr. Carcamo. I agree with the documentation, except for any edits/updates below. Teaching Physician's Revisions: None Suzi Moreno MD, [facility] Cardiology Progress Note Subjective Subjective: Patient was seen and examined. Reported feeling well. No chest pain, or shortness of breath. No abdominal pain, nausea, or vomiting. No orthopnea or paroxysmal nocturnal dyspnea. No lower leg swelling. No acute events overnight. Objective Current Facility-Administered Medications: acetaminophen (Tylenol) tablet 650 mg, 650 mg, oral, q6h PRN, Carmen Anderson NP amLODIPine (Norvasc) tablet 5 mg, 5 mg, oral, Once Daily, Carmen Anderson NP, 5 mg at 08/17/24 0822 azithromycin IVPB 500 mg in NS 255 mL, 500 mg, intravenous, q24h, James Olivarez MD, Stopped at 08/16/24 2300 benzonatate (Tessalon) capsule 200 mg, 200 mg, oral, TID PRN, Samantha Sosa MD, 200 mg at 08/14/24 0617 bisacodyl (Dulcolax) EC tablet 10 mg, 10 mg, oral, BID, Kiran Harmon MD, 10 mg at 08/16/24 2159 cefTRIAXone (Rocephin) IVPB 2 g in NS 50 mL (Mini-Bag Plus), 2 g, intravenous, q24h, James Olivarez MD, Stopped at 08/16/24 2230 ipratropium-albuteroL (Duo-Neb) 0.5-2.5 mg/3 mL nebulizer solution 3 mL, 3 mL, nebulization, q6h while awake, Carmen Anderson NP, 3 mL at 08/17/24 0745 levothyroxine (Synthroid, Levoxyl) tablet 112 mcg, 112 mcg, oral, Daily before breakfast, Carmen Anderson NP, 112 mcg at 08/17/24 0535 melatonin tablet 5 mg, 5 mg, oral, Nightly PRN, Carmen Anderson NP ondansetron ODT (Zofran-ODT) disintegrating tablet 4 mg, 4 mg, oral, q8h PRN OR ondansetron HCl (PF) (Zofran) injection 4 mg, 4 mg, intravenous, q6h PRN, Carmen Anderson NP Oxygen Therapy, , inhalation, Continuous, Carmen Anderson NP, Oxygen Off at 08/16/242021 pantoprazole (ProtoNix) injection 40 mg, 40 mg, intravenous, q12h LOUIE, James Olivarez MD, 40 mg at 08/16/242158 polyethylene glycol (Glycolax) packet 17 g, 17 g, oral, Daily, Kiran Harmon MD, 17 g at 08/16/24 0841 predniSONE (Deltasone) tablet 40 mg, 40 mg, oral, Daily, James Olivarez MD, 40 mg at 08/16/24 0841 propafenone (Rythmol) tablet 150 mg, 150 mg, oral, BID, Carmen Anderson NP, 150 mg at 08/17/24 0822 Objective: Patient Vitals for the past 24 hrs: BP Pulse Resp SpO2 Weight 08/17/24 0821 (!) 137/97 66 14 96 % -- 08/17/24 0548 150/60 64 17 93 % -- 08/17/24 0445 -- -- -- -- 66 kg (145 lb 8.1 oz) 08/17/24 0012 144/56 70 18 92 % -- 08/16/24 1945 124/50 58 16 94 % -- 08/16/24 1915 -- 55 20 92 % -- 08/16/24 1615 134/55 59 20 98 % -- 08/16/24 1308 -- 68 20 94 % -- Physical Examination: Physical Exam Constitutional: General: She is not in acute distress. Appearance: Normal appearance. She is not ill-appearing. HENT: Head: Normocephalic and atraumatic. Cardiovascular: Rate and Rhythm: Normal rate and regular rhythm. Heart sounds: Normal heart sounds. No murmur heard. Pulmonary: Breath sounds: Normal breath sounds. No wheezing or rales. Abdominal: Palpations: Abdomen is soft. Tenderness: There is no abdominal tenderness. Musculoskeletal: Right lower leg: No edema. Left lower leg: No edema. Skin: General: Skin is warm and dry. Findings: No erythema or rash. Neurological: Mental Status: She is alert and oriented to person, place, and time. Mental status is at baseline. Relevant Lab Results Encounter Date: 08/13/24 ECG 12 lead Result Value Ventricular Rate 56 Atrial Rate 56 PA Interval 234 QRS DURATION 102 QT Interval 452 QTC CALCULATION(BAZETT) 436 P [place] 89 R-[place] 69 T Wave [place] 68 Impression Sinus bradycardia with sinus arrhythmia with 1st degree A-V block Anterior infarct , age undetermined Abnormal ECG No previous ECGs available Confirmed by Rehan Oliva ([id number]) on 08/13/2024 10:06:49 PM Lab Results Component Value Date TROPONINI 0.32 (HH) 08/14/2024 Transesophageal Echo (JOHNNIE) Addendum Date: 08/15/2024 1 [facility] Heart Station [address] [place] [address] [phone] (fax) Transesophageal Echocardiogram-[facility] Name: TERRI NEWTON Study Date: 08/14/2024 04:22 PM B/P: 128 mmHg/62 mmHg HR: 85 bpm Date of : 1945 Location: [facility] Height: 64 in. Age: 79 year(s) Patient Room: [facility] Weight: 135 lb. Gender: Female Patient Status: InPt BSA: 1.66 m2 Indication: Bacterial Endocarditis Examination: JOHNNIE (Transesophageal Echo / CFI), Agitated Saline, 3D images Image Quality: Good Patient Consent: Informed, written consent was obtained for the procedure Exam Location: A (more content not included)... [facility] 08-16-2024 Note Hospital Medicine Daily Progress Note - 08/16/2024 11:03 AM; Room: [facility]/3111-01 Admission: 08/13/2024 4:26 PM; Length of stay: 3 days THE HOSPITALIST TEAM PREFERS TO USE [employer] FOR NON-URGENT COMMUNICATION 7AM-7PM. IF I DO NOT RESPOND WITHIN 20 MINUTES OR URGENT MATTERS, PLEASE CALL THROUGH THE COMBINATION OPERATOR. FROM 7PM-7AM, PLEASE PAGE [phone](COVR). Code Status: Full Code Barriers to Discharge: Acute kidney injury, cardiac MRI, acute anemia Expected Discharge Date: 2 to 3 days Discharge Destination: home Overview Patient is seen for evaluation and management of elevated troponin. Subjective She was seen and examined at bedside this morning. She was alert awake and oriented. She denied any active complaints. Patient reports multiple black tarry stools since yesterday. Labs pending from this morning, vital stable. Continue Protonix twice a day. Physical Exam Visit Vitals BP 131/55 Pulse 72 Temp 36.4 ???C (97.5 ???F) (Temporal) Resp 13 Intake/Output Summary (Last 24 hours) at 08/16/2024 1103 Last data filed at 08/16/2024 0626 Gross per 24 hour Intake 2469.66 ml Output 1500 ml Net 969.66 ml Physical Exam Constitutional: Appearance: Normal appearance. HENT: Nose: Nose normal. Mouth/Throat: Mouth: Mucous membranes are moist. Cardiovascular: Rate and Rhythm: Normal rate and regular rhythm. Pulses: Normal pulses. Heart sounds: Normal heart sounds. Pulmonary: Effort: Pulmonary effort is normal. Breath sounds: Normal breath sounds. Abdominal: General: Abdomen is flat. Palpations: Abdomen is soft. Skin: General: Skin is warm. Neurological: General: No focal deficit present. Mental Status: She is alert. Estimated body mass index is 23.65 kg/m??? as calculated from the following: Height as of this encounter: 1.626 m (5' 4 ). Weight as of this encounter: 62.5 kg (137 lb 12.8 oz). Active Inpatient Problems Principal Problem: Elevated troponin Active Problems: COPD exacerbation ([facility]) Hypertensive disorder Hypothyroidism Paroxysmal atrial fibrillation ([facility]) History of GI bleed CKD stage 3b, GFR 30-44 ml/min ([facility]) Assessment and Plan Elevated troponin Mitral valve vegetation TTE 08/14 showed EF 55%, no regional wall motion abnormality, severe enlargement of left atrium, large vegetation measuring 2.1 cm x 1.5 cm noted on the posterior mitral valve leaflet. JOHNNIE performed 08/14/2024, it showed 1.9 cm echodensity on posterior leaflet of mitral valve. cardiac MRI pending. Blood cultures negative till date. Cardiology following. Acute hypoxic respiratory failure likely secondary to COPD exacerbation (improving) Acute exacerbation of COPD Patient reports as needed oxygen use at baseline, currently requiring 2 to 3 L nasal cannula oxygenation. Patient had productive cough with wheezing and rhonchi on auscultation. Continue ceftriaxone, azithromycin Continue DuoNeb Continue oral prednisone for 5 days. Acute on chronic anemia History of small bowel AVMs No overt bleeding today. Hemoglobin is 6.9. 1 PRBC unit transfused 08/15/2024. Hold DVT prophylaxis, patient is not on anticoagulation for A-fib. Continue to monitor for overt bleeding. Monitor hemoglobin. Continue Protonix Acute on chronic CKD stage IIIb Continue to monitor kidney function. Urinalysis unremarkable. Paroxysmal atrial fibrillation, not on anticoagulation Essential hypertension Continue amlodipine Acquired hypothyroidism Continue levothyroxine VTE Prophylaxis: Contraindicated due to acute anemia Scheduled Meds amLODIPine, 5 mg, oral, Once Daily azithromycin, 500 mg, intravenous, q24h cefTRIAXone, 2 g, intravenous, q24h ipratropium-albuteroL, 3 mL, nebulization, q6h while awake levothyroxine, 112 mcg, oral, Daily before breakfast Oxygen Therapy, , inhalation, Continuous pantoprazole, 40 mg, intravenous, q12h LOUIE polyethylene glycol, 17 g, oral, Daily predniSONE, 40 mg, oral, Daily propafenone, 150 mg, oral, BID Pertinent Investigations Hematology: Results from last 7 days Lab Units 08/15/24 2049 08/15/24 0421 08/14/24 0708 08/14/24 0444 WBC AUTO 10*3/uL -- 10.58 -- 6.87 HEMOGLOBIN g/dL 8.0* 6.9* < > 7.4* HEMATOCRIT % 25.2* 22.1* < > 23.6* MCV fL -- 92.1 -- 91.1 PLATELETS AUTO 10*3/uL -- 415* -- 402* < > = values in this interval not displayed. Chemistry: Results from last 7 days Lab Units 08/15/24 0841 08/14/24 1932 08/14/24 0445 08/13/24 1811 SODIUM mmol/L 135* -- 135* 134* POTASSIUM mmol/L 4.4 -- 4.9 4.7 CHLORIDE mmol/L 101 -- 104 101 CO2 mmol/L 28 -- 27 25 BUN mg/dL 49* -- 39* 37* CREATININE mg/dL 1.73* -- 1.36* 1.44* GLUCOSE mg/dL 126* -- 128* 152* MAGNESIUM mg/dL -- 2.0 -- 1.8* CALCIUM mg/dL 8.7 -- 8.9 9.0 Results from last 7 days Lab Units 08/13/24 1811 AST U/L 11* ALT U/L 6* ALK PHOS U/L 83 BILIRUBIN TOTAL mg/dL 0.3 BILIRUBIN DIRECT mg/dL 0.0 Historical Value (more content not included)... [facility] 08-16-2024 Note Attestation signed by Fabio Hernandez MD at 08/16/2024 11:16 AM By using the attestations below, the signing clinician agrees that I have read and verify that the documentation has been personally reviewed by me and ensure that the documentation accurately reflects the encounter. GC: I personally saw this patient on the day of the encounter, performed the trinh portion(s) of the service and participated in the management and confirm the resident's documentation. Please note there may be an additional personal documentation from me. Additional Comments: Plan for EGD/push/colonoscopy tomorrow. Gastroenterology/Hepatology Progress Note IDENTIFYING DATA PATIENT: Terri Newton ADMIT DATE: 08/13/2024 TIME OF EVALUATION: 08/16/2024 10:38 AM Reason for Consult: Melena Admitting Physician: James Olivarez MD SUBJECTIVE/INTERVAL HISTORY Terri Newton's overnight events were reviewed. Patient was seen and examined today. Afebrile and hemodynamically stable. Endorses multiple black tarry bowel movements. No hematochezia. No abdominal pain. No nausea or vomiting. OBJECTIVE MEDICATIONS SCHEDULED: amLODIPine, 5 mg, oral, Once Daily azithromycin, 500 mg, intravenous, q24h cefTRIAXone, 2 g, intravenous, q24h ipratropium-albuteroL, 3 mL, nebulization, q6h while awake levothyroxine, 112 mcg, oral, Daily before breakfast Oxygen Therapy, , inhalation, Continuous pantoprazole, 40 mg, intravenous, q24h LOUIE polyethylene glycol, 17 g, oral, Daily predniSONE, 40 mg, oral, Daily propafenone, 150 mg, oral, BID PRNs: acetaminophen, 650 mg, q6h PRN benzonatate, 200 mg, TID PRN melatonin, 5 mg, Nightly PRN ondansetron ODT, 4 mg, q8h PRN Or ondansetron, 4 mg, q6h PRN Physical VITALS: BP 131/55 Pulse 72 Temp 36.4 ???C (97.5 ???F) (Temporal) Resp 13 Ht 1.626 m (5' 4 ) Wt 62.5 kg (137 lb 12.8 oz) SpO2 97% BMI 23.65 kg/m??? GEN: Alert and oriented x3, NAD HEENT: Atraumatic, normocephalic CV: Regular rate and rhythm PULM: Breathing comfortably ABD: Soft, non-tender, non-distended NEURO: Moves all 4 extremities spontaneously LABS AND IMAGING CBC: Results from last 7 days Lab Units 08/15/24 2049 08/15/24 0421 08/14/24 1932 08/14/24 0708 08/14/24 0444 08/13/24 2332 08/13/24 1811 WBC AUTO 10*3/uL -- 10.58 -- -- 6.87 -- 6.20 RBC AUTO 10*6/uL -- 2.40* -- -- 2.59* -- 2.85* HEMOGLOBIN g/dL 8.0* 6.9* 7.9* < > 7.4* < > 8.1* HEMATOCRIT % 25.2* 22.1* 25.1* < > 23.6* < > 25.3* MCV fL -- 92.1 -- -- 91.1 -- 88.8 RDW % -- 16.2* -- -- 15.8* -- 15.7* PLATELETS AUTO 10*3/uL -- 415* -- -- 402* -- 424* < > = values in this interval not displayed. PT/INR BMP: Results from last 7 days Lab Units 08/15/24 0841 08/14/24 0445 08/13/24 1811 SODIUM mmol/L 135* 135* 134* POTASSIUM mmol/L 4.4 4.9 4.7 CHLORIDE mmol/L 101 104 101 BUN mg/dL 49* 39* 37* CREATININE mg/dL 1.73* 1.36* 1.44* EGFR mL/min/1.73m*2 29.9* 39.9* 37.2* GLUCOSE mg/dL 126* 128* 152* LFTs: Results from last 7 days Lab Units 08/13/24 1811 BILIRUBIN TOTAL mg/dL 0.3 BILIRUBIN DIRECT mg/dL 0.0 ALK PHOS U/L 83 AST U/L 11* ALT U/L 6* ALBUMIN g/dL 3.8 TOTAL PROTEIN g/dL 7.2 B12/Folate/Iron studies: No results found for: [id number] , FOLATE , IRON , TIBC , UIBC , IRONSAT , FERRITIN Viral Hepatitis No results found for: HEPAIGM , HAV , HEPBSAG , HEPBSAB , HEPBEAB , HEPBIGM , HEPBCAB , HEPBCOREAB , HBVNAT , HCVSCR , HEPCAB , HCVNAT , HCVPCR , HCVTMA Liver workup No results found for: PANKAJ , SMOOTHMUSCAB , CERULOPLSM , [id number] , TTGA , IGA , TSH , FREET4 , AFP Pancreatitis Lab Results Component Value Date CALCIUM 8.7 08/15/2024 IMAGING: XR chest 1 view [[id number]] Collected: 08/13/242320 Order Status: Completed Updated: 08/13/242322 Narrative: Single view chest History: Difficulty breathing, shortness of breath Comparison: None Findings: Single portable view of the chest. No focal opacity, effusion or pneumothorax. Cardiomediastinal silhouette is within normal limits. Atherosclerotic thoracic aorta. Heavy mitral valve annular calcifications. Impression: Impression: No acute process identified. Electronically signed: Marcelo Justice. ASSESSMENT AND PLAN Terri Newton is a 79 y.o. female with a known history significant for recurrent GI bleed most likely secondary to multiple AVMs in the small bowel as seen on the VCE as reported by the patient, A-fib not on anticoagulation at home, CKD and COPD was admitted to the hospital as a case of shortness of breath most likely secondary to acute exacerbation of COPD. Our GI service was consulted for melena on/off of 3 weeks duration prior to her presentation. Assessment Melena: Patient endors (more content not included)... [facility] 08-16-2024 Note Attestation signed by Suzi Moreno MD at 08/16/2024 3:20 PM I personally saw and examined the patient on the same date of service as resident/fellow Dr carcamo. I discussed the findings and therapeutic plan with the resident/fellow Dr Carcamo. I agree with the documentation, except for any edits/updates below. Teaching Physician's Revisions: None Cardiac MRI tomorrow to evaluate the echodensity at the base of posterior mitral valve leaflet Regarding the mild elevation of troponin, the patient did not have any chest pain but we should evaluate for ischemia with a Lexiscan stress test probably as outpatient when she recovers from her acute respiratory illness. Suzi Moreno MD, [facility] Cardiology Progress Note Subjective Subjective: Patient was seen and examined. Reported feeling well. No chest pain, or shortness of breath. No abdominal pain, nausea, or vomiting. No orthopnea or paroxysmal nocturnal dyspnea. No lower leg swelling. No acute events overnight. Objective Current Facility-Administered Medications: acetaminophen (Tylenol) tablet 650 mg, 650 mg, oral, q6h PRN, Carmen Anderson NP amLODIPine (Norvasc) tablet 5 mg, 5 mg, oral, Once Daily, Carmen Anderson ENTERTAINER OR VARIETY ARTIST, 5 mg at 08/16/24 0841 azithromycin IVPB 500 mg in NS 255 mL, 500 mg, intravenous, q24h, James Olivarez MD, Stopped at 08/15/24 2222 benzonatate (Tessalon) capsule 200 mg, 200 mg, oral, TID PRN, Samantha Sosa MD, 200 mg at 08/14/24 0617 cefTRIAXone (Rocephin) IVPB 2 g in NS 50 mL (Mini-Bag Plus), 2 g, intravenous, q24h, James Olivarez MD, Stopped at 08/15/242151 ipratropium-albuteroL (Duo-Neb) 0.5-2.5 mg/3 mL nebulizer solution 3 mL, 3 mL, nebulization, q6h while awake, Carmen Anderson, ENTERTAINER OR VARIETY ARTIST, 3 mL at 08/16/24 07 levothyroxine (Synthroid, Levoxyl) tablet 112 mcg, 112 mcg, oral, Daily before breakfast, Carmen Anderson, ENTERTAINER OR VARIETY ARTIST, 112 mcg at 08/16/24 0611 melatonin tablet 5 mg, 5 mg, oral, Nightly PRN, Carmen Anderson, ENTERTAINER OR VARIETY ARTIST ondansetron ODT (Zofran-ODT) disintegrating tablet 4 mg, 4 mg, oral, q8h PRN OR ondansetron HCl (PF) (Zofran) injection 4 mg, 4 mg, intravenous, q6h PRN, Carmen Anderson, ENTERTAINER OR VARIETY ARTIST Oxygen Therapy, , inhalation, Continuous, Carmen Anderson ENTERTAINER OR VARIETY ARTIST, Oxygen On at 08/16/24 0728 pantoprazole (ProtoNix) injection 40 mg, 40 mg, intravenous, q24h LOUIE, Carmen Anderson, ENTERTAINER OR VARIETY ARTIST, 40 mg at 08/16/24 0841 polyethylene glycol (Glycolax) packet 17 g, 17 g, oral, Daily, Kiran Harmon MD, 17 g at 08/16/24 0841 predniSONE (Deltasone) tablet 40 mg, 40 mg, oral, Daily, James Olivarez MD, 40 mg at 08/16/24 0841 propafenone (Rythmol) tablet 150 mg, 150 mg, oral, BID, Carmen Anderson NP, 150 mg at 08/16/24 0840 Objective: Patient Vitals for the past 24 hrs: BP Temp Temp src Pulse Resp SpO2 Weight 08/16/24 0841 131/55 -- -- -- -- -- -- 08/16/24 0728 -- -- -- 66 18 97 % -- 08/16/24 0543 -- -- -- -- -- -- 62.5 kg (137 lb 12.8 oz) 08/16/24 0400 (!) 123/43 -- -- 53 14 96 % -- 08/15/241999 (!) 111/96 36.6 ???C (97.9 ???F) Temporal 59 16 93 % -- 08/15/24 1953 -- -- -- 64 15 94 % -- 08/15/24 1825 121/51 36.7 ???C (98.1 ???F) Temporal 64 21 94 % -- 08/15/24 1545 (!) 126/49 36.4 ???C (97.6 ???F) Temporal 65 17 -- -- 08/15/24 1411 93/76 36.7 ???C (98.1 ???F) Temporal -- -- 96 % -- 08/15/24 1409 -- -- -- 72 21 95 % -- 08/15/24 1408 122/58 36.7 ???C (98.1 ???F) Temporal 67 18 95 % -- 08/15/24 1400 133/53 -- -- 64 15 95 % -- 08/15/24 1357 -- 36.3 ???C (97.4 ???F) -- -- -- -- -- 08/15/24 1353 134/71 36.3 ???C (97.4 ???F) Temporal 71 24 94 % -- 08/15/24 1305 -- 36.3 ???C (97.4 ???F) -- -- -- -- -- 08/15/24 1256 (!) 127/45 36.3 ???C (97.3 ???F) Temporal 57 17 94 % -- Physical Examination: Physical Exam Constitutional: General: She is not in acute distress. Appearance: Normal appearance. She is not ill-appearing. HENT: Head: Normocephalic and atraumatic. Cardiovascular: Rate and Rhythm: Normal rate and regular rhythm. Heart sounds: Normal heart sounds. No murmur heard. Pulmonary: Breath sounds: Normal breath sounds. No wheezing or rales. Abdominal: Palpations: Abdomen is soft. Tenderness: There is no abdominal tenderness. Musculoskeletal: Right lower leg: No edema. Left lower leg: No edema. Skin: General: Skin is warm and dry. Findings: No erythema or rash. Neurological: Mental Status: She is alert and oriented to person, place, and time. Mental status is at baseline. Relevant Lab Results Encounter Date: 08/13/24 ECG 12 lead Result Value Ventricular Rate 56 Atrial Rate 56 PA Interval 234 QRS DURATION 102 QT Interval 452 QTC CALCULATION(BAZETT) 436 P [place] 89 R-[place] 69 T Wave [place] 68 Impression Sinus bradycardia with sinus arrhythmia with 1st degree A-V block Anterior infarct , age undetermined Abnormal ECG No previous ECGs available Confirmed by C (more content not included)... [facility] 08-15-2024 Note Hospital Medicine Daily Progress Note - 08/15/2024 1:15 PM; Room: [address] [place] [address] Admission: 08/13/2024 4:26 PM; Length of stay: 2 days THE HOSPITALIST TEAM PREFERS TO USE [employer] FOR NON-URGENT COMMUNICATION 7AM-7PM. IF I DO NOT RESPOND WITHIN 20 MINUTES OR URGENT MATTERS, PLEASE CALL THROUGH THE COMBINATION OPERATOR. FROM 7PM-7AM, PLEASE PAGE [phone](COVR). Code Status: Full Code Barriers to Discharge: Acute kidney injury, cardiac MRI, acute anemia Expected Discharge Date: 2 to 3 days Discharge Destination: home Overview Patient is seen for evaluation and management of elevated troponin. Subjective She was seen and examined at bedside this morning. She was alert awake and oriented. She denied any active complaints. Physical Exam Visit Vitals BP 128/53 (BP Location: Left arm, Patient Position: Standing) Pulse 55 Temp 36.3 ???C (97.4 ???F) Resp 18 Intake/Output Summary (Last 24 hours) at 08/15/2024 1315 Last data filed at 08/15/2024 1159 Gross per 24 hour Intake 905 ml Output 400 ml Net 505 ml Physical Exam Constitutional: Appearance: Normal appearance. HENT: Nose: Nose normal. Mouth/Throat: Mouth: Mucous membranes are moist. Cardiovascular: Rate and Rhythm: Normal rate and regular rhythm. Pulses: Normal pulses. Heart sounds: Normal heart sounds. Pulmonary: Effort: Pulmonary effort is normal. Breath sounds: Normal breath sounds. Abdominal: General: Abdomen is flat. Palpations: Abdomen is soft. Skin: General: Skin is warm. Neurological: General: No focal deficit present. Mental Status: She is alert. Estimated body mass index is 23.07 kg/m??? as calculated from the following: Height as of this encounter: 1.626 m (5' 4 ). Weight as of this encounter: 61 kg (134 lb 6.4 oz). Active Inpatient Problems Principal Problem: Elevated troponin Active Problems: COPD exacerbation (CMS/[facility]) Hypertensive disorder Hypothyroidism Paroxysmal atrial fibrillation (CMS/[facility]) History of GI bleed CKD stage 3b, GFR 30-44 ml/min ([facility]) Assessment and Plan Elevated troponin Mitral valve vegetation TTE 08/14 showed EF 55%, no regional wall motion abnormality, severe enlargement of left atrium, large vegetation measuring 2.1 cm x 1.5 cm noted on the posterior mitral valve leaflet. JOHNNIE performed , cardiac MRI pending. Blood cultures negative till date. Cardiology following. Acute hypoxic respiratory failure likely secondary to COPD exacerbation (improving) Acute exacerbation of COPD Patient reports as needed oxygen use at baseline, currently requiring 2 to 3 L nasal cannula oxygenation. Patient had productive cough with wheezing and rhonchi on auscultation. Continue ceftriaxone, azithromycin Continue DuoNeb Switch Solu-Medrol to oral prednisone. Acute on chronic anemia History of small bowel AVMs No overt bleeding today. Hemoglobin is 6.9. 1 PRBC unit ordered. Hold DVT prophylaxis, patient is not on anticoagulation for A-fib. Continue to monitor for overt bleeding. Monitor hemoglobin. Continue Protonix Acute on chronic CKD stage IIIb Continue to monitor kidney function. Order urinalysis, urine microscopy. Paroxysmal atrial fibrillation, not on anticoagulation Essential hypertension Continue amlodipine Acquired hypothyroidism Continue levothyroxine VTE Prophylaxis: Contraindicated due to acute anemia Scheduled Meds amLODIPine, 5 mg, oral, Once Daily azithromycin, 500 mg, intravenous, q24h cefTRIAXone, 2 g, intravenous, q24h ipratropium-albuteroL, 3 mL, nebulization, q6h while awake levothyroxine, 112 mcg, oral, Daily before breakfast methylPREDNISolone sod suc (PF), 40 mg, intravenous, Daily Oxygen Therapy, , inhalation, Continuous pantoprazole, 40 mg, intravenous, q24h LOUIE polyethylene glycol, 17 g, oral, Daily propafenone, 150 mg, oral, BID sodium chloride, 20 mL/hr, Last Rate: 20 mL/hr (08/15/24 1257) Pertinent Investigations Hematology: Results from last 7 days Lab Units 08/15/24 0421 08/14/24 1932 08/14/24 0708 08/14/24 0444 WBC AUTO 10*3/uL 10.58 -- -- 6.87 HEMOGLOBIN g/dL 6.9* 7.9* < > 7.4* HEMATOCRIT % 22.1* 25.1* < > 23.6* MCV fL 92.1 -- -- 91.1 PLATELETS AUTO 10*3/uL 415* -- -- 402* < > = values in this interval not displayed. Chemistry: Results from last 7 days Lab Units 08/15/24 0841 08/14/24 19308/14/24 0445 08/13/24 1811 SODIUM mmol/L 135* -- 135* 134* POTASSIUM mmol/L 4.4 -- 4.9 4.7 CHLORIDE mmol/L 101 -- 104 101 CO2 mmol/L 28 -- 27 25 BUN mg/dL 49* -- 39* 37* CREATININE mg/dL 1.73* -- 1.36* 1.44* GLUCOSE mg/dL 126* -- 128* 152* MAGNESIUM mg/dL -- 2.0 -- 1.8* CALCIUM mg/dL 8.7 -- 8.9 9.0 Results from last 7 days Lab Units 08/13/24 1811 AST U/L 11* ALT U/L 6* ALK PHOS U/L 83 BILIRUBIN TOTAL mg/dL 0.3 BILIRUBIN DIRECT mg/dL 0.0 Historical Values: (Includes values prior to this admission) No results found for: PREALBUMIN , TSH , (more content not included)... [facility] 08-15-2024 Note Attestation signed by Suzi Moreno MD at 08/15/2024 8:58 PM I personally saw and examined the patient on the same date of service as resident/fellow Dr carcamo. I discussed the findings and therapeutic plan with the resident/fellow Dr Carcamo. I agree with the documentation, except for any edits/updates below. Teaching Physician's Revisions: None Suzi Moreno MD, [facility] Cardiology Progress Note Subjective Subjective: Patient was seen and examined. Reported feeling well. No chest pain, or shortness of breath. No abdominal pain, nausea, or vomiting. No orthopnea or paroxysmal nocturnal dyspnea. No lower leg swelling. No acute events overnight. Objective Current Facility-Administered Medications: acetaminophen (Tylenol) tablet 650 mg, 650 mg, oral, q6h PRN, Carmen kl, ENTERTAINER OR VARIETY ARTIST amLODIPine (Norvasc) tablet 5 mg, 5 mg, oral, Once Daily, Carmensoren Caponekl, ENTERTAINER OR VARIETY ARTIST, 5 mg at 08/14/24 1009 azithromycin IVPB 500 mg in NS 255 mL, 500 mg, intravenous, q24h, Carmen Anderson, ENTERTAINER OR VARIETY ARTIST, Stopped at 08/14/24 2254 benzonatate (Tessalon) capsule 200 mg, 200 mg, oral, TID PRN, Samantha Sosa MD, 200 mg at 08/14/24 0617 cefTRIAXone (Rocephin) IVPB 2 g in NS 50 mL (Mini-Bag Plus), 2 g, intravenous, q24h, Carmen Anderson, ENTERTAINER OR VARIETY ARTIST, Stopped at 08/15/24 0015 ipratropium-albuteroL (Duo-Neb) 0.5-2.5 mg/3 mL nebulizer solution 3 mL, 3 mL, nebulization, q6h while awake, Carmensoren Anderson, ENTERTAINER OR VARIETY ARTIST, 3 mL at 08/14/242014 levothyroxine (Synthroid, Levoxyl) tablet 112 mcg, 112 mcg, oral, Daily before breakfast, Carmensoren Anderson, ENTERTAINER OR VARIETY ARTIST, 112 mcg at 08/15/24623 melatonin tablet 5 mg, 5 mg, oral, Nightly PRN, Carmen Pirkl, ENTERTAINER OR VARIETY ARTIST methylPREDNISolone sod suc (PF) (SOLU-Medrol) 40 mg injection 40 mg, 40 mg, intravenous, Daily, Carmen Pirkl, ENTERTAINER OR VARIETY ARTIST, 40 mg at 08/13/242226 ondansetron ODT (Zofran-ODT) disintegrating tablet 4 mg, 4 mg, oral, q8h PRN OR ondansetron HCl (PF) (Zofran) injection 4 mg, 4 mg, intravenous, q6h PRN, Carmen Pirkl, ENTERTAINER OR VARIETY ARTIST Oxygen Therapy, , inhalation, Continuous, Carmen Pirkl, ENTERTAINER OR VARIETY ARTIST, Oxygen On at 08/14/242008 pantoprazole (ProtoNix) injection 40 mg, 40 mg, intravenous, q24h LOUIE, Carmen Pirkl, ENTERTAINER OR VARIETY ARTIST, 40 mg at 08/13/242225 propafenone (Rythmol) tablet 150 mg, 150 mg, oral, BID, Carmen Pirkl, ENTERTAINER OR VARIETY ARTIST, 150 mg at 08/14/242153 Objective: Patient Vitals for the past 24 hrs: BP Temp Temp src Pulse Resp SpO2 Weight 08/15/24 0725 128/53 36.3 ???C (97.3 ???F) Temporal 55 18 99 % -- 08/15/24 0635 -- -- -- -- -- -- 61 kg (134 lb 6.4 oz) 08/15/24 0500 -- -- -- -- -- -- 57.9 kg (127 lb 9.6 oz) 08/15/24 0400 (!) 115/49 -- -- 51 -- 100 % -- 08/15/24 0000 (!) 100/37 -- -- 61 17 97 % -- 08/14/242014 -- -- -- 64 19 98 % -- 08/14/242008 (!) 109/45 36.3 ???C (97.3 ???F) Temporal 57 19 94 % -- 08/14/24 1709 120/50 -- -- 58 16 97 % -- 08/14/24 1657 121/50 -- -- 58 20 94 % -- 08/14/24 1654 120/50 -- -- 60 21 95 % -- 08/14/24 1651 128/62 -- -- 66 21 92 % -- 08/14/24 1650 -- -- -- 69 22 92 % -- 08/14/24 1648 136/54 -- -- 62 18 95 % -- 08/14/24 1645 134/60 -- -- 67 21 95 % -- 08/14/24 1642 130/50 -- -- 67 (!) 28 95 % -- 08/14/24 1639 (!) 126/44 -- -- 61 25 94 % -- 08/14/24 1635 (!) 135/43 -- -- 68 19 93 % -- 08/14/24 1630 162/64 -- -- 99 (!) 28 95 % -- 08/14/24 1625 146/58 -- -- 68 14 100 % -- 08/14/24 1621 149/53 -- -- 66 14 97 % -- 08/14/24 1620 145/65 -- -- 72 16 97 % -- 08/14/24 1620 149/53 -- -- 66 14 97 % -- 08/14/24 1610 142/54 -- -- 63 15 98 % -- 08/14/24 1540 140/52 -- -- 62 15 98 % -- 08/14/24 1341 -- -- -- 61 20 93 % -- 08/14/24 1149 (!) 114/47 36.2 ???C (97.2 ???F) -- 63 17 91 % -- 08/14/24 1009 (!) 126/48 -- -- -- -- -- -- 08/14/24 0912 (!) 115/47 36.6 ???C (97.9 ???F) Temporal 63 20 (!) 89 % -- 08/14/24 0903 -- -- -- 76 25 (!) 89 % -- Physical Examination: Physical Exam Constitutional: General: She is not in acute distress. Appearance: Normal appearance. She is not ill-appearing. HENT: Head: Normocephalic and atraumatic. Cardiovascular: Rate and Rhythm: Normal rate and regular rhythm. Heart sounds: Normal heart sounds. No murmur heard. Pulmonary: Breath sounds: Normal breath sounds. No wheezing or rales. Abdominal: Palpations: Abdomen is soft. Tenderness: There is no abdominal tenderness. Musculoskeletal: Right lower leg: No edema. Left lower leg: No edema. Skin: General: Skin is warm and dry. Findings: No erythema or rash. Neurological: Mental Status: She is alert and oriented to person, place, and time. Mental status is at baseline. Relevant Lab Results Encounter Date: 08/13/24 ECG 12 lead Result Value Ventricular Rate 56 Atrial Rate 56 PA Interval 234 QRS DURATION 102 QT Interval 452 QTC CALCULATION(BAZETT) 436 P [place] 89 R-[place] 69 T Wave [place] 68 Impression Sinus bradycardia with sinus arrhythmia with 1st degree A- (more content not included)... [facility] 08-14-2024 Note Patient is off unit for testing at this time. [facility] 08-14-2024 Note Hospital Medicine Daily Progress Note - 08/14/2024 1:17 PM; Room: [address] [place] [address] Admission: 08/13/2024 4:26 PM; Length of stay: 1 days THE HOSPITALIST TEAM PREFERS TO USE [employer] FOR NON-URGENT COMMUNICATION 7AM-7PM. IF I DO NOT RESPOND WITHIN 20 MINUTES OR URGENT MATTERS, PLEASE CALL THROUGH THE COMBINATION OPERATOR. FROM 7PM-7AM, PLEASE PAGE [phone](COVR). Code Status: Full Code Barriers to Discharge: JOHNNIE 1 to 2 days Expected Discharge Date: Discharge Destination: home Overview Patient is seen for evaluation and management of elevated troponin. Subjective She was seen and examined at bedside this morning. She was alert awake and oriented. She denied any active complaints. Patient reported that she has been having nonproductive cough for the past 1 week, initially she thought she had acquired any viral infection. When patient's symptoms did not resolve and she developed worsening shortness of breath, she presented to the hospital. Physical Exam Visit Vitals BP (!) 114/47 (BP Location: Left arm, Patient Position: Lying) Pulse 63 Temp 36.2 ???C (97.2 ???F) Resp 17 Intake/Output Summary (Last 24 hours) at 08/14/2024 1317 Last data filed at 08/14/2024 0230 Gross per 24 hour Intake 745 ml Output -- Net 745 ml Physical Exam Constitutional: Appearance: Normal appearance. HENT: Nose: Nose normal. Mouth/Throat: Mouth: Mucous membranes are moist. Cardiovascular: Rate and Rhythm: Normal rate and regular rhythm. Pulses: Normal pulses. Heart sounds: Normal heart sounds. Pulmonary: Effort: Pulmonary effort is normal. Breath sounds: Normal breath sounds. Abdominal: General: Abdomen is flat. Palpations: Abdomen is soft. Skin: General: Skin is warm. Neurological: General: No focal deficit present. Mental Status: She is alert. Estimated body mass index is 23.24 kg/m??? as calculated from the following: Height as of this encounter: 1.626 m (5' 4 ). Weight as of this encounter: 61.4 kg (135 lb 6.4 oz). Active Inpatient Problems Principal Problem: Elevated troponin Active Problems: COPD exacerbation ([facility]) Hypertensive disorder Hypothyroidism Paroxysmal atrial fibrillation ([facility]) History of GI bleed CKD stage 3b, GFR 30-44 ml/min ([facility]) Assessment and Plan Elevated troponin Mitral valve vegetation TTE 08/14 showed EF 55%, no regional wall motion abnormality, severe enlargement of left atrium, large vegetation measuring 2.1 cm x 1.5 cm noted on the posterior mitral valve leaflet. Blood cultures ordered. Plan for JOHNNIE today. Cardiology following. Acute hypoxic respiratory failure likely secondary to COPD exacerbation Acute exacerbation of COPD Patient reports as needed oxygen use at baseline, currently requiring 2 to 3 L nasal cannula oxygenation. Patient has productive cough with wheezing and rhonchi on auscultation. Continue ceftriaxone, azithromycin Continue DuoNeb Continue Solu-Medrol, switch to oral steroids after JOHNNIE. Acute on chronic anemia History of small bowel AVMs Hold DVT prophylaxis, patient is not on anticoagulation for A-fib. Continue to monitor for overt bleeding. Monitor hemoglobin. Continue Protonix Acute on chronic CKD stage IIIb Continue to monitor kidney function. CTA could not be completed due to elevated creatinine. Monitor for improvement of respiratory status. Paroxysmal atrial fibrillation, not on anticoagulation Essential hypertension Continue amlodipine Acquired hypothyroidism Continue levothyroxine VTE Prophylaxis: Contraindicated due to acute anemia Scheduled Meds amLODIPine, 5 mg, oral, Once Daily azithromycin, 500 mg, intravenous, q24h cefTRIAXone, 2 g, intravenous, q24h furosemide, 40 mg, oral, Once Daily ipratropium-albuteroL, 3 mL, nebulization, q6h while awake levothyroxine, 112 mcg, oral, Daily before breakfast methylPREDNISolone sod suc (PF), 40 mg, intravenous, Daily pantoprazole, 40 mg, intravenous, q24h LOUIE propafenone, 150 mg, oral, BID Pertinent Investigations Hematology: Results from last 7 days Lab Units 08/14/24 0708 08/14/24 0444 08/13/24 2332 08/13/24 1811 WBC AUTO 10*3/uL -- 6.87 -- 6.20 HEMOGLOBIN g/dL 7.6* 7.4* < > 8.1* HEMATOCRIT % 24.2* 23.6* < > 25.3* MCV fL -- 91.1 -- 88.8 PLATELETS AUTO 10*3/uL -- 402* -- 424* < > = values in this interval not displayed. Chemistry: Results from last 7 days Lab Units 08/14/24 0445 08/13/24 1811 SODIUM mmol/L 135* 134* POTASSIUM mmol/L 4.9 4.7 CHLORIDE mmol/L 104 101 CO2 mmol/L 27 25 BUN mg/dL 39* 37* CREATININE mg/dL 1.36* 1.44* GLUCOSE mg/dL 128* 152* MAGNESIUM mg/dL -- 1.8* CALCIUM mg/dL 8.9 9.0 Results from last 7 days Lab Units 08/13/24 1811 AST U/L 11* ALT U/L 6* ALK PHOS U/L 83 BILIRUBIN TOTAL mg/dL 0.3 BILIRUBIN DIRECT mg/dL 0.0 Historical Values: (Includes values prior to this admission) No results found for: PREALBUMIN , TSH , T3FREE , FREET (more content not included)... [facility] 08-14-2024 Note 08/14/24 1015 Admission Assessment Questions Verify insurance with patient Yes Do you understand medical disease or what brought you into the hospital? Yes Who is your current PCP? Jayy Lomas Can I schedule a follow up appointment for you at the time of discharge? Yes Do you understand why you are taking your current medications? Yes Are you taking your medications as prescribed? Yes Did patient provide teach back? No Pharmacy Bedside Delivery Status Interested Does the patient have a case sealer assigned to them through their insurance? No Living Arrangement (Current/Prior to Hospitalization) Home self care (Lives at home alone) Does the patient have history of HHC or SNF? Yes Assistive Device Not applicable Patient's goal for discharge Plan is to discharge home Was patient reminded that goal for discharge is 11am? Yes Does the patient have transportation at discharge? Yes Type of Residence Private residence Is PT/OT appropriate? No Is PT/OT ordered? No Is SW consult appropriate? No Is SW consult ordered? No Do you understand the benefits of MyChart? Yes Were you able to send link and activate MyChart? No [facility] 08-13-2024 Note Hospital Medicine History and Physical 08/13/2024 6:16 PM THE HOSPITALIST TEAM PREFERS TO USE [employer] FOR NON-URGENT COMMUNICATION 7AM-7PM. IF I DO NOT RESPOND WITHIN 20 MINUTES OR URGENT MATTERS, PLEASE CALL THROUGH THE COMBINATION OPERATOR. FROM 7PM-7AM, PLEASE PAGE [phone](COVR). Chief Complaint Direct admission from [facility] with elevated troponin History of Present Illness Terri Newton is an 79 y.o. female who came from home with past medical history of hypertension, hypothyroidism, paroxysmal atrial fibrillation not on anticoagulation 2/2 recurrent GI bleeding, COPD on O2 PRN, CKD 3b presents as a direct admission from [facility] with chief complaint of SOB. Patient reports shortness of breath, cough with white sputum production for the last week. She reports that she went to her PCP who prescribed her antibiotics and she has been taking them since. She also reports trying her DuoNeb. States that her symptoms continued to worsen which prompted her to go to the emergency department. She also reports a history of recurrent GI bleed and states that she has had dark stools over the last 3 weeks. Labs are completed at [facility] showing WBC 7.0, RBC 2.83, hemoglobin 8.1, hematocrit 26.2, platelet count 405, INR 1.01, D-dimer 1.02, sodium 143, potassium 5.0, BUN 37, creatinine 1.9, troponin 1910 with a repeat troponin of 1845. EKG was completed showing sinus bradycardia with first-degree AV block. Dr. Bernardo was contacted by [facility] emergency department he states to transfer patient for further evaluation. Patient denying all chest pain. CXR was completed showing no acute process. Upon arrival to [facility], patient is still extremely short of breath with wheezes and rhonchi on examination. She is requiring 2 L of oxygen to maintain an oxygen saturation above 90%. Troponin has resulted at 0.41. I personally spoke with Dr. Connolly from cardiology about this patient. Will hold off on heparin drip overnight until patient can be further evaluated by GI in a.m. due to dark stools. Patient continues to deny chest pain. Review of System and Physical Exam Temp: [36.7 ???C (98.1 ???F)] 36.7 ???C (98.1 ???F) Heart Rate: [60] 60 Resp: [17] 17 BP: (153)/(67) 153/67 Physical Exam Vitals reviewed. Constitutional: Appearance: She is normal weight. HENT: Mouth/Throat: Pharynx: Oropharynx is clear. Eyes: Conjunctiva/sclera: Conjunctivae normal. Cardiovascular: Rate and Rhythm: Bradycardia present. Pulses: Normal pulses. Heart sounds: Normal heart sounds. Pulmonary: Breath sounds: Wheezing and rhonchi present. Abdominal: General: Abdomen is flat. Bowel sounds are normal. Palpations: Abdomen is soft. Musculoskeletal: General: Normal range of motion. Skin: General: Skin is warm and dry. Capillary Refill: Capillary refill takes less than 2 seconds. Neurological: General: No focal deficit present. Mental Status: She is alert and oriented to person, place, and time. Mental status is at baseline. Psychiatric: Mood and Affect: Mood normal. Review of Systems Constitutional: Positive for chills, diaphoresis and fatigue. Negative for appetite change and fever. HENT: Positive for congestion. Negative for dental problem, drooling and ear discharge. Respiratory: Positive for cough, shortness of breath and wheezing. Cardiovascular: Negative for chest pain and palpitations. Gastrointestinal: Positive for blood in stool. Negative for abdominal pain, constipation, diarrhea, nausea and vomiting. Genitourinary: Negative for difficulty urinating and dyspareunia. Musculoskeletal: Negative for arthralgias and back pain. Skin: Negative for color change and pallor. Neurological: Negative for dizziness, seizures, facial asymmetry, light-headedness, numbness and headaches. Psychiatric/Behavioral: Negative for agitation, behavioral problems, confusion and decreased concentration. Problem List Principal Problem: Other chest pain Active Problems: Chronic obstructive lung disease (CMS/HCC) Hypertensive disorder Hypothyroidism Paroxysmal atrial fibrillation ([facility]) History of GI bleed Elevated troponin Chest pain Assessment and Plan Terri Newton is an 79 y.o. female who came from home with past medical history of hypertension, hypothyroidism, paroxysmal atrial fibrillation not on anticoagulation 2/2 recurrent GI bleeding, COPD on O2 PRN, CKD 3b presents as a direct admission from [facility] with chief complaint of SOB. #Elevated troponin #Elevated D-dimer -Troponin 1910-> 1845 at [facility], troponin 0.41 at [facility] -D-dimer elevated at 0.71, however, unable to complete CTA at this time due to elevated creatinine level -VQ scan ordered for a.m. -Holding on heparin infusion at this time secondary to possible GI bleed -Echocardiogram in a.m. -EKG shows sinus bradycardia with first-degree AV block -N.p.o. at midnight for possi (more content not included)... [facility] 08-07-2024 History of Present illness Narrative Images from the original note were not included. HPI Med Refill Additional comments: JON--DM ELROY Last edited by Cheyenne Ortiz LPN on 08/07/2024 1:15 PM. Subjective Patient ID: Terri Newton is a 79 y.o. female who presents for Med Refill (ROBAXIN--DM ELROY) and URI. Upper Respiratory Infection Patient complains [...] risk for fall Atrial fibrillation (CMS/HCC) In [facility]. Had CV done 4-5 years ago Not [...] follow-ups on file. documented in this encounter [facility] 07-03-2024 History of Present illness Narrative Images from the original note were not included. Subjective Patient ID: Terri Nweton is a 79 y.o. female who presents [...] risk for fall Atrial fibrillation (CMS/HCC) In [facility]. Had CV done 4-5 years ago Not [...] vaccination - Influenza, high-dose seasonal, quadrivalent, PF ([id number]) (Fluzone High Dose [place] 0.7mL dose) Follow up in about 6 months (around 12/31/2024) for Routine F/U. 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 F/u hgb on 07/03/21 found her hgb [...] ALT 51 07/09/2023 (more content not included)... [facility] 10-14-2023 Note Patient here for 6 m [...] All other systems reviewed and are negative. [facility] 10-14-2023 Note Cardiology [facility] Note Subjective Terri Newton is a [...] follows with Dr. Camargo with hematology in [place]. She is no longer having blood in her stool. Her hgb is stable. She is currently off of octreotide and iron infusions. She will see Dr. Camargo in December to see if she can continue to hold these. Denies c/o CP, dyspnea, orthopnea, PND, LE edema, dizziness/LH, palpitations, syncope. 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 Discussed she is at high risk for stroke not being on any anticoagulation. She states understanding. Re-discussed the option of an LAAO device, she remains uninterested at this time. I will reach out to her hematolog (more content not included)... [facility] 09-18-2023 Evaluation note Encounter Date Diagnosis Assessment [...] dehydration Aug, Acute cough (ICD-10 - R05.1) [employer] Other 12-17-2023 Evaluation note* Encounter Date Diagnosis [...] difficulty breathing, fever, chills, nausea, vomiting, fatigue. [employer] Other 07-19-2023 Progress note Author Bell Camargo [facility] March 10, 2023 4:39pm Note Date/Time March 10, 2023 10:3 3am [facility] [place] [id number] Hem/Onc Follow Up Note - OP Signed Patient: Terri Newton MR#: [id number] : 1945 Acct:[id number] Age/Sex: 77 / F Type: REG RCR [...] since iron infusions but followup labs at [facility] show ongoing anemia with hemoglobin 8.1, iron [...] 1 month, next f/u 4 months with ENTERTAINER OR VARIETY ARTIST or myself. 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 She notes improving energy and weekly [...] Negative for environmental allergies and food allergies. [facility] - History Attestation statement: The following information [...] to assess response to folic acid and [id number] by insurance. Again has anemia 8.9 with iron sat 8.6%--agrees to repeat infusion of Injectafer 750mg IV x 2 weeks (has been getting this about once every 4 months). 4 week f/u CBC and iron studies, then ENTERTAINER OR VARIETY ARTIST f/u with exam and labs in 4 [...] as noted above. Noted gaseous sensation, but hotel security officer stools and has not required transfusions (still [...] for coordination of care (as documented) and pyaa-fr-fddb counseling of patient and/or family. Dictated By: Bell Camargo MD DD/ 1032 Signed By: <Electronically signed by MD Bell Camargo> 03/10/23 1493 [facility] Work Phone: 1([phone]) 747-484306-21-2023 Progress note Author Nusrat Bundy [facility] February 10, 2023 4:14pm Note Date/Time January 27, 2023 2:04p [facility] [place] [id number] Hem/Onc Follow Up Note - OP Signed Patient: Terri Newton MR#: [id number] : 1945 Acct:[id number] Age/Sex: 77 / F Type: REG RCR [...] 1 month, next f/u 4 months with ENTERTAINER OR VARIETY ARTIST or myself. 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 She notes improving energy and weekly [...] to assess response to folic acid and [id number] by insurance. Again has anemia 8.9 with iron sat 8.6%--agrees to repeat infusion of Injectafer 750mg IV x 2 weeks (has been getting this about once every 4 months). 4 week f/u CBC and iron studies, then ENTERTAINER OR VARIETY ARTIST f/u with exam and labs in 4 [...] for coordination of care (as documented) and cvhg-oi-qoir counseling of patient and/or family. Dictated By: Nusrat Bundy APRN DD/ 1404 Signed By: <Electronically signed by LESLY Bundy> 02/10/23 1614 [facility] Work Phone: [phone] 949-789504-07-2023 Progress note Author Nusrat Bundy [facility] November 27, 2022 10:37am Note Date/Time November 27, 2022 10:2 9am [facility] [place] [address] Hem/Onc Follow Up Note - OP Signed Patient: Terri Newton MR#: [id number] : 1945 Acct:[id number] Age/Sex: 77 / F Type: REG RCR [...] 1 month, next f/u 4 months with ENTERTAINER OR VARIETY ARTIST or myself. 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 She notes improving energy and weekly [...] to assess response to folic acid and [id number] by insurance. Again has anemia 8.9 with iron sat 8.6%--agrees to repeat infusion of Injectafer 750mg IV x 2 weeks (has been getting this about once every 4 months). 4 week f/u CBC and iron studies, then ENTERTAINER OR VARIETY ARTIST f/u with exam and labs in 4 [...] as noted above. Noted gaseous sensation, but hotel security officer stools and has not required transfusions (still [...] for coordination of care (as documented) and mtzk-zw-kpzw counseling of patient and/or family. Dictated By: Nusrat Bundy APRN DD/ 1028 Signed By: <Electronically signed by LESLY Bundy> 11/27/22 1037 [facility] Work Phone: [phone]) 762-115501-07-2023 Progress note Author Bell Camargo [facility] August 29, 2022 10:57am Note Date/Time August 28, 2022 10 :40am [facility] at [address] [address] Hem/Onc Follow Up Note - OP Signed Patient: Terri Newton MR#: [id number] : 1945 Acct:[id number] Age/Sex: 77 / F Type: REG RCR [...] 1 month, next f/u 4 months with ENTERTAINER OR VARIETY ARTIST or myself. 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 She notes improving energy and weekly CBC over the past month shows gradually increasing hemoglobin (11/04 Hg 10.7, 12/01/2021 Hg 11). She also had f/u iron studies 11/04/2021 with normal iron saturation 23.3% with ferritin 37. She will continue monthly Octreotide IM, and I will change CBC to monthly prior to Octreotide LAR and f/u with wy 02/2022. PREVIOUS HISTORY: Original consult 10/30/2021 This [...] Negative for environmental allergies and food allergies. [facility] - History Attestation statement: The following information [...] Outside Labs: Labs reviewed from 08/25/2022 (from [facility]): Hemoglobin currently low at 8.9, iron [...] process. Impression dictated by: Marcel Grossman Jr., MaddisonOAngelica04/30/2022 4:40 PM Assessment and Plan (1) Iron [...] to assess response to folic acid and [id number] by insurance. Again has anemia 8.9 with iron sat 8.6%--agrees to repeat infusion of Injectafer 750mg IV x 2 weeks (has been getting this about once every 4 months). 4 week f/u CBC and iron studies, then ENTERTAINER OR VARIETY ARTIST f/u with exam and labs in 4 [...] as noted above. Noted gaseous sensation, but hotel security officer stools and has not required transfusions (still [...] for coordination of care (as documented) and thoa-ky-suyl counseling of patient and/or family. Dictated By: Bell Camargo MD DD/ 1040 Signed By: <Electronically signed by MD Bell Camargo> 08/29/22 1056 [facility] Work Phone: [phone] 398-255010-28-2022 Evaluation note* Encounter Date Diagnosis Assessment Notes [...] feeling could bt from the excess stool [employer] Other 10-07-2022 Progress note Author Bell Camargo [facility] May 29, 2022 7:40am Note Date/Time May 28, 2022 11 :18am [facility] at [address] [address] Hem/Onc Follow Up Note - OP Signed Patient: Terri Newton MR#: [id number] : 1945 Acct:[id number] Age/Sex: 77 / F Type: REG RCR Copies to: MD Ceasar Ferrari, DO~ Subjective Date/Time of Service: Date of Service: 05/28/2022 Time of Service: 11:17 Chief Complaint: Patient is here today for 1 month follow up visit for iron deficiency anemia and go over outside labs HPI: 05/27/2022: Terir presents for one month f/u to review [...] distension the first few days followed by hotel 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 She notes improving energy and weekly [...] Negative for environmental allergies and food allergies. [facility] - History Attestation statement: The following information [...] 11:14 04/30/22 11:14 Outside Labs: Labs from [facility] 05/25/2022: WBC 4400, ANC 2500, Hg [...] as noted above. 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 She denied increased [...] for coordination of care (as documented) and gahx-zv-nxob counseling of patient and/or family. Dictated By: Bell Camargo MD DD/ 1117 Signed By: <Electronically signed by MD Bell Camargo> 05/29/22 0740 [facility] Work Phone: [phone] 650-634309-10-2022 Progress note Author Bell Camargo [facility] May 02, 2022 11:39am Note Date/Time May 01, 2022 11:01am [facility] [place] [address] Hem/Onc Follow Up Note - OP Signed Patient: Terri Newton MR#: [id number] : 1945 Acct:[id number] Age/Sex: 77 / F Type: REG RCR [...] distension the first few days followed by hotel 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 She notes improving energy and weekly [...] Negative for environmental allergies and food allergies. [facility] - History Attestation statement: The following information [...] % (Auto) 49.3, Lymph % (Auto) 29.7, [place] % (Auto) 7.3, Eos % (Auto) 11.9, Baso % (Auto) 1.8, Neut # (Auto) 1.7 L, Lymph # (Auto) 1.0, [place] # (Auto) 0.2, Eos # (Auto) 0.4, [...] as noted above. 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 She has not [...] for coordination of care (as documented) and cvsd-fo-stpb counseling of patient and/or family. Dictated By: Bell Camargo MD DD/ 1100 Signed By: <Electronically signed by MD Bell Camargo> 05/02/22 1123 [facility] Work Phone: [phone] 138-553709-01-2022 Progress note Author Bell Camargo [facility] April 23, 2022 8:40am Note Date/Time April 23, 2022 8:30am [facility] [place] [address] Hem/Onc Follow Up Note - OP Signed Patient: Terri Newton MR#: [id number] : 1945 Acct:[id number] Age/Sex: 77 / F Type: REG RCR [...] distension the first few days followed by hotel 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 She notes improving energy and weekly CBC over the past month shows gradually increasing hemoglobin (11/04 Hg 10.7, 12/01/2021 Hg 11). She also had f/u iron studies 11/04/2021 with normal iron saturation 23.3% with ferritin 37. She will continue monthly Octreotide IM, and I will change CBC to monthly prior to Octreotide LAR and f/u with wy 02/2022. PREVIOUS HISTORY: Original consult 10/30/2021 This [...] % (Auto) N/A, Lymph % (Auto) N/A, [place] % (Auto) N/A, Eos % (Auto) N/A, Baso % (Auto) N/A, Neut # (Auto) N/A, Lymph # (Auto) N/A, [place] # (Auto) N/A, Eos # (Auto) N/A, [...] as noted above. 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 She has not [...] for coordination of care (as documented) and yneq-rh-uuga counseling of patient and/or family. Dictated By: Bell Camargo MD DD/ 9 Signed By: <Electronically signed by MD Bell Camargo> 04/23/22839 [facility] Work Phone: [phone]) [phone] Progress note Author Bell Camargo [facility] March 06, 2022 2:57pm Note Date/Time March 05, 2022 9:33 am [facility] [place] [id number] Hem/Onc Follow Up Note - OP Signed Patient: Terri Newton MR#: [id number] : 1945 Acct:[id number] Age/Sex: 76 / F Type: REG RCR [...] distension the first few days followed by hotel 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 She notes improving energy and weekly [...] + for known AVM and chronic constipation. 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 GENITOURINARY: Negative [...] as noted above. 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 She has not [...] for coordination of care (as documented) and ufag-bg-pama counseling of patient and/or family. 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 She notes improving energy and weekly [...] + for known AVM and chronic constipation. 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 GENITOURINARY: Negative for dysuria and [...] EXTREMITIES: No edema, cyanosis or clubbing. No Croetta sign. - ECOG Performance Status ECOG Score: [...] as noted above. 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 (3) Atrial fibrillation status post cardioversion (4) COPD (chronic obstructive pulmonary disease) (5) Hypertension (6) Hypothyroidism - Time with Patient Time Spent with Patient (Follow Up Visit): Less than 20 minutes - f/u labs and symptoms Coordination of Care & Counseling Time: Greater than 50% of time spent with patient was for coordination of care (as documented) and fxkw-wr-cesw counseling of patient and/or family. Dictated By: Bell Camargo MD DD/ 1055 Signed By: <Electronically signed by MD Bell Camargo> 12/04/21 2133 [facility] Work Phone: [phone] Consult note Author Bell Camargo [facility] October 31, 2021 10:35pm Note Date/Time October 30, 2021 1:2 3pm [facility] [place] [address] Hem/Onc Consult Note - OP Signed Patient: Terri Newton MR#: [id number] : 1945 Acct:[id number] Age/Sex: 76 / F Type: REG RCR [...] parenteral iron if recurrent iron deficiency anemia. [facility] - History Attestation statement: The following information [...] for coordination of care (as documented) and aune-wp-egfm counseling of patient and/or family. Dictated By: Bell Camargo MD DD/ 1323 Signed By: <Electronically signed by MD Bell Camargo> 10/31/21 9917 [facility] Work Phone: [phone] Evaluation note* Encounter Date Diagnosis Assessment Notes Treatment Notes Treatment Clinical Notes Oct, Vascular ectasia of small intestine (ICD-10 - K63.9) REFERRAL TO HEMATOLOGY ( ALREADY IN PLACE) F/U HERE PRN [employer] Other 01-13-2022 Evaluation note* Encounter Date Diagnosis Assessment Notes Treatment Notes Treatment Clinical Notes Aug, Iron deficiency anemia (ICD-10 - D50.9) [facility] Other Evaluation noteNo [facility] 25eight Other Evaluation note* Diagnosis Onset Date Resolution Status Epigastric abdominal pain ac [place] Angiodysplasia of gastrointestinal tract chronic Atrial fibrillation status post cardioversion chronic COPD (chronic obstructive pulmonary disease) chronic Hypertension chronic Hypothyroidism chronic Iron deficiency anemia [facility] Work Phone: Evaluation note* Diagnosis Onset Date Resolution Status Angiodysplasia of gastrointestinal tract chronic Atrial fibrillation status post cardioversion chronic COPD (chronic obstructive pulmonary disease) chronic Epigastric abdominal pain ch ronic Hypertension chronic Hypothyroidism chronic Iron deficiency anemia [facility] Work Phone: Evaluation note* Diagnosis Onset Date Resolution Status Angiodysplasia of gastrointestinal tract chronic Atrial fibrillation status post cardioversion chronic COPD (chronic obstructive pulmonary disease) chronic Epigastric abdominal pain ch ronic Folate deficiency anemia, unspecified chronic Hypertension chronic Hypothyroidism chronic Iron deficiency anemia [facility] Work Phone: Evaluation note* Diagnosis Hypothyroidism, unspecified (CMS/HCC) [facility] Diagnosis Onset Date Resolution Status Stage 3 chronic kidney disease acute Angiodysplasia of gastrointestinal tract chronic Atrial fibrillation status post cardioversion chronic Iron deficiency anemia [facility] Angiodysplasia of gastrointestinal tract chronic Atrial fibrillation status post cardioversion chronic COPD (chronic obstructive pulmonary disease) chronic Epigastric abdominal pain ch ronic Folate deficiency anemia, unspecified chronic Hypertension chronic Hypothyroidism chronic Iron deficiency anemia [facility] Work Phone: Evaluation note* Diagnosis Onset Date Resolution Status Angiodysplasia of gastrointestinal tract chronic Atrial fibrillation status post cardioversion chronic COPD (chronic obstructive pulmonary disease) chronic Epigastric abdominal pain ch ronic Folate deficiency anemia, unspecified chronic Hypertension chronic Hypothyroidism chronic Iron deficiency anemia [facility] Stage 3 chronic kidney disease acute Angiodysplasia of gastrointestinal tract chronic Atrial fibrillation status post cardioversion chronic Iron deficiency anemia [facility] Work Phone: Evaluation note* Diagnosis Paroxysmal [...] inoculation against influenza documented in this encounter [facility]* Diagnosis Paroxysmal atrial fibrillation (CMS/HCC)- Primary Atrial fibrillation Chronic bilateral low back pain without sciatica COPD with acute exacerbation (CMS/HCC) documented in this encounter [facility]* Diagnosis Panlobular emphysema (CMS/HCC)- Primary Other emphysema Paroxysmal atrial fibrillation (CMS/HCC) Atrial fibrillation Angiodysplasia of small intestine, except duodenum with bleeding History of GI bleed documented in this encounter [facility] note* Diagnosis Impacted cerumen of right ear- Primary Impacted cerumen Chronic kidney disease, stage 3b (HCC) (CMS/HCC) documented in this encounter [facility]* Diagnosis Panlobular emphysema (CMS/HCC)- Primary Other emphysema Paroxysmal atrial fibrillation (CMS/HCC) Atrial fibrillation Angiodysplasia of small intestine, except duodenum with bleeding Chronic kidney disease, stage 3b (HCC) (CMS/HCC) documented in this encounter [facility] note* Diagnosis Onset Date Resolution Status Admit Date Stage 3 chronic kidney disease acute December 18, 2024 2:37pm Angiodysplasia of gastrointestinal tract chronic November 2:37pm Atrial fibrillation status p ost cardioversion chronic December 18, 2024 2:37pm Iron deficiency anemia chronic Ap 2024 2:37pm Angiodysplasia of gastrointestinal tract chronic November 3:24pm Atrial fibrillation status p ost cardioversion chronic December 18, 2024 3:24pm COPD (chronic obstructive pulmonary disease) chronic December 18, 2 025 3:24pm Epigastric abdominal pain chronic December 18, 2024 3:24pm Folate deficiency anemia, unspecified chronic December 18, 2024 3:24pm Hypertension chronic December 18, 2024 3:24pm Hypothyroidism chronic November 3:24pm Iron deficiency anemia chronic Ap 2024 3:24pm [facility] Work Phone: Evaluation note* Diagnosis Paroxysmal atrial fibrillation (CMS/HCC)- Primary Atrial fibrillation Allergic urticaria Chronic kidney disease, stage 3b (HCC) (CMS/HCC) History of GI bleed Angiodysplasia of small intestine, except duodenum with bleeding Iron deficiency anemia secondary to blood loss (chronic) [facility] N[facility]ative - Reported* Type Description Date Surgical History cholecystectomy Surgical History hysterectomy [facility] 25eight Other History general Narrative - Reported* Type Description Date Medical History HYPERTENSION Surgical History cholecystectomy Surgical History hysterectomy Hospitalization History SEE ABOVE [employer] Other [employer] general Narrative - Reported* Type Description Date Medical History HYPERTENSION Medical History COPD Medical History Chronic Bronchitis Surgical History cholecystectomy Surgical History hysterectomy Hospitalization History SEE ABOVE [employer] Other Progress note Author Bell Camargo [facility] April 23, 2022 8:40am Note Date/Time April 23, 2022 8:30am [facility] [place] [address] Hem/Onc Follow Up Note - OP Signed Patient: Terri Newton MR#: [id number] : 1945 Acct:[id number] Age/Sex: 77 / F Type: REG RCR [...] distension the first few days followed by hotel 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 She notes improving energy and weekly [...] Saturation 12.0 L, Transferrin 234, Ferritin 77.8 08/26/22 08:30: Corrected WBC 5.8, Uncorrected WBC Count 5.8, RBC 2.30 L, Hgb 7.6 L, Hct 23.6 L, MCV 102.3 H, MCH 33.1, MCHC 32.4, RDW 16.2 H, Plt Count 339, MPV 8.3, Neut % (Auto) N/A, Lymph % (Auto) N/A, [place] % (Auto) N/A, Eos % (Auto) N/A, Baso % (Auto) N/A, Neut # (Auto) N/A, Lymph # (Auto) N/A, [place] # (Auto) N/A, Eos # (Auto) N/A, [...] as noted above. 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 She has not [...] for coordination of care (as documented) and oghg-az-teka counseling of patient and/or family. Dictated By: Bell Camargo MD DD/ 9 Signed By: <Electronically signed by MD Bell Camargo> 04/23/22839 [facility] Work Phone: Progress note Author Nusrat Bundy [facility] November 27, 2022 10:37am Note Date/Time November 27, 2022 10:2 9am [facility] [place] [id number] Hem/Onc Follow Up Note - OP Signed Patient: Terri Newton MR#: [id number] : 1945 Acct:[id number] Age/Sex: 77 / F Type: REG RCR [...] 1 month, next f/u 4 months with ENTERTAINER OR VARIETY ARTIST or myself. 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 She notes improving energy and weekly [...] to assess response to folic acid and [id number] by insurance. Again has anemia 8.9 with iron sat 8.6%--agrees to repeat infusion of Injectafer 750mg IV x 2 weeks (has been getting this about once every 4 months). 4 week f/u CBC and iron studies, then ENTERTAINER OR VARIETY ARTIST f/u with exam and labs in 4 [...] as noted above. 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 Dictated By: Nusrat Bundy APRN DD/ 1028 Signed By: <Electronically signed by LESLY Bundy> 11/27/22 1037 [facility] Work Phone: Progress note Author Bell Camargo [facility] March 10, 2023 4:39pm Note Date/Time March 10, 2023 10:3 3am [facility] [place] [address] Hem/Onc Follow Up Note - OP Signed Patient: Terri Newton MR#: [id number] : 1945 Acct:[id number] Age/Sex: 77 / F Type: REG RCR [...] since iron infusions but followup labs at [place] show ongoing anemia with hemoglobin 8.1, iron [...] 1 month, next f/u 4 months with ENTERTAINER OR VARIETY ARTIST or myself. 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 She notes improving energy and weekly [...] Negative for environmental allergies and food allergies. [facility] - History Attestation statement: The following information [...] to assess response to folic acid and [id number] by insurance. Again has anemia 8.9 with iron sat 8.6%--agrees to repeat infusion of Injectafer 750mg IV x 2 weeks (has been getting this about once every 4 months). 4 week f/u CBC and iron studies, then ENTERTAINER OR VARIETY ARTIST f/u with exam and labs in 4 [...] as noted above. 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 Dictated By: Bell Camargo MD DD/ 1032 Signed By: <Electronically signed by MD Bell Camargo> 03/10/23 1634 [facility] Work Phone: Progress note Author Jessika Alexander [facility] June 10, 2023 10:16am Note Date/Time June 10, 2023 9 :53am [facility] [place] [address] Hem/Onc Follow Up Note - OP Signed Patient: Terri Newton MR#: [id number] : 1945 Acct:[id number] Age/Sex: 78 / F Type: REG RCR [...] since iron infusions but followup labs at [place] show ongoing anemia with hemoglobin 8.1, iron [...] 1 month, next f/u 4 months with ENTERTAINER OR VARIETY ARTIST or myself. 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 She notes improving energy and weekly [...] Negative for environmental allergies and food allergies. [facility] - Medical History Medical History: Medical History [...] to assess response to folic acid and [id number] by insurance. Again has anemia 8.9 with iron sat 8.6%--agrees to repeat infusion of Injectafer 750mg IV x 2 weeks (has been getting this about once every 4 months). 4 week f/u CBC and iron studies, then ENTERTAINER OR VARIETY ARTIST f/u with exam and labs in 4 [...] as noted above. 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 Dictated By: Jessika Alexander APRN DD/ [id number] Signed By: <Electronically signed by LESLY Alexander> 06/10/23 101[address] [facility] Work Phone: Summary Purpose Family History [...] fibrillation status post cardioversion Iron deficiency anemia Chief Complaint Admit Date Follow Up December 18, 2024 2:3 7pm Iron Deficiency Anemia December 18, 2024 3:24pm Reason for Visit Admit Date Stage 3 chronic kidney disease November 2:37pm Angiodysplasia of gastrointestinal tract December 18, 2024 2:37pm Atrial fibrillation status post cardiove rsion December 18, 2024 2:37pm Iron deficiency anemia December 18, 2024 2:37pm Angiodysplasia of gastrointestinal tract December 18, 2024 3:24pm Atrial fibrillation status post cardiove rsion December 18, 2024 3:24pm COPD (chronic obstructive pulmonary dise ase) December 18, 2024 3:24pm Epigastric abdominal pain December 18 3:24pm Folate deficiency anemia, unspecified Ap ril 2024 3:24pm Hypertension December 18, 2024 3:2 4pm Hypothyroidism December 18, 2024 3:2 4pm Iron deficiency anemia December 18, 2024 3:24pm Additional Source Comments INFORMATION SOURCE (unrecogn ized section and content) DATE CREATED AUTHOR 07/02/2019 [facility] DATE CREATED AUTHOR AUTHOR'S ORGANIZ ATION 05/31/2020 [facility] DATE CREATED AUTHOR AUTHOR'S ORGANIZ ATION 12/04/2022 [facility] DATE CREATED AUTHOR AUTHOR'S ORGANIZ ATION 09/02/2024 [facility] DATE CREATED AUTHOR AUTHOR'S ORGANIZ ATION 09/23/2024 [facility] DATE CREATED AUTHOR AUTHOR'S ORGANIZ ATION 01/01/2025 [facility] DATE CREATED AUTHOR AUTHOR'S ORGANIZ ATION 04/14/2025 [facility] REASON FOR VISIT (unrecogniz ed section and content) Reason Comments COPD Hypertension Med Refill Zyrtec--DM [place] Reason Comments Atrial Fibrillation Hypertension Results Labs -CMP and CBC Reason Comments Follow-up Admitted [facility] dx: NSTEMI,copd exac,anemia discharged home 08/19/24 started on tessalon,advair,pantoprazole increased amlodipine stopped lasix,robaxin,zyrtec follow up cardiology 09/21/24 Pt states she is not going to follow up with GI states she has had a whole work up and does not need any further workup Med Refill Advair-- DM [place] referral request Pt states she was pr eviously (2020) referred to see dr maya but did not keep appt she would like a new referral sent to him Reason Comments Med Refill ROBAXIN--DM [place] URI [...] II MD Primary Care Provider Active Start: December 18, 2024 End: December 18, 2024 STEPHANY Galvan Attending Provider Active Start: December 18, 2024 End: December 18, 2024 Team Status: Active Member Role Status Dates Bell Camargo MD Attending Provider Active Start: December 18, 2024 Jarrell Granados MD Referring Provider Active S tart: December 18, 2024 Jayy Lomas II MD Primary Care Provider Active Start: December 18, 2024 Team Status: Active Member Role Status [...] Care Provider Active Start: September 28, 2023 Flooring Grader Relationship Specialty Start Date End Date Shaikh [...] January 07, 2024 End: January 07, 2024 Flooring Grader Relationship Specialty Start Date End Date Shaikh Reece MD [address] [place] [phone] PCP - General Internal Medicine 03/09/23 Flooring Grader Relationship Specialty Start Date End Date Shaikh Reece MD [address] [place] [phone] PCP - General Internal Medicine 03/09/23 Flooring Grader Relationship Specialty Start Date End Date Shaikh Reece MD [address] [place] [phone] PCP - General Internal Medicine 03/09/23 Flooring Grader Relationship Specialty Start Date End Date Shaikh Reece MD [address] [place] [phone] PCP - General Internal Medicine 03/09/23 Flooring Grader Relationship Specialty Start Date End Date Shaikh Reece MD [address] [place] [address] PCP - General Internal Medicine 03/09/23 Flooring Grader Relationship Specialty Start Date End Date Shaikh Reece MD [address] [place] [address] PCP - General Internal Medicine 03/09/23 Flooring Grader Relationship Specialty Start Date End Date Jayy Lomas MD [address] [place] [address] PCP - General Internal Medicine 08/15/24 Flooring Grader Relationship Specialty Start Date End Date Jayy Lomas MD [address] [place] [address] PCP - General Internal Medicine 08/15/24 Flooring Grader Relationship Specialty Start Date End Date Jayy Lomas MD [address] [place] [address] PCP - General Internal Medicine 08/15/24 Flooring Grader Relationship Specialty Start Date End Date Jayy Lomas MD [address] [place] [address] PCP - General Internal Medicine 08/15/24 Flooring Grader Relationship Specialty Start Date End Date Jayy Lomas MD [address] [place] [address] PCP - General Internal Medicine 08/15/24 Flooring Grader Relationship Specialty Start Date End Date Jayy Lomas MD [address] [place] [address] PCP - General Internal Medicine 08/15/24 Goals (unrecognized section and content) Goals may [...] BE BASED ON THE PRIMARY CLINICAL RECORDS. [employer] provides no warranty or guarantee of the accuracy or completeness of information in this document.
[2025-05-02 19:31] VITALS: BP 104/71; PULSE 83; TEMP 37.1; O2SAT 97; BMI 24.0
--- NOTE | 2025-05-02 19:39 | XR_ITS ---
[facility] [place] [id number] Patient Name: TERRI NEWTON MRN: [id number] date: 1945 Sex: F Assigned Patient Location: ER Current Patient Location: ER Accession/Order Number: [id number] Exam Date: 05/02/2025 19:48 Report Date: 05/02/2025 20:14 At the request of: ALBINO SILVEIRA Procedure: XR ribs RT 2V X-ray the right RIBS INDICATION: Pain status post fall COMPARISON: chest x-ray 12/22/2021 FINDINGS: Mildly enlarged cardiomediastinal silhouette. Lungs are clear. No effusion or pneumothorax. Degenerative changes right AC joint. No evidence of acute displaced rib fracture. XR/XR ribs RT 2V IMPRESSION: Negative acute displaced rib fracture Impression dictated by: Kavon Harvey M.D. 05/02/2025 8:14 PM Dictation Location: [place] [address] Electronically authenticated by: [id number] Y Date: 05/02/2025 20:14
--- NOTE | 2025-05-02 20:36 | ED_ITS ---
HPI HPI - Fall General Chief Complaint: Fall Stated Complaint: Fall Time Seen by Provider: 05/02/25 19:10 Source: patient Mode of arrival: walk-in Limitations: no limitations History of Present Illness HPI Narrative: cc - right lateral rib injury after fall Patient states that she tripped moving from her garage to her house and landed onto her right side, striking the threshold made out of wood. She did not hit her head but some of the students apparently reported that she may have transiently lost consciousness - although it sounds as if she was dazed. She now complains of pain along that lateral lower rib cage on the right. No other injuries. No extremity injuries. No neck or back pain. No headache. Related Data Home Medications ?Medication ?Instructions ?Recorded ?Confirmed amlodipine 5 mg tablet 5 mg PO DAILY 08/13/2405/02 cetirizine 10 mg tablet 10 mg PO DAILY 08/13/2404/23 levothyroxine 112 mcg tablet 112 mcg PO DAILY 08/13/24 05/02/25 methocarbamol 500 mg tablet 500 mg PO Q8H PRN muscle p ain 08/13/24 05/02/25 propafenone 150 mg tablet 150 mg PO Q12H 08/13/2404/23 furosemide 20 mg tablet 5 mg PO 05/02/25 Allergies Allergy/AdvReac Type Severity Reaction Status Date / Time No Known Drug Allergies Allergy Verified 05/02/25 19:31 Opioid HPI Opioid Management Most Recent Pain and Opioid Data: Last Pain Scale 8 Today, 19:31 [facility] Medical History (Updated 05/02/25 @ 20:42 by Gunnar Danielson) Atrial fibrillation ?I48.91 - Unspecified atrial fibrillation (ICD-10) Hypothyroid ?E03.9 - Hypothyroidism, unspecified (ICD-10) Hypertension ?I10 - Essential (primary) hypertension (ICD-10) Social History Little interest or pleasure in doing things: not at all Feeling down, depressed, or hopeless: not at all Exam Narrative Exam Narrative: Nurses note and vital signs reviewed and patient is not hypoxic. afebrile General: The patient appears well and in no apparent distress. Patient is resting comfortably on cart. GCS = 15. Skin: Warm, dry, no pallor noted. Head: Normocephalic, atraumatic Neck: Supple, trachea mid-line, no tenderness. Full ROM and no cervical spinal tenderness. The patient has no step-offs or crepitus noted Eyes: PERRLA, EOMI ENT: No facial, nasal, oral or maxillofacial injury Cardiovascular: Regular Rate and Rhythm Respiratory: Patient is in no distress, no accessory muscle use, lungs are clear to auscultation, no wheezing, rales or rhonchi Chest Wall: Lower rib cage tenderness on the right chest -mostly laterally. no flail chest or palpable fracture noted. No ecchymosis noted at this time. Back: No thoracic vertebral or lumbar vertebral tenderness to palpation. Musculoskeletal: no sign of long bone fracture. Moves all four extremities in all modalities with expected strength. GI: No tenderness to palpation, no masses appreciated. No rebound, guarding, or rigidity noted. Neurological: A&O x4, normal speech, normal coordination, normal motor, normal sensory. No truncal ataxia. Psychiatric: Cooperative Constitutional Vital Signs, click to edit/add: Last Vital Signs Temp 98.8 F 05/02/25 19:31 Pulse 83 05/02/25 19:31 Resp 18 05/02/25 19:31 BP 104/71 05/02/25 19:31 Pulse Ox 97 05/02/25 19:31 O2 Del Method Room Air 05/02/25 19:31 Course Vital Signs Vital signs: Vital Signs Temperature 98.8 F 05/02/25 19:31 Pulse Rate 83 05/02/25 19:31 Respiratory Rate 18 05/02/25 19:31 Blood Pressure 104/71 05/02/25 19:31 Pulse Oximetry 97 05/02/25 19:31 Oxygen Delivery Method Room Air 05/02/25 19:31 Temperature 98.8 F 05/02/25 19:31 Pulse Rate 83 05/02/25 19:31 Respiratory Rate 18 05/02/25 19:31 Blood Pressure 104/71 05/02/25 19:31 Pulse Oximetry 97 05/02/25 19:31 Oxygen Delivery Method Room Air 05/02/25 19:31 MDM - Fall MDM Narrative Medical decision making narrative: The triage nurse ordered x-rays of the right rib cage and these were obtained prior to the patient being brought back to an exam room. After I saw and evaluated the patient, I reviewed her negative rib x-rays with her. No fracture identified by the radiologist. She was given reassurance and we discussed outpatient treatment. She already has a prescription for methocarbamol. She is also able to take ibuprofen and Tylenol. She has that at home and she declined an offer for pain meds in the ED even ones to go . She told me, I just wanted to know whether or not anything was broken there. Patient discharged home with recommendation to limit her activity, rest. She was discouraged from binding the ribs. Reasons for ED return discussed including worsening pain, difficulty breathing, any other new or concerning symptoms. Imaging Data xr ribs: Radiologist's impression: ITS Impressions Ribs X-Ray 05/02/25 19:39 IMPRESSION: Negative acute displaced rib fracture Impression dictated by: Kavon Harvey M.D. 05/02/2025 8:14 PM Dictation Location: [facility] Electronically authenticated by: [id number] Y Date: 05/02/2025 20:14 Discharge Plan Discharge Chief Complaint: Fall Clinical Impression: Contusion of rib on right side Patient Disposition: Home, Self-Care Time of Disposition Decision: 20:41 Prescriptions / Home Meds: No Action amlodipine 5 mg tablet 5 mg PO DAILY cetirizine 10 mg tablet 10 mg PO DAILY levothyroxine 112 mcg tablet 112 mcg PO DAILY methocarbamol 500 mg tablet 500 mg PO Q8H PRN (Reason: muscle pain) propafenone 150 mg tablet 150 mg PO Q12H furosemide 20 mg tablet 5 mg PO Print Language: Wallisian Instructions: Rib Contusion (ED) Referrals: MARLEN CAVAZOS [Primary Care Provider, Internal Medicine] - 1 week
== END 2025-05-02 20:54 | disposition home or self-care (01) ==
PROVIDERS: Emergency Provider Emergency Medicine; PCP Internal Medicine
DX: S20.211A Contusion of right front wall of thorax, initial encounter (principal); W01.0XXA Fall on same level from slipping, tripping and stumbling without subsequent striking against object, initial encounter; Y92.015 Private garage of single-family (private) house as the place of occurrence of the external cause
CPT/HCPCS: 71100; 99283